=== PATIENT | male | born 1945 | race Caucasian/White ===

== ENCOUNTER → 2017-06-11 | Outpatient (CLI) | payer MEDICARE | END | disposition home or self-care (01) | LOC: MMGSC 15:41 | PROVIDERS: ATTEND Family Medicine | DX: N39.0 Urinary tract infection, site not specified (principal) | CPT/HCPCS: 87086 ==

== ENCOUNTER → 2018-02-16 | Outpatient (CLI) | payer MEDICARE ==
--- NOTE | 2018-02-16 12:07 | US ---
EXAMINATION TYPE: US extremity nonvasc complt RT DATE OF EXAM: 02/16/2018 COMPARISON: NONE CLINICAL HISTORY: RT bicep tendon rupture M66.821. Severe bruising and pain of the right upper or mid with very limited range of motion. TECHNIQUE: Daily scale images were obtained over the right upper extremity in the patient's area of pa in and bruising over the biceps tendon. Exam is limited by range of motion and patient's pain. FINDINGS: The biceps is torn, appearing as a complete retracted tear with intramuscular edema and pos sible intramuscular hematoma has been muscle body is heterogenous. Upper biceps appears to be within the bicipital groove. No subcutaneous fluid collection is seen. IMPRESSION: Sonographic findings indicative of complete biceps tear and intramuscular edema with pos sible intramuscular hematoma. MR could further assess these findings.
== END | disposition home or self-care (01) ==
LOC: RADUSWWP 10:36
PROVIDERS: ATTEND Family Medicine
DX: M66.821 Spontaneous rupture of other tendons, right upper arm (principal)

== ENCOUNTER 2018-06-22 11:23 | Observation (INO) | payer MEDICARE ==
[2018-06-22] MEDS ORDERED: MORPHINE SULFATE 4 MG/ML SYRINGE IVP STA (11:43)
[2018-06-22] MEDS ORDERED: ONDANSETRON 4 MG/2 ML VIAL IVP STA (11:43)
[2018-06-22] MEDS ORDERED: SODIUM CHLORIDE 0.9% 1,000 ML IV STA ×2 (11:43→13:48)
--- NOTE | 2018-06-22 12:09 | ED ---
Back Pain HPI - General Chief Complaint: Back Pain/Injury Stated Complaint: Back pain Time Seen by Provider: 06/22/18 11:27 Source: patient, RN notes reviewed, old records reviewed Limitations: no limitations - History of Present Illness Initial Comments: This is a 72-year-old male the ER for evaluation of severe back pain abdominal pain weakness nausea vomiting. Patient has no recent travel history sick contacts no recent medical history recent hospitalizations. MD Complaint: back pain, other (Patient denies injury) -: week(s) Similar Symptoms Previously: Yes Place: home Radiation: none Severity: mild Severity scale (1-10): 2 Quality: burning, dull, aching Consistency: constant Improves With: immobilization Worsens With: immobilization Associated Symptoms: weakness, loss of appetite, malaise, nausea/vomiting - Related Data Home Medications Medication Instructions Recorded Confirmed Albuterol Inhaler [Ventolin Hfa 1 - 2 puff INHALATION RT-Q6H PRN 06/22/18 Inhaler] Albuterol Sulfate 1.25 mg INHALATION RT-DAILY PRN 06/22/18 06/22/18 Aspirin EC [Ecotrin Low Dose] 81 mg PO DAILY 06/22/18 06/22/18 Budesonide/Formoterol Fumarate 2 puff INHALATION RT-BID 06/22/18 06/22/18 [Symbicort 160-4.5 Mcg Inhaler] Clopidogrel [Plavix] 75 mg PO DAILY 06/22/18 06/22/18 Ipratropium/Albuterol Sulfate 1 puff INHALATION RT-QID 06/22/18 06/22/18 [Combivent Respimat Inhaler] Lisinopril [Zestril] 2.5 mg PO DAILY 06/22/18 06/22/18 Metaxalone 800 mg PO Q8H PRN 06/22/18 06/22/18 Metoprolol Tartrate [Lopressor] 25 mg PO BID 06/22/18 06/22/18 Simvastatin 40 mg PO DAILY 06/22/18 06/22/18 Spironolactone 25 mg PO DAILY 06/22/18 06/22/18 methylPREDNISolone Dose Pack See Taper PO DIRECTED 06/22/18 06/22/18 [Medrol Dose Pack] Allergies Allergy/AdvReac Type Severity Reaction Status Date / Time levofloxacin [From Levaquin] Allergy TENDON PAIN Verified 06/22/18 11:57 Review of Systems ROS Statement: Those systems with pertinent positive or pertinent negative responses have been documented in the HPI. ROS Other: All systems not noted in ROS Statement are negative. Past Medical History Past Medical History: COPD, Hyperlipidemia, Hypertension, Myocardial Infarction ([place]), Pulmonary Embolus ([place]) History of Any Multi-Drug Resistant Organisms: None Reported Past Surgical History: Heart Catheterization With Stent Past Psychological History: No Psychological Hx Reported Smoking Status: Former smoker Past Alcohol Use History: Occasional Past Drug Use History: None Reported General Exam Limitations: no limitations General appearance: alert, in no apparent distress Head exam: Present: atraumatic, normocephalic, normal inspection Eye exam: Present: normal appearance, PERRL, EOMI. Absent: scleral icterus, conjunctival injection, periorbital swelling ENT exam: Present: normal exam, mucous membranes dry Neck exam: Present: normal inspection. Absent: tenderness, meningismus, lymphadenopathy Respiratory exam: Present: normal lung sounds bilaterally. Absent: respiratory distress, wheezes, rales, rhonchi, stridor Cardiovascular Exam: Present: regular rate, normal rhythm, normal heart sounds. Absent: systolic murmur, diastolic murmur, rubs, gallop, clicks GI/Abdominal exam: Present: soft, normal bowel sounds. Absent: distended, tenderness, guarding, rebound, rigid Extremities exam: Present: normal inspection, full ROM, normal capillary refill. Absent: tenderness, pedal edema, joint swelling, calf tenderness Back exam: Present: normal inspection Neurological exam: Present: alert, oriented X3, CN II-XII intact Psychiatric exam: Present: normal affect, normal mood Skin exam: Present: warm, dry, intact, normal color. Absent: rash Course Vital Signs 06/22/18 06/22/18 06/22/18 11:25 11:31 12:30 Temperature 97.7 F Pulse Rate 96 90 Respiratory 18 18 Rate Blood Pressure 116/63 116/63 125/68 O2 Sat by Pulse 94 L 90 L 94 L Oximetry 06/22/18 06/22/18 06/22/18 13:00 13:30 14:00 Temperature Pulse Rate 86 88 89 Respiratory 18 18 18 Rate Blood Pressure 122/63 125/54 127/69 O2 Sat by Pulse 96 95 92 L Oximetry 06/22/18 06/22/1806/22/19 14:12 14:30 15:45 Temperature Pulse Rate 82 81 96 Respiratory 11 L 72 H Rate Blood Pressure 126/69 123/84 O2 Sat by Pulse 98 98 Oximetry - Reevaluation(s) Reevaluation #1: 06/22/18 12:08 Medical record is reviewed Reevaluation #2: 06/22/18 12:08 Patient is improvement in nausea no improvement in pain currently Reevaluation #3: 06/22/18 15:19 Patient had fully placed does have significant urine output. Reevaluation #4: 06/22/18 15:19 Pain is patient does have improvement of pain, patient is still unable to amylase secondary to pain - Consultations Consultation #1: Yes spoke with some physicians, ladonna Quintana for admission Medical Decision Making - Medical Decision Making 72-year-old male the ER for severe back pain times a 5 weeks. No trauma. Patient is CAT scan here which is negative no significant neurological dysfunction is noted. Patient is able to ambulate here in the emergency room. Patient has mild urinary retention which is relieved does have improvement of pain. - Lab Data Result diagrams: 06/22/18 12:07 06/22/18 12:07 Lab Results 06/22/18 06/22/18 06/22/18 Range/Units 12:07 12:07 12:07 WBC 10.8 H (3.8-10.6) k/uL RBC 5.77 (4.30-5.90) m/uL Hgb 17.5 (13.0-17.5) gm/dL Hct 51.5 (39.0-53.0) % MCV 89.3 (80.0-100.0) fL MCH 30.4 (25.0-35.0) pg MCHC 34.0 (31.0-37.0) g/dL RDW 13.0 (11.5-15.5) % Plt Count 287 (150-450) k/uL Neutrophils % 78 % Lymphocytes % 11 % Monocytes % 8 % Eosinophils % 1 % Basophils % 1 % Neutrophils # 8.4 H (1.3-7.7) k/uL Lymphocytes # 1.2 (1.0-4.8) k/uL Monocytes # 0.9 (0-1.0) k/uL Eosinophils # 0.1 (0-0.7) k/uL Basophils # 0.1 (0-0.2) k/uL PT (9.0-12.0) sec INR (<1.2) APTT (22.0-30.0) sec Sodium 134 L (137-145) mmol/L Potassium 4.3 (3.5-5.1) mmol/L Chloride 98 (98-107) mmol/L Carbon Dioxide 25 (22-30) mmol/L Anion Gap 11 mmol/L BUN 32 H (9-20) mg/dL Creatinine 1.18 (0.66-1.25) mg/dL Est GFR (CKD-EPI)AfAm 72 (>60 ml/min/1.73 sqM) Est GFR (CKD-EPI)NonAf 62 (>60 ml/min/1.73 sqM) Glucose 115 H (74-99) mg/dL Plasma Lactic Acid Sandor 1.2 (0.7-2.0) mmol/L Calcium 9.5 (8.4-10.2) mg/dL Phosphorus 3.5 (2.5-4.5) mg/dL Magnesium 1.6 (1.6-2.3) mg/dL Total Bilirubin 0.8 (0.2-1.3) mg/dL AST 21 (17-59) U/L ALT 32 (21-72) U/L Alkaline Phosphatase 50 (38-126) U/L Troponin I (0.000-0.034) ng/mL NT-Pro-B Natriuret Pep pg/mL Total Protein 7.2 (6.3-8.2) g/dL Albumin 4.2 (3.5-5.0) g/dL Urine Color Urine Appearance (Clear) Urine pH (5.0-8.0) Ur Specific [place] (1.001-1.035) Urine Protein (Negative) Urine Glucose (UA) (Negative) Urine Ketones (Negative) Urine Blood (Negative) Urine Nitrite (Negative) Urine Bilirubin (Negative) Urine Urobilinogen (<2.0) mg/dL Ur Leukocyte Esterase (Negative) Urine RBC (0-5) /hpf Urine WBC (0-5) /hpf Urine Bacteria (None) /hpf Urine Mucus (None) /hpf 02/26/19 02/26/19 02/26/19 Range/Units 12:07 12:07 12:07 WBC (3.8-10.6) k/uL RBC (4.30-5.90) m/uL Hgb (13.0-17.5) gm/dL Hct (39.0-53.0) % MCV (80.0-100.0) fL MCH (25.0-35.0) pg MCHC (31.0-37.0) g/dL RDW (11.5-15.5) % Plt Count (150-450) k/uL Neutrophils % % Lymphocytes % % Monocytes % % Eosinophils % % Basophils % % Neutrophils # (1.3-7.7) k/uL Lymphocytes # (1.0-4.8) k/uL Monocytes # (0-1.0) k/uL Eosinophils # (0-0.7) k/uL Basophils # (0-0.2) k/uL PT 10.1 (9.0-12.0) sec INR 0.9 (<1.2) APTT 22.2 (22.0-30.0) sec Sodium (137-145) mmol/L Potassium (3.5-5.1) mmol/L Chloride (98-107) mmol/L Carbon Dioxide (22-30) mmol/L Anion Gap mmol/L BUN (9-20) mg/dL Creatinine (0.66-1.25) mg/dL Est GFR (CKD-EPI)AfAm (>60 ml/min/1.73 sqM) Est GFR (CKD-EPI)NonAf (>60 ml/min/1.73 sqM) Glucose (74-99) mg/dL Plasma Lactic Acid Sandor (0.7-2.0) mmol/L Calcium (8.4-10.2) mg/dL Phosphorus (2.5-4.5) mg/dL Magnesium (1.6-2.3) mg/dL Total Bilirubin (0.2-1.3) mg/dL AST (17-59) U/L ALT (21-72) U/L Alkaline Phosphatase (38-126) U/L Troponin I <0.012 (0.000-0.034) ng/mL NT-Pro-B Natriuret Pep 286 pg/mL Total Protein (6.3-8.2) g/dL Albumin (3.5-5.0) g/dL Urine Color Urine Appearance (Clear) Urine pH (5.0-8.0) Ur Specific [place] (1.001-1.035) Urine Protein (Negative) Urine Glucose (UA) (Negative) Urine Ketones (Negative) Urine Blood (Negative) Urine Nitrite (Negative) Urine Bilirubin (Negative) Urine Urobilinogen (<2.0) mg/dL Ur Leukocyte Esterase (Negative) Urine RBC (0-5) /hpf Urine WBC (0-5) /hpf Urine Bacteria (None) /hpf Urine Mucus (None) /hpf 06/22/18 Range/Units 14:59 WBC (3.8-10.6) k/uL RBC (4.30-5.90) m/uL Hgb (13.0-17.5) gm/dL Hct (39.0-53.0) % MCV (80.0-100.0) fL MCH (25.0-35.0) pg MCHC (31.0-37.0) g/dL RDW (11.5-15.5) % Plt Count (150-450) k/uL Neutrophils % % Lymphocytes % % Monocytes % % Eosinophils % % Basophils % % Neutrophils # (1.3-7.7) k/uL Lymphocytes # (1.0-4.8) k/uL Monocytes # (0-1.0) k/uL Eosinophils # (0-0.7) k/uL Basophils # (0-0.2) k/uL PT (9.0-12.0) sec INR (<1.2) APTT (22.0-30.0) sec Sodium (137-145) mmol/L Potassium (3.5-5.1) mmol/L Chloride (98-107) mmol/L Carbon Dioxide (22-30) mmol/L Anion Gap mmol/L BUN (9-20) mg/dL Creatinine (0.66-1.25) mg/dL Est GFR (CKD-EPI)AfAm (>60 ml/min/1.73 sqM) Est GFR (CKD-EPI)NonAf (>60 ml/min/1.73 sqM) Glucose (74-99) mg/dL Plasma Lactic Acid Sandor (0.7-2.0) mmol/L Calcium (8.4-10.2) mg/dL Phosphorus (2.5-4.5) mg/dL Magnesium (1.6-2.3) mg/dL Total Bilirubin (0.2-1.3) mg/dL AST (17-59) U/L ALT (21-72) U/L Alkaline Phosphatase (38-126) U/L Troponin I (0.000-0.034) ng/mL NT-Pro-B Natriuret Pep pg/mL Total Protein (6.3-8.2) g/dL Albumin (3.5-5.0) g/dL Urine Color Yellow Urine Appearance Clear (Clear) Urine pH 5.5 (5.0-8.0) Ur Specific [place] 1.028 (1.001-1.035) Urine Protein 1+ H (Negative) Urine Glucose (UA) Negative (Negative) Urine Ketones 1+ H (Negative) Urine Blood Small H (Negative) Urine Nitrite Negative (Negative) Urine Bilirubin Negative (Negative) Urine Urobilinogen <2.0 (<2.0) mg/dL Ur Leukocyte Esterase Negative (Negative) Urine RBC 5 (0-5) /hpf Urine WBC 4 (0-5) /hpf Urine Bacteria Rare H (None) /hpf Urine Mucus Rare H (None) /hpf - EKG Data -: EKG Interpreted by Me (EKG shows sinus rhythm rate of 100, RI 140, QRS 94, QTC 446) - Radiology Data Radiology results: report reviewed (CT chest and pelvis negative for acute disease), image reviewed Disposition Clinical Impression: Mid back pain, Lumbar back pain, Urinary retention, Unable to ambulate Disposition: ADMITTED IP TO THIS [facility] Condition: Fair Is patient prescribed a controlled substance at d/c from ED?: No Referrals: Sherie Branch MD [Primary Care Provider] - 1-2 days
[2018-06-22 12:17] LABS: Basophils # (A) 0.1 k/uL (0-0.2); Basophils % (A) 1 %; Eosinophils # (A) 0.1 k/uL (0-0.7); Eosinophils % (A) 1 %; HCT 51.5 % (39.0-53.0); HGB 17.5 gm/dL (13.0-17.5); Lymphocytes # (A) 1.2 k/uL (1.0-4.8); Lymphocytes % (A) 11 %; MCH 30.4 pg (25.0-35.0); MCV 89.3 fL (80.0-100.0); Mean Platelet Volume 7.5; Monocytes # (A) 0.9 k/uL (0-1.0); Monocytes % (A) 8 %; Neutrophils # (A) 8.4 k/uL (1.3-7.7); Neutrophils % (A) 78 %; Platelet Count 287 k/uL (150-450); RBC 5.77 m/uL (4.30-5.90); WBC 10.8 k/uL (3.8-10.6)
[2018-06-22 12:28] LABS: Albumin 4.2 g/dL (3.5-5.0); Calcium 9.5 mg/dL (8.4-10.2); Magnesium 1.6 mg/dL (1.6-2.3); Phosphorus 3.5 mg/dL (2.5-4.5); Potassium 4.3 mmol/L (3.5-5.1); Total Bilirubin 0.8 mg/dL (0.2-1.3); Total Protein 7.2 g/dL (6.3-8.2)
[2018-06-22 12:34] LABS: INR 0.9 (<1.2); Partial Thromboplastin Time 22.2 sec (22.0-30.0); Prothrombin Time 10.1 sec (9.0-12.0)
[2018-06-22] MEDS ORDERED: IPRATROPIUM-ALBUTEROL 3 ML NEB INHALATION STA (13:48)
[2018-06-22] MEDS ORDERED: methylPREDNISolone SOD SUCCI 125 MG/2 ML VIAL IV STA (13:48)
--- NOTE | 2018-06-22 13:57 | CT ---
EXAMINATION TYPE: CT angio chest DATE OF EXAM: 06/22/2018 COMPARISON: None HISTORY: 72-year-old male severe back pain, lack of urination TECHNIQUE: Contiguous axial scanning of the chest performed with IV Contrast, patient injected with 1 00 mL of Isovue 370. Delayed images through the kidneys were obtained. Coronal/sagittal MIP reconstru ctions performed. CT DLP: 2723.7 (CTA chest and CT abd pelvis) mGycm Automated exposure control for dose reduction was used. FINDINGS: Heart is normal size without pericardial effusion. No flattening of the interventricular septum or re flux of contrast into the hepatic veins. Coronary artery calcifications are present. Ascending aorta borderline aneurysmal at 3.9 to 4.0 cm. Conventional arch vessel branching anatomy. N o evidence for aortic dissection. Ectatic lower descending thoracic aorta 2.6 cm. Mildly enlarged caliber to the main right and left pulmonary arteries measuring up to 2.7 cm. Satisfa ctory opacification of the pulmonary arterial system no pulmonary embolus is seen. Calcified subcarinal and right hilar lymph nodes. Prominent right hilar lymph node measures 1.1 cm. Prominent 9 mm inferior left bronchial lymph node, axial image 81 and left hilar lymph nodes measurin g up to 8 mm axial image 74. Small calcified granulomas right perihilar region and strandy atelectasis or scarring at the left bas e. Mild bronchial wall thickening especially centrally. No consolidation or pleural effusion. 5 mm subpleural pulmonary nodule lateral right base, axial image 1:15 to be reassessed at follow-up. Visualized upper abdomen shows calcified granulomas in the spleen. Bones: Anterior endplate spondylosis mid to lower thoracic spine. IMPRESSION: 1. NO EVIDENCE FOR PULMONARY EMBOLUS OR AORTIC DISSECTION. 2. COPD WITH MILD EMPHYSEMA AND FINDINGS SUGGESTING UNDERLYING PULMONARY ARTERIAL HYPERTENSION. 3. PRIOR GRANULOMATOUS DISEASE. 4. SOME BORDERLINE-SIZED HILAR LYMPH NODES MEASURING UP TO 1.1 CM AND A 5 MM RIGHT BASILAR PULMONARY NODULE. SIX-MONTH FOLLOW-UP RECOMMENDED TO REASSESS.
--- NOTE | 2018-06-22 13:58 | CT ---
EXAMINATION TYPE: CT abdomen pelvis w con DATE OF EXAM: 06/22/2018 COMPARISON: None. HISTORY: Severe back pain, lack of urination CT DLP: 2723.7 (CTA chest and CT abd pelvis) mGycm, Automated Exposure Control for Dose Reduction was Utilized. CONTRAST: CT scan of the abdomen and pelvis is performed without oral but with IV Contrast, patient injected wi th 100 mL of Isovue 370. FINDINGS: LUNG BASES: Please refer to same day CTA chest report for complete details on lung bases. LIVER/GB: Liver is somewhat small in size. Gallbladder has distended margins without CT dense intralu berto gallstones or surrounding inflammatory change. PANCREAS: Mild generalized fat replaced atrophy. SPLEEN: Numerous calcifications throughout the spleen are present product of old granulomatous diseas e. ADRENALS: No significant abnormality is seen. KIDNEYS: A few simple appearing thin-walled cortical cyst bilaterally are noted. There is symmetric c ortical medullary uptake and excretion from both kidneys without hydronephrosis or concerning solid r enal mass bilaterally. Bladder is satisfactorily distended without intraluminal mass or calculus. BOWEL: Occasional diverticula in the colon are present. No acute diverticulitis. No suspicious small or large bowel dilatation. Normal-appearing appendix extends medially from the cecum. PROSTATE/SEMINAL VESICLES: A few left-sided pelvic phleboliths are seen. Prostate gland is normal in size. LYMPH NODES: No greater than 1cm abdominal or pelvic lymph nodes are appreciated. OSSEOUS STRUCTURES: Moderate multilevel spurring in the thoracolumbar spine. There is moderate disc s pace narrowing L4-L5 level with vacuum disc phenomenon. There is multilevel facet arthropathy in the lower lumbar spine.. OTHER: Moderate to severe mixed plaque in the abdominal aorta extends into iliac branch vessels. IMPRESSION: No significant acute finding is seen to account for patient's clinical symptoms of sever e back pain and dysuria.
[2018-06-22 15:06] LABS: Appearance,Urine Clear (Clear); Bacteria,Urine Rare /hpf; Bilirubin,Urine Negative (Negative); Blood,Urine Small (Negative); Color,Urine Yellow; Glucose,Urine (UA) Negative (Negative); Ketones,Urine 1+ (Negative); Leukocyte Esterase,Urine Negative (Negative); Mucus,Urine Rare /hpf; Nitrite,Urine Negative (Negative); PH, Urine 5.5 (5.0-8.0); Protein,Urine 1+ (Negative); RBC,Urine 5 /hpf (0-5); Specific Gravity,Urine 1.028 (1.001-1.035); Urobilinogen,Urine <2.0 mg/dL (<2.0); WBC,Urine 4 /hpf (0-5)
[2018-06-22] MEDS ORDERED: KETOROLAC 30 MG/ML 1 ML VIAL IVP STA (15:18)
[2018-06-22] MEDS ORDERED: HYDROmorphone 0.5 MG/0.5 ML SYRINGE IVP STA (15:18)
[2018-06-22] MEDS ORDERED: ACET/COD 300 MG/30 MG STARTER PACK 6 TAB BTL PO STA (15:21)
[2018-06-22] MEDS ORDERED: MORPHINE SULFATE 4 MG/ML SYRINGE IVP PRN (16:13)
[2018-06-22] MEDS ORDERED: ACETAMINOPHEN TAB 325 MG TAB PO PRN (16:56)
[2018-06-22] MEDS ORDERED: NALOXONE 0.4 MG/ML 1 ML VIAL IV PRN (16:56)
[2018-06-22] MEDS ORDERED: IPRATROPIUM-ALBUTEROL 3 ML NEB INHALATION PRN (17:15)
--- NOTE | 2018-06-22 17:18 | P.HPIM ---
History of Present Illness H&P Date: 06/22/18 Chief Complaint: Back pain 72-year-old male with PMH of CAD post stents, COPD, hypertension presents the ED for back pain. Patient reports that this back pain has been ongoing for the past 5 weeks, he woke up with the pain initially. Pain is located in the midline back area, continuous but waxes and wanes from 8- 10 out of 10 in severity. Patient reports that the pain radiates to the right hip and the right lower extremity down to his foot. Pain is aggravated with walking and with sitting. There are no alleviating factors. There is no prior incidents. Patient denies any trauma or heavy lifting prior to the initial onset of back pain 5 weeks ago. Patient reports that he went to [facility] and was given a steroid injection along with [place] and muscle relaxant, was told it was sciatica. Patient reports that none of these treatment helped. Patient reports going to his chiropractor for x-rays were obtained which showed arthritis of the back. His symptoms did not get better, prompting him to come to the ED. He denies any lower extremity weakness, bladder or bowel incontinence, saddle anesthesia. Patient denies any headache, lower extremity edema, nausea, vomiting, fever, cough, chest pain, shortness of breath, palpitations, dizziness. Patient does report a poor appetite for the past 5 weeks. In the ED, CBC showed a mild leukocytosis of 10.8. CMP showed a sodium of 134, BUN of 32 and glucose of 115. Urinalysis showed small blood. CT of the abdomen and pelvis was negative. CTA of the chest show no evidence of pulmonary embolus or aortic dissection, COPD with mild emphysema, 5 mm right basilar pulmonary nodule. Patient is admitted for intractable back pain, Orthopedic surgery on consult. Review of Systems All systems: negative Past Medical History Past Medical History: COPD, Hyperlipidemia, Hypertension, Myocardial Infarction ([place]), Pulmonary Embolus ([place]) History of Any Multi-Drug Resistant Organisms: None Reported Past Surgical History: Heart Catheterization With Stent Past Psychological History: No Psychological Hx Reported Smoking Status: Former smoker Past Alcohol Use History: Occasional Past Drug Use History: None Reported Medications and Allergies Home Medications Medication Instructions Recorded Confirmed Type Albuterol Inhaler [Ventolin Hfa 1 - 2 puff INHALATION RT-Q6H PRN 06/22/18 History Inhaler] Albuterol Sulfate 1.25 mg INHALATION RT-DAILY PRN 06/22/18 06/22/18 History Aspirin EC [Ecotrin Low Dose] 81 mg PO DAILY 06/22/18 06/22/18 History Budesonide/Formoterol Fumarate 2 puff INHALATION RT-BID 06/22/18 06/22/18 History [Symbicort 160-4.5 Mcg Inhaler] Clopidogrel [Plavix] 75 mg PO DAILY 06/22/18 06/22/18 History Ipratropium/Albuterol Sulfate 1 puff INHALATION RT-QID 06/22/18 06/22/18 History [Combivent Respimat Inhaler] Lisinopril [Zestril] 2.5 mg PO DAILY 06/22/18 06/22/18 History Metaxalone 800 mg PO Q8H PRN 06/22/18 06/22/18 History Metoprolol Tartrate [Lopressor] 25 mg PO BID 06/22/18 06/22/18 History Simvastatin 40 mg PO DAILY 06/22/18 06/22/18 History Spironolactone 25 mg PO DAILY 06/22/18 06/22/18 History methylPREDNISolone Dose Pack See Taper PO DIRECTED 06/22/18 06/22/18 History [Medrol Dose Pack] Allergies Allergy/AdvReac Type Severity Reaction Status Date / Time levofloxacin [From [facility] [place]] Allergy TENDON PAIN Verified 06/22/18 11:57 Physical Exam Vitals: Vital Signs Temp Pulse Resp BP Pulse Ox 06/22/18 16:58 98.2 F 95 18 138/85 98 06/22/18 15:45 96 72 H 123/84 98 06/22/18 14:30 81 11 L 126/69 98 06/22/18 14:12 82 06/22/18 14:00 89 18 127/69 92 L 06/22/18 13:30 88 18 125/54 95 06/22/18 13:00 86 18 122/63 96 06/22/18 12:30 90 18 125/68 94 L 06/22/18 11:31 116/63 90 L 06/22/18 11:25 97.7 F 96 18 116/63 94 L Intake and Output 06/22/18 06/22/18 06/22/18 06:59 14:59 22:59 Output Total 500 Balance -500 Output: Urine 500 Uretheral (Villegas) 500 Other: Weight 122.016 kg General: [non toxic], [no distress], [appears at stated age] Derm: [warm], [dry] Head: [atraumatic], [normocephalic], [symmetric] Eyes: [EOMI], [no lid lag], [anicteric sclera] Mouth: [no lip lesion], [mucus membranes moist] Cardiovascular: [S1S2 reg], [no murmur], [positive posterior tibial pulse bilateral], Lungs: [Decreased breath sounds bilateral], [no rhonchi, no rales] , [no accessory muscle use] Abdominal: [soft], [ nontender to palpation], [no guarding], [no appreciable organomegaly] Ext: [no gross muscle atrophy], [no edema], [no contractures] Neuro: [ CN II-XI grossly intact], [no focal neuro deficits] Psych: [Alert], [oriented], [appropriate affect] Midline tenderness in the lumbar and sacral spine. SLR positive right side. Strength equal in the lower extremities. Sensation intact to touch in the lower extremities. Results CBC & Chem 7: 06/22/18 12:07 06/22/18 12:07 Labs: Abnormal Lab Results - Last 24 Hours (Table) 06/22/18 06/22/18 06/22/18 Range/Units 12:07 12:07 14:59 WBC 10.8 H (3.8-10.6) k/uL Neutrophils # 8.4 H (1.3-7.7) k/uL Sodium 134 L (137-145) mmol/L BUN 32 H (9-20) mg/dL Glucose 115 H (74-99) mg/dL Urine Protein 1+ H (Negative) Urine Ketones 1+ H (Negative) Urine Blood Small H (Negative) Urine Bacteria Rare H (None) /hpf Urine Mucus Rare H (None) /hpf Thrombosis Risk Factor Assmnt - Choose All That Apply Each Factor Represents 1 point: Abnormal pulmonary function (COPD) Other Risk Factors: Yes Each Risk Factor Represents 2 Points: Age 61-74 years Thrombosis Risk Factor Assessment Total Risk Factor Score: 3 Thrombosis Risk Factor Assessment Level: Moderate Risk Assessment and Plan Assessment: Assessment and Plan 1. Lower back pain: Appears as sciatica, concerns for cord compression. CT abdomen and pelvis unremarkable for cause of back pain. CTA of the chest unremarkable as well for cause of back pain. Pain management with Tylenol, [place] and Tylenol added IV. Advanced neurochecks. Fall precautions. Follow urine cultures. Follow physical therapy and occupational therapy consult. Follow orthopedic surgery consult. 2. COPD: Stable. DuoNeb as needed 4 times a day for shortness of breath or wheezing. 3. CAD: Post stents. Continue aspirin, Lipitor and Plavix. Continue beta nicho. 4. Hypertension: BP 138/85. Continue lisinopril, metoprolol, spironolactone. Monitor vitals, adjust medications as necessary. 5. Leukocytosis: Leukocytosis of 10.8 with neutrophilia likely secondary to steroid injection in the past. No signs of infection. Follow urine cultures. Daily CBC. 6. Elevated BUN: BUN 32, creatinine within normal limits. Likely secondary to dehydration. Encourage by mouth hydration. Daily BMP. Avoid nephrotoxins. 7. Urinary retention: As per ED note. Patient reports no changes in his urination. UA shows 1+ protein, 1+ ketone, small blood. Villegas inserted in the ED, will discontinue. Strict in's and outs. Follow urine cultures. 8. Pleural nodule: As seen on CTA chest. Will need adequate outpatient follow- up. Patient admitted for intractable lower back pain, lives alone. Pending orthopedic, PT and OT evaluation. Likely DC in 1-2 days.
[2018-06-22] MEDS: HYDROmorphone 1 MG/ML 1 ML SYRINGE IV PRN ×2 (18:26→22:58)
[2018-06-22] MEDS: SYMBICORT 160-4.5 MCG INHALER INHALATION SCH (21:10)
[2018-06-22] MEDS: HYDROcodone/APAP 5-325MG 1 EACH TAB PO PRN (21:11)
[2018-06-22] MEDS: METOPROLOL TARTRATE 25 MG TAB PO SCH (21:11)
[2018-06-23] MEDS: HYDROmorphone 1 MG/ML 1 ML SYRINGE IV PRN ×4 (04:06→21:52)
[2018-06-23] MEDS: HYDROcodone/APAP 5-325MG 1 EACH TAB PO PRN ×4 (05:29→23:41)
[2018-06-23] MEDS: SYMBICORT 160-4.5 MCG INHALER INHALATION SCH ×2 (08:06→20:09)
[2018-06-23] MEDS: CLOPIDOGREL 75 MG TAB PO SCH (09:08)
[2018-06-23] MEDS: SPIRONOLACTONE 25 MG TAB PO SCH (09:08)
[2018-06-23] MEDS: METOPROLOL TARTRATE 25 MG TAB PO SCH ×2 (09:08→21:30)
[2018-06-23] MEDS: LISINOPRIL 2.5 MG TAB PO SCH (09:08)
[2018-06-23] MEDS: ATORVASTATIN 20 MG TAB PO SCH (09:08)
[2018-06-23] MEDS: ENOXAPARIN 40 MG/0.4 ML SYRINGE SQ SCH (09:09)
[2018-06-23] MEDS: ASPIRIN 81 MG PO SCH (09:09)
[2018-06-23 09:10] LABS: Basophils % (A) 0 %; Eosinophils # (A) 0.1 k/uL (0-0.7); Eosinophils % (A) 1 %; HCT 50.6 % (39.0-53.0); HGB 16.3 gm/dL (13.0-17.5); Lymphocytes % (A) 7 %; MCH 29.4 pg (25.0-35.0); MCHC 32.1 g/dL (31.0-37.0); MCV 91.6 fL (80.0-100.0); Mean Platelet Volume 7.1; Monocytes # (A) 0.9 k/uL (0-1.0); Monocytes % (A) 7 %; Neutrophils # (A) 11.4 k/uL (1.3-7.7); Neutrophils % (A) 84 %; Platelet Count 289 k/uL (150-450); RBC 5.53 m/uL (4.30-5.90); RDW 12.9 % (11.5-15.5); WBC 13.5 k/uL (3.8-10.6)
[2018-06-23 09:44] LABS: Anion Gap 11 mmol/L; Blood Urea Nitrogen 26 mg/dL (9-20); Calcium 9.3 mg/dL (8.4-10.2); Carbon Dioxide 25 mmol/L (22-30); Chloride 96 mmol/L (98-107); Glucose 97 mg/dL (74-99); Potassium 5.3 mmol/L (3.5-5.1); Sodium 132 mmol/L (137-145)
--- NOTE | 2018-06-23 11:30 | P.PN ---
Subjective Progress Note Date: 06/23/18 Principal diagnosis: Lower back pain Patient was seen and examined. No acute events overnight. Patient reports great improvement in his back pain since starting his pain regimen. Pain is currently 210 in severity. He denies any bladder or bowel incontinence. No saddle anesthesia. Patient requesting that the Villegas be taken out as he does not have bladder incontinence. He denies chest pain, shortness of breath or palpitations. Objective - Vital Signs Vital signs: Vital Signs Temp 97.6 F 06/23/18 05:00 Pulse 76 06/23/18 08:00 Resp 18 06/23/18 08:00 BP 135/73 06/23/18 05:00 Pulse Ox 93 L 06/23/18 05:00 Intake & Output 06/22/18 06/23/18 06/23/18 18:59 06:59 18:59 Intake Total 1180 1280 Output Total 500 800 700 Balance 680 480 -700 Weight 122.5 kg Intake: Oral 1180 1280 Output: Urine 500 800 700 Uretheral (Villegas) 500 800 700 Other: Voiding Method Indwelling Catheter Indwelling Catheter - Exam General: [non toxic], [no distress], [appears at stated age] Derm: [warm], [dry] Head: [atraumatic], [normocephalic], [symmetric] Eyes: [EOMI], [no lid lag], [anicteric sclera] Mouth: [no lip lesion], [mucus membranes moist] Cardiovascular: [S1S2 reg], [no murmur], [positive posterior tibial pulse bilateral], Lungs: [Decreased breath sounds bilateral], [no rhonchi, no rales] , [no accessory muscle use] Abdominal: [soft], [ nontender to palpation], [no guarding], [no appreciable organomegaly] Ext: [no gross muscle atrophy], [no edema], [no contractures] Neuro: [ CN II-XI grossly intact], [no focal neuro deficits] Psych: [Alert], [oriented], [appropriate affect] Midline tenderness in the lumbar and sacral spine. SLR positive right side. Strength equal in the lower extremities. Sensation intact to touch in the lower extremities. - Labs CBC & Chem 7: 06/23/18 07:32 06/23/18 07:32 Labs: Abnormal Lab Results - Last 24 Hours (Table) 06/22/18 06/22/18 06/22/18 Range/Units 12:07 12:07 14:59 WBC 10.8 H (3.8-10.6) k/uL Neutrophils # 8.4 H (1.3-7.7) k/uL Sodium 134 L (137-145) mmol/L Potassium (3.5-5.1) mmol/L Chloride (98-107) mmol/L BUN 32 H (9-20) mg/dL Glucose 115 H (74-99) mg/dL Urine Protein 1+ H (Negative) Urine Ketones 1+ H (Negative) Urine Blood Small H (Negative) Urine Bacteria Rare H (None) /hpf Urine Mucus Rare H (None) /hpf 06/23/18 06/23/18 Range/Units 07:32 07:32 WBC 13.5 H (3.8-10.6) k/uL Neutrophils # 11.4 H (1.3-7.7) k/uL Sodium 132 L (137-145) mmol/L Potassium 5.3 H (3.5-5.1) mmol/L Chloride 96 L (98-107) mmol/L BUN 26 H (9-20) mg/dL Glucose (74-99) mg/dL Urine Protein (Negative) Urine Ketones (Negative) Urine Blood (Negative) Urine Bacteria (None) /hpf Urine Mucus (None) /hpf Microbiology - Last 24 Hours (Table) 06/22/18 14:59 Urine Culture - Preliminary Urine,Catheterized Assessment and Plan Assessment: Assessment and Plan 1. Lower back pain: Appears as sciatica, concerns for cord compression. CT abdomen and pelvis shows moderate spurring in the thoracolumbar spine, moderate disc space narrowing L4-L5 with vacuum disc phenomenon, multilevel facet arthropathy. CTA of the chest unremarkable for cause of back pain. Pain management with Tylenol, [place] and Tylenol added IV. Advanced neurochecks. Fall precautions. Remove Villegas, follow urine cultures. Follow physical therapy and occupational therapy consult. Follow orthopedic surgery consult. 2. Hyperkalemia: Potassium 5.3. Likely secondary to spironolactone use, lisinopril. EKG without T-wave changes. Patient asymptomatic. Repeat BMP this afternoon. 3. COPD: Stable. DuoNeb as needed 4 times a day for shortness of breath or wheezing. 4. CAD: Post stents. Continue aspirin, Lipitor and Plavix. Continue beta nicho. 5. Hypertension: BP 135/73. Continue lisinopril, metoprolol, spironolactone. Monitor vitals, adjust medications as necessary. 6. Leukocytosis: Leukocytosis of 10.8-13.5 with neutrophilia likely secondary to steroid injection in the past. No signs of infection. Follow urine cultures. Daily CBC. 7. Elevated BUN: BUN 32-26, creatinine within normal limits. Likely secondary to dehydration. Encourage by mouth hydration. Daily BMP. Avoid nephrotoxins. 8. Urinary retention: As per ED note. Patient reports no changes in his urination. UA shows 1+ protein, 1+ ketone, small blood. Verbal instruction to nurse to discontinue Villegas. Strict in's and outs. Follow urine cultures. 9. Pleural nodule: As seen on CTA chest. Will need adequate outpatient follow- up. Patient admitted for intractable lower back pain, lives alone. Pending orthopedic, PT and OT evaluation.
--- NOTE | 2018-06-23 19:37 | P.CNOR ---
History of Present Illness - [facility] Consult date: 06/23/18 Requesting physician: Sarbjit Landa Consult reason: low back pain, other (Right lower extremity radiculopathy) History of present illness: Patient is a pleasant 72-year-old male who is seen and examined the bedside for further evaluation after consultation was placed for evaluation of low back pain and right lower extremity radiculopathy. Patient states approximately 5 weeks ago he woke up with pain in the low back radiating down the right lower extremity without injury. He states the pain radiates from the low back, to the right buttock, down the posterior lateral thigh, over the knee, down the inman, and over the top of the foot. He denies any specific lower extremity weakness bilaterally. He denies any left lower extremity radiculopathy. He states he initially presented to [facility] for the same symptoms. He states he was given an injection, a prescription for [place], and prescription for a muscle relaxer which did not provide any significant improvement of symptoms. He presented to [facility] emergency department for further evaluation after his symptoms have continued to be significant without any improvement. CT of the abdomen and pelvis was taken while in the emergency department. He states he has had poor appetite over the past 5 weeks and has decreased his food intake and fluid intake. He states he has lost 23 pounds over the past 5 weeks. He does have a past medical history which includes coronary artery disease with stenting, COPD, myocardial infarction, pulmonary embolism and hypertension. Past Medical History Past Medical History: COPD, Hyperlipidemia, Hypertension, Myocardial Infarction ([place]), Pulmonary Embolus ([place]) Additional Past Medical History / Comment(s): shingles affecting rt shoulder area >15 years ago, diverticulitis, colon polyps-benign Last Myocardial Infarction Date:: unk History of Any Multi-Drug Resistant Organisms: None Reported Past Surgical History: Heart Catheterization With Stent Additional Past Surgical History / Comment(s): peice of metal removed from rt eye, colonoscopy Past Anesthesia/Blood Transfusion Reactions: No Reported Reaction Additional Past Anesthesia/Blood Transfusion Reaction / Comm: clausterphobia Date of Last Stent Placement:: unk Smoking Status: Former smoker - Past Family History Mother Family Medical History: Cancer Additional Family Medical History / Comment(s): from breast cancer at age 53 Father Family Medical History: Coronary Artery Disease (CAD), Myocardial Infarction ([place] ) Additional Family Medical History / Comment(s): 4 mi's. at at age 72 Medications and Allergies Home Medications Medication Instructions Recorded Confirmed Type Albuterol Inhaler [Ventolin Hfa 1 - 2 puff INHALATION RT-Q6H PRN 06/22/18 History Inhaler] Albuterol Sulfate 1.25 mg INHALATION RT-DAILY PRN 06/22/18 06/22/18 History Aspirin EC [Ecotrin Low Dose] 81 mg PO DAILY 06/22/18 06/22/18 History Budesonide/Formoterol Fumarate 2 puff INHALATION RT-BID 06/22/18 06/22/18 History [Symbicort 160-4.5 Mcg Inhaler] Cholecalciferol (Vitamin D3) 2,000 unit PO DAILY 06/22/18 06/22/18 History [Vitamin D3] Clopidogrel [Plavix] 75 mg PO DAILY 06/22/18 06/22/18 History Ipratropium/Albuterol Sulfate 1 puff INHALATION RT-QID 06/22/18 06/22/18 History [Combivent Respimat Inhaler] Lisinopril [Zestril] 2.5 mg PO DAILY 06/22/18 06/22/18 History Metoprolol Tartrate [Lopressor] 25 mg PO BID 06/22/18 06/22/18 History Simvastatin 40 mg PO HS 06/22/18 06/22/18 History Spironolactone 25 mg PO DAILY 06/22/18 06/22/18 History methylPREDNISolone Dose Pack See Taper PO DIRECTED 06/22/18 06/22/18 History [Medrol Dose Pack] Allergies Allergy/AdvReac Type Severity Reaction Status Date / Time levofloxacin [From Levaquin] Allergy TENDON PAIN Verified 06/22/18 11:57 Physical Examination Physical exam: Patient is awake, alert, and oriented 3 Vital signs stable Good chest excursion with deep inspiration and expiration Abdomen soft nontender Examination of lumbar spine reveals skin is intact with no abrasions, lacerations, or bruises; no erythema, purulence or signs of infection Some pain with palpation along the midline of the lower lumbar spine Dorsiflexion, plantarflexion, and extensor hallucis longus positive sustained bilaterally Lower extremity strength 5/5 bilaterally Patellar reflex 1+ bilaterally No lower extremity hyperreflexia bilaterally Straight leg test negative bilateral lower extremities No signs or symptoms of DVT; no calf pain No pain with internal and external rotation of the hips bilaterally Neurovascularly intact Results Pertinent studies: CT of the abdomen and pelvis taken on 06/22/2018: Osseous structures show moderate multilevel spurring any thoracolumbar spine; L4-5 degenerative disc disease with vacuum disc phenomenon; multilevel facet arthropathy in the lower lumbar spine; no evidence of vertebral body compression fracture CT of the chest taken on 06/22/2018: No evidence for pulmonary embolism or aortic dissection; COPD with mild emphysema - Labs Labs: Abnormal Lab Results - Last 24 Hours (Table) 06/23/18 06/23/18 Range/Units 07:32 07:32 WBC 13.5 H (3.8-10.6) k/uL Neutrophils # 11.4 H (1.3-7.7) k/uL Sodium 132 L (137-145) mmol/L Potassium 5.3 H (3.5-5.1) mmol/L Chloride 96 L (98-107) mmol/L BUN 26 H (9-20) mg/dL Microbiology - Last 24 Hours (Table) 06/22/18 14:59 Urine Culture - Preliminary Urine,Catheterized H & H 06/22/18 06/23/18 Range/Units 12:07 07:32 Hgb 17.5 16.3 (13.0-17.5) gm/dL Hct 51.5 50.6 (39.0-53.0) % Coagulation 06/22/18 Range/Units 12:07 INR 0.9 (<1.2) Result Diagrams: 06/23/18 07:32 06/23/18 07:32 Assessment and Plan Assessment: Assessment: Acute low back pain Right lower extremity radiculopathy L4-5 degenerative disc disease and facet arthropathy Thoracolumbar degenerative disc disease Lumbar facet arthropathy Poor appetite over the past 5 weeks Weight loss of 23 pounds with a past 5 weeks History of coronary artery disease with stenting, COPD, myocardial infarction, pulmonary embolism and hypertension (1) Lumbar back pain with radiculopathy affecting right lower extremity Current Visit: Yes Status: Acute Code(s): M54.16 - RADICULOPATHY, LUMBAR REGION SNOMED Code(s): 456110686 (2) Degeneration of L4-L5 intervertebral disc Current Visit: Yes Status: Acute Code(s): M51.36 - OTHER INTERVERTEBRAL DISC DEGENERATION, LUMBAR REGION SNOMED Code(s): 12546358 (3) DDD (degenerative disc disease), thoracolumbar Current Visit: Yes Status: Acute Code(s): M51.35 - OTHER INTERVERTEBRAL DISC DEGENERATION, THORACOLUMBAR REGION SNOMED Code(s): 52121204 (4) Lumbar facet arthropathy Current Visit: Yes Status: Acute Code(s): M47.816 - SPONDYLOSIS W/O MYELOPATHY OR RADICULOPATHY, LUMBAR REGION SNOMED Code(s): 243766102 (5) Poor appetite Current Visit: Yes Status: Acute Code(s): R63.0 - ANOREXIA SNOMED Code(s) : 87362010 (6) Weight loss Current Visit: Yes Status: Acute Code(s): R63.4 - ABNORMAL WEIGHT LOSS SNOMED Code(s): 46927392 (7) Lumbar back pain Current Visit: Yes Status: Acute Code(s): M54.5 - LOW BACK PAIN SNOMED Code(s): 382568010 Plan: Plan: 1. After reviewing of imaging, physical examination of the patient, and obtaining history, we will currently plan to continue with conservative treatment at this time in regards to his lumbosacral spine. He has been experiencing right lower extremity radiculopathy and low back pain without significant improvement over the past 5 weeks. He denies any specific injury. He previously presented for further evaluation to [facility] but was discharged with the medication and was not found to have any significant findings. He presented to [facility] after his symptoms have failed to improve over the past 5 weeks. Imaging does show evidence of degenerative changes of his lumbar spine most significant at L4-5. He does have pain that radiates in the right lower extremity in an L5 radicular pattern. He is currently working with physical therapy during his admission to the hospital. We will plan consultation with pain management to discuss possible treatment options including the possibility of injections. Patient will be cleared for discharge form orthopedic spine standpoint. We're not planning any acute surgical intervention during his admission to the hospital. We will plan to have him follow-up in the outpatient setting in approximately 2- 3 weeks for further evaluation. He may follow-up with Og Doshi PA-C or Dr. Maximino Galicia at [facility] following discharge from hospital. If he is not improving with more time and with treatment with pain management and physical therapy, we will plan to obtain an MRI of the lumbar spine for further evaluation at that time. 2. Patient currently waiting for consultation with pain management 3. Patient will continue seen by medicine for his other medical diagnoses 4. Continue pain control with medications as prescribed 5. Patient has been discussed in detail with Dr. Maximino Galicia and he agrees with this plan Time with Patient: Greater than 30 (Including obtaining history, physical examination, reviewing of imaging, and dictation.)
[2018-06-23 20:46] VITALS: PULSE 78
[2018-06-24] MEDS: HYDROmorphone 1 MG/ML 1 ML SYRINGE IV PRN ×2 (01:35→05:19)
[2018-06-24 05:21] VITALS: BP 127/61; RESP 16; TEMP 98.1
[2018-06-24] MEDS: SYMBICORT 160-4.5 MCG INHALER INHALATION SCH (07:25)
[2018-06-24] MEDS: LISINOPRIL 2.5 MG TAB PO SCH (08:02)
[2018-06-24] MEDS: ATORVASTATIN 20 MG TAB PO SCH (08:02)
[2018-06-24] MEDS: METOPROLOL TARTRATE 25 MG TAB PO SCH (08:02)
[2018-06-24] MEDS: SPIRONOLACTONE 25 MG TAB PO SCH (08:02)
[2018-06-24 08:21] LABS: Basophils # (A) 0.1 k/uL (0-0.2); Basophils % (A) 1 %; Eosinophils # (A) 0.2 k/uL (0-0.7); Eosinophils % (A) 2 %; HCT 51.4 % (39.0-53.0); HGB 16.6 gm/dL (13.0-17.5); Lymphocytes # (A) 1.8 k/uL (1.0-4.8); Lymphocytes % (A) 19 %; MCH 29.6 pg (25.0-35.0); MCHC 32.4 g/dL (31.0-37.0); MCV 91.4 fL (80.0-100.0); Mean Platelet Volume 6.9; Monocytes # (A) 0.9 k/uL (0-1.0); Monocytes % (A) 10 %; Neutrophils # (A) 6.1 k/uL (1.3-7.7); Neutrophils % (A) 66 %; Platelet Count 297 k/uL (150-450); RBC 5.62 m/uL (4.30-5.90); WBC 9.3 k/uL (3.8-10.6)
[2018-06-24 08:35] LABS: Anion Gap 13 mmol/L; Blood Urea Nitrogen 24 mg/dL (9-20); Calcium 9.5 mg/dL (8.4-10.2); Carbon Dioxide 30 mmol/L (22-30); Chloride 89 mmol/L (98-107); Glucose 98 mg/dL (74-99); Potassium 4.7 mmol/L (3.5-5.1); Sodium 132 mmol/L (137-145)
[2018-06-24] MEDS ORDERED: GABAPENTIN 100 MG CAP PO SCH (10:30)
--- NOTE | 2018-06-24 10:50 | P.CON ---
Consult Note - . Consult date: 06/24/18 Assessment/Plan:: This is a 72-year-old gentleman with history of lower back pain with radiation to the right lower extremity down to the right foot with occasional numbness and tingling on top of his right foot. The pain started about 5 weeks ago with no precipitating events. This pain gets worse with walking and standing for too long. By physical exam the patient is alert oriented 3 in no apparent distress He has normal muscle strength in the lower extremities. Straight leg raising test on the right side is negative Internal and external rotation of the right hip joint did not elicit any pain Gavino's test negative on the right side There is mild tenderness in the lumbar paravertebral area on the right side. No sacroiliac joint tenderness. Impression and plan: The patient may have right lumbar radiculopathy. He might benefit from getting lumbar epidural steroid injection under fluoroscopic guidance however he is on Plavix and he received that yesterday. Procedure cannot be done while patient is on Plavix due to higher risk for epidural hematoma with possible paralysis. The patient can be seen in the clinic clinic as an outpatient, and then we can arrange for this injection. Right now we can add Neurontin 100 mg 3 times a day to his other analgesics. The patient is okay to be discharged home as per the pain clinic. I thank you for the consultation.
[2018-06-24] MEDS: HYDROcodone/APAP 5-325MG 1 EACH TAB PO PRN (10:51)
[2018-06-24] MEDS: ASPIRIN 81 MG PO SCH (10:52)
[2018-06-24] MEDS: CLOPIDOGREL 75 MG TAB PO SCH (10:55)
[2018-06-24] MEDS: ENOXAPARIN 40 MG/0.4 ML SYRINGE SQ SCH (10:56)
--- NOTE | 2018-06-24 11:31 | P.DS ---
Providers Date of admission: 06/22/18 16:12 Expected date of discharge: 06/24/18 Attending physician: Christi Alberto MD Consults: 06/22/18 16:11 Consult Physician Routine Consulting Provider: Julieta Galicia Consult Reason/Comments: back pain Do you want consulting provider notified?: Yes 06/23/18 16:04 Consult Physician Urgent Consulting Provider: Nahomy Galeas Consult Reason/Comments: back pain/pain managment Do you want consulting provider notified?: Yes Primary care physician: [facility] Course: 72-year-old male with PMH of CAD post stents, COPD, hypertension presents the ED for back pain. Patient reports that this back pain has been ongoing for the past 5 weeks, he woke up with the pain initially. Pain is located in the midline back area, continuous but waxes and wanes from 8- 10 out of 10 in severity. Patient reports that the pain radiates to the right hip and the right lower extremity down to his foot. Pain is aggravated with walking and with sitting. There are no alleviating factors. There is no prior incidents. Patient denies any trauma or heavy lifting prior to the initial onset of back pain 5 weeks ago. Patient reports that he went to [facility] and was given a steroid injection along with [place] and muscle relaxant, was told it was sciatica. Patient reports that none of these treatment helped. Patient reports going to his chiropractor for x-rays were obtained which showed arthritis of the back. His symptoms did not get better, prompting him to come to the ED. He denies any lower extremity weakness, bladder or bowel incontinence, saddle anesthesia. Patient denies any headache, lower extremity edema, nausea, vomiting, fever, cough, chest pain, shortness of breath, palpitations, dizziness. Patient does report a poor appetite for the past 5 weeks. In the ED, CBC showed a mild leukocytosis of 10.8. CMP showed a sodium of 134, BUN of 32 and glucose of 115. Urinalysis showed small blood. CT of the abdomen and pelvis was negative. CTA of the chest show no evidence of pulmonary embolus or aortic dissection, COPD with mild emphysema, 5 mm right basilar pulmonary nodule. Patient is admitted for intractable back pain, Orthopedic surgery on consult. Patient's low back pain certainly continued to improve throughout admission. He was evaluated by orthopedic surgery, who recommended no surgical intervention at this time and pain management referral. Pain management was consulted and recommended holding Plavix for 7 days prior to spinal injection. Patient was seen and examined prior to discharge. No acute events overnight. Patient reports a mild improvement in his lower back pain continues to be persistent. Patient reports that he is only able to walk across the hallway but must return back to his bed in order to get relief from his pain. He continues to complain of lower back pain radiating into the right lower extremity. No bladder or bowel incontinence. No saddle anesthesia. Patient reports that he should be okay to go home, has someone to watch over him and is able to call for help in the event that he needs it. General: [non toxic], [no distress], [appears at stated age] Derm: [warm], [dry] Head: [atraumatic], [normocephalic], [symmetric] Eyes: [EOMI], [no lid lag], [anicteric sclera] Mouth: [no lip lesion], [mucus membranes moist] Cardiovascular: [S1S2 reg], [no murmur], [positive posterior tibial pulse bilateral], Lungs: [Decreased breath sounds bilateral], [no rhonchi, no rales] , [no accessory muscle use] Abdominal: [soft], [ nontender to palpation], [no guarding], [no appreciable organomegaly] Ext: [no gross muscle atrophy], [no edema], [no contractures] Neuro: [ CN II-XI grossly intact], [no focal neuro deficits] Psych: [Alert], [oriented], [appropriate affect] Midline tenderness in the lumbar and sacral spine. SLR positive right side. Strength equal in the lower extremities. Sensation intact to touch in the lower extremities. Assessment and Plan 1. Lower back pain: Appears as sciatica, concerns for cord compression. CT abdomen and pelvis shows moderate spurring in the thoracolumbar spine, moderate disc space narrowing L4-L5 with vacuum disc phenomenon, multilevel facet arthropathy. CTA of the chest unremarkable for cause of back pain. Pain management with Tylenol, [place] and Tylenol added IV. Advanced neurochecks. Fall precautions. Remove Villegas, follow urine cultures. Follow physical therapy and occupational therapy consulted, recommends rolling walker. Orthopedic surgery consulted, recommends pain management consult. Pain management consult, recommends holding Plavix for 7 days prior to spinal injection. 2. COPD: Stable. DuoNeb as needed 4 times a day for shortness of breath or wheezing. 3. CAD: Post stents. Continue aspirin, Lipitor and Plavix. Continue beta nicho. 4. Hypertension: BP 127/61. Continue lisinopril, metoprolol, spironolactone. Monitor vitals, adjust medications as necessary. 5. Elevated BUN: BUN 32-26-24, creatinine within normal limits. Likely secondary to dehydration. Encourage by mouth hydration. Daily BMP. Avoid nephrotoxins. 6. Urinary retention: As per ED note. Patient reports no changes in his urination. UA shows 1+ protein, 1+ ketone, small blood. Verbal instruction to nurse to discontinue Villegas. Strict in's and outs. Urine culture negative. 7. Pleural nodule: As seen on CTA chest. Will need adequate outpatient follow- up. Patient will need to follow-up with pain management in 6 days after holding Plavix. Pertinent Studies: Abdomen pelvis CT, chest CTA Patient Condition at Discharge: Stable Plan - Discharge Summary Discharge Rx Participant: Yes New Discharge Prescriptions: New Gabapentin [Neurontin] 100 mg PO TID #90 cap oxyCODONE HCL/ACETAMINOPHEN [Percocet 10-325 mg] 1 tab PO Q4HR PRN 3 Days # 18 tab PRN Reason: Pain Continue Albuterol Inhaler [Ventolin Hfa Inhaler] 1 - 2 puff INHALATION RT-Q6H PRN PRN Reason: Shortness Of Breath Albuterol Sulfate 1.25 mg INHALATION RT-DAILY PRN PRN Reason: Shortness Of Breath Aspirin EC [Ecotrin Low Dose] 81 mg PO DAILY Budesonide/Formoterol Fumarate [Symbicort 160-4.5 Mcg Inhaler] 2 puff INHALATION RT-BID Clopidogrel [Plavix] 75 mg PO DAILY Ipratropium/Albuterol Sulfate [Combivent Respimat Inhaler] 1 puff INHALATION RT-QID Lisinopril [Zestril] 2.5 mg PO DAILY Metoprolol Tartrate [Lopressor] 25 mg PO BID Simvastatin 40 mg PO HS Spironolactone 25 mg PO DAILY Cholecalciferol (Vitamin D3) [Vitamin D3] 2,000 unit PO DAILY Discontinued methylPREDNISolone Dose Pack [Medrol Dose Pack] See Taper PO DIRECTED Discharge Medication List Albuterol Inhaler [Ventolin Hfa Inhaler] 1 - 2 puff INHALATION RT-Q6H PRN [History] Albuterol Sulfate 1.25 mg INHALATION RT-DAILY PRN 06/22/18 [History] Aspirin EC [Ecotrin Low Dose] 81 mg PO DAILY 06/22/18 [History] Budesonide/Formoterol Fumarate [Symbicort 160-4.5 Mcg Inhaler] 2 puff INHALATION RT-BID 06/22/18 [History] Cholecalciferol (Vitamin D3) [Vitamin D3] 2,000 unit PO DAILY 06/22/18 [History] Clopidogrel [Plavix] 75 mg PO DAILY 06/22/18 [History] Ipratropium/Albuterol Sulfate [Combivent Respimat Inhaler] 1 puff INHALATION RT- QID 06/22/18 [History] Lisinopril [Zestril] 2.5 mg PO DAILY 06/22/18 [History] Metoprolol Tartrate [Lopressor] 25 mg PO BID 06/22/18 [History] Simvastatin 40 mg PO HS 06/22/18 [History] Spironolactone 25 mg PO DAILY 06/22/18 [History] Gabapentin [Neurontin] 100 mg PO TID #90 cap 06/24/18 [Rx] oxyCODONE HCL/ACETAMINOPHEN [Percocet 10-325 mg] 1 tab PO Q4HR PRN 3 Days #18 tab 06/24/18 [Rx] Follow up Appointment(s)/Referral(s): Og Doshi PAC [PHYSICIAN FREEZER TUNNEL OPERATOR] - 2 Weeks (Patient may follow-up with Og Doshi PA-C or Dr. Maximino Galicia at [facility] in 2-3 weeks following discharge. ) Sherie Branch MD [Primary Care Provider] - 1-2 days Nahomy Galeas MD [STAFF PHYSICIAN] - 1 Week Patient Instructions/Handouts: Back Pain (GEN), Degenerative Disc Disease (DC) Activity/Diet/Wound Care/Special Instructions: Dr. Felton recommends Neurontin 100mg TID for now. Unable to do epidural injections due to pt. being on Plavix and this needs to be on hold x 7 days - Dr. Felton states he needs to be seen as an outpatient in the Pain Clinic after 7 days. Please hold Plavix for the next 6 days. Please follow-up with pain management in 6 days. Please take all medications as advised. Discharge Disposition: HOME SELF-CARE
== END 2018-06-24 14:40 | disposition home or self-care (01) ==
LOC: EC 11:23 → 3NMEDONC 16:12
PROVIDERS: ADMIT Family Medicine; ATTEND Family Medicine
DX: M54.5 Low back pain (principal); M12.88 Other specific arthropathies, not elsewhere classified, other specified site; E87.5 Hyperkalemia; M48.061 Spinal stenosis, lumbar region without neurogenic claudication; I25.10 Atherosclerotic heart disease of native coronary artery without angina pectoris; R33.9 Retention of urine, unspecified; I10 Essential (primary) hypertension; J43.9 Emphysema, unspecified; Z60.2 Problems related to living alone; E78.5 Hyperlipidemia, unspecified; D72.829 Elevated white blood cell count, unspecified; Z95.5 Presence of coronary angioplasty implant and graft; Z87.891 Personal history of nicotine dependence; Z79.82 Long term (current) use of aspirin; Z79.02 Long term (current) use of antithrombotics/antiplatelets; Z79.51 Long term (current) use of inhaled steroids; Z79.52 Long term (current) use of systemic steroids; Z79.899 Other long term (current) drug therapy; Z88.1 Allergy status to other antibiotic agents; I25.2 Old myocardial infarction
CPT/HCPCS: 96376 ×3; 96372; 96361; 96374; 96375; 99285; 36415; 94640 ×4; 93005 ×2; 97162; 83880; 80053; 80048 ×2; 83605; 83735; 84100; 84484; 85025 ×3; 85610; 85730; 81001; 87086; 71275; 74177; G0378 ×3; J2270; J2930; J1650; J1885; J1170 ×4; Q9967

== ENCOUNTER 2018-07-01 09:12 | Emergency (ER) | payer MEDICARE, OTHER ==
[2018-07-01 09:21] VITALS: RESP 18
[2018-07-01] MEDS ORDERED: SODIUM CHLORIDE 0.9% 1,000 ML IV STA (09:32)
[2018-07-01] MEDS ORDERED: MORPHINE SULFATE 4 MG/ML SYRINGE IV STA (09:32)
--- NOTE | 2018-07-01 09:36 | ED ---
General Adult HPI - General Chief complaint: Psychiatric Symptoms Stated complaint: SUICIDAL Time Seen by Provider: 07/01/18 09:14 Source: patient, RN notes reviewed, old records reviewed Mode of arrival: wheelchair Limitations: no limitations - History of Present Illness Initial comments: 72-year-old male presenting from outpatient surgery center with suicidal ideation and plan. Patient was scheduled for epidural injection for chronic back pain, however he did not have transportation home and was unable to undergo this procedure. Patient states he cannot deal with his pain and is planning on taking his medication in overdose and suicide plan. Patient states that he is a long, does not have anyone at home, he has not been eating well over the past 6 weeks, his is in a half-way. He states he just wants to end it all. - Related Data Home Medications Medication Instructions Recorded Confirmed Albuterol Inhaler [Ventolin Hfa 1 - 2 puff INHALATION RT-Q6H PRN 06/22/18 07/01/18 Inhaler] Albuterol Sulfate 1.25 mg INHALATION RT-DAILY PRN 06/22/18 07/01/18 Aspirin EC [Ecotrin Low Dose] 81 mg PO DAILY 06/22/18 07/01/18 Budesonide/Formoterol Fumarate 2 puff INHALATION RT-BID 06/22/18 07/01/18 [Symbicort 160-4.5 Mcg Inhaler] Cholecalciferol (Vitamin D3) 2,000 unit PO DAILY 06/22/18 07/01/18 [Vitamin D3] Ipratropium/Albuterol Sulfate 1 puff INHALATION RT-QID 06/22/18 07/01/18 [Combivent Respimat Inhaler] Lisinopril [Zestril] 2.5 mg PO DAILY 06/22/18 07/01/18 Metoprolol Tartrate [Lopressor] 25 mg PO BID 06/22/18 07/01/18 Simvastatin 40 mg PO HS 06/22/18 07/01/18 Spironolactone 25 mg PO DAILY 06/22/18 07/01/18 Clopidogrel Bisulfate [Plavix] 75 mg PO DAILY 07/01/18 07/01/18 Previous Rx's Medication Instructions Recorded Gabapentin [Neurontin] 100 mg PO TID #90 cap 06/24/18 oxyCODONE HCL/ACETAMINOPHEN 1 tab PO Q4HR PRN 3 Days #18 tab 06/24/18 [Percocet 10-325 mg] HYDROcodone/APAP 5-325MG [Slick 1 tab PO Q6HR PRN #12 tab 07/01/18 5-325] Allergies Allergy/AdvReac Type Severity Reaction Status Date / Time levofloxacin [From Levaquin] AdvReac TENDON PAIN Verified 07/01/18 09:35 Review of Systems ROS Statement: Those systems with pertinent positive or pertinent negative responses have been documented in the HPI. ROS Other: All systems not noted in ROS Statement are negative. Past Medical History Past Medical History: COPD, Hyperlipidemia, Hypertension, Myocardial Infarction ([place]), Pulmonary Embolus ([place]) Additional Past Medical History / Comment(s): shingles affecting rt shoulder area >15 years ago, diverticulitis, colon polyps-benign, chronic back pain Last Myocardial Infarction Date:: unk History of Any Multi-Drug Resistant Organisms: None Reported Past Surgical History: Heart Catheterization With Stent Additional Past Surgical History / Comment(s): peice of metal removed from rt eye, colonoscopy Past Anesthesia/Blood Transfusion Reactions: No Reported Reaction Additional Past Anesthesia/Blood Transfusion Reaction / Comment(s): clausterphobia Date of Last Stent Placement:: unk Past Psychological History: No Psychological Hx Reported Smoking Status: Former smoker Past Alcohol Use History: None Reported Past Drug Use History: None Reported - Past Family History Mother Family Medical History: Cancer Additional Family Medical History / Comment(s): from breast cancer at age 53 Father Family Medical History: Coronary Artery Disease (CAD), Myocardial Infarction ([place]) Additional Family Medical History / Comment(s): 4 mi's. at at age 72 General Exam Limitations: no limitations General appearance: alert, in no apparent distress Head exam: Present: atraumatic, normocephalic Eye exam: Present: normal appearance, PERRL ENT exam: Present: mucous membranes dry Neck exam: Present: normal inspection. Absent: tenderness, meningismus Respiratory exam: Present: normal lung sounds bilaterally. Absent: respiratory distress, wheezes Cardiovascular Exam: Present: regular rate, normal rhythm GI/Abdominal exam: Present: soft. Absent: distended, tenderness Extremities exam: Present: normal inspection Back exam: Present: normal inspection Neurological exam: Present: alert, oriented X3, CN II-XII intact. Absent: motor sensory deficit Psychiatric exam: Present: normal affect, normal mood Skin exam: Present: warm, dry, intact. Absent: cyanosis, diaphoretic Course Vital Signs 07/01/18 07/01/18 09:19 12:04 Temperature 97.1 F L Pulse Rate 76 74 Respiratory 18 18 Rate Blood Pressure 133/81 164/75 O2 Sat by Pulse 98 95 Oximetry Medical Decision Making - Medical Decision Making 72-year-old male presenting for depression, suicidal ideation. Patient medically cleared in the emergency department. He is evaluated by EPS, no longer complaining of depression or suicidal ideation. He is frustrated with his medical care regarding his chronic back pain. He is cleared from a psychiatric standpoint. He is provided an update as scheduled for his injection. He is provided with [place] [facility]. Patient is reevaluated, resting comfortably, no longer suicidal and discharge and outpatient follow-up. - Lab Data Result diagrams: 07/01/18 09:45 07/01/18 09:45 Lab Results 07/01/18 07/01/18 Range/Units 09:45 09:45 WBC 8.4 (3.8-10.6) k/uL RBC 5.36 (4.30-5.90) m/uL Hgb 15.9 (13.0-17.5) gm/dL Hct 47.7 (39.0-53.0) % MCV 88.9 (80.0-100.0) fL MCH 29.6 (25.0-35.0) pg MCHC 33.3 (31.0-37.0) g/dL RDW 12.9 (11.5-15.5) % Plt Count 265 (150-450) k/uL Neutrophils % 73 % Lymphocytes % 14 % Monocytes % 9 % Eosinophils % 2 % Basophils % 1 % Neutrophils # 6.1 (1.3-7.7) k/uL Lymphocytes # 1.2 (1.0-4.8) k/uL Monocytes # 0.7 (0-1.0) k/uL Eosinophils # 0.2 (0-0.7) k/uL Basophils # 0.1 (0-0.2) k/uL Sodium 134 L (137-145) mmol/L Potassium 4.4 (3.5-5.1) mmol/L Chloride 96 L (98-107) mmol/L Carbon Dioxide 30 (22-30) mmol/L Anion Gap 8 mmol/L BUN 15 (9-20) mg/dL Creatinine 0.92 (0.66-1.25) mg/dL Est GFR (CKD-EPI)AfAm >90 (>60 ml/min/1.73 sqM) Est GFR (CKD-EPI)NonAf 84 (>60 ml/min/1.73 sqM) Glucose 112 H (74-99) mg/dL Calcium 9.4 (8.4-10.2) mg/dL Magnesium 1.6 (1.6-2.3) mg/dL Total Bilirubin 0.6 (0.2-1.3) mg/dL AST 29 (17-59) U/L ALT 47 (21-72) U/L Alkaline Phosphatase 50 (38-126) U/L Total Protein 6.4 (6.3-8.2) g/dL Albumin 3.7 (3.5-5.0) g/dL Disposition Clinical Impression: Depression, Suicidal ideation, Chronic pain Disposition: HOME SELF-CARE Condition: Fair Instructions (If sedation given, give patient instructions): Depression (ED), Chronic Pain (ED) Prescriptions: HYDROcodone/APAP 5-325MG [Slick 5-325] 1 tab PO Q6HR PRN #12 tab PRN Reason: Pain Is patient prescribed a controlled substance at d/c from ED?: Yes When asked, does pt state using other controlled substances?: No If prescribed controlled substance>3 days was MAPS reviewed?: Prescribed <3 Days If opioid is for acute pain is fill amount 7 days or less?: Yes If Rx opioid, was Start Talking consent form obtained?: Yes Referrals: Sherie Branch MD [Primary Care Provider] - 1-2 days Time of Disposition: 13:46
[2018-07-01 10:18] LABS: ALT 47 U/L (21-72); AST 29 U/L (17-59); Albumin 3.7 g/dL (3.5-5.0); Alkaline Phosphatase 50 U/L (38-126); Blood Urea Nitrogen 15 mg/dL (9-20); Calcium 9.4 mg/dL (8.4-10.2); Carbon Dioxide 30 mmol/L (22-30); Chloride 96 mmol/L (98-107); Glucose 112 mg/dL (74-99); Magnesium 1.6 mg/dL (1.6-2.3); Potassium 4.4 mmol/L (3.5-5.1); Total Bilirubin 0.6 mg/dL (0.2-1.3); Total Protein 6.4 g/dL (6.3-8.2)
[2018-07-01 10:26] LABS: Basophils # (A) 0.1 k/uL (0-0.2); Basophils % (A) 1 %; Eosinophils # (A) 0.2 k/uL (0-0.7); Eosinophils % (A) 2 %; HCT 47.7 % (39.0-53.0); HGB 15.9 gm/dL (13.0-17.5); Lymphocytes # (A) 1.2 k/uL (1.0-4.8); Lymphocytes % (A) 14 %; MCH 29.6 pg (25.0-35.0); MCHC 33.3 g/dL (31.0-37.0); MCV 88.9 fL (80.0-100.0); Mean Platelet Volume 6.7; Monocytes # (A) 0.7 k/uL (0-1.0); Monocytes % (A) 9 %; Neutrophils # (A) 6.1 k/uL (1.3-7.7); Neutrophils % (A) 73 %; Platelet Count 265 k/uL (150-450); RBC 5.36 m/uL (4.30-5.90); RDW 12.9 % (11.5-15.5); WBC 8.4 k/uL (3.8-10.6)
[2018-07-01 10:40] LABS: Anion Gap 8 mmol/L; Sodium 134 mmol/L (137-145)
[2018-07-01] MEDS ORDERED: HYDROcodone/APAP 7.5-325MG 1 EACH TAB PO ONE (13:43)
[2018-07-01 13:54] VITALS: BP 140/84; PULSE 77; TEMP 97.3
== END 2018-07-01 15:06 | disposition home or self-care (01) ==
LOC: EC 09:12
DX: F32.9 Major depressive disorder, single episode, unspecified (principal); R45.851 Suicidal ideations; G89.29 Other chronic pain; M54.9 Dorsalgia, unspecified; J44.9 Chronic obstructive pulmonary disease, unspecified; E78.5 Hyperlipidemia, unspecified; I10 Essential (primary) hypertension; I25.2 Old myocardial infarction; Z86.711 Personal history of pulmonary embolism; Z87.891 Personal history of nicotine dependence; Z79.82 Long term (current) use of aspirin; Z79.52 Long term (current) use of systemic steroids; Z79.01 Long term (current) use of anticoagulants; Z79.899 Other long term (current) drug therapy; Z88.1 Allergy status to other antibiotic agents; Z95.5 Presence of coronary angioplasty implant and graft; Z82.49 Family history of ischemic heart disease and other diseases of the circulatory system
CPT/HCPCS: 36415; 80053; 83735; 85025; 99285; 96374; 96361 ×2; J2270

== ENCOUNTER → 2018-07-01 | Day surgery (SDC) | payer MEDICARE ==
[2018-06-30 09:02] VITALS: BMI 37.5
== END ==
LOC: ORPAIN 08:13
PROVIDERS: ATTEND Pain Medicine Pain Medicine
DX: M79.10 Myalgia, unspecified site (principal); Z53.8 Procedure and treatment not carried out for other reasons

== ENCOUNTER 2018-07-19 09:40 | Day surgery (SDC) | payer MEDICARE ==
[2018-07-13 10:24] VITALS: BMI 36.1
[~2018-07-19 09:40] MED LIST: SODIUM CHLORIDE 0.9% 500 ML 500 ML IV SCH
[2018-07-19 10:55] VITALS: RESP 18; TEMP 97.8
[2018-07-19] MEDS ORDERED: LACTATED RINGERS 1,000 ML IV ONE (10:55)
[2018-07-19] MEDS ORDERED: LIDOCAINE 1% 20 ML VIAL (10MG/ML) FOR IV START INTRADERMA ONE (10:55)
[2018-07-19] MEDS ORDERED: KETOROLAC 30 MG/ML 1 ML VIAL IVP STA (11:55)
--- NOTE | 2018-07-19 11:55 | P.PCN ---
Date of Procedure: 07/19/18 Procedure(s) Performed: PREOPERATIVE DIAGNOSIS: Lumbar radiculopathy POSTOPERATIVE DIAGNOSIS: Lumbar radiculopathy PROCEDURE 1. Lumbar epidural steroid injection under fluoroscopic guidance at the L4-5 level. ( Right paramedian approach ) 2. Lumbar epidurogram. ANESTHESIA: Local with 1% lidocaine 3 ml and , moderate sedation with intravenous Versed 1 mg ,and fentanyle 100 Mcg EBL: Minimal PROCEDURE INDICATION: The patient with low back pain and radiculitis symptoms unresponsive to conservative treatment. Fluoroscopy was used to optimize visualization of the needle placement and to maximize safety. PROCEDURE DESCRIPTION / TECHNIQUE: The patient was seen and identified in the preoperative area. Risks, benefits, complications including but not limited to infections ,bleeding ,allergic reaction to the medications ,nerve damage and not complete pain releife , and alternatives were discussed with the patient. The patient agreed to proceed with the procedure and signed the consent. IV was started, and vital signs were stable. Patient was taken to the OR and time out was completed. The patient was placed in the prone position on procedure table and a pillow was placed under the abdomen to reduce lumbar lordosis. The lumbosacral area was prepped and draped in the usual sterile fashion.ere closely monitored during the procedure. Conscious sedation was used during the procedure to decrease patients anxiety. Vital signs was monitered during the entire procedure. Using anterior-posterior fluoroscopy, the L4-5 interlaminar space was identified and the skin over this site was marked and then infiltrated with 1% lidocaine subcutaneously. Subsequently, a 20-gauge Tuohy epidural needle was inserted and advanced toward the epidural space using the ``Loss of resistance technique and guided by AP and lateral fluoroscopy. The correct needle position in the epidural space was verified with the injection of 2 mL of the water soluble contrast dye Isovue 200 contrast and observing an excellent epidurogram with the epidural spread of the dye, after negative aspiration for blood and CSF and in the absence of paresthesias. Again after negative aspiration, a 6 ml mixture containing 80 mg of Depo-medrol , and 2 ml of preservative free Normal Saline, and 2 ml of preservative free lidocaine 1% solution was injected and a washout of epidurogram was seen. Needle was withdrawn intact, skin was cleansed, and bandages were applied. COMPLICATIONS: None DISPOSITION / PLANS: The patient was placed in a supine position and transferred to the recovery area in a stable condition for observation. There was no evidence of lower extremity motor or sensory deficit after the procedure. Patient was discharged from the recovery room after meeting discharge criteria. Home discharge instructions were given to the patient by the staff. The patient was reexamined prior to discharge. The patient will schedule a follow up in the clinic in 2-4 weeks.
[2018-07-19] MEDS ORDERED: IV FLUID CONTINUATION 1,000 ML IV ONE (12:01)
--- NOTE | 2018-07-19 12:18 | FL ---
Fluoroscopy INDICATION: Pain FINDINGS: Images obtained: 1. IMPRESSIONS: 1. Documentation of fluoroscopy.
[2018-07-19 12:21] VITALS: BP 145/83; PULSE 95
== END 2018-07-19 12:48 | disposition home or self-care (01) ==
LOC: ORPAIN 09:40
PROVIDERS: ATTEND Specialist
DX: M54.16 Radiculopathy, lumbar region (principal); I25.10 Atherosclerotic heart disease of native coronary artery without angina pectoris; Z88.1 Allergy status to other antibiotic agents; Z79.02 Long term (current) use of antithrombotics/antiplatelets
CPT/HCPCS: 62323; J2250; J1030; J3010; J1885; Q9966

== ENCOUNTER → 2018-08-03 | Day surgery (SDC) | payer MEDICARE ==
[2018-07-28 15:50] VITALS: BMI 35.1
[~2018-08-03] MED LIST changes: +LACTATED RINGERS 1,000 ML IV ONE; +LACTATED RINGERS 1,000 ML IV SCH; -SODIUM CHLORIDE 0.9% 500 ML 500 ML IV SCH
[2018-08-03 09:56] LABS: Glucose,Whole Blood 116 mg/dL (75-99)
[2018-08-03 09:57] VITALS: RESP 16; TEMP 98.1
--- NOTE | 2018-08-03 10:42 | P.PCN ---
Date of Procedure: 08/03/18 Procedure(s) Performed: PREOPERATIVE DIAGNOSIS: Lumbar radiculopathy POSTOPERATIVE DIAGNOSIS: Lumbar radiculopathy PROCEDURE 1. Lumbar epidural steroid injection under fluoroscopic guidance at the L4-5 level. ( Right paramedian approach ) 2. Lumbar epidurogram. ANESTHESIA: Local with 1% lidocaine 3 ml and , moderate sedation with intravenous Versed 1 mg ,and fentanyle 50 Mcg EBL: Minimal PROCEDURE INDICATION: The patient with low back pain and radiculitis symptoms unresponsive to conservative treatment. Fluoroscopy was used to optimize visualization of the needle placement and to maximize safety. PROCEDURE DESCRIPTION / TECHNIQUE: The patient was seen and identified in the preoperative area. Risks, benefits, complications including but not limited to infections ,bleeding ,allergic reaction to the medications ,nerve damage and not complete pain releife , and alternatives were discussed with the patient. The patient agreed to proceed with the procedure and signed the consent. IV was started, and vital signs were stable. Patient was taken to the OR and time out was completed. The patient was placed in the prone position on procedure table and a pillow was placed under the abdomen to reduce lumbar lordosis. The lumbosacral area was prepped and draped in the usual sterile fashion.ere closely monitored during the procedure. Conscious sedation was used during the procedure to decrease patients anxiety. Vital signs was monitered during the entire procedure. Using anterior-posterior fluoroscopy, the L4-5 interlaminar space was identified and the skin over this site was marked and then infiltrated with 1% lidocaine subcutaneously. Subsequently, a 20-gauge Tuohy epidural needle was inserted and advanced toward the epidural space using the ``Loss of resistance technique and guided by AP and lateral fluoroscopy. The correct needle position in the epidural space was verified with the injection of 2 mL of the water soluble contrast dye Isovue 200 contrast and observing an excellent epidurogram with the epidural spread of the dye, after negative aspiration for blood and CSF and in the absence of paresthesias. Again after negative aspiration, a 6 ml mixture containing 80 mg of Depo-medrol , and 2 ml of preservative free Normal Saline, and 2 ml of preservative free lidocaine 1% solution was injected and a washout of epidurogram was seen. Needle was withdrawn intact, skin was cleansed, and bandages were applied. COMPLICATIONS: None DISPOSITION / PLANS: The patient was placed in a supine position and transferred to the recovery area in a stable condition for observation. There was no evidence of lower extremity motor or sensory deficit after the procedure. Patient was discharged from the recovery room after meeting discharge criteria. Home discharge instructions were given to the patient by the staff. The patient was reexamined prior to discharge. The patient will schedule a follow up in the clinic in 2-4 weeks.
[2018-08-03 11:07] VITALS: BP 111/79; PULSE 79
--- NOTE | 2018-08-03 11:46 | FL ---
EXAMINATION TYPE: FL guided pain mgmt statistic DATE OF EXAM: 08/03/2018 HISTORY: Flouroscopy time 1 seconds of fluoroscopy provided. IMPRESSION: 1. Fluoroscopy time.
== END | disposition home or self-care (01) ==
LOC: ORPAIN 09:14
PROVIDERS: ATTEND Specialist
DX: M51.16 Intervertebral disc disorders with radiculopathy, lumbar region (principal); I25.10 Atherosclerotic heart disease of native coronary artery without angina pectoris; I10 Essential (primary) hypertension; Z88.1 Allergy status to other antibiotic agents
CPT/HCPCS: 62323; J2250; J1030; J3010; Q9966

== ENCOUNTER → 2018-08-19 | Outpatient (CLI) | payer MEDICARE ==
[2018-08-19 12:33] VITALS: BP 104/67; PULSE 78; RESP 18
--- NOTE | 2018-08-19 13:32 | P.PAINPG ---
Subjective Progress Note Date: 08/19/18 This is a follow-up visit for this 73 years old male with history of severe low back pain, 8) lumbar radiculopathy, we have done lumbar epidural steroid injection 2 at L4 5 level, patient reported that his radicular symptoms improved, that he continued to have severe low back pain, with pain increased with any activity, patient able to ambulate, using cane , he denies any motor or sensory deficit he denies any change in bowel movements or urination Objective - Vital Signs Vital signs: Vital Signs Temp Pulse 78 08/19/18 12:27 Resp 18 08/19/18 12:27 BP 104/67 08/19/18 12:27 Pulse Ox 96 08/19/18 12:27 Intake & Output 08/18/18 08/19/18 08/19/18 18:59 06:59 18:59 Weight 114.305 kg - Exam Physical Examinations : -Constitutiona : Cooperative , not in acute distress . -HEENT : nech ; supple , no Lymphadenopathy , normal thyroid size . eyes : no ptosis , no icterus, no photophobia . - neurologic : Cranial nerve II to XII intact , no focal neurological deffecit . -psychatric : alert , oriented X 3 , appropriate affect , intact judgment and insight . -Lymphatic : no Lymphadenopathy . - musculoskeltal : Lumber spine moter stegnth lower extremities ,thigh and legs 5/5 Right side , 5/5 Left side deep tendon reflexes : normal Knee Jerk , normal ankle Jerk positive lumber facet Loading Test Range of motion of the lumbar spine Flexion 60 degrees, extension 30 degrees strait leg raising test negative bilaterally Fabere test negative bilaterally Assessment and Plan Plan: Assessment and plan= lumbar radiculopathy, improved after lumbar epidural steroid injection Lumbar spondylosis with lumbar facet arthropathy, we will order CT scan lumbar spine to confirm the diagnosis ( she should have stent in the heart, for this reason we cannot order an MRI of the lumbar spine ) Patient will be good candidate for diagnostic medial branch block lumbar area, Patient will follow up in the pain clinic in 2 weeks Time with Patient: Less than 30 PQRS Measure Charge Sheet Measure #130: Documentation of Current Meds in Medical Chart: Patient's medications documented in chart Measure #226: Tobacco Use: Screen & Cessation Intervention: Pt not a tobacco user Measure #111: Pneumonia Vaccination: Pneumococcal vaccine administered or previously received Measure #47: Advance Care Plan: Advance care planning discussed & documented, pt chose/unable to give Measure #412: Opioid Treatment Agreement: No documentation of signed opioid treatment agreement Measure #408: Opioid Therapy Follow-up Evaluation: Patient had NO f/u eval minimum every 3 months during opioid therapy Measure #317: Preventitive Care & Scrn High Bld Press & F/U: Normal blood pressure, f/u not required Measure #128: Body Mass Index (BMI) Screening & Follow-up: BMI documented ABOVE normal parameters - f/u documented Measure #131: Pain Assessment & Follow-up: Pain positive & plan documented, Follow-up scheduled Measure #431: Unhealthy Alcohol Use Preventative Care & Scrn: Patient not identified as an unhealthy alcohol user PQRS Narrative: Smoking Status Former smoker Do You Want the Pneumonia Vaccine Up to Date Vaccine AT THIS TIME? Blood Pressure 104/67 Pain Intensity [Right Hip] 2 Scale Used Numeric (1 - 10) Hx Alcohol Use (MH) No Home Medications: Ambulatory Orders Albuterol Inhaler [Ventolin Hfa Inhaler] 1 - 2 puff INHALATION RT-Q6H PRN 06/22/18 Albuterol Sulfate 1.25 mg INHALATION RT-DAILY PRN 06/22/18 Aspirin EC [Ecotrin Low Dose] 81 mg PO DAILY 06/22/18 Budesonide/Formoterol Fumarate [Symbicort 160-4.5 Mcg Inhaler] 2 puff INHALATION RT-BID 06/22/18 Cholecalciferol (Vitamin D3) [Vitamin D3] 2,000 unit PO DAILY 06/22/18 Ipratropium/Albuterol Sulfate [Combivent Respimat Inhaler] 1 puff INHALATION RT- QID 06/22/18 Lisinopril [Zestril] 2.5 mg PO DAILY 06/22/18 Metoprolol Tartrate [Lopressor] 25 mg PO BID 06/22/18 Simvastatin 40 mg PO HS 06/22/18 Spironolactone 25 mg PO DAILY 06/22/18 Gabapentin [Neurontin] 100 mg PO TID #90 cap 06/24/18 Clopidogrel Bisulfate [Plavix] 75 mg PO DAILY 07/01/18 Controlled Substance Measures - Controlled Substance Measures Is patient prescribed a controlled substance at discharge?: No
== END ==
LOC: PNWHC3 12:05
PROVIDERS: ATTEND Specialist
DX: M47.26 Other spondylosis with radiculopathy, lumbar region (principal); M46.96 Unspecified inflammatory spondylopathy, lumbar region; Z87.891 Personal history of nicotine dependence; Z79.899 Other long term (current) drug therapy; Z79.82 Long term (current) use of aspirin
CPT/HCPCS: 99211

== ENCOUNTER 2019-12-07 11:11 | Observation (INO) | payer MEDICARE ==
[2019-12-07] MEDS ORDERED: IPRATROPIUM 0.5 MG/2.5 ML NEBU INHALATION STA (11:30)
[2019-12-07] MEDS ORDERED: ALBUTEROL NEBULIZED 2.5 MG/3 ML INHALATION STA (11:30)
[2019-12-07] MEDS ORDERED: DEXAMETHASONE SOD PHOSPHATE 10 MG/ML 1 ML VIAL IV STA (11:31)
--- NOTE | 2019-12-07 11:35 | ED ---
General Adult HPI - General Chief complaint: Shortness of Breath Stated complaint: shaking, sweating Time Seen by Provider: 12/07/19 11:23 Source: patient Mode of arrival: wheelchair Limitations: no limitations - History of Present Illness Initial comments: Dictation was produced using Granular dictation software. please excuse any grammatical, word or spelling errors. This patient was cared for during a federal and state declared state of emerge ncy secondary to Covid 19 Chief Complaint: 74-year-old male presents with shortness of breath History of Present Illness: Is a 74-year-old male he has multiple comorbidities. He presents today with shortness of breath since yesterday. Patient has multiple cardiac and pulmonary comorbidities. He has history of coronary artery disease, COPD, myocardial infarctions, pulmonary embolus. He denies any history of heart failure. Patient states he is more short of breath when he lies flat. Denies any lower extremity pain. He does complain of some mild numbness to his bilateral feet. Denies any fever, chills or night sweats. Does not have a productive cough. He did report running out of his COPD medications. He does report using his albuterol inhaler today with minimal improvement. The ROS documented in this emergency department record has been reviewed and confirmed by me. Those systems with pertinent positive or negative responses have been documented in the HPI. All other systems are other negative and/or noncontributory. PHYSICAL EXAM: General Impression: Alert and oriented x3, not in acute distress HEENT: Normocephalic atraumatic, extra-ocular movements intact, pupils equal and reactive to light bilaterally, mucous membranes moist. Cardiovascular: Heart regular rate and rhythm Chest: Able to complete full sentences, no retractions, no tachypnea, diffuse lung wheezing Abdomen: abdomen soft, non-tender, non-distended, no organomegaly Musculoskeletal: Pulses present and equal in all extremities, no peripheral edema Motor: no focal deficits noted Neurological: CN II-XII grossly intact, no focal motor or sensory deficits noted Skin: Intact with no visualized rashes Psych: Normal affect and mood ED course: 74-year-old male presents with acute dyspnea. Signs upon arrival are within acceptable limits. It was suggested the patient to apply BiPAP however he refused. He was however agreeable to breathing treatment. Patient given breathing treatment with improvement of breathing symptoms. Laboratory evaluation obtained. CBC, coag panel is unremarkable. D-dimer is negative. Metabolic panel is negative. Cardiac enzymes are negative. Brain natruretic peptide is 155. Chest x-ray shows no acute cardio pulmonary process. Clinical presentation is likely secondary to COPD exacerbation. Discussed patient case with Dr. Lopez who is willing to accept patients care on behalf of of [facility]. Patient given steroids and started on Zithromax. EKG interpretation: Ventricular rate 97, normal sinus rhythm, ME interval 154, QRS 90, QTC 462. No ME prolongation, no QTC prolongation, no ST or T-wave changes noted. EKG compared to 02/19/2019 showing no changes. Overall, this EKG is unremarkable - Related Data Home Medications Medication Instructions Recorded Confirmed Albuterol Inhaler (Mhu) [Ventolin 1 - 2 puff INHALATION RT-Q6H PRN 06/22/18 08/19/18 Hfa Inhaler (Mhu)] Albuterol Sulfate 1.25 mg INHALATION RT-DAILY PRN 06/22/18 08/19/18 Aspirin EC [Ecotrin Low Dose] 81 mg PO DAILY 06/22/18 08/19/18 Budesonide/Formoterol Fumarate 2 puff INHALATION RT-BID 06/22/18 08/19/18 [Symbicort 160-4.5 Mcg Inhaler] Cholecalciferol (Vitamin D3) 2,000 unit PO DAILY 06/22/18 08/19/18 [Vitamin D3] Ipratropium/Albuterol Sulfate 1 puff INHALATION RT-QID 06/22/18 08/19/18 [Combivent Respimat Inhaler] Metoprolol Tartrate [Lopressor] 25 mg PO BID 06/22/18 08/19/18 Simvastatin 40 mg PO HS 06/22/18 08/19/18 Spironolactone 25 mg PO DAILY 06/22/18 08/19/18 lisinopriL [Zestril] 2.5 mg PO DAILY 06/22/18 08/19/18 Clopidogrel Bisulfate [Plavix] 75 mg PO DAILY 07/01/18 08/19/18 Previous Rx's Medication Instructions Recorded Gabapentin [Neurontin] 100 mg PO TID #90 cap 06/24/18 Allergies Allergy/AdvReac Type Severity Reaction Status Date / Time levofloxacin [From Levaquin] AdvReac TENDON PAIN Verified 12/07/19 13:08 Review of Systems ROS Statement: Those systems with pertinent positive or pertinent negative responses have been documented in the HPI. ROS Other: All systems not noted in ROS Statement are negative. Past Medical History Past Medical History: Coronary Artery Disease (CAD), COPD, Hyperlipidemia, Hypertension, Myocardial Infarction ([place]), Pulmonary Embolus (PE) Additional Past Medical History / Comment(s): shingles affecting rt shoulder area >15 years ago, has O2 prn, diverticulitis, colon polyps-benign, chronic back pain Last Myocardial Infarction Date:: unk History of Any Multi-Drug Resistant Organisms: None Reported Past Surgical History: Heart Catheterization With Stent Additional Past Surgical History / Comment(s): piece of metal removed from rt eye, colonoscopy Past Anesthesia/Blood Transfusion Reactions: No Reported Reaction Additional Past Anesthesia/Blood Transfusion Reaction / Comment(s): claustrophobia Date of Last Stent Placement:: unk Past Psychological History: No Psychological Hx Reported Smoking Status: Former smoker Past Alcohol Use History: Abuse, Daily Past Drug Use History: None Reported - Past Family History Mother Family Medical History: Cancer Additional Family Medical History / Comment(s): from breast cancer at age 53 Father Family Medical History: Coronary Artery Disease (CAD), Myocardial Infarction ([place]) Additional Family Medical History / Comment(s): 4 mi's. at at age 72 General Exam Limitations: no limitations Course Vital Signs 12/07/19 12/07/19 12/07/19 11:12 11:37 12:05 Temperature 98.2 F Pulse Rate 97 96 87 Respiratory 16 Rate Blood Pressure 175/84 O2 Sat by Pulse 97 Oximetry 12/07/19 12:50 Temperature Pulse Rate 105 H Respiratory 18 Rate Blood Pressure 142/84 O2 Sat by Pulse 96 Oximetry Medical Decision Making - Lab Data Result diagrams: 12/07/19 11:47 12/07/19 11:47 Lab Results 12/07/19 12/07/19 12/07/19 Range/Units 11:47 11:47 11:47 WBC 8.8 (3.8-10.6) k/uL RBC 5.60 (4.30-5.90) m/uL Hgb 16.5 (13.0-17.5) gm/dL Hct 50.3 (39.0-53.0) % MCV 89.8 (80.0-100.0) fL MCH 29.5 (25.0-35.0) pg MCHC 32.8 (31.0-37.0) g/dL RDW 12.8 (11.5-15.5) % Plt Count 257 (150-450) k/uL Neutrophils % 77 % Lymphocytes % 13 % Monocytes % 7 % Eosinophils % 1 % Basophils % 1 % Neutrophils # 6.8 (1.3-7.7) k/uL Lymphocytes # 1.1 (1.0-4.8) k/uL Monocytes # 0.6 (0-1.0) k/uL Eosinophils # 0.1 (0-0.7) k/uL Basophils # 0.0 (0-0.2) k/uL PT 9.7 (9.0-12.0) sec INR 0.9 (<1.2) APTT 22.9 (22.0-30.0) sec D-Dimer 0.36 (<0.60) mg/L FEU Sodium 133 L (137-145) mmol/L Potassium 4.8 (3.5-5.1) mmol/L Chloride 96 L (98-107) mmol/L Carbon Dioxide 26 (22-30) mmol/L Anion Gap 11 mmol/L BUN 13 (9-20) mg/dL Creatinine 0.97 (0.66-1.25) mg/dL Est GFR (CKD-EPI)AfAm >90 (>60 ml/min/1.73 sqM) Est GFR (CKD-EPI)NonAf 78 (>60 ml/min/1.73 sqM) Glucose 133 H (74-99) mg/dL Calcium 9.9 (8.4-10.2) mg/dL Troponin I (0.000-0.034) ng/mL NT-Pro-B Natriuret Pep pg/mL 12/07/19 12/07/19 Range/Units 11:47 11:47 WBC (3.8-10.6) k/uL RBC (4.30-5.90) m/uL Hgb (13.0-17.5) gm/dL Hct (39.0-53.0) % MCV (80.0-100.0) fL MCH (25.0-35.0) pg MCHC (31.0-37.0) g/dL RDW (11.5-15.5) % Plt Count (150-450) k/uL Neutrophils % % Lymphocytes % % Monocytes % % Eosinophils % % Basophils % % Neutrophils # (1.3-7.7) k/uL Lymphocytes # (1.0-4.8) k/uL Monocytes # (0-1.0) k/uL Eosinophils # (0-0.7) k/uL Basophils # (0-0.2) k/uL PT (9.0-12.0) sec INR (<1.2) APTT (22.0-30.0) sec D-Dimer (<0.60) mg/L FEU Sodium (137-145) mmol/L Potassium (3.5-5.1) mmol/L Chloride (98-107) mmol/L Carbon Dioxide (22-30) mmol/L Anion Gap mmol/L BUN (9-20) mg/dL Creatinine (0.66-1.25) mg/dL Est GFR (CKD-EPI)AfAm (>60 ml/min/1.73 sqM) Est GFR (CKD-EPI)NonAf (>60 ml/min/1.73 sqM) Glucose (74-99) mg/dL Calcium (8.4-10.2) mg/dL Troponin I <0.012 (0.000-0.034) ng/mL NT-Pro-B Natriuret Pep 155 pg/mL Disposition Clinical Impression: Dyspnea Disposition: ADMITTED IP TO THIS HOSP Condition: Fair Referrals: Sherie Branch MD [Primary Care Provider] - 1-2 days Decision Time: 13:11
[2019-12-07 12:06] LABS: Basophils % (A) 1 %; Eosinophils # (A) 0.1 k/uL (0-0.7); Eosinophils % (A) 1 %; HCT 50.3 % (39.0-53.0); HGB 16.5 gm/dL (13.0-17.5); Lymphocytes # (A) 1.1 k/uL (1.0-4.8); Lymphocytes % (A) 13 %; MCH 29.5 pg (25.0-35.0); MCHC 32.8 g/dL (31.0-37.0); MCV 89.8 fL (80.0-100.0); Mean Platelet Volume 8.1; Monocytes # (A) 0.6 k/uL (0-1.0); Monocytes % (A) 7 %; Neutrophils # (A) 6.8 k/uL (1.3-7.7); Neutrophils % (A) 77 %; Platelet Count 257 k/uL (150-450); RDW 12.8 % (11.5-15.5); WBC 8.8 k/uL (3.8-10.6)
[2019-12-07 12:23] LABS: D-Dimer 0.36 mg/L FEU (<0.60); INR 0.9 (<1.2); Partial Thromboplastin Time 22.9 sec (22.0-30.0); Prothrombin Time 9.7 sec (9.0-12.0)
[2019-12-07 12:35] LABS: African American GFR (CKD) >90 (>60 ml/min/1.73 sqM); Anion Gap 11 mmol/L; Blood Urea Nitrogen 13 mg/dL (9-20); Calcium 9.9 mg/dL (8.4-10.2); Carbon Dioxide 26 mmol/L (22-30); Chloride 96 mmol/L (98-107); Glucose 133 mg/dL (74-99); Non-African American GFR(CKD) 78 (>60 ml/min/1.73 sqM); Potassium 4.8 mmol/L (3.5-5.1); Sodium 133 mmol/L (137-145)
--- NOTE | 2019-12-07 13:08 | XR ---
EXAMINATION TYPE: XR chest 2V DATE OF EXAM: 12/07/2019 COMPARISON: Prior chest x-ray 03/23/2011 HISTORY: Dyspnea TECHNIQUE: Frontal and lateral views of the chest are obtained. FINDINGS: There is no focal air space opacity, pleural effusion, or pneumothorax seen. Prominent cassandra g volumes with flattening the hemidiaphragms is again noted, consider underlying COPD. Thoracic spond ylosis is again noted. The cardiac silhouette size is within normal limits. The aorta is dense. Ther e is eventration of the right hemidiaphragm. The osseous structures are intact. IMPRESSION: No acute cardiopulmonary process.
[2019-12-07] MEDS ORDERED: LORazepam 2 MG/ML INJ IV STA (13:49)
[2019-12-07] MEDS ORDERED: LORazepam 2 MG/ML INJ IV PRN (14:13)
[2019-12-07] MEDS ORDERED: NALOXONE 0.4 MG/ML 1 ML VIAL IV PRN (14:13)
[2019-12-07] MEDS ORDERED: MORPHINE SULFATE 4 MG/ML SYRINGE IV PRN (14:13)
[2019-12-07] MEDS ORDERED: traMADol 50 MG TAB PO PRN (14:13)
[2019-12-07] MEDS ORDERED: ACETAMINOPHEN TAB 325 MG TAB PO PRN (14:13)
[2019-12-07] MEDS ORDERED: ONDANSETRON 4 MG/2 ML VIAL IVP PRN (14:13)
[2019-12-07] MEDS ORDERED: DOCUSATE 100 MG CAP PO PRN (14:13)
[2019-12-07] MEDS ORDERED: ALBUTEROL NEBULIZED 2.5 MG/3 ML INHALATION PRN (14:29)
[2019-12-07] MEDS: AZITHROMYCIN 500 MG TAB PO SCH (14:40)
--- NOTE | 2019-12-07 14:43 | CT ---
EXAMINATION TYPE: CT angio chest DATE OF EXAM: 12/07/2019 COMPARISON: CT 06/22/2018, chest x-ray 04/15/2020 HISTORY: Rule out PE, JEFF, Lung mass CT DLP: 1063.4 mGycm Automated exposure control for dose reduction was used. CONTRAST: CTA scan of the thorax is performed without and with IV Contrast, patient injected with 100 ml mL of Isovue 370, pulmonary embolism protocol. MIP images are created and reviewed. 3D reconstructed imag es are created on an independent workstation and reviewed. FINDINGS: LUNGS: The lungs are remarkable for some peripheral groundglass opacity present bilaterally scattered in the subpleural locations greater on the left, there is no concerning parenchymal mass or nodule i dentified. Calcified nodule present in the right lower lobe on axial image #111. There is no pleural effusion or pneumothorax seen. The tracheobronchial tree is patent. There are emphysematous changes present within the lungs. Small soft tissue nodule on axial image 120 pleural-based measuring or mil limeters. AORTA: Atheromatous changes are present within the aorta, there is ectasia noted in the infrarenal l ocation which is incompletely evaluated. MEDIASTINUM: There is satisfactory enhancement of the pulmonary artery and its branches, there is no CT evidence for pulmonary embolism. There are no greater than 1 cm hilar or mediastinal lymph nodes. No pericardial effusion is seen. There are coronary artery calcifications. Calcified subcarinal no kavitha are present. Calcified right hilar nodes. OTHER: Calcifications noted within the spleen.. IMPRESSION: CORRELATE FOR PNEUMONIA INCLUDING COVID AND EMPHYSEMA. Old granulomatous disease. Additional findings above. No evident pulmonary embolism.
--- NOTE | 2019-12-07 15:13 | P.HPIM ---
History of Present Illness H&P Date: 12/07/19 Chief Complaint: chills, shakes, sweats, shortness of breath 74-year-old male with past medical history of CAD, COPD, pulmonary embolism, severe lumbar radiculopathy presented with generalized complaints of shakes, chills, sweats, shortness of breath. Patient tells me that for the past several days, he been feeling worse and worse, has lost his appetite, and has developed shakes, chills, sweats, shortness of breath. Patient says that his dyspnea is particularly worse when he lies flat on his side. These symptoms have made him feel incredibly unsettled and anxious. He has not been eating much at home since developing the symptoms. He has COPD but normally does not use oxygen at home except at night. However, he's been increasing his inhaler usage. He denies fevers, nausea, vomiting, abdominal pain, chest pain, palpitations, dysuria, dyschezia, bloating, numbness. He reports chills, shakes, sweats, dyspnea, anxiety. On arrival patient was afebrile, 142/84, heart rate 105, 96% on 3 L of NC. CBC is unremarkable. Chemistries are unremarkable. Coagulation profile is unremarkable. D-dimer was 0.36. Troponin was less than 0.012. BNP was 155. Chest x-ray was significant for reticulonodular opacities more predominant on the left than right as well as loss of anterior mediastinum space on lateral view. EKG was normal sinus rhythm. CT of the thorax was negative for pulmonary embolism but did confirm some peripheral groundglass opacity present bi laterally, greater on the left and right. Review of Systems All Systems reviewed and pertinent positives and negatives noted in HPI, all other symptoms are negative Past Medical History Past Medical History: Coronary Artery Disease (CAD), COPD, GERD/Reflux, Hyperlipidemia, Hypertension, Myocardial Infarction ([place]), Pulmonary Embolus (PE), Renal Disease Additional Past Medical History / Comment(s): Home oxygen prn and pt states he usually wears at night at 2.5 liters, bilateral PEs in 2003, ETOH abuse-pt states he has never had withdrawal symptoms, chronic low back pain/sciatica/spurs/disc disease much improved after back injections, past urinary retention, diverticulitis/benign colon polyps removed, nephrolithiasis- passed stones on his own, shingelles 16 years ago-R shoulder. Last Myocardial Infarction Date:: 2010 History of Any Multi-Drug Resistant Organisms: None Reported Past Surgical History: Heart Catheterization With Stent Additional Past Surgical History / Comment(s): Back injections for pain, piece of metal removed from rt eye, EGD, colonoscopy Past Anesthesia/Blood Transfusion Reactions: No Reported Reaction Additional Past Anesthesia/Blood Transfusion Reaction / Comment(s): claustrophobia Date of Last Stent Placement:: 2010 Smoking Status: Former smoker - Past Family History Mother Family Medical History: Cancer Additional Family Medical History / Comment(s): from breast cancer at age 53 Father Family Medical History: Coronary Artery Disease (CAD), Myocardial Infarction ([place]) Additional Family Medical History / Comment(s): 4 mi's/CABG. at at age 72 Medications and Allergies Home Medications Medication Instructions Recorded Confirmed Type Aspirin EC [Ecotrin Low Dose] 81 mg PO DAILY 06/22/18 12/07/19 History Budesonide/Formoterol Fumarate 2 puff INHALATION RT-BID 06/22/18 12/07/19 History [Symbicort 160-4.5 Mcg Inhaler] Ipratropium/Albuterol Sulfate 1 puff INHALATION RT-QID 06/22/18 12/07/19 History [Combivent Respimat Inhaler] Metoprolol Tartrate [Lopressor] 25 mg PO BID 06/22/18 12/07/19 History Spironolactone 25 mg PO DAILY 06/22/18 12/07/19 History lisinopriL [Zestril] 2.5 mg PO HS 06/22/18 12/07/19 History Clopidogrel Bisulfate [Plavix] 75 mg PO DAILY 07/01/18 12/07/19 History Albuterol Inhaler [Ventolin Hfa 2 puff INHALATION RT-TID PRN 12/07/19 12/07/19 History Inhaler] Albuterol Nebulized [Ventolin 2.5 mg INHALATION RT-QID 12/07/19 12/07/19 History Nebulized] Cholecalciferol [Vitamin D3 (25 2,000 unit PO DAILY 12/07/19 12/07/19 History Mcg = 1000 Iu)] Loratadine [Claritin] 10 mg PO DAILY 12/07/19 12/07/19 History Simvastatin [Zocor] 40 mg PO HS 12/07/19 12/07/19 History Tiotropium 18 Mcg/Puff [Spiriva] 2 puff INHALATION RT-DAILY 12/07/19 12/07/19 History Allergies Allergy/AdvReac Type Severity Reaction Status Date / Time levofloxacin [From Levaquin] AdvReac TENDON PAIN Verified 12/07/19 13:08 Physical Exam Osteopathic Statement: *. No significant issues noted on an osteopathic structural exam other than those noted in the History and Physical/Consult. Vitals: Vital Signs Temp Pulse Resp BP Pulse Ox 12/07/19 14:44 98 19 153/82 96 12/07/19 13:27 98 F 94 19 142/83 96 12/07/19 12:50 105 H 18 142/84 96 12/07/19 12:05 87 12/07/19 11:37 96 12/07/19 11:12 98.2 F 97 16 175/84 97 Intake and Output 12/06/19 12/07/19 12/07/19 22:59 06:59 14:59 Other: Weight 122.47 kg Gen: awake, alert HEENT: normocephalic, atraumatic, good hearing acuity, moist mucous membranes, +thyroid nodules b/l Resp: Diminished breath sounds on the left with fine crackles, scattered inspiratory and expiratory wheezes, worse on the right CVS: RRR, no murmurs, clicks, gallops GI: soft, NTTP, ND : no SPT, no CVAT, cortez catheter not present MSK: no pitting edema, no clubbing Neuro: non-focal, no sensory deficits, appropriate tone Psych: cooperative, euthymic mood Results CBC & Chem 7: 12/07/19 11:47 12/07/19 11:47 Labs: Abnormal Lab Results - Last 24 Hours (Table) 12/07/19 Range/Units 11:47 Sodium 133 L (137-145) mmol/L Chloride 96 L (98-107) mmol/L Glucose 133 H (74-99) mg/dL Thrombosis Risk Factor Assmnt - Choose All That Apply Any of the Below Risk Factors Present?: Yes Each Factor Represents 1 point: Obesity (BMI >25), Serious lung disease incl. pneumonia (< 1month) Other Risk Factors: Yes Each Risk Factor Represents 2 Points: Age 61-74 years Each Risk Factor Represents 3 Points: History of DVT/PE Other congenital or acquired thrombophilia - If yes, enter type in comment: No Thrombosis Risk Factor Assessment Total Risk Factor Score: 7 Thrombosis Risk Factor Assessment Level: High Risk Assessment and Plan Assessment: 1. Acute hypoxemic respiratory failure 2. Patient suspected to have COVID-19 3. COPD exacerbation 4. History of pulmonary embolism 5. Coronary artery disease 6. Severe lumbar radiculopathy 74-year-old man past medical history of CAD, pulmonary embolism, COPD presented with generalized complaints of shakes, chills, sweats, shortness of breath and was found to be in acute hypoxemic respiratory failure requiring 3-4 L of oxygen with CT and chest x-ray concerning for atypical infection versus viral infection such as Covid 19. Plan: - admit to contact/droplet precautions - COVID testing, and inflammatory labwork: CBC, BMP, LFTs, Mg, Phos, CK, CRP, D- Dimer, Ferritin, LDH, Procalcitonin, BCx - continue azithromycin, prednisone - symbicort BID + duonebs PRN - oxygen PRN, wean as tolerated - UA, BCx - ativan PRN for anxiety - TSH/FT4 for +thyroid nodules found on phx - telemetry - remainder of care per med rec Full Code, but does not want prolonged vent course for non-reversible morbidity Decision Maker: DVT PPx: enoxaparin 40U subcu
[2019-12-07 15:22] LABS: Appearance,Urine Clear (Clear); Bilirubin,Urine Negative (Negative); Blood,Urine Negative (Negative); Color,Urine Light Yellow; Glucose,Urine (UA) Negative (Negative); Ketones,Urine Negative (Negative); Leukocyte Esterase,Urine Negative (Negative); Nitrite,Urine Negative (Negative); Protein,Urine Negative (Negative); Specific Gravity,Urine 1.016 (1.001-1.035); Urobilinogen,Urine <2.0 mg/dL (<2.0)
[2019-12-07] MEDS: IPRATROPIUM-ALBUTEROL 3 ML NEB INHALATION PRN ×2 (15:24→19:57)
[2019-12-07] MEDS: ALBUTEROL NEBULIZED 2.5 MG/3 ML INHALATION SCH ×2 (15:24→19:57)
[2019-12-07] MEDS: SYMBICORT 160-4.5 MCG INHALER INHALATION SCH (20:04)
[2019-12-07] MEDS: METOPROLOL TARTRATE 25 MG TAB PO SCH (22:13)
[2019-12-07] MEDS: ATORVASTATIN 20 MG TAB PO SCH (22:13)
[2019-12-08 07:32] LABS: Basophils # (A) 0.1 k/uL (0-0.2); Basophils % (A) 1 %; Eosinophils # (A) 0.2 k/uL (0-0.7); Eosinophils % (A) 3 %; HCT 48.5 % (39.0-53.0); HGB 15.4 gm/dL (13.0-17.5); Lymphocytes # (A) 1.3 k/uL (1.0-4.8); Lymphocytes % (A) 18 %; MCH 29.1 pg (25.0-35.0); MCHC 31.6 g/dL (31.0-37.0); Mean Platelet Volume 8.1; Monocytes # (A) 0.6 k/uL (0-1.0); Monocytes % (A) 8 %; Neutrophils # (A) 4.8 k/uL (1.3-7.7); Neutrophils % (A) 68 %; Platelet Count 239 k/uL (150-450); RBC 5.28 m/uL (4.30-5.90); RDW 13.1 % (11.5-15.5)
[2019-12-08] MEDS: SYMBICORT 160-4.5 MCG INHALER INHALATION SCH ×2 (07:36→19:14)
[2019-12-08] MEDS: IPRATROPIUM 0.5 MG/2.5 ML NEBU INHALATION SCH ×4 (07:36→18:39)
[2019-12-08] MEDS: ALBUTEROL NEBULIZED 2.5 MG/3 ML INHALATION SCH ×4 (07:36→18:39)
[2019-12-08 07:41] LABS: ALT 18 U/L (4-49); AST 25 U/L (17-59); African American GFR (CKD) 88 (>60 ml/min/1.73 sqM); Albumin 4.2 g/dL (3.5-5.0); Alkaline Phosphatase 54 U/L (38-126); Anion Gap 8 mmol/L; Bilirubin, Delta 0.2 mg/dL (0.0-0.2); Bilirubin,Unconjugated 0.9 mg/dL (0.0-1.1); Blood Urea Nitrogen 11 mg/dL (9-20); Calcium 9.3 mg/dL (8.4-10.2); Carbon Dioxide 32 mmol/L (22-30); Chloride 96 mmol/L (98-107); Glucose 118 mg/dL (74-99); LDH 385 U/L (313-618); Magnesium 1.7 mg/dL (1.6-2.3); Non-African American GFR(CKD) 76 (>60 ml/min/1.73 sqM); Phosphorus 3.9 mg/dL (2.5-4.5); Sodium 136 mmol/L (137-145); Total Bilirubin 1.1 mg/dL (0.2-1.3); Total Protein 7.3 g/dL (6.3-8.2)
[2019-12-08 08:15] LABS: Potassium 4.8 mmol/L (3.5-5.1)
[2019-12-08] MEDS ORDERED: predniSONE 20 MG TAB PO SCH (09:00)
[2019-12-08] MEDS: SPIRONOLACTONE 25 MG TAB PO SCH (09:32)
[2019-12-08] MEDS: ASPIRIN 81 MG PO SCH (09:32)
[2019-12-08] MEDS: ENOXAPARIN 40 MG/0.4 ML SYRINGE SQ SCH (09:32)
[2019-12-08] MEDS: CHOLECALCIFEROL 1,000 UNIT TAB PO SCH (09:32)
[2019-12-08] MEDS: METOPROLOL TARTRATE 25 MG TAB PO SCH ×2 (09:32→21:12)
[2019-12-08] MEDS: LORATADINE 10 MG TAB PO SCH (09:33)
[2019-12-08] MEDS: CLOPIDOGREL 75 MG TAB PO SCH (09:33)
[2019-12-08 09:35] LABS: C Reactive Protein <5.0 mg/L (<10.0)
--- NOTE | 2019-12-08 11:42 | P.CNPUL ---
History of Present Illness Consult date: 12/08/19 Requesting physician: Jesse Lopez Reason for consult: COPD, pneumonia Chief complaint: Shortness of breath, chills, night sweats. History of present illness: This is a 74-year-old white male with history of severe COPD, maintained on oxygen which she uses mostly at night. Normally sees in the office for his underlying COPD. Patient is usually on multiple bronchodilators, and he gets his medications through the [place]. Few days ago, he ran out of his inhalers, and could not get them in time. Hence he developed worsening symptoms of shortness of breath, cough, the cough is productive with whitish phlegm, chills, but no documented fever, and he also had some night sweats. Chest x-ray on admission showed no evidence of active disease. However the CT of the chest showed some nonspecific peripheral areas of pneumonitis. Extremely minimal, and the radiologist raised the possibility of covid 19 pneumonitis. Hence the patient was admitted and this consult was initiated. PCR for ziegler virus pneumonia is pending. Patient is now on antibiotics, bronchodilators, and s teroids, minimal improvement over the last 12 hours. Review of Systems Constitutional: No weight loss, no fever, chills and night sweats. HEENT: Negative. Pulmonary: As noted in HPI. Cardiac: Negative. GI: Negative. Genitourinary: Negative. Skin: Negative. Hematologic: Negative. Psychiatric: Negative. Endocrine: Negative. Mus[place] skeletal: Negative. Neurologic: Negative. Past Medical History Past Medical History: Coronary Artery Disease (CAD), COPD, GERD/Reflux, Hyperlipidemia, Hypertension, Myocardial Infarction (MS), Pulmonary Embolus (PE), Renal Disease Additional Past Medical History / Comment(s): Home oxygen prn and pt states he usually wears at night at 2.5 liters, bilateral PEs in 2003, ETOH abuse-pt states he has never had withdrawal symptoms, chronic low back pain/sciatica/spurs/disc disease much improved after back injections, past urinary retention, diverticulitis/benign colon polyps removed, nephrolithiasis- passed stones on his own, shingelles 16 years ago-R shoulder. Last Myocardial Infarction Date:: 2010 History of Any Multi-Drug Resistant Organisms: None Reported Past Surgical History: Heart Catheterization With Stent Additional Past Surgical History / Comment(s): Back injections for pain, piece of metal removed from rt eye, EGD, colonoscopy Past Anesthesia/Blood Transfusion Reactions: No Reported Reaction Additional Past Anesthesia/Blood Transfusion Reaction / Comment(s): claustrophobia Date of Last Stent Placement:: 2010 Smoking Status: Former smoker - Past Family History Mother Family Medical History: Cancer Additional Family Medical History / Comment(s): from breast cancer at age 53 Father Family Medical History: Coronary Artery Disease (CAD), Myocardial Infarction (MS) Additional Family Medical History / Comment(s): 4 mi's/CABG. at at age 72 Medications and Allergies Home Medications Medication Instructions Recorded Confirmed Type Aspirin EC [Ecotrin Low Dose] 81 mg PO DAILY 06/22/18 12/07/19 History Budesonide/Formoterol Fumarate 2 puff INHALATION RT-BID 06/22/18 12/07/19 History [Symbicort 160-4.5 Mcg Inhaler] Ipratropium/Albuterol Sulfate 1 puff INHALATION RT-QID 06/22/18 12/07/19 History [Combivent Respimat Inhaler] Metoprolol Tartrate [Lopressor] 25 mg PO BID 06/22/18 12/07/19 History Spironolactone 25 mg PO DAILY 06/22/18 12/07/19 History lisinopriL [Zestril] 2.5 mg PO HS 06/22/18 12/07/19 History Clopidogrel Bisulfate [Plavix] 75 mg PO DAILY 07/01/18 12/07/19 History Albuterol Inhaler [Ventolin Hfa 2 puff INHALATION RT-TID PRN 12/07/19 12/07/19 History Inhaler] Albuterol Nebulized [Ventolin 2.5 mg INHALATION RT-QID 12/07/19 12/07/19 History Nebulized] Cholecalciferol [Vitamin D3 (25 2,000 unit PO DAILY 12/07/19 12/07/19 History Mcg = 1000 Iu)] Loratadine [Claritin] 10 mg PO DAILY 12/07/19 12/07/19 History Simvastatin [Zocor] 40 mg PO HS 12/07/19 12/07/19 History Tiotropium 18 Mcg/Puff [Spiriva] 2 puff INHALATION RT-DAILY 12/07/19 12/07/19 History Allergies Allergy/AdvReac Type Severity Reaction Status Date / Time levofloxacin [From [facility]] AdvReac TENDON PAIN Verified 12/07/19 13:08 Physical Exam Vitals: Vital Signs Temp Pulse Pulse Resp BP BP BP 12/08/19 11:31 94 12/08/19 11:16 92 12/08/19 09:23 97.9 F 88 16 151/79 12/08/19 07:56 90 12/08/19 07:36 88 12/08/19 03:00 97.6 F 65 20 118/55 12/07/19 21:00 79 19 12/07/19 20:05 81 12/07/19 19:57 81 12/07/19 19:30 98.1 F 79 19 127/75 12/07/19 17:12 97.4 F L 89 16 139/75 12/07/19 16:49 98.4 F 82 17 114/61 12/07/19 15:47 87 19 148/87 12/07/19 15:34 93 12/07/19 15:24 92 12/07/19 14:44 98 19 153/82 12/07/19 13:27 98 F 94 19 142/83 12/07/19 12:50 105 H 18 142/84 12/07/19 12:05 87 12/07/19 11:37 96 Pulse Ox 12/08/19 11:31 12/08/19 11:16 12/08/19 09:23 97 12/08/19 07:56 12/08/19 07:36 12/08/19 03:00 97 12/07/19 21:00 12/07/19 20:05 12/07/19 19:57 12/07/19 19:30 97 12/07/19 17:12 97 12/07/19 16:49 96 12/07/19 15:47 97 12/07/19 15:34 12/07/19 15:24 12/07/19 14:44 96 12/07/19 13:27 96 12/07/19 12:50 96 12/07/19 12:05 12/07/19 11:37 Intake and Output 12/07/19 12/08/19 12/08/19 22:59 06:59 14:59 Intake Total 480 240 Balance 480 240 Intake: Oral 480 240 Other: Voiding Method Toilet Toilet Toilet Urinal Urinal Urinal # Voids 1 1 Weight 128.8 kg General: Revealed 74-year-old white male obese in no distress, on few liters nasal cannula. Derm: [warm], [dry] Head: [atraumatic], [normocephalic], [symmetric] Eyes: [EOMI], [no lid lag], [anicteric sclera] Mouth: [no lip lesion], [mucus membranes moist] Cardiovascular: [S1S2 reg], [no murmur], [positive posterior tibial pulse bilate ral], Lungs: [Decreased breath sounds bilateral], minimal wheezing on forced expiratory maneuver. Abdominal: Obese, [soft], [ nontender to palpation], [no guarding], [no appreciable organomegaly] Ext: [no gross muscle atrophy], [no edema], [no contractures] Neuro: [ CN II-XI grossly intact], [no focal neuro deficits] Psych: [Alert], [oriented], [appropriate affect] Results - Laboratory Findings CBC and BMP: 12/08/19 07:02 12/08/19 07:02 PT/INR, D-dimer PT 9.7 sec (9.0-12.0) 12/07/19 11:47 INR 0.9 (<1.2) 12/07/19 11:47 D-Dimer 0.47 mg/L FEU (<0.60) 12/08/19 07:02 Abnormal lab findings: Abnormal Labs 12/07/19 12/08/19 11:47 07:02 Sodium 133 L 136 L Chloride 96 L 96 L Carbon Dioxide 32 H Glucose 133 H 118 H - Diagnostic Findings CT scan - chest: image reviewed (As noted in HPI.) Assessment and Plan Assessment: Impression: Acute exacerbation of COPD. Acute nonspecific atypical pneumonitis. Chronic hypoxic respiratory failure. History of pulmonary embolism. Benign essential hypertensio History of coronary artery disease and previous stent placement. History of chronic low back pain. History of GERD. Recommendation: Fully agree with the present treatment plan. Strongly doubt covid 19 pneumonitis. The findings on the CT of the chest are minimal and nonspecific. Continue empiric antibiotics and decide further treatment depending on the protocol to the level. Continue bronchodilators. Continue Solu-Medrol. Reevaluated in the next 24 hours and decide on discharge planning depending on the clinical improvement over the next 24 hours. Resume home meds. We'll continue to follow Time with Patient: Greater than 30
[2019-12-08] MEDS: methylPREDNISolone SOD SUCCI 125 MG/2 ML VIAL IV SCH ×2 (12:41→17:16)
[2019-12-08 13:25] VITALS: BMI 45.8
[2019-12-08] MEDS: AZITHROMYCIN 500 MG TAB PO SCH (14:06)
[2019-12-08] MEDS: IPRATROPIUM-ALBUTEROL 3 ML NEB INHALATION PRN ×2 (15:26→19:14)
[2019-12-08] MEDS ORDERED: MELATONIN 5 MG TABLET PO PRN (17:35)
--- NOTE | 2019-12-08 17:57 | P.PN ---
Subjective Progress Note Date: 12/08/19 Principal diagnosis: shortness of breath Patient is a 74-year-old male for history of CAD, COPD, pulmonary embolism, severe lumbar radiculopathy, hypertension, and GERD who presented with shortness of breath associated with chills and sweats. On arrival to the ER to hypertensive with blood pressure of 175/84. Laboratory analysis showed sodium of 133, glucose 133, LDH 431, troponin was negative, BNP 155, TSH 1.1, urinalysis is negative. He initially underwent a chest x-ray which showed no acute process. He then underwent a CTA of the chest which showed possible pneumonia versus pneumonitis. The ER he received bronchodilators and a dose of Decadron. He was admitted for acute exacerbation of COPD. He was continued on bronchodilators and oral prednisone. Pulmonary was consulted who felt he had a low chance of Covid 19 pneumonia but had a COPD exacerbation with possible bacterial component. They started Rocephin and Zithromax, they transitioned to prednisone to methylprednisolone IV. His Covid PCR came back negative. Patient seen and examined at bedside. He reports that his breathing is much better than yesterday and almost back to baseline. He was able to ambulate in the hallways slightly. He is complaining of bilateral lower extremity pain in his feet which feels like a gnawing or burning. He reports it is there constantly but is exacerbated by walking. Denies any nausea or vomiting. No chest pain or fevers. Objective - Vital Signs Vital signs: Vital Signs Temp 98.1 F 12/08/19 15:21 Pulse 95 12/08/19 15:36 Resp 16 12/08/19 15:21 BP 149/82 12/08/19 15:21 Pulse Ox 96 12/08/19 15:21 Intake & Output 12/07/19 12/08/19 12/08/19 18:59 06:59 18:59 Intake Total 720 Output Total 300 Balance 720 -300 Weight 128.8 kg 128.8 kg Intake: Oral 720 Output: Urine 300 Other: Voiding Method Toilet Toilet Toilet Urinal Urinal Urinal # Voids 1 - Exam General: ill appearing, no distress, appears at stated age, Obese Derm: + varicose veins and dusky appearance both legs, warm, dry Head: atraumatic, normocephalic, symmetric Eyes: EOMI, no lid lag, anicteric sclera Mouth: no lip lesion, mucus membranes moist Cardiovascular: S1S2 reg, no murmur, diminished DP and posterior tibial pulse bilateral], Lungs: Decreased bs bilateral, no rhonchi, no rales , no accessory muscle use Abdominal: soft, nontender to palpation, no guarding, no appreciable organomegaly Ext: no gross muscle atrophy, no edema, no contractures Neuro: CN II-XI grossly intact, no focal neuro deficits Psych: Alert, oriented, appropriate affect - Labs CBC & Chem 7: 12/08/19 07:02 12/08/19 07:02 Labs: Abnormal Lab Results - Last 24 Hours (Table) 12/08/19 Range/Units 07:02 Sodium 136 L (137-145) mmol/L Chloride 96 L (98-107) mmol/L Carbon Dioxide 32 H (22-30) mmol/L Glucose 118 H (74-99) mg/dL Assessment and Plan Assessment: Acute exacerbation of COPD with Acute hypoxic respiratory failure - steroids burst and taper - Bronchdilators - Wean O2 as able - pulm recs appreciated Atypical pneumonia - rocephin and zithromax - pulm hygeine Caludication - check MAGDA - outpatient evaluation - follow-up outpatient with Vascular Morbid obeisty, BMI 45.8 - structured outpatient weight loss HTN - controlled - lisinopril - lopressor - aldactone HLD - statin Chronic: Coronary artery disease GERD Chronic low back pain DVT prophylaxis: SCDs Discussed with: Patient, nursing Anticipated discharge: in AM Anticipated discharge place: home A total of 35 minutes was spent on the care of this complex patient more than 50% of the time was spent in counseling and care coordination.
[2019-12-08] MEDS: ATORVASTATIN 20 MG TAB PO SCH (21:12)
[2019-12-09] MEDS: methylPREDNISolone SOD SUCCI 125 MG/2 ML VIAL IV SCH ×3 (00:32→12:20)
[2019-12-09 06:42] LABS: Glucose,Whole Blood 150 mg/dL (75-99)
[2019-12-09] MEDS: IPRATROPIUM-ALBUTEROL 3 ML NEB INHALATION PRN ×3 (08:08→15:27)
[2019-12-09] MEDS: SYMBICORT 160-4.5 MCG INHALER INHALATION SCH (08:08)
[2019-12-09] MEDS: ASPIRIN 81 MG PO SCH (08:50)
[2019-12-09] MEDS: CLOPIDOGREL 75 MG TAB PO SCH (08:50)
[2019-12-09] MEDS: CHOLECALCIFEROL 1,000 UNIT TAB PO SCH (08:50)
[2019-12-09] MEDS: LORATADINE 10 MG TAB PO SCH (08:50)
[2019-12-09] MEDS: ENOXAPARIN 40 MG/0.4 ML SYRINGE SQ SCH (08:50)
[2019-12-09] MEDS: INSULIN ASPART (NovoLOG) 100 UNIT/ML VIAL SQ SCH ×2 (08:50→12:07)
[2019-12-09] MEDS: SPIRONOLACTONE 25 MG TAB PO SCH (08:50)
[2019-12-09] MEDS: METOPROLOL TARTRATE 25 MG TAB PO SCH (08:55)
[2019-12-09 12:01] LABS: Glucose,Whole Blood 129 mg/dL (75-99)
[2019-12-09] MEDS: AZITHROMYCIN 500 MG TAB PO SCH (12:20)
--- NOTE | 2019-12-09 13:38 | P.PN ---
Subjective Progress Note Date: 12/09/19 Principal diagnosis: Acute exacerbation of COPD This is a 74-year-old white male with history of severe COPD, maintained on oxygen which she uses mostly at night. Normally sees in the office for his underlying COPD. Patient is usually on multiple bronchodilators, and he gets his medications through the [place]. Few days ago, he ran out of his inhalers, and could not get them in time. Hence he developed worsening symptoms of shortness of breath, cough, the cough is productive with whitish phlegm, chills, but no documented fever, and he also had some night sweats. Chest x-ray on admission showed no evidence of active disease. However the CT of the chest showed some nonspecific peripheral areas of pneumonitis. Extremely minimal, and the radiologist raised the possibility of covid 19 pneumonitis. Hence the patient was admitted and this consult was initiated. PCR for ziegler virus pneumonia is pending. Patient is now on antibiotics, bronchodilators, and steroids, minimal improvement over the last 12 hours. Patient was reevaluated today on 11/26/19, patient seems to be doing much better today, breathing a lot easier, hardly any cough no wheezing no shortness of breath. He is presently on room air. His testing for ziegler virus was negative. Objective - Vital Signs Vital signs: Vital Signs Temp 97.5 F L 12/09/19 08:43 Pulse 76 12/09/19 11:58 Resp 16 12/09/19 09:00 BP 134/67 12/09/19 08:43 Pulse Ox 98 12/09/19 08:43 Intake & Output 12/08/19 12/09/19 12/09/19 18:59 06:59 18:59 Intake Total 340 Output Total 300 400 Balance -300 -60 Weight 128.8 kg Intake: Oral 340 Output: Urine 300 400 Other: Voiding Method Toilet Toilet Urinal Urinal # Voids 1 - Exam General: Revealed 74-year-old white male obese in no distress, on few liters nasal cannula. Derm: [warm], [dry] Head: [atraumatic], [normocephalic], [symmetric] Eyes: [EOMI], [no lid lag], [anicteric sclera] Mouth: [no lip lesion], [mucus membranes moist] Cardiovascular: [S1S2 reg], [no murmur], [positive posterior tibial pulse bilateral], Lungs: [Decreased breath sounds bilateral], no crackles or rhonchi or wheezes. Abdominal: Obese, [soft], [ nontender to palpation], [no guarding], [no appreciable organomegaly] Ext: [no gross muscle atrophy], [no edema], [no contractures] Neuro: [ CN II-XI grossly intact], [no focal neuro deficits] Psych: [Alert], [oriented], [appropriate affect] - Labs CBC & Chem 7: 12/08/19 07:02 12/08/19 07:02 Labs: Abnormal Lab Results - Last 24 Hours (Table) 12/09/19 12/09/19 Range/Units 06:41 11:59 POC Glucose (mg/dL) 150 H 129 H (75-99) mg/dL Microbiology - Last 24 Hours (Table) 12/07/19 15:56 Blood Culture - Preliminary Blood No Growth after 24 hours Assessment and Plan Assessment: Impression: Acute exacerbation of COPD. Acute nonspecific atypical pneumonitis. Chronic hypoxic respiratory failure. History of pulmonary embolism. Benign essential hypertensio History of coronary artery disease and previous stent placement. History of chronic low back pain. History of GERD. Recommendation: Considering the dramatic improvement, patient could be cleared to discharge home today. Patient is to resume his usual bronchodilators at home. Patient to be on prednisone 30 mg tapered over 2 weeks, Antibiotics in the form of Zithromax 500 mg daily for 5 days. Patient to follow-up with Dr. Vargas. Cleared for discharge home today. Time with Patient: Less than 30
--- NOTE | 2019-12-09 14:56 | P.DS ---
Providers Date of admission: 12/07/19 13:12 Expected date of discharge: 12/09/19 Attending physician: Jesse Lopez MD Consults: 12/07/19 12:43 Consult Physician Routine Consulting Provider: Mindy Vargas Consult Reason/Comments: copd exacerbation Do you want consulting provider notified?: Yes Primary care physician: Sherie Branch Hospital Course: Discharge Diagnosis: Acute exacerbation of COPD Acute hypoxic respiratory failure with chronic nocturnal hypoxemic respiratory failure Atypical pneumonitis Probable peripheral arterial disease Hypertension Ischemia Coronary artery disease GERD Chronic low back pain Morbid obesity with BMI 45.8 Hospital Course: Patient is a 74-year-old male for history of CAD, COPD, pulmonary embolism, severe lumbar radiculopathy, hypertension, and GERD who presented with shortness of breath associated with chills and sweats. On arrival to the ER to hypertensive with blood pressure of 175/84. Laboratory analysis showed sodium of 133, glucose 133, LDH 431, troponin was negative, BNP 155, TSH 1.1, urinalysis is negative. He initially underwent a chest x-ray which showed no acute process. He then underwent a CTA of the chest which showed possible pneumonia versus pneumonitis. The ER he received bronchodilators and a dose of Decadron. He was admitted for acute exacerbation of COPD. He was continued on bronchodilators and oral prednisone. Pulmonary was consulted who felt he had a low chance of Covid 19 pneumonia but had a COPD exacerbation with possible bacterial component. They started Rocephin and Zithromax, they transitioned to prednisone to methylprednisolone IV. His Covid PCR came back negative. He had a rapid improvement in breathing. He was able to ambulate hallways without difficulty no longer requiring oxygen. He did have complaints of claudication. He underwent an antibiotic which showed some moderate peripheral vascular di sease. He will follow-up with Dr. Villegas, Dr. Vargas, as well as Dr. Wellington Valadez. He will complete a prednisone taper and Z-Reji. Patient seen and examined at bedside. States his breathing is back to baseline, ambulating in the hallways without difficulty, no nausea, no vomiting, no chest pain. We discussed the findings with his MAGDA and he is in agreement with following up with vascular surgery. Vital signs reviewed and stable. General: non toxic, no distress, appears at stated age Derm: warm, dry Head: atraumatic, normocephalic, symmetric Eyes: EOMI, no lid lag, anicteric sclera Mouth: no lip lesion, mucus membranes moist Cardiovascular: S1S2 reg, no murmur, Lungs: CTA bilateral, no rhonchi, no rales , no accessory muscle use Abdominal: soft, nontender to palpation, no guarding, no appreciable organomegaly Ext: no gross muscle atrophy, no edema, no contractures, venous stasis changes bilaterally with large varicose veins Neuro: CN II-XI grossly intact, no focal neuro deficits Psych: Alert, oriented, appropriate affect A total of 25 minutes of time were spent preparing this complex discharge summary . Patient Condition at Discharge: Stable Plan - Discharge Summary Discharge Rx Participant: No New Discharge Prescriptions: New predniSONE [Deltasone] 0 mg PO DIRECTED #12 tab Azithromycin [Zithromax Z-pack] 0 mg PO DIRECTED #6 tab Continue Aspirin EC [Ecotrin Low Dose] 81 mg PO DAILY Budesonide/Formoterol Fumarate [Symbicort 160-4.5 Mcg Inhaler] 2 puff INHALATION RT-BID Ipratropium/Albuterol Sulfate [Combivent Respimat Inhaler] 1 puff INHALATION RT-QID lisinopriL [Zestril] 2.5 mg PO HS Metoprolol Tartrate [Lopressor] 25 mg PO BID Spironolactone 25 mg PO DAILY Clopidogrel Bisulfate [Plavix] 75 mg PO DAILY Cholecalciferol [Vitamin D3 (25 Mcg = 1000 Iu)] 2,000 unit PO DAILY Tiotropium 18 Mcg/Puff [Spiriva] 2 puff INHALATION RT-DAILY Simvastatin [Zocor] 40 mg PO HS Albuterol Nebulized [Ventolin Nebulized] 2.5 mg INHALATION RT-QID Loratadine [Claritin] 10 mg PO DAILY Albuterol Inhaler [Ventolin Hfa Inhaler] 2 puff INHALATION RT-TID PRN PRN Reason: Shortness Of Breath Discharge Medication List Aspirin EC [Ecotrin Low Dose] 81 mg PO DAILY 06/22/18 [History] Budesonide/Formoterol Fumarate [Symbicort 160-4.5 Mcg Inhaler] 2 puff INHALATION RT-BID 06/22/18 [History] Ipratropium/Albuterol Sulfate [Combivent Respimat Inhaler] 1 puff INHALATION RT-QID 06/22/18 [History] Metoprolol Tartrate [Lopressor] 25 mg PO BID 06/22/18 [History] Spironolactone 25 mg PO DAILY 06/22/18 [History] lisinopriL [Zestril] 2.5 mg PO HS 06/22/18 [History] Clopidogrel Bisulfate [Plavix] 75 mg PO DAILY 07/01/18 [History] Albuterol Inhaler [Ventolin Hfa Inhaler] 2 puff INHALATION RT-TID PRN 12/07/19 [History] Albuterol Nebulized [Ventolin Nebulized] 2.5 mg INHALATION RT-QID 12/07/19 [History] Cholecalciferol [Vitamin D3 (25 Mcg = 1000 Iu)] 2,000 unit PO DAILY 12/07/19 [History] Loratadine [Claritin] 10 mg PO DAILY 12/07/19 [History] Simvastatin [Zocor] 40 mg PO HS 12/07/19 [History] Tiotropium 18 Mcg/Puff [Spiriva] 2 puff INHALATION RT-DAILY 12/07/19 [History] Azithromycin [Zithromax Z-pack] 0 mg PO DIRECTED #6 tab 12/09/19 [Rx] predniSONE [Deltasone] 0 mg PO DIRECTED #12 tab 12/09/19 [Rx] Follow up Appointment(s)/Referral(s): Na Villegas DO [STAFF PHYSICIAN] - 1 Week Sherie Branch MD [Primary Care Provider] - 1-2 days Mindy Vargas MD [STAFF PHYSICIAN] - 1 Week Activity/Diet/Wound Care/Special Instructions: Activity: as tolerated Diet: heart healthy Discharge Disposition: HOME SELF-CARE
[2019-12-09 15:31] VITALS: RESP 18
[2019-12-09 15:32] VITALS: BP 132/64; TEMP 97.3
[2019-12-09 15:39] VITALS: PULSE 76
--- NOTE | 2019-12-14 11:00 | P.ARTDOP ---
Arterial Doppler LOWER EXTREMITY ARTERIAL DOPPLER: DATE OF SERVICE: 11/28/2019 Reason for study: Bilateral foot numbness. Doppler waveforms: Multiphasic bilaterally at all levels. Good digital waveforms. Pulse volume recording: []. Pressure gradients: Mild gradients to the ankle. Ankle-brachial indices: 0.95 on the right and cannot occlude the left. Toe brachial indices: 0.67 on the right, 0.62 on the left Impression: Possible mild bilateral fem-pop disease. Perfusion appears adequate for healing..
== END 2019-12-09 16:46 | disposition home or self-care (01) ==
LOC: EC 11:11 → 1SOBS 13:12
PROVIDERS: ADMIT Internal Medicine; ATTEND Internal Medicine
DX: J44.1 Chronic obstructive pulmonary disease with (acute) exacerbation (principal); J96.21 Acute and chronic respiratory failure with hypoxia; J18.9 Pneumonia, unspecified organism; I10 Essential (primary) hypertension; I25.10 Atherosclerotic heart disease of native coronary artery without angina pectoris; G89.29 Other chronic pain; M54.5 Low back pain; F10.10 Alcohol abuse, uncomplicated; E66.01 Morbid (severe) obesity due to excess calories; Z68.42 Body mass index [BMI] 45.0-49.9, adult; Z20.818 Contact with and (suspected) exposure to other bacterial communicable diseases; Z86.711 Personal history of pulmonary embolism; M54.16 Radiculopathy, lumbar region; K21.9 Gastro-esophageal reflux disease without esophagitis; I73.9 Peripheral vascular disease, unspecified; I25.2 Old myocardial infarction; Z86.19 Personal history of other infectious and parasitic diseases; Z95.5 Presence of coronary angioplasty implant and graft; Z98.890 Other specified postprocedural states; Z87.891 Personal history of nicotine dependence; F40.240 Claustrophobia; Z80.3 Family history of malignant neoplasm of breast; Z82.49 Family history of ischemic heart disease and other diseases of the circulatory system; N28.9 Disorder of kidney and ureter, unspecified; M54.30 Sciatica, unspecified side; Z86.010 Personal history of colon polyps; Z87.19 Personal history of other diseases of the digestive system; Z87.442 Personal history of urinary calculi; Z88.1 Allergy status to other antibiotic agents; Z99.81 Dependence on supplemental oxygen; Z79.82 Long term (current) use of aspirin; Z79.51 Long term (current) use of inhaled steroids; Z79.02 Long term (current) use of antithrombotics/antiplatelets; Z79.899 Other long term (current) drug therapy
CPT/HCPCS: 96365; 96366; 96372 ×2; 96375 ×2; 96376 ×2; 99285; 36415; 94640 ×6; 93005; 97162; 97165; 85379 ×2; 83880; 80048 ×2; 80076; 84443; 82728; 82553; 83615 ×2; 83735; 84100; 84484; 85025 ×2; 85610; 85730; 86140; 81003; 87040; 84145; 71046; 93922; 71275; G0378 ×3; U0003; J2060; J1100; J2930 ×2; J1650 ×2; J0696 ×2; J7512; Q9967

== ENCOUNTER 2024-02-26 07:52 | Emergency (ER) | payer MEDICARE ==
[2024-02-26 08:00] VITALS: TEMP 98.4
[2024-02-26] MEDS ORDERED: RX INFO: IV CONTRAST WAS GIVEN 1 EACH MISC MISCELLANE PRN (08:06)
--- NOTE | 2024-02-26 08:13 | ED ---
Extremity Problem HPI - General Chief complaint: Extremity Problem,Nontraumatic Stated complaint: back pain Time Seen by Provider: 02/26/24 07:58 Source: patient, RN notes reviewed Mode of arrival: ambulatory Limitations: no limitations - History of Present Illness Initial comments: This is a 78-year-old male who presents to the emergency department for right leg pain. Patient states that he had noticed problems with his feet being numb and followed up with vascular surgery. He was told that he has a plaque in his right leg that needs to be removed. Last night states that he started to develop severe pain in the right thigh that seems to radiate up into the back. Denies any injuries. Also denies ever having pain like this in the past. Not t aking anything for management of his pain. Denies any loss of bowel/bladder control or saddle anesthesia. MD Complaint: extremity pain - Related Data Home Medications Medication Instructions Recorded Confirmed Aspirin EC [Ecotrin Low Dose] 81 mg PO DAILY 06/22/18 12/07/19 Budesonide/Formoterol Fumarate 2 puff INHALATION RT-BID 06/22/18 12/07/19 [Symbicort 160-4.5 Mcg Inhaler] Ipratropium/Albuterol Sulfate 1 puff INHALATION RT-QID 06/22/18 12/07/19 [Combivent Respimat Inhaler] Metoprolol Tartrate [Lopressor] 25 mg PO BID 06/22/18 12/07/19 Spironolactone 25 mg PO DAILY 06/22/18 12/07/19 lisinopriL [Zestril] 2.5 mg PO HS 06/22/18 12/07/19 Clopidogrel Bisulfate [Plavix] 75 mg PO DAILY 07/01/18 12/07/19 Albuterol Inhaler [Ventolin Hfa 2 puff INHALATION RT-TID PRN 12/07/19 12/07/19 Inhaler] Albuterol Nebulized [Ventolin 2.5 mg INHALATION RT-QID 12/07/19 12/07/19 Nebulized] Cholecalciferol [Vitamin D3 (25 2,000 unit PO DAILY 12/07/19 12/07/19 Mcg = 1000 Iu)] Loratadine [Claritin] 10 mg PO DAILY 12/07/19 12/07/19 Simvastatin [Zocor] 40 mg PO HS 12/07/19 12/07/19 Tiotropium 18 Mcg/Puff [Spiriva] 2 puff INHALATION RT-DAILY 12/07/19 12/07/19 Previous Rx's Medication Instructions Recorded Azithromycin [Zithromax Z-pack (6 0 mg PO DIRECTED #6 tab 12/09/19 tabs)] predniSONE [Deltasone] 0 mg PO DIRECTED #12 tab 12/09/19 HYDROcodone/APAP 7.5-325MG [[place] 1 tab PO Q4H PRN 3 Days #18 tab 02/26/24 7.5-325] Lidocaine 5% Patch [Lidoderm 5% 1 patch TOPICAL DAILY PRN #30 patch 02/26/24 Patch] Meloxicam [Mobic] 15 mg PO DAILY PRN #30 tab 02/26/24 methocarbamoL [Robaxin-750] 1,500 mg PO TID PRN #30 tab 02/26/24 Allergies Allergy/AdvReac Type Severity Reaction Status Date / Time levofloxacin [From Levaquin] AdvReac TENDON PAIN Verified 02/26/24 08:00 Review of Systems ROS Statement: Those systems with pertinent positive or pertinent negative responses have been documented in the HPI. ROS Other: All systems not noted in ROS Statement are negative. Past Medical History Past Medical History: Coronary Artery Disease (CAD), COPD, GERD/Reflux, Hyperlipidemia, Hypertension, Myocardial Infarction (CO), Pulmonary Embolus (PE), Renal Disease Additional Past Medical History / Comment(s): Home oxygen prn and pt states he usually wears at night at 2.5 liters, bilateral PEs in 2003, ETOH abuse-pt states he has never had withdrawal symptoms, chronic low back pa in/sciatica/spurs/disc disease much improved after back injections, past urinary retention, diverticulitis/benign colon polyps removed, nephrolithiasis-passed stones on his own, shingelles 16 years ago-R shoulder. Last Myocardial Infarction Date:: 2010 History of Any Multi-Drug Resistant Organisms: None Reported Past Surgical History: Heart Catheterization With Stent Additional Past Surgical History / Comment(s): Back injections for pain, piece of metal removed from rt eye, EGD, colonoscopy Past Anesthesia/Blood Transfusion Reactions: No Reported Reaction Additional Past Anesthesia/Blood Transfusion Reaction / Comment(s): claustrophobia Date of Last Stent Placement:: 2010 Past Psychological History: Anxiety, Depression, PTSD Smoking Status: Former smoker Past Alcohol Use History: None Reported Past Drug Use History: None Reported - Past Family History Mother Family Medical History: Cancer Additional Family Medical History / Comment(s): from breast cancer at age 53 Father Family Medical History: Coronary Artery Disease (CAD), Myocardial Infarction (CO) Additional Family Medical History / Comment(s): 4 mi's/CABG. at at age 72 General Exam Limitations: no limitations General appearance: alert, in distress Head exam: Present: atraumatic, normocephalic, normal inspection Respiratory exam: Present: normal lung sounds bilaterally. Absent: respiratory distress, wheezes, rales, rhonchi, stridor Cardiovascular Exam: Present: regular rate, normal rhythm, normal heart sounds. Absent: systolic murmur, diastolic murmur, rubs, gallop, clicks Extremities exam: Present: other (Tenderness to palpation over the right medial thigh and right lower back. No calf tenderness. Feet are cool, however pulses are obtained with Doppler.) Neurological exam: Present: alert, oriented X3, CN II-XII intact Psychiatric exam: Present: normal affect, normal mood Skin exam: Present: warm, dry, intact, normal color. Absent: rash Course Vital Signs 02/26/24 02/26/24 02/26/24 07:57 09:44 11:00 Temperature 98.4 F Pulse Rate 89 81 Respiratory 20 17 Rate Blood Pressure 121/68 114/67 115/60 O2 Sat by Pulse 99 97 Oximetry 02/26/24 02/26/24 02/26/24 12:40 12:49 15:06 Temperature Pulse Rate 90 90 85 Respiratory 17 Rate Blood Pressure 181/91 O2 Sat by Pulse 96 Oximetry Medical Decision Making - Medical Decision Making This is a 78-year-old male who presents to the emergency department for right leg pain. Was pt. sent in by a medical professional or institution? @ -No Did you speak to anyone other than the patient for history? @ -No Did you review nursing and triage notes? @ -Yes, and I agree, it is accurate with regards to the patient's symptoms. Were old charts reviewed? @ -No Differential Diagnosis? @ -Leg fracture, leg sprain, DVT, PVD, arterial insufficiency, iliac artery aneurysm, cellulitis, compartment syndrome, tendinopathy, nerve entrapment, piriformis syndrome, osteoarthritis, rhabdomyolysis, myositis, cramping from an electrolyte imbalance, this is not meant to be an all inclusive list. EKG interpreted by me (3pts min.)? @ -Not obtained X-rays interpreted by me (1pt min.)? @ -Not obtained CT interpreted by me (1pt min.)? @ -CTA of the right lower extremity obtained. My interpretation identifies a large amount of atherosclerotic plaques and several areas of stenosis. U/S interpreted by me (1pt. min.)? @ -Duplex ultrasound of the right lower obtained. Ny interpretation identifies no evidence of a DVT. What testing was considered but not performed? (CT, X-rays, U/S, labs)? Why? @ -None What meds were considered but not given? Why? @ -None Did you discuss the management of the patient with other professionals? @ -Yes, Dr. Villegas, who advised that Martina will come down and evaluate the patient. Martina advised that because this is chronic, from their standpoint he can be discharged home to follow-up outpatient and he already has appointments scheduled. Did you reconcile home meds? @ -No Was smoking cessation discussed for >3mins.? @ -No Was critical care preformed (if so, how long)? @ -No Were there social determinants of health that impacted care today? How? (Homelessness, low income, unemployed, alcoholism, drug addiction, transportation, low edu. Level, literacy, decrease access to med. care, group home, rehab)? @ -No Was there de-escalation of care discussed even if they declined? (Discuss DNR or withdrawal of care, Hospice)? @ -No What co-morbidities impacted this encounter? (DM, HTN, Smoking, COPD, CAD, Cancer, CVA, Hep., AIDS, mental health diagnosis, sleep apnea, morbid obesity)? @ -CAD, vascular disorder Was patient admitted / discharged? @ -Discharged. Lab work demonstrates mild leukocytosis of 10.8 and was otherwise unremarkable. CTA of the right lower extremity demonstrates atherosclerotic changes with several areas of severe stenosis. Duplex ultrasound of the right lower extremity reveals no evidence of a DVT. His feet were cool, however pulses could be obtained with a Doppler. This is essentially a chronic and ongoing issue for the patient. He does not have acute limb ischemia that would necessitate immediate surgical intervention. Patient concerned about his pain level and being unable to function at home. I did speak with admitting team regarding admission for pain control. They advised speaking with vascular surgery to see if this would be of any benefit or if anything can even be done on an inpatient basis for him. Vascular surgery came to evaluate the patient and advised outpatient follow-up. Discussed with the patient that I can send in pain medication for him. It is also possible given the acute onset of the back pain he is having another problem like sciatica going on. In addition to the [place] he was given a prescription for Robaxin and Mobic to help with his back pain and any additional musculoskeletal component. Lidocaine patches prescribed as well. Patient discharged home in stable condition. Case discussed with ED attending Dr. Roberts. Return precautions reviewed in depth, the patient is instructed to return to the emergency department with any new, worsening, or concerning symptoms. Patient verbalized understanding. Undiagnosed new problem with uncertain prognosis? @ -None Drug Therapy requiring intensive monitoring for toxicity (Heparin, Nitro, Insulin, Cardizem)? @ -None Were any procedures done? @ -None Diagnosis/symptom? @ -Back pain, right leg pain Acute, or Chronic, or Acute on Chronic? @ -Acute Uncomplicated (without systemic symptoms) or Complicated (systemic symptoms)? @ -Uncomplicated Side effects of treatment? @ -None Exacerbation, Progression, or Severe Exacerbation] @ -Not applicable Poses a threat to life or bodily function? @ -The pain interferes with his function to some extent - Lab Data Result diagrams: 02/26/24 08:06 02/26/24 08:06 Lab Results 02/26/24 02/26/24 02/26/24 Range/Units 08:06 08:06 08:06 WBC 10.8 H (3.8-10.6) k/uL RBC 4.98 (4.30-5.90) m/uL Hgb 14.0 (13.0-17.5) gm/dL Hct 42.8 (39.0-53.0) % MCV 86.0 (80.0-100.0) fL MCH 28.2 (25.0-35.0) pg MCHC 32.8 (31.0-37.0) g/dL RDW 13.9 (11.5-15.5) % Plt Count 261 (150-450) k/uL MPV 6.9 Neutrophils % 74 % Lymphocytes % 17 % Monocytes % 6 % Eosinophils % 1 % Basophils % 0 % Neutrophils # 8.0 H (1.3-7.7) k/uL Lymphocytes # 1.9 (1.0-4.8) k/uL Monocytes # 0.6 (0-1.0) k/uL Eosinophils # 0.1 (0-0.7) k/uL Basophils # 0.0 (0-0.2) k/uL PT 10.7 (10.0-12.5) sec INR 1.0 (<1.2) APTT 22.8 (22.0-30.0) sec Sodium 136 L (137-145) mmol/L Potassium 4.3 (3.5-5.1) mmol/L Chloride 98 (98-107) mmol/L Carbon Dioxide 32 H (22-30) mmol/L Anion Gap 6 mmol/L BUN 12 (9-20) mg/dL Creatinine 0.95 (0.66-1.25) mg/dL Est GFR (CKD-EPI)AfAm >90 (>60 ml/min/1.73 sqM) Est GFR (CKD-EPI)NonAf 78 (>60 ml/min/1.73 sqM) Glucose 125 H (74-99) mg/dL Plasma Lactic Acid Sandor (0.7-2.0) mmol/L Calcium 9.1 (8.4-10.2) mg/dL Magnesium 1.6 (1.6-2.3) mg/dL Total Bilirubin 0.7 (0.2-1.3) mg/dL AST 20 (17-59) U/L ALT 18 (4-49) U/L Alkaline Phosphatase 59 (38-126) U/L Total Protein 6.9 (6.3-8.2) g/dL Albumin 4.0 (3.5-5.0) g/dL 02/26/24 Range/Units 08:06 WBC (3.8-10.6) k/uL RBC (4.30-5.90) m/uL Hgb (13.0-17.5) gm/dL Hct (39.0-53.0) % MCV (80.0-100.0) fL MCH (25.0-35.0) pg MCHC (31.0-37.0) g/dL RDW (11.5-15.5) % Plt Count (150-450) k/uL MPV Neutrophils % % Lymphocytes % % Monocytes % % Eosinophils % % Basophils % % Neutrophils # (1.3-7.7) k/uL Lymphocytes # (1.0-4.8) k/uL Monocytes # (0-1.0) k/uL Eosinophils # (0-0.7) k/uL Basophils # (0-0.2) k/uL PT (10.0-12.5) sec INR (<1.2) APTT (22.0-30.0) sec Sodium (137-145) mmol/L Potassium (3.5-5.1) mmol/L Chloride (98-107) mmol/L Carbon Dioxide (22-30) mmol/L Anion Gap mmol/L BUN (9-20) mg/dL Creatinine (0.66-1.25) mg/dL Est GFR (CKD-EPI)AfAm (>60 ml/min/1.73 sqM) Est GFR (CKD-EPI)NonAf (>60 ml/min/1.73 sqM) Glucose (74-99) mg/dL Plasma Lactic Acid Sandor 1.7 (0.7-2.0) mmol/L Calcium (8.4-10.2) mg/dL Magnesium (1.6-2.3) mg/dL Total Bilirubin (0.2-1.3) mg/dL AST (17-59) U/L ALT (4-49) U/L Alkaline Phosphatase (38-126) U/L Total Protein (6.3-8.2) g/dL Albumin (3.5-5.0) g/dL - Radiology Data Radiology results: report reviewed, image reviewed Disposition Clinical Impression: Atherosclerosis of right lower extremity, Right-sided back pain Disposition: HOME SELF-CARE Instructions (If sedation given, give patient instructions): Back Pain (ED) Additional Instructions: Return to the emergency department with any new, worsening, or concerning symptoms. Begin taking the Mobic once daily. Take the Robaxin as 1 to 2 tablets up to 3-4 times daily. You can also apply the lidocaine patches daily. Take the [place] sparingly when your pain is the most severe. Follow-up with hi scular surgery and with your primary care provider. Prescriptions: Lidocaine 5% Patch [Lidoderm 5% Patch] 1 patch TOPICAL DAILY PRN #30 patch PRN Reason: Pain Meloxicam [Mobic] 15 mg PO DAILY PRN #30 tab PRN Reason: Pain HYDROcodone/APAP 7.5-325MG [[place] 7.5-325] 1 tab PO Q4H PRN 3 Days #18 tab PRN Reason: Pain methocarbamoL [Robaxin-750] 1,500 mg PO TID PRN #30 tab PRN Reason: Pain Is patient prescribed a controlled substance at d/c from ED?: Yes When asked, does pt state using other controlled substances?: No If prescribed controlled substance>3 days was MAPS reviewed?: Prescribed <3 Days Referrals: [facility],Clinic [Primary Care Provider] - 1-2 days Time of Disposition: 14:52
[2024-02-26] MEDS: HYDROmorphone 1 MG/ML 1 ML SYRINGE IVP STA ×2 (08:25→10:11)
[2024-02-26] MEDS: KETOROLAC 15 MG/ML 1 ML VIAL IVP STA (08:25)
[2024-02-26 08:44] LABS: Basophils % (A) 0 %; Eosinophils # (A) 0.1 k/uL (0-0.7); Eosinophils % (A) 1 %; HCT 42.8 % (39.0-53.0); Lymphocytes # (A) 1.9 k/uL (1.0-4.8); Lymphocytes % (A) 17 %; MCH 28.2 pg (25.0-35.0); MCHC 32.8 g/dL (31.0-37.0); Mean Platelet Volume 6.9; Monocytes # (A) 0.6 k/uL (0-1.0); Monocytes % (A) 6 %; Neutrophils % (A) 74 %; Platelet Count 261 k/uL (150-450); RBC 4.98 m/uL (4.30-5.90); RDW 13.9 % (11.5-15.5); WBC 10.8 k/uL (3.8-10.6)
[2024-02-26 08:53] LABS: ALT 18 U/L (4-49); AST 20 U/L (17-59); African American GFR (CKD) >90 (>60 ml/min/1.73 sqM); Alkaline Phosphatase 59 U/L (38-126); Anion Gap 6 mmol/L; Blood Urea Nitrogen 12 mg/dL (9-20); Calcium 9.1 mg/dL (8.4-10.2); Carbon Dioxide 32 mmol/L (22-30); Chloride 98 mmol/L (98-107); Glucose 125 mg/dL (74-99); Magnesium 1.6 mg/dL (1.6-2.3); Non-African American GFR(CKD) 78 (>60 ml/min/1.73 sqM); Potassium 4.3 mmol/L (3.5-5.1); Sodium 136 mmol/L (137-145); Total Bilirubin 0.7 mg/dL (0.2-1.3); Total Protein 6.9 g/dL (6.3-8.2)
[2024-02-26 08:59] LABS: Partial Thromboplastin Time 22.8 sec (22.0-30.0); Prothrombin Time 10.7 sec (10.0-12.5)
[2024-02-26 09:45] VITALS: RESP 17
[2024-02-26] MEDS: LIDOCAINE 4% PATCH TOPICAL ONE (10:11)
[2024-02-26] MEDS: ORPHENADRINE 30 MG/ML 2 ML VIAL IVP STA (10:11)
--- NOTE | 2024-02-26 10:46 | CT ---
EXAMINATION TYPE: CT angio lower extremity RT DATE OF EXAM: 02/26/2024 9:37 AM COMPARISON: Abdomen and pelvis 06/22/2018 CLINICAL INDICATION: Male, 78 years old with history of Leg pain, hx of occlusion, Rt lower leg pain, radiating around back, history of occlusion, TECHNIQUE: CT of the right lower extremity (right hip, right thigh, knee, leg, ankle, and foot) perfo rmed with IV Contrast, patient injected with 100 mL of Isovue 370. Coronal/sagittal reconstructions p erformed. 3-D reconstructions generated on a dedicated independent workstation. CT DLP: 1357.8 mGycm, Automated exposure control for dose reduction was used. FINDINGS: No abnormal fluid collection in the pelvis or pelvic lymphadenopathy. Sigmoid diverticulosis. There is moderate atherosclerotic calcification throughout the visualized lower abdominal aorta, bila teral iliac arteries, and throughout the right lower extremity. Segmental variable moderate stenoses throughout the right external iliac artery though with more matteo re focal stenosis at the midportion, axial image 67. Moderate atherosclerotic calcifications common femoral artery and moderate stenosis distally at the t akeoff of the profunda femoral artery. Multiple focal moderate stenoses are present throughout the superficial femoral artery. Segmental mild to moderate stenoses throughout the popliteal artery. Normal takeoff of the anterior tibial artery. Possible severe atherosclerotic stenosis proximal anterior tibial artery. Scattered mild atherosclerotic changes throughout the remainder of the trifurcation vessels. There is satisfactory runoff via the posterior tibial artery. Diminutive peroneal artery is seen to the distal leg level. Anterior tibial artery is seen to the distal leg. IMPRESSION: 1. MODERATE ATHEROSCLEROTIC STENOSES THROUGHOUT THE RIGHT LOWER EXTREMITY. 2. MORE SEVERE FOCAL STENOSIS MID RIGHT EXTERNAL ILIAC ARTERY. 3. MORE SEVERE FOCAL STENOSIS PROXIMAL ANTERIOR TIBIAL ARTERY. 4. SATISFACTORY RUNOFF VIA THE POSTERIOR TIBIAL ARTERY. 5. NEITHER THE ANTERIOR TIBIAL ARTERY OR THE PERONEAL ARTERY ARE SEEN BEYOND THE DISTAL LEG LEVEL. [facility], , 02/26/2024 10:43 AM
--- NOTE | 2024-02-26 11:46 | US ---
EXAMINATION TYPE: US venous doppler duplex LE RT DATE OF EXAM: 02/26/2024 10:55 AM COMPARISON: NONE CLINICAL INDICATION: Male, 78 years old with history of Leg pain; Pain, Pain, Swelling TECHNIQUE: The lower extremity deep venous system is examined utilizing real time linear array sonog brandon with graded compression, color doppler sonography, and spectral doppler. SIDE PERFORMED: Right FINDINGS: VESSELS IMAGED: Common Femoral Vein Deep Femoral Vein Greater Saphenous Vein * Femoral Vein Popliteal Vein Small Saphenous Vein * Proximal Calf Veins (* superficial vessels) The deep venous system of the right lower extremity from the common femoral vein to the proximal calf veins is patent and compressible with augmentable flow with normal waveforms. IMPRESSION: No evidence of right lower extremity DVT from the common femoral vein to the proximal calf veins [facility], Workstation: [id number] 02/26/2024 11:44 AM
[2024-02-26] MEDS: IPRATROPIUM-ALBUTEROL 3 ML NEB INHALATION STA (12:38)
--- NOTE | 2024-02-26 14:45 | P.GSCN ---
History of Present Illness Consult date: 02/26/24 Reason for Consult: Lower extremity numbness Requesting physician: Keysha Corea History of present illness: This is a pleasant 78-year-old male who presented to the emergency department with complaints of lower back pain that started yesterday and bilateral lower extremity numbness and tingling. He states he has had the numbness and tingling for a week or 2 of his lower extremities. Apparently last week he was seen at [facility] for pneumonia and had complained of lower extremity numbness and tingling in his legs. He was transferred to [facility] however he is unsure why. He was seen by vascular surgery at that time. Patient states he was diagnosed as a new diabetic from [facility]. He states he does not follow regularly with a PCP [facility] Nair had seen patient and cleared him for discharge with follow-up in the office. Patient had an appointment yesterday with Dr. Nair and canceled his appointment because he states he had back pain and was not feeling well. Past medical history includes coronary artery disease, COPD, [place], former smoker, former alcohol abuse, history of pulmonary embolism and peripheral arterial disease. Vascular surgery was consulted to see patient regarding lower extremity numbness and tingling and reported right lower extremity pain. They did a CTA of the right lower extremity with findings of arthrosclerotic disease and focal stenosis. Patient states he has full range of motion of his lower extremities. He is unclear on what is causing his back pain, denies any recent known injuries. Review of Systems A 14 point review systems was completed all pertinent positives and negatives as stated in the HPI. Past Medical History Past Medical History: Coronary Artery Disease (CAD), COPD, GERD/Reflux, Hyperlipidemia, Hypertension, Myocardial Infarction ([place]), Pulmonary Embolus (PE), Renal Disease Additional Past Medical History / Comment(s): Home oxygen prn and pt states he usually wears at night at 2.5 liters, bilateral PEs in 2003, ETOH abuse-pt states he has never had withdrawal symptoms, chronic low back pain/sciatica/spurs/disc disease much improved after back injections, past urinary retention, diverticulitis/benign colon polyps removed, nephrolithiasis- passed stones on his own, shingelles 16 years ago-R shoulder. Last Myocardial Infarction Date:: 2010 History of Any Multi-Drug Resistant Organisms: None Reported Past Surgical History: Heart Catheterization With Stent Additional Past Surgical History / Comment(s): Back injections for pain, piece of metal removed from rt eye, EGD, colonoscopy Past Anesthesia/Blood Transfusion Reactions: No Reported Reaction Additional Past Anesthesia/Blood Transfusion Reaction / Comm: claustrophobia Date of Last Stent Placement:: 2010 Past Psychological History: Anxiety, Depression, PTSD Smoking Status: Former smoker Past Alcohol Use History: None Reported Past Drug Use History: None Reported - Past Family History Mother Family Medical History: Cancer Additional Family Medical History / Comment(s): from breast cancer at age 53 Father Family Medical History: Coronary Artery Disease (CAD), Myocardial Infarction ([place]) Additional Family Medical History / Comment(s): 4 mi's/CABG. at at age 72 Medications and Allergies Home Medications Medication Instructions Recorded Confirmed Type Aspirin EC [Ecotrin Low Dose] 81 mg PO DAILY 06/22/18 12/07/19 History Budesonide/Formoterol Fumarate 2 puff INHALATION RT-BID 06/22/18 12/07/19 History [Symbicort 160-4.5 Mcg Inhaler] Ipratropium/Albuterol Sulfate 1 puff INHALATION RT-QID 06/22/18 12/07/19 History [Combivent Respimat Inhaler] Metoprolol Tartrate [Lopressor] 25 mg PO BID 06/22/18 12/07/19 History Spironolactone 25 mg PO DAILY 06/22/18 12/07/19 History lisinopriL [Zestril] 2.5 mg PO HS 06/22/18 12/07/19 History Clopidogrel Bisulfate [Plavix] 75 mg PO DAILY 07/01/18 12/07/19 History Albuterol Inhaler [Ventolin Hfa 2 puff INHALATION RT-TID PRN 12/07/19 12/07/19 History Inhaler] Albuterol Nebulized [Ventolin 2.5 mg INHALATION RT-QID 12/07/19 12/07/19 History Nebulized] Cholecalciferol [Vitamin D3 (25 2,000 unit PO DAILY 12/07/19 12/07/19 History Mcg = 1000 Iu)] Loratadine [Claritin] 10 mg PO DAILY 12/07/19 12/07/19 History Simvastatin [Zocor] 40 mg PO HS 12/07/19 12/07/19 History Tiotropium 18 Mcg/Puff [Spiriva] 2 puff INHALATION RT-DAILY 12/07/19 12/07/19 History Azithromycin [Zithromax Z-pack (6 0 mg PO DIRECTED #6 tab 12/09/19 Rx tabs)] predniSONE [Deltasone] 0 mg PO DIRECTED #12 tab 12/09/19 Rx Allergies Allergy/AdvReac Type Severity Reaction Status Date / Time levofloxacin [From Levaquin] AdvReac TENDON PAIN Verified 02/26/24 08:00 Surgical - Exam Vital Signs Temp Pulse Resp BP Pulse Ox 98.4 F 89 20 121/68 99 02/26/24 07:57 02/26/24 07:57 02/26/24 07:57 02/26/24 07:57 02/26/24 07:57 General appearance: The patient is alert, oriented, appears in no acute distress. HET: Head is normocephalic and atraumatic. Pupils are equal and reactive. Neck: Supple. Heart: Regular. Lungs: Equal expansion, normal respiratory effort. Abdomen: Soft, nontender, nondistended. Extremities: Bilateral lower extremities with varicosities. Palpable femoral pulses, feet are cool to the touch bilaterally, sensorimotor intact. PT and DP signals present. Neurological: No focal deficits. Strength and sensation are grossly intact. Results - Labs 02/26/24 08:06 02/26/24 08:06 Abnormal Lab Results - Last 24 Hours (Table) 02/26/24 02/26/24 Range/Units 08:06 08:06 WBC 10.8 H (3.8-10.6) k/uL Neutrophils # 8.0 H (1.3-7.7) k/uL Sodium 136 L (137-145) mmol/L Carbon Dioxide 32 H (22-30) mmol/L Glucose 125 H (74-99) mg/dL Diabetes panel 02/26/24 Range/Units 08:06 Sodium 136 L (137-145) mmol/L Potassium 4.3 (3.5-5.1) mmol/L Chloride 98 (98-107) mmol/L Carbon Dioxide 32 H (22-30) mmol/L BUN 12 (9-20) mg/dL Creatinine 0.95 (0.66-1.25) mg/dL Glucose 125 H (74-99) mg/dL Calcium 9.1 (8.4-10.2) mg/dL AST 20 (17-59) U/L ALT 18 (4-49) U/L Alkaline Phosphatase 59 (38-126) U/L Total Protein 6.9 (6.3-8.2) g/dL Albumin 4.0 (3.5-5.0) g/dL Calcium panel 02/26/24 Range/Units 08:06 Calcium 9.1 (8.4-10.2) mg/dL Albumin 4.0 (3.5-5.0) g/dL Pituitary panel 02/26/24 Range/Units 08:06 Sodium 136 L (137-145) mmol/L Potassium 4.3 (3.5-5.1) mmol/L Chloride 98 (98-107) mmol/L Carbon Dioxide 32 H (22-30) mmol/L BUN 12 (9-20) mg/dL Creatinine 0.95 (0.66-1.25) mg/dL Glucose 125 H (74-99) mg/dL Calcium 9.1 (8.4-10.2) mg/dL Adrenal panel 02/26/24 Range/Units 08:06 Sodium 136 L (137-145) mmol/L Potassium 4.3 (3.5-5.1) mmol/L Chloride 98 (98-107) mmol/L Carbon Dioxide 32 H (22-30) mmol/L BUN 12 (9-20) mg/dL Creatinine 0.95 (0.66-1.25) mg/dL Glucose 125 H (74-99) mg/dL Calcium 9.1 (8.4-10.2) mg/dL Total Bilirubin 0.7 (0.2-1.3) mg/dL AST 20 (17-59) U/L ALT 18 (4-49) U/L Alkaline Phosphatase 59 (38-126) U/L Total Protein 6.9 (6.3-8.2) g/dL Albumin 4.0 (3.5-5.0) g/dL - Imaging Comments: CTA right lower extremity reports Moderate arthrosclerotic stenosis throughout the right lower extremity. More severe focal stenosis mid right external iliac artery. More severe focal stenosis proximal anterior tibial artery. Satisfactory runoff via the posterior tibial artery. Neither anterior tibial artery or peroneal artery seen beyond the distal leg level. Venous duplex negative for DVT Assessment and Plan Assessment: 1. Chronic lower extremity peripheral arterial disease 2. Peripheral neuropathy 3. Low back pain Plan: 1. There is no indication for any emergent or urgent surgical intervention. Patient to follow-up as scheduled next week with Dr. Nair on March 03, 2024. 2. Can consider gabapentin for peripheral neuropathy 3. Back pain deferred to medical management 4. Recommend patient follow-up with his primary care physician for reported new onset diabetes mellitus Thank you for this consultation, patient is cleared for discharge from vascular surgery. The impression and plan of care has been dictated as directed. Dr. Villegas I performed a history and examination of this patient, discussed the same with the dictator. I agree with the dictator's note ,documented as a scribe. Any additional findings or plans will be noted.
[2024-02-26 15:08] VITALS: BP 181/91; PULSE 85
== END 2024-02-26 15:17 | disposition home or self-care (01) ==
LOC: EC 07:52
DX: E11.51 Type 2 diabetes mellitus with diabetic peripheral angiopathy without gangrene (principal); I70.201 Unspecified atherosclerosis of native arteries of extremities, right leg; M54.50 Low back pain, unspecified; I25.10 Atherosclerotic heart disease of native coronary artery without angina pectoris; Z87.891 Personal history of nicotine dependence; Z88.1 Allergy status to other antibiotic agents
CPT/HCPCS: 36415 ×2; 94640; 80053; 83605; 83735; 85025; 85610; 85730; 93971; 73706; 99284; 96374; 96375 ×2; 96376; J2360; J1171; J1885; Q9967

== ENCOUNTER 2024-03-17 10:59 | Observation (INO) | payer MEDICARE ==
[2024-03-17 11:42] LABS: Basophils % (A) 0 %; Eosinophils # (A) 0.1 k/uL (0-0.7); Eosinophils % (A) 1 %; HCT 42.1 % (39.0-53.0); HGB 13.6 gm/dL (13.0-17.5); Lymphocytes # (A) 1.5 k/uL (1.0-4.8); Lymphocytes % (A) 13 %; MCH 27.8 pg (25.0-35.0); MCHC 32.2 g/dL (31.0-37.0); MCV 86.3 fL (80.0-100.0); Mean Platelet Volume 7.3; Monocytes # (A) 0.8 k/uL (0-1.0); Monocytes % (A) 6 %; Neutrophils # (A) 9.2 k/uL (1.3-7.7); Neutrophils % (A) 78 %; Platelet Count 254 k/uL (150-450); RBC 4.88 m/uL (4.30-5.90); RDW 14.4 % (11.5-15.5); WBC 11.8 k/uL (3.8-10.6)
[2024-03-17 11:51] LABS: ALT 15 U/L (4-49); African American GFR (CKD) >90 (>60 ml/min/1.73 sqM); Anion Gap 6 mmol/L; Blood Urea Nitrogen 12 mg/dL (9-20); Carbon Dioxide 29 mmol/L (22-30); Chloride 99 mmol/L (98-107); Glucose 119 mg/dL (74-99); Non-African American GFR(CKD) 84 (>60 ml/min/1.73 sqM); Sodium 134 mmol/L (137-145); Total Bilirubin 1.1 mg/dL (0.2-1.3); Total Protein 6.7 g/dL (6.3-8.2)
--- NOTE | 2024-03-17 12:14 | ED ---
General Adult HPI - General Chief complaint: Shortness of Breath Stated complaint: DAVID,Fede feet numbness Time Seen by Provider: 03/17/24 12:05 Source: patient, RN notes reviewed Mode of arrival: ambulatory Limitations: no limitations - History of Present Illness Initial comments: 78-year-old male presents to the emergency department for evaluation of sh ortness of breath. Patient reports that symptoms started last night. He notes it is worse when he tries to walk. Denies chest pain. Patient reports a history of COPD. He has been taking his medications. He denies any blood thinner use. - Related Data Home Medications Medication Instructions Recorded Confirmed Aspirin EC [Ecotrin Low Dose] 81 mg PO DAILY 06/22/18 03/17/24 Budesonide/Formoterol Fumarate 2 puff INHALATION RT-BID 06/22/18 03/17/24 [Symbicort 160-4.5 Mcg Inhaler] Ipratropium/Albuterol Sulfate 1 puff INHALATION RT-QID 06/22/18 03/17/24 [Combivent Respimat Inhaler] Metoprolol Tartrate [Lopressor] 25 mg PO BID 06/22/18 03/17/24 Spironolactone 25 mg PO DAILY 06/22/18 03/17/24 lisinopriL [Zestril] 2.5 mg PO HS 06/22/18 03/17/24 Clopidogrel Bisulfate [Plavix] 75 mg PO DAILY 07/01/18 03/17/24 Albuterol Inhaler [Ventolin Hfa 2 puff INHALATION RT-TID PRN 12/07/19 03/17/24 Inhaler] Albuterol Nebulized [Ventolin 2.5 mg INHALATION RT-QID 12/07/19 03/17/24 Nebulized] Loratadine [Claritin] 10 mg PO DAILY 12/07/19 03/17/24 Simvastatin [Zocor] 40 mg PO HS 12/07/19 03/17/24 Tiotropium 18 Mcg/Puff [Spiriva] 2 puff INHALATION RT-DAILY 12/07/19 03/17/24 Cholecalciferol [Vitamin D3 (25 25 mcg PO BID 03/17/24 03/17/24 Mcg = 1000 Iu)] Furosemide [Lasix] 40 mg PO DAILY 03/17/24 03/17/24 Allergies Allergy/AdvReac Type Severity Reaction Status Date / Time fluticasone AdvReac Nausea Verified 03/17/24 16:36 [From Wixela Inhub] levofloxacin [From Levaquin] AdvReac TENDON PAIN Verified 03/17/24 16:36 salmeterol AdvReac Nausea Verified 03/17/24 16:36 [From Wixela Inhub] Review of Systems ROS Statement: Those systems with pertinent positive or pertinent negative responses have been documented in the HPI. ROS Other: All systems not noted in ROS Statement are negative. Past Medical History Past Medical History: Coronary Artery Disease (CAD), COPD, GERD/Reflux, Hyperlipidemia, Hypertension, Myocardial Infarction ([place]), Pulmonary Embolus ([place]), Renal Disease Additional Past Medical History / Comment(s): Home oxygen prn and pt states he usually wears at night at 2.5 liters, bilateral PEs in 2003, ETOH abuse-pt sta hoang he has never had withdrawal symptoms, chronic low back pain/sciatica/spurs/disc disease much improved after back injections, past urinary retention, diverticulitis/benign colon polyps removed, nephrolithiasis- passed stones on his own, shingelles 16 years ago-R shoulder. Last Myocardial Infarction Date:: 2010 History of Any Multi-Drug Resistant Organisms: None Reported Past Surgical History: Heart Catheterization With Stent Additional Past Surgical History / Comment(s): Back injections for pain, piece of metal removed from rt eye, EGD, colonoscopy Past Anesthesia/Blood Transfusion Reactions: No Reported Reaction Additional Past Anesthesia/Blood Transfusion Reaction / Comment(s): claustrophobia Date of Last Stent Placement:: 2010 Past Psychological History: Anxiety, Depression, PTSD Smoking Status: Former smoker Past Alcohol Use History: None Reported Past Drug Use History: None Reported - Past Family History Mother Family Medical History: Cancer Additional Family Medical History / Comment(s): from breast cancer at age 53 Father Family Medical History: Coronary Artery Disease (CAD), Myocardial Infarction ([place]) Additional Family Medical History / Comment(s): 4 mi's/CABG. at at age 72 General Exam - General Exam Comments Initial Comments: Visual Physical Exam Vital signs reviewed General: Well-appearing, nontoxic, no acute distress. Head: Normocephalic, atraumatic Eyes: PERRLA, EOMI ENT: Airway patent Chest: Nonlabored breathing Skin: No visual rash, normal skin tone Neuro: Alert and oriented 3 Musculoskeletal: No gross abnormalities Limitations: no limitations General appearance: alert, in no apparent distress Head exam: Present: atraumatic, normocephalic, normal inspection Eye exam: Present: normal appearance, PERRL, EOMI. Absent: scleral icterus, conjunctival injection, periorbital swelling Respiratory exam: Present: wheezes Cardiovascular Exam: Present: regular rate, normal rhythm, normal heart sounds. Absent: systolic murmur, diastolic murmur, rubs, gallop, clicks Extremities exam: Present: pedal edema Neurological exam: Present: alert, oriented X3 Psychiatric exam: Present: normal affect, normal mood Skin exam: Present: warm, dry, intact, normal color. Absent: rash Course Vital Signs 03/17/24 03/17/24 03/17/24 11:07 14:59 15:00 Temperature 97.4 F L 97.8 F Pulse Rate 68 62 70 Respiratory 18 20 Rate Blood Pressure 135/86 133/84 O2 Sat by Pulse 93 L 98 Oximetry 03/17/24 03/17/24 15:18 16:00 Temperature Pulse Rate 68 89 Respiratory 20 Rate Blood Pressure 111/66 O2 Sat by Pulse 100 Oximetry Medical Decision Making - Medical Decision Making Quick note performed and electronically signed by Miri Roque PA-C Was pt. sent in by a medical professional or institution ([facility]VIN Wilburn, CERTIFIED SKI PATROLLER, urgent care, hospital, or long-term...) When possible be specific @ -No Did you speak to anyone other than the patient for history (EMS, parent, family, police, friend...)? What history was obtained from this source @ -No Did you review nursing and triage notes (agree or disagree)? Why? @ -I reviewed and agree with nursing and triage notes Were old charts reviewed (outside hosp., previous admission, EMS record, old EKG, old radiological studies, urgent care reports/EKG's, long-term records)? Report findings @ -No old charts were reviewed Differential Diagnosis (chest pain, altered mental status, abdominal pain women, abdominal pain men, vaginal bleeding, weakness, fever, dyspnea, syncope, headache, dizziness, GI bleed, back pain, seizure, CVA, palpatations, mental health, musculoskeletal)? @ -Differential Dyspnea: Coronary syndrome, arrhythmia, tamponade, asthma, COPD, pulmonary embolism, pneumonia, pneumothorax, pulmonary effusion, anaphylaxis, diabetic ketoacidosis, flailed chest, pulmonary contusion, diaphragmatic rupture, anemia, harley romuscular, this is not meant to be an all-inclusive list. EKG interpreted by me (3pts min.). @ -EKG at 1115 shows sinus tachycardia rate 112, WA 169, QRS 91, QTQTc [id number] X-rays interpreted by me (1pt min.). @ -Chest x-ray reveals no acute process CT interpreted by me (1pt min.). @ -CT chest angio shows no evidence of pulmonary embolism U/S interpreted by me (1pt. min.). @ -None done What testing was considered but not performed or refused? (CT, X-rays, U/S, labs)? Why? @ -None What meds were considered but not given or refused? Why? @ -None Did you discuss the management of the patient with other professionals (professionals i.e. , PA, CERTIFIED SKI PATROLLER, lab, RT, psych nurse, case management social worker, food storeroom clerk, teacher, financial aids officer, case finisher)? Give summary @ -Management discussed with Dr. Edmar maher who is accepting of the admission Was smoking cessation discussed for >3mins.? @ -No Was critical care preformed (if so, how long)? @ -No Were there social determinants of health that impacted care today? How? (Homelessness, low income, unemployed, alcoholism, drug addiction, transportation, low edu. Level, literacy, decrease access to med. care, detention, rehab)? @ -No Was there de-escalation of care discussed even if they declined (Discuss DNR or withdrawal of care, Hospice)? DNR status @ -No What co-morbidities impacted this encounter? (DM, HTN, Smoking, COPD, CAD, Cancer, CVA, ARF, Chemo, Hep., AIDS, mental health diagnosis, sleep apnea, morbid obesity)? @ -None Was patient admitted / discharged? Hospital course, mention meds given and route, prescriptions, significant lab abnormalities, going to OR and other pertinent info. @ -Admitted. Patient presented to the emergency department for evaluation of shortness of breath. Patient utilizes home O2 at night but is requiring his oxygen during the day. Laboratory studies obtained significant for mild leukocytosis of 11.2, hemoglobin stable.CMP shows mild hyponatremia with a sodium 134, Tessman 4.7, troponin 0.014, will trend. Patient is not reporting any chest pain. There is documentation within the patient's chart of a prior PE although the patient is unsure about this. He is not currently on blood thinners. Therefore, patient did undergo CT angiogram of the chest which did not show any evidence of pulmonary embolism. Patient will be admitted for COPD exacerbation with IV steroids and every 6 hours breathing treatments. Case discussed with Dr. Hyatt who is accepting of the admission. Patient understanding agreeable with this plan. Case discussed with Dr. Landa Undiagnosed new problem with uncertain prognosis? @ -No Drug Therapy requiring intensive monitoring for toxicity (Heparin, Nitro, Insulin, Cardizem)? @ -No Were any procedures done? @ -No Diagnosis/symptom? @ -COPD exacerbation Acute, or Chronic, or Acute on Chronic? @ -Acute Uncomplicated (without systemic symptoms) or Complicated (systemic symptoms)? @ -uncomplicated Side effects of treatment? @ -No Exacerbation, Progression, or Severe Exacerbation? @ -No Poses a threat to life or bodily function? How? (Chest pain, [place], [place], pneumonia, PE, COPD, DKA, ARF, appy, cholecystitis, CVA, Diverticulitis, Homicidal, Suicidal, threat to staff... and all critical care pts) @ -No - Lab Data Result diagrams: 03/17/24 11:23 03/17/24 11:23 Lab Results 03/17/24 03/17/24 03/17/24 Range/Units 11:23 11:23 11:23 WBC 11.8 H (3.8-10.6) k/uL RBC 4.88 (4.30-5.90) m/uL Hgb 13.6 (13.0-17.5) gm/dL Hct 42.1 (39.0-53.0) % MCV 86.3 (80.0-100.0) fL MCH 27.8 (25.0-35.0) pg MCHC 32.2 (31.0-37.0) g/dL RDW 14.4 (11.5-15.5) % Plt Count 254 (150-450) k/uL MPV 7.3 Neutrophils % 78 % Lymphocytes % 13 % Monocytes % 6 % Eosinophils % 1 % Basophils % 0 % Neutrophils # 9.2 H (1.3-7.7) k/uL Lymphocytes # 1.5 (1.0-4.8) k/uL Monocytes # 0.8 (0-1.0) k/uL Eosinophils # 0.1 (0-0.7) k/uL Basophils # 0.0 (0-0.2) k/uL PT (10.0-12.5) sec INR (<1.2) APTT (22.0-30.0) sec Sodium 134 L (137-145) mmol/L Potassium 4.7 (3.5-5.1) mmol/L Chloride 99 (98-107) mmol/L Carbon Dioxide 29 (22-30) mmol/L Anion Gap 6 mmol/L BUN 12 (9-20) mg/dL Creatinine 0.88 (0.66-1.25) mg/dL Est GFR (CKD-EPI)AfAm >90 (>60 ml/min/1.73 sqM) Est GFR (CKD-EPI)NonAf 84 (>60 ml/min/1.73 sqM) Glucose 119 H (74-99) mg/dL Calcium 9.0 (8.4-10.2) mg/dL Total Bilirubin 1.1 (0.2-1.3) mg/dL AST 23 (17-59) U/L ALT 15 (4-49) U/L Alkaline Phosphatase 50 (38-126) U/L Troponin I 0.014 (0.000-0.034) ng/mL Total Protein 6.7 (6.3-8.2) g/dL Albumin 4.0 (3.5-5.0) g/dL 03/17/24 03/17/24 Range/Units 14:42 15:36 WBC (3.8-10.6) k/uL RBC (4.30-5.90) m/uL Hgb (13.0-17.5) gm/dL Hct (39.0-53.0) % MCV (80.0-100.0) fL MCH (25.0-35.0) pg MCHC (31.0-37.0) g/dL RDW (11.5-15.5) % Plt Count (150-450) k/uL MPV Neutrophils % % Lymphocytes % % Monocytes % % Eosinophils % % Basophils % % Neutrophils # (1.3-7.7) k/uL Lymphocytes # (1.0-4.8) k/uL Monocytes # (0-1.0) k/uL Eosinophils # (0-0.7) k/uL Basophils # (0-0.2) k/uL PT 9.7 L (10.0-12.5) sec INR 0.9 (<1.2) APTT 22.0 (22.0-30.0) sec Sodium (137-145) mmol/L Potassium (3.5-5.1) mmol/L Chloride (98-107) mmol/L Carbon Dioxide (22-30) mmol/L Anion Gap mmol/L BUN (9-20) mg/dL Creatinine (0.66-1.25) mg/dL Est GFR (CKD-EPI)AfAm (>60 ml/min/1.73 sqM) Est GFR (CKD-EPI)NonAf (>60 ml/min/1.73 sqM) Glucose (74-99) mg/dL Calcium (8.4-10.2) mg/dL Total Bilirubin (0.2-1.3) mg/dL AST (17-59) U/L ALT (4-49) U/L Alkaline Phosphatase (38-126) U/L Troponin I 0.017 (0.000-0.034) ng/mL Total Protein (6.3-8.2) g/dL Albumin (3.5-5.0) g/dL Disposition Clinical Impression: COPD exacerbation Disposition: ADMITTED IP TO THIS HOSP Condition: Stable Is patient prescribed a controlled substance at d/c from ED?: No Referrals: [facility],Clinic [Primary Care Provider] - 1-2 days
--- NOTE | 2024-03-17 12:49 | XR ---
Two-view chest HISTORY: Difficulty breathing. COMPARISON: 12/07/2019. TECHNIQUE: PA and lateral views chest obtained. FINDINGS: The lungs are clear of consolidative or abnormal interstitial opacity. There is no pleural effusion, pleural thickening or pneumothorax. The heart, pulmonary vasculature, mediastinum and hilum appear normal. The osseous structures soft tissues unremarkable. IMPRESSION: No acute cardiopulmonary disease with no interval change. [facility], Workstation: [email or web address] [id number], 03/17/2024 12:47 PM
[2024-03-17 12:57] LABS: AST 23 U/L (17-59); Alkaline Phosphatase 50 U/L (38-126); Potassium 4.7 mmol/L (3.5-5.1)
[2024-03-17] MEDS: methylPREDNISolone SOD SUCCI 125 MG/2 ML VIAL IV STA (14:45)
[2024-03-17] MEDS: SODIUM CHLORIDE 0.9% 500 ML 500 ML IV STA (14:45)
[2024-03-17] MEDS: IPRATROPIUM-ALBUTEROL 3 ML NEB INHALATION STA (15:00)
[2024-03-17 15:15] LABS: INR 0.9 (<1.2); Prothrombin Time 9.7 sec (10.0-12.5)
[2024-03-17] MEDS: MORPHINE SULFATE 2 MG/ML SYRINGE IVP ONE (15:59)
[2024-03-17] MEDS: KETOROLAC 15 MG/ML 1 ML VIAL IVP STA (15:59)
--- NOTE | 2024-03-17 17:50 | CT ---
EXAMINATION TYPE: CT angio chest DATE OF EXAM: 03/17/2024 5:32 PM COMPARISON: 12/07/2019 CLINICAL INDICATION: Male, 78 years old with history of dyspnea; aidan/copd TECHNIQUE/CONTRAST: CTA scan of the thorax is performed with IV Contrast, patient injected with 100ml mL of Isovue 370, M IP images are created and reviewed these are created on a separate workstation.. CT DLP: 686.2 mGycm, Automated exposure control for dose reduction was used. FINDINGS: Lungs/Pleura: No evidence of focal consolidation, pleural effusion or pneumothorax. Moderate centrilo bular emphysema. Scattered sub-5/6 mm pulmonary nodules. Suspected atelectasis along the periphery at multiple spots. Right lower lung calcified granulomas. Airway: Large airways are patent. Heart: Heart is within normal limits for size. Vasculature: There is no evidence for a filling defect within the pulmonary vasculature to suggest ac tanya pulmonary embolism. The pulmonary artery is of normal size. Mediastinum: No gross evidence of adenopathy. Partially calcified lymph nodes in the subcarinal regio n. Musculoskeletal: No acute osseous abnormalities Soft Tissues/lymph nodes: Unremarkable. Lower neck: No significant findings. Upper Abdomen: Calcified granulomas in the spleen. Layering high density in the gallbladder possibly related to sludge*small gallstones. IMPRESSION: 1. No evidence of pulmonary embolism. 2. Moderate emphysema. 3. Sequela of Graves' disease with in the spleen and lungs. 4. Biliary sludge/cholelithiasis. [facility], , 03/17/2024 5:47 PM
[2024-03-17] MEDS ORDERED: ACETAMINOPHEN TAB 325 MG TAB PO PRN (17:56)
[2024-03-17] MEDS ORDERED: NALOXONE 0.4 MG/ML 1 ML VIAL IVP PRN (17:56)
[2024-03-17] MEDS ORDERED: HYDROcodone/APAP 5-325MG 1 EACH TAB PO PRN (18:01)
[2024-03-17] MEDS: methylPREDNISolone SOD SUCCI 125 MG/2 ML VIAL IV SCH (19:11)
[2024-03-17] MEDS: IPRATROPIUM-ALBUTEROL 3 ML NEB INHALATION SCH (20:17)
--- NOTE | 2024-03-17 21:04 | P.HPIM ---
History of Present Illness H&P Date: 03/17/24 Chief Complaint: Shortness of breath History of present illness; 78-year-old male with PMH of COPD (on 3 L O2 at home), CAD, hyperlipidemia, hypertension, history of [place], and history of PE presents with complaints of shortness of breath. Reports for the last 2 days he is felt increased shortness of breath and has had a productive cough with whitegreenish sputum color. Reports this morning he got up from bed and tried to walk 10 feet and felt extremely short of breath. Denies fevers, and denies ever being intubated for COPD exacerbation in the past. In addition to the shortness of breath he also reports for the last 1 to 2 months he has had numbness in his feet and ankles. Reports in the past he has been told by his primary care that he has claudication in the legs. Reports the numbness is not significantly increased today compared to how it has previously been. Denies history of diabetes. Admits to shortness of breath, cough, numbness in the feet and ankles bilaterally, but denies fever, chills, chest pain, palpitations, abdominal pain, nausea, vomiting, diarrhea, constipation, and diaphoresis. Vitals: Tmax 97.8, heart rate 98, respiratory rate 18, BP 129/76, on 3 L satura ting at 99%. Labs: WBC 11.8, hemoglobin 13.6, MCV 86.3, neutrophils 9.2, PT 9.7, sodium 134, potassium 4.7, creatinine 0.88, glucose 119, troponin 0.014-->0.017-->0.014 Imaging: - EKG done in the ER showed heart rate of 112 bpm, sinus tachycardia, minimal ST depression, and QTc 382 ms. - ER CXR: No acute cardiopulmonary disease with no interval change. - ER CTA chest: No evidence of pulmonary embolism, moderate emphysema, sequela of Graves' disease with in the spleen and lungs, and biliary sludge/cholelithiasis. REVIEW OF SYSTEMS: As stated above in HPI. The rest of the 14-point review of systems is negative. PHYSICAL EXAMINATION: GENERAL: The patient is alert and oriented x3, not in any acute distress. Well developed, well nourished. HEENT: Pupils are round and equally reacting to light. EOMI. No scleral icterus. No conjunctival pallor. Normocephalic, atraumatic. CARDIOVASCULAR: S1 and S2 present. No murmurs, rubs, or gallops. PULMONARY: Decreased lung sounds bilaterally with occasional wheezes heard on expiration. ABDOMEN: Soft, nontender, nondistended, normoactive bowel sounds. No palpable organomegaly. MUSCULOSKELETAL: No joint swelling or deformity. EXTREMITIES: No cyanosis, clubbing, 1-2+ pitting edema up to the mid calf noted bilaterally NEUROLOGICAL: Gross neurological examination did not reveal any focal deficits. SKIN: No rashes. Assessment and Plan 78-year-old male with PMH of COPD (on 3 L O2 at home), hyperlipidemia, hypertension, history of [place], and history of PE presents with complaints of shortness of breath. Patient is being worked up for acute on chronic hypoxic respiratory failure likely secondary to COPD exacerbation. #Acute on chronic hypoxic respiratory failure: Likely secondary to COPD exacerbation # Acute COPD exacerbation -Received one-time Solu-Medrol 125 mg IV once in the ED -Continue DuoNeb 3 mL inhalation 4 times daily, DuoNeb 3 mL every 2 hours as needed, prednisone 40 daily -Patient currently on home 3 L oxygen -Continue on Symbicort twice daily # Chronic numbness B/L LE's: -Per the patient's this is chronic, not acutely worse today. -Outpatient workup Chronic Conditions: #CAD: -Continue home Plavix and 5 mg p.o. daily, metoprolol tartrate 25 mg p.o. twice daily, spironolactone 25 mg p.o. daily, and simvastatin 40 mg p.o. at bedtime, and aspirin 81 mg p.o. daily #Hypertension: -Continue home medications as above as well as lisinopril 2.5 mg p.o. at bedtime and Lasix 40 mg p.o. daily #Hyperlipidemia: -Continue home statin as above #Hx of PE: - not on any blood thinner at home - No evidence of PE on CTA chest here F: P.o. E: None N: Heart healthy DVT ppx: Lovenox 40 SQ daily CODE STATUS: Full code Dispo: Pending clinical course Butch Ureña MD PGY-1 FM Dictation was produced using [employer] dictation software. please excuse any grammatical, word or spelling errors. The patient is admitted with an anticipated less than 2 midnight stay as observation status for evaluation of COPD exacerbation. A total of 65 minutes was spent on the care of this complex patient more than 50% of the time was spent in counseling and care coordination. I have seen and evaluated the patient today. Discussed with the resident and agree with the residents finding and plan as documented in the resident's note. Changes highlighted in blue font. Past Medical History Past Medical History: Coronary Artery Disease (CAD), COPD, GERD/Reflux, Hyperlipidemia, Hypertension, Myocardial Infarction ([place]), Pulmonary Embolus (PE), Renal Disease Additional Past Medical History / Comment(s): Home oxygen prn and pt states he usually wears at night at 2.5 liters, bilateral PEs in 2003, ETOH abuse-pt states he has never had withdrawal symptoms, chronic low back pain/sciatica/spurs/disc disease much improved after back injections, past urinary retention, diverticulitis/benign colon polyps removed, nephrolithiasis- passed stones on his own, shingelles 16 years ago-R shoulder. Last Myocardial Infarction Date:: 2010 History of Any Multi-Drug Resistant Organisms: None Reported Past Surgical History: Heart Catheterization With Stent Additional Past Surgical History / Comment(s): Back injections for pain, piece of metal removed from rt eye, EGD, colonoscopy Past Anesthesia/Blood Transfusion Reactions: No Reported Reaction Additional Past Anesthesia/Blood Transfusion Reaction / Comment(s): bill strophobia Date of Last Stent Placement:: 2010 Past Psychological History: Anxiety, Depression, PTSD Smoking Status: Former smoker Past Alcohol Use History: None Reported Past Drug Use History: None Reported - Past Family History Mother Family Medical History: Cancer Additional Family Medical History / Comment(s): from breast cancer at age 53 Father Family Medical History: Coronary Artery Disease (CAD), Myocardial Infarction ([place]) Additional Family Medical History / Comment(s): 4 mi's/CABG. at at age 72 Medications and Allergies Home Medications Medication Instructions Recorded Confirmed Type Aspirin EC [Ecotrin Low Dose] 81 mg PO DAILY 06/22/18 03/17/24 History Budesonide/Formoterol Fumarate 2 puff INHALATION RT-BID 06/22/18 03/17/24 History [Symbicort 160-4.5 Mcg Inhaler] Ipratropium/Albuterol Sulfate 1 puff INHALATION RT-QID 06/22/18 03/17/24 History [Combivent Respimat Inhaler] Metoprolol Tartrate [Lopressor] 25 mg PO BID 06/22/18 03/17/24 History Spironolactone 25 mg PO DAILY 06/22/18 03/17/24 History lisinopriL [Zestril] 2.5 mg PO HS 06/22/18 03/17/24 History Clopidogrel Bisulfate [Plavix] 75 mg PO DAILY 07/01/18 03/17/24 History Albuterol Inhaler [Ventolin Hfa 2 puff INHALATION RT-TID PRN 12/07/19 03/17/24 History Inhaler] Albuterol Nebulized [Ventolin 2.5 mg INHALATION RT-QID 12/07/19 03/17/24 History Nebulized] Loratadine [Claritin] 10 mg PO DAILY 12/07/19 03/17/24 History Simvastatin [Zocor] 40 mg PO HS 12/07/19 03/17/24 History Tiotropium 18 Mcg/Puff [Spiriva] 2 puff INHALATION RT-DAILY 12/07/19 03/17/24 History Cholecalciferol [Vitamin D3 (25 25 mcg PO BID 03/17/24 03/17/24 History Mcg = 1000 Iu)] Furosemide [Lasix] 40 mg PO DAILY 03/17/24 03/17/24 History Allergies Allergy/AdvReac Type Severity Reaction Status Date / Time fluticasone AdvReac Nausea Verified 03/17/24 16:36 [From [facility]] levofloxacin [From Levaquin] AdvReac TENDON PAIN Verified 03/17/24 16:36 salmeterol AdvReac Nausea Verified 03/17/24 16:36 [From [facility]ix[facility] In[facility]] Physical Exam Vitals: Vital Signs Temp Pulse Resp BP Pulse Ox 03/17/24 18:39 98 18 129/76 99 03/17/24 16:00 89 20 111/66 100 03/17/24 15:18 68 03/17/24 15:00 70 03/17/24 14:59 97.8 F 62 20 133/84 98 03/17/24 11:07 97.4 F L 68 18 135/86 93 L Intake and Output 03/17/24 03/17/24 03/17/24 06:59 14:59 22:59 Other: Weight 121.563 kg Results CBC & Chem 7: 03/17/24 11:23 03/17/24 11:23 Labs: Abnormal Lab Results - Last 24 Hours (Table) 03/17/24 03/17/24 03/17/24 Range/Units 11:23 11:23 14:42 WBC 11.8 H (3.8-10.6) k/uL Neutrophils # 9.2 H (1.3-7.7) k/uL PT 9.7 L (10.0-12.5) sec Sodium 134 L (137-145) mmol/L Glucose 119 H (74-99) mg/dL
[2024-03-17] MEDS ORDERED: IPRATROPIUM-ALBUTEROL 3 ML NEB INHALATION SCH (23:00)
[2024-03-17] MEDS ORDERED: IPRATROPIUM-ALBUTEROL 3 ML NEB INHALATION PRN (23:11)
[2024-03-18] MEDS ORDERED: IPRATROPIUM 0.5 MG/2.5 ML NEBU INHALATION SCH (08:00)
[2024-03-18] MEDS: SYMBICORT 160-4.5 MCG INHALER INHALATION SCH (08:26)
[2024-03-18] MEDS ORDERED: predniSONE 20 MG TAB PO SCH (09:00)
[2024-03-18] MEDS: CLOPIDOGREL 75 MG TAB PO SCH (11:16)
[2024-03-18] MEDS: ENOXAPARIN 40 MG/0.4 ML SYRINGE SQ SCH (11:16)
[2024-03-18] MEDS: CHOLECALCIFEROL 25 MCG (1000 IU) TABLET PO SCH (11:16)
[2024-03-18] MEDS: ASPIRIN 81 MG PO SCH (11:16)
[2024-03-18] MEDS: METOPROLOL TARTRATE 25 MG TAB PO SCH (11:17)
[2024-03-18] MEDS: FUROSEMIDE 40 MG TAB PO SCH (11:17)
[2024-03-18] MEDS: SPIRONOLACTONE 25 MG TAB PO SCH (11:17)
[2024-03-18] MEDS: LORATADINE 10 MG TAB PO SCH (11:17)
--- NOTE | 2024-03-18 14:17 | P.PN ---
Subjective Progress Note Date: 03/18/24 Hospital course: Patient is a pleasant 78-year-old male with a past medical history of CAD status post stenting, hypertension, hyperlipidemia, COPD home oxygen dependent nightly on 2-1/2 L, anxiety, depression, and reports of previous provoked PE no longer on anticoagulation. He presented to the hospital on 03/17/2024 secondary to increased shortness of breath and productive cough x 2 days worse with exertion similar to previous COPD exacerbations.. Upon arrival to our facility, patient underwent evaluation in the emergency department. Vital signs upon arrival show blood pressure 135/86, heart rate 68, respiratory rate 18, temp 97.4 F, and SpO2 of 93% on room air. EKG was completed showing sinus tachycardia at [address] depression in leads II, aVF, and V4 through V6 (ST depression previously present in leads aVF and V4 through V6 and EKG completed 12/07/2019). Chest x-ray completed negative for acute cardiopulmonary process. CTA chest showing moderate emphysema and no evidence for pulmonary emboli. Labs completed and reviewed. CBC showing mild leukocytosis with WBC count of 11.8 otherwise normal findings. Coagulation profile showing low PT of 9.7 otherwise normal findings. BMP showing hyponatremia with sodium of 134 and blood glucose of 119. Liver profile unremarkable. Troponin 0.014. Patient mated under services with consultation to pulmonology. Troponins were trended resulting at 0.014, 0.017, and 0.014. Physical exam: Patient was seen and fully evaluated at bedside this morning. At time of examination patient is tachypneic with slightly labored respirations as he reports just walking back from the restroom. He was placed back on nasal ca nnula at 3 L and SpO2 increasing to 94%.. Patient denies having any chest pain or any other complaints at this time. He does report persistent chronic lower extremity paresthesias at rest. Vital signs reviewed and stable. General: Nontoxic, no distress and appears stated age. Derm: Skin warm and dry, normal coloration for ethnicity. Head: Atraumatic, normocephalic and symmetric. Eyes: EOM's intact, no lid lag, and anicteric sclera Mouth: no lip lesions, mucus membranes moist Cardiovascular: regular rate and rhythm with normal S1S2, no murmur, positive posterior tibial pulses bilaterally, and cap refill < 2 seconds. Lungs: Respirations tachypneic and slightly labored upon examination as patient just returned from walking from the restroom.. He was on 3 L O2 via nasal cannula with SpO2 of 94% at time of exam. Lungs diminished with diffuse expiratory wheezes throughout. No rales, rhonchi, or crackles noted. Abdominal: soft, nontender to palpation, no guarding, no appreciable organomegaly Ext: ROM intact. No gross muscle atrophy, no edema, no contractures Neuro: Speech clear, face symmetrical and CN II-XII grossly intact with no noted focal neuro deficits Psych: Alert and oriented to person, place, time, and situation. Appropriate and pleasant affect. Assessment and Plan of Care: Acute on chronic hypoxic respiratory failure COPD exacerbation -Pulmonology following, discussed plan with pulmonary ACTUARIAL ASSOCIATE -Oxygenation to be administered and titrated as needed to maintain SPO2 equal to or greater than 92% -Telemetry monitoring. -Monitor pulse-oximetry -Duonebs scheduled 4 times daily and as needed for SOB and/or wheezing -Incentive Spirometry -Steroids: Solu-Medrol 60 mg IVP every 8 hours -Continue Symbicort 160-4.5 mcg inhaler 2 puffs twice daily. Chronic paresthesias of bilateral lower extremities, suspect restless leg syndrome as patient reports worst at rest -Patient started on Requip 0.25 mg 3 times daily and will require further ou tpatient workup. CAD status post stenting Hypertension Hyperlipidemia -Continue daily medication regimen with aspirin 81 mg daily, atorvastatin 20 mg nightly, Plavix 75 mg daily, Lasix 40 mg daily, lisinopril 2.5 mg nightly, metoprolol 25 mg twice daily, and Aldactone 25 mg daily. Data and imaging reviewed: -EKG was completed showing sinus tachycardia at [address] depression in leads II, aVF, and V4 through V6 (ST depression previously present in leads aVF and V4 through V6 and EKG completed 12/07/2019). -Chest x-ray completed negative for acute cardiopulmonary process. -CTA chest showing moderate emphysema and no evidence for pulmonary emboli. -Labs reviewed. CBC showing mild leukocytosis with WBC count of 11.8 otherwise normal findings. Coagulation profile showing low PT of 9.7 otherwise normal findings. BMP showing hyponatremia with sodium of 134 and blood glucose of 119. Liver profile unremarkable. Troponins were trended resulting at 0.014, 0.017, and 0.014. -Vital signs reviewed: Blood pressure 157/82, heart rate 99, respiratory rate 19, temp 98.6 F, and SpO2 of 96% on 3 L. CODE STATUS full code DVT prophylaxis: Lovenox Anticipated discharge date: Pending clinical course, likely 24 to [address]: Home Patient was seen independently by Nurse Pracitioner. This document was prepared using [employer] dictation software. Please allow for errors in thread roller, while rare they do occur. Ifeanyi Lucio NP rendered care for this patient independently, reviewed the findings and plan as documented in the note above and agree with plan. I did not physically speak with or examine the patient on this date. Objective - Vital Signs Vital signs: Vital Signs Temp 98.6 F 03/18/24 07:00 Pulse 68 03/18/24 08:30 Resp 19 03/18/24 07:00 BP 157/82 03/18/24 07:00 Pulse Ox 96 03/18/24 08:30 FiO2 Intake & Output 03/17/24 03/18/24 03/18/24 18:59 06:59 18:59 Intake Total 120 Output Total 700 Balance -580 Weight 121.563 kg 121.563 kg Intake: Oral 120 Output: Urine 700 Other: # Voids 1 - Labs CBC & Chem 7: 03/17/24 11:23 03/17/24 11:23 Labs: Abnormal Lab Results - Last 24 Hours (Table) 03/17/24 03/17/24 03/17/24 Range/Units 11:23 11:23 14:42 WBC 11.8 H (3.8-10.6) k/uL Neutrophils # 9.2 H (1.3-7.7) k/uL PT 9.7 L (10.0-12.5) sec Sodium 134 L (137-145) mmol/L Glucose 119 H (74-99) mg/dL
[2024-03-18] MEDS: methylPREDNISolone SOD SUCCI 125 MG/2 ML VIAL IV SCH (17:24)
[2024-03-18 20:03] VITALS: RESP 18
[2024-03-18] MEDS: ATORVASTATIN 20 MG TAB PO SCH (21:31)
[2024-03-19 07:40] VITALS: BP 132/83; TEMP 98.6
[2024-03-19 08:32] VITALS: PULSE 94
--- NOTE | 2024-03-19 09:56 | P.DS ---
Providers Date of admission: 03/17/24 14:36 Expected date of discharge: 03/19/24 Attending physician: Aric Hyatt Primary care physician: [facility] Hospital Course: Discharge Diagnosis: Acute on chronic hypoxic respiratory failure COPD exacerbation Chronic paresthesias of bilateral lower extremities, suspect restless leg syndrome as patient reports worst at rest CAD status post stenting Hypertension Hyperlipidemia Hospital course: Patient is a pleasant 78-year-old male with a past medical history of CAD status post stenting, hypertension, hyperlipidemia, COPD home oxygen dependent nightly on 2-1/2 L, anxiety, depression, and reports of previous provoked PE no longer on anticoagulation. He presented to the hospital on 03/17/2024 secondary to increased shortness of breath and productive cough x 2 days worse with exertion similar to previous COPD exacerbations.. Upon arrival to our facility, patient underwent evaluation in the emergency department. Vital signs upon arrival show blood pressure 135/86, heart rate 68, respiratory rate 18, temp 97.4 F, and SpO2 of 93% on room air. EKG was completed showing sinus tachycardia at [address] depression in leads II, aVF, and V4 through V6 (ST depression previously present in leads aVF and V4 through V6 and EKG completed 12/07/2019). Chest x-ray completed negative for acute cardiopulmonary process. CTA chest showing moderate emphysema and no evidence for pulmonary emboli. Labs completed and reviewed. CBC showing mild leukocytosis with WBC count of 11.8 otherwise normal findings. Coagulation profile showing low PT of 9.7 otherwise normal findings. BMP showing hyponatremia with sodium of 134 and blood glucose of 119. Liver profile unremarkable. Troponin 0.014. Patient mated under services. Troponins were trended resulting at 0.014, 0.017, and 0.014. Patient received IV steroids and [id number] breathing treatments. Condition greatly im proved. Patient reports feeling "great". Patient states feeling almost better than baseline at this time. Will discharge home on Medrol Dosepak and recommend outpatient follow-up with PCP in 2 to 3 days and with caterers helper in 1 week. Physical exam: Vital signs reviewed and stable. General: Nontoxic, no distress and appears stated age. Derm: Skin warm and dry, normal coloration for ethnicity. Head: Atraumatic, normocephalic and symmetric. Eyes: EOM's intact, no lid lag, and anicteric sclera Mouth: no lip lesions, mucus membranes moist Cardiovascular: regular rate and rhythm with normal S1S2, no murmur, positive posterior tibial pulses bilaterally, and cap refill < 2 seconds. Lungs: Respirations tachypneic and slightly labored upon examination as patient just returned from walking from the restroom.. He was on 3 L O2 via nasal cannula with SpO2 of 94% at time of exam. Lungs diminished with diffuse expiratory wheezes throughout. No rales, rhonchi, or crackles noted. Abdominal: soft, nontender to palpation, no guarding, no appreciable organomegaly Ext: ROM intact. No gross muscle atrophy, no edema, no contractures Neuro: Speech clear, face symmetrical and CN II-XII grossly intact with no noted focal neuro deficits Psych: Alert and oriented to person, place, time, and situation. Appropriate and pleasant affect. A total of 33 minutes of time were spent preparing this complex discharge summary. Pt was discharged on 03/19/2024 at 9:55 AM. Patient was seen independently by Nurse Practitioner. This document was prepared using [employer] dictation software. Please allow for errors in voice coach while rare they do occur. Ifeanyi Lucio NP rendered care for this patient independently, reviewed the findings and plan as documented in the note above. I did not physically speak with or examine the patient on this date. Patient Condition at Discharge: Stable Plan - Discharge Summary Discharge Rx Participant: No New Discharge Prescriptions: New methylPREDNISolone Dose Pack [Medrol Dose Pack] 4 mg PO DIRECTED #21 tab Continue Aspirin EC [Ecotrin Low Dose] 81 mg PO DAILY Budesonide/Formoterol Fumarate [Symbicort 160-4.5 Mcg Inhaler] 2 puff INHALATION RT-BID Ipratropium/Albuterol Sulfate [Combivent Respimat Inhaler] 1 puff INHALATION RT-QID lisinopriL [Zestril] 2.5 mg PO HS Metoprolol Tartrate [Lopressor] 25 mg PO BID Spironolactone 25 mg PO DAILY Clopidogrel Bisulfate [Plavix] 75 mg PO DAILY Tiotropium 18 Mcg/Puff [Spiriva] 2 puff INHALATION RT-DAILY Simvastatin [Zocor] 40 mg PO HS Albuterol Nebulized [Ventolin Nebulized] 2.5 mg INHALATION RT-QID Loratadine [Claritin] 10 mg PO DAILY Albuterol Inhaler [Ventolin Hfa Inhaler] 2 puff INHALATION RT-TID PRN PRN Reason: Shortness Of Breath Cholecalciferol [Vitamin D3 (25 Mcg = 1000 Iu)] 25 mcg PO BID Furosemide [Lasix] 40 mg PO DAILY Discharge Medication List Aspirin EC [Ecotrin Low Dose] 81 mg PO DAILY 06/22/18 [History] Budesonide/Formoterol Fumarate [Symbicort 160-4.5 Mcg Inhaler] 2 puff INHALATION RT-BID 06/22/18 [History] Ipratropium/Albuterol Sulfate [Combivent Respimat Inhaler] 1 puff INHALATION RT- QID 06/22/18 [History] Metoprolol Tartrate [Lopressor] 25 mg PO BID 06/22/18 [History] Spironolactone 25 mg PO DAILY 06/22/18 [History] lisinopriL [Zestril] 2.5 mg PO HS 06/22/18 [History] Clopidogrel Bisulfate [Plavix] 75 mg PO DAILY 07/01/18 [History] Albuterol Inhaler [Ventolin Hfa Inhaler] 2 puff INHALATION RT-TID PRN 12/07/19 [History] Albuterol Nebulized [Ventolin Nebulized] 2.5 mg INHALATION RT-QID 12/07/19 [History] Loratadine [Claritin] 10 mg PO DAILY 12/07/19 [History] Simvastatin [Zocor] 40 mg PO HS 12/07/19 [History] Tiotropium 18 Mcg/Puff [Spiriva] 2 puff INHALATION RT-DAILY 12/07/19 [History] Cholecalciferol [Vitamin D3 (25 Mcg = 1000 Iu)] 25 mcg PO BID 03/17/24 [History] Furosemide [Lasix] 40 mg PO DAILY 03/17/24 [History] methylPREDNISolone Dose Pack [Medrol Dose Pack] 4 mg PO DIRECTED #21 tab 03/19/24 [Rx] Follow up Appointment(s)/Referral(s): [facility],Clinic [Primary Care Provider] - 1-2 days Mindy Vargas MD [STAFF PHYSICIAN] - 1 Week Activity/Diet/Wound Care/Special Instructions: Activity: As tolerated. Take breaks as needed. Diet: Heart healthy and carb consistent diet. Avoid salts, or foods with hidden salts such as canned or boxed foods and frozen dinners. Extra salt makes your heart work harder and traps the fluid in your body for longer. Special Instructions: Take all of your medications as directed and remember to keep all of your doctor's appointments and follow-up as needed. Thank you again for your service, it is always an honor having the opportunity to participate in the care of a !!!! Thank you for allowing us to participate in your care, it was truly a pleasure having you for our patient!!! . Discharge Disposition: HOME SELF-CARE
== END 2024-03-19 10:48 | disposition home or self-care (01) ==
LOC: EC 10:59 → 6NMEDSUR 14:36
PROVIDERS: ADMIT Student in an Organized Health Care Education/Training Program; ATTEND Student in an Organized Health Care Education/Training Program
DX: J96.21 Acute and chronic respiratory failure with hypoxia (principal); J44.1 Chronic obstructive pulmonary disease with (acute) exacerbation; R20.2 Paresthesia of skin; I25.10 Atherosclerotic heart disease of native coronary artery without angina pectoris; Z95.5 Presence of coronary angioplasty implant and graft; I10 Essential (primary) hypertension; E78.5 Hyperlipidemia, unspecified; F41.9 Anxiety disorder, unspecified; Z86.711 Personal history of pulmonary embolism; Z99.81 Dependence on supplemental oxygen; F32.A Depression, unspecified; R00.0 Tachycardia, unspecified; E87.1 Hypo-osmolality and hyponatremia; J43.9 Emphysema, unspecified; D72.829 Elevated white blood cell count, unspecified; R20.0 Anesthesia of skin; I25.2 Old myocardial infarction; Z79.899 Other long term (current) drug therapy; F43.10 Post-traumatic stress disorder, unspecified; Z87.891 Personal history of nicotine dependence; Z79.82 Long term (current) use of aspirin; Z79.51 Long term (current) use of inhaled steroids; Z79.02 Long term (current) use of antithrombotics/antiplatelets; Z80.3 Family history of malignant neoplasm of breast; Z82.49 Family history of ischemic heart disease and other diseases of the circulatory system
CPT/HCPCS: 96376 ×3; 96361; 96374; 96375; 99285; 36415; 94640 ×5; 94760 ×2; 93005; 80053; 84484; 85025; 85610; 85730; 71046; 71275; G0378 ×3; J2270; J1885; Q9967; J2919 ×3

== ENCOUNTER 2024-04-06 13:57 | Inpatient (IN) | payer MEDICARE ==
--- NOTE | 2024-04-06 14:43 | ED ---
General Adult HPI - General Chief complaint: Shortness of Breath Stated complaint: sob, chest pain Time Seen by Provider: 04/06/24 14:20 Source: patient, RN notes reviewed, old records reviewed Mode of arrival: wheelchair Limitations: no limitations - History of Present Illness Initial comments: This is a 78-year-old male who presents to the emergency department complaining of shortness of breath starting this morning when he woke up. Patient states he has a history of congestive heart failure and COPD. Patient states with smoke about 15 years ago. Patient denies any chest pain. Patient denies abdominal pain patient has any fever chills but does have a dry cough which is no worse than his baseline. Patient states he has not noticed any increased edema in his legs. - Related Data Home Medications Medication Instructions Recorded Confirmed Aspirin EC [Ecotrin Low Dose] 81 mg PO DAILY 06/22/18 04/06/24 Budesonide/Formoterol Fumarate 2 puff INHALATION RT-BID 06/22/18 04/06/24 [Symbicort 160-4.5 Mcg Inhaler] Ipratropium/Albuterol Sulfate 1 puff INHALATION RT-QID 06/22/18 04/06/24 [Combivent Respimat Inhaler] Metoprolol Tartrate [Lopressor] 25 mg PO BID 06/22/18 04/06/24 Spironolactone 25 mg PO DAILY 06/22/18 04/06/24 lisinopriL [Zestril] 2.5 mg PO HS 06/22/18 04/06/24 Clopidogrel Bisulfate [Plavix] 75 mg PO DAILY 07/01/18 04/06/24 Albuterol Inhaler [Ventolin Hfa 2 puff INHALATION RT-Q6H PRN 12/07/19 04/06/24 Inhaler] Albuterol Nebulized [Ventolin 2.5 mg INHALATION RT-QID 12/07/19 04/06/24 Nebulized] Loratadine [Claritin] 10 mg PO DAILY 12/07/19 04/06/24 Simvastatin [Zocor] 40 mg PO HS 12/07/19 04/06/24 Tiotropium 18 Mcg/Puff [Spiriva] 2 puff INHALATION RT-DAILY 12/07/19 04/06/24 Cholecalciferol [Vitamin D3 (25 25 mcg PO BID 03/17/24 04/06/24 Mcg = 1000 Iu)] Furosemide [Lasix] 40 mg PO DAILY 03/17/24 04/06/24 Ferrous Sulfate [Feosol] 325 mg PO DIRECTED 04/06/24 04/06/24 Folic Acid 1 mg PO DIRECTED 04/06/24 04/06/24 Gabapentin [Neurontin] 100 mg PO DIRECTED 04/06/24 04/06/24 Pantoprazole [Protonix] 40 mg PO DIRECTED 04/06/24 04/06/24 Vitamin B-12 50mcg 50 mcg PO DIRECTED 04/06/24 04/06/24 metFORMIN HCL 500 mg PO DIRECTED 04/06/24 04/06/24 predniSONE [Deltasone] 40 mg PO DIRECTED 04/06/24 04/06/24 Allergies Allergy/AdvReac Type Severity Reaction Status Date / Time fluticasone AdvReac Nausea Verified 04/06/24 14:00 [From [facility]] levofloxacin [From Levaquin] AdvReac TENDON PAIN Verified 04/06/24 14:00 salmeterol AdvReac Nausea Verified 04/06/24 14:00 [From [facility]] Review of Systems ROS Statement: Those systems with pertinent positive or pertinent negative responses have been documented in the HPI. ROS Other: All systems not noted in ROS Statement are negative. Past Medical History Past Medical History: Coronary Artery Disease (CAD), COPD, GERD/Reflux, Hyperlipidemia, Hypertension, Myocardial Infarction (LA), Pulmonary Embolus (PE), Renal Disease Additional Past Medical History / Comment(s): Home oxygen prn and pt states he usually wears at night at 2.5 liters, bilateral PEs in 2003, ETOH abuse-pt states he has never had withdrawal symptoms, chronic low back pain/sciatica/spurs/disc disease much improved after back injections, past urinary retention, diverticulitis/benign colon polyps removed, nephrolithiasis- passed stones on his own, shingelles 16 years ago-R shoulder. Last Myocardial Infarction Date:: 2010 History of Any Multi-Drug Resistant Organisms: None Reported Past Surgical History: Heart Catheterization With Stent Additional Past Surgical History / Comment(s): Back injections for pain, piece of metal removed from rt eye, EGD, colonoscopy Past Anesthesia/Blood Transfusion Reactions: No Reported Reaction Additional Past Anesthesia/Blood Transfusion Reaction / Comment(s): claustrophobia Date of Last Stent Placement:: 2010 Past Psychological History: Anxiety, Depression, PTSD Smoking Status: Former smoker Past Alcohol Use History: None Reported Past Drug Use History: None Reported - Past Family History Mother Family Medical History: Cancer Additional Family Medical History / Comment(s): from breast cancer at age 53 Father Family Medical History: Coronary Artery Disease (CAD), Myocardial Infarction (LA) Additional Family Medical History / Comment(s): 4 mi's/CABG. at at age 72 General Exam - General Exam Comments Initial Comments: GENERAL: Patient is well-developed and well-nourished. Patient is nontoxic and well- hydrated and is in moderate distress. ENT: Neck is soft and supple. No significant lymphadenopathy is noted. Oropharynx is clear. Moist mucous membranes. Neck has full range of motion without eliciting any pain. EYES: The sclera were anicteric and conjunctiva were pink and moist. Extraocular movements were intact and pupils were equal round and reactive to light. Eyelids were unremarkable. PULMONARY: Diffuse expiratory wheezing CARDIOVASCULAR: There is a regular rate and rhythm without any murmurs gallops or rubs. ABDOMEN: Soft and nontender with normal bowel sounds. SKIN: Skin is clear with no lesions or rashes and otherwise unremarkable. NEUROLOGIC: Patient is alert and oriented x3. Cranial nerves II through XII are grossly intact. Motor and sensory are also intact. Normal speech, volume and content. Symmetrical smile. MUSCULOSKELETAL: Normal extremities with adequate strength and full range of motion. 1+ edema bilaterally LYMPHATICS: No significant lymphadenopathy is noted PSYCHIATRIC: Normal psychiatric evaluation. Limitations: no limitations Course Vital Signs 04/06/24 04/06/24 04/06/24 14:00 14:15 14:16 Temperature 97.6 F Pulse Rate 93 93 Respiratory 32 H 32 H 32 H Rate Blood Pressure 114/62 O2 Sat by Pulse 83 L 88 L Oximetry 04/06/24 04/06/24 04/06/24 14:20 14:22 14:28 Temperature Pulse Rate 95 96 Respiratory 34 H 32 H Rate Blood Pressure 119/91 103/75 O2 Sat by Pulse 91 L 95 Oximetry 04/06/24 04/06/24 04/06/24 15:00 15:23 16:12 Temperature Pulse Rate 92 92 99 Respiratory 36 H 28 H Rate Blood Pressure 100/80 112/67 O2 Sat by Pulse 98 99 Oximetry 04/06/24 04/06/24 04/06/24 18:28 18:48 19:01 Temperature Pulse Rate 86 71 97 Respiratory 20 Rate Blood Pressure 108/58 O2 Sat by Pulse 100 Oximetry 04/06/24 04/06/24 19:55 20:01 Temperature Pulse Rate 69 74 Respiratory 18 20 Rate Blood Pressure O2 Sat by Pulse Oximetry Procedures - Sepsis Sepsis Focused Exam #1 Time Sepsis Criteria Met: 18:00 Sepsis Focused Exam Date: 04/06/24 Sepsis Focused Exam Time: 19:13 Sepsis Focused Exam Complete: Yes Vital Signs & RN Notes Reviewed: Yes Capillary Refill: < 2 Seconds: Fingers Peripheral Pulses: Normal: Radial (R) Skin Color: Normal for Patient Respiratory Exam: wheezes Cardiovascular Exam: regular rate Medical Decision Making - Medical Decision Making EKG is interpreted by myself. EKG shows a sinus rhythm at 97 bpm AR 155 QRS is 98 QT interval 336 QTc is 390. Patient's EKG shows no ST segment elevation or depression. Was pt. sent in by a medical professional or institution (, PA, FUR SCRAPER, urgent care, hospital, or group home...) When possible be specific @ -No Did you speak to anyone other than the patient for history (EMS, parent, family, police, friend...)? What history was obtained from this source @ -No Did you review nursing and triage notes (agree or disagree)? Why? @ -I reviewed and agree with nursing and triage notes Were old charts reviewed (outside hosp., previous admission, EMS record, old EKG, old radiological studies, urgent care reports/EKG's, group home records)? Report findings @ -No old charts were reviewed Differential Diagnosis? @ -Differential Dyspnea: Coronary syndrome, arrhythmia, tamponade, asthma, COPD, pulmonary embolism, pneumonia, pneumothorax, pulmonary effusion, anaphylaxis, diabetic ketoacidosis, flailed chest, pulmonary contusion, diaphragmatic rupture, anemia, neuromuscular, this is not meant to be an all-inclusive list. EKG interpreted by me (3pts min.). @ -As above X-rays interpreted by me (1pt min.). @ -Chest x-ray shows no acute abnormality. CT interpreted by me (1pt min.). @ -None done U/S interpreted by me (1pt. min.). @ -None done What testing was considered but not performed or refused? (CT, X-rays, U/S, labs)? Why? @ -None What meds were considered but not given or refused? Why? @ -None Did you discuss the management of the patient with other professionals (professionals i.e. , PA, FUR SCRAPER, lab, RT, psych nurse, social services designee, curriculum development specialist, teacher, weapons officer, correctional counselor/case manager)? Give summary @ -I spoke with Dr. Hyatt he agreed to admit the patient admit the patient wrote admitting orders Was smoking cessation discussed for >3mins.? @ -No Was critical care preformed (if so, how long)? @ -No Were there social determinants of health that impacted care today? How? (Homelessness, low income, unemployed, alcoholism, drug addiction, transportation, low edu. Level, literacy, decrease access to med. care, alf, rehab)? @ -No Was there de-escalation of care discussed even if they declined (Discuss DNR or withdrawal of care, Hospice)? DNR status @ -No What co-morbidities impacted this encounter? (DM, HTN, Smoking, COPD, CAD, Cancer, CVA, ARF, Chemo, Hep., AIDS, mental health diagnosis, sleep apnea, morbid obesity)? @ -None Was patient admitted / discharged? Hospital course, mention meds given and route, prescriptions, significant lab abnormalities, going to OR and other pertinent info. @ -Patient is going to be admitted for COPD exacerbation. Patient is wheezing diffusely he did receive 3 breathing treatments in the emergency department as well as some steroids. Patient also started on antibiotics for the elevated white count though no infection was found. Patient will not be hydrated because of the lactic acid because the patient has a history of congestive heart failure. I will do a focused physical exam even though at this time I do not have a source of infection but will do it because of his COPD. Undiagnosed new problem with uncertain prognosis? @ -No Drug Therapy requiring intensive monitoring for toxicity (Heparin, Nitro, Insulin, Cardizem)? @ -No Were any procedures done? @ -No Diagnosis/symptom? @ -Exacerbation of COPD Acute, or Chronic, or Acute on Chronic? @ -Acute Uncomplicated (without systemic symptoms) or Complicated (systemic symptoms)? @ -Complicated Side effects of treatment? @ -No Exacerbation, Progression, or Severe Exacerbation? @ -No Poses a threat to life or bodily function? How? (Chest pain, USA, LA, pneumonia, PE, COPD, DKA, ARF, appy, cholecystitis, CVA, Diverticulitis, Homicidal, Suicidal, threat to staff... and all critical care pts) @ -Yes this could lead to hypoxia and endorgan dysfunction - Lab Data Result diagrams: 04/06/24 14:46 04/06/24 14:46 Lab Results 04/06/24 04/06/24 04/06/24 Range/Units 14:46 14:46 14:46 WBC 16.3 H (3.8-10.6) k/uL RBC 5.03 (4.30-5.90) m/uL Hgb 13.8 (13.0-17.5) gm/dL Hct 43.2 (39.0-53.0) % MCV 85.9 (80.0-100.0) fL MCH 27.4 (25.0-35.0) pg MCHC 31.9 (31.0-37.0) g/dL RDW 14.2 (11.5-15.5) % Plt Count 351 (150-450) k/uL MPV 7.4 Neutrophils % 69 % Lymphocytes % 19 % Monocytes % 9 % Eosinophils % 0 % Basophils % 0 % Neutrophils # 11.2 H (1.3-7.7) k/uL Lymphocytes # 3.2 (1.0-4.8) k/uL Monocytes # 1.4 H (0-1.0) k/uL Eosinophils # 0.1 (0-0.7) k/uL Basophils # 0.1 (0-0.2) k/uL PT 11.4 (10.0-12.5) sec INR 1.0 (<1.2) APTT 20.2 L (22.0-30.0) sec Sodium 133 L (137-145) mmol/L Potassium 4.0 (3.5-5.1) mmol/L Chloride 91 L (98-107) mmol/L Carbon Dioxide 33 H (22-30) mmol/L Anion Gap 9 mmol/L BUN 35 H (9-20) mg/dL Creatinine 1.26 H (0.66-1.25) mg/dL Est GFR (CKD-EPI)AfAm 64 (>60 ml/min/1.73 sqM) Est GFR (CKD-EPI)NonAf 55 (>60 ml/min/1.73 sqM) Glucose 102 H (74-99) mg/dL Lactic Ac Sepsis Rflx Plasma Lactic Acid Sandor (0.7-2.0) mmol/L Calcium 9.2 (8.4-10.2) mg/dL Magnesium 1.9 (1.6-2.3) mg/dL Total Bilirubin 0.7 (0.2-1.3) mg/dL AST 17 (17-59) U/L ALT 16 (4-49) U/L Alkaline Phosphatase 56 (38-126) U/L Troponin I (0.000-0.034) ng/mL NT-Pro-B Natriuret Pep 355 pg/mL Total Protein 6.4 (6.3-8.2) g/dL Albumin 4.0 (3.5-5.0) g/dL 04/06/24 04/06/24 04/06/24 Range/Units 14:46 14:46 15:28 WBC (3.8-10.6) k/uL RBC (4.30-5.90) m/uL Hgb (13.0-17.5) gm/dL Hct (39.0-53.0) % MCV (80.0-100.0) fL MCH (25.0-35.0) pg MCHC (31.0-37.0) g/dL RDW (11.5-15.5) % Plt Count (150-450) k/uL MPV Neutrophils % % Lymphocytes % % Monocytes % % Eosinophils % % Basophils % % Neutrophils # (1.3-7.7) k/uL Lymphocytes # (1.0-4.8) k/uL Monocytes # (0-1.0) k/uL Eosinophils # (0-0.7) k/uL Basophils # (0-0.2) k/uL PT (10.0-12.5) sec INR (<1.2) APTT (22.0-30.0) sec Sodium (137-145) mmol/L Potassium (3.5-5.1) mmol/L Chloride (98-107) mmol/L Carbon Dioxide (22-30) mmol/L Anion Gap mmol/L BUN (9-20) mg/dL Creatinine (0.66-1.25) mg/dL Est GFR (CKD-EPI)AfAm (>60 ml/min/1.73 sqM) Est GFR (CKD-EPI)NonAf (>60 ml/min/1.73 sqM) Glucose (74-99) mg/dL Lactic Ac Sepsis Rflx Y Plasma Lactic Acid Sandor 4.8 H* (0.7-2.0) mmol/L Calcium (8.4-10.2) mg/dL Magnesium (1.6-2.3) mg/dL Total Bilirubin (0.2-1.3) mg/dL AST (17-59) U/L ALT (4-49) U/L Alkaline Phosphatase (38-126) U/L Troponin I 0.017 (0.000-0.034) ng/mL NT-Pro-B Natriuret Pep pg/mL Total Protein (6.3-8.2) g/dL Albumin (3.5-5.0) g/dL 04/06/24 04/06/24 Range/Units 17:44 18:31 WBC (3.8-10.6) k/uL RBC (4.30-5.90) m/uL Hgb (13.0-17.5) gm/dL Hct (39.0-53.0) % MCV (80.0-100.0) fL MCH (25.0-35.0) pg MCHC (31.0-37.0) g/dL RDW (11.5-15.5) % Plt Count (150-450) k/uL MPV Neutrophils % % Lymphocytes % % Monocytes % % Eosinophils % % Basophils % % Neutrophils # (1.3-7.7) k/uL Lymphocytes # (1.0-4.8) k/uL Monocytes # (0-1.0) k/uL Eosinophils # (0-0.7) k/uL Basophils # (0-0.2) k/uL PT (10.0-12.5) sec INR (<1.2) APTT (22.0-30.0) sec Sodium (137-145) mmol/L Potassium (3.5-5.1) mmol/L Chloride (98-107) mmol/L Carbon Dioxide (22-30) mmol/L Anion Gap mmol/L BUN (9-20) mg/dL Creatinine (0.66-1.25) mg/dL Est GFR (CKD-EPI)AfAm (>60 ml/min/1.73 sqM) Est GFR (CKD-EPI)NonAf (>60 ml/min/1.73 sqM) Glucose (74-99) mg/dL Lactic Ac Sepsis Rflx Y Plasma Lactic Acid Sandor 2.3 H* (0.7-2.0) mmol/L Calcium (8.4-10.2) mg/dL Magnesium (1.6-2.3) mg/dL Total Bilirubin (0.2-1.3) mg/dL AST (17-59) U/L ALT (4-49) U/L Alkaline Phosphatase (38-126) U/L Troponin I (0.000-0.034) ng/mL NT-Pro-B Natriuret Pep pg/mL Total Protein (6.3-8.2) g/dL Albumin (3.5-5.0) g/dL Critical Care Time Critical Care Time: Yes Total Critical Care Time: 35 Disposition Clinical Impression: COPD with acute exacerbation Disposition: ADMITTED IP TO THIS [facility] Time of Disposition: 19:10
[2024-04-06 14:56] LABS: Basophils # (A) 0.1 k/uL (0-0.2); Basophils % (A) 0 %; Eosinophils # (A) 0.1 k/uL (0-0.7); Eosinophils % (A) 0 %; HCT 43.2 % (39.0-53.0); HGB 13.8 gm/dL (13.0-17.5); Lymphocytes # (A) 3.2 k/uL (1.0-4.8); Lymphocytes % (A) 19 %; MCH 27.4 pg (25.0-35.0); MCHC 31.9 g/dL (31.0-37.0); MCV 85.9 fL (80.0-100.0); Mean Platelet Volume 7.4; Monocytes # (A) 1.4 k/uL (0-1.0); Monocytes % (A) 9 %; Neutrophils # (A) 11.2 k/uL (1.3-7.7); Neutrophils % (A) 69 %; Platelet Count 351 k/uL (150-450); RBC 5.03 m/uL (4.30-5.90); RDW 14.2 % (11.5-15.5); WBC 16.3 k/uL (3.8-10.6)
--- NOTE | 2024-04-06 14:59 | XR ---
EXAMINATION TYPE: XR chest 2V DATE OF EXAM: 04/06/2024 2:51 PM COMPARISON: Chest radiographs from 03/17/2024, CT chest 03/17/2024 TECHNIQUE: XR chest 2V Frontal and lateral views of the chest. CLINICAL INDICATION:Male, 78 years old with history of difficulty breathing; FINDINGS: Lungs/Pleura: There is flattening of the diaphragm with increased lucency of the lungs. No evidence o f pneumothorax, pleural effusion or focal consolidation. Pulmonary vascularity: Unremarkable. Heart/mediastinum: Cardiomediastinal silhouette is prominent in size and stable. Musculoskeletal: Multiple level degenerative disc disease changes seen throughout the spine. IMPRESSION: 1. No acute cardiopulmonary disease process. 2. COPD changes. [facility], , 04/06/2024 2:56 PM
[2024-04-06] MEDS: IPRATROPIUM 0.5 MG/2.5 ML NEBU INHALATION STA ×2 (15:00→18:48)
[2024-04-06] MEDS: ALBUTEROL NEBULIZED 2.5 MG/3 ML INHALATION STA ×2 (15:00→18:48)
[2024-04-06] MEDS: methylPREDNISolone SOD SUCCI 125 MG/2 ML VIAL IV STA (15:07)
[2024-04-06 15:11] LABS: ALT 16 U/L (4-49); AST 17 U/L (17-59); African American GFR (CKD) 64 (>60 ml/min/1.73 sqM); Alkaline Phosphatase 56 U/L (38-126); Anion Gap 9 mmol/L; Blood Urea Nitrogen 35 mg/dL (9-20); Calcium 9.2 mg/dL (8.4-10.2); Carbon Dioxide 33 mmol/L (22-30); Chloride 91 mmol/L (98-107); Glucose 102 mg/dL (74-99); Magnesium 1.9 mg/dL (1.6-2.3); Non-African American GFR(CKD) 55 (>60 ml/min/1.73 sqM); Sodium 133 mmol/L (137-145); Total Bilirubin 0.7 mg/dL (0.2-1.3); Total Protein 6.4 g/dL (6.3-8.2)
[2024-04-06 15:17] LABS: Prothrombin Time 11.4 sec (10.0-12.5)
[2024-04-06 15:18] LABS: NT-Pro-B-Type Natriuretic Pept 355 pg/mL
[2024-04-06 15:20] LABS: Partial Thromboplastin Time 20.2 sec (22.0-30.0)
[2024-04-06] MEDS ORDERED: NALOXONE 0.4 MG/ML 1 ML VIAL IVP PRN (19:11)
[2024-04-06] MEDS: IPRATROPIUM-ALBUTEROL 3 ML NEB INHALATION SCH (19:55)
[2024-04-06] MEDS ORDERED: DEXTROSE 50% SYRINGE 50 ML IVP PRN ×2 (20:15)
[2024-04-06 21:10] LABS: Glucose,Whole Blood 214 mg/dL (70-110)
[2024-04-06] MEDS: METOPROLOL TARTRATE 25 MG TAB PO SCH (21:18)
[2024-04-06] MEDS: AMOXIC-POT CLAV 875-125MG 1 EACH TAB PO SCH (21:18)
[2024-04-06] MEDS: GABAPENTIN 100 MG CAP PO SCH (21:18)
[2024-04-06] MEDS: ATORVASTATIN 20 MG TAB PO SCH (21:18)
[2024-04-06] MEDS: INSULIN ASPART (NovoLOG) 100 UNIT/ML VIAL SQ SCH (21:19)
[2024-04-06] MEDS: SYMBICORT 160-4.5 MCG INHALER INHALATION SCH (21:31)
[2024-04-07] MEDS: methylPREDNISolone SOD SUCCI 125 MG/2 ML VIAL IV SCH (00:03)
--- NOTE | 2024-04-07 00:14 | P.HPIM ---
History of Present Illness H&P Date: 04/06/24 Chief Complaint: Shortness of breath Patient is a 78 year old male with COPD on 3L home oxygen, GERD, [id number] diabetes mellitus, pulmonary embolism, hyperlipidemia, hypertension, CHF(unknown EF), [place] with heart catheterisation and stent placement and a hospitalisation for peumonia who presented to the ED with shortness of breath. Patient reports shortness of breath started 3-4 weeks ago. He was then admitted at [facility]. At the time he also experienced fever and chills and was diagnosed with pneumonia. He was admitted for 4 days and was discharged yesterday. Upon discharge, when he went home, he became short of breath while walking from his bathroom to the kitchen. He also complains of a chronic productive cough, with yellowish-white sputum production. Denies hemoptysis. Patient mentions using oxygen at home, usually at night at 3 L. He does mention of long history of COPD and CHF but states that his shortness of breath has been worsening lately and that he cannot go without oxygen at all which is bothersome for him. Additionally, he reports having a low stream of urine. Denies being on Flomax at home. Moreover, he states having pulmonary embolism as well as heart catheterization with stent placement in the past and currently is on Plavix at home. Denies fever, chills, chest pain, palpitations, abdominal pain, nausea, v omiting, hematuria, dysuria, hematochezia, melena, headache, slurred speech, numbness, tingling. ED documentation reviewed. In the ED patient was treated with nebulized albuterol, ceftriaxone 1 g, DuoNeb, Solu-Medrol 125 mg. Vitals on admission T 97.6 F, IN 93 bpm, RR 32, BP 114/62, O2 sat 83% on room air EKG independently interpreted as sinus rhythm, rate 97 bpm, QTc 390 ms CXR shows no acute cardiopulmonary disease/process. COPD changes Labs on admission show WBC 16.3, APTT 20.2, sodium 133, bicarb 33, BUN 35, creatinine 1.26, lactic acid 4.8 Troponin I 0.017, proBNP 355 Review of systems: Pertinent positives and negatives as discussed in HPI, a complete review of systems was performed and all other systems are negative. Social history: Tobacco: Former smoker,quit 15 years ago Alcohol: Former alcohol abuse, quit 15 years ago Recreational drugs: Denies use Travel: No recent travel history Sick contacts: None Physical examination: Vital signs reviewed General: moderate distress, appears at stated age, obese Derm: warm, dry, intact Head: atraumatic, normocephalic, symmetric Eyes: EOMI, anicteric sclera Mouth: no lip lesion, mucus membranes moist Cardiovascular: S1 S2 reg, no murmur Lungs: wheezing b/l Abdominal: soft, non-tender to palpation Extremities: pitting edema in b/l LE Neuro: Alert, Oriented, strength 5/5 in all 4 extremities Psych: well appearing, appropriate affect Assessment/Plan: Patient is a 78 year old male with COPD on 3L home oxygen, pulmonary embolism, CHF(unknown EF) and a recent hospitalization for pneumonia who presented to the ED with shortness of breath. He has been admitted for acute on chronic hypoxic respiratory failure secondary to COPD exacerbation. Active: #. Acute on chronic hypoxic respiratory failure, secondary to COPD exacerbation #. Acute COPD exacerbation #. Recent hospitalization for pneumonia #. Leukocytosis, possibly reactive to steroids CXR shows no acute cardiopulmonary disease/process. COPD changes Solumedrol 125 mg IV once in the ED Continue Supplemental oxygen, currently on 4L via nasal cannula Continue Solumedrol 60 mg IV Q6HR, Duoneb 3ml inhalation QID and Q2H PRN, Symbicort 2 puffs BID, Spiriva 2 puffs daily, S/p ceftriaxone 1 g IVPB once in the ED continue Augmentin [id number] 1 each p.o. every 12 hours started in the ED Obtain respiratory panel and procalcitonin Blood cultures pending Monitor CBC Consult pulmnology patient was recently discharged from our facility 2 weeks ago on tapering dose of medrol dose pack #. FABIENNE, likely prerenal #. PMH of urinary retention Elevated Creatinine on admission 1.26 Obtain UA Bladder scan Monitor BMP normal saline 75 cc per hour #. Lactic acidosis, improving Elevated Lactic acid on admission: 4.8, trended down to 2.3 Trend lactic acid until normalizes #. Mild Hyponatremia, hypervolemic Low sodium on admission: 133 Monitor BMP Chronic: #. Congestive Heart Failure, unknown EF, not in exacerbation #. History of CAD, heart catheterisation and stent placement #. Hypertension #. Hyperlipidemia Continue home meds clopidogrel 75 mg p.o. daily, aspirin 81 mg p.o. daily, ator vastatin 20 mg p.o. HS, hold lisinopril 2.5 mg p.o.due to FABIENNE , metoprolol tartrate 25 mg p.o. twice daily, hold spironolactone due to FABIENNE #. Non insulin dependent diabetes mellitus Hold home med Metformin Insulin sliding scale and blood glucose monitoring #. GERD Continue home med pantoprazole 40 mg p.o. daily #. Neuropathy Continue home med Gabapentin 100 mg PO BID #. Peripheral arterial disease, chronic Patient follows up with Vascular surgery outpatient #. History of b/l PE Not on any blood thinners at home F: None E: Replete as required N: Heart healthy diet DVT prophylaxis: Lovenox 40 mg SQ daily GI prophylaxis: Pantoprazole 40 mg PO daily The patient is admitted with an anticipated more than 2 midnight stay for evaluation of shortness of breath CODE STATUS: FULL CODE Discussed with: Patient Anticipated discharge place: Home I have seen and evaluated the patient today. I Discussed the case with the resident and agree with the resident's findings I edited the assessment and plan as necessary as documented in the resident's note. Past Medical History Past Medical History: Coronary Artery Disease (CAD), COPD, GERD/Reflux, Hyperlipidemia, Hypertension, Myocardial Infarction ([place]), Pulmonary Embolus ( [place]), Renal Disease Additional Past Medical History / Comment(s): Home oxygen prn and pt states he usually wears at night at 2.5 liters, bilateral PEs in 2003, ETOH abuse-pt st ates he has never had withdrawal symptoms, chronic low back pain/sciatica/spurs/disc disease much improved after back injections, past urinary retention, diverticulitis/benign colon polyps removed, nephrolithiasis- passed stones on his own, shingelles 16 years ago-R shoulder. Last Myocardial Infarction Date:: 2010 History of Any Multi-Drug Resistant Organisms: None Reported Past Surgical History: Heart Catheterization With Stent Additional Past Surgical History / Comment(s): Back injections for pain, piece of metal removed from rt eye, EGD, colonoscopy Past Anesthesia/Blood Transfusion Reactions: No Reported Reaction Additional Past Anesthesia/Blood Transfusion Reaction / Comment(s): claustrophobia Date of Last Stent Placement:: 2010 Past Psychological History: Anxiety, Depression, PTSD Smoking Status: Former smoker Past Alcohol Use History: None Reported Past Drug Use History: None Reported - Past Family History Mother Family Medical History: Cancer Additional Family Medical History / Comment(s): from breast cancer at age 5 3 Father Family Medical History: Coronary Artery Disease (CAD), Myocardial Infarction ([place]) Additional Family Medical History / Comment(s): 4 mi's/CABG. at at age 72 Medications and Allergies Home Medications Medication Instructions Recorded Confirmed Type Aspirin EC [Ecotrin Low Dose] 81 mg PO DAILY 06/22/18 04/06/24 History Budesonide/Formoterol Fumarate 2 puff INHALATION RT-BID 06/22/18 04/06/24 History [Symbicort 160-4.5 Mcg Inhaler] Ipratropium/Albuterol Sulfate 1 puff INHALATION RT-QID 06/22/18 04/06/24 History [Combivent Respimat Inhaler] Metoprolol Tartrate [Lopressor] 25 mg PO BID 06/22/18 04/06/24 History Spironolactone 25 mg PO DAILY 06/22/18 04/06/24 History lisinopriL [Zestril] 2.5 mg PO HS 06/22/18 04/06/24 History Clopidogrel Bisulfate [Plavix] 75 mg PO DAILY 07/01/18 04/06/24 History Albuterol Inhaler [Ventolin Hfa 2 puff INHALATION RT-Q6H PRN 12/07/19 04/06/24 History Inhaler] Albuterol Nebulized [Ventolin 2.5 mg INHALATION RT-QID 12/07/19 04/06/24 History Nebulized] Loratadine [Claritin] 10 mg PO DAILY 12/07/19 04/06/24 History Simvastatin [Zocor] 40 mg PO HS 12/07/19 04/06/24 History Tiotropium 18 Mcg/Puff [Spiriva] 2 puff INHALATION RT-DAILY 12/07/19 04/06/24 History Cholecalciferol [Vitamin D3 (25 25 mcg PO BID 03/17/24 04/06/24 History Mcg = 1000 Iu)] Furosemide [Lasix] 40 mg PO DAILY 03/17/24 04/06/24 History Ferrous Sulfate [Feosol] 325 mg PO DIRECTED 04/06/24 04/06/24 History Folic Acid 1 mg PO DIRECTED 04/06/24 04/06/24 History Gabapentin [Neurontin] 100 mg PO DIRECTED 04/06/24 04/06/24 History Pantoprazole [Protonix] 40 mg PO DIRECTED 04/06/24 04/06/24 History Vitamin B-12 50mcg 50 mcg PO DIRECTED 04/06/24 04/06/24 History metFORMIN HCL 500 mg PO DIRECTED 04/06/24 04/06/24 History predniSONE [Deltasone] 40 mg PO DIRECTED 04/06/24 04/06/24 History Allergies Allergy/AdvReac Type Severity Reaction Status Date / Time fluticasone AdvReac Nausea Verified 04/06/24 14:00 [From Wix[facility]] levofloxacin [From Levaquin] AdvReac TENDON PAIN Verified 04/06/24 14:00 salmeterol AdvReac Nausea Verified 04/06/24 14:00 [From [email or web address]] Physical Exam Vitals: Vital Signs Temp Pulse Resp BP Pulse Ox 04/06/24 19:01 97 04/06/24 18:48 71 04/06/24 18:28 86 20 108/58 100 04/06/24 16:12 99 28 H 112/67 99 04/06/24 15:23 92 04/06/24 15:00 92 36 H 100/80 98 04/06/24 14:28 96 32 H 103/75 95 04/06/24 14:22 91 L 04/06/24 14:20 95 34 H 119/91 04/06/24 14:16 32 H 04/06/24 14:15 93 32 H 88 L 04/06/24 14:00 97.6 F 93 32 H 114/62 83 L Intake and Output 04/06/24 04/06/24 04/06/24 06:59 14:59 22:59 Other: Weight 106.594 kg Results CBC & Chem 7: 04/06/24 14:46 04/06/24 14:46 Labs: Abnormal Lab Results - Last 24 Hours (Table) 04/06/24 04/06/24 04/06/24 Range/Units 14:46 14:46 14:46 WBC 16.3 H (3.8-10.6) k/uL Neutrophils # 11.2 H (1.3-7.7) k/uL Monocytes # 1.4 H (0-1.0) k/uL APTT 20.2 L (22.0-30.0) sec Sodium 133 L (137-145) mmol/L Chloride 91 L (98-107) mmol/L Carbon Dioxide 33 H (22-30) mmol/L BUN 35 H (9-20) mg/dL Creatinine 1.26 H (0.66-1.25) mg/dL Glucose 102 H (74-99) mg/dL Plasma Lactic Acid Sandor (0.7-2.0) mmol/L 04/06/24 04/06/24 Range/Units 14:46 17:44 WBC (3.8-10.6) k/uL Neutrophils # (1.3-7.7) k/uL Monocytes # (0-1.0) k/uL APTT (22.0-30.0) sec Sodium (137-145) mmol/L Chloride (98-107) mmol/L Carbon Dioxide (22-30) mmol/L BUN (9-20) mg/dL Creatinine (0.66-1.25) mg/dL Glucose (74-99) mg/dL Plasma Lactic Acid Sandor 4.8 H* 2.3 H* (0.7-2.0) mmol/L
[2024-04-07 04:41] LABS: HCT 38.1 % (39.0-53.0); HGB 12.5 gm/dL (13.0-17.5); MCH 27.4 pg (25.0-35.0); MCHC 32.8 g/dL (31.0-37.0); MCV 83.5 fL (80.0-100.0); Mean Platelet Volume 7.6; Platelet Count 275 k/uL (150-450); RBC 4.56 m/uL (4.30-5.90); RDW 14.3 % (11.5-15.5); WBC 10.1 k/uL (3.8-10.6)
[2024-04-07 04:59] LABS: African American GFR (CKD) 88 (>60 ml/min/1.73 sqM); Anion Gap 2 mmol/L; Blood Urea Nitrogen 33 mg/dL (9-20); Calcium 8.7 mg/dL (8.4-10.2); Carbon Dioxide 31 mmol/L (22-30); Chloride 96 mmol/L (98-107); Glucose 153 mg/dL (74-99); Non-African American GFR(CKD) 76 (>60 ml/min/1.73 sqM); Potassium 4.6 mmol/L (3.5-5.1); Sodium 129 mmol/L (137-145)
--- NOTE | 2024-04-07 05:00 | P.CNPUL ---
History of Present Illness Consult date: 04/07/24 Requesting physician: Adilia Rosario Reason for consult: COPD Chief complaint: Shortness of breath History of present illness: Patient is a 78-year-old male with past medical history significant for COPD, chronic oxygen dependence, hyperlipidemia, hypertension, PAD, heart failure, among other things. Patient does follow in the pulmonary office with Dr. Vargas for management of his very severe COPD. He has an FEV1 29% of predicted. He is normally maintained on oxygen at 3l liters per minute just at night, however, his oxygen concentrator is not working. He is currently maintained on a combination of the Breyna, Spiriva, and albuterol nebs around the clock. Of note, patient reportedly was recently discharged from [facility] with a diagnosis of pneumonia. Discharged reportedly yesterday. Less than 24 hours later patient reporting severe difficulty in breathing. Asso ciated with wheezing and a mild nonproductive cough. Denies rhinorrhea, post- nasal drip, sore throat, sinus congestion or pressure. Denies any sputum production, fevers, chills, chest pain, hemoptysis. Denies nausea, vomiting, diarrhea. Reportedly has history of heart failure. Denies any increased weight gain, lower extremity swelling, orthopnea, PND. Does take Lasix on an outpatient basis. Chest x-ray done arrival does not show any acute cardiopulmonary process. CBC: WBC count 16.3, hemoglobin 13.8, hematocrit 43.2, platelets 351. CMP: Sodium 133, potassium 4, chloride 91, serum bicarb 33, BUN 35, creatinine 1.26, glucose 102. Lactic 3.9 and down to 1.6. LFTs unremarkable. Troponin 0.017. NT proBNP 355. EKG: Normal sinus rhythm, rate 97 bpm, mild diffuse ST depressions. I am evaluating this patient on the cardiac stepdown unit. He was admitted with acute COPD exacerbation. He is currently on 4 L/min nasal cannula. Appears mildly dyspneic at rest. Has a intermittent cough. Nonproductive. Faint expiratory wheezes heard on auscultation. He is already been started on a combination of DuoNebs, IV Solu-Medrol, and Symbicort inhaler. Also, empirically covered on Augmentin. He is looking forward to going home, once home O2 is made available again. Review of Systems Constitutional: Reports fatigue, Denies chills, Denies fever, Denies lethargy, Denies poor appetite, Denies weight gain, Denies weight loss Ears, nose, mouth and throat: Denies headache, Denies nasal congestion, Denies nasal discharge, Denies post-nasal drip, Denies sinus pain, Denies sinus pressure, Denies sore throat Cardiovascular: Reports dyspnea on exertion, Denies chest pain, Denies leg edema, Denies lightheadedness, Denies orthopnea, Denies palpitations, Denies paroxysmal nocturnal dyspnea, Denies syncope Respiratory: Reports cough, Reports dyspnea, Reports home oxygen, Reports wheezing, Denies congestion, Denies cough with sputum, Denies excessive sputum, Denies hemoptysis Gastrointestinal: Denies abdominal pain, Denies change in bowel habits, Denies loss of appetite, Denies nausea, Denies vomiting Genitourinary: Denies dysuria Musculoskeletal: Denies limitation of motion Integumentary: Denies rash Neurological: Denies seizures, Denies syncope Psychiatric: Denies anxiety, Denies depression Past Medical History Past Medical History: Coronary Artery Disease (CAD), COPD, GERD/Reflux, Hyperlipidemia, Hypertension, Myocardial Infarction ([place]), Pulmonary Embolus ([place]), Renal Disease Additional Past Medical History / Comment(s): Home oxygen prn and pt states he usually wears at night at 2.5 liters, bilateral PEs in 2003, ETOH abuse-pt states he has never had withdrawal symptoms, chronic low back pain/sciatica/spurs/disc disease much improved after back injections, past urinary retention, diverticulitis/benign colon polyps removed, nephrolithiasis- passed stones on his own, shingelles 16 years ago-R shoulder. Last Myocardial Infarction Date:: 2010 History of Any Multi-Drug Resistant Organisms: None Reported Past Surgical History: Heart Catheterization With Stent Additional Past Surgical History / Comment(s): Back injections for pain, piece of metal removed from rt eye, EGD, colonoscopy Past Anesthesia/Blood Transfusion Reactions: No Reported Reaction Additional Past Anesthesia/Blood Transfusion Reaction / Comment(s): claustrophobia Date of Last Stent Placement:: 2010 Past Psychological History: Anxiety, Depression, PTSD Smoking Status: Former smoker Past Alcohol Use History: None Reported Past Drug Use History: None Reported - Past Family History Mother Family Medical History: Cancer Additional Family Medical History / Comment(s): from breast cancer at age 53 Father Family Medical History: Coronary Artery Disease (CAD), Myocardial Infarction ([place]) Additional Family Medical History / Comment(s): 4 mi's/CABG. at at age 72 Medications and Allergies Home Medications Medication Instructions Recorded Confirmed Type Aspirin EC [Ecotrin Low Dose] 81 mg PO DAILY 06/22/18 04/06/24 History Budesonide/Formoterol Fumarate 2 puff INHALATION RT-BID 06/22/18 04/06/24 History [Symbicort 160-4.5 Mcg Inhaler] Ipratropium/Albuterol Sulfate 1 puff INHALATION RT-QID 06/22/18 04/06/24 History [Combivent Respimat Inhaler] Metoprolol Tartrate [Lopressor] 25 mg PO BID 06/22/18 04/06/24 History Spironolactone 25 mg PO DAILY 06/22/18 04/06/24 History lisinopriL [Zestril] 2.5 mg PO HS 06/22/18 04/06/24 History Clopidogrel Bisulfate [Plavix] 75 mg PO DAILY 07/01/18 04/06/24 History Albuterol Inhaler [Ventolin Hfa 2 puff INHALATION RT-Q6H PRN 12/07/19 04/06/24 History Inhaler] Albuterol Nebulized [Ventolin 2.5 mg INHALATION RT-QID 12/07/19 04/06/24 History Nebulized] Loratadine [Claritin] 10 mg PO DAILY 12/07/19 04/06/24 History Simvastatin [Zocor] 40 mg PO HS 12/07/19 04/06/24 History Tiotropium 18 Mcg/Puff [Spiriva] 2 puff INHALATION RT-DAILY 12/07/19 04/06/24 History Cholecalciferol [Vitamin D3 (25 25 mcg PO BID 03/17/24 04/06/24 History Mcg = 1000 Iu)] Furosemide [Lasix] 40 mg PO DAILY 03/17/24 04/06/24 History Ferrous Sulfate [Feosol] 325 mg PO DIRECTED 04/06/24 04/06/24 History Folic Acid 1 mg PO DIRECTED 04/06/24 04/06/24 History Gabapentin [Neurontin] 100 mg PO DIRECTED 04/06/24 04/06/24 History Pantoprazole [Protonix] 40 mg PO DIRECTED 04/06/24 04/06/24 History Vitamin B-12 50mcg 50 mcg PO DIRECTED 04/06/24 04/06/24 History metFORMIN HCL 500 mg PO DIRECTED 04/06/24 04/06/24 History predniSONE [Deltasone] 40 mg PO DIRECTED 04/06/24 04/06/24 History Allergies Allergy/AdvReac Type Severity Reaction Status Date / Time fluticasone AdvReac Nausea Verified 04/06/24 14:00 [From [facility]] levofloxacin [From Levaquin] AdvReac TENDON PAIN Verified 04/06/24 14:00 salmeterol AdvReac Nausea Verified 04/06/24 14:00 [From [facility]] Physical Exam Vitals: Vital Signs Temp Pulse Pulse Resp BP BP Pulse Ox 04/07/24 02:00 20 04/06/24 23:00 98.0 F 87 20 120/67 98 04/06/24 21:52 90 18 109/64 97 04/06/24 20:01 74 20 04/06/24 19:55 69 18 04/06/24 19:01 97 04/06/24 18:48 71 04/06/24 18:28 86 20 108/58 100 04/06/24 16:12 99 28 H 112/67 99 04/06/24 15:23 92 04/06/24 15:00 92 36 H 100/80 98 04/06/24 14:28 96 32 H 103/75 95 04/06/24 14:22 91 L 04/06/24 14:20 95 34 H 119/91 04/06/24 14:16 32 H 04/06/24 14:15 93 32 H 88 L 04/06/24 14:00 97.6 F 93 32 H 114/62 83 L Intake and Output 04/06/24 04/06/24 04/07/24 14:59 22:59 06:59 Other: Voiding Method Urinal Weight 106.594 kg 106.594 kg GENERAL EXAM: Alert, 78-year-old obese male, laying on his left lateral side, on 4 L/min nasal cannula, mildly dyspneic. s. HEAD: Normocephalic and atraumatic EYES: Normal reaction of pupils, equal size. NOSE: Clear with pink turbinates. THROAT: No erythema or exudates. NECK: No masses, no JVD. CHEST: No chest wall deformity. LUNGS: Equal air entry with faint expiratory wheezes heard bilaterally and throughout. On 4 L/min nasal cannula. Speaking in short phrases. CVS: S1 and S2 diminished with no audible murmur, regular rhythm. No extra heart sounds ABDOMEN: No hepatosplenomegaly, active bowel sounds, no guarding or rigidity. SPINE: No scoliosis or deformity SKIN: No rashes CENTRAL NERVOUS SYSTEM: No focal deficits, tone is normal in all 4 extremities. EXTREMITIES: There is mild bipedal edema. No clubbing, or cyanosis. Weak peripheral pulses are intact. Results - Laboratory Findings CBC and BMP: 04/07/24 04:05 04/06/24 14:46 ABG WBC 16.3 k/uL (3.8-10.6) H 04/06/24 14:46 RBC 5.03 m/uL (4.30-5.90) 04/06/24 14:46 Hgb 13.8 gm/dL (13.0-17.5) 04/06/24 14:46 Hct 43.2 % (39.0-53.0) 04/06/24 14:46 MCV 85.9 fL (80.0-100.0) 04/06/24 14:46 MCH 27.4 pg (25.0-35.0) 04/06/24 14:46 MCHC 31.9 g/dL (31.0-37.0) 04/06/24 14:46 RDW 14.2 % (11.5-15.5) 04/06/24 14:46 Plt Count 351 k/uL (150-450) 04/06/24 14:46 MPV 7.4 04/06/24 14:46 Neutrophils % 69 % 04/06/24 14:46 Lymphocytes % 19 % 04/06/24 14:46 Monocytes % 9 % 04/06/24 14:46 Eosinophils % 0 % 04/06/24 14:46 Basophils % 0 % 04/06/24 14:46 Neutrophils # 11.2 k/uL (1.3-7.7) H 04/06/24 14:46 Lymphocytes # 3.2 k/uL (1.0-4.8) 04/06/24 14:46 Monocytes # 1.4 k/uL (0-1.0) H 04/06/24 14:46 Eosinophils # 0.1 k/uL (0-0.7) 04/06/24 14:46 Basophils # 0.1 k/uL (0-0.2) 04/06/24 14:46 PT 11.4 sec (10.0-12.5) 04/06/24 14:46 INR 1.0 (<1.2) 04/06/24 14:46 APTT 20.2 sec (22.0-30.0) L 04/06/24 14:46 Sodium 133 mmol/L (137-145) L 04/06/24 14:46 Potassium 4.0 mmol/L (3.5-5.1) 04/06/24 14:46 Chloride 91 mmol/L (98-107) L 04/06/24 14:46 Carbon Dioxide 33 mmol/L (22-30) H 04/06/24 14:46 Anion Gap 9 mmol/L 04/06/24 14:46 BUN 35 mg/dL (9-20) H 04/06/24 14:46 Creatinine 1.26 mg/dL (0.66-1.25) H 04/06/24 14:46 Est GFR (CKD-EPI)AfAm 64 (>60 ml/min/1.73 sqM) 04/06/24 14:46 Est GFR (CKD-EPI)NonAf 55 (>60 ml/min/1.73 sqM) 04/06/24 14:46 Glucose 102 mg/dL (74-99) H 04/06/24 14:46 POC Glucose (mg/dL) 214 mg/dL (70-110) H 04/06/24 21:09 POC Glu [employer] Officer ID Hannah Burkssten 04/06/24 21:09 Lactic Ac Sepsis Rflx Y 04/06/24 23:12 Plasma Lactic Acid Sandor 1.6 mmol/L (0.7-2.0) 04/07/24 01:22 Calcium 9.2 mg/dL (8.4-10.2) 04/06/24 14:46 Magnesium 1.9 mg/dL (1.6-2.3) 04/06/24 14:46 Total Bilirubin 0.7 mg/dL (0.2-1.3) 04/06/24 14:46 AST 17 U/L (17-59) 04/06/24 14:46 ALT 16 U/L (4-49) 04/06/24 14:46 Alkaline Phosphatase 56 U/L (38-126) 04/06/24 14:46 Troponin I 0.017 ng/mL (0.000-0.034) 04/06/24 14:46 NT-Pro-B Natriuret Pep 355 pg/mL 04/06/24 14:46 Total Protein 6.4 g/dL (6.3-8.2) 04/06/24 14:46 Albumin 4.0 g/dL (3.5-5.0) 04/06/24 14:46 PT/INR, D-dimer PT 11.4 sec (10.0-12.5) 04/06/24 14:46 INR 1.0 (<1.2) 04/06/24 14:46 Abnormal lab findings: Abnormal Labs 04/06/24 04/06/24 04/06/24 14:46 14:46 14:46 WBC 16.3 H Neutrophils # 11.2 H Monocytes # 1.4 H APTT 20.2 L Sodium 133 L Chloride 91 L Carbon Dioxide 33 H BUN 35 H Creatinine 1.26 H Glucose 102 H POC Glucose (mg/dL) Plasma Lactic Acid Sandor 04/06/24 04/06/24 04/06/24 14:46 17:44 21:09 WBC Neutrophils # Monocytes # APTT Sodium Chloride Carbon Dioxide BUN Creatinine Glucose POC Glucose (mg/dL) 214 H Plasma Lactic Acid Sandor 4.8 H* 2.3 H* 04/06/24 21:15 WBC Neutrophils # Monocytes # APTT Sodium Chloride Carbon Dioxide BUN Creatinine Glucose POC Glucose (mg/dL) Plasma Lactic Acid Sandor 3.9 H* - Diagnostic Findings Chest x-ray: image reviewed Assessment and Plan Assessment: Acute COPD exacerbation; chest x-ray does not show any acute cardiopulmonary process, including focal infiltrates or evidence of pneumonia. Acute on top of chronic hypoxemic respiratory failure, secondary to above Acute leukocytosis, possibly reactive to steroids that he received during his recent hospitalization Acute kidney injury, creatinine 1.26 Lactic acidemia, improved History of heart failure, with unknown ejection fraction History of hyperlipidemia History of hypertension History of CAD History of peripheral arterial disease Very severe chronic obstructive pulmonary disease, with an FEV1 29% of predicted, normally maintained on a combination of Breyna, Spiriva, albuterol nebs [id number] Chronic hypoxemic respiratory failure, secondary to above, normally oxygen dependent on 3 L/min nasal cannula at bedtime Former tobacco dependence, quit smoking over 15 years ago Obesity, with a BMI of 35.7 kg/m Plan: Patient's medications, labs, chest x-ray reviewed Continue supplemental oxygen maintain oxygen saturation of 90% or greater Patient's oxygen concentrator no longer works at home, will need supplemental oxygen on discharge Continue combination of bronchodilators, Symbicort inhaler, and IV Solu-Medrol Continue Augmentin Check Cepheid 4 Plex We Will continue to follow I have personally seen and examined the patient, performed the documentation and the assessment and plan as written. Number of minutes spent on the visit:20 Time with Patient: Greater than 30
[2024-04-07 06:13] LABS: Glucose,Whole Blood 127 mg/dL (70-110)
[2024-04-07] MEDS: PANTOPRAZOLE 40 MG TABLET PO SCH (06:46)
[2024-04-07] MEDS: SODIUM CHLORIDE 0.9% 1,000 ML IV SCH (06:47)
[2024-04-07] MEDS ORDERED: metFORMIN 500 MG TAB PO SCH (07:30)
[2024-04-07] MEDS ORDERED: NON FORMULARY DRUG (Tiotropium 18 Mcg/Puff 1 PUFF Inhaler) INHALATION SCH (08:00)
[2024-04-07] MEDS ORDERED: FUROSEMIDE 40 MG TAB PO SCH (09:00)
[2024-04-07] MEDS ORDERED: SPIRONOLACTONE 25 MG TAB PO SCH (09:00)
[2024-04-07] MEDS: ASPIRIN 81 MG PO SCH (09:11)
[2024-04-07] MEDS: ENOXAPARIN 40 MG/0.4 ML SYRINGE SQ SCH (09:11)
[2024-04-07] MEDS: CLOPIDOGREL 75 MG TAB PO SCH (09:11)
[2024-04-07 12:00] LABS: Glucose,Whole Blood 104 mg/dL (70-110)
[2024-04-07] MEDS: FUROSEMIDE 40 MG TAB PO SCH (12:00)
--- NOTE | 2024-04-07 15:45 | P.PN ---
Subjective Progress Note Date: 04/07/24 Patient is a 78-year-old male with past medical history of COPD on 3 L home oxygen, prh-ntxqtax-edknkqkyk diabetes mellitus, history of pulmonary embolism, hyperlipidemia, hypertension, CHF with unknown EF, previous IN with heart catheterization and stent placement, history of hospitalization for pneumonia, and GERD presented to the ED with shortness of breath. He reports that his shortness of breath started 34 weeks ago. He was admitted at [facility] on 04/01. He is at that time he also experienced fever and chills and was diagnosed pneumonia. He was admitted for 4 days and was discharged on 04/05. While he was at home after discharge, he became short of breath while walking from his bottom to the kitchen. He also endorses a chronic productive cough with some yellowishwhite sputum production. He denies hemoptysis. He mentions using oxygen 3 L at home, usually at night. He endorses a long history of COPD and CHF but states that shortness of breath has been worsening lately and he cannot go without oxygen at all which is bothersome for him. Additionally he reports having a low stream of urine. He denies being on Flomax at home. Additionally, he states previous pulmonary embolism as well as heart catheterization with stent placement and is currently on Plavix. At the time he denies fever, chills, chest pain, palpitation, abdominal pain, nausea, vomiting, hematuria, dysuria, hematochezia, melena, headache, slurred speech, numbness, tingling. On presentation to the ED, vitals were T 97.6 F, [place] 93 bpm, RR 32, BP 114/62, O2 83% on room air. Initial EKG showed normal sinus rhythm. Chest x-ray showed no acute cardiopulmonary disease/process; COPD changes. Initial labs: WBC 16.3, APTT 20.2, sodium 133, bicarb 33, BUN 35, creatinine 1.26, lactic acid 4.8, troponin 0.017, proBNP 355. In the ED he was treated with nebulized albuterol, ceftriaxone 1 g, DuoNeb, Solu-Medrol 125 mg. 04/07. Patient seen and examined lying comfortably in bed. No acute events overnight. He continues to endorse cough and shortness of breath. He is on 4 L nasal cannula. Labs today: WBCs 10.1, hemoglobin 12.5, hematocrit 38.1, sodium 129, potassium 4.6, chloride 96, CO2 31, BUN 33, creatinine 0.97, glucose 153, lactate 1.6, calcium 8.7. Pertinent positives and negatives discussed above, a complete review of systems was performed and all the other systems were negative. Physical examination: Vital signs reviewed. Saturating 97% on 4 L General: Nontoxic, no distress, appears stated age, well-appearing Derm: Warm, dry, intact Head: Atraumatic, normocephalic, symmetric Eyes: EOMI, anicteric sclera Mouth: No lip lesion, mucus membranes moist Cardiovascular: S1-S2 diminished, no murmur Lungs: Expiratory wheezes bilaterally throughout, on 4 L nasal cannula, speaking in low volume short sentences Abdominal: Soft, non-tender to palpation Extremities: No cyanosis, clubbing; trace edema bilaterally Neuro: Alert, oriented x 3, gross neurological examination did not reveal any focal deficits. Cranial nerves II to XII grossly intact. Psych: Appropriate affect and mood Assessment and Plan: Patient is a 78-year-old male with past medical history of COPD on 3 L home oxygen, hrz-dtfqhec-fqynloadn diabetes mellitus, history of pulmonary embolism, hyperlipidemia, hypertension, CHF with unknown EF, previous IN with heart catheterization and stent placement, history of hospitalization for pneumonia, and GERD admitted for COPD exacerbation. Active #. Acute on chronic hypoxic respiratory failure, secondary to COPD exacerbation #. Acute COPD exacerbation Continue Supplemental oxygen, wean O2 to 3 L Solu-Medrol 60 mg IV every 6 hours Duoneb 4 times daily and as needed Symbicort twice daily Spiriva daily Pulmonology consulted #. Hyponatremia, hypervolemic Monitor BMP Fluid restriction Restart Lasix 40 mg PO daily Resolved #. SIRS, present on admission #. Lactic acidosis #. Acute kidney injury, likely prerenal #. Leukocytosis Chronic #. Congestive heart failure, unknown EF, not in exacerbation #. History of CAD, heart catheterization, stent placement #. Hypertension #. Hyperlipidemia Clopidogrel 75 mg PO daily Aspirin 81 mg PO daily Atorvastatin 20 mg PO daily Lisinopril 2.5 mg PO daily Metoprolol tartrate 25 mg PO twice daily Spironolactone 25 mg PO daily Plavix 75 mg PO daily #. Fco-sszknbn-cpqxodeyi diabetes mellitus Hold metformin Insulin sliding scale, monitor for hypoglycemia Accu-Cheks ACHS #. GERD Pantoprazole 40 mg PO daily #. Neuropathy Gabapentin 100 mg PO daily #. Peripheral arterial disease, chronic Patient follows with outpatient vascular surgery #. History of bilateral PE Not currently maintained on anticoagulation at home F: None E: Replete as required N: Heart healthy diet A: Ambulatory DVT prophylaxis: Lovenox SQ 40 mg daily GI prophylaxis: Pantoprazole 40 mg PO daily Code status: Full code Anticipated discharge place: Home I have seen and evaluated the patient today. Discussed with the resident and agree with the residents finding and plan as documented in the resident's note. Changes highlighted in blue font. Objective - Vital Signs Vital signs: Vital Signs Temp 98.3 F 04/07/24 04:00 Pulse 77 04/07/24 04:00 Resp 20 04/07/24 04:00 BP 107/62 04/07/24 04:00 Pulse Ox 97 04/07/24 04:00 FiO2 Intake & Output 04/06/24 04/07/24 04/07/24 18:59 06:59 18:59 Weight 106.594 kg 106.594 kg Other: Voiding Method Urinal # Voids 2 - Labs CBC & Chem 7: 04/07/24 04:05 04/07/24 04:05 Labs: Abnormal Lab Results - Last 24 Hours (Table) 04/06/24 04/06/24 04/06/24 Range/Units 14:46 14:46 14:46 WBC 16.3 H (3.8-10.6) k/uL Hgb (13.0-17.5) gm/dL Hct (39.0-53.0) % Neutrophils # 11.2 H (1.3-7.7) k/uL Monocytes # 1.4 H (0-1.0) k/uL APTT 20.2 L (22.0-30.0) sec Sodium 133 L (137-145) mmol/L Chloride 91 L (98-107) mmol/L Carbon Dioxide 33 H (22-30) mmol/L BUN 35 H (9-20) mg/dL Creatinine 1.26 H (0.66-1.25) mg/dL Glucose 102 H (74-99) mg/dL POC Glucose (mg/dL) (70-110) mg/dL Plasma Lactic Acid Sandor (0.7-2.0) mmol/L 04/06/24 04/06/24 04/06/24 Range/Units 14:46 17:44 21:09 WBC (3.8-10.6) k/uL Hgb (13.0-17.5) gm/dL Hct (39.0-53.0) % Neutrophils # (1.3-7.7) k/uL Monocytes # (0-1.0) k/uL APTT (22.0-30.0) sec Sodium (137-145) mmol/L Chloride (98-107) mmol/L Carbon Dioxide (22-30) mmol/L BUN (9-20) mg/dL Creatinine (0.66-1.25) mg/dL Glucose (74-99) mg/dL POC Glucose (mg/dL) 214 H (70-110) mg/dL Plasma Lactic Acid Sandor 4.8 H* 2.3 H* (0.7-2.0) mmol/L 04/06/24 04/07/24 04/07/24 Range/Units 21:15 04:05 04:05 WBC (3.8-10.6) k/uL Hgb 12.5 L (13.0-17.5) gm/dL Hct 38.1 L (39.0-53.0) % Neutrophils # (1.3-7.7) k/uL Monocytes # (0-1.0) k/uL APTT (22.0-30.0) sec Sodium 129 L (137-145) mmol/L Chloride 96 L (98-107) mmol/L Carbon Dioxide 31 H (22-30) mmol/L BUN 33 H (9-20) mg/dL Creatinine (0.66-1.25) mg/dL Glucose 153 H (74-99) mg/dL POC Glucose (mg/dL) (70-110) mg/dL Plasma Lactic Acid Sandor 3.9 H* (0.7-2.0) mmol/L 04/07/24 Range/Units 06:12 WBC (3.8-10.6) k/uL Hgb (13.0-17.5) gm/dL Hct (39.0-53.0) % Neutrophils # (1.3-7.7) k/uL Monocytes # (0-1.0) k/uL APTT (22.0-30.0) sec Sodium (137-145) mmol/L Chloride (98-107) mmol/L Carbon Dioxide (22-30) mmol/L BUN (9-20) mg/dL Creatinine (0.66-1.25) mg/dL Glucose (74-99) mg/dL POC Glucose (mg/dL) 127 H (70-110) mg/dL Plasma Lactic Acid Sandor (0.7-2.0) mmol/L
[2024-04-07 15:58] LABS: Appearance,Urine Clear (Clear); Bilirubin,Urine Negative (Negative); Blood,Urine Negative (Negative); Color,Urine Light Yellow; Glucose,Urine (UA) Negative (Negative); Ketones,Urine Negative (Negative); Leukocyte Esterase,Urine Negative (Negative); Nitrite,Urine Negative (Negative); PH, Urine 6.5 (5.0-8.0); Protein,Urine Negative (Negative); Specific Gravity,Urine 1.017 (1.001-1.035); Urobilinogen,Urine <2.0 mg/dL (<2.0)
[2024-04-07 16:55] LABS: Glucose,Whole Blood 136 mg/dL (70-110)
[2024-04-07] MEDS: IPRATROPIUM-ALBUTEROL 3 ML NEB INHALATION PRN (17:40)
[2024-04-07 20:05] LABS: Glucose,Whole Blood 144 mg/dL (70-110)
[2024-04-08 06:19] LABS: Glucose,Whole Blood 116 mg/dL (70-110)
[2024-04-08 08:02] LABS: African American GFR (CKD) 85 (>60 ml/min/1.73 sqM); Anion Gap 2 mmol/L; Blood Urea Nitrogen 36 mg/dL (9-20); Calcium 9.5 mg/dL (8.4-10.2); Carbon Dioxide 34 mmol/L (22-30); Chloride 92 mmol/L (98-107); Glucose 107 mg/dL (74-99); Non-African American GFR(CKD) 74 (>60 ml/min/1.73 sqM); Potassium 4.9 mmol/L (3.5-5.1); Sodium 128 mmol/L (137-145)
[2024-04-08 11:33] LABS: Glucose,Whole Blood 103 mg/dL (70-110)
--- NOTE | 2024-04-08 15:31 | P.PN ---
Subjective Progress Note Date: 04/08/24 Patient is a 78-year-old male with past medical history significant for COPD, chronic oxygen dependence, hyperlipidemia, hypertension, PAD, heart failure, among other things. Patient does follow in the pulmonary office with Dr. Vargas for management of his very severe COPD. He has an FEV1 29% of predi cted. He is normally maintained on oxygen at 3l liters per minute just at night, however, his oxygen concentrator is not working. He is currently maintained on a combination of the Breyna, Spiriva, and albuterol nebs around the clock. Of note, patient reportedly was recently discharged from [facility] with a diagnosis of pneumonia. Discharged reportedly yesterday. Less than 24 hours later patient reporting severe difficulty in breathing. Associated with wheezing and a mild nonproductive cough. Denies rhinorrhea, post-nasal drip, sore throat, sinus congestion or pressure. Denies any sputum production, fevers, chills, chest pain, hemoptysis. Denies nausea, vomiting, diarrhea. Reportedly has history of heart failure. Denies any increased weight gain, lower extremity swelling, orthopnea, PND. Does take Lasix on an outpatient basis. Chest x-ray done arrival does not show any acute cardiopulmonary process. CBC: WBC count 16.3, hemoglobin 13.8, hematocrit 43.2, platelets 351. CMP: Sodium 133, potassium 4, chloride 91, serum bicarb 33, BUN 35, creatinine 1.26, glucose 102. Lactic 3.9 and down to 1.6. LFTs unremarkable. Troponin 0.017. NT proBNP 355. EKG: Normal sinus rhythm, rate 97 bpm, mild diffuse ST depressions. I am evaluating this patient on the cardiac stepdown unit. He was admitted with acute COPD exacerbation. He is currently on 4 L/min nasal cannula. Appears mildly dyspneic at rest. Has a intermittent cough. Nonproductive. Faint expiratory wheezes heard on auscultation. He is already been started on a combination of DuoNebs, IV Solu-Medrol, and Symbicort inhaler. Also, empirically covered on Augmentin. He is looking forward to going home, once home O2 is made available again. The patient is seen today April 08, 2024 in follow-up on the selective care unit. He is currently sitting up in bed. Awake and alert in no acute distress. Oertli maintaining good O2 saturations in the mid 90s on room air. He has been afebrile. Hemodynamically stable. Blood cultures revealing no growth thus far. Sodium 128. Potassium 4.9. Bicarb 34. BUN 36. Creatinine 0.99. Glucose 107. DuoNeb inhalations, Symbicort, Solu-Medrol. Lovenox for DVT prophylaxis. Continued on oral diuretics. Objective - Vital Signs Vital signs: Vital Signs Temp 97.9 F 04/08/24 08:57 Pulse 89 04/08/24 12:18 Resp 20 04/08/24 12:18 BP 147/76 04/08/24 12:18 Pulse Ox 94 L 04/08/24 12:18 FiO2 Intake & Output 04/07/24 04/08/24 04/08/24 18:59 06:59 18:59 Intake Total 1345 378 Output Total 1300 500 Balance 45 -500 378 Intake: IV 20 Invasive Line 1 20 Oral 1345 358 Output: Urine 1300 500 Other: Voiding Method Urinal Urinal Urinal # Voids 1 1 2 - Exam GENERAL EXAM: Alert, 78-year-old obese male, sitting up in bed, on room air. HEAD: Normocephalic and atraumatic EYES: Normal reaction of pupils, equal size. NOSE: Clear with pink turbinates. THROAT: No erythema or exudates. NECK: No masses, no JVD. CHEST: No chest wall deformity. LUNGS: Equal air entry with faint expiratory wheezes heard bilaterally and throughout. CVS: S1 and S2 diminished with no audible murmur, regular rhythm. No extra heart sounds ABDOMEN: No hepatosplenomegaly, active bowel sounds, no guarding or rigidity. SPINE: No scoliosis or deformity SKIN: No rashes CENTRAL NERVOUS SYSTEM: No focal deficits, tone is normal in all 4 extremities. EXTREMITIES: There is mild bipedal edema. No clubbing, or cyanosis. Weak peripheral pulses are intact. - Labs CBC & Chem 7: 04/07/24 04:05 04/08/24 07:10 Labs: Abnormal Lab Results - Last 24 Hours (Table) 04/07/24 04/07/24 04/07/24 Range/Units 04:05 16:54 20:03 Sodium (137-145) mmol/L Chloride (98-107) mmol/L Carbon Dioxide (22-30) mmol/L BUN (9-20) mg/dL Glucose (74-99) mg/dL POC Glucose (mg/dL) 136 H 144 H (70-110) mg/dL TSH 0.411 L (0.465-4.680) mIU/L 04/08/24 04/08/24 Range/Units 06:18 07:10 Sodium 128 L (137-145) mmol/L Chloride 92 L (98-107) mmol/L Carbon Dioxide 34 H (22-30) mmol/L BUN 36 H (9-20) mg/dL Glucose 107 H (74-99) mg/dL POC Glucose (mg/dL) 116 H (70-110) mg/dL TSH (0.465-4.680) mIU/L Microbiology - Last 24 Hours (Table) 04/06/24 15:14 Blood Culture - Preliminary Blood 04/06/24 14:45 Blood Culture - Preliminary Blood Assessment and Plan Assessment: Acute COPD exacerbation; chest x-ray does not show any acute cardiopulmonary p rocess, including focal infiltrates or evidence of pneumonia. Procalcitonin 0.07 Acute on top of chronic hypoxemic respiratory failure, secondary to above Acute leukocytosis, possibly reactive to steroids that he received during his recent hospitalization Acute kidney injury, creatinine 0.99 Lactic acidemia, improved History of heart failure, with unknown ejection fraction History of hyperlipidemia History of hypertension History of CAD History of peripheral arterial disease Very severe chronic obstructive pulmonary disease, with an FEV1 29% of predicted, normally maintained on a combination of Breyna, Spiriva, albuterol nebs [id number] Chronic hypoxemic respiratory failure, secondary to above, normally oxygen dependent on 3 L/min nasal cannula at bedtime Former tobacco dependence, quit smoking over 15 years ago Obesity, with a BMI of 35.7 kg/m Plan: The patient was seen and evaluated Labs and medications reviewed Procalcitonin negative Improved today compared to yesterday Continue the current treatment plan Stable and on room air Continue bronchodilators, steroids Probable discharge later today or tomorrow I have personally seen and examined the patient, performed the documentation and the assessment and plan as written. Number of minutes spent on the visit: 10. Dictation was produced using [employer] dictation software. Please excuse any grammatical, word or spelling errors.
[2024-04-08 16:12] LABS: Glucose,Whole Blood 174 mg/dL (70-110)
--- NOTE | 2024-04-08 16:57 | P.PN ---
Subjective Progress Note Date: 04/08/24 Patient is a 78-year-old male with past medical history of COPD on 3 L home oxygen, bnx-qhpmjoh-ajsdvyaqz diabetes mellitus, history of pulmonary embolism, hyperlipidemia, hypertension, CHF with unknown EF, previous MA with heart catheterization and stent placement, history of hospitalization for pneumonia, and GERD presented to the ED with shortness of breath. He reports that his shortness of breath started 34 weeks ago. He was admitted at [facility] on 04/01. He is at that time he also experienced fever and chills and was diagnosed pneumonia. He was admitted for 4 days and was discharged on 04/05. While he was at home after discharge, he became short of breath while walking from his bottom to the kitchen. He also endorses a chronic productive cough with some yellowishwhite sputum production. He denies hemoptysis. He mentions using oxygen 3 L at home, usually at night. He endorses a long history of COPD and CHF but states that shortness of breath has been worsening lately and he cannot go without oxygen at all which is bothersome for him. Additionally he reports having a low stream of urine. He denies being on Flomax at home. Additionally, he states previous pulmonary embolism as well as heart catheterization with stent placement and is currently on Plavix. At the time he denies fever, chills, chest pain, palpitation, abdominal pain, nausea, vomiting, hematuria, dysuria, hematochezia, melena, headache, slurred speech, numbness, tingling. On presentation to the ED, vitals were T 97.6 F, [place] 93 bpm, RR 32, BP 114/62, O2 83% on room air. Initial EKG showed normal sinus rhythm. Chest x-ray showed no acute cardiopulmonary disease/process; COPD changes. Initial labs: WBC 16.3, APTT 20.2, sodium 133, bicarb 33, BUN 35, creatinine 1.26, lactic acid 4.8, troponin 0.017, proBNP 355. In the ED he was treated with nebulized albuterol, ceftriaxone 1 g, DuoNeb, Solu-Medrol 125 mg. 04/07. Patient seen and examined lying comfortably in bed. No acute events overnight. He continues to endorse cough and shortness of breath. He is on 4 L nasal cannula. Labs today: WBCs 10.1, hemoglobin 12.5, hematocrit 38.1, sodium 129, potassium 4.6, chloride 96, CO2 31, BUN 33, creatinine 0.97, glucose 153, lactate 1.6, calcium 8.7. 04/08. Patient seen and examined. No acute events overnight. No significant complaints today. Endorses improved cough and shortness of breath. Saturating 97% on room air. BMP today: Sodium 128, potassium 4.9, chloride 92, CO2 34, BUN 36, creatinine 0.99, glucose 107. Pertinent positives and negatives discussed above, a complete review of systems was performed and all the other systems were negative. Physical examination: Vital signs reviewed. Saturating 97% on room air. General: Nontoxic, no distress, appears stated age, well-appearing Derm: Warm, dry, intact Head: Atraumatic, normocephalic, symmetric Eyes: EOMI, anicteric sclera Mouth: No lip lesion, mucus membranes moist Cardiovascular: S1-S2 diminished, no murmur Lungs: CTA bilaterally, no rhonchi, no rales Abdominal: Soft, non-tender to palpation Extremities: No cyanosis, clubbing; trace edema bilaterally Neuro: Alert, oriented x 3, gross neurological examination did not reveal any focal deficits. Cranial nerves II to XII grossly intact. Psych: Appropriate affect and mood Assessment and Plan: Patient is a 78-year-old male with past medical history of COPD on 3 L home oxygen, zrb-xzgfhnf-vqsrdlero diabetes mellitus, history of pulmonary embolism, hyperlipidemia, hypertension, CHF with unknown EF, previous MA with heart catheterization and stent placement, history of hospitalization for pneumonia, and GERD admitted for COPD exacerbation. Active #. Acute on chronic hypoxic respiratory failure, secondary to COPD exacerbation #. Acute COPD exacerbation Continue Supplemental oxygen as needed; home O2 is 3 L at night Solu-Medrol 60 mg IV every 6 hours Duoneb 4 times daily and as needed Symbicort twice daily Spiriva daily Discussed management with pulmonology, likely discharge tomorrow #. Hyponatremia, hypervolemic Monitor BMP Fluid restriction Lasix 40 mg PO daily Resolved #. SIRS, present on admission #. Lactic acidosis #. Acute kidney injury, likely prerenal #. Leukocytosis Chronic #. Congestive heart failure, unknown EF, not in exacerbation #. History of CAD, heart catheterization, stent placement #. Hypertension #. Hyperlipidemia Clopidogrel 75 mg PO daily Aspirin 81 mg PO daily Atorvastatin 20 mg PO daily Lisinopril 2.5 mg PO daily Metoprolol tartrate 25 mg PO twice daily Spironolactone 25 mg PO daily Plavix 75 mg PO daily #. Bub-wopvpkj-wmhtyvwtt diabetes mellitus Hold metformin Insulin sliding scale Monitor for hypoglycemia Accu-Cheks ACHS #. GERD Pantoprazole 40 mg PO daily #. Neuropathy Gabapentin 100 mg PO daily #. Peripheral arterial disease, chronic Patient follows with outpatient vascular surgery #. History of bilateral PE Not currently maintained on anticoagulation at home F: None E: Replete as required N: Heart healthy diet A: Ambulatory DVT prophylaxis: Lovenox SQ 40 mg daily GI prophylaxis: Pantoprazole 40 mg PO daily Code status: Full code Anticipated discharge place: Home I have seen and evaluated the patient today. Discussed with the resident and agree with the residents finding and plan as documented in the resident's note. Changes highlighted in blue font. Objective - Vital Signs Vital signs: Vital Signs Temp 97.8 F 04/08/24 04:00 Pulse 78 04/08/24 04:00 Resp 18 04/08/24 04:00 BP 124/73 04/08/24 04:00 Pulse Ox 97 04/08/24 04:00 FiO2 Intake & Output 04/07/24 04/07/24 04/08/24 06:59 18:59 06:59 Intake Total 1345 Output Total 1300 500 Balance 45 -500 Weight 106.594 kg Intake: Oral 1345 Output: Urine 1300 500 Other: Voiding Method Urinal Urinal Urinal # Voids 2 1 1 - Labs CBC & Chem 7: 04/07/24 04:05 04/08/24 07:10 Labs: Abnormal Lab Results - Last 24 Hours (Table) 04/07/24 04/07/24 04/07/24 Range/Units 04:05 04:05 16:54 POC Glucose (mg/dL) 136 H (70-110) mg/dL Hemoglobin A1c 6.6 H (<=6.0) % TSH 0.411 L (0.465-4.680) mIU/L 04/07/24 04/08/24 Range/Units 20:03 06:18 POC Glucose (mg/dL) 144 H 116 H (70-110) mg/dL Hemoglobin A1c (<=6.0) % TSH (0.465-4.680) mIU/L Microbiology - Last 24 Hours (Table) 04/06/24 15:14 Blood Culture - Preliminary Blood 04/06/24 14:45 Blood Culture - Preliminary Blood
[2024-04-08 21:14] LABS: Glucose,Whole Blood 161 mg/dL (70-110)
[2024-04-08] MEDS: hydrOXYzine HCL 25 MG TAB PO SCH (21:21)
[2024-04-09 04:00] LABS: African American GFR (CKD) 83 (>60 ml/min/1.73 sqM); Anion Gap 8 mmol/L; Blood Urea Nitrogen 42 mg/dL (9-20); Calcium 9.2 mg/dL (8.4-10.2); Carbon Dioxide 28 mmol/L (22-30); Chloride 91 mmol/L (98-107); Glucose 149 mg/dL (74-99); Non-African American GFR(CKD) 72 (>60 ml/min/1.73 sqM); Potassium 4.9 mmol/L (3.5-5.1); Sodium 127 mmol/L (137-145)
[2024-04-09 06:25] LABS: Glucose,Whole Blood 137 mg/dL (70-110)
--- NOTE | 2024-04-09 08:01 | P.PN ---
Subjective Progress Note Date: 04/09/24 Principal diagnosis: COPD exacerbation. Patient is a 78-year-old male with past medical history significant for COPD, chronic oxygen dependence, hyperlipidemia, hypertension, PAD, heart failure, among other things. Patient does follow in the pulmonary office with Dr. Vargas for management of his very severe COPD. He has an FEV1 29% of predicted. He is normally maintained on oxygen at 3l liters per minute just at night, however, his oxygen concentrator is not working. He is currently maintained on a combination of the Breyna, Spiriva, and albuterol nebs around the clock. Of note, patient reportedly was recently discharged from [facility] with a diagnosis of pneumonia. Discharged reportedly yesterday. Less than 24 hours later patient reporting severe difficulty in breathing. Associated with wheezing and a mild nonproductive cough. Denies rhinorrhea, post-nasal drip, sore throat, sinus congestion or pressure. Denies any sputum production, fevers, chills, chest pain, hemoptysis. Denies nausea, vomiting, diarrhea. Reportedly has history of heart failure. Denies any increased weight gain, lower extremity swelling, orthopnea, PND. Does take Lasix on an outpatient basis. Chest x-ray done arrival does not show any acute cardiopulmonary process. CBC: WBC count 16.3, hemoglobin 13.8, hematocrit 43.2, platelets 351. CMP: Sodium 133, potassium 4, chloride 91, serum bicarb 33, BUN 35, creatinine 1.26, glucose 102. Lactic 3.9 and down to 1.6. LFTs unremarkable. Troponin 0.017. NT proBNP 355. EKG: Normal sinus rhythm, rate 97 bpm, mild diffuse ST depressions. I am evaluating this patient on the cardiac stepdown unit. He was admitted with acute COPD exacerbation. He is currently on 4 L/min nasal cannula. Appears mildly dyspneic at rest. Has a intermittent cough. Nonproductive. Faint expiratory wheezes heard on auscultation. He is already been started on a combination of DuoNebs, IV Solu-Medrol, and Symbicort inhaler. Also, empirically covered on Augmentin. He is looking forward to going home, once home O2 is made available again. The patient is seen today April 08, 2024 in follow-up on the selective care unit. He is currently sitting up in bed. Awake and alert in no acute distress. Oertli maintaining good O2 saturations in the mid 90s on room air. He has been afebrile. Hemodynamically stable. Blood cultures revealing no growth thus far. Sodium 128. Potassium 4.9. Bicarb 34. BUN 36. Creatinine 0.99. Glucose 107. DuoNeb inhalations, Symbicort, Solu-Medrol. Lovenox for DVT prophylaxis. Continued on oral diuretics. Progress note dated April 09, 2024. The patient is seen today in room 453. He is doing much better. He continues on oxygen at 3 L. His breathing is much improved, the patient could be considered for possible discharge. Will leave that up to the primary service. No new complaints today. Sodium 127, potassium 4.9, chlorides 91, CO2 28, BUN 42, creatinine 1.01. Glucose 137. Calcium 9.2. Objective - Vital Signs Vital signs: Vital Signs Temp 97.5 F L 04/09/24 00:33 Pulse 57 L 04/09/24 00:33 Resp 17 04/09/24 00:33 BP 134/72 04/09/24 00:33 Pulse Ox 97 04/09/24 00:33 FiO2 Intake & Output 04/08/24 04/09/24 04/09/24 18:59 06:59 18:59 Intake Total 488 10 Balance 488 10 Intake: IV 20 10 Invasive Line 1 20 10 Oral 468 Other: Voiding Method Urinal Toilet # Voids 2 2 - Exam No acute distress, oriented 3. Currently on 3 L nasal cannula. No conversational dyspnea, or use of accessory muscles. HEENT examination is grossly unremarkable. Mucous membranes are moist. No oral lesions. Neck supple. Full range of motion. No adenopathy thyromegaly or neck vein distention. Cardiovascular examination reveals regular rhythm rate. S1-S2 normal. No S3 or S4. No discernible murmur noted. Lungs reveal much improved breath sounds. Residual rhonchi and wheezes are noted. Breath sounds are equal bilaterally. No crackles. Breath sounds are diminished throughout. Abdomen soft bowel sounds are heard. No masses or tenderness. Extremities are intact. No cyanosis or clubbing. Mild lower extremity edema is appreciated. Skin is without rash or lesion. Neurologic examination is brief but nonfocal. - Labs CBC & Chem 7: 04/07/24 04:05 04/09/24 02:32 Labs: Abnormal Lab Results - Last 24 Hours (Table) 04/08/24 04/08/24 04/08/24 Range/Units 07:10 16:07 21:13 Sodium 128 L (137-145) mmol/L Chloride 92 L (98-107) mmol/L Carbon Dioxide 34 H (22-30) mmol/L BUN 36 H (9-20) mg/dL Glucose 107 H (74-99) mg/dL POC Glucose (mg/dL) 174 H 161 H (70-110) mg/dL 04/09/24 04/09/24 Range/Units 02:32 06:23 Sodium 127 L (137-145) mmol/L Chloride 91 L (98-107) mmol/L Carbon Dioxide (22-30) mmol/L BUN 42 H (9-20) mg/dL Glucose 149 H (74-99) mg/dL POC Glucose (mg/dL) 137 H (70-110) mg/dL Microbiology - Last 24 Hours (Table) 04/06/24 15:14 Blood Culture - Preliminary Blood 04/06/24 14:45 Blood Culture - Preliminary Blood Assessment and Plan Assessment: Acute COPD exacerbation. Acute on top of chronic hypoxemic respiratory failure. Acute leukocytosis, possibly reactive. Acute kidney injury. Lactic acidemia, improved. History of heart failure, with unknown ejection fraction. History of hyperlipidemia. History of hypertension. History of CAD. History of peripheral arterial disease. Very severe chronic obstructive pulmonary disease, with an FEV1 29% of predicted. Chronic hypoxemic respiratory failure. Former tobacco dependence, quit smoking over 15 years ago. Obesity, with a BMI of 35.7 kg/m. Plan: Plan dated April 09, 2024. The patient is seen today in room 453. He continues on oxygen at 3 L. Yesterday, he wanted to be discharged. His procalcitonin level is negative. Labs, x-rays, and medications are reviewed. The patient could be considered for possible discharge today. Will leave that up to the primary service. No additional recommendations are made at this time. The patient is on appropriate medications. Labs, x-rays, and all medications are reviewed. Time with Patient: Less than 30
[2024-04-09 08:44] VITALS: BP 117/61; PULSE 85; RESP 18; TEMP 98.1
--- NOTE | 2024-04-09 13:03 | P.DS ---
Providers Date of admission: 04/06/24 19:12 Expected date of discharge: 04/09/24 Attending physician: Aric Hyatt Consults: 04/07/24 03:15 Consult Physician Routine Consulting Provider: Ayad Goddard Reason/Comments: copd exacerbation Do you want consulting provider notified?: Yes, Notify in am Primary care physician: [facility] Hospital Course: Hospital Course: Patient is a 78-year-old male with past medical history of COPD on 3 L home oxygen, [id number] diabetes mellitus, history of pulmonary embolism, hyperlipidemia, hypertension, CHF with unknown EF, previous CT with heart catheterization and stent placement, history of hospitalization for pneumonia, and GERD presented to the ED with shortness of breath. He reports that his shortness of breath started 34 weeks ago. He was admitted at [facility] on 04/01. He is at that time he also experienced fever and chills and was diagnosed pneumonia. He was admitted for 4 days and was discharged on 04/05. While he was at home after discharge, he became short of breath while walking from his bottom to the kitchen. He also endorses a chronic productive cough with some yellowishwhite sputum production. He denies hemoptysis. He mentions using oxygen 3 L at home, usually at night. He endorses a long history of COPD and CHF but states that shortness of breath has been worsening lately and he cannot go without oxygen at all which is bothersome for him. Additionally he reports having a low stream of urine. He denies being on Flomax at home. Additionally, he states previous pulmonary embolism as well as heart catheterization with stent placement and is currently on Plavix. At the time he denies fever, chills, chest pain, palpitation, abdominal pain, nausea, vomiting, hematuria, dysuria, hematochezia, melena, headache, slurred speech, numbness, tingling. On presentation to the ED, vitals were T 97.6 F, OH 93 bpm, RR 32, BP 114/62, O2 83% on room air. Initial EKG showed normal sinus rhythm. Chest x-ray showed no acute cardiopulmonary disease/process; COPD changes. Initial labs: WBC 16.3, APTT 20.2, sodium 133, bicarb 33, BUN 35, creatinine 1.26, lactic acid 4.8, troponin 0.017, proBNP 355. In the ED he was treated with nebulized albuterol, ceftriaxone 1 g, DuoNeb, Solu-Medrol 125 mg. Pulmonology was consulted for further recommendations. Patient was given DuoNeb inhalations, Symbicort, and Solu-Medrol. Dyspnea has resolved. Patient saturating 96% on room air. Patient's sodium did downtrend. Initially thought to be hypervolemic hyponatremia, possibly euvolemic at the moment. Denies any weakness or any neurologic deficits. Mentation is normal. Patient provided a BMP prescription for repeat BMP in 3 days. Follow-up with PCP to trend further sodium. Patient is medically stable for discharge. Final Diagnosis: #. Acute on chronic hypoxic respiratory failure, secondary to COPD exacerbation. Resolved. #. Acute COPD exacerbation. Resolved. #. Hyponatremia, hypervolemic #. SIRS, present on admission. Resolved. #. Lactic acidosis. Resolved. #. Acute kidney injury, likely prerenal. Resolved. #. Leukocytosis. Resolved. #. Congestive heart failure, unknown EF, not in exacerbation #. History of CAD, heart catheterization, stent placement #. Hypertension #. Hyperlipidemia #. Ptc-uugbzcp-hueziddmp diabetes mellitus #. GERD #. Neuropathy #. Peripheral arterial disease, chronic #. History of bilateral PE Physical examination: Vital signs reviewed. Saturating 97% on room air. General: Nontoxic, no distress, appears stated age, well-appearing Derm: Warm, dry, intact Head: Atraumatic, normocephalic, symmetric Eyes: EOMI, anicteric sclera Mouth: No lip lesion, mucus membranes moist Cardiovascular: S1-S2 distant, no murmur Lungs: CTA bilaterally, no rhonchi, no rales Abdominal: Soft, non-tender to palpation Extremities: No cyanosis, clubbing; trace edema bilaterally Neuro: Alert, oriented x 3, gross neurological examination did not reveal any focal deficits. Cranial nerves II to XII grossly intact. Psych: Appropriate affect and mood A total of 38 minutes of time were spent preparing this complex discharge summary. Patient was discharged on 04/09/2024 at 916. I have seen and evaluated the patient today. Discussed with the resident and agree with the residents finding and plan as documented in the resident's note. Changes highlighted in blue font. Patient Condition at Discharge: Stable Plan - Discharge Summary Discharge Rx Participant: No New Discharge Prescriptions: New predniSONE [Deltasone] 40 mg PO DAILY #6 tab Continue Aspirin EC [Ecotrin Low Dose] 81 mg PO DAILY Budesonide/Formoterol Fumarate [Symbicort 160-4.5 Mcg Inhaler] 2 puff INHALATION RT-BID Ipratropium/Albuterol Sulfate [Combivent Respimat Inhaler] 1 puff INHALATION RT-QID lisinopriL [Zestril] 2.5 mg PO HS Metoprolol Tartrate [Lopressor] 25 mg PO BID Spironolactone 25 mg PO DAILY Clopidogrel Bisulfate [Plavix] 75 mg PO DAILY Tiotropium 18 Mcg/Puff [Spiriva] 2 puff INHALATION RT-DAILY Simvastatin [Zocor] 40 mg PO HS Albuterol Nebulized [Ventolin Nebulized] 2.5 mg INHALATION RT-QID Loratadine [Claritin] 10 mg PO DAILY Albuterol Inhaler [Ventolin Hfa Inhaler] 2 puff INHALATION RT-Q6H PRN PRN Reason: Shortness Of Breath Cholecalciferol [Vitamin D3 (25 Mcg = 1000 Iu)] 25 mcg PO BID Pantoprazole [Protonix] 40 mg PO DIRECTED Furosemide [Lasix] 40 mg PO DAILY Gabapentin [Neurontin] 100 mg PO DIRECTED metFORMIN HCL 500 mg PO DIRECTED Ferrous Sulfate [Iron (65 MG Elemental)] 325 mg PO DIRECTED Folic Acid 1 mg PO DIRECTED Vitamin B-12 50mcg 50 mcg PO DIRECTED Discontinued predniSONE [Deltasone] 40 mg PO DIRECTED Discharge Medication List Aspirin EC [Ecotrin Low Dose] 81 mg PO DAILY 06/22/18 [History] Budesonide/Formoterol Fumarate [Symbicort 160-4.5 Mcg Inhaler] 2 puff INHALATION RT-BID 06/22/18 [History] Ipratropium/Albuterol Sulfate [Combivent Respimat Inhaler] 1 puff INHALATION RT- QID 06/22/18 [History] Metoprolol Tartrate [Lopressor] 25 mg PO BID 06/22/18 [History] Spironolactone 25 mg PO DAILY 06/22/18 [History] lisinopriL [Zestril] 2.5 mg PO HS 06/22/18 [History] Clopidogrel Bisulfate [Plavix] 75 mg PO DAILY 07/01/18 [History] Albuterol Inhaler [Ventolin Hfa Inhaler] 2 puff INHALATION RT-Q6H PRN 12/07/19 [History] Albuterol Nebulized [Ventolin Nebulized] 2.5 mg INHALATION RT-QID 12/07/19 [History] Loratadine [Claritin] 10 mg PO DAILY 12/07/19 [History] Simvastatin [Zocor] 40 mg PO HS 12/07/19 [History] Tiotropium 18 Mcg/Puff [Spiriva] 2 puff INHALATION RT-DAILY 12/07/19 [History] Cholecalciferol [Vitamin D3 (25 Mcg = 1000 Iu)] 25 mcg PO BID 03/17/24 [History] Furosemide [Lasix] 40 mg PO DAILY 03/17/24 [History] Ferrous Sulfate [Iron (65 MG Elemental)] 325 mg PO DIRECTED 04/06/24 [History] Folic Acid 1 mg PO DIRECTED 04/06/24 [History] Gabapentin [Neurontin] 100 mg PO DIRECTED 04/06/24 [History] Pantoprazole [Protonix] 40 mg PO DIRECTED 04/06/24 [History] Vitamin B-12 50mcg 50 mcg PO DIRECTED 04/06/24 [History] metFORMIN HCL 500 mg PO DIRECTED 04/06/24 [History] predniSONE [Deltasone] 40 mg PO DAILY #6 tab 04/08/24 [Rx] Follow up Appointment(s)/Referral(s): Ayad Goddard DO [Doctor of Osteopathic Medicine] - 1 Week (Please call Thursday to schedule appointment ) [facility] [Primary Care Provider] - 1-2 days (Please call Thursday to schedule appointment ) Ambulatory/Diagnostic Orders: Basic Metabolic Panel [LAB.AMB] Time Frame: 3 Days, Location: None Selected Basic Metabolic Panel [LAB.AMB] Time Frame: 3 Days, Location: None Selected Patient Instructions/Handouts: COPD (Chronic Obstructive Pulmonary Disease) (DC) Activity/Diet/Wound Care/Special Instructions: Please see PCP and pulmonology. Please obtain BMP in 3 days. Discharge Disposition: HOME SELF-CARE
== END 2024-04-09 11:36 | disposition home or self-care (01) | DRG 190 ==
LOC: EC 13:57 → 3SCARD 19:12 → 4SSUR 04-08 22:28
PROVIDERS: ADMIT Student in an Organized Health Care Education/Training Program; ATTEND Student in an Organized Health Care Education/Training Program
DX: J44.1 Chronic obstructive pulmonary disease with (acute) exacerbation (principal); J96.21 Acute and chronic respiratory failure with hypoxia; E87.1 Hypo-osmolality and hyponatremia; E87.20 Acidosis, unspecified; N17.9 Acute kidney failure, unspecified; R65.10 Systemic inflammatory response syndrome (SIRS) of non-infectious origin without acute organ dysfunction; I50.9 Heart failure, unspecified; I11.0 Hypertensive heart disease with heart failure; Z99.81 Dependence on supplemental oxygen; E11.51 Type 2 diabetes mellitus with diabetic peripheral angiopathy without gangrene; E11.40 Type 2 diabetes mellitus with diabetic neuropathy, unspecified; E66.9 Obesity, unspecified; Z68.35 Body mass index [BMI] 35.0-35.9, adult; D72.829 Elevated white blood cell count, unspecified; I25.10 Atherosclerotic heart disease of native coronary artery without angina pectoris; E78.5 Hyperlipidemia, unspecified; K21.9 Gastro-esophageal reflux disease without esophagitis; I25.2 Old myocardial infarction; Z95.5 Presence of coronary angioplasty implant and graft; Z86.711 Personal history of pulmonary embolism; Z79.02 Long term (current) use of antithrombotics/antiplatelets; Z79.51 Long term (current) use of inhaled steroids; Z79.82 Long term (current) use of aspirin; Z79.84 Long term (current) use of oral hypoglycemic drugs; Z79.899 Other long term (current) drug therapy; Z86.0100 Personal history of colon polyps, unspecified; Z87.891 Personal history of nicotine dependence; Z82.49 Family history of ischemic heart disease and other diseases of the circulatory system
CPT/HCPCS: 36415; 71046; 80048; 80053; 81003; 83036; 83605; 83735; 83880; 83930; 83935; 84145; 84300; 84439; 84443; 84484; 85025; 85027; 85610; 85730; 87040; 87636; 93005; 94640; 96365; 96375; 99291

== ENCOUNTER 2024-04-10 15:09 | Observation (INO) | payer MEDICARE ==
[2024-04-10] MEDS ORDERED: IPRATROPIUM-ALBUTEROL 3 ML NEB INHALATION STA (15:45)
--- NOTE | 2024-04-10 15:50 | ED ---
General Adult HPI - General Chief complaint: Shortness of Breath Stated complaint: SOB Time Seen by Provider: 04/10/24 15:29 Source: patient, RN notes reviewed Mode of arrival: wheelchair Limitations: no limitations - History of Present Illness Initial comments: Patient is a 78-year-old male present to the emergency department for difficulty in breathing. Patient has COPD with history of similar symptoms previously. Patient was just discharged yesterday. Symptoms worsened again this morning. Patient does have cough with some white sputum. No fever. Patient does feel fatigued. Patient is on 3 L of oxygen at home. - Related Data Home Medications Medication Instructions Recorded Confirmed Aspirin EC [Ecotrin Low Dose] 81 mg PO DAILY 06/22/18 04/06/24 Budesonide/Formoterol Fumarate 2 puff INHALATION RT-BID 06/22/18 04/06/24 [Symbicort 160-4.5 Mcg Inhaler] Ipratropium/Albuterol Sulfate 1 puff INHALATION RT-QID 06/22/18 04/06/24 [Combivent Respimat Inhaler] Metoprolol Tartrate [Lopressor] 25 mg PO BID 06/22/18 04/06/24 Spironolactone 25 mg PO DAILY 06/22/18 04/06/24 lisinopriL [Zestril] 2.5 mg PO HS 06/22/18 04/06/24 Clopidogrel Bisulfate [Plavix] 75 mg PO DAILY 07/01/18 04/06/24 Albuterol Inhaler [Ventolin Hfa 2 puff INHALATION RT-Q6H PRN 12/07/19 04/06/24 Inhaler] Albuterol Nebulized [Ventolin 2.5 mg INHALATION RT-QID 12/07/19 04/06/24 Nebulized] Loratadine [Claritin] 10 mg PO DAILY 12/07/19 04/06/24 Simvastatin [Zocor] 40 mg PO HS 12/07/19 04/06/24 Tiotropium 18 Mcg/Puff [Spiriva] 2 puff INHALATION RT-DAILY 12/07/19 04/06/24 Cholecalciferol [Vitamin D3 (25 25 mcg PO BID 03/17/24 04/06/24 Mcg = 1000 Iu)] Furosemide [Lasix] 40 mg PO DAILY 03/17/24 04/06/24 Ferrous Sulfate [Iron (65 MG 325 mg PO DIRECTED 04/06/24 04/06/24 Elemental)] Folic Acid 1 mg PO DIRECTED 04/06/24 04/06/24 Gabapentin [Neurontin] 100 mg PO DIRECTED 04/06/24 04/06/24 Pantoprazole [Protonix] 40 mg PO DIRECTED 04/06/24 04/06/24 Vitamin B-12 50mcg 50 mcg PO DIRECTED 04/06/24 04/06/24 metFORMIN HCL 500 mg PO DIRECTED 04/06/24 04/06/24 Previous Rx's Medication Instructions Recorded predniSONE [Deltasone] 40 mg PO DAILY #6 tab 04/08/24 Allergies Allergy/AdvReac Type Severity Reaction Status Date / Time fluticasone AdvReac Nausea Verified 04/10/24 15:15 [From [facility]] levofloxacin [From Levaquin] AdvReac TENDON PAIN Verified 04/10/24 15:15 salmeterol AdvReac Nausea Verified 04/10/24 15:15 [From [facility]] Review of Systems ROS Statement: Those systems with pertinent positive or pertinent negative responses have been documented in the HPI. ROS Other: All systems not noted in ROS Statement are negative. Constitutional: Denies: fever Eyes: Denies: eye pain ENT: Denies: ear pain Respiratory: Reports: as per HPI, cough, dyspnea Cardiovascular: Denies: chest pain Endocrine: Reports: fatigue Gastrointestinal: Denies: abdominal pain Musculoskeletal: Denies: back pain Past Medical History Past Medical History: Coronary Artery Disease (CAD), COPD, GERD/Reflux, Hyperlipidemia, Hypertension, Myocardial Infarction ([place]), Pulmonary Embolus (PE), Renal Disease Additional Past Medical History / Comment(s): Home oxygen prn and pt states he usually wears at night at 2.5 liters, bilateral PEs in 2003, ETOH abuse-pt states he has never had withdrawal symptoms, chronic low back pain/sciatica/spurs/disc disease much improved after back injections, past urinary retention, diverticulitis/benign colon polyps removed, nephrolithiasis- passed stones on his own, shingelles 16 years ago-R shoulder. Last Myocardial Infarction Date:: 2010 History of Any Multi-Drug Resistant Organisms: None Reported Past Surgical History: Heart Catheterization With Stent Additional Past Surgical History / Comment(s): Back injections for pain, piece of metal removed from rt eye, EGD, colonoscopy Past Anesthesia/Blood Transfusion Reactions: No Reported Reaction Additional Past Anesthesia/Blood Transfusion Reaction / Comment(s): claustrophobia Date of Last Stent Placement:: 2010 Past Psychological History: Anxiety, Depression, PTSD Smoking Status: Former smoker Past Alcohol Use History: None Reported Past Drug Use History: None Reported - Past Family History Mother Family Medical History: Cancer Additional Family Medical History / Comment(s): from breast cancer at age 53 Father Family Medical History: Coronary Artery Disease (CAD), Myocardial Infarction ([place]) Additional Family Medical History / Comment(s): 4 mi's/CABG. at at age 72 General Exam Limitations: no limitations General appearance: alert, in no apparent distress Eye exam: Present: normal appearance Neck exam: Present: normal inspection Respiratory exam: Present: wheezes, decreased breath sounds Cardiovascular Exam: Present: regular rate, normal rhythm GI/Abdominal exam: Present: soft. Absent: tenderness Extremities exam: Present: pedal edema (+1 bilateral). Absent: calf tenderness Neurological exam: Present: alert Psychiatric exam: Present: normal affect, normal mood Skin exam: Present: normal color Course Vital Signs 04/10/24 04/10/24 15:15 15:40 Temperature 97.3 F L Pulse Rate 80 102 H Respiratory 26 H 16 Rate Blood Pressure 129/69 107/65 O2 Sat by Pulse 90 L Oximetry EKG Findings - EKG Results: EKG: interpreted by ERMD (Nonspecific ST-T), sinus rhythm, normal axis, normal QRS EKG shows: tachycardia Medical Decision Making - Medical Decision Making Was pt. sent in by a medical professional or institution (, PA, [facility], urgent care, hospital, or snf...) When possible be specific @ -No Did you speak to anyone other than the patient for history (EMS, parent, family, police, friend...)? What history was obtained from this source @ -No Did you review nursing and triage notes (agree or disagree)? Why? @ -I reviewed and agree with nursing and triage notes Were old charts reviewed (outside hosp., previous admission, EMS record, old EKG, old radiological studies, urgent care reports/EKG's, snf records)? Report findings @ -This admission and chest x-ray reviewed Differential Diagnosis (chest pain, altered mental status, abdominal pain women, abdominal pain men, vaginal bleeding, weakness, fever, dyspnea, syncope, headache, dizziness, GI bleed, back pain, seizure, CVA, palpatations, mental health, musculoskeletal)? @ -Differential Dyspnea: Coronary syndrome, arrhythmia, tamponade, asthma, COPD, pulmonary embolism, pneumonia, pneumothorax, pulmonary effusion, anaphylaxis, diabetic ketoacidosis, flailed chest, pulmonary contusion, diaphragmatic rupture, anemia, neuromus cular, this is not meant to be an all-inclusive list. EKG interpreted by me (3pts min.). @ -As above X-rays interpreted by me (1pt min.). @ -Chest x-ray shows no acute process CT interpreted by me (1pt min.). @ -None done U/S interpreted by me (1pt. min.). @ -None done What testing was considered but not performed or refused? (CT, X-rays, U/S, labs)? Why? @ -None What meds were considered but not given or refused? Why? @ -None Did you discuss the management of the patient with other professionals (professionals i.e. , PA, [facility], lab, RT, psych nurse, social services coordinator, lepidopterist, teacher, community reinvestment act officer, case management specialist)? Give summary @ -Case discussed with Dr. Dailey who will admit covering this ND patient Was smoking cessation discussed for >3mins.? @ -No Was critical care preformed (if so, how long)? @ -No Were there social determinants of health that impacted care today? How? (Home lessness, low income, unemployed, alcoholism, drug addiction, transportation, low edu. Level, literacy, decrease access to med. care, care home, rehab)? @ -No Was there de-escalation of care discussed even if they declined (Discuss DNR or withdrawal of care, Hospice)? DNR status @ -No What co-morbidities impacted this encounter? (DM, HTN, Smoking, COPD, CAD, Cancer, CVA, ARF, Chemo, Hep., AIDS, mental health diagnosis, sleep apnea, morbid obesity)? @ -COPD history Was patient admitted / discharged? Hospital course, mention meds given and route, prescriptions, significant lab abnormalities, going to OR and other pertinent info. @ -Patient presents with difficulty breathing and hypoxia. Patient does have leukocytosis however has recently been on steroids. Patient is hypoxic and tachypneic. Patient will be admitted with continued steroids and pulmonary consult, admission orders written. Patient updated. Undiagnosed new problem with uncertain prognosis? @ -No Drug Therapy requiring intensive monitoring for toxicity (Heparin, Nitro, Insulin, Cardizem)? @ -No Were any procedures done? @ -No Diagnosis/symptom? @ -COPD, COVID-19 Acute, or Chronic, or Acute on Chronic? @ -Acute, acute Uncomplicated (without systemic symptoms) or Complicated (systemic symptoms)? @ -Located with COVID-19 infection Side effects of treatment? @ -No Exacerbation, Progression, or Severe Exacerbation? @ -Exacerbation of COPD Poses a threat to life or bodily function? How? (Chest pain, [place], [place], pneumonia, PE, COPD, DKA, ARF, appy, cholecystitis, CVA, Diverticulitis, Homicidal, Suicidal, threat to staff... and all critical care pts) @ -Pulmonary function - Lab Data Result diagrams: 04/10/24 16:06 04/10/24 16:06 Lab Results 04/10/24 04/10/24 04/10/24 Range/Units 15:56 16:06 16:06 WBC 19.7 H (3.8-10.6) k/uL RBC 5.25 (4.30-5.90) m/uL Hgb 14.6 (13.0-17.5) gm/dL Hct 44.2 (39.0-53.0) % MCV 84.2 (80.0-100.0) fL MCH 27.8 (25.0-35.0) pg MCHC 33.1 (31.0-37.0) g/dL RDW 14.0 (11.5-15.5) % Plt Count 312 (150-450) k/uL MPV 7.7 Neutrophils % 92 % Lymphocytes % 3 % Monocytes % 5 % Eosinophils % 0 % Basophils % 0 % Neutrophils # 18.0 H (1.3-7.7) k/uL Lymphocytes # 0.5 L (1.0-4.8) k/uL Monocytes # 0.9 (0-1.0) k/uL Eosinophils # 0.0 (0-0.7) k/uL Basophils # 0.1 (0-0.2) k/uL PT 10.5 (10.0-12.5) sec INR 0.9 (<1.2) APTT 19.8 L (22.0-30.0) sec Sodium (137-145) mmol/L Potassium (3.5-5.1) mmol/L Chloride (98-107) mmol/L Carbon Dioxide (22-30) mmol/L Anion Gap mmol/L BUN (9-20) mg/dL Creatinine (0.66-1.25) mg/dL Est GFR (CKD-EPI)AfAm (>60 ml/min/1.73 sqM) Est GFR (CKD-EPI)NonAf (>60 ml/min/1.73 sqM) Glucose (74-99) mg/dL Plasma Lactic Acid Sandor (0.7-2.0) mmol/L Calcium (8.4-10.2) mg/dL Magnesium (1.6-2.3) mg/dL Total Bilirubin (0.2-1.3) mg/dL AST (17-59) U/L ALT (4-49) U/L Alkaline Phosphatase (38-126) U/L NT-Pro-B Natriuret Pep pg/mL Total Protein (6.3-8.2) g/dL Albumin (3.5-5.0) g/dL Influenza Type A (PCR) Not Detected (Not Detectd) Influenza Type B (PCR) Not Detected (Not Detectd) RSV (PCR) Not Detected (Not Detectd) SARS-CoV-2 (PCR) Detected A (Not Detectd) 04/10/24 04/10/24 Range/Units 16:06 16:06 WBC (3.8-10.6) k/uL RBC (4.30-5.90) m/uL Hgb (13.0-17.5) gm/dL Hct (39.0-53.0) % MCV (80.0-100.0) fL MCH (25.0-35.0) pg MCHC (31.0-37.0) g/dL RDW (11.5-15.5) % Plt Count (150-450) k/uL MPV Neutrophils % % Lymphocytes % % Monocytes % % Eosinophils % % Basophils % % Neutrophils # (1.3-7.7) k/uL Lymphocytes # (1.0-4.8) k/uL Monocytes # (0-1.0) k/uL Eosinophils # (0-0.7) k/uL Basophils # (0-0.2) k/uL PT (10.0-12.5) sec INR (<1.2) APTT (22.0-30.0) sec Sodium 127 L (137-145) mmol/L Potassium 4.6 (3.5-5.1) mmol/L Chloride 91 L (98-107) mmol/L Carbon Dioxide 26 (22-30) mmol/L Anion Gap 10 mmol/L BUN 38 H (9-20) mg/dL Creatinine 1.11 (0.66-1.25) mg/dL Est GFR (CKD-EPI)AfAm 74 (>60 ml/min/1.73 sqM) Est GFR (CKD-EPI)NonAf 64 (>60 ml/min/1.73 sqM) Glucose 195 H (74-99) mg/dL Plasma Lactic Acid Sandor 4.7 H* (0.7-2.0) mmol/L Calcium 9.0 (8.4-10.2) mg/dL Magnesium 1.9 (1.6-2.3) mg/dL Total Bilirubin 1.0 (0.2-1.3) mg/dL AST 24 (17-59) U/L ALT 26 (4-49) U/L Alkaline Phosphatase 49 (38-126) U/L NT-Pro-B Natriuret Pep 361 pg/mL Total Protein 6.3 (6.3-8.2) g/dL Albumin 4.0 (3.5-5.0) g/dL Influenza Type A (PCR) (Not Detectd) Influenza Type B (PCR) (Not Detectd) RSV (PCR) (Not Detectd) SARS-CoV-2 (PCR) (Not Detectd) Disposition Clinical Impression: COPD with acute exacerbation, COVID-19 Disposition: ADMITTED IP TO THIS HOSP Is patient prescribed a controlled substance at d/c from ED?: No Referrals: [facility],Clinic [Primary Care Provider] - 1-2 days Time of Disposition: 18:49
[2024-04-10] MEDS: methylPREDNISolone SOD SUCCI 125 MG/2 ML VIAL IV STA (16:01)
[2024-04-10 16:30] LABS: Basophils # (A) 0.1 k/uL (0-0.2); Basophils % (A) 0 %; Eosinophils % (A) 0 %; HCT 44.2 % (39.0-53.0); HGB 14.6 gm/dL (13.0-17.5); Lymphocytes # (A) 0.5 k/uL (1.0-4.8); Lymphocytes % (A) 3 %; MCH 27.8 pg (25.0-35.0); MCHC 33.1 g/dL (31.0-37.0); MCV 84.2 fL (80.0-100.0); Mean Platelet Volume 7.7; Monocytes # (A) 0.9 k/uL (0-1.0); Monocytes % (A) 5 %; Neutrophils % (A) 92 %; Platelet Count 312 k/uL (150-450); RBC 5.25 m/uL (4.30-5.90); WBC 19.7 k/uL (3.8-10.6)
--- NOTE | 2024-04-10 16:35 | XR ---
EXAMINATION TYPE: XR chest 2V DATE OF EXAM: 04/10/2024 4:31 PM COMPARISON: Numerous prior chest radiograph, most recently dated 04/06/2024. CLINICAL INDICATION: Male, 78 years old with history of difficulty breathing; [facility] TECHNIQUE: XR chest 2V Frontal and lateral views of the chest. FINDINGS: Lungs/Pleura: There is no evidence of pleural effusion, focal consolidation, or pneumothorax. Lungs mildly hyperinflated with coarsening of the interstitial markings. Pulmonary vascularity: Unremarkable. Heart/mediastinum: Cardiomediastinal silhouette is unremarkable. Musculoskeletal: No acute osseous pathology. Other findings: None IMPRESSION: No acute cardiopulmonary disease/process. [facility], , 04/10/2024 4:32 PM
[2024-04-10 16:48] LABS: INR 0.9 (<1.2); Prothrombin Time 10.5 sec (10.0-12.5)
[2024-04-10 16:49] LABS: AST 24 U/L (17-59); African American GFR (CKD) 74 (>60 ml/min/1.73 sqM); Alkaline Phosphatase 49 U/L (38-126); Anion Gap 10 mmol/L; Blood Urea Nitrogen 38 mg/dL (9-20); Carbon Dioxide 26 mmol/L (22-30); Chloride 91 mmol/L (98-107); Glucose 195 mg/dL (74-99); Magnesium 1.9 mg/dL (1.6-2.3); Non-African American GFR(CKD) 64 (>60 ml/min/1.73 sqM); Partial Thromboplastin Time 19.8 sec (22.0-30.0); Potassium 4.6 mmol/L (3.5-5.1); Sodium 127 mmol/L (137-145); Total Protein 6.3 g/dL (6.3-8.2)
[2024-04-10] MEDS: ALBUTEROL HFA INHALER INHALATION STA (16:50)
[2024-04-10 16:55] LABS: NT-Pro-B-Type Natriuretic Pept 361 pg/mL
[2024-04-10 17:06] LABS: ALT 26 U/L (4-49)
[2024-04-10] MEDS ORDERED: IPRATROPIUM-ALBUTEROL 3 ML NEB INHALATION PRN (19:04)
[2024-04-10] MEDS ORDERED: NALOXONE 0.4 MG/ML 1 ML VIAL IVP PRN (19:04)
[2024-04-10] MEDS ORDERED: HYDROcodone/APAP 5-325MG 1 EACH TAB PO PRN (19:04)
[2024-04-10] MEDS ORDERED: ACETAMINOPHEN TAB 325 MG TAB PO PRN (19:04)
[2024-04-10] MEDS ORDERED: ALBUTEROL HFA INHALER INHALATION PRN ×2 (19:33→23:14)
[2024-04-10] MEDS ORDERED: IPRATROPIUM-ALBUTEROL 3 ML NEB INHALATION SCH (20:00)
[2024-04-10] MEDS: ALBUTEROL HFA INHALER INHALATION SCH (20:45)
[2024-04-10] MEDS ORDERED: ALBUTEROL NEBULIZED 2.5 MG/3 ML INHALATION PRN (20:56)
[2024-04-10] MEDS: METOPROLOL TARTRATE 25 MG TAB PO SCH (21:37)
[2024-04-10] MEDS: CHOLECALCIFEROL 25 MCG (1000 IU) TABLET PO SCH (21:37)
[2024-04-10] MEDS: ATORVASTATIN 20 MG TAB PO SCH (21:37)
[2024-04-10] MEDS: GABAPENTIN 100 MG CAP PO SCH (21:37)
--- NOTE | 2024-04-10 22:58 | P.HPIM ---
History of Present Illness H&P Date: 04/10/24 Chief Complaint: COPD, COVID-19 positive, hyponatremia Patient is a 78-year-old male with past medical history of COPD on 3 L home oxygen, uwm-uunezfi-dqsxhaivk diabetes mellitus, congestive heart failure (unknown EF), GERD, hyperlipidemia, hypertension, myocardial infarction with heart catheterization and stent placement, history of bilateral PEs in 2003, alcohol abuse, chronic low back pain, history of urinary retention and nephrolithiasis presented to the emergency department with difficulty breathing. Patient was just discharged yesterday, symptoms worsened again this morning and he decided to come in for assessment. During his last hospitalization, patient was treated for acute on chronic hypoxic respiratory failure, secondary to COPD exacerbation. Patient also notes that his Oxygen concentrator had stopped working today, which also prompted him to seek help since he is chronically oxygen dependent. Patient reports that his shortness of breath gets worse with moving/walking and would get short winded after getting out of the bed and walking for a few steps. Patient also reported lightheadedness and coughing up some white sputum. Patient also endorses having a low stream of urine, denies being on Flomax at home. Patient also tested positive for COVID. He currently denies fever, chills, nausea, vomiting, chest pain, dysuria, diarrhea or constipation. ED documentation reviewed. In the ED patient was treated with DuoNeb x 1, Solu- Medrol 125 mg IV x 1, albuterol inhaler Vitals on admission temperature 97.3, heart rate 98, respiratory rate 18, blood pressure 133/87, O2 sat of 99% on nasal cannula at 3 L/min. EKG independently interpreted as sinus tachycardia, minimal ST depression CXR shows no acute cardiopulmonary disease/process. Labs on admission show WBC 19.7, hemoglobin 14.2, hematocrit 44.2, platelet 312, PT 10.5, PTT 19.8, INR 0.9, sodium 127, potassium 4.6, chloride 91, carbon dioxide 26, BUN 38, creatinine 1.11, glucose 195, lactic acid 4.7, BNP 361 Serology tested positive for COVID Review of systems: Pertinent positives and negatives as discussed in HPI, a complete review of systems was performed and all other systems are negative. PMH: COPD on 3 L home oxygen, gjb-wytmswa-omicpsots diabetes mellitus, congestive heart failure (unknown EF), GERD, hyperlipidemia, hypertension, myocardial infarction with heart catheterization and stent placement, history of bilateral PEs in 2003, alcohol abuse, chronic low back pain, history of urinary retention and nephrolithiasis PSH: Heart cath with stent FMH: Mother had a history of breast cancer, father had a history of coronary artery disease and myocardial infarction Allergies: Fluticasone, levofloxacin, salmeterol Social history: Tobacco: Former smoker, quit 15 years ago Alcohol: Former alcohol abuse, quit 15 years ago Recreational drugs: Denies use Travel: No recent travel history Sick contacts: No recent sick contacts Physical examination: Vital signs reviewed General: nontoxic, no distress, appears at stated age, obese Derm: warm, dry, intact Head: atraumatic, normocephalic, symmetric Eyes: EOMI, anicteric sclera Mouth: no lip lesion, mucus membranes moist Cardiovascular: S1 S2 reg, no murmur Lungs: Diffuse expiratory wheezing across all lung henry, labored breathing Abdominal: soft, non-tender to palpation Extremities: No cyanosis, clubbing. Trace edema in bilateral lower extremity. Neuro: Alert, Oriented, Gross neurological examination did not reveal any focal deficits. Cranial nerves II to XII grossly intact. Bilateral upper and lower extremity muscle strength intact 5 out of 5. Bilateral upper and lower extremity sensation intact. Psych: well appearing, appropriate affect Assessment/Plan: Patient is a 78-year-old male with past medical history of COPD on 3 L home oxygen, oom-svdpatb-xcwvsochd diabetes mellitus, congestive heart failure (unknown EF), GERD, hyperlipidemia, hypertension, myocardial infarction with heart catheterization and stent placement, history of bilateral PEs in 2003, alcohol abuse, chronic low back pain, history of urinary retention and nephrolithiasis presented to the emergency department with difficulty breathing. Patient will be admitted to inpatient medicine service. Active: #. Acute COPD exacerbation #. Leukocytosis, possibly reactive to steroids #. COVID-positive Continue Symbicort inhaled bid Continue with Duonebs [id number] QID and prn Initiate Solumedrol 60 mg q6h IV WBC of 19.7, possibly reactive to steroids Morning CBC Consult Pulmonary #. Lactic acidosis, resolved #. Hypochloremic Hyponatremia, suspect poor intake Normal saline at 75 cc an hour Morning BMP # Pre-renal azotemia, likely due to dehydration C/w NS 75 ml/hr Chronic: #. Congestive heart failure, unknown ejection fraction, not in current ex acerbation #. History of CAD, heart catheterization and stent placement #. Hypertension #. Hyperlipidemia Restart home medications Aspirin 81 mg daily Plavix 75 mg daily Lisinopril 2.5 mg Hold home Spironolactone for now C/w Simvastatin 40 mg and Metoprolol tartrate 25 mg twice daily Obtain Echocardiogram #. Ulx-ivmyysi-hxidromun diabetes mellitus Low-dose sliding scale insulin Continue glucose monitoring #. GERD Restart Protonix 40 mg #. Neuropathy Restart gabapentin 100 mg twice daily #. Peripheral arterial disease, chronic Plavix 75 mg daily Aspirin 81 mg daily #. History of bilateral pulmonary embolism On Lovenox F: No restrictions E: Replete as needed N: Heart healthy diet A: Ambulatory DVT prophylaxis: Lovenox 40 mg subcu daily The patient is admitted with an anticipated more than 2 midnight stay for evaluation of shortness of breath CODE STATUS: Full code Discussed with: Patient Anticipated discharge place: Home Past Medical History Past Medical History: Coronary Artery Disease (CAD), COPD, GERD/Reflux, Hyperlipidemia, Hypertension, Myocardial Infarction ([place]), Pulmonary Embolus (PE), Renal Disease Additional Past Medical History / Comment(s): Home oxygen prn and pt states he usually wears at night at 2.5 liters, bilateral PEs in 2003, ETOH abuse-pt states he has never had withdrawal symptoms, chronic low back pain/sciatica/spurs/disc disease much improved after back injections, past urinary retention, diverticulitis/benign colon polyps removed, nephrolithiasis- passed stones on his own, shingelles 16 years ago-R shoulder. Last Myocardial Infarction Date:: 2010 History of Any Multi-Drug Resistant Organisms: None Reported Past Surgical History: Heart Catheterization With Stent Additional Past Surgical History / Comment(s): Back injections for pain, piece of metal removed from rt eye, EGD, colonoscopy Past Anesthesia/Blood Transfusion Reactions: No Reported Reaction Additional Past Anesthesia/Blood Transfusion Reaction / Comment(s): claustrophobia Date of Last Stent Placement:: 2010 Past Psychological History: Anxiety, Depression, PTSD Smoking Status: Former smoker Past Alcohol Use History: None Reported Past Drug Use History: None Reported - Past Family History Mother Family Medical History: Cancer Additional Family Medical History / Comment(s): from breast cancer at age 53 Father Family Medical History: Coronary Artery Disease (CAD), Myocardial Infarction ([place]) Additional Family Medical History / Comment(s): 4 mi's/CABG. at at age 72 Medications and Allergies Home Medications Medication Instructions Recorded Confirmed Type Aspirin EC [Ecotrin Low Dose] 81 mg PO DAILY 06/22/18 04/10/24 History Budesonide/Formoterol Fumarate 2 puff INHALATION RT-BID 06/22/18 04/10/24 History [Symbicort 160-4.5 Mcg Inhaler] Ipratropium/Albuterol Sulfate 1 puff INHALATION RT-QID 06/22/18 04/10/24 History [Combivent Respimat Inhaler] Metoprolol Tartrate [Lopressor] 25 mg PO BID 06/22/18 04/10/24 History Spironolactone 25 mg PO DAILY 06/22/18 04/10/24 History lisinopriL [Zestril] 2.5 mg PO HS 06/22/18 04/10/24 History Clopidogrel Bisulfate [Plavix] 75 mg PO DAILY 07/01/18 04/10/24 History Albuterol Inhaler [Ventolin Hfa 2 puff INHALATION RT-Q6H PRN 12/07/19 04/10/24 History Inhaler] Albuterol Nebulized [Ventolin 2.5 mg INHALATION RT-QID 12/07/19 04/10/24 History Nebulized] Loratadine [Claritin] 10 mg PO DAILY 12/07/19 04/10/24 History Simvastatin [Zocor] 40 mg PO HS 12/07/19 04/10/24 History Tiotropium 18 Mcg/Puff [Spiriva] 2 puff INHALATION RT-DAILY 12/07/19 04/10/24 History Cholecalciferol [Vitamin D3 (25 25 mcg PO BID 03/17/24 04/10/24 History Mcg = 1000 Iu)] Furosemide [Lasix] 40 mg PO DAILY 03/17/24 04/10/24 History Ferrous Sulfate [Iron (65 MG 325 mg PO W/LUNCH 04/06/24 04/10/24 History Elemental)] Folic Acid 1 mg PO DAILY 04/06/24 04/10/24 History Gabapentin [Neurontin] 100 mg PO BID 04/06/24 04/10/24 History Pantoprazole [Protonix] 40 mg PO W/BRKFST 04/06/24 04/10/24 History Vitamin B-12 50mcg 50 mcg PO DAILY 04/06/24 04/10/24 History metFORMIN HCL 500 mg PO BID-W/MEALS 04/06/24 04/10/24 History predniSONE [Deltasone] 40 mg PO DAILY #6 tab 04/08/24 04/10/24 Rx Allergies Allergy/AdvReac Type Severity Reaction Status Date / Time fluticasone AdvReac Nausea Verified 04/10/24 19:06 [From [facility]] [facility] AdvReac TENDON PAIN Verified 04/10/24 19:06 salmeterol AdvReac Nausea Verified 04/10/24 19:06 [From [facility]] Physical Exam Vitals: Vital Signs Temp Pulse Resp BP Pulse Ox 04/10/24 18:48 98 18 133/87 99 04/10/24 15:40 102 H 16 107/65 04/10/24 15:15 97.3 F L 80 26 H 129/69 90 L Intake and Output 04/10/24 04/10/24 04/10/24 06:59 14:59 22:59 Other: Weight 113.852 kg Results CBC & Chem 7: 04/10/24 16:06 04/10/24 16:06 Labs: Abnormal Lab Results - Last 24 Hours (Table) 04/10/24 04/10/24 04/10/24 Range/Units 15:56 16:06 16:06 WBC 19.7 H (3.8-10.6) k/uL Neutrophils # 18.0 H (1.3-7.7) k/uL Lymphocytes # 0.5 L (1.0-4.8) k/uL APTT 19.8 L (22.0-30.0) sec Sodium (137-145) mmol/L Chloride (98-107) mmol/L BUN (9-20) mg/dL Glucose (74-99) mg/dL Plasma Lactic Acid Sandor (0.7-2.0) mmol/L SARS-CoV-2 (PCR) Detected A (Not Detectd) 04/10/24 04/10/24 Range/Units 16:06 16:06 WBC (3.8-10.6) k/uL Neutrophils # (1.3-7.7) k/uL Lymphocytes # (1.0-4.8) k/uL APTT (22.0-30.0) sec Sodium 127 L (137-145) mmol/L Chloride 91 L (98-107) mmol/L BUN 38 H (9-20) mg/dL Glucose 195 H (74-99) mg/dL Plasma Lactic Acid Sandor 4.7 H* (0.7-2.0) mmol/L SARS-CoV-2 (PCR) (Not Detectd)
[2024-04-11] MEDS ORDERED: IPRATROPIUM-ALBUTEROL 3 ML NEB INHALATION PRN (00:06)
[2024-04-11] MEDS: methylPREDNISolone SOD SUCCI 125 MG/2 ML VIAL IV SCH (00:14)
[2024-04-11] MEDS ORDERED: DEXTROSE 50% SYRINGE 50 ML IVP PRN ×2 (00:18)
[2024-04-11] MEDS: SODIUM CHLORIDE 0.9% 1,000 ML IV SCH (00:20)
[2024-04-11 02:38] LABS: Glucose,Whole Blood 168 mg/dL (70-110)
--- NOTE | 2024-04-11 05:49 | P.CNPUL ---
History of Present Illness Consult date: 04/11/24 Requesting physician: Orlando Jean Reason for consult: dyspnea Chief complaint: Progressively worsening shortness of breath since discharged less than 24 h History of present illness: Patient is a 78-year-old male with past medical history significant for COPD, chronic oxygen dependence, hypertension, hyperlipidemia, PAD, heart failure, among other things. Patient follows in the pulmonary office with Dr. Vargas, for management of his very severe COPD. He has an FEV1 from 29% of predicted. Normally, maintained on oxygen 3 L/min nasal cannula at night. He utilizes a combination of Breyna, Spiriva, and albuterol nebs [id number]. Note, patient was recently admitted for an exacerbation of COPD. He was eager to be discharged on Thursday. Sent home on prednisone taper, however, unable to get these medications from pharmacy. Also, his oxygen concentrator is reportedly not working at home. He returns less than 24 hours later, with worsening shortness of breath. Associated nonproductive cough. Denies any fevers, chills, sputum production, hemoptysis, chest pain. Denies any nausea, vomiting, diarrhea. Oral intake has been poor. He has been weak, and did have a fall at home. Denies hitting his head or losing consciousness. Denies anticoagulant use. COVID PCR was positive on this admission, previously was negative. States he was previously vaccinated for COVID, but not up to date with current booster injection. No past known covid infections. Chest x-ray did not show any focal infiltrates or evidence of pneumonia. CBC: WBC count 19.7, hemoglobin 14.6, hematocrit 44.2, platelets 312. CMP: Sodium 127, potassium 4.6, chloride 91, serum bicarb 26, BUN 38, creatinine 1.11, glucose 195. Lactic was 4.7 and down to 1.6. LFTs unremarkable. NT proBNP 361. Is currently being evaluated in the emergency department. Not in any respiratory distress. Speaks in full sentences, without conversational dyspnea. Current vitals: SpO2 98% on 3 L/min nasal cannula, nontachypneic, heart rate 60 bpm, blood pressure 119/67 mmHg. Review of Systems Constitutional: Reports fatigue, Reports poor appetite, Denies chills, Denies fever, Denies weight gain, Denies weight loss Ears, nose, mouth and throat: Denies headache, Denies nasal congestion, Denies nasal discharge, Denies post-nasal drip, Denies sinus pain, Denies sinus pressure, Denies sore throat Cardiovascular: Reports decreased exercise tolerance, Denies chest pain, Denies leg edema, Denies lightheadedness, Denies orthopnea, Denies palpitations, Denies paroxysmal nocturnal dyspnea, Denies syncope Respiratory: Reports as per HPI Gastrointestinal: Denies abdominal pain, Denies diarrhea, Denies nausea, Denies vomiting Genitourinary: Denies dysuria Musculoskeletal: Denies limitation of motion Integumentary: Denies rash Neurological: Denies head injury, Denies seizures, Denies syncope Psychiatric: Denies anxiety, Denies depression Past Medical History Past Medical History: Coronary Artery Disease (CAD), COPD, GERD/Reflux, Hyperlipidemia, Hypertension, Myocardial Infarction (OK), Pulmonary Embolus ( PE), Renal Disease Additional Past Medical History / Comment(s): Home oxygen prn and pt states he usually wears at night at 2.5 liters, bilateral PEs in 2003, ETOH abuse-pt st ates he has never had withdrawal symptoms, chronic low back pain/sciatica/spurs/disc disease much improved after back injections, past urinary retention, diverticulitis/benign colon polyps removed, nephrolithiasis- passed stones on his own, shingelles 16 years ago-R shoulder. Last Myocardial Infarction Date:: 2010 History of Any Multi-Drug Resistant Organisms: None Reported Past Surgical History: Heart Catheterization With Stent Additional Past Surgical History / Comment(s): Back injections for pain, piece of metal removed from rt eye, EGD, colonoscopy Past Anesthesia/Blood Transfusion Reactions: No Reported Reaction Additional Past Anesthesia/Blood Transfusion Reaction / Comment(s): claustrophobia Date of Last Stent Placement:: 2010 Past Psychological History: Anxiety, Depression, PTSD Smoking Status: Former smoker Past Alcohol Use History: None Reported Past Drug Use History: None Reported - Past Family History Mother Family Medical History: Cancer Additional Family Medical History / Comment(s): from breast cancer at age 5 3 Father Family Medical History: Coronary Artery Disease (CAD), Myocardial Infarction (OK) Additional Family Medical History / Comment(s): 4 mi's/CABG. at at age 72 Medications and Allergies Home Medications Medication Instructions Recorded Confirmed Type Aspirin EC [Ecotrin Low Dose] 81 mg PO DAILY 06/22/18 04/10/24 History Budesonide/Formoterol Fumarate 2 puff INHALATION RT-BID 06/22/18 04/10/24 History [Symbicort 160-4.5 Mcg Inhaler] Ipratropium/Albuterol Sulfate 1 puff INHALATION RT-QID 06/22/18 04/10/24 History [Combivent Respimat Inhaler] Metoprolol Tartrate [Lopressor] 25 mg PO BID 06/22/18 04/10/24 History Spironolactone 25 mg PO DAILY 06/22/18 04/10/24 History lisinopriL [Zestril] 2.5 mg PO HS 06/22/18 04/10/24 History Clopidogrel Bisulfate [Plavix] 75 mg PO DAILY 07/01/18 04/10/24 History Albuterol Inhaler [Ventolin Hfa 2 puff INHALATION RT-Q6H PRN 12/07/19 04/10/24 History Inhaler] Albuterol Nebulized [Ventolin 2.5 mg INHALATION RT-QID 12/07/19 04/10/24 History Nebulized] Loratadine [Claritin] 10 mg PO DAILY 12/07/19 04/10/24 History Simvastatin [Zocor] 40 mg PO HS 12/07/19 04/10/24 History Tiotropium 18 Mcg/Puff [Spiriva] 2 puff INHALATION RT-DAILY 12/07/19 04/10/24 History Cholecalciferol [Vitamin D3 (25 25 mcg PO BID 03/17/24 04/10/24 History Mcg = 1000 Iu)] Furosemide [Lasix] 40 mg PO DAILY 03/17/24 04/10/24 History Ferrous Sulfate [Iron (65 MG 325 mg PO W/LUNCH 04/06/24 04/10/24 History Elemental)] Folic Acid 1 mg PO DAILY 04/06/24 04/10/24 History Gabapentin [Neurontin] 100 mg PO BID 04/06/24 04/10/24 History Pantoprazole [Protonix] 40 mg PO W/BRKFST 04/06/24 04/10/24 History Vitamin B-12 50mcg 50 mcg PO DAILY 04/06/24 04/10/24 History metFORMIN HCL 500 mg PO BID-W/MEALS 04/06/24 04/10/24 History predniSONE [Deltasone] 40 mg PO DAILY #6 tab 04/08/24 04/10/24 Rx Allergies Allergy/AdvReac Type Severity Reaction Status Date / Time fluticasone AdvReac Nausea Verified 04/10/24 19:06 [From [facility]] levofloxacin [From Levaquin] AdvReac TENDON PAIN Verified 04/10/24 19:06 salmeterol AdvReac Nausea Verified 04/10/24 19:06 [From [facility]] Physical Exam Vitals: Vital Signs Temp Pulse Resp BP Pulse Ox 04/11/24 02:00 60 18 119/67 100 04/11/24 01:00 64 18 100 04/11/24 00:00 56 L 18 116/60 98 04/10/24 23:00 58 L 18 128/63 98 04/10/24 22:00 88 18 118/62 97 04/10/24 21:00 80 20 135/61 98 04/10/24 20:00 97.8 F 76 20 114/80 98 04/10/24 18:48 98 18 133/87 99 04/10/24 15:40 102 H 16 107/65 04/10/24 15:15 97.3 F L 80 26 H 129/69 90 L Intake and Output 04/10/24 04/10/24 04/11/24 14:59 22:59 06:59 Other: Weight 113.852 kg GENERAL EXAM: Alert, 78-year-old male, comfortable in no apparent distress. HEAD: Normocephalic and atraumatic EYES: Normal reaction of pupils, equal size. NOSE: Clear with pink turbinates. THROAT: No erythema or exudates. NECK: No masses, no JVD. CHEST: No chest wall deformity. LUNGS: Equal air entry with faint expiratory wheezes heard bilaterally and throughout. On 3 L/min nasal cannula. No conversational dyspnea or accessory muscle use.. CVS: S1 and S2 normal with no audible murmur, regular rhythm. No extra heart sounds ABDOMEN: No hepatosplenomegaly, active bowel sounds, no guarding or rigidity. SPINE: No scoliosis or deformity SKIN: No rashes CENTRAL NERVOUS SYSTEM: No focal deficits, tone is normal in all 4 extremities. EXTREMITIES: There is mild 1+ bilateral lower extremity edema. No clubbing or cyanosis. Peripheral pulses are intact. Results - Laboratory Findings CBC and BMP: 04/11/24 06:10 04/11/24 06:10 PT/INR, D-dimer PT 10.5 sec (10.0-12.5) 04/10/24 16:06 INR 0.9 (<1.2) 04/10/24 16:06 Abnormal lab findings: Abnormal Labs 04/10/24 04/10/24 04/10/24 15:56 16:06 16:06 WBC 19.7 H Neutrophils # 18.0 H Lymphocytes # 0.5 L APTT 19.8 L Sodium Chloride BUN Glucose POC Glucose (mg/dL) Plasma Lactic Acid Sandor SARS-CoV-2 (PCR) Detected A 04/10/24 04/10/24 04/11/24 16:06 16:06 02:37 WBC Neutrophils # Lymphocytes # APTT Sodium 127 L Chloride 91 L BUN 38 H Glucose 195 H POC Glucose (mg/dL) 168 H Plasma Lactic Acid Sandor 4.7 H* SARS-CoV-2 (PCR) - Diagnostic Findings Chest x-ray: image reviewed Assessment and Plan Assessment: Acute COPD exacerbation; chest x-ray does not show any acute cardiopulmonary process, including focal infiltrates or evidence of pneumonia. COVID-positive by PCR. Acute on top of chronic hypoxemic respiratory failure, secondary to above Acute leukocytosis, possibly reactive to steroids that he received during his recent hospitalization Acute kidney injury, improved Lactic acidemia, improved History of heart failure, with unknown ejection fraction History of hyperlipidemia History of hypertension History of CAD History of peripheral arterial disease Very severe chronic obstructive pulmonary disease, with an FEV1 29% of predicted, normally maintained on a combination of Breyna, Spiriva, albuterol nebs [id number] Chronic hypoxemic respiratory failure, secondary to above, normally oxygen dependent on 3 L/min nasal cannula mostly at bedtime Former tobacco dependence, quit smoking over 15 years ago Obesity, with a BMI of 40.5 kg/m Plan: Patient's medications, labs, chest x-ray reviewed Currently on 3 L/min nasal cannula; may wean to maintain SPO2 90% or greater COVID-positive by PCR; previously negative on 04/07/2024 Start patient on bronchodilators, Symbicort inhaler, and high-dose IV Solu- Medrol Patient may be candidate for remdesivir, will be discussed with Dr. Vargas DVT prophylaxis: Lovenox GI prophylaxis: Protonix We will continue to follow, additional recommendations forthcoming I have personally seen and examined the patient, performed the documentation and the assessment and plan as written. Number of minutes spent on the visit: On 04/11/2024, patient is being seen in the joint evaluation along with the nurse practitioner. The patient was discharged from the hospital after being treated for an acute COPD exacerbation. Immediately following his discharge and within the past few days, the patient had recurrence in his symptoms as the patient started having increased cough and congestion and wheezing and worsening shortness of breath. Noted during this current admission, the patient tested positive for COVID-19. This was probably a in-hospital infection that the patient contracted. Noted the patient has been vaccinated for COVID-19 in the past and he has not received any boosters. This is his only infection with COVID-19 but rule out any previous infection in the past. He is currently on oxygen at 3 L. Chest x-ray showed no acute pulmonary filtration or pneumonia. The white cell count of 9.9 with a hemoglobin 13.2. Sodium is at 132, BUN 26 with a creatinine of 1. The patient is currently on albuterol HFA 4 times a day, Symbicort 2 puffs twice a day, Spiriva 1 puff a day, and he was started again on IV Solu-Medrol 60 mg every 6 hours. No interval worsening in his oxygenation. No nausea vomiting or emesis. No altered mentation. His main complaint remains shortness of breath and ongoing symptoms of COPD exacerbation. This evaluation was done more than 30 minutes. Time with Patient: Greater than 30
[2024-04-11] MEDS: SYMBICORT 160-4.5 MCG INHALER INHALATION SCH (06:27)
[2024-04-11] MEDS: ALBUTEROL HFA INHALER INHALATION SCH (06:29)
[2024-04-11] MEDS: TIOTROPIUM 2.5 MCG INHALER INHALATION SCH (06:30)
[2024-04-11] MEDS: IPRATROPIUM-ALBUTEROL 3 ML NEB INHALATION SCH (06:30)
[2024-04-11] MEDS ORDERED: metFORMIN 500 MG TAB PO SCH (07:30)
[2024-04-11] MEDS ORDERED: IPRATROPIUM-ALBUTEROL 3 ML NEB INHALATION SCH (08:00)
[2024-04-11] MEDS ORDERED: IPRATROPIUM 0.5 MG/2.5 ML NEBU INHALATION SCH (08:00)
[2024-04-11] MEDS ORDERED: ALBUTEROL NEBULIZED 2.5 MG/3 ML INHALATION SCH (08:00)
[2024-04-11 08:35] LABS: Glucose,Whole Blood 151 mg/dL (70-110)
[2024-04-11] MEDS: PANTOPRAZOLE 40 MG TABLET PO SCH (08:35)
[2024-04-11] MEDS: ASPIRIN 81 MG PO SCH (08:35)
[2024-04-11] MEDS: ENOXAPARIN 40 MG/0.4 ML SYRINGE SQ SCH (08:35)
[2024-04-11] MEDS: FOLIC ACID 1 MG TAB PO SCH (08:35)
[2024-04-11] MEDS: CLOPIDOGREL 75 MG TAB PO SCH (08:35)
[2024-04-11] MEDS: LORATADINE 10 MG TAB PO SCH (08:35)
[2024-04-11] MEDS: CYANOCOBALAMIN 500 MCG TAB PO SCH (08:35)
[2024-04-11 08:46] LABS: Basophils # (A) 0.02 X 10*3/uL (0.00-0.10); Basophils % (A) 0.2 %; Eosinophils # (A) 0 X 10*3/uL (0.04-0.35); Eosinophils % (A) 0 %; HCT 39.9 % (39.6-50.0); HGB 13.2 g/dL (13.0-17.0); Lymphocytes # (A) 0.53 X 10*3/uL (0.90-5.00); Lymphocytes % (A) 5.3 %; MCH 27.7 pg (27.0-32.0); MCHC 33.1 g/dL (32.0-37.0); MCV 83.8 FL (80.0-97.0); Mean Platelet Volume 10.7 FL (9.5-12.2); NRBC Per 100 WBC 0 X 10*3/uL (0.00-0.01); Neutrophils # (A) 8.73 X 10*3/uL (1.80-7.70); Neutrophils % (A) 87.6 %; Platelet Count 289 X 10*3/uL (140-440); RBC 4.76 X 10*6/uL (4.40-5.60); RDW 14.2 % (11.5-14.5); WBC 9.97 X 10*3/uL (4.50-10.00)
[2024-04-11 08:49] LABS: Calcium 8.8 mg/dL (8.7-10.3); Carbon Dioxide 31.5 mmol/L (21.6-31.8); Chloride 92 mmol/L (96-109); Glucose 158 mg/dL (70-110); Potassium 4.7 mmol/L (3.5-5.5); Sodium 132 mmol/L (135-145)
[2024-04-11] MEDS: INSULIN ASPART (NovoLOG) 100 UNIT/ML VIAL SQ SCH (08:53)
[2024-04-11] MEDS ORDERED: FUROSEMIDE 40 MG TAB PO SCH (09:00)
[2024-04-11] MEDS ORDERED: SPIRONOLACTONE 25 MG TAB PO SCH (09:00)
[2024-04-11] MEDS ORDERED: DEXAMETHASONE SOD PHOSPHATE 10 MG/ML 1 ML VIAL IVP SCH (09:00)
[2024-04-11 11:34] LABS: Glucose,Whole Blood 129 mg/dL (70-110)
[2024-04-11] MEDS: FERROUS SULFATE 325 MG TAB PO SCH (12:07)
[2024-04-11 16:53] LABS: Glucose,Whole Blood 167 mg/dL (70-110)
--- NOTE | 2024-04-11 17:29 | CA ---
Transthoracic Echo Report Name: Tiburcio Francisco Age: 78 Gender: M : 1945 Exam Date: 04/11/2024 11:44 Exam Location: [facility] Ht (in): 66 Wt (lb): 251 Ordering Physician: Adeel Campuzano DO Attending/Referring Phys: Vendor Manager Esperanza Isabel RDCS Procedure CPT: Indications: history of congestive heart failure Cardiac Hx: Technical Quality: Technically difficult study Contrast 1: Definity Total Dose (mL): 2 Contrast 2: Total Dose (mL): MEASUREMENTS (Male / Female) Normal Values 2D ECHO LV Diastolic Diameter PLAX 4.8 cm 4.2 - 5.9 / 3.9 - 5.3 cm LV Systolic Diameter PLAX 3.2 cm IVS Diastolic Thickness 0.9 cm 0.6 - 1.0 / 0.6 - 0.9 cm LVPW Diastolic Thickness 1.2 cm 0.6 - 1.0 / 0.6 - 0.9 cm LV Relative Wall Thickness 0.4 RV Internal Dim ED PLAX 3.5 cm LA Systolic Diameter LX 4.0 cm 3.0 - 4.0 / 2.7 - 3.8 cm LA Volume 43.2 cm??? 18 - 58 / 22 - 52 cm??? LA Volume Index 18.3 cm???/m??? 16 - 28 cm???/m??? M-MODE Aortic Root Diameter MM 3.8 cm AV Cusp Separation MM 2.1 cm DOPPLER AV Peak Velocity 123.2 cm/s AV Peak Gradient 6.1 mmHg MV Area PHT 2.0 cm??? Mitral E Point Velocity 58.4 cm/s Mitral A Point Velocity 81.6 cm/s Mitral E to A Ratio 0.7 MV Deceleration Time 382.1 ms TR Peak Velocity 242.3 cm/s TR Peak Gradient 23.5 mmHg Right Ventricular Systolic Press 28.5 mmHg FINDINGS Left Ventricle Left ventricular ejection fraction is estimated at 55-60 %. Left ventricular cavity size normal. Left ventricular wall thickness normal. Right Ventricle Mild right ventricular dilatation. Right ventricular systolic pressure within normal limits. Right Atrium Normal right atrial size. No right atrial thrombus or mass seen. Left Atrium Normal left atrial size. No left atrial thrombus or mass present. Mitral Valve Structurally normal mitral valve. No mitral stenosis, regurgitation or prolapse. Aortic Valve Trileaflet aortic valve. No aortic valve stenosis or regurgitation. Tricuspid Valve Structurally normal tricuspid valve. Trace to mild tricuspid regurgitation. Pulmonic Valve Pulmonic valve not well visualized. No pulmonic regurgitation. Pericardium No pericardial or pleural effusion. Aorta Mild aortic dilatation at the level of the sinuses of valsalva 38 mm CONCLUSIONS Normal LV function Mild right ventricular dilation Previewed by: Dr. Zacarias Camacho MD (Electronically Signed) Final Date: 11 April 2024 17:28
--- NOTE | 2024-04-11 17:49 | P.PN ---
Subjective Progress Note Date: 04/11/24 Patient is a 78-year-old male with past medical history of COPD on 3 L home oxygen, lym-[id number]-[id number] diabetes mellitus, congestive heart failure (EF 55-60%), hyperlipidemia, hypertension, myocardial infarction with heart catheterization and stent placement, history of bilateral PEs in 2003, alcohol a buse, chronic low back pain, history of urinary retention, GERD, and nephrolithiasis presented to the emergency department with difficulty breathing. Patient was just discharged yesterday, symptoms worsened again this morning and he decided to come in for assessment. During his last hospitalization, patient was treated for acute on chronic hypoxic respiratory failure, secondary to COPD exacerbation. Patient also notes that his Oxygen concentrator had stopped working today, which also prompted him to seek help since he is chronically oxygen dependent. Patient reports that his shortness of breath gets worse with moving/walking and would get short winded after getting out of the bed and walki ng for a few steps. Patient also reported lightheadedness and coughing up some white sputum. Patient also endorses having a low stream of urine, denies being on Flomax at home. Patient also tested positive for COVID. He currently denies fever, chills, nausea, vomiting, chest pain, dysuria, diarrhea or constipation. He received DuoNeb x 1, Solu-Medrol 125 mg IV x 1, albuterol inhaler in the ED. Initial workup includes: Vitals on admission temperature 97.3, heart rate 98, respiratory rate 18, blood pressure 133/87, O2 sat of 99% on nasal cannula at 3 L/min. EKG independently interpreted as sinus tachycardia, minimal ST depression. CXR shows no acute cardiopulmonary disease/process. Labs on admission show WBC 19.7, hemoglobin 14.2, hematocrit 44.2, platelet 312, PT 10.5, PTT 19.8, INR 0.9, sodium 127, potassium 4.6, chloride 91, carbon dioxide 26, BUN 38, creatinine 1.11, glucose 195, lactic acid 4.7, BNP 361. Serology tested positive for COVID. 04/11. Patient seen and examined at bedside. No acute events overnight. No significant complaints today. Echocardiogram performed today: Normal LV function (EF 55-60%), mild right ventricular dilation. Labs: WBCs 9.97, hemoglobin 13.2, hematocrit 39.9, platelets 289, sodium 132, potassium 4.7, chloride 92, CO2 31.5, BUN 26, creatinine 1, glucose 158. Pertinent positives and negatives discussed above, a complete review of systems was performed and all the other systems were negative. Physical examination: Vital signs reviewed General: Nontoxic, no distress, appears stated age, well-appearing Derm: Warm, dry, intact Head: Atraumatic, normocephalic, symmetric Eyes: EOMI, anicteric sclera Mouth: No lip lesion, mucus membranes moist Cardiovascular: S1-S2 regular, no murmur Lungs: Expiratory wheezes bilaterally, no rhonchi, no rales, no accessory muscle use Abdominal: Soft, non-tender to palpation Extremities: No cyanosis, clubbing. Trace edema Neuro: Alert, oriented x 3, gross neurological examination did not reveal any focal deficits. Cranial nerves II to XII grossly intact. Psych: Appropriate affect and mood Assessment and Plan: Patient is a 78-year-old male with past medical history of COPD on 3 L home oxygen, [id number]-[id number] diabetes mellitus, congestive heart failure (EF 55-60%), GERD, hyperlipidemia, hypertension, myocardial infarction with heart catheterization and stent placement, history of bilateral PEs in 2003, chronic low back pain, history of urinary retention and nephrolithiasis admitted for acute COPD exacerbation and COVID-positive. Active #. Acute COPD exacerbation #. Leukocytosis, possibly reactive to steroids #. COVID-19 positive Symbicort twice daily Solu-Medrol 60 mg IV every 6 hours Ventolin HFA 4 times daily and as needed Spiriva daily Morning CBC Consult pulmonology, discussed the case with them today at bedside, we will hold off on remdesivir consider patient does not have any signs or symptoms of infection at this time, rather appears to be isolated COPD exacerbation #. Hypochloremia hyponatremia, possible poor intake. Improving. Monitor BMP Resolved #. Leukocytosis #. Lactic acidosis #. Acute kidney injury Chronic #. CHF, EF 55-60%, not in acute exacerbation #. History of CAD, heart catheterization stent placement #. Hypertension #. Hyperlipidemia Continue home medications Aspirin 81 mg PO daily Plavix 75 mg PO daily Lisinopril 2.5 mg PO daily Hold home Spironolactone for now Simvastatin 40 mg Metoprolol tartrate 25 mg PO twice daily #. Fxt-slrqhev-gonadwsns diabetes mellitus Low-dose sliding scale insulin Continue glucose monitoring #. Peripheral arterial disease Continue home medications #. History of bilateral pulmonary embolism Continue home medications #. GERD Protonix 40 mg PO daily F: 1500 cc restriction E: Replete as required N: Heart healthy diet A: Ambulatory DVT prophylaxis: Lovenox 40 mg subcutaneous daily GI prophylaxis: Protonix 40 mg Code status: Full code Anticipated discharge place: Home I saw and evaluated the patient during the luu and critical portions of this encounter, and discussed the case in detail with the resident author of this note, I agree with the Assessment and Plan, and my changes, if any, are highli ghted in blue. Objective - Vital Signs Vital signs: Vital Signs Temp 98.1 F 04/11/24 04:00 Pulse 55 L 04/11/24 04:00 Resp 18 04/11/24 04:00 BP 119/67 04/11/24 02:00 Pulse Ox 100 04/11/24 04:00 FiO2 Intake & Output 04/10/24 04/11/24 04/11/24 18:59 06:59 18:59 Weight 113.852 kg - Labs CBC & Chem 7: 04/11/24 06:10 04/11/24 06:10 Labs: Abnormal Lab Results - Last 24 Hours (Table) 04/10/24 04/10/24 04/10/24 Range/Units 15:56 16:06 16:06 WBC 19.7 H (3.8-10.6) k/uL Neutrophils # 18.0 H (1.3-7.7) k/uL Lymphocytes # 0.5 L (1.0-4.8) k/uL APTT 19.8 L (22.0-30.0) sec Sodium (137-145) mmol/L Chloride (98-107) mmol/L BUN (9-20) mg/dL Glucose (74-99) mg/dL POC Glucose (mg/dL) (70-110) mg/dL Plasma Lactic Acid Sandor (0.7-2.0) mmol/L SARS-CoV-2 (PCR) Detected A (Not Detectd) 04/10/24 04/10/24 04/11/24 Range/Units 16:06 16:06 02:37 WBC (3.8-10.6) k/uL Neutrophils # (1.3-7.7) k/uL Lymphocytes # (1.0-4.8) k/uL APTT (22.0-30.0) sec Sodium 127 L (137-145) mmol/L Chloride 91 L (98-107) mmol/L BUN 38 H (9-20) mg/dL Glucose 195 H (74-99) mg/dL POC Glucose (mg/dL) 168 H (70-110) mg/dL Plasma Lactic Acid Sandor 4.7 H* (0.7-2.0) mmol/L SARS-CoV-2 (PCR) (Not Detectd)
[2024-04-11 19:17] LABS: Glucose,Whole Blood 187 mg/dL (70-110)
[2024-04-11 22:23] LABS: Glucose,Whole Blood 159 mg/dL (70-110)
[2024-04-12 06:28] LABS: Glucose,Whole Blood 148 mg/dL (70-110)
[2024-04-12 08:31] VITALS: BP 147/80; PULSE 95; RESP 18; TEMP 97.9
[2024-04-12 08:47] LABS: BUN/Creat Ratio 27.44 Ratio (12.00-20.00); Blood Urea Nitrogen 24.7 mg/dL (9.0-27.0); Calcium 8.3 mg/dL (8.7-10.3); Carbon Dioxide 28.2 mmol/L (21.6-31.8); Chloride 96 mmol/L (96-109); Glucose 171 mg/dL (70-110); Magnesium 2.2 mg/dL (1.5-2.4); Potassium 4.7 mmol/L (3.5-5.5); Sodium 132 mmol/L (135-145)
[2024-04-12 09:08] LABS: Basophils # (A) 0.02 X 10*3/uL (0.00-0.10); Basophils % (A) 0.1 %; Eosinophils # (A) 0 X 10*3/uL (0.04-0.35); Eosinophils % (A) 0 %; HGB 12.4 g/dL (13.0-17.0); Lymphocytes # (A) 0.65 X 10*3/uL (0.90-5.00); Lymphocytes % (A) 4.3 %; MCH 27.9 pg (27.0-32.0); MCHC 33.5 g/dL (32.0-37.0); MCV 83.1 FL (80.0-97.0); Mean Platelet Volume 11.1 FL (9.5-12.2); Monocytes # (A) 0.33 X 10*3/uL (0.20-1.00); Monocytes % (A) 2.2 %; NRBC Per 100 WBC 0 X 10*3/uL (0.00-0.01); Neutrophils # (A) 13.64 X 10*3/uL (1.80-7.70); Neutrophils % (A) 90.5 %; Platelet Count 271 X 10*3/uL (140-440); RBC 4.45 X 10*6/uL (4.40-5.60); RDW 14.2 % (11.5-14.5); WBC 15.07 X 10*3/uL (4.50-10.00)
--- NOTE | 2024-04-12 17:43 | P.DS ---
Providers Date of admission: 04/10/24 19:04 Expected date of discharge: 04/12/24 Attending physician: Curt José MD Consults: 04/10/24 19:04 Consult Physician Routine Consulting Provider: Ayad Goddard Consult Reason/Comments: covid,copd Do you want consulting provider notified?: Yes Primary care physician: [facility] Course: Active #. Acute COPD exacerbation #. Leukocytosis, possibly reactive to steroids #. COVID-19 positive #. Acute kidney injury #. CHF, EF 55-60%, not in acute exacerbation #. History of CAD, heart catheterization stent placement #. Hypertension #. Hyperlipidemia #. Ulb-coggrnf-wvyvarrzl diabetes mellitus #. Peripheral arterial disease #. History of bilateral pulmonary embolism #. GERD Patient is a 78-year-old male with past medical history of COPD on 3 L home oxygen, epw-rtacqcd-dlidedush diabetes mellitus, congestive heart failure (EF 55-60%), hyperlipidemia, hypertension, myocardial infarction with heart cat heterization and stent placement, history of bilateral PEs in 2003, alcohol abuse, chronic low back pain, history of urinary retention, GERD, and nephrolithiasis presented to the emergency department with difficulty breathing. He received DuoNeb x 1, Solu-Medrol 125 mg IV x 1, albuterol inhaler in the ED. Initial workup includes: Vitals on admission temperature 97.3, heart rate 98, respiratory rate 18, blood pressure 133/87, O2 sat of 99% on nasal cannula at 3 L/min. EKG independently interpreted as sinus tachycardia, minimal ST depression. CXR shows no acute cardiopulmonary disease/process. Labs on admission show WBC 19.7, hemoglobin 14.2, hematocrit 44.2, platelet 312, PT 10.5, PTT 19.8, INR 0.9, sodium 127, potassium 4.6, chloride 91, carbon dioxide 26, BUN 38, creatinine 1.11, glucose 195, lactic acid 4.7, BNP 361. Serology tested positive for COVID. 04/11. Patient seen and examined at bedside. No acute events overnight. No significant complaints today. Echocardiogram performed today: Normal LV function (EF 55-60%), mild right ventricular dilation. Labs: WBCs 9.97, hemoglobin 13.2, hematocrit 39.9, platelets 289, sodium 132, potassium 4.7, chloride 92, CO2 31.5, BUN 26, creatinine 1, glucose 158. 12/17. Pt doing well today, feels back to his baseline. Will be discharged home with prednisone taper. He did not qualify for oxygen concentrator and reports that he will purchase his own from [employer] on discharge. Instructed to f/u with PCP and pulmonology. Gen: In NAD, non-toxic HEENT: normocephalic, atraumatic, hearing acuity is intant, mucous membranes jose st CVS: perfusing all extremities well, no pitting edema, Respiratory: symmetric chest expansion, no accessory muscle use, GI: soft, NTTP, ND, : no suprapubic tenderness, no CVA tenderness MSK/Derm: no rashes, cyanosis Neuro: CN II-XII intact, no motor weakness, Psych: cooperative, euthymic mood, judgment and insight is intact Patient Condition at Discharge: Good Plan - Discharge Summary Discharge Rx Participant: Yes New Discharge Prescriptions: Continue Aspirin EC [Ecotrin Low Dose] 81 mg PO DAILY Budesonide/Formoterol Fumarate [Symbicort 160-4.5 Mcg Inhaler] 2 puff INHALATION RT-BID Ipratropium/Albuterol Sulfate [Combivent Respimat Inhaler] 1 puff INHALATION RT-QID lisinopriL [Zestril] 2.5 mg PO HS Metoprolol Tartrate [Lopressor] 25 mg PO BID Spironolactone 25 mg PO DAILY Clopidogrel Bisulfate [Plavix] 75 mg PO DAILY Tiotropium 18 Mcg/Puff [Spiriva] 2 puff INHALATION RT-DAILY Simvastatin [Zocor] 40 mg PO HS Albuterol Nebulized [Ventolin Nebulized] 2.5 mg INHALATION RT-QID Loratadine [Claritin] 10 mg PO DAILY Albuterol Inhaler [Ventolin Hfa Inhaler] 2 puff INHALATION RT-Q6H PRN PRN Reason: Shortness Of Breath Cholecalciferol [Vitamin D3 (25 Mcg = 1000 Iu)] 25 mcg PO BID Pantoprazole [Protonix] 40 mg PO W/BRKFST Gabapentin [Neurontin] 100 mg PO BID metFORMIN HCL 500 mg PO BID-W/MEALS Ferrous Sulfate [Iron (65 MG Elemental)] 325 mg PO W/LUNCH Folic Acid 1 mg PO DAILY Vitamin B-12 50mcg 50 mcg PO DAILY Changed Furosemide [Lasix] 20 mg PO DAILY #0 predniSONE [Deltasone] See Rx Instructions .ROUTE .COMPLEX #15 tab Discharge Medication List Aspirin EC [Ecotrin Low Dose] 81 mg PO DAILY 06/22/18 [History] Budesonide/Formoterol Fumarate [Symbicort 160-4.5 Mcg Inhaler] 2 puff INHALATION RT-BID 06/22/18 [History] Ipratropium/Albuterol Sulfate [Combivent Respimat Inhaler] 1 puff INHALATION RT- QID 06/22/18 [History] Metoprolol Tartrate [Lopressor] 25 mg PO BID 06/22/18 [History] Spironolactone 25 mg PO DAILY 06/22/18 [History] lisinopriL [Zestril] 2.5 mg PO HS 06/22/18 [History] Clopidogrel Bisulfate [Plavix] 75 mg PO DAILY 07/01/18 [History] Albuterol Inhaler [Ventolin Hfa Inhaler] 2 puff INHALATION RT-Q6H PRN 12/07/19 [History] Albuterol Nebulized [Ventolin Nebulized] 2.5 mg INHALATION RT-QID 12/07/19 [History] Loratadine [Claritin] 10 mg PO DAILY 12/07/19 [History] Simvastatin [Zocor] 40 mg PO HS 12/07/19 [History] Tiotropium 18 Mcg/Puff [Spiriva] 2 puff INHALATION RT-DAILY 12/07/19 [History] Cholecalciferol [Vitamin D3 (25 Mcg = 1000 Iu)] 25 mcg PO BID 03/17/24 [History] Ferrous Sulfate [Iron (65 MG Elemental)] 325 mg PO W/LUNCH 04/06/24 [History] Folic Acid 1 mg PO DAILY 04/06/24 [History] Gabapentin [Neurontin] 100 mg PO BID 04/06/24 [History] Pantoprazole [Protonix] 40 mg PO W/BRKFST 04/06/24 [History] Vitamin B-12 50mcg 50 mcg PO DAILY 04/06/24 [History] metFORMIN HCL 500 mg PO BID-W/MEALS 04/06/24 [History] Furosemide [Lasix] 20 mg PO DAILY #0 04/12/24 [Rx] predniSONE [Deltasone] See Rx Instructions .ROUTE .COMPLEX #15 tab 04/12/24 [Rx] Follow up Appointment(s)/Referral(s): Mindy Vargas MD [STAFF PHYSICIAN] - 05/10/24 10:00 am [facility]inic [Primary Care Provider] - 1-2 days (Please do a depression screen on hospital follow up Office closed at time of discharge) Activity/Diet/Wound Care/Special Instructions: [facility] call [facility] to follow up. Discharge/Stand Alone Forms: Outpatient Counseling Discharge Disposition: HOME WITH HOME HEALTH SERVICES
--- NOTE | 2024-04-12 19:43 | P.PN ---
Subjective Progress Note Date: 04/12/24 Patient is a 78-year-old male with past medical history significant for COPD, chronic oxygen dependence, hypertension, hyperlipidemia, PAD, heart failure, among other things. Patient follows in the pulmonary office with Dr. Vargas, for management of his very severe COPD. He has an FEV1 from 29% of predicted. Normally, maintained on oxygen 3 L/min nasal cannula at night. He utilizes a combination of Breyna, Spiriva, and albuterol nebs [id number]. Note, patient was recently admitted for an exacerbation of COPD. He was eager to be discharged on Thursday. Sent home on prednisone taper, however, unable to get these medications from pharmacy. Also, his oxygen concentrator is reportedly no t working at home. He returns less than 24 hours later, with worsening shortness of breath. Associated nonproductive cough. Denies any fevers, chills, sputum production, hemoptysis, chest pain. Denies any nausea, vomiting, diarrhea. Oral intake has been poor. He has been weak, and did have a fall at home. Denies hitting his head or losing consciousness. Denies anticoagulant use. COVID PCR was positive on this admission, previously was negative. States he was previously vaccinated for COVID, but not up to date with current booster injection. No past known covid infections. Chest x-ray did not show any focal infiltrates or evidence of pneumonia. CBC: WBC count 19.7, hemoglobin 14.6, hematocrit 44.2, platelets 312. CMP: Sodium 127, potassium 4.6, chloride 91, serum bicarb 26, BUN 38, creatinine 1.11, glucose 195. Lactic was 4.7 and down to 1.6. LFTs unremarkable. NT proBNP 361. Is currently being evaluated in the emergency department. Not in any respiratory distress. Speaks in full sentences, without conversational dyspnea. Current vitals: SpO2 98% on 3 L/min nasal cannula, nontachypneic, heart rate 60 bpm, blood pressure 119/67 mmHg. On 04/12/2024, the patient has no specific complaints. Less short of breath compared to yesterday. Less bronchospastic and wheezy and he feels that he is back to his baseline. In fact, his oxygenation is also improved and the patient is currently on room air oxygen with a pulse ox of 96%. As such, arrangements will be made to discharge this patient home today and will be completing a prednisone burst taper at the time of discharge. Labs from today shows a white cell count of 15 with a heme of 12.4 and a platelet count of 271. BUN 24 with a creatinine of 0.9 and a sodium levels at 132. Objective - Vital Signs Vital signs: Vital Signs Temp 97.9 F 04/12/24 07:10 Pulse 95 04/12/24 07:10 Resp 18 04/12/24 07:10 BP 147/80 04/12/24 07:10 Pulse Ox 96 04/12/24 07:10 FiO2 Intake & Output 04/11/24 04/12/24 04/12/24 18:59 06:59 18:59 Intake Total 180 Balance 180 Weight 115.4 kg 110.5 kg Intake: Oral 180 Other: Voiding Method Toilet Toilet # Voids 2 2 - Exam GENERAL EXAM: Alert, 78-year-old male, comfortable in no apparent distress. Patient is currently on room air oxygen HEAD: Normocephalic and atraumatic EYES: Normal reaction of pupils, equal size. NOSE: Clear with pink turbinates. THROAT: No erythema or exudates. NECK: No masses, no JVD. CHEST: No chest wall deformity. LUNGS: Equal air entry with faint expiratory wheezes heard bilaterally and throughout. No conversational dyspnea or accessory muscle use.. CVS: S1 and S2 normal with no audible murmur, regular rhythm. No extra heart sounds ABDOMEN: No hepatosplenomegaly, active bowel sounds, no guarding or rigidity. SPINE: No scoliosis or deformity SKIN: No rashes CENTRAL NERVOUS SYSTEM: No focal deficits, tone is normal in all 4 extremities. EXTREMITIES: There is mild 1+ bilateral lower extremity edema. No clubbing or cyanosis. Peripheral pulses are intact. - Labs CBC & Chem 7: 04/12/24 02:51 04/12/24 02:51 Labs: Abnormal Lab Results - Last 24 Hours (Table) 04/11/24 04/11/24 04/11/24 Range/Units 16:47 19:16 22:21 WBC (4.50-10.00) X 10*3/uL Hgb (13.0-17.0) g/dL Hct (39.6-50.0) % Immature Gran # (0.00-0.04) X 10*3/uL Neutrophils # (1.80-7.70) X 10*3/uL Lymphocytes # (0.90-5.00) X 10*3/uL Eosinophils # (0.04-0.35) X 10*3/uL Sodium (135-145) mmol/L BUN/Creatinine Ratio (12.00-20.00) Ratio Glucose (70-110) mg/dL POC Glucose (mg/dL) 167 H 187 H 159 H (70-110) mg/dL Hemoglobin A1c (<=6.0) % Calcium (8.7-10.3) mg/dL 04/12/24 04/12/24 04/12/24 Range/Units 02:51 02:51 02:51 WBC 15.07 H (4.50-10.00) X 10*3/uL Hgb 12.4 L (13.0-17.0) g/dL Hct 37.0 L (39.6-50.0) % Immature Gran # 0.43 H (0.00-0.04) X 10*3/uL Neutrophils # 13.64 H (1.80-7.70) X 10*3/uL Lymphocytes # 0.65 L (0.90-5.00) X 10*3/uL Eosinophils # 0 L (0.04-0.35) X 10*3/uL Sodium 132 L (135-145) mmol/L BUN/Creatinine Ratio 27.44 H (12.00-20.00) Ratio Glucose 171 H (70-110) mg/dL POC Glucose (mg/dL) (70-110) mg/dL Hemoglobin A1c 6.7 H (<=6.0) % Calcium 8.3 L (8.7-10.3) mg/dL 04/12/24 Range/Units 06:27 WBC (4.50-10.00) X 10*3/uL Hgb (13.0-17.0) g/dL Hct (39.6-50.0) % Immature Gran # (0.00-0.04) X 10*3/uL Neutrophils # (1.80-7.70) X 10*3/uL Lymphocytes # (0.90-5.00) X 10*3/uL Eosinophils # (0.04-0.35) X 10*3/uL Sodium (135-145) mmol/L BUN/Creatinine Ratio (12.00-20.00) Ratio Glucose (70-110) mg/dL POC Glucose (mg/dL) 148 H (70-110) mg/dL Hemoglobin A1c (<=6.0) % Calcium (8.7-10.3) mg/dL Assessment and Plan Assessment: Acute COPD exacerbation; chest x-ray does not show any acute cardiopulmonary process, including focal infiltrates or evidence of pneumonia. COVID-positive by PCR. Clinically improved Acute on top of chronic hypoxemic respiratory failure, secondary to above, improved and the patient is currently on room air oxygen Acute leukocytosis, possibly reactive to steroids that he received during his recent hospitalization Acute kidney injury, improved Lactic acidemia, improved History of heart failure, with unknown ejection fraction History of hyperlipidemia History of hypertension History of CAD History of peripheral arterial disease Very severe chronic obstructive pulmonary disease, with an FEV1 29% of predicted, normally maintained on a combination of Breyna, Spiriva, albuterol nebs [id number] Chronic hypoxemic respiratory failure, secondary to above, normally oxygen dependent on 3 L/min nasal cannula mostly at bedtime Former tobacco dependence, quit smoking over 15 years ago Obesity, with a BMI of 40.5 kg/m Plan: Patient is currently on room air oxygen COVID-positive by PCR; previously negative on 04/07/2024 Continue bronchodilators, Symbicort inhaler and Spiriva Prednisone burst taper at time of discharge Resume home medications To be followed up on outpatient basis
== END 2024-04-12 14:02 | disposition home health service (06) ==
LOC: EC 15:09 → 4SSUR 19:04
PROVIDERS: ADMIT Internal Medicine; ATTEND Internal Medicine
DX: J44.1 Chronic obstructive pulmonary disease with (acute) exacerbation (principal); J96.11 Chronic respiratory failure with hypoxia; U07.1 COVID-19; E87.20 Acidosis, unspecified; N17.9 Acute kidney failure, unspecified; D72.829 Elevated white blood cell count, unspecified; E87.1 Hypo-osmolality and hyponatremia; R79.89 Other specified abnormal findings of blood chemistry; I25.10 Atherosclerotic heart disease of native coronary artery without angina pectoris; K21.9 Gastro-esophageal reflux disease without esophagitis; E78.5 Hyperlipidemia, unspecified; I11.0 Hypertensive heart disease with heart failure; I50.9 Heart failure, unspecified; F41.9 Anxiety disorder, unspecified; F32.A Depression, unspecified; E11.51 Type 2 diabetes mellitus with diabetic peripheral angiopathy without gangrene; E11.40 Type 2 diabetes mellitus with diabetic neuropathy, unspecified; I25.2 Old myocardial infarction; E66.9 Obesity, unspecified; Z68.41 Body mass index [BMI] 40.0-44.9, adult; Z86.711 Personal history of pulmonary embolism; Z87.891 Personal history of nicotine dependence; Z95.5 Presence of coronary angioplasty implant and graft; Z99.81 Dependence on supplemental oxygen; Z79.82 Long term (current) use of aspirin; Z79.51 Long term (current) use of inhaled steroids; Z79.899 Other long term (current) drug therapy; Z79.02 Long term (current) use of antithrombotics/antiplatelets; Z79.84 Long term (current) use of oral hypoglycemic drugs; Z88.1 Allergy status to other antibiotic agents
CPT/HCPCS: 96376 ×2; 96372 ×2; 96374 ×2; 99285; 36415; 94640 ×6; 93005; 83880; 80053; 80048 ×2; 83605; 83735 ×2; 85025 ×3; 85610; 85730; 83036; 87636; 71046; G0378 ×3; C8929; J1650 ×2; Q9957; J2919 ×3; 93306

== ENCOUNTER 2024-04-16 08:23 | Inpatient (IN) | payer OTHER, MEDICARE ==
[2024-04-16] MEDS: ALBUTEROL NEBULIZED 2.5 MG/3 ML INHALATION STA (08:50)
[2024-04-16] MEDS: IPRATROPIUM 0.5 MG/2.5 ML NEBU INHALATION STA (08:50)
[2024-04-16 08:54] LABS: Basophils # (A) 0.1 k/uL (0-0.2); Basophils % (A) 0 %; Eosinophils # (A) 0.2 k/uL (0-0.7); Eosinophils % (A) 2 %; HCT 41.9 % (39.0-53.0); HGB 13.5 gm/dL (13.0-17.5); Lymphocytes # (A) 1.7 k/uL (1.0-4.8); Lymphocytes % (A) 12 %; MCH 27.8 pg (25.0-35.0); MCHC 32.2 g/dL (31.0-37.0); MCV 86.2 fL (80.0-100.0); Mean Platelet Volume 7.3; Monocytes % (A) 7 %; Neutrophils # (A) 11.2 k/uL (1.3-7.7); Neutrophils % (A) 78 %; Platelet Count 277 k/uL (150-450); RBC 4.87 m/uL (4.30-5.90); RDW 14.4 % (11.5-15.5); WBC 14.3 k/uL (3.8-10.6)
[2024-04-16] MEDS: methylPREDNISolone SOD SUCCI 125 MG/2 ML VIAL IV STA (08:54)
[2024-04-16] MEDS: cefTRIAXone IN SWFI 1,000 MG/10 ML SYRINGE IVP STA (08:54)
--- NOTE | 2024-04-16 09:02 | ED ---
General Adult HPI - General Chief complaint: Shortness of Breath Stated complaint: DAVID Time Seen by Provider: 04/16/24 08:30 Source: patient, RN notes reviewed, old records reviewed Mode of arrival: wheelchair Limitations: physical limitation - History of Present Illness Initial comments: This is a 78-year-old male who states she was recently admitted to the hospital and discharged home. Patient feels he was discharged home too early. Patient states the last few days he has been getting progressively worse and his difficulty breathing is getting worse. Patient denies any fever chills. Patient denies any significant cough or sputum production. Patient Nuys any chest pain. Patient has abdominal pain patient Nuys any back pain. Patient denies any swelling to his legs or any increased edema. - Related Data Home Medications Medication Instructions Recorded Confirmed Aspirin EC [Ecotrin Low Dose] 81 mg PO DAILY 06/22/18 04/16/24 Budesonide/Formoterol Fumarate 2 puff INHALATION RT-BID 06/22/18 04/16/24 [Symbicort 160-4.5 Mcg Inhaler] Ipratropium/Albuterol Sulfate 1 puff INHALATION RT-QID 06/22/18 04/16/24 [Combivent Respimat Inhaler] Metoprolol Tartrate [Lopressor] 25 mg PO BID 06/22/18 04/16/24 Spironolactone 25 mg PO DAILY 06/22/18 04/16/24 lisinopriL [Zestril] 2.5 mg PO HS 06/22/18 04/16/24 Clopidogrel Bisulfate [Plavix] 75 mg PO DAILY 07/01/18 04/16/24 Albuterol Inhaler [Ventolin Hfa 2 puff INHALATION RT-Q6H PRN 12/07/19 04/16/24 Inhaler] Albuterol Nebulized [Ventolin 2.5 mg INHALATION RT-QID 12/07/19 04/16/24 Nebulized] Loratadine [Claritin] 10 mg PO DAILY 12/07/19 04/16/24 Simvastatin [Zocor] 40 mg PO HS 12/07/19 04/16/24 Tiotropium 18 Mcg/Puff [Spiriva] 2 puff INHALATION RT-DAILY 12/07/19 04/16/24 Cholecalciferol [Vitamin D3 (25 25 mcg PO BID 03/17/24 04/16/24 Mcg = 1000 Iu)] Ferrous Sulfate [Iron (65 MG 325 mg PO W/LUNCH 04/06/24 04/16/24 Elemental)] Folic Acid 1 mg PO DAILY 04/06/24 04/16/24 Gabapentin [Neurontin] 100 mg PO BID 04/06/24 04/16/24 Pantoprazole [Protonix] 40 mg PO W/BRKFST 04/06/24 04/16/24 Vitamin B-12 50mcg 50 mcg PO DAILY 04/06/24 04/16/24 metFORMIN HCL 500 mg PO BID-W/MEALS 04/06/24 04/16/24 Furosemide [Lasix] 20 mg PO DIRECTED 04/16/24 04/16/24 predniSONE [Deltasone] See Taper PO DIRECTED 04/16/24 04/16/24 Allergies Allergy/AdvReac Type Severity Reaction Status Date / Time fluticasone AdvReac Nausea Verified 04/16/24 08:24 [From Wixela Inhub] levofloxacin [From Levaquin] AdvReac TENDON PAIN Verified 04/16/24 08:24 salmeterol AdvReac Nausea Verified 04/16/24 08:24 [From Wixela Inhub] Review of Systems ROS Statement: Those systems with pertinent positive or pertinent negative responses have been documented in the HPI. ROS Other: All systems not noted in ROS Statement are negative. Past Medical History Past Medical History: Coronary Artery Disease (CAD), COPD, GERD/Reflux, Hyperlipidemia, Hypertension, Myocardial Infarction ([place]), Pulmonary Embolus (PE), Renal Disease Additional Past Medical History / Comment(s): Home oxygen prn and pt states he usually wears at night at 2.5 liters, bilateral PEs in 2003, ETOH abuse-pt states he has never had withdrawal symptoms, chronic low back pain/sciatica/spurs/disc disease much improved after back injections, past urinary retention, diverticulitis/benign colon polyps removed, nephrolithiasis- passed stones on his own, shingelles 16 years ago-R shoulder. Last Myocardial Infarction Date:: 2010 History of Any Multi-Drug Resistant Organisms: None Reported Past Surgical History: Heart Catheterization With Stent Additional Past Surgical History / Comment(s): Back injections for pain, piece of metal removed from rt eye, EGD, colonoscopy Past Anesthesia/Blood Transfusion Reactions: No Reported Reaction Additional Past Anesthesia/Blood Transfusion Reaction / Comment(s): claustrophobia Date of Last Stent Placement:: 2010 Past Psychological History: Anxiety, Depression, PTSD Smoking Status: Former smoker Past Alcohol Use History: None Reported Past Drug Use History: None Reported - Past Family History Mother Family Medical History: Cancer Additional Family Medical History / Comment(s): from breast cancer at age 53 Father Family Medical History: Coronary Artery Disease (CAD), Myocardial Infarction ([place]) Additional Family Medical History / Comment(s): 4 mi's/CABG. at at age 72 General Exam - General Exam Comments Initial Comments: GENERAL: Patient is well-developed and well-nourished. Patient is nontoxic and well- hydrated and is in moderate distress. ENT: Neck is soft and supple. No significant lymphadenopathy is noted. Oropharynx is clear. Moist mucous membranes. Neck has full range of motion without eliciting any pain. EYES: The sclera were anicteric and conjunctiva were pink and moist. Extraocular movements were intact and pupils were equal round and reactive to light. Eyelids were unremarkable. PULMONARY: Diffuse wheezing CARDIOVASCULAR: Patient is tachycardic about 110 beats a minute ABDOMEN: Soft and nontender with normal bowel sounds. SKIN: Skin is clear with no lesions or rashes and otherwise unremarkable. NEUROLOGIC: Patient is alert and oriented x3. Cranial nerves II through XII are grossly intact. Motor and sensory are also intact. Normal speech, volume and content. Symmetrical smile. MUSCULOSKELETAL: Normal extremities with adequate strength and full range of motion. No lower extremity swelling or edema. No calf tenderness. LYMPHATICS: No significant lymphadenopathy is noted PSYCHIATRIC: Normal psychiatric evaluation. Limitations: physical limitation Course Vital Signs 04/16/24 04/16/24 04/16/24 08:24 08:43 08:51 Temperature 97.9 F Pulse Rate 103 H 116 H 117 H Respiratory 28 H 24 24 Rate Blood Pressure 152/94 88/60 O2 Sat by Pulse 86 L 90 L Oximetry 04/16/24 04/16/24 04/16/24 08:58 09:13 09:56 Temperature Pulse Rate 111 H 112 H Respiratory 24 24 20 Rate Blood Pressure 100/63 O2 Sat by Pulse 99 Oximetry 04/16/24 04/16/24 04/16/24 09:57 11:08 11:20 Temperature Pulse Rate 112 H 105 H 103 H Respiratory 20 20 20 Rate Blood Pressure 100/63 O2 Sat by Pulse 99 Oximetry Medical Decision Making - Medical Decision Making EKG is interpreted by myself EKG shows a sinus tachycardia at 107 bpm [place] 158 QRS is 91 QT interval is 313 QTc is 376. EKG shows slight ST elevation in aVR and depression in 2 3 and aVF Was pt. sent in by a medical professional or institution (, [facility]VIN, PIG FURNACE OPERATOR, urgent care, hospital, or usp...) When possible be specific @ -No Did you speak to anyone other than the patient for history (EMS, parent, family, police, friend...)? What history was obtained from this source @ -No Did you review nursing and triage notes (agree or disagree)? Why? @ -I reviewed and agree with nursing and triage notes Were old charts reviewed (outside hosp., previous admission, EMS record, old EKG, old radiological studies, urgent care reports/EKG's, usp records)? Report findings @ -No old charts were reviewed Differential Diagnosis? @ -Differential Dyspnea: Coronary syndrome, arrhythmia, tamponade, asthma, COPD, pulmonary embolism, pneumonia, pneumothorax, pulmonary effusion, anaphylaxis, diabetic ketoacidosis, flailed chest, pulmonary contusion, diaphragmatic rupture, anemia, neuromuscular, this is not meant to be an all-inclusive list. EKG interpreted by me (3pts min.). @ -As above X-rays interpreted by me (1pt min.). @ -Chest x-ray shows no acute abnormality. CT interpreted by me (1pt min.). @ -None done U/S interpreted by me (1pt. min.). @ -None done What testing was considered but not performed or refused? (CT, X-rays, U/S, labs)? Why? @ -None What meds were considered but not given or refused? Why? @ -None Did you discuss the management of the patient with other professionals (professionals i.e. , ELVIN, PIG FURNACE OPERATOR, lab, RT, psych nurse, adoption social worker, process engineering intern, teacher, health officer, counseling case manager)? Give summary @ -I spoke with Dr. Hyatt of [facility] and discussed the case with him Was smoking cessation discussed for >3mins.? @ -No Was critical care preformed (if so, how long)? @ -No Were there social determinants of health that impacted care today? How? (Homelessness, low income, unemployed, alcoholism, drug addiction, transportation, low edu. Level, literacy, decrease access to med. care, long term, r ehab)? @ -No Was there de-escalation of care discussed even if they declined (Discuss DNR or withdrawal of care, Hospice)? DNR status @ -No What co-morbidities impacted this encounter? (DM, HTN, Smoking, COPD, CAD, Cancer, CVA, ARF, Chemo, Hep., AIDS, mental health diagnosis, sleep apnea, morbid obesity)? @ -None Was patient admitted / discharged? Hospital course, mention meds given and route, prescriptions, significant lab abnormalities, going to OR and other pertinent info. @ -Patient came in in significant respiratory distress patient was given a couple breathing treatments and steroids as well as antibiotics. Patient was feeling much better oxygenating on 2 L between 98 to 100% when I was in the room. Patient stated he felt considerably better. I did speak with Dr. Hyatt and he agreed to admit the patient. Undiagnosed new problem with uncertain prognosis? @ -No Drug Therapy requiring intensive monitoring for toxicity (Heparin, Nitro, Insulin, Cardizem)? @ -No Were any procedures done? @ -No Diagnosis/symptom? @ -COPD exacerbation Acute, or Chronic, or Acute on Chronic? @ -Acute Uncomplicated (without systemic symptoms) or Complicated (systemic symptoms)? @ -Default Side effects of treatment? @ -No Exacerbation, Progression, or Severe Exacerbation? @ -Severe exacerbation Poses a threat to life or bodily function? How? (Chest pain, [place], [place], pneumonia, PE, COPD, DKA, ARF, appy, cholecystitis, CVA, Diverticulitis, Homicidal, Suicidal, threat to staff... and all critical care pts) @ -Yes this could lead to hypoxia and endorgan dysfunction Diagnosis/symptom? @ -COVID Acute, or Chronic, or Acute on Chronic? @ -Acute Uncomplicated (without systemic symptoms) or Complicated (systemic symptoms)? @ -Complicated Side effects of treatment? @ -None Exacerbation, Progression, or Severe Exacerbation] @ -No Poses a threat to life or bodily function? @ -No - Lab Data Result diagrams: 04/16/24 08:47 04/16/24 08:47 Lab Results 04/16/24 04/16/2424 Range/Units 08:47 08:47 08:47 WBC 14.3 H (3.8-10.6) k/uL RBC 4.87 (4.30-5.90) m/uL Hgb 13.5 (13.0-17.5) gm/dL Hct 41.9 (39.0-53.0) % MCV 86.2 (80.0-100.0) fL MCH 27.8 (25.0-35.0) pg MCHC 32.2 (31.0-37.0) g/dL RDW 14.4 (11.5-15.5) % Plt Count 277 (150-450) k/uL MPV 7.3 Neutrophils % 78 % Lymphocytes % 12 % Monocytes % 7 % Eosinophils % 2 % Basophils % 0 % Neutrophils # 11.2 H (1.3-7.7) k/uL Lymphocytes # 1.7 (1.0-4.8) k/uL Monocytes # 1.0 (0-1.0) k/uL Eosinophils # 0.2 (0-0.7) k/uL Basophils # 0.1 (0-0.2) k/uL PT 9.7 L (10.0-12.5) sec INR 0.9 (<1.2) APTT 19.8 L (22.0-30.0) sec Sodium 135 L (137-145) mmol/L Potassium 4.6 (3.5-5.1) mmol/L Chloride 97 L (98-107) mmol/L Carbon Dioxide 36 H (22-30) mmol/L Anion Gap 2 mmol/L BUN 11 (9-20) mg/dL Creatinine 0.87 (0.66-1.25) mg/dL Est GFR (CKD-EPI)AfAm >90 (>60 ml/min/1.73 sqM) Est GFR (CKD-EPI)NonAf 84 (>60 ml/min/1.73 sqM) Glucose 116 H (74-99) mg/dL Lactic Ac Sepsis Rflx Plasma Lactic Acid Sandor (0.7-2.0) mmol/L Calcium 8.9 (8.4-10.2) mg/dL Magnesium 1.8 (1.6-2.3) mg/dL Total Bilirubin 0.6 (0.2-1.3) mg/dL AST 19 (17-59) U/L ALT 20 (4-49) U/L Alkaline Phosphatase 56 (38-126) U/L Troponin I (0.000-0.034) ng/mL Total Protein 5.9 L (6.3-8.2) g/dL Albumin 3.6 (3.5-5.0) g/dL 04/16/24 04/16/24 04/16/24 Range/Units 08:47 08:47 09:22 WBC (3.8-10.6) k/uL RBC (4.30-5.90) m/uL Hgb (13.0-17.5) gm/dL Hct (39.0-53.0) % MCV (80.0-100.0) fL MCH (25.0-35.0) pg MCHC (31.0-37.0) g/dL RDW (11.5-15.5) % Plt Count (150-450) k/uL MPV Neutrophils % % Lymphocytes % % Monocytes % % Eosinophils % % Basophils % % Neutrophils # (1.3-7.7) k/uL Lymphocytes # (1.0-4.8) k/uL Monocytes # (0-1.0) k/uL Eosinophils # (0-0.7) k/uL Basophils # (0-0.2) k/uL PT (10.0-12.5) sec INR (<1.2) APTT (22.0-30.0) sec Sodium (137-145) mmol/L Potassium (3.5-5.1) mmol/L Chloride (98-107) mmol/L Carbon Dioxide (22-30) mmol/L Anion Gap mmol/L BUN (9-20) mg/dL Creatinine (0.66-1.25) mg/dL Est GFR (CKD-EPI)AfAm (>60 ml/min/1.73 sqM) Est GFR (CKD-EPI)NonAf (>60 ml/min/1.73 sqM) Glucose (74-99) mg/dL Lactic Ac Sepsis Rflx Y Plasma Lactic Acid Sandor 3.2 H* (0.7-2.0) mmol/L Calcium (8.4-10.2) mg/dL Magnesium (1.6-2.3) mg/dL Total Bilirubin (0.2-1.3) mg/dL AST (17-59) U/L ALT (4-49) U/L Alkaline Phosphatase (38-126) U/L Troponin I 0.024 (0.000-0.034) ng/mL Total Protein (6.3-8.2) g/dL Albumin (3.5-5.0) g/dL Disposition Clinical Impression: COPD with acute exacerbation, COVID Disposition: ADMITTED IP TO THIS HOSP Time of Disposition: 09:43
[2024-04-16 09:13] LABS: ALT 20 U/L (4-49); AST 19 U/L (17-59); African American GFR (CKD) >90 (>60 ml/min/1.73 sqM); Albumin 3.6 g/dL (3.5-5.0); Alkaline Phosphatase 56 U/L (38-126); Anion Gap 2 mmol/L; Blood Urea Nitrogen 11 mg/dL (9-20); Calcium 8.9 mg/dL (8.4-10.2); Carbon Dioxide 36 mmol/L (22-30); Chloride 97 mmol/L (98-107); Glucose 116 mg/dL (74-99); Magnesium 1.8 mg/dL (1.6-2.3); Non-African American GFR(CKD) 84 (>60 ml/min/1.73 sqM); Potassium 4.6 mmol/L (3.5-5.1); Sodium 135 mmol/L (137-145); Total Bilirubin 0.6 mg/dL (0.2-1.3); Total Protein 5.9 g/dL (6.3-8.2)
--- NOTE | 2024-04-16 09:33 | XR ---
EXAMINATION TYPE: XR chest 2V DATE OF EXAM: 04/16/2024 9:18 AM COMPARISON: Chest radiographs from 04/10/2024 CLINICAL INDICATION: Male, 78 years old with history of difficulty breathing; [facility] TECHNIQUE: XR chest 2V Frontal and lateral views of the chest. FINDINGS: Lungs/Pleura: There is flattening of the diaphragm with increased lucency of the lungs. No evidence o f pneumothorax, pleural effusion or focal consolidation. Pulmonary vascularity: Unremarkable. Heart/mediastinum: Cardiomediastinal silhouette is unremarkable. Musculoskeletal: No acute osseous pathology. Other findings: None Lines/Tubes: IMPRESSION: 1. No acute cardiopulmonary disease process. 2. COPD changes. [facility], , 04/16/2024 9:30 AM
[2024-04-16 09:34] LABS: INR 0.9 (<1.2); Prothrombin Time 9.7 sec (10.0-12.5)
[2024-04-16 09:37] LABS: Partial Thromboplastin Time 19.8 sec (22.0-30.0)
[2024-04-16] MEDS ORDERED: NALOXONE 0.4 MG/ML 1 ML VIAL IVP PRN (09:43)
[2024-04-16] MEDS ORDERED: IPRATROPIUM-ALBUTEROL 3 ML NEB INHALATION PRN (09:43)
[2024-04-16] MEDS: IPRATROPIUM-ALBUTEROL 3 ML NEB INHALATION SCH (11:08)
[2024-04-16] MEDS ORDERED: ALBUTEROL HFA INHALER INHALATION PRN (11:17)
[2024-04-16] MEDS: ALBUTEROL HFA INHALER INHALATION SCH (11:25)
[2024-04-16] MEDS: TIOTROPIUM 2.5 MCG INHALER INHALATION SCH (11:25)
[2024-04-16] MEDS: methylPREDNISolone SOD SUCCI 125 MG/2 ML VIAL IV SCH (11:43)
[2024-04-16] MEDS ORDERED: DEXTROSE 50% SYRINGE 50 ML IVP PRN ×2 (12:05)
[2024-04-16] MEDS: PANTOPRAZOLE 40 MG TABLET PO SCH (12:18)
[2024-04-16] MEDS: SPIRONOLACTONE 25 MG TAB PO SCH (12:18)
[2024-04-16] MEDS: CLOPIDOGREL 75 MG TAB PO SCH (12:18)
[2024-04-16] MEDS: ASPIRIN 81 MG PO SCH (12:20)
[2024-04-16 12:39] LABS: Glucose,Whole Blood 194 mg/dL (70-110)
[2024-04-16] MEDS: INSULIN ASPART (NovoLOG) 100 UNIT/ML VIAL SQ SCH (13:54)
--- NOTE | 2024-04-16 14:16 | P.HPIM ---
History of Present Illness H&P Date: 04/16/24 Patient is a 78-year-old male with a past medical history significant for COPD on 3 L home oxygen, oax-qzmjikv-vzsffqzzf diabetes mellitus, congestive heart failure (55-60%), hyperlipidemia, hypertension, history of CAD with heart catheterization and stent placement, history of bilateral PEs in 2003, history of alcohol abuse, chronic low back pain, history of urinary retention and nephrolithiasis, and GERD presented to the emergency department today for difficulty breathing. He was discharged on 04/12/2024 for similar complaints. He states that he was doing okay since the last discharge but last night he began having dyspnea and was gasping for air. He notes a productive cough of whitish-yellow sputum for the last 1 to 2 days. He reports trying to increase his oxygen at home but states that he does not think his oxygen at home works. He notes decreased oral intake over the last few days. He notes decreased sleep as he is scared he will wake up gasping for air so he has not been sleeping. He currently reports chills and dizziness. He notes several episodes of diarrhea last night, he was unable to characterize the diarrhea. He denies chest pain, abdominal pain, orthopnea. Initial EKG independently interpreted: Sinus tachycardia, inferolateral ST depressions. Initial chest x-ray: COPD changes. Initial labs: WBC 14.3, hemoglobin 13.5, platelets 277, PT 9.7, INR 0.9, APTT 19.8, sodium 135, potassium 4.6, chloride 97, CO2 36, BUN 11, creatinine 0.87, glucose 116, lactate 3.2, troponin X1 0.024, COVID-19 positive. Initial vitals: T 97.9 F, SD 103 bpm, RR 28, BP 152/94, O2 86% 3 L nasal cannula. ED documentation reviewed. Review of systems: Pertinent positives and negatives as discussed in HPI, a complete review of systems was performed and all other systems are negative. Social history: Tobacco: Former smoker, quit more than 15 years ago Alcohol: None reported Recreational drugs: None reported Travel: Non reported Sick contacts: None reported Physical examination: Vital signs reviewed General: Acute respiratory distress Derm: Warm, dry, intact Head: Atraumatic, normocephalic, symmetric Eyes: EOMI, anicteric sclera Mouth: No lip lesion, mucus membranes moist Cardiovascular: S1-S2 regular, no murmur Lungs: Bilateral expiratory wheezes, accessory muscle use Abdominal: Soft, non-tender to palpation Extremities: No cyanosis, clubbing, 2+ pitting edema bilaterally to the knee Neuro: Alert, oriented x 3, gross neurological examination did not reveal any focal deficits. Cranial nerves II to XII grossly intact. Psych: Appropriate affect and mood Assessment and Plan: Patient is a 78-year-old male with a past medical history significant for COPD on 3 L home oxygen, yjt-nshrkyp-lglkxrnjp diabetes mellitus, congestive heart failure (55-60%), hyperlipidemia, hypertension, history of CAD with heart catheterization and stent placement, history of bilateral PEs in 2003, history of alcohol abuse, chronic low back pain, history of urinary retention and nephrolithiasis, and GERD admitted for dyspnea. Active #. Acute on chronic hypoxic respiratory failure, likely COPD exacerbation #. Acute COPD exacerbation #. COVID-19 positive IV Solu-Medrol 60 mg every 6 hours Spiriva daily Symbicort twice daily Ventolin HFA 4 times daily and as needed Oxygen supplementation as needed to maintain O2 saturation >88% #. Leukocytosis, possibly reactive to steroids Monitor CBC #. Sepsis, secondary to COVID pneumonia, improving Monitor CBC Discontinue Augmentin-no clinical signs/symptoms of bacterial infection Resolved #. Lactic acidosis Chronic #. Mvc-fimrrms-guumhcald diabetes mellitus Insulin sliding scale Accu-Cheks ACHS Monitor for hypoglycemia #. Congestive heart failure EF 55-60%, not in acute exacerbation #. Hypertension #. Hyperlipidemia #. History of CAD with heart catheterization and stent placement #. Peripheral arterial disease #. History of bilateral pulmonary embolism Aspirin 81 mg PO daily Plavix 75 mg PO daily lisinopril 2.5 mg PO daily Hold spironolactone-restart in AM Simvastatin 40 mg PO at bedtime #. GERD Protonix 40 mg PO daily DVT prophylaxis: Lovenox 40 mg subcutaneous daily GI prophylaxis: Protonix 40 mg PO daily The patient is admitted with an anticipated less than 2 midnight stay for evaluation of dyspnea CODE STATUS: No code Discussed with: Dr. Hyatt Anticipated discharge place: Home I have seen and evaluated the patient today. Discussed with the resident and agree with the residents finding and plan as documented in the resident's note. Changes highlighted in blue font. Past Medical History Past Medical History: Coronary Artery Disease (CAD), COPD, GERD/Reflux, Hyperlipidemia, Hypertension, Myocardial Infarction ([place]), Pulmonary Embolus (P [place]), Renal Disease Additional Past Medical History / Comment(s): Home oxygen prn and pt states he usually wears at night at 2.5 liters, bilateral PEs in 2003, ETOH abuse-pt sta hoang he has never had withdrawal symptoms, chronic low back pain/sciatica/spurs/disc disease much improved after back injections, past urinary retention, diverticulitis/benign colon polyps removed, nephrolithiasis- passed stones on his own, shingelles 16 years ago-R shoulder. Last Myocardial Infarction Date:: 2010 History of Any Multi-Drug Resistant Organisms: None Reported Past Surgical History: Heart Catheterization With Stent Additional Past Surgical History / Comment(s): Back injections for pain, piece of metal removed from rt eye, EGD, colonoscopy Past Anesthesia/Blood Transfusion Reactions: No Reported Reaction Additional Past Anesthesia/Blood Transfusion Reaction / Comment(s): claustrophobia Date of Last Stent Placement:: 2010 Past Psychological History: Anxiety, Depression, PTSD Smoking Status: Former smoker Past Alcohol Use History: None Reported Past Drug Use History: None Reported - Past Family History Mother Family Medical History: Cancer Additional Family Medical History / Comment(s): from breast cancer at age 53 Father Family Medical History: Coronary Artery Disease (CAD), Myocardial Infarction ([place]) Additional Family Medical History / Comment(s): 4 mi's/CABG. at at age 72 Medications and Allergies Home Medications Medication Instructions Recorded Confirmed Type Aspirin EC [Ecotrin Low Dose] 81 mg PO DAILY 06/22/18 04/16/24 History Budesonide/Formoterol Fumarate 2 puff INHALATION RT-BID 06/22/18 04/16/24 History [Symbicort 160-4.5 Mcg Inhaler] Ipratropium/Albuterol Sulfate 1 puff INHALATION RT-QID 06/22/18 04/16/24 History [Combivent Respimat Inhaler] Metoprolol Tartrate [Lopressor] 25 mg PO BID 06/22/18 04/16/24 History Spironolactone 25 mg PO DAILY 06/22/18 04/16/24 History lisinopriL [Zestril] 2.5 mg PO HS 06/22/18 04/16/24 History Clopidogrel Bisulfate [Plavix] 75 mg PO DAILY 07/01/18 04/16/24 History Albuterol Inhaler [Ventolin Hfa 2 puff INHALATION RT-Q6H PRN 12/07/19 04/16/24 History Inhaler] Albuterol Nebulized [Ventolin 2.5 mg INHALATION RT-QID 12/07/19 04/16/24 History Nebulized] Loratadine [Claritin] 10 mg PO DAILY 12/07/19 04/16/24 History Simvastatin [Zocor] 40 mg PO HS 12/07/19 04/16/24 History Tiotropium 18 Mcg/Puff [Spiriva] 2 puff INHALATION RT-DAILY 12/07/19 04/16/24 History Cholecalciferol [Vitamin D3 (25 25 mcg PO BID 03/17/24 04/16/24 History Mcg = 1000 Iu)] Ferrous Sulfate [Iron (65 MG 325 mg PO W/LUNCH 04/06/24 04/16/24 History Elemental)] Folic Acid 1 mg PO DAILY 04/06/24 04/16/24 History Gabapentin [Neurontin] 100 mg PO BID 04/06/24 04/16/24 History Pantoprazole [Protonix] 40 mg PO W/BRKFST 04/06/24 04/16/24 History Vitamin B-12 50mcg 50 mcg PO DAILY 04/06/24 04/16/24 History metFORMIN HCL 500 mg PO BID-W/MEALS 04/06/24 04/16/24 History Furosemide [Lasix] 20 mg PO DIRECTED 04/16/24 04/16/24 History predniSONE [Deltasone] See Taper PO DIRECTED 04/16/24 04/16/24 History Allergies Allergy/AdvReac Type Severity Reaction Status Date / Time fluticasone AdvReac Nausea Verified 04/16/24 08:24 [From Partha Nice] levofloxacin [From Levaquin] AdvReac TENDON PAIN Verified 04/16/24 08:24 salmeterol AdvReac Nausea Verified 04/16/24 08:24 [From Partha Nice] Physical Exam Vitals: Vital Signs Temp Pulse Resp BP Pulse Ox 04/16/24 09:57 112 H 20 100/63 99 04/16/24 09:56 112 H 20 100/63 99 04/16/24 09:13 111 H 24 04/16/24 08:58 24 04/16/24 08:51 117 H 24 04/16/24 08:43 116 H 24 88/60 90 L 04/16/24 08:24 97.9 F 103 H 28 H 152/94 86 L Intake and Output 04/15/24 04/16/24 04/16/24 22:59 06:59 14:59 Other: Weight 113.398 kg Results CBC & Chem 7: 04/16/24 08:47 04/16/24 08:47 Labs: Abnormal Lab Results - Last 24 Hours (Table) 04/16/24 04/16/24 04/16/24 Range/Units 08:47 08:47 08:47 WBC 14.3 H (3.8-10.6) k/uL Neutrophils # 11.2 H (1.3-7.7) k/uL PT 9.7 L (10.0-12.5) sec APTT 19.8 L (22.0-30.0) sec Sodium 135 L (137-145) mmol/L Chloride 97 L (98-107) mmol/L Carbon Dioxide 36 H (22-30) mmol/L Glucose 116 H (74-99) mg/dL Plasma Lactic Acid Sandor (0.7-2.0) mmol/L Total Protein 5.9 L (6.3-8.2) g/dL 04/16/24 Range/Units 08:47 WBC (3.8-10.6) k/uL Neutrophils # (1.3-7.7) k/uL PT (10.0-12.5) sec APTT (22.0-30.0) sec Sodium (137-145) mmol/L Chloride (98-107) mmol/L Carbon Dioxide (22-30) mmol/L Glucose (74-99) mg/dL Plasma Lactic Acid Sandor 3.2 H* (0.7-2.0) mmol/L Total Protein (6.3-8.2) g/dL
[2024-04-16 17:09] LABS: Glucose,Whole Blood 183 mg/dL (70-110)
[2024-04-16 19:58] LABS: Glucose,Whole Blood 165 mg/dL (70-110)
[2024-04-16] MEDS: SYMBICORT 160-4.5 MCG INHALER INHALATION SCH (20:07)
[2024-04-16] MEDS: METOPROLOL TARTRATE 25 MG TAB PO SCH (20:45)
[2024-04-16] MEDS: ATORVASTATIN 20 MG TAB PO SCH (20:45)
[2024-04-16] MEDS: GABAPENTIN 100 MG CAP PO SCH (20:45)
[2024-04-16] MEDS ORDERED: AMOXIC-POT CLAV 875-125MG 1 EACH TAB PO SCH (21:00)
[2024-04-17 06:12] LABS: Glucose,Whole Blood 161 mg/dL (70-110)
[2024-04-17 09:30] LABS: Basophils # (A) 0.01 X 10*3/uL (0.00-0.10); Basophils % (A) 0.1 %; Eosinophils # (A) 0 X 10*3/uL (0.04-0.35); Eosinophils % (A) 0 %; HCT 36.4 % (39.6-50.0); Lymphocytes # (A) 0.62 X 10*3/uL (0.90-5.00); Lymphocytes % (A) 4.2 %; MCH 27.4 pg (27.0-32.0); MCV 83.1 FL (80.0-97.0); Mean Platelet Volume 10.3 FL (9.5-12.2); Monocytes # (A) 0.19 X 10*3/uL (0.20-1.00); Monocytes % (A) 1.3 %; NRBC Per 100 WBC 0 X 10*3/uL (0.00-0.01); Neutrophils # (A) 13.92 X 10*3/uL (1.80-7.70); Neutrophils % (A) 93.3 %; Platelet Count 238 X 10*3/uL (140-440); RBC 4.38 X 10*6/uL (4.40-5.60); RDW 14.6 % (11.5-14.5); WBC 14.91 X 10*3/uL (4.50-10.00)
[2024-04-17] MEDS: LORATADINE 10 MG TAB PO SCH (10:30)
[2024-04-17] MEDS: ENOXAPARIN 40 MG/0.4 ML SYRINGE SQ SCH (10:30)
[2024-04-17 11:29] LABS: Glucose,Whole Blood 163 mg/dL (70-110)
[2024-04-17 11:58] LABS: BUN/Creat Ratio 12.38 Ratio (12.00-20.00); Blood Urea Nitrogen 9.9 mg/dL (9.0-27.0); Calcium 8.7 mg/dL (8.7-10.3); Carbon Dioxide 29.8 mmol/L (21.6-31.8); Chloride 98 mmol/L (96-109); Glucose 160 mg/dL (70-110); Potassium 4.9 mmol/L (3.5-5.5); Sodium 136 mmol/L (135-145)
--- NOTE | 2024-04-17 13:10 | P.PN ---
Subjective Progress Note Date: 04/17/24 Subjective: Patient seen and examined at bedside. No acute events overnight. Pertinent positives and negatives as discussed above, a complete review of systems was performed and all other systems are negative. Vitals Signs Reviewed. General: Nontoxic, no distress, appears at stated age overly obese, chronically ill-appearing Derm: Warm, dry Head: Atraumatic, normocephalic, symmetric Eyes: EOMI, no lid lag, anicteric sclera Mouth: No lip lesion, mucus membranes moist Cardiovascular: S1S2 reg, no murmur Lungs: Scattered expiratory wheezing, no accessory muscle use, supplemental oxygen Abdominal: Soft, nontender to palpation, no guarding, no appreciable organomegaly Ext: No gross muscle atrophy, no edema, no contractures Neuro: CN II-XI grossly intact, no focal neuro deficits Psych: Alert, oriented, appropriate affect Data Reviewed Today: Pertinent Labs: WBC 14.91, hemoglobin 12, creatinine 0.8, blood sugars range between 1 60-1 65 Imaging: No new imaging Assessment and Plan: #. Acute on chronic hypoxic respiratory failure #. Acute COPD exacerbation #. Acute COVID-19 infection #Leukocytosis, likely steroid-induced #Sepsis secondary to above IV Solu-Medrol 60 mg every 6 hours Spiriva daily Symbicort twice daily Ventolin HFA 4 times daily and as needed Oxygen supplementation as needed to maintain O2 saturation >88% Resolved #. Lactic acidosis Chronic #. Qfu-cqnxgaz-qulqyqcuy diabetes mellitus Insulin sliding scale Accu-Cheks ACHS Monitor for hypoglycemia #. Congestive heart failure EF 55-60%, not in acute exacerbation #. Hypertension #. Hyperlipidemia #. History of CAD with heart catheterization and stent placement #. Peripheral arterial disease #. History of bilateral pulmonary embolism Aspirin 81 mg PO daily Plavix 75 mg PO daily lisinopril 2.5 mg PO daily Hold spironolactone Simvastatin 40 mg PO at bedtime #. GERD Protonix 40 mg PO daily DVT ppx: Lovenox Code status: Full code Anticipated discharge place: Home Anticipated discharge time: Likely tomorrow Objective - Vital Signs Vital signs: Vital Signs Temp 97.7 F 04/17/24 07:27 Pulse 76 04/17/24 07:27 Resp 19 04/17/24 07:27 BP 111/63 04/17/24 07:27 Pulse Ox 100 12/22/24 09:30 FiO2 Intake & Output 04/16/24 04/17/24 04/17/24 18:59 06:59 18:59 Intake Total 240 180 Balance 240 180 Weight 113.398 kg 115.779 kg Intake: Oral 240 180 Other: # Voids 1 - Labs CBC & Chem 7: 04/17/24 06:04 04/17/24 06:04 Labs: Abnormal Lab Results - Last 24 Hours (Table) 04/16/24 04/16/24 04/17/24 Range/Units 17:08 19:56 06:04 WBC 14.91 H (4.50-10.00) X 10*3/uL RBC 4.38 L (4.40-5.60) X 10*6/uL Hgb 12.0 L (13.0-17.0) g/dL Hct 36.4 L (39.6-50.0) % RDW 14.6 H (11.5-14.5) % Immature Gran # 0.17 H (0.00-0.04) X 10*3/uL Neutrophils # 13.92 H (1.80-7.70) X 10*3/uL Lymphocytes # 0.62 L (0.90-5.00) X 10*3/uL Monocytes # 0.19 L (0.20-1.00) X 10*3/uL Eosinophils # 0 L (0.04-0.35) X 10*3/uL Glucose (70-110) mg/dL POC Glucose (mg/dL) 183 H 165 H (70-110) mg/dL 04/17/24 04/17/24 04/17/24 Range/Units 06:04 06:10 11:25 WBC (4.50-10.00) X 10*3/uL RBC (4.40-5.60) X 10*6/uL Hgb (13.0-17.0) g/dL Hct (39.6-50.0) % RDW (11.5-14.5) % Immature Gran # (0.00-0.04) X 10*3/uL Neutrophils # (1.80-7.70) X 10*3/uL Lymphocytes # (0.90-5.00) X 10*3/uL Monocytes # (0.20-1.00) X 10*3/uL Eosinophils # (0.04-0.35) X 10*3/uL Glucose 160 H (70-110) mg/dL POC Glucose (mg/dL) 161 H 163 H (70-110) mg/dL
[2024-04-17 16:51] LABS: Glucose,Whole Blood 157 mg/dL (70-110)
[2024-04-17 20:14] LABS: Glucose,Whole Blood 175 mg/dL (70-110)
[2024-04-18 06:34] LABS: Glucose,Whole Blood 147 mg/dL (70-110)
[2024-04-18 09:05] LABS: BUN/Creat Ratio 17.22 Ratio (12.00-20.00); Blood Urea Nitrogen 15.5 mg/dL (9.0-27.0); Calcium 8.7 mg/dL (8.7-10.3); Chloride 97 mmol/L (96-109); Glucose 177 mg/dL (70-110); Potassium 4.7 mmol/L (3.5-5.5); Sodium 135 mmol/L (135-145)
[2024-04-18 09:12] LABS: Basophils # (A) 0.01 X 10*3/uL (0.00-0.10); Basophils % (A) 0.1 %; Eosinophils # (A) 0.01 X 10*3/uL (0.04-0.35); Eosinophils % (A) 0.1 %; HGB 11.8 g/dL (13.0-17.0); Lymphocytes % (A) 3.2 %; MCH 27.4 pg (27.0-32.0); MCHC 31.9 g/dL (32.0-37.0); Mean Platelet Volume 10.6 FL (9.5-12.2); Monocytes # (A) 0.35 X 10*3/uL (0.20-1.00); Monocytes % (A) 1.9 %; NRBC Per 100 WBC 0 X 10*3/uL (0.00-0.01); Neutrophils # (A) 17.33 X 10*3/uL (1.80-7.70); Neutrophils % (A) 93.6 %; Platelet Count 239 X 10*3/uL (140-440); RDW 14.7 % (11.5-14.5); WBC 18.51 X 10*3/uL (4.50-10.00)
[2024-04-18 11:08] LABS: Glucose,Whole Blood 163 mg/dL (70-110)
--- NOTE | 2024-04-18 12:19 | P.DS ---
Providers Date of admission: 04/16/24 09:44 Expected date of discharge: 04/18/24 Attending physician: Aric Hyatt Primary care physician: [facility] Hospital Course: Hospital Course: Patient is a 78-year-old male with a past medical history significant for COPD on 3 L home oxygen, ncw-arhlpiy-kfhfsdttf diabetes mellitus, congestive heart failure (55-60%), hyperlipidemia, hypertension, history of CAD with heart catheterization and stent placement, history of bilateral PEs in 2003, history of alcohol abuse, chronic low back pain, history of urinary retention and nephrolithiasis, and GERD presented to the emergency department today for difficulty breathing. He was discharged on 04/12/2024 for similar complaints. He states that he was doing okay since the last discharge but last night he began having dyspnea and was gasping for air. He notes a productive cough of whitish-yellow sputum for the last 1 to 2 days. He reports trying to increase his oxygen at home but states that he does not think his oxygen at home works. He notes decreased oral intake over the last few days. He notes decreased sleep as he is scared he will wake up gasping for air so he has not been sleeping. He currently reports chills and dizziness. He notes several episodes of diarrhea last night, he was unable to characterize the diarrhea. He denies chest pain, abdominal pain, orthopnea. Initial EKG independently interpreted: Sinus ta chycardia, inferolateral ST depressions. Initial chest x-ray: COPD changes. Initial labs: WBC 14.3, hemoglobin 13.5, platelets 277, PT 9.7, INR 0.9, APTT 19.8, sodium 135, potassium 4.6, chloride 97, CO2 36, BUN 11, creatinine 0.87, glucose 116, lactate 3.2, troponin X1 0.024, COVID-19 positive. Initial vitals: T 97.9 F, MD 103 bpm, RR 28, BP 152/94, O2 86% 3 L nasal cannula. Who was admitted for acute COPD exacerbation. He has received albuterol inhaler, Symbicort inhaler, Solu-Medrol 60 mg IV every 6 hour, and Spiriva inhalation. Patient oxygen requirement has returned to baseline 3 L nasal cannula. He will be discharged with home oxygen as well as oral steroid taper. Outpatient follow-up with PCP and pulmonology. Patient is medically optimized for discharge. Patient is high risk for readmission. Final Diagnosis: #. Acute COPD exacerbation #. Acute on chronic respiratory failure #. COVID-19 positive #. Leukocytosis, possibly reactive to steroids #. Sepsis, secondary to COVID-pneumonia. Improved. #. Lactic acidosis. Resolved. #. Fci-zzknhpg-inxtjjphc diabetes mellitus #. Congestive heart failure EF 55-60%, not in acute exacerbation #. Hypertension #. Hyperlipidemia #. History of CAD with heart catheterization and stent placement #. Peripheral arterial disease #. History of bilateral pulmonary embolism #. GERD Physical examination: Vital signs reviewed General: No acute distress Derm: Warm, dry, intact Head: Atraumatic, normocephalic, symmetric Eyes: EOMI, anicteric sclera Mouth: No lip lesion, mucus membranes moist Cardiovascular: S1-S2 regular, no murmur Lungs: Mild bilateral expiratory wheezes, accessory muscle use Abdominal: Soft, non-tender to palpation Extremities: No cyanosis, clubbing, 2+ pitting edema bilaterally to the knee Neuro: Alert, oriented x 3, gross neurological examination did not reveal any focal deficits. Cranial nerves II to XII grossly intact. Psych: Appropriate affect and mood A total of 36 minutes of time were spent preparing this complex discharge summary. Patient was discharged on 04/18/2024 at 0926. I have seen and evaluated the patient today. Discussed with the resident and agree with the residents finding and plan as documented in the resident's note. Changes highlighted in blue font. Patient Condition at Discharge: Stable Plan - Discharge Summary Discharge Rx Participant: Yes New Discharge Prescriptions: Continue Aspirin EC [Ecotrin Low Dose] 81 mg PO DAILY Budesonide/Formoterol Fumarate [Symbicort 160-4.5 Mcg Inhaler] 2 puff INHALATION RT-BID Ipratropium/Albuterol Sulfate [Combivent Respimat Inhaler] 1 puff INHALATION RT-QID lisinopriL [Zestril] 2.5 mg PO HS Metoprolol Tartrate [Lopressor] 25 mg PO BID Spironolactone 25 mg PO DAILY Clopidogrel Bisulfate [Plavix] 75 mg PO DAILY Tiotropium 18 Mcg/Puff [Spiriva] 2 puff INHALATION RT-DAILY Simvastatin [Zocor] 40 mg PO HS Albuterol Nebulized [Ventolin Nebulized] 2.5 mg INHALATION RT-QID Loratadine [Claritin] 10 mg PO DAILY Albuterol Inhaler [Ventolin Hfa Inhaler] 2 puff INHALATION RT-Q6H PRN PRN Reason: Shortness Of Breath Cholecalciferol [Vitamin D3 (25 Mcg = 1000 Iu)] 25 mcg PO BID Pantoprazole [Protonix] 40 mg PO W/BRKFST Furosemide [Lasix] 20 mg PO DIRECTED Gabapentin [Neurontin] 100 mg PO BID metFORMIN HCL 500 mg PO BID-W/MEALS Ferrous Sulfate [Iron (65 MG Elemental)] 325 mg PO W/LUNCH Folic Acid 1 mg PO DAILY Vitamin B-12 50mcg 50 mcg PO DAILY Changed predniSONE [Deltasone] See Taper PO DIRECTED #25 tab Discharge Medication List Aspirin EC [Ecotrin Low Dose] 81 mg PO DAILY 06/22/18 [History] Budesonide/Formoterol Fumarate [Symbicort 160-4.5 Mcg Inhaler] 2 puff INHALATION RT-BID 06/22/18 [History] Ipratropium/Albuterol Sulfate [Combivent Respimat Inhaler] 1 puff INHALATION RT- QID 06/22/18 [History] Metoprolol Tartrate [Lopressor] 25 mg PO BID 06/22/18 [History] Spironolactone 25 mg PO DAILY 06/22/18 [History] lisinopriL [Zestril] 2.5 mg PO HS 06/22/18 [History] Clopidogrel Bisulfate [Plavix] 75 mg PO DAILY 07/01/18 [History] Albuterol Inhaler [Ventolin Hfa Inhaler] 2 puff INHALATION RT-Q6H PRN 12/07/19 [History] Albuterol Nebulized [Ventolin Nebulized] 2.5 mg INHALATION RT-QID 12/07/19 [History] Loratadine [Claritin] 10 mg PO DAILY 12/07/19 [History] Simvastatin [Zocor] 40 mg PO HS 12/07/19 [History] Tiotropium 18 Mcg/Puff [Spiriva] 2 puff INHALATION RT-DAILY 12/07/19 [History] Cholecalciferol [Vitamin D3 (25 Mcg = 1000 Iu)] 25 mcg PO BID 03/17/24 [History] Ferrous Sulfate [Iron (65 MG Elemental)] 325 mg PO W/LUNCH 04/06/24 [History] Folic Acid 1 mg PO DAILY 04/06/24 [History] Gabapentin [Neurontin] 100 mg PO BID 04/06/24 [History] Pantoprazole [Protonix] 40 mg PO W/BRKFST 04/06/24 [History] Vitamin B-12 50mcg 50 mcg PO DAILY 04/06/24 [History] metFORMIN HCL 500 mg PO BID-W/MEALS 04/06/24 [History] Furosemide [Lasix] 20 mg PO DIRECTED 04/16/24 [History] predniSONE [Deltasone] See Taper PO DIRECTED #25 tab 04/18/24 [Rx] Follow up Appointment(s)/Referral(s): Mindy Vargas MD [STAFF PHYSICIAN] - 05/10/24 10:00 am [facility]inic [Primary Care Provider] - 1-2 days (Office is not answering at time of discharge. Please call for follow-up appointment.) Patient Instructions/Handouts: COPD (Chronic Obstructive Pulmonary Disease) (DC) Activity/Diet/Wound Care/Special Instructions: Home care and oxygen ordered through the [facility]. Please call them to follow up if you have questions. Please see primary care provider and international exchange coordinator. Discharge Disposition: HOME SELF-CARE
[2024-04-18 14:12] VITALS: BP 124/60; PULSE 70; RESP 19; TEMP 98.2
== END 2024-04-18 16:33 | disposition home or self-care (01) | DRG 871 ==
LOC: EC 08:23 → 4SSUR 09:44
PROVIDERS: ADMIT Student in an Organized Health Care Education/Training Program; ATTEND Student in an Organized Health Care Education/Training Program
DX: A41.89 Other specified sepsis (principal); J12.82 Pneumonia due to coronavirus disease 2019; U07.1 COVID-19; J96.21 Acute and chronic respiratory failure with hypoxia; J44.1 Chronic obstructive pulmonary disease with (acute) exacerbation; J44.0 Chronic obstructive pulmonary disease with (acute) lower respiratory infection; E87.20 Acidosis, unspecified; E11.51 Type 2 diabetes mellitus with diabetic peripheral angiopathy without gangrene; I73.9 Peripheral vascular disease, unspecified; E78.5 Hyperlipidemia, unspecified; F32.A Depression, unspecified; F40.240 Claustrophobia; F43.10 Post-traumatic stress disorder, unspecified; I11.0 Hypertensive heart disease with heart failure; T38.0X5A Adverse effect of glucocorticoids and synthetic analogues, initial encounter; D72.829 Elevated white blood cell count, unspecified; I25.10 Atherosclerotic heart disease of native coronary artery without angina pectoris; K21.9 Gastro-esophageal reflux disease without esophagitis; I50.9 Heart failure, unspecified; I25.2 Old myocardial infarction; Z79.82 Long term (current) use of aspirin; Z79.899 Other long term (current) drug therapy; Z79.02 Long term (current) use of antithrombotics/antiplatelets; Z79.84 Long term (current) use of oral hypoglycemic drugs; Z79.51 Long term (current) use of inhaled steroids; Z99.81 Dependence on supplemental oxygen; Z86.711 Personal history of pulmonary embolism; Z87.891 Personal history of nicotine dependence; Z95.5 Presence of coronary angioplasty implant and graft
CPT/HCPCS: 36415; 71046; 80048; 80053; 83605; 83735; 84484; 85025; 85610; 85730; 87040; 87636; 93005; 94640; 94760; 96374; 96375; 96376; 99285

== ENCOUNTER 2024-04-25 15:44 | Inpatient (IN) | payer OTHER, MEDICARE ==
--- NOTE | 2024-04-25 16:05 | ED ---
General Adult HPI - General Source: patient Mode of arrival: wheelchair Limitations: no limitations <Lila Quijano - Last Filed: 04/25/24 16:03> - General Source: RN notes reviewed, old records reviewed <Ayad Whaley - Last Filed: 04/25/24 22:49> - General Chief complaint: Shortness of Breath Stated complaint: SOB Time Seen by Provider: 04/25/24 16:03 - History of Present Illness Initial comments: 78-year-old male presenting with chief complaint of difficulty breathing. History of COPD. Patient was told that he might have COVID. Wears oxygen as needed at home (Lila Quijano) 78-year-old male presenting with increased cough and dyspnea, history of COPD. Patient wears oxygen as needed at home. He denies central chest pain. Denies fever. Cough is mildly productive. (Ayad Whaley) - Related Data Home Medications Medication Instructions Recorded Confirmed Aspirin EC [Ecotrin Low Dose] 81 mg PO DAILY 06/22/18 04/16/24 Budesonide/Formoterol Fumarate 2 puff INHALATION RT-BID 06/22/18 04/16/24 [Symbicort 160-4.5 Mcg Inhaler] Ipratropium/Albuterol Sulfate 1 puff INHALATION RT-QID 06/22/18 04/16/24 [Combivent Respimat Inhaler] Metoprolol Tartrate [Lopressor] 25 mg PO BID 06/22/18 04/16/24 Spironolactone 25 mg PO DAILY 06/22/18 04/16/24 lisinopriL [Zestril] 2.5 mg PO HS 06/22/18 04/16/24 Clopidogrel Bisulfate [Plavix] 75 mg PO DAILY 07/01/18 04/16/24 Albuterol Inhaler [Ventolin Hfa 2 puff INHALATION RT-Q6H PRN 12/07/19 04/16/24 Inhaler] Albuterol Nebulized [Ventolin 2.5 mg INHALATION RT-QID 12/07/19 04/16/24 Nebulized] Loratadine [Claritin] 10 mg PO DAILY 12/07/19 04/16/24 Simvastatin [Zocor] 40 mg PO HS 12/07/19 04/16/24 Tiotropium 18 Mcg/Puff [Spiriva] 2 puff INHALATION RT-DAILY 12/07/19 04/16/24 Cholecalciferol [Vitamin D3 (25 25 mcg PO BID 03/17/24 04/16/24 Mcg = 1000 Iu)] Ferrous Sulfate [Iron (65 MG 325 mg PO W/LUNCH 04/06/24 04/16/24 Elemental)] Folic Acid 1 mg PO DAILY 04/06/24 04/16/24 Gabapentin [Neurontin] 100 mg PO BID 04/06/24 04/16/24 Pantoprazole [Protonix] 40 mg PO W/BRKFST 04/06/24 04/16/24 Vitamin B-12 50mcg 50 mcg PO DAILY 04/06/24 04/16/24 metFORMIN HCL 500 mg PO BID-W/MEALS 04/06/24 04/16/24 Furosemide [Lasix] 20 mg PO DIRECTED 04/16/24 04/16/24 Previous Rx's Medication Instructions Recorded predniSONE [Deltasone] See Taper PO DIRECTED #25 tab 04/18/24 Allergies Allergy/AdvReac Type Severity Reaction Status Date / Time fluticasone AdvReac Nausea Verified 04/25/24 15:53 [From Wixela Inhub] levofloxacin [From Levaquin] AdvReac TENDON PAIN Verified 04/25/24 15:53 salmeterol AdvReac Nausea Verified 04/25/24 15:53 [From Wixela Inhub] Review of Systems ROS Other: All systems not noted in ROS Statement are negative. <Lila Qujiano - Last Filed: 04/25/24 16:03> ROS Other: All systems not noted in ROS Statement are negative. <Ayad Whaley - Last Filed: 04/25/24 22:49> ROS Statement: Those systems with pertinent positive or pertinent negative responses have been documented in the HPI. Past Medical History Past Medical History: Coronary Artery Disease (CAD), COPD, GERD/Reflux, Hyperlipidemia, Hypertension, Myocardial Infarction (GA), Pulmonary Embolus (PE), Renal Disease Additional Past Medical History / Comment(s): Home oxygen prn and pt states he usually wears at night at 2.5 liters, bilateral PEs in 2003, ETOH abuse-pt states he has never had withdrawal symptoms, chronic low back pain/sciatica/spurs/disc disease much improved after back injections, past urinary retention, diverticulitis/benign colon polyps removed, nephrolithiasis- passed stones on his own, shingelles 16 years ago-R shoulder. Last Myocardial Infarction Date:: 2010 History of Any Multi-Drug Resistant Organisms: None Reported Past Surgical History: Heart Catheterization With Stent Additional Past Surgical History / Comment(s): Back injections for pain, piece of metal removed from rt eye, EGD, colonoscopy Past Anesthesia/Blood Transfusion Reactions: No Reported Reaction Additional Past Anesthesia/Blood Transfusion Reaction / Comment(s): claustrophobia Date of Last Stent Placement:: 2010 Past Psychological History: Anxiety, Depression, PTSD Smoking Status: Former smoker Past Alcohol Use History: None Reported Past Drug Use History: None Reported - Past Family History Mother Family Medical History: Cancer Additional Family Medical History / Comment(s): from breast cancer at age 53 Father Family Medical History: Coronary Artery Disease (CAD), Myocardial Infarction (GA) Additional Family Medical History / Comment(s): 4 mi's/CABG. at at age 72 <Lila Quijano - Last Filed: 04/25/24 16:03> General Exam Limitations: no limitations <Lila Quijano - Last Filed: 04/25/24 16:03> General appearance: alert, in no apparent distress Head exam: Present: atraumatic, normocephalic Eye exam: Present: normal appearance, PERRL ENT exam: Present: normal exam Neck exam: Present: normal inspection Respiratory exam: Present: respiratory distress, wheezes, accessory muscle use, decreased breath sounds Cardiovascular Exam: Present: regular rate, normal rhythm GI/Abdominal exam: Present: soft. Absent: distended, tenderness Neurological exam: Present: alert, oriented X3, CN II-XII intact. Absent: motor sensory deficit Psychiatric exam: Present: normal affect, normal mood Skin exam: Present: warm, dry, intact <Ayad Whaley - Last Filed: 04/25/24 22:49> - General Exam Comments Initial Comments: Visual Physical Exam Vital signs reviewed General: Well-appearing, nontoxic, no acute distress. Head: Normocephalic, atraumatic Eyes: PERRLA, EOMI ENT: Airway patent Chest: labored breathing on room air Skin: No visual rash, normal skin tone Neuro: Alert and oriented 3 Musculoskeletal: No gross abnormalities (Lila Quijano) Course Vital Signs 04/25/24 04/25/24 04/25/24 15:51 15:53 20:28 Temperature 97.6 F Pulse Rate 69 70 Respiratory 18 16 Rate Blood Pressure 106/65 112/74 O2 Sat by Pulse 81 L 95 Oximetry Medical Decision Making <Lila Quijano - Last Filed: 04/25/24 16:03> - Lab Data Result diagrams: 04/25/24 17:36 04/25/24 17:36 <Ayad Whaley - Last Filed: 04/25/24 22:49> - Medical Decision Making I performed the quick note portion of this visit, electronically signed Lila Quijano PA-C (Lila Quijano) Was pt. sent in by a medical professional or institution (ELVIN Wilburn, [employer], urgent care, hospital, or penitentiary...) When possible be specific @ -No Did you speak to anyone other than the patient for history (EMS, parent, family, police, friend...)? What history was obtained from this source @ -No Did you review nursing and triage notes (agree or disagree)? Why? @ -I reviewed and agree with nursing and triage notes Were old charts reviewed (outside hosp., previous admission, EMS record, old EKG, old radiological studies, urgent care reports/EKG's, penitentiary records)? Report findings @ -No old charts were reviewed Differential Dyspnea: Coronary syndrome, arrhythmia, tamponade, asthma, COPD, pulmonary embolism, pneumonia, pneumothorax, pulmonary effusion, anaphylaxis, diabetic ketoacidosis, flailed chest, pulmonary contusion, diaphragmatic rupture, anemia, neuromuscular, this is not meant to be an all-inclusive list. EKG interpreted by me (3pts min.). @Sinus rhythm rate of [address] segment elevation, NM interval 134, QRS duration 98, QTc 402 X-rays interpreted by me (1pt min.). @Chest x-ray negative for consolidated pneumonia, possible left pleural effusion CT interpreted by me (1pt min.). @ -None done U/S interpreted by me (1pt. min.). @ -None done What testing was considered but not performed or refused? (CT, X-rays, U/S, labs)? Why? @ -None What meds were considered but not given or refused? Why? @ -None Did you discuss the management of the patient with other professionals (professionals i.e. , PA, [employer] DEVELOPER, lab, RT, psych nurse, director of social work, deli manager, teacher, boating safety officer, ed case manager)? Give summary @ -[Dr. Linares Was smoking cessation discussed for >3mins.? @ -No Was critical care preformed (if so, how long)? @, 35 minutes Were there social determinants of health that impacted care today? How? (Homelessness, low income, unemployed, alcoholism, drug addiction, transportation, low edu. Level, literacy, decrease access to med. care, residential, rehab)? @ -No Was there de-escalation of care discussed even if they declined (Discuss DNR or withdrawal of care, Hospice)? DNR status @ -No What co-morbidities impacted this encounter? (DM, HTN, Smoking, COPD, CAD, Cancer, CVA, ARF, Chemo, Hep., AIDS, mental health diagnosis, sleep apnea, morbid obesity)? @ -[COPD Was patient admitted / discharged? Hospital course, mention meds given and route, prescriptions, significant lab abnormalities, going to OR and other pertinent info. @ -78-year-old male presenting with increased cough and dyspnea, wheezing bilaterally, history of COPD. Patient is hypoxic upon arrival requiring supplemental oxygen. Given albuterol, Atrovent, steroids, started on anti biotics for COPD exacerbation. Chest x-ray does not reveal a consolidated pneumonia, no pneumothorax, laboratory testing is essentially unremarkable. Patient admitted for COPD exacerbation. Undiagnosed new problem with uncertain prognosis? @ -No Drug Therapy requiring intensive monitoring for toxicity (Heparin, Nitro, Insulin, Cardizem)? @ -No Were any procedures done? @ -No Diagnosis/symptom? @COPD exacerbation Acute, or Chronic, or Acute on Chronic? @ -Acute on chronic Uncomplicated (without systemic symptoms) or Complicated (systemic symptoms)? @ -Default Side effects of treatment? @ -No Exacerbation, Progression, or Severe Exacerbation? @ -No Poses a threat to life or bodily function? How? (Chest pain, USA, GA, pneumonia, PE, COPD, DKA, ARF, appy, cholecystitis, CVA, Diverticulitis, Homicidal, Suicidal, threat to staff... and all critical care pts) @ -[Yes, COPD, respiratory failure (JovanaAyad Martin) - Lab Data Lab Results 04/25/24 04/25/24 04/25/24 Range/Units 16:45 17:36 17:36 WBC 15.3 H (3.8-10.6) k/uL RBC 5.15 (4.30-5.90) m/uL Hgb 14.3 (13.0-17.5) gm/dL Hct 43.0 (39.0-53.0) % MCV 83.5 (80.0-100.0) fL MCH 27.7 (25.0-35.0) pg MCHC 33.2 (31.0-37.0) g/dL RDW 14.6 (11.5-15.5) % Plt Count 266 (150-450) k/uL MPV 6.9 Neutrophils % 83 % Lymphocytes % 9 % Monocytes % 7 % Eosinophils % 0 % Basophils % 0 % Neutrophils # 12.6 H (1.3-7.7) k/uL Lymphocytes # 1.3 (1.0-4.8) k/uL Monocytes # 1.1 H (0-1.0) k/uL Eosinophils # 0.0 (0-0.7) k/uL Basophils # 0.0 (0-0.2) k/uL PT 10.4 (10.0-12.5) sec INR 0.9 (<1.2) APTT 19.2 L (22.0-30.0) sec Sodium (137-145) mmol/L Potassium (3.5-5.1) mmol/L Chloride (98-107) mmol/L Carbon Dioxide (22-30) mmol/L Anion Gap mmol/L BUN (9-20) mg/dL Creatinine (0.66-1.25) mg/dL Est GFR (CKD-EPI)AfAm (>60 ml/min/1.73 sqM) Est GFR (CKD-EPI)NonAf (>60 ml/min/1.73 sqM) Glucose (74-99) mg/dL Plasma Lactic Acid Sandor (0.7-2.0) mmol/L Calcium (8.4-10.2) mg/dL Magnesium (1.6-2.3) mg/dL Total Bilirubin (0.2-1.3) mg/dL AST (17-59) U/L ALT (4-49) U/L Alkaline Phosphatase (38-126) U/L Troponin I (0.000-0.034) ng/mL NT-Pro-B Natriuret Pep pg/mL Total Protein (6.3-8.2) g/dL Albumin (3.5-5.0) g/dL Influenza Type A (PCR) Not Detected (Not Detectd) Influenza Type B (PCR) Not Detected (Not Detectd) RSV (PCR) Not Detected (Not Detectd) SARS-CoV-2 (PCR) Not Detected (Not Detectd) 04/25/24 04/25/24 04/25/24 Range/Units 17:36 17:36 17:36 WBC (3.8-10.6) k/uL RBC (4.30-5.90) m/uL Hgb (13.0-17.5) gm/dL Hct (39.0-53.0) % MCV (80.0-100.0) fL MCH (25.0-35.0) pg MCHC (31.0-37.0) g/dL RDW (11.5-15.5) % Plt Count (150-450) k/uL MPV Neutrophils % % Lymphocytes % % Monocytes % % Eosinophils % % Basophils % % Neutrophils # (1.3-7.7) k/uL Lymphocytes # (1.0-4.8) k/uL Monocytes # (0-1.0) k/uL Eosinophils # (0-0.7) k/uL Basophils # (0-0.2) k/uL PT (10.0-12.5) sec INR (<1.2) APTT (22.0-30.0) sec Sodium 130 L (137-145) mmol/L Potassium 4.3 (3.5-5.1) mmol/L Chloride 90 L (98-107) mmol/L Carbon Dioxide 33 H (22-30) mmol/L Anion Gap 7 mmol/L BUN 40 H (9-20) mg/dL Creatinine 1.09 (0.66-1.25) mg/dL Est GFR (CKD-EPI)AfAm 76 (>60 ml/min/1.73 sqM) Est GFR (CKD-EPI)NonAf 66 (>60 ml/min/1.73 sqM) Glucose 126 H (74-99) mg/dL Plasma Lactic Acid Sandor 1.0 (0.7-2.0) mmol/L Calcium 9.2 (8.4-10.2) mg/dL Magnesium 2.0 (1.6-2.3) mg/dL Total Bilirubin 0.7 (0.2-1.3) mg/dL AST 19 (17-59) U/L ALT 23 (4-49) U/L Alkaline Phosphatase 58 (38-126) U/L Troponin I 0.020 (0.000-0.034) ng/mL NT-Pro-B Natriuret Pep 567 pg/mL Total Protein 6.4 (6.3-8.2) g/dL Albumin 4.0 (3.5-5.0) g/dL Influenza Type A (PCR) (Not Detectd) Influenza Type B (PCR) (Not Detectd) RSV (PCR) (Not Detectd) SARS-CoV-2 (PCR) (Not Detectd) Critical Care Time Critical Care Time: Yes Total Critical Care Time: 35 <Ayad Whaley - Last Filed: 04/25/24 22:49> Disposition <Lila Quijano - Last Filed: 04/25/24 16:03> Is patient prescribed a controlled substance at d/c from ED?: No Time of Disposition: 22:49 <Ayad Whaley - Last Filed: 04/25/24 22:49> Clinical Impression: COPD with acute exacerbation Disposition: ADMITTED IP TO THIS HOSP Condition: Stable
--- NOTE | 2024-04-25 16:50 | XR ---
Chest, 2 view. HISTORY: Difficulty breathing COMPARISON: 04/16/2024 TECHNIQUE: PA and lateral views the chest are obtained. FINDINGS: The lungs are clear and there is no consolidative or interstitial opacity. There is no pleural effusion or pneumothorax. The heart, pulmonary vasculature, mediastinum and iftikhar appear normal. The osseous structures are intact. IMPRESSION: No significant abnormality seen. No acute cardiopulmonary disease. [facility], Workstation: JOSE A 04/25/2024 4:47 PM
[2024-04-25 17:57] LABS: Basophils % (A) 0 %; Eosinophils % (A) 0 %; HGB 14.3 gm/dL (13.0-17.5); Lymphocytes # (A) 1.3 k/uL (1.0-4.8); Lymphocytes % (A) 9 %; MCH 27.7 pg (25.0-35.0); MCHC 33.2 g/dL (31.0-37.0); MCV 83.5 fL (80.0-100.0); Mean Platelet Volume 6.9; Monocytes # (A) 1.1 k/uL (0-1.0); Monocytes % (A) 7 %; Neutrophils # (A) 12.6 k/uL (1.3-7.7); Neutrophils % (A) 83 %; Platelet Count 266 k/uL (150-450); RBC 5.15 m/uL (4.30-5.90); RDW 14.6 % (11.5-15.5); WBC 15.3 k/uL (3.8-10.6)
[2024-04-25 18:15] LABS: ALT 23 U/L (4-49); AST 19 U/L (17-59); African American GFR (CKD) 76 (>60 ml/min/1.73 sqM); Alkaline Phosphatase 58 U/L (38-126); Anion Gap 7 mmol/L; Blood Urea Nitrogen 40 mg/dL (9-20); Calcium 9.2 mg/dL (8.4-10.2); Carbon Dioxide 33 mmol/L (22-30); Chloride 90 mmol/L (98-107); Glucose 126 mg/dL (74-99); Non-African American GFR(CKD) 66 (>60 ml/min/1.73 sqM); Potassium 4.3 mmol/L (3.5-5.1); Sodium 130 mmol/L (137-145); Total Bilirubin 0.7 mg/dL (0.2-1.3); Total Protein 6.4 g/dL (6.3-8.2)
[2024-04-25 18:23] LABS: NT-Pro-B-Type Natriuretic Pept 567 pg/mL
[2024-04-25 18:43] LABS: INR 0.9 (<1.2); Partial Thromboplastin Time 19.2 sec (22.0-30.0); Prothrombin Time 10.4 sec (10.0-12.5)
[2024-04-25] MEDS ORDERED: IPRATROPIUM-ALBUTEROL 3 ML NEB INHALATION PRN (22:07)
[2024-04-25] MEDS ORDERED: ACETAMINOPHEN TAB 325 MG TAB PO PRN (22:07)
[2024-04-25] MEDS ORDERED: NALOXONE 0.4 MG/ML 1 ML VIAL IVP PRN (22:07)
[2024-04-25] MEDS: methylPREDNISolone SOD SUCCI 125 MG/2 ML VIAL IV SCH (23:16)
[2024-04-25] MEDS: ALBUTEROL NEBULIZED 2.5 MG/3 ML INHALATION STA (23:41)
[2024-04-25] MEDS: IPRATROPIUM-ALBUTEROL 3 ML NEB INHALATION STA (23:41)
[2024-04-26] MEDS: AZITHROMYCIN 500 MG in SODIUM CHLORIDE 0.9% 250 ML IVPB STA (01:07)
--- NOTE | 2024-04-26 02:12 | P.HPIM ---
History of Present Illness H&P Date: 04/25/24 Patient is a 78-year-old male with a PMH of COPD with chronic hypoxic respiratory failure on 3 L of the cannula oxygen at home continuously, diastolic CHF, type II DM, hypertension, hyperlipidemia, CAD status post multiple stents, nephrolithiasis, and history of bilateral PEs along with history of alcohol abuse who presents to the emergency room with complaints of shortness of breath. The patient reports that over the past few days, he has been having a cough somewhat productive of yellow-green phlegm and also has been feeling more short of breath than usual. Of note, the patient was recently admitted to the hospital from 04/16 to 04/18 for acute COPD exacerbation and COVID-19 infection. The patient reports that after his discharge, he felt better only for a few days and then his symptoms began to worsen again. Patient also reports bilateral lower extremity edema that has been worsening over the past few days. He denied experiencing chest discomfort, nausea, vomiting, or dizziness. Also denied lower extremity swelling or pain. In the emergency room a chest x-ray was unremarkable with EKG showing sinus rhythm at [address]/T wave changes noted as reviewed by me. Laboratory evaluation was remarkable for leukocytosis of 15.3, sodium 130, chloride 90, CO2 33, BUN 40, troponin 0.020 with proBNP 567 with respiratory viral panel negative. ED documentation reviewed and case discussed with ED provider. Review of systems: Pertinent positives and negatives as discussed in HPI, a complete review of systems was performed and all other systems are negative. Physical examination: Vital signs reviewed General: non toxic, no distress, appears at stated age, obese Derm: no unusual rashes/lesions, warm Head: atraumatic, normocephalic, symmetric Eyes: EOMI, no lid lag, anicteric sclera, pupils equal round reactive to light ENT: Nose and ears atraumatic Neck: No cervical lymphadenopathy, trachea midline, supple Mouth: no lip lesion, mucus membranes moist 78-year-old male Cardiovascular: S1S2 reg, no murmur, positive dorsalis pedis pulse bilateral, 2+ bilateral lower extremity pitting edema to knees Lungs: Poor air entry bilaterally with diffuse coarse breath sounds and expiratory wheezing, no accessory muscle use Abdominal: soft, nontender to palpation, no guarding Ext: muscle strength 5 out of 5 in all 4 extremities grossly, no gross muscle atrophy, no contractures, Neuro: CN II-XI grossly intact, no gross focal neuro deficits Psych: Alert, oriented, appropriate affect Assessment: Acute COPD exacerbation Hyponatremia Pre-renal azotemia Chronic conditions: Diastolic CHF, type II DM, hypertension, hyperlipidemia, CAD, history of PE. Imaging: In the emergency room a chest x-ray was unremarkable with EKG showing sinus rhythm at [address]/T wave changes noted as reviewed by me. Data Review: Laboratory evaluation was remarkable for leukocytosis of 15.3, sodium 130, chloride 90, CO2 33, BUN 40, troponin 0.020 with proBNP 567 with respiratory viral panel negative. Plan: Continue with Solu-Medrol 60 mg every 6 hourly Insulin sliding scale with blood glucose monitoring Pulmonary consulted Karey [id number] and as needed Supplemental oxygen Resume home medications once reconciled DVT prophylaxis: Lovenox subcu The patient is admitted with an anticipated greater than 2 midnight stay for evaluation of COPD exacerbation CODE STATUS: Full Code Discussed with: Patient Anticipated discharge place: Home Past Medical History Past Medical History: Coronary Artery Disease (CAD), COPD, GERD/Reflux, Hyperlipidemia, Hypertension, Myocardial Infarction ([place]), Pulmonary Embolus (PE), Renal Disease Additional Past Medical History / Comment(s): Home oxygen prn and pt states he usually wears at night at 2.5 liters, bilateral PEs in 2003, ETOH abuse-pt states he has never had withdrawal symptoms, chronic low back pain/sciatica/spurs/disc disease much improved after back injections, past urinary retention, diverticulitis/benign colon polyps removed, nephrolithiasis- passed stones on his own, shingelles 16 years ago-R shoulder. Last Myocardial Infarction Date:: 2010 History of Any Multi-Drug Resistant Organisms: None Reported Past Surgical History: Heart Catheterization With Stent Additional Past Surgical History / Comment(s): Back injections for pain, piece of metal removed from rt eye, EGD, colonoscopy Past Anesthesia/Blood Transfusion Reactions: No Reported Reaction Additional Past Anesthesia/Blood Transfusion Reaction / Comment(s): claustrophobia Date of Last Stent Placement:: 2010 Past Psychological History: Anxiety, Depression, PTSD Additional Psychological History / Comment(s): Pt states he now lives alone, spouse and children are Smoking Status: Former smoker Past Alcohol Use History: None Reported Additional Past Alcohol Use History / Comment(s): Pt started smoking in 1965 and quit in 2015. Past Drug Use History: None Reported - Past Family History Mother Family Medical History: Cancer Additional Family Medical History / Comment(s): from breast cancer at age 53 Father Family Medical History: Coronary Artery Disease (CAD), Myocardial Infarction ([place]) Additional Family Medical History / Comment(s): 4 mi's/CABG. at at age 72 Medications and Allergies Home Medications Medication Instructions Recorded Confirmed Type Aspirin EC [Ecotrin Low Dose] 81 mg PO DAILY 06/22/18 04/16/24 History Budesonide/Formoterol Fumarate 2 puff INHALATION RT-BID 06/22/18 04/16/24 History [Symbicort 160-4.5 Mcg Inhaler] Ipratropium/Albuterol Sulfate 1 puff INHALATION RT-QID 06/22/18 04/16/24 History [Combivent Respimat Inhaler] Metoprolol Tartrate [Lopressor] 25 mg PO BID 06/22/18 04/16/24 History Spironolactone 25 mg PO DAILY 06/22/18 04/16/24 History lisinopriL [Zestril] 2.5 mg PO HS 06/22/18 04/16/24 History Clopidogrel Bisulfate [Plavix] 75 mg PO DAILY 07/01/18 04/16/24 History Albuterol Inhaler [Ventolin Hfa 2 puff INHALATION RT-Q6H PRN 12/07/19 04/16/24 History Inhaler] Albuterol Nebulized [Ventolin 2.5 mg INHALATION RT-QID 12/07/19 04/16/24 History Nebulized] Loratadine [Claritin] 10 mg PO DAILY 12/07/19 04/16/24 History Simvastatin [Zocor] 40 mg PO HS 12/07/19 04/16/24 History Tiotropium 18 Mcg/Puff [Spiriva] 2 puff INHALATION RT-DAILY 12/07/19 04/16/24 History Cholecalciferol [Vitamin D3 (25 25 mcg PO BID 03/17/24 04/16/24 History Mcg = 1000 Iu)] Ferrous Sulfate [Iron (65 MG 325 mg PO W/LUNCH 04/06/24 04/16/24 History Elemental)] Folic Acid 1 mg PO DAILY 04/06/24 04/16/24 History Gabapentin [Neurontin] 100 mg PO BID 04/06/24 04/16/24 History Pantoprazole [Protonix] 40 mg PO W/BRKFST 04/06/24 04/16/24 History Vitamin B-12 50mcg 50 mcg PO DAILY 04/06/24 04/16/24 History metFORMIN HCL 500 mg PO BID-W/MEALS 04/06/24 04/16/24 History Furosemide [Lasix] 20 mg PO DIRECTED 04/16/24 04/16/24 History predniSONE [Deltasone] See Taper PO DIRECTED #25 tab 04/18/24 Rx Allergies Allergy/AdvReac Type Severity Reaction Status Date / Time fluticasone AdvReac Nausea Verified 04/25/24 15:53 [From Wixela Inhub] levofloxacin [From Levaquin] AdvReac TENDON PAIN Verified 04/25/24 15:53 salmeterol AdvReac Nausea Verified 04/25/24 15:53 [From Wixela Inhub] Physical Exam Vitals: Vital Signs Temp Pulse Pulse Resp BP BP Pulse Ox 04/26/24 01:02 97.3 F L 78 17 130/76 97 04/26/24 00:11 85 04/26/24 00:10 63 18 114/67 99 04/25/24 23:41 80 04/25/24 23:18 75 20 102/67 100 04/25/24 20:28 70 16 112/74 95 04/25/24 15:53 81 L 04/25/24 15:51 97.6 F 69 18 106/65 Intake and Output 04/25/24 04/25/24 04/26/24 14:59 22:59 06:59 Other: Voiding Method Toilet Weight 116.573 kg 116.573 kg Results CBC & Chem 7: 04/25/24 17:36 04/25/24 17:36 Labs: Abnormal Lab Results - Last 24 Hours (Table) 04/25/24 04/25/24 04/25/24 Range/Units 17:36 17:36 17:36 WBC 15.3 H (3.8-10.6) k/uL Neutrophils # 12.6 H (1.3-7.7) k/uL Monocytes # 1.1 H (0-1.0) k/uL APTT 19.2 L (22.0-30.0) sec Sodium 130 L (137-145) mmol/L Chloride 90 L (98-107) mmol/L Carbon Dioxide 33 H (22-30) mmol/L BUN 40 H (9-20) mg/dL Glucose 126 H (74-99) mg/dL Thrombosis Risk Factor Assmnt - Choose All That Apply Any of the Below Risk Factors Present?: Yes Each Factor Represents 1 point: Obesity (BMI >25) Other Risk Factors: Yes Each Risk Factor Represents 3 Points: Age 75 years or older Thrombosis Risk Factor Assessment Total Risk Factor Score: 4 Thrombosis Risk Factor Assessment Level: Moderate Risk
--- NOTE | 2024-04-26 06:41 | P.CNPUL ---
History of Present Illness Consult date: 04/26/24 Requesting physician: Caesar Linares Reason for consult: COPD Chief complaint: Shortness of breath History of present illness: Patient is a 78-year-old male with past medical history significant for COPD, chronic oxygen dependence, hypertension, hyperlipidemia, PAD, heart failure, among other things. Patient follows in the pulmonary office with Dr. Vargas, for management of his very severe COPD. He has missed his follow up appointment. He has an FEV1 from 29% of predicted. Normally, maintained on oxygen 3 L/min nasal cannula at night. He utilizes a combination of Breyna, Spiriva, and alb uterol nebs [id number]. Of note, this is the patient's third hospitalization this month for acute COPD exacerbation. Most recently admitted 04/11 through 04/18 with acute COVID infection and COPD exacerbation. Patient was eventually discharged home with prednisone taper, which he reportedly did not clam picker from the pharmacy. Patient returns to the emergency department yesterday afternoon complaining of progressively worsening shortness of breath since his hospital discharge. Endorses chest tightness and wheezing. Has a intermittently productive cough with occasional yellow sputum production. Denies any fevers, chills, chest pain, hemoptysis. Admits poor appetite. Denies nausea, vomting, diarrhea. Chest x-ray does not show any significant cardiopulmonary process. No focal infiltrates concerning for pneumonia. He was given dose of azithromycin and Rocephin in the ED. Viral screen now negative for COVID, influenza, RSV. CBC remarkable for leukocytosis with a WBC count of 15.3, possibly secondary to steroid use. CMP: Sodium 130, potassium 4.3, chloride 90, serum bicarb 33, BUN 40, creatinine 1.09, glucose 126. Troponin 0.02. NT proBNP 567. EKG: Normal sinus rhythm, rate 84 bpm, mild diffuse ST depressions. Current vitals: Temperature 97.3 F, SpO2 is 97% on 2 to 3 L nasal cannula, nontachypneic, heart rate 70 bpm, blood pressure 130/76 mmHg. Review of Systems Constitutional: Reports poor appetite, Reports weight gain, Denies chills, Denies fatigue, Denies fever, Denies weight loss Ears, nose, mouth and throat: Denies nasal congestion, Denies nasal discharge, Denies post-nasal drip, Denies sinus pain, Denies sinus pressure, Denies sore throat Cardiovascular: Reports dyspnea on exertion, Reports leg edema, Denies chest pain, Denies orthopnea, Denies palpitations, Denies paroxysmal nocturnal dyspnea, Denies syncope Respiratory: Reports as per HPI Gastrointestinal: Reports loss of appetite, Denies abdominal pain, Denies constipation, Denies diarrhea, Denies nausea, Denies vomiting Genitourinary: Denies dysuria Musculoskeletal: Denies limitation of motion Integumentary: Denies rash Neurological: Denies seizures, Denies syncope Psychiatric: Denies anxiety, Denies depression Past Medical History Past Medical History: Coronary Artery Disease (CAD), COPD, GERD/Reflux, Hyperlipidemia, Hypertension, Myocardial Infarction ([place]), Pulmonary Embolus ([place]), Renal Disease Additional Past Medical History / Comment(s): Home oxygen prn and pt states he usually wears at night at 2.5 liters, bilateral PEs in 2003, ETOH abuse-pt sta hoang he has never had withdrawal symptoms, chronic low back pain/sciatica/spurs/disc disease much improved after back injections, past urinary retention, diverticulitis/benign colon polyps removed, nephrolithiasis- passed stones on his own, shingelles 16 years ago-R shoulder. Last Myocardial Infarction Date:: 2010 History of Any Multi-Drug Resistant Organisms: None Reported Past Surgical History: Heart Catheterization With Stent Additional Past Surgical History / Comment(s): Back injections for pain, piece of metal removed from rt eye, EGD, colonoscopy Past Anesthesia/Blood Transfusion Reactions: No Reported Reaction Additional Past Anesthesia/Blood Transfusion Reaction / Comment(s): claustrophobia Date of Last Stent Placement:: 2010 Past Psychological History: Anxiety, Depression, PTSD Additional Psychological History / Comment(s): Pt states he now lives alone, sp ouse and children are Smoking Status: Former smoker Past Alcohol Use History: None Reported Additional Past Alcohol Use History / Comment(s): Pt started smoking in 1965 and quit in 2015. Past Drug Use History: None Reported - Past Family History Mother Family Medical History: Cancer Additional Family Medical History / Comment(s): from breast cancer at age 53 Father Family Medical History: Coronary Artery Disease (CAD), Myocardial Infarction ([place]) Additional Family Medical History / Comment(s): 4 mi's/CABG. at at age 72 Medications and Allergies Home Medications Medication Instructions Recorded Confirmed Type Aspirin EC [Ecotrin Low Dose] 81 mg PO DAILY 06/22/18 04/16/24 History Budesonide/Formoterol Fumarate 2 puff INHALATION RT-BID 06/22/18 04/16/24 History [Symbicort 160-4.5 Mcg Inhaler] Ipratropium/Albuterol Sulfate 1 puff INHALATION RT-QID 06/22/18 04/16/24 History [Combivent Respimat Inhaler] Metoprolol Tartrate [Lopressor] 25 mg PO BID 06/22/18 04/16/24 History Spironolactone 25 mg PO DAILY 06/22/18 04/16/24 History lisinopriL [Zestril] 2.5 mg PO HS 06/22/18 04/16/24 History Clopidogrel Bisulfate [Plavix] 75 mg PO DAILY 07/01/18 04/16/24 History Albuterol Inhaler [Ventolin Hfa 2 puff INHALATION RT-Q6H PRN 12/07/19 04/16/24 History Inhaler] Albuterol Nebulized [Ventolin 2.5 mg INHALATION RT-QID 12/07/19 04/16/24 History Nebulized] Loratadine [Claritin] 10 mg PO DAILY 12/07/19 04/16/24 History Simvastatin [Zocor] 40 mg PO HS 12/07/19 04/16/24 History Tiotropium 18 Mcg/Puff [Spiriva] 2 puff INHALATION RT-DAILY 12/07/19 04/16/24 History Cholecalciferol [Vitamin D3 (25 25 mcg PO BID 03/17/24 04/16/24 History Mcg = 1000 Iu)] Ferrous Sulfate [Iron (65 MG 325 mg PO W/LUNCH 04/06/24 04/16/24 History Elemental)] Folic Acid 1 mg PO DAILY 04/06/24 04/16/24 History Gabapentin [Neurontin] 100 mg PO BID 04/06/24 04/16/24 History Pantoprazole [Protonix] 40 mg PO W/BRKFST 04/06/24 04/16/24 History Vitamin B-12 50mcg 50 mcg PO DAILY 04/06/24 04/16/24 History metFORMIN HCL 500 mg PO BID-W/MEALS 04/06/24 04/16/24 History Furosemide [Lasix] 20 mg PO DIRECTED 04/16/24 04/16/24 History predniSONE [Deltasone] See Taper PO DIRECTED #25 tab 04/18/24 Rx Allergies Allergy/AdvReac Type Severity Reaction Status Date / Time fluticasone AdvReac Nausea Verified 04/25/24 15:53 [From Wixela Inhub] levofloxacin [From Levaquin] AdvReac TENDON PAIN Verified 04/25/24 15:53 salmeterol AdvReac Nausea Verified 04/25/24 15:53 [From Wixela Inhub] Physical Exam Vitals: Vital Signs Temp Pulse Pulse Resp BP BP Pulse Ox 04/26/24 01:02 97.3 F L 78 17 130/76 97 04/26/24 00:11 85 04/26/24 00:10 63 18 114/67 99 04/25/24 23:41 80 04/25/24 23:18 75 20 102/67 100 04/25/24 20:28 70 16 112/74 95 04/25/24 15:53 81 L 04/25/24 15:51 97.6 F 69 18 106/65 Intake and Output 04/25/24 04/25/24 04/26/24 14:59 22:59 06:59 Other: Voiding Method Toilet Weight 116.573 kg 116.573 kg GENERAL EXAM: Alert, 78-year-old male, laying on his left side, comfortable in no apparent distress. HEAD: Normocephalic and atraumatic EYES: Normal reaction of pupils, equal size. NOSE: Clear with pink turbinates. THROAT: No erythema or exudates. NECK: No masses, no JVD. CHEST: No chest wall deformity. LUNGS: Equal air entry with faint expiratory wheezing heard bilaterally throughout. On 2 L/min nasal cannula. No conversational dyspnea or accessory muscle use while at rest CVS: S1 and S2 normal with no audible murmur, regular rhythm. No extra heart sounds ABDOMEN: No hepatosplenomegaly, active bowel sounds, no guarding or rigidity. SPINE: No scoliosis or deformity SKIN: No rashes CENTRAL NERVOUS SYSTEM: No focal deficits, tone is normal in all 4 extremities. EXTREMITIES: There is mild bilateral lower extremity nonpitting edema. No clubbing, or cyanosis. Peripheral pulses are intact. Results - Laboratory Findings CBC and BMP: 04/25/24 17:36 04/25/24 17:36 PT/INR, D-dimer PT 10.4 sec (10.0-12.5) 04/25/24 17:36 INR 0.9 (<1.2) 04/25/24 17:36 Abnormal lab findings: Abnormal Labs 04/25/24 04/25/24 04/25/24 17:36 17:36 17:36 WBC 15.3 H Neutrophils # 12.6 H Monocytes # 1.1 H APTT 19.2 L Sodium 130 L Chloride 90 L Carbon Dioxide 33 H BUN 40 H Glucose 126 H - Diagnostic Findings Chest x-ray: image reviewed Assessment and Plan Assessment: Acute COPD exacerbation; chest x-ray does not show any acute cardiopulmonary process, including focal infiltrates or evidence of pneumonia. Viral screen negative for influenza, RSV, COVID. This is his third hospitalization for the same, this month; recently discharged on April 18, reports that he did not clam picker his steroid taper on discharge. Acute on top of chronic hypoxemic respiratory failure, secondary to above Acute leukocytosis, possibly reactive to steroids that he received during his recent hospitalization Recent hospitalization for acute COVID infection History of heart failure, with unknown ejection fraction History of hyperlipidemia History of hypertension History of CAD History of peripheral arterial disease Very severe chronic obstructive pulmonary disease, with an FEV1 29% of predicted, normally maintained on a combination of Breyna, Spiriva, albuterol nebs [id number] Chronic hypoxemic respiratory failure, secondary to above, normally oxygen dependent on 2-3 L/min nasal cannula mostly at bedtime Former tobacco dependence, quit smoking over 15 years ago Obesity, with a BMI of 40.3 kg/m Plan: Patient's medications, labs, chest x-ray reviewed Currently on 3 L/min nasal cannula; may wean to maintain SPO2 90% or greater Start patient on bronchodilators, Symbicort inhaler, and high-dose IV Solu- Medrol Continue empiric azithromycin GI prophylaxis: Protonix DVT prophylaxis: Lovenox We will continue to follow, additional recommendations forthcoming I have personally seen and examined the patient, performed the documentation and the assessment and plan as written. Number of minutes spent on the visit:20 This dictation was produced using [employer] dictation software please excuse grammatical errors Time with Patient: Greater than 30
[2024-04-26 06:47] LABS: Glucose,Whole Blood 196 mg/dL (70-110)
[2024-04-26] MEDS: INSULIN ASPART (NovoLOG) 100 UNIT/ML VIAL SQ SCH (06:56)
[2024-04-26] MEDS ORDERED: AZITHROMYCIN 500 MG TAB PO SCH (09:00)
[2024-04-26] MEDS: ENOXAPARIN 40 MG/0.4 ML SYRINGE SQ SCH (09:03)
[2024-04-26 09:21] LABS: Basophils % (A) 0 %; Eosinophils % (A) 0 %; HCT 40.8 % (39.0-53.0); HGB 13.9 gm/dL (13.0-17.5); Lymphocytes # (A) 0.4 k/uL (1.0-4.8); Lymphocytes % (A) 4 %; MCH 28.7 pg (25.0-35.0); MCHC 34.1 g/dL (31.0-37.0); MCV 84.2 fL (80.0-100.0); Mean Platelet Volume 7.7; Monocytes # (A) 0.3 k/uL (0-1.0); Monocytes % (A) 2 %; Neutrophils # (A) 10.3 k/uL (1.3-7.7); Neutrophils % (A) 94 %; Platelet Count 206 k/uL (150-450); RBC 4.85 m/uL (4.30-5.90); RDW 14.8 % (11.5-15.5)
[2024-04-26 09:34] LABS: African American GFR (CKD) 89 (>60 ml/min/1.73 sqM); Anion Gap 10 mmol/L; Blood Urea Nitrogen 35 mg/dL (9-20); Calcium 8.8 mg/dL (8.4-10.2); Carbon Dioxide 30 mmol/L (22-30); Chloride 90 mmol/L (98-107); Glucose 174 mg/dL (74-99); Non-African American GFR(CKD) 77 (>60 ml/min/1.73 sqM); Potassium 4.6 mmol/L (3.5-5.1); Sodium 130 mmol/L (137-145)
[2024-04-26] MEDS: IPRATROPIUM-ALBUTEROL 3 ML NEB INHALATION SCH (09:41)
[2024-04-26] MEDS: SYMBICORT 160-4.5 MCG INHALER INHALATION SCH (09:42)
[2024-04-26 11:30] LABS: Glucose,Whole Blood 171 mg/dL (70-110)
--- NOTE | 2024-04-26 14:26 | P.PN ---
Subjective Progress Note Date: 04/26/24 Hospital Course: A 78-year-old male with PMH of chronic hypoxic respiratory failure secondary to COPD on home oxygen, HTN, HLD, PAD, heart failure, recent COVID infection discharged on 04/18, who was discharged with prednisone taper that he did not hop picker from the pharmacy and eventually came back to the ER with worsening SOB. Chest x-ray showed no acute process, he was screened for COVID influenza and RSV, negative. Lab work was significant for leukocytosis likely from recent steroid use, hyponatremia 130, normal creatinine, proBNP 567, Patient was admitted for management of acute COPD exacerbation, started on IV Solu-Medrol, inhalers, empiric azithromycin, pulmonology consulted. Pertinent Imaging: Chest x-ray with no acute process Subjective: Seen examined at bedside, he is SOB is improved Pertinent positives and negatives as discussed above, a complete review of systems was performed and all other systems are negative. Vitals Signs Reviewed. General: [nontoxic], [no distress], [appears at stated age], obese Derm: [warm], [dry] Head: [atraumatic], [normocephalic], [symmetric] Eyes: [EOMI], [no lid lag], [anicteric sclera] Mouth: [no lip lesion], [mucus membranes moist] Cardiovascular: [S1S2 reg], [no murmur] Lungs: Diffuse expiratory wheezes still present on exam Abdominal: [soft], [ nontender to palpation], [no guarding], [no appreciable organomegaly] Ext: [no gross muscle atrophy], [no edema], [no contractures] Neuro: [ CN II-XI grossly intact], [no focal neuro deficits] Psych: [Alert], [oriented], [appropriate affect] Data Reviewed Today: Pertinent Labs: Leukocytosis improving 11.0 today, hemoglobin normal and stable, sodium 130, blood glucose is fairly controlled, creatinine normal. Assessment and Plan: Acute on chronic hypoxic respiratory failure secondary to acute COPD exacerbation Leukocytosis, likely steroid-induced -Continue with Solu-Medrol 60 every 6 -Continue inhalers -Pulmonology following -Continue azithromycin -Continue supplemental oxygen Acute hyponatremia -Corrected sodium 131 -Monitor BMP Chronic diastolic CHF not in exacerbation: Continue Lasix, spironolactone Type II DM HTN HLD CAD: Continue aspirin and clopidogrel, continue metoprolol, continue simvastatin DVT ppx: Lovenox Anticipated discharge place: Home with home care Anticipated discharge time: 24 to 48 hours Objective - Vital Signs Vital signs: Vital Signs Temp 97.5 F L 04/26/24 13:20 Pulse 91 04/26/24 13:20 Resp 16 04/26/24 13:20 BP 131/74 04/26/24 13:20 Pulse Ox 99 04/26/24 13:20 FiO2 Intake & Output 04/25/24 04/26/24 04/26/24 18:59 06:59 18:59 Intake Total 250 Balance 250 Weight 116.573 kg 116.573 kg Intake: Intake, IV Titration 250 Amount Azithromycin 500 mg In 250 Sodium Chloride 0.9% 250 ml @ 250 mls/hr IVPB ONCE STA Rx#:[id number] Other: Voiding Method Toilet # Voids 1 - Labs CBC & Chem 7: 04/26/24 08:55 04/26/24 08:55 Labs: Abnormal Lab Results - Last 24 Hours (Table) 04/25/24 04/25/24 04/25/24 Range/Units 17:36 17:36 17:36 WBC 15.3 H (3.8-10.6) k/uL Neutrophils # 12.6 H (1.3-7.7) k/uL Lymphocytes # (1.0-4.8) k/uL Monocytes # 1.1 H (0-1.0) k/uL APTT 19.2 L (22.0-30.0) sec Sodium 130 L (137-145) mmol/L Chloride 90 L (98-107) mmol/L Carbon Dioxide 33 H (22-30) mmol/L BUN 40 H (9-20) mg/dL Glucose 126 H (74-99) mg/dL POC Glucose (mg/dL) (70-110) mg/dL 04/26/24 04/26/24 04/26/24 Range/Units 06:45 08:55 08:55 WBC 11.0 H (3.8-10.6) k/uL Neutrophils # 10.3 H (1.3-7.7) k/uL Lymphocytes # 0.4 L (1.0-4.8) k/uL Monocytes # (0-1.0) k/uL APTT (22.0-30.0) sec Sodium 130 L (137-145) mmol/L Chloride 90 L (98-107) mmol/L Carbon Dioxide (22-30) mmol/L BUN 35 H (9-20) mg/dL Glucose 174 H (74-99) mg/dL POC Glucose (mg/dL) 196 H (70-110) mg/dL 04/26/24 Range/Units 11:28 WBC (3.8-10.6) k/uL Neutrophils # (1.3-7.7) k/uL Lymphocytes # (1.0-4.8) k/uL Monocytes # (0-1.0) k/uL APTT (22.0-30.0) sec Sodium (137-145) mmol/L Chloride (98-107) mmol/L Carbon Dioxide (22-30) mmol/L BUN (9-20) mg/dL Glucose (74-99) mg/dL POC Glucose (mg/dL) 171 H (70-110) mg/dL
[2024-04-26] MEDS: FUROSEMIDE 20 MG TAB PO SCH (15:13)
[2024-04-26] MEDS: SPIRONOLACTONE 25 MG TAB PO SCH (15:13)
[2024-04-26 16:50] LABS: Glucose,Whole Blood 175 mg/dL (70-110)
[2024-04-26 20:36] LABS: Glucose,Whole Blood 179 mg/dL (70-110)
[2024-04-26] MEDS: ATORVASTATIN 20 MG TAB PO SCH (21:43)
[2024-04-26] MEDS: CHOLECALCIFEROL 25 MCG (1000 IU) TABLET PO SCH (21:43)
[2024-04-26] MEDS: METOPROLOL TARTRATE 25 MG TAB PO SCH (21:43)
[2024-04-26] MEDS: AZITHROMYCIN 500 MG TAB PO SCH (21:55)
[2024-04-27 06:25] LABS: Glucose,Whole Blood 147 mg/dL (70-110)
[2024-04-27] MEDS: CYANOCOBALAMIN 500 MCG TAB PO SCH (08:32)
[2024-04-27] MEDS: LORATADINE 10 MG TAB PO SCH (08:32)
[2024-04-27] MEDS: CLOPIDOGREL 75 MG TAB PO SCH (08:32)
[2024-04-27] MEDS: ASPIRIN 81 MG PO SCH (08:32)
[2024-04-27] MEDS: FOLIC ACID 1 MG TAB PO SCH (08:33)
[2024-04-27 09:07] LABS: Basophils # (A) 0.02 X 10*3/uL (0.00-0.10); Basophils % (A) 0.2 %; Eosinophils # (A) 0 X 10*3/uL (0.04-0.35); Eosinophils % (A) 0 %; HCT 38.4 % (39.6-50.0); HGB 12.8 g/dL (13.0-17.0); Lymphocytes # (A) 0.51 X 10*3/uL (0.90-5.00); Lymphocytes % (A) 4.5 %; MCH 27.8 pg (27.0-32.0); MCHC 33.3 g/dL (32.0-37.0); MCV 83.3 FL (80.0-97.0); Mean Platelet Volume 10.5 FL (9.5-12.2); Monocytes # (A) 0.29 X 10*3/uL (0.20-1.00); Monocytes % (A) 2.5 %; NRBC Per 100 WBC 0 X 10*3/uL (0.00-0.01); Neutrophils # (A) 10.32 X 10*3/uL (1.80-7.70); Neutrophils % (A) 90.3 %; Platelet Count 219 X 10*3/uL (140-440); RBC 4.61 X 10*6/uL (4.40-5.60); RDW 14.8 % (11.5-14.5); WBC 11.42 X 10*3/uL (4.50-10.00)
[2024-04-27 09:35] LABS: BUN/Creat Ratio 24.82 Ratio (12.00-20.00); Blood Urea Nitrogen 27.3 mg/dL (9.0-27.0); Glucose 159 mg/dL (70-110)
[2024-04-27 09:36] LABS: Calcium 8.5 mg/dL (8.7-10.3); Carbon Dioxide 28.2 mmol/L (21.6-31.8); Chloride 92 mmol/L (96-109); Potassium 4.4 mmol/L (3.5-5.5); Sodium 131 mmol/L (135-145)
[2024-04-27] MEDS: LOPERAMIDE 2 MG CAP PO STA (11:23)
[2024-04-27] MEDS: FERROUS SULFATE 325 MG TAB PO SCH (11:23)
[2024-04-27 11:24] LABS: Glucose,Whole Blood 148 mg/dL (70-110)
[2024-04-27] MEDS: ALPRAZolam 0.5 MG TAB PO PRN (13:10)
--- NOTE | 2024-04-27 13:52 | P.PN ---
Subjective Progress Note Date: 04/27/24 Patient is a 78-year-old male with past medical history significant for COPD, chronic oxygen dependence, hypertension, hyperlipidemia, PAD, heart failure, among other things. Patient follows in the pulmonary office with Dr. Vargas, for management of his very severe COPD. He has missed his follow up appointment. He has an FEV1 from 29% of predicted. Normally, maintained on oxygen 3 L/min nasal cannula at night. He utilizes a combination of Breyna, Spiriva, and albuterol nebs [id number]. Of note, this is the patient's third hospitalization this month for acute COPD exacerbation. Most recently admitted 04/11 through 04/18 with acute COVID infection and COPD exacerbation. Patient was eventually discharged home with prednisone taper, which he reportedly did not pear picker from the pharmacy. Patient returns to the emergency department yesterday afternoon complaining of progressively worsening shortness of breath since his hospital discharge. Endorses chest tightness and wheezing. Has a intermittently productive cough with occasional yellow sputum production. Denies any fevers, chills, chest pain, hemoptysis. Admits poor appetite. Denies nausea, vomting, diarrhea. Chest x-ray does not show any significant cardiopulmonary process. No focal infiltrates concerning for pneumonia. He was given dose of azithromycin and Rocephin in the ED. Viral screen now negative for COVID, influenza, RSV. CBC remarkable for leukocytosis with a WBC count of 15.3, possibly secondary to steroid use. CMP: Sodium 130, potassium 4.3, chloride 90, serum bicarb 33, BUN 40, creatinine 1.09, glucose 126. Troponin 0.02. NT proBNP 567. EKG: Normal sinus rhythm, rate 84 bpm, mild diffuse ST depressions. Current vitals: Temperature 97.3 F, SpO2 is 97% on 2 to 3 L nasal cannula, nontachypneic, heart rate 70 bpm, blood pressure 130/76 mmHg. The patient is seen today April 27, 2024 in follow-up on the regular medical floor. He is currently sitting up at the bedside. Awake and alert in no acute distress. Maintaining O2 saturations in the 90s on 3 L/min per nasal cannula. No IV fluids. Lung sounds are clear. He has been afebrile. Hemodynamically stable. Blood cultures revealed no growth. White count 11.4. Hemoglobin 12.8. Platelets 219. Sodium 131. Potassium 4.4. Bicarb 28. BUN 27. Creatinine 1.1. Glucose 159. He is continued on DuoNeb inhalations, Symbicort, Solu-Me drol. He remains on oral diuretics. Lovenox for DVT prophylaxis. Objective - Vital Signs Vital signs: Vital Signs Temp 97.9 F 04/27/24 12:38 Pulse 68 04/27/24 12:38 Resp 18 04/27/24 12:38 BP 106/59 04/27/24 12:38 Pulse Ox 94 L 04/27/24 12:38 FiO2 Intake & Output 04/26/24 04/27/24 04/27/24 18:59 06:59 18:59 Intake Total 0 Balance 1859 Intake: Oral 1859 Other: Voiding Method Toilet # Voids 3 3 # Bowel Movements 1 - Exam GENERAL EXAM: Alert, 78-year-old male, sitting up at the bedside, on 3 L nasal cannula, comfortable in no apparent distress. HEAD: Normocephalic and atraumatic EYES: Normal reaction of pupils, equal size. NOSE: Clear with pink turbinates. THROAT: No erythema or exudates. NECK: No masses, no JVD. CHEST: No chest wall deformity. LUNGS: Equal air entry with faint expiratory wheezing heard bilaterally throughout. CVS: S1 and S2 normal with no audible murmur, regular rhythm. No extra heart s ounds ABDOMEN: No hepatosplenomegaly, active bowel sounds, no guarding or rigidity. SPINE: No scoliosis or deformity SKIN: No rashes CENTRAL NERVOUS SYSTEM: No focal deficits, tone is normal in all 4 extremities. EXTREMITIES: There is mild bilateral lower extremity nonpitting edema. No clubbing, or cyanosis. Peripheral pulses are intact. - Labs CBC & Chem 7: 04/27/24 03:40 04/27/24 03:40 Labs: Abnormal Lab Results - Last 24 Hours (Table) 04/26/24 04/26/24 04/27/24 Range/Units 16:49 20:35 03:40 WBC 11.42 H (4.50-10.00) X 10*3/uL Hgb 12.8 L (13.0-17.0) g/dL Hct 38.4 L (39.6-50.0) % RDW 14.8 H (11.5-14.5) % Immature Gran # 0.28 H (0.00-0.04) X 10*3/uL Neutrophils # 10.32 H (1.80-7.70) X 10*3/uL Lymphocytes # 0.51 L (0.90-5.00) X 10*3/uL Eosinophils # 0 L (0.04-0.35) X 10*3/uL Sodium (135-145) mmol/L Chloride (96-109) mmol/L BUN (9.0-27.0) mg/dL BUN/Creatinine Ratio (12.00-20.00) Ratio Glucose (70-110) mg/dL POC Glucose (mg/dL) 175 H 179 H (70-110) mg/dL Calcium (8.7-10.3) mg/dL 04/27/24 04/27/24 04/27/24 Range/Units 03:40 06:24 11:24 WBC (4.50-10.00) X 10*3/uL Hgb (13.0-17.0) g/dL Hct (39.6-50.0) % RDW (11.5-14.5) % Immature Gran # (0.00-0.04) X 10*3/uL Neutrophils # (1.80-7.70) X 10*3/uL Lymphocytes # (0.90-5.00) X 10*3/uL Eosinophils # (0.04-0.35) X 10*3/uL Sodium 131 L (135-145) mmol/L Chloride 92 L (96-109) mmol/L BUN 27.3 H (9.0-27.0) mg/dL BUN/Creatinine Ratio 24.82 H (12.00-20.00) Ratio Glucose 159 H (70-110) mg/dL POC Glucose (mg/dL) 147 H 148 H (70-110) mg/dL Calcium 8.5 L (8.7-10.3) mg/dL Microbiology - Last 24 Hours (Table) 04/25/24 22:44 Blood Culture - Preliminary Blood Assessment and Plan Assessment: Acute COPD exacerbation; chest x-ray does not show any acute cardiopulmonary pr ocess, including focal infiltrates or evidence of pneumonia. Viral screen negative for influenza, RSV, COVID. This is his third hospitalization for the same, this month; recently discharged on April 18, reports that he did not pear picker his steroid taper on discharge Acute on top of chronic hypoxemic respiratory failure, secondary to above Acute leukocytosis, possibly reactive to steroids that he received during his recent hospitalization Recent hospitalization for acute COVID infection History of heart failure, with unknown ejection fraction History of hyperlipidemia History of hypertension History of CAD History of peripheral arterial disease Very severe chronic obstructive pulmonary disease, with an FEV1 29% of predicted, normally maintained on a combination of Breyna, Spiriva, albuterol nebs [id number] Chronic hypoxemic respiratory failure, secondary to above, normally oxygen dependent on 2-3 L/min nasal cannula mostly at bedtime Former tobacco dependence, quit smoking over 15 years ago Obesity, with a BMI of 40.3 kg/m Plan: The patient was seen and evaluated Labs and medications reviewed Cleared for discharge from the pulmonary standpoint Complete a prednisone taper Continue his home oxygen, pulmonary medications Educated regarding medication compliance To follow-up in our office in 1 week I have personally seen and examined the patient, performed the documentation and the assessment and plan as written. Number of minutes spent on the visit: 10 Dictation was produced using [employer] dictation software. Please excuse any grammatical, word or spelling errors. This patient was seen in coordination with the pulmonary/critical care physician, Dr. Goddard. He did spend greater than 50% of the time evaluating, examining and developing the plan of care. He agrees to the above HPI, physical exam, assessment and plan of care as dictated by the nurse practitioner.
--- NOTE | 2024-04-27 14:18 | P.PN ---
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 Chest x-ray showed no acute process, he was screened for COVID influenza and RSV, negative. Lab work was significant for leukocytosis likely from recent steroid use, hyponatremia 130, normal creatinine, proBNP 567, Patient was admitted for management of acute COPD exacerbation, started on IV Solu-Medrol, inhalers, empiric azithromycin, pulmonology consulte PT OT, case management consulted, patient would prefer to go to rehab Subjective: [Patient feels overall better today, shortness of breath present, especially with activity, less wheezy Pertinent positives and negatives as discussed above, a complete review of systems was performed and all other systems are negative. Vitals Signs Reviewed. General: [Niccoli ill-appearing Derm: [warm], [dry] Head: [atraumatic], [normocephalic], [symmetric] Eyes: [EOMI], [no lid lag], [anicteric sclera] Mouth: [no lip lesion], [mucus membranes moist] Cardiovascular: [S1S2 reg], [no murmur] Lungs: Bilateral air entry, no wheezes today Abdominal: [soft], [ nontender to palpation], [no guarding], [no appreciable organomegaly] Ext lateral pitting lower extremity edema Neuro: [ CN II-XI grossly intact], [no focal neuro deficits] Psych: [Alert], [oriented], [appropriate affect] Data Reviewed Today: Pertinent Labs: Leukocytosis stable 11.4, hemoglobin stable 12.8, platelet count normal, sodium 131, glucose is well-controlled, creatinine stable and normal. Assessment and Plan: Acute on chronic hypoxic respiratory failure secondary to acute COPD exacerbation Leukocytosis, likely steroid-induced -Continue with Solu-Medrol 60 every 8 -Continue inhalers -Pulmonology following, cleared for discharge, follow-up in 1 week, prednisone taper at discharge -PT OT consulted, patient now wants to go to rehab -Continue azithromycin -Continue supplemental oxygen Acute hyponatremia -Corrected sodium 131 -Monitor BMP Chronic diastolic CHF not in exacerbation: Continue Lasix, spironolactone Type II DM HTN HLD CAD: Continue aspirin and clopidogrel, continue metoprolol, continue simvastatin DVT ppx: Lovenox Anticipated discharge place: Home with home care Anticipated discharge time: 24 to 48 hours Objective - Vital Signs Vital signs: Vital Signs Temp 97.9 F 04/27/24 12:38 Pulse 68 04/27/24 12:38 Resp 18 04/27/24 12:38 BP 106/59 04/27/24 12:38 Pulse Ox 94 L 04/27/24 12:38 FiO2 Intake & Output 04/26/24 04/27/24 04/27/24 18:59 06:59 18:59 Intake Total 1860 Balance 1860 Intake: Oral 1860 Other: Voiding Method Toilet # Voids 3 3 # Bowel Movements 1 - Labs CBC & Chem 7: 04/27/24 03:40 04/27/24 03:40 Labs: Abnormal Lab Results - Last 24 Hours (Table) 04/26/24 04/26/24 04/27/24 Range/Units 16:49 20:35 03:40 WBC 11.42 H (4.50-10.00) X 10*3/uL Hgb 12.8 L (13.0-17.0) g/dL Hct 38.4 L (39.6-50.0) % RDW 14.8 H (11.5-14.5) % Immature Gran # 0.28 H (0.00-0.04) X 10*3/uL Neutrophils # 10.32 H (1.80-7.70) X 10*3/uL Lymphocytes # 0.51 L (0.90-5.00) X 10*3/uL Eosinophils # 0 L (0.04-0.35) X 10*3/uL Sodium (135-145) mmol/L Chloride (96-109) mmol/L BUN (9.0-27.0) mg/dL BUN/Creatinine Ratio (12.00-20.00) Ratio Glucose (70-110) mg/dL POC Glucose (mg/dL) 175 H 179 H (70-110) mg/dL Calcium (8.7-10.3) mg/dL 04/27/24 04/27/24 04/27/24 Range/Units 03:40 06:24 11:24 WBC (4.50-10.00) X 10*3/uL Hgb (13.0-17.0) g/dL Hct (39.6-50.0) % RDW (11.5-14.5) % Immature Gran # (0.00-0.04) X 10*3/uL Neutrophils # (1.80-7.70) X 10*3/uL Lymphocytes # (0.90-5.00) X 10*3/uL Eosinophils # (0.04-0.35) X 10*3/uL Sodium 131 L (135-145) mmol/L Chloride 92 L (96-109) mmol/L BUN 27.3 H (9.0-27.0) mg/dL BUN/Creatinine Ratio 24.82 H (12.00-20.00) Ratio Glucose 159 H (70-110) mg/dL POC Glucose (mg/dL) 147 H 148 H (70-110) mg/dL Calcium 8.5 L (8.7-10.3) mg/dL Microbiology - Last 24 Hours (Table) 04/25/24 22:44 Blood Culture - Preliminary Blood
[2024-04-27 16:27] LABS: Glucose,Whole Blood 196 mg/dL (70-110)
[2024-04-27] MEDS: methylPREDNISolone SOD SUCCI 125 MG/2 ML VIAL IV SCH (16:54)
[2024-04-27 20:48] LABS: Glucose,Whole Blood 237 mg/dL (70-110)
[2024-04-28 06:19] LABS: Glucose,Whole Blood 154 mg/dL (70-110)
[2024-04-28 11:36] LABS: Glucose,Whole Blood 136 mg/dL (70-110)
--- NOTE | 2024-04-28 13:49 | P.PN ---
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 Chest x-ray showed no acute process, he was screened for COVID influenza and RSV, negative. Lab work was significant for leukocytosis likely from recent steroid use, hyponatremia 130, normal creatinine, proBNP 567, Patient was admitted for management of acute COPD exacerbation, started on IV Solu-Medrol, inhalers, empiric azithromycin, pulmonology consulte PT OT recommended outpatient rehab, case management consulted, patient would prefer to go to rehab, [place] initiated 04/28 Subjective: Was seen and examined at bedside, feels better today, still complains of shortness of breath especially on exertion Pertinent positives and negatives as discussed above, a complete review of systems was performed and all other systems are negative. Vitals Signs Reviewed. General: [Niccoli ill-appearing Derm: [warm], [dry] Head: [atraumatic], [normocephalic], [symmetric] Eyes: [EOMI], [no lid lag], [anicteric sclera] Mouth: [no lip lesion], [mucus membranes moist] Cardiovascular: [S1S2 reg], [no murmur] Lungs: Bilateral air entry is poor, no wheezes today Abdominal: [soft], [ nontender to palpation], [no guarding], [no appreciable organomegaly] Ext lateral pitting lower extremity edema Neuro: [ CN II-XI grossly intact], [no focal neuro deficits] Psych: [Alert], [oriented], [appropriate affect] Data Reviewed Today: Pertinent Labs: [] Glucose is well-controlled Assessment and Plan: Acute on chronic hypoxic respiratory failure secondary to acute COPD exacerbation Leukocytosis, likely steroid-induced -Wean down Solu-Medrol to 40 twice daily -Continue inhalers -Pulmonology following, cleared for discharge, follow-up in 1 week, prednisone taper at discharge -Continue azithromycin -Continue supplemental oxygen -pending Placement Acute hyponatremia -Corrected sodium 131 -Monitor BMP Chronic diastolic CHF not in exacerbation: Continue Lasix, spironolactone Type II DM HTN HLD CAD: Continue aspirin and clopidogrel, continue metoprolol, continue simvastatin DVT ppx: Lovenox Anticipated discharge place: Subacute rehab[] Anticipated discharge time: Ending insurance authorization Objective - Vital Signs Vital signs: Vital Signs Temp 97.5 F L 04/28/24 00:37 Pulse 77 04/28/24 07:38 Resp 18 04/28/24 08:00 BP 145/62 04/28/24 07:38 Pulse Ox 99 04/28/24 07:38 FiO2 Intake & Output 04/27/24 04/28/24 04/28/24 18:59 06:59 18:59 Other: Voiding Method Toilet # Voids 3 2 - Labs CBC & Chem 7: 04/27/24 03:40 04/27/24 03:40 Labs: Abnormal Lab Results - Last 24 Hours (Table) 04/27/24 04/27/24 04/28/24 Range/Units 16:25 20:47 06:18 POC Glucose (mg/dL) 196 H 237 H 154 H (70-110) mg/dL 04/28/24 Range/Units 11:35 POC Glucose (mg/dL) 136 H (70-110) mg/dL Microbiology - Last 24 Hours (Table) 04/25/24 22:44 Blood Culture - Preliminary Blood
--- NOTE | 2024-04-28 14:04 | P.PN ---
Subjective Progress Note Date: 04/28/24 Patient is a 78-year-old male with past medical history significant for COPD, chronic oxygen dependence, hypertension, hyperlipidemia, PAD, heart failure, among other things. Patient follows in the pulmonary office with Dr. Vargas, for management of his very severe COPD. He has missed his follow up appointment. He has an FEV1 from 29% of predicted. Normally, maintained on oxygen 3 L/min nasal cannula at night. He utilizes a combination of Breyna, Spiriva, and albuterol nebs [id number]. Of note, this is the patient's third hospitalization this month for acute COPD exacerbation. Most recently admitted 04/11 through 04/18 with acute COVID infection and COPD exacerbation. Patient was eventually discharged home with prednisone taper, which he reportedly did not tile picker from the pharmacy. Patient returns to the emergency department yesterday afternoon complaining of progressively worsening shortness of breath since his hospital discharge. Endorses chest tightness and wheezing. Has a intermittently productive cough with occasional yellow sputum production. Denies any fevers, chills, chest pain, hemoptysis. Admits poor appetite. Denies nausea, vomting, diarrhea. Chest x-ray does not show any significant cardiopulmonary process. No focal infiltrates concerning for pneumonia. He was given dose of azithromycin and Rocephin in the ED. Viral screen now negative for COVID, influenza, RSV. CBC remarkable for leukocytosis with a WBC count of 15.3, possibly secondary to steroid use. CMP: Sodium 130, potassium 4.3, chloride 90, serum bicarb 33, BUN 40, creatinine 1.09, glucose 126. Troponin 0.02. NT proBNP 567. EKG: Normal sinus rhythm, rate 84 bpm, mild diffuse ST depressions. Current vitals: Temperature 97.3 F, SpO2 is 97% on 2 to 3 L nasal cannula, nontachypneic, heart rate 70 bpm, blood pressure 130/76 mmHg. The patient is seen today April 27, 2024 in follow-up on the regular medical floor. He is currently sitting up at the bedside. Awake and alert in no acute distress. Maintaining O2 saturations in the 90s on 3 L/min per nasal cannula. No IV fluids. Lung sounds are clear. He has been afebrile. Hemodynamically stable. Blood cultures revealed no growth. White count 11.4. Hemoglobin 12.8. Platelets 219. Sodium 131. Potassium 4.4. Bicarb 28. BUN 27. Creatinine 1.1. Glucose 159. He is continued on DuoNeb inhalations, Symbicort, Solu-Me drol. He remains on oral diuretics. Lovenox for DVT prophylaxis. The patient is seen today April 28, 2024 in follow-up on the regular medical floor. He is awake and alert in no acute distress. Sitting up at the bedside. Maintaining O2 saturations in the 90s on 3 L/min per nasal cannula. No IV fluids. Blood cultures revealed no growth. Blood glucose 136. He is continued on DuoNeb and elations, Symbicort, Solu-Medrol. Lovenox for DVT prophylaxis. Remains on oral diuretics. Objective - Vital Signs Vital signs: Vital Signs Temp 97.5 F L 04/28/24 00:37 Pulse 77 04/28/24 07:38 Resp 18 04/28/24 08:00 BP 145/62 04/28/24 07:38 Pulse Ox 99 04/28/24 07:38 FiO2 Intake & Output 04/27/24 04/28/24 04/28/24 18:59 06:59 18:59 Other: Voiding Method Toilet # Voids 3 2 - Exam GENERAL EXAM: Alert, 78-year-old male, on 3 L nasal cannula, comfortable in no apparent distress. HEAD: Normocephalic and atraumatic EYES: Normal reaction of pupils, equal size. NOSE: Clear with pink turbinates. THROAT: No erythema or exudates. NECK: No masses, no JVD. CHEST: No chest wall deformity. LUNGS: Equal air entry with faint expiratory wheezing heard bilaterally throughout. CVS: S1 and S2 normal with no audible murmur, regular rhythm. No extra heart sounds ABDOMEN: No hepatosplenomegaly, active bowel sounds, no guarding or rigidity. SPINE: No scoliosis or deformity SKIN: No rashes CENTRAL NERVOUS SYSTEM: No focal deficits, tone is normal in all 4 extremities. EXTREMITIES: There is mild bilateral lower extremity nonpitting edema. No clubbing, or cyanosis. Peripheral pulses are intact. - Labs CBC & Chem 7: 04/27/24 03:40 04/27/24 03:40 Labs: Abnormal Lab Results - Last 24 Hours (Table) 04/27/24 04/27/24 04/28/24 Range/Units 16:25 20:47 06:18 POC Glucose (mg/dL) 196 H 237 H 154 H (70-110) mg/dL 04/28/24 Range/Units 11:35 POC Glucose (mg/dL) 136 H (70-110) mg/dL Microbiology - Last 24 Hours (Table) 04/25/24 22:44 Blood Culture - Preliminary Blood Assessment and Plan Assessment: Acute COPD exacerbation; chest x-ray does not show any acute cardiopulmonary process, including focal infiltrates or evidence of pneumonia. Viral screen negative for influenza, RSV, COVID. This is his third hospitalization for the same, this month; recently discharged on April 18, reports that he did not tile picker his steroid taper on discharge Acute on top of chronic hypoxemic respiratory failure, secondary to above Acute leukocytosis, possibly reactive to steroids that he received during his recent hospitalization Recent hospitalization for acute COVID infection History of heart failure, with unknown ejection fraction History of hyperlipidemia History of hypertension History of CAD History of peripheral arterial disease Very severe chronic obstructive pulmonary disease, with an FEV1 29% of predicted, normally maintained on a combination of Breyna, Spiriva, albuterol nebs [id number] Chronic hypoxemic respiratory failure, secondary to above, normally oxygen dependent on 2-3 L/min nasal cannula mostly at bedtime Former tobacco dependence, quit smoking over 15 years ago Obesity, with a BMI of 40.3 kg/m Plan: The patient was seen and evaluated Labs and medications reviewed Cleared for discharge Complete a prednisone taper Continue his home oxygen, pulmonary medications Educated regarding medication compliance The patient now agreeable to subacute rehabilitation, plan is for [facility] I have personally seen and examined the patient, performed the documentation and the assessment and plan as written. Number of minutes spent on the visit: 10 Dictation was produced using [employer] dictation software. Please excuse any grammatical, word or spelling errors. This patient was seen in coordination with the pulmonary/critical care physician, Dr. Goddard. He did spend greater than 50% of the time evaluating, examining and developing the plan of care. He agrees to the above HPI, physical exam, assessment and plan of care as dictated by the nurse practitioner.
--- NOTE | 2024-04-28 14:19 | P.DS ---
Providers Date of admission: 04/25/24 22:08 Attending physician: Caesar Linares MD Consults: 04/26/24 02:12 Consult Physician Urgent Consulting Provider: Mindy Vargas Consult Reason/Comments: copd Do you want consulting provider notified?: Yes Primary care physician: [facility] Hospital Course: Discharge Diagnosis: Acute on chronic hypoxic respiratory failure secondary to acute COPD ex acerbation Leukocytosis, likely steroid-induced Acute hyponatremia Chronic diastolic CHF not in exacerbation Type II DM HTN HLD CAD Hospital Course: A 78-year-old male with PMH of chronic hypoxic respiratory failure secondary to COPD on home oxygen, HTN, HLD, PAD, heart failure, recent COVID infection discharged on 04/18, who was discharged with prednisone taper that he did not picker/puller from the pharmacy and eventually came back to the ER with worsening SOB. Chest x-ray showed no acute process, he was screened for COVID influenza and RSV, negative. Lab work was significant for leukocytosis likely from recent steroid use, hyponatremia 130, normal creatinine, proBNP 567, Patient was admitted for management of acute COPD exacerbation, started on IV Solu-Medrol, inhalers, empiric azithromycin, pulmonology consulte PT OT recommended outpatient rehab, case management consulted, patient would prefer to go to rehab, accepted to [facility] Prognosis is guarded Patient will be discharged home prednisone taper Patient seen and examined at bedside. General: [Niccoli ill-appearing Derm: [warm], [dry] Head: [atraumatic], [normocephalic], [symmetric] Eyes: [EOMI], [no lid lag], [anicteric sclera] Mouth: [no lip lesion], [mucus membranes moist] Cardiovascular: [S1S2 reg], [no murmur] Lungs: Bilateral air entry is poor, no wheezes today Abdominal: [soft], [ nontender to palpation], [no guarding], [no appreciable organomegaly] Ext lateral pitting lower extremity edema Neuro: [ CN II-XI grossly intact], [no focal neuro deficits] Psych: [Alert], [oriented], [appropriate affect] A total of 40 minutes of time were spent preparing this complex discharge summary. Patient was discharged on 04/28/2024. Patient Condition at Discharge: Stable Plan - Discharge Summary Discharge Rx Participant: Yes New Discharge Prescriptions: No Action Aspirin EC [Ecotrin Low Dose] 81 mg PO DAILY Budesonide/Formoterol Fumarate [Symbicort 160-4.5 Mcg Inhaler] 2 puff INHALATION RT-BID Ipratropium/Albuterol Sulfate [Combivent Respimat Inhaler] 1 puff INHALATION RT-QID lisinopriL [Zestril] 2.5 mg PO HS Metoprolol Tartrate [Lopressor] 25 mg PO BID Spironolactone 25 mg PO DAILY Clopidogrel Bisulfate [Plavix] 75 mg PO DAILY Tiotropium 18 Mcg/Puff [Spiriva] 2 puff INHALATION RT-DAILY Simvastatin [Zocor] 40 mg PO HS Albuterol Nebulized [Ventolin Nebulized] 2.5 mg INHALATION RT-QID Loratadine [Claritin] 10 mg PO DAILY Albuterol Inhaler [Ventolin Hfa Inhaler] 2 puff INHALATION RT-TID PRN PRN Reason: Shortness Of Breath Cholecalciferol [Vitamin D3 (25 Mcg = 1000 Iu)] 25 mcg PO BID Furosemide [Lasix] 20 mg PO DIRECTED predniSONE [Deltasone] See Taper PO DIRECTED #25 tab Ferrous Sulfate [Iron (65 MG Elemental)] 325 mg PO W/LUNCH Folic Acid 1 mg PO DAILY Vitamin B-12 50mcg 50 mcg PO DAILY Discharge Medication List Aspirin EC [Ecotrin Low Dose] 81 mg PO DAILY 06/22/18 [History] Budesonide/Formoterol Fumarate [Symbicort 160-4.5 Mcg Inhaler] 2 puff INHALATION RT-BID 06/22/18 [History] Ipratropium/Albuterol Sulfate [Combivent Respimat Inhaler] 1 puff INHALATION RT- QID 06/22/18 [History] Metoprolol Tartrate [Lopressor] 25 mg PO BID 06/22/18 [History] Spironolactone 25 mg PO DAILY 06/22/18 [History] lisinopriL [Zestril] 2.5 mg PO HS 06/22/18 [History] Clopidogrel Bisulfate [Plavix] 75 mg PO DAILY 07/01/18 [History] Albuterol Inhaler [Ventolin Hfa Inhaler] 2 puff INHALATION RT-TID PRN 12/07/19 [History] Albuterol Nebulized [Ventolin Nebulized] 2.5 mg INHALATION RT-QID 12/07/19 [History] Loratadine [Claritin] 10 mg PO DAILY 12/07/19 [History] Simvastatin [Zocor] 40 mg PO HS 12/07/19 [History] Tiotropium 18 Mcg/Puff [Spiriva] 2 puff INHALATION RT-DAILY 12/07/19 [History] Cholecalciferol [Vitamin D3 (25 Mcg = 1000 Iu)] 25 mcg PO BID 03/17/24 [History] Ferrous Sulfate [Iron (65 MG Elemental)] 325 mg PO W/LUNCH 04/06/24 [History] Folic Acid 1 mg PO DAILY 04/06/24 [History] Vitamin B-12 50mcg 50 mcg PO DAILY 04/06/24 [History] Furosemide [Lasix] 20 mg PO DIRECTED 04/16/24 [History] predniSONE [Deltasone] See Taper PO DIRECTED #25 tab 04/18/24 [Rx] Follow up Appointment(s)/Referral(s): [facility] [NON-STAFF] - As Needed ([facility] will call you to resume your home care services at discharge.) Jackson Damon MD [STAFF PHYSICIAN] - 1-2 days Activity/Diet/Wound Care/Special Instructions: *Discharging RN - please make sure patient's meds are delivered to the bedside prior to discharge and patient will need indigent funds for them (form in chart)
[2024-04-28 14:25] VITALS: BP 119/71; RESP 19; TEMP 97.8
[2024-04-28 15:44] VITALS: PULSE 82
[2024-04-28] MEDS ORDERED: methylPREDNISolone SOD SUCCI 40 MG/ML 1 ML VIAL IV SCH (21:00)
[2024-04-29] MEDS ORDERED: predniSONE 20 MG TAB PO SCH (09:00)
== END 2024-04-28 17:15 | DRG 190 ==
LOC: EC 15:44 → 4SSUR 22:08
PROVIDERS: ADMIT Internal Medicine; ATTEND Internal Medicine
DX: J44.1 Chronic obstructive pulmonary disease with (acute) exacerbation (principal); J96.21 Acute and chronic respiratory failure with hypoxia; E87.1 Hypo-osmolality and hyponatremia; I50.32 Chronic diastolic (congestive) heart failure; Z68.41 Body mass index [BMI] 40.0-44.9, adult; D72.829 Elevated white blood cell count, unspecified; E11.51 Type 2 diabetes mellitus with diabetic peripheral angiopathy without gangrene; E66.9 Obesity, unspecified; E78.5 Hyperlipidemia, unspecified; F32.A Depression, unspecified; F40.240 Claustrophobia; F43.10 Post-traumatic stress disorder, unspecified; I11.0 Hypertensive heart disease with heart failure; Z11.52 Encounter for screening for COVID-19; I25.10 Atherosclerotic heart disease of native coronary artery without angina pectoris; I25.2 Old myocardial infarction; T38.0X5A Adverse effect of glucocorticoids and synthetic analogues, initial encounter; Z79.02 Long term (current) use of antithrombotics/antiplatelets; Z79.51 Long term (current) use of inhaled steroids; Z79.82 Long term (current) use of aspirin; Z79.84 Long term (current) use of oral hypoglycemic drugs; Z79.899 Other long term (current) drug therapy; Z82.49 Family history of ischemic heart disease and other diseases of the circulatory system; Z86.0100 Personal history of colon polyps, unspecified; Z86.16 Personal history of COVID-19; Z86.711 Personal history of pulmonary embolism; Z87.442 Personal history of urinary calculi; Z87.891 Personal history of nicotine dependence; Z91.199 Patient's noncompliance with other medical treatment and regimen due to unspecified reason; Z95.5 Presence of coronary angioplasty implant and graft; Z99.81 Dependence on supplemental oxygen; Z88.8 Allergy status to other drugs, medicaments and biological substances; Z88.1 Allergy status to other antibiotic agents; X58.XXXA Exposure to other specified factors, initial encounter
CPT/HCPCS: 36415; 71046; 80048; 80053; 83605; 83735; 83880; 84484; 85025; 85610; 85730; 87040; 87636; 93005; 94640; 96365; 96375; 99291

== ENCOUNTER 2024-04-30 15:22 | Emergency (ER) | payer OTHER, MEDICARE ==
--- NOTE | 2024-04-30 16:14 | ED ---
General Adult HPI - General Chief complaint: Shortness of Breath Stated complaint: SOB Time Seen by Provider: 04/30/24 15:33 Source: patient, RN notes reviewed, old records reviewed Mode of arrival: wheelchair Limitations: no limitations - History of Present Illness Initial comments: 78-year-old male presenting for reevaluation of cough and dyspnea, history of COPD with recent admission and discharge 2 days prior. Patient has a productive cough with yellow sputum. No central chest pain. No fever. - Related Data Home Medications Medication Instructions Recorded Confirmed Aspirin EC [Ecotrin Low Dose] 81 mg PO DAILY 06/22/18 04/26/24 Budesonide/Formoterol Fumarate 2 puff INHALATION RT-BID 06/22/18 04/26/24 [Symbicort 160-4.5 Mcg Inhaler] Ipratropium/Albuterol Sulfate 1 puff INHALATION RT-QID 06/22/18 04/26/24 [Combivent Respimat Inhaler] Metoprolol Tartrate [Lopressor] 25 mg PO BID 06/22/18 04/26/24 Spironolactone 25 mg PO DAILY 06/22/18 04/26/24 lisinopriL [Zestril] 2.5 mg PO HS 06/22/18 04/26/24 Clopidogrel Bisulfate [Plavix] 75 mg PO DAILY 07/01/18 04/26/24 Albuterol Inhaler [Ventolin Hfa 2 puff INHALATION RT-TID PRN 12/07/19 04/26/24 Inhaler] Albuterol Nebulized [Ventolin 2.5 mg INHALATION RT-QID 12/07/19 04/26/24 Nebulized] Loratadine [Claritin] 10 mg PO DAILY 12/07/19 04/26/24 Simvastatin [Zocor] 40 mg PO HS 12/07/19 04/26/24 Tiotropium 18 Mcg/Puff [Spiriva] 2 puff INHALATION RT-DAILY 12/07/19 04/26/24 Cholecalciferol [Vitamin D3 (25 25 mcg PO BID 03/17/24 04/26/24 Mcg = 1000 Iu)] Ferrous Sulfate [Iron (65 MG 325 mg PO W/LUNCH 04/06/24 04/26/24 Elemental)] Folic Acid 1 mg PO DAILY 04/06/24 04/26/24 Vitamin B-12 50mcg 50 mcg PO DAILY 04/06/24 04/26/24 Furosemide [Lasix] 20 mg PO DIRECTED 04/16/24 04/26/24 Previous Rx's Medication Instructions Recorded predniSONE [Deltasone] See Taper PO DAILY #50 tab 04/28/24 Allergies Allergy/AdvReac Type Severity Reaction Status Date / Time fluticasone AdvReac Nausea Verified 04/30/24 15:23 [From [facility]] levofloxacin [From Levaquin] AdvReac TENDON PAIN Verified 04/30/24 15:23 salmeterol AdvReac Nausea Verified 04/30/24 15:23 [From [facility]] Review of Systems ROS Statement: Those systems with pertinent positive or pertinent negative responses have been documented in the HPI. ROS Other: All systems not noted in ROS Statement are negative. Past Medical History Past Medical History: Coronary Artery Disease (CAD), COPD, GERD/Reflux, Hyperlipidemia, Hypertension, Myocardial Infarction (SD), Pulmonary Embolus (PE), Renal Disease Additional Past Medical History / Comment(s): Home oxygen prn and pt states he usually wears at night at 2.5 liters, bilateral PEs in 2003, ETOH abuse-pt states he has never had withdrawal symptoms, chronic low back pa in/sciatica/spurs/disc disease much improved after back injections, past urinary retention, diverticulitis/benign colon polyps removed, nephrolithiasis-passed stones on his own, shingelles 16 years ago-R shoulder. Last Myocardial Infarction Date:: 2010 History of Any Multi-Drug Resistant Organisms: None Reported Past Surgical History: Heart Catheterization With Stent Additional Past Surgical History / Comment(s): Back injections for pain, piece of metal removed from rt eye, EGD, colonoscopy Past Anesthesia/Blood Transfusion Reactions: No Reported Reaction Additional Past Anesthesia/Blood Transfusion Reaction / Comment(s): claustrophobia Date of Last Stent Placement:: 2010 Past Psychological History: Anxiety, Depression, PTSD Smoking Status: Former smoker Past Alcohol Use History: None Reported Past Drug Use History: None Reported - Past Family History Mother Family Medical History: Cancer Additional Family Medical History / Comment(s): from breast cancer at age 53 Father Family Medical History: Coronary Artery Disease (CAD), Myocardial Infarction (SD) Additional Family Medical History / Comment(s): 4 mi's/CABG. at at age 72 General Exam Limitations: no limitations General appearance: alert, in distress Head exam: Present: atraumatic, normocephalic Eye exam: Present: normal appearance, PERRL Neck exam: Present: normal inspection. Absent: tenderness, meningismus Respiratory exam: Present: respiratory distress, wheezes, prolonged expiratory Cardiovascular Exam: Present: normal rhythm, tachycardia GI/Abdominal exam: Present: soft. Absent: distended, tenderness, guarding Neurological exam: Present: alert, oriented X3, CN II-XII intact. Absent: motor sensory deficit Psychiatric exam: Present: anxious Skin exam: Present: warm, dry, intact Course Vital Signs 04/30/24 04/30/24 15:23 16:12 Temperature 98.3 F Pulse Rate 116 H Respiratory 28 H 22 Rate Blood Pressure 153/81 O2 Sat by Pulse 96 98 Oximetry Medical Decision Making - Medical Decision Making Was pt. sent in by a medical professional or institution (, PA, DIRECT CARE PROVIDER, urgent care, hospital, or jail...) When possible be specific @ -No Did you speak to anyone other than the patient for history (EMS, parent, family, police, friend...)? What history was obtained from this source @ -No Did you review nursing and triage notes (agree or disagree)? Why? @ -I reviewed and agree with nursing and triage notes Were old charts reviewed (outside hosp., previous admission, EMS record, old EKG, old radiological studies, urgent care reports/EKG's, jail records)? Report findings @ -No old charts were reviewed Differential Diagnosis (chest pain, altered mental status, abdominal pain women, abdominal pain men, vaginal bleeding, weakness, fever, dyspnea, syncope, he adache, dizziness, GI bleed, back pain, seizure, CVA, palpatations, mental health, musculoskeletal)? @ -Not applicable EKG interpreted by me (3pts min.). @ -[Sinus tachycardia rate of 102, KS interval 151, QRS duration 87, QTc [address] segment elevation. X-rays interpreted by me (1pt min.). @ -X-ray interpreted by myself, concern for left lower lobe infiltrate CT interpreted by me (1pt min.). @ -None done U/S interpreted by me (1pt. min.). @ -None done What testing was considered but not performed or refused? (CT, X-rays, U/S, labs)? Why? @ -None What meds were considered but not given or refused? Why? @ -None Did you discuss the management of the patient with other professionals (elmo leyva i.e. , PA, DIRECT CARE PROVIDER, lab, RT, psych nurse, professor of social work, solar panel technician, teacher, neighborhood conservation officer, counseling case manager)? Give summary @ -Case discussed with Ifeanyi meyer admit for sound physician group Was smoking cessation discussed for >3mins.? @ -No Was critical care preformed (if so, how long)? @ -[Yes, 35 minutes Were there social determinants of health that impacted care today? How? (Homelessness, low income, unemployed, alcoholism, drug addiction, transportation, low edu. Level, literacy, decrease access to med. care, snf, rehab)? @ -No Was there de-escalation of care discussed even if they declined (Discuss DNR or withdrawal of care, Hospice)? DNR status @ -No What co-morbidities impacted this encounter? (DM, HTN, Smoking, COPD, CAD, Cancer, CVA, ARF, Chemo, Hep., AIDS, mental health diagnosis, sleep apnea, morbid obesity)? @ -COPD, chronic O2 Was patient admitted / discharged? Hospital course, mention meds given and route, prescriptions, significant lab abnormalities, going to OR and other pertinent info. @ -Hospital course Undiagnosed new problem with uncertain prognosis? @ -No Drug Therapy requiring intensive monitoring for toxicity (Heparin, Nitro, Insulin, Cardizem)? @ -No Were any procedures done? @ -No Diagnosis/symptom? @ -COPD exacerbation secondary to coronavirus. Patient presenting in respiratory distress with diffuse wheezing, tachycardic, tachypneic, hypoxic. Patient given albuterol, steroids, workup is initiated including chest x-ray laboratory testing. Patient has a leukocytosis which may be secondary to recent steroids versus acute infection. Chest x-ray shows concern for left lower lobe infiltrate. Patient has a lactic acid which is elevated this will be trended. Patient has an elevated troponin which I suspect is from hypoxia and demand and this level will also be trended. Patient will be admitted to internal medicine with pulmonology on consult. Acute, or Chronic, or Acute on Chronic? @ -Acute on chronic Uncomplicated (without systemic symptoms) or Complicated (systemic symptoms)? @ -Default Side effects of treatment? @ -No Exacerbation, Progression, or Severe Exacerbation? @ -No Poses a threat to life or bodily function? How? (Chest pain, USA, SD, pneumonia, PE, COPD, DKA, ARF, appy, cholecystitis, CVA, Diverticulitis, Homicidal, Suicidal, threat to staff... and all critical care pts) @ -[Yes, respiratory failure, pneumonia, COPD - Lab Data Result diagrams: 04/30/24 16:07 04/30/24 16:07 Lab Results 04/30/24 04/30/24 04/30/24 Range/Units 16:07 16:07 16:07 WBC 17.1 H (3.8-10.6) k/uL RBC 4.72 (4.30-5.90) m/uL Hgb 13.6 (13.0-17.5) gm/dL Hct 40.2 (39.0-53.0) % MCV 85.3 (80.0-100.0) fL MCH 28.8 (25.0-35.0) pg MCHC 33.8 (31.0-37.0) g/dL RDW 14.7 (11.5-15.5) % Plt Count 217 (150-450) k/uL MPV 7.0 Neutrophils % 92 % Lymphocytes % 3 % Monocytes % 4 % Eosinophils % 0 % Basophils % 0 % Neutrophils # 15.7 H (1.3-7.7) k/uL Lymphocytes # 0.5 L (1.0-4.8) k/uL Monocytes # 0.8 (0-1.0) k/uL Eosinophils # 0.0 (0-0.7) k/uL Basophils # 0.0 (0-0.2) k/uL PT (10.0-12.5) sec INR (<1.2) APTT (22.0-30.0) sec Sodium 131 L (137-145) mmol/L Potassium 4.5 (3.5-5.1) mmol/L Chloride 95 L (98-107) mmol/L Carbon Dioxide 29 (22-30) mmol/L Anion Gap 7 mmol/L BUN 23 H (9-20) mg/dL Creatinine 0.86 (0.66-1.25) mg/dL Est GFR (CKD-EPI)AfAm >90 (>60 ml/min/1.73 sqM) Est GFR (CKD-EPI)NonAf 84 (>60 ml/min/1.73 sqM) Glucose 192 H (74-99) mg/dL Plasma Lactic Acid Sandor 3.1 H* (0.7-2.0) mmol/L Calcium 8.8 (8.4-10.2) mg/dL Magnesium 2.0 (1.6-2.3) mg/dL Total Bilirubin 1.0 (0.2-1.3) mg/dL AST 24 (17-59) U/L ALT 24 (4-49) U/L Alkaline Phosphatase 53 (38-126) U/L Troponin I (0.000-0.034) ng/mL NT-Pro-B Natriuret Pep 1470 pg/mL Total Protein 5.8 L (6.3-8.2) g/dL Albumin 3.8 (3.5-5.0) g/dL Influenza Type A (PCR) (Not Detectd) Influenza Type B (PCR) (Not Detectd) RSV (PCR) (Not Detectd) SARS-CoV-2 (PCR) (Not Detectd) 04/30/24 04/30/24 04/30/24 Range/Units 16:07 16:07 16:30 WBC (3.8-10.6) k/uL RBC (4.30-5.90) m/uL Hgb (13.0-17.5) gm/dL Hct (39.0-53.0) % MCV (80.0-100.0) fL MCH (25.0-35.0) pg MCHC (31.0-37.0) g/dL RDW (11.5-15.5) % Plt Count (150-450) k/uL MPV Neutrophils % % Lymphocytes % % Monocytes % % Eosinophils % % Basophils % % Neutrophils # (1.3-7.7) k/uL Lymphocytes # (1.0-4.8) k/uL Monocytes # (0-1.0) k/uL Eosinophils # (0-0.7) k/uL Basophils # (0-0.2) k/uL PT 10.4 (10.0-12.5) sec INR 0.9 (<1.2) APTT 18.7 L (22.0-30.0) sec Sodium (137-145) mmol/L Potassium (3.5-5.1) mmol/L Chloride (98-107) mmol/L Carbon Dioxide (22-30) mmol/L Anion Gap mmol/L BUN (9-20) mg/dL Creatinine (0.66-1.25) mg/dL Est GFR (CKD-EPI)AfAm (>60 ml/min/1.73 sqM) Est GFR (CKD-EPI)NonAf (>60 ml/min/1.73 sqM) Glucose (74-99) mg/dL Plasma Lactic Acid Sandor (0.7-2.0) mmol/L Calcium (8.4-10.2) mg/dL Magnesium (1.6-2.3) mg/dL Total Bilirubin (0.2-1.3) mg/dL AST (17-59) U/L ALT (4-49) U/L Alkaline Phosphatase (38-126) U/L Troponin I 0.066 H* (0.000-0.034) ng/mL NT-Pro-B Natriuret Pep pg/mL Total Protein (6.3-8.2) g/dL Albumin (3.5-5.0) g/dL Influenza Type A (PCR) Not Detected (Not Detectd) Influenza Type B (PCR) Not Detected (Not Detectd) RSV (PCR) Not Detected (Not Detectd) SARS-CoV-2 (PCR) Detected A (Not Detectd) Critical Care Time Critical Care Time: Yes Total Critical Care Time: 35 Disposition Clinical Impression: COVID-19, COPD with acute exacerbation Disposition: ADMITTED IP TO THIS HOSP Condition: Stable Is patient prescribed a controlled substance at d/c from ED?: No Referrals: None,Stated [Primary Care Provider] - 1-2 days Time of Disposition: 17:50
[2024-04-30 16:22] LABS: Basophils % (A) 0 %; Eosinophils % (A) 0 %; HCT 40.2 % (39.0-53.0); HGB 13.6 gm/dL (13.0-17.5); Lymphocytes # (A) 0.5 k/uL (1.0-4.8); Lymphocytes % (A) 3 %; MCH 28.8 pg (25.0-35.0); MCHC 33.8 g/dL (31.0-37.0); MCV 85.3 fL (80.0-100.0); Monocytes # (A) 0.8 k/uL (0-1.0); Monocytes % (A) 4 %; Neutrophils # (A) 15.7 k/uL (1.3-7.7); Neutrophils % (A) 92 %; Platelet Count 217 k/uL (150-450); RBC 4.72 m/uL (4.30-5.90); RDW 14.7 % (11.5-15.5); WBC 17.1 k/uL (3.8-10.6)
[2024-04-30 16:37] LABS: ALT 24 U/L (4-49); AST 24 U/L (17-59); African American GFR (CKD) >90 (>60 ml/min/1.73 sqM); Albumin 3.8 g/dL (3.5-5.0); Alkaline Phosphatase 53 U/L (38-126); Anion Gap 7 mmol/L; Blood Urea Nitrogen 23 mg/dL (9-20); Calcium 8.8 mg/dL (8.4-10.2); Carbon Dioxide 29 mmol/L (22-30); Chloride 95 mmol/L (98-107); Glucose 192 mg/dL (74-99); Non-African American GFR(CKD) 84 (>60 ml/min/1.73 sqM); Potassium 4.5 mmol/L (3.5-5.1); Sodium 131 mmol/L (137-145); Total Protein 5.8 g/dL (6.3-8.2)
[2024-04-30 16:44] LABS: NT-Pro-B-Type Natriuretic Pept 1470 pg/mL
[2024-04-30 16:53] LABS: INR 0.9 (<1.2); Prothrombin Time 10.4 sec (10.0-12.5)
[2024-04-30 17:03] LABS: Partial Thromboplastin Time 18.7 sec (22.0-30.0)
[2024-04-30] MEDS: ALBUTEROL HFA INHALER INHALATION STA ×2 (17:27)
[2024-04-30] MEDS: TIOTROPIUM 2.5 MCG INHALER INHALATION STA (17:27)
[2024-04-30] MEDS: ALBUTEROL NEBULIZED 2.5 MG/3 ML INHALATION STA (17:27)
[2024-04-30] MEDS: IPRATROPIUM-ALBUTEROL 3 ML NEB INHALATION STA (17:27)
--- NOTE | 2024-04-30 17:30 | XR ---
EXAMINATION TYPE: XR chest 2V DATE OF EXAM: 04/30/2024 5:12 PM COMPARISON: Previous chest radiograph 04/25/2024. CLINICAL INDICATION: Male, 78 years old with history of difficulty breathing; [facility] TECHNIQUE: XR chest 2V Frontal and lateral views of the chest. FINDINGS: Lungs/Pleura: There is no evidence of pleural effusion, focal consolidation, or pneumothorax. Pulmonary vascularity: Unremarkable. Heart/mediastinum: Cardiomediastinal silhouette is unremarkable. Musculoskeletal: No acute osseous pathology. Other findings: None IMPRESSION: No acute abnormality in chest. [facility], , 04/30/2024 5:27 PM
[2024-04-30] MEDS: methylPREDNISolone SOD SUCCI 125 MG/2 ML VIAL IV STA (17:35)
[2024-04-30] MEDS ORDERED: IPRATROPIUM-ALBUTEROL 3 ML NEB INHALATION PRN (17:45)
[2024-04-30] MEDS ORDERED: NALOXONE 0.4 MG/ML 1 ML VIAL IVP PRN (17:45)
[2024-04-30] MEDS ORDERED: ACETAMINOPHEN TAB 325 MG TAB PO PRN (17:45)
[2024-04-30] MEDS ORDERED: ALBUTEROL HFA INHALER INHALATION PRN (17:51)
[2024-04-30] MEDS: SODIUM CHLORIDE 0.9% 500 ML 500 ML IV ONE (17:59)
[2024-04-30] MEDS ORDERED: SODIUM CHLORIDE 0.9% 1,000 ML IV SCH (18:00)
[2024-04-30] MEDS ORDERED: DEXTROSE 50% SYRINGE 50 ML IVP PRN ×2 (18:11)
--- NOTE | 2024-04-30 18:13 | P.HPIM ---
History of Present Illness H&P Date: 04/30/24 Chief Complaint: Shortness of breath Tiburcio is a 78-year-old male with past medical history of COPD and recent COVID- 19 infection. Of note the patient was discharged to [facility] on April 28. He was admitted April 25 at that time. He reports he had left [facility] and reports that he had dyspnea for a few days now. He reports that he feels as if his legs are numb. Of note the patient was also discharged on April 18 as well. When he had presented to hospital he was noted be tachypneic tachycardic he was hemodynamically stable and was 96% on 3 L oxygen. Lab work revealed a white blood cell count of 17 INR 0.9 CMP had revealed a lactic acid 3.1 initial tropo kina was 0.06. He had still tested positive for COVID-19. Chest x-ray revealed no acute abnormality. He was given 125 mg IV methylprednisone along with ceftriaxone and azithromycin Review of Systems Positive for shortness of breath Past Medical History Past Medical History: Coronary Artery Disease (CAD), COPD, GERD/Reflux, Hype rlipidemia, Hypertension, Myocardial Infarction ([place]), Pulmonary Embolus (PE), Renal Disease Additional Past Medical History / Comment(s): Home oxygen prn and pt states he usually wears at night at 2.5 liters, bilateral PEs in 2003, ETOH abuse-pt states he has never had withdrawal symptoms, chronic low back pain/sciatica/spurs/disc disease much improved after back injections, past urinary retention, diverticulitis/benign colon polyps removed, nephrolithiasis- passed stones on his own, shingelles 16 years ago-R shoulder. Last Myocardial Infarction Date:: 2010 History of Any Multi-Drug Resistant Organisms: None Reported Past Surgical History: Heart Catheterization With Stent Additional Past Surgical History / Comment(s): Back injections for pain, piece of metal removed from rt eye, EGD, colonoscopy Past Anesthesia/Blood Transfusion Reactions: No Reported Reaction Additional Past Anesthesia/Blood Transfusion Reaction / Comment(s): claustrophobia Date of Last Stent Placement:: 2010 Past Psychological History: Anxiety, Depression, PTSD Smoking Status: Former smoker Past Alcohol Use History: None Reported Past Drug Use History: None Reported - Past Family History Mother Family Medical History: Cancer Additional Family Medical History / Comment(s): from breast cancer at age 53 Father Family Medical History: Coronary Artery Disease (CAD), Myocardial Infarction ([place]) Additional Family Medical History / Comment(s): 4 mi's/CABG. at at age 72 Medications and Allergies Home Medications Medication Instructions Recorded Confirmed Type Aspirin EC [Ecotrin Low Dose] 81 mg PO DAILY 06/22/18 04/26/24 History Budesonide/Formoterol Fumarate 2 puff INHALATION RT-BID 06/22/18 04/26/24 History [Symbicort 160-4.5 Mcg Inhaler] Ipratropium/Albuterol Sulfate 1 puff INHALATION RT-QID 06/22/18 04/26/24 History [Combivent Respimat Inhaler] Metoprolol Tartrate [Lopressor] 25 mg PO BID 06/22/18 04/26/24 History Spironolactone 25 mg PO DAILY 06/22/18 04/26/24 History lisinopriL [Zestril] 2.5 mg PO HS 06/22/18 04/26/24 History Clopidogrel Bisulfate [Plavix] 75 mg PO DAILY 07/01/18 04/26/24 History Albuterol Inhaler [Ventolin Hfa 2 puff INHALATION RT-TID PRN 12/07/19 04/26/24 History Inhaler] Albuterol Nebulized [Ventolin 2.5 mg INHALATION RT-QID 12/07/19 04/26/24 History Nebulized] Loratadine [Claritin] 10 mg PO DAILY 12/07/19 04/26/24 History Simvastatin [Zocor] 40 mg PO HS 12/07/19 04/26/24 History Tiotropium 18 Mcg/Puff [Spiriva] 2 puff INHALATION RT-DAILY 12/07/19 04/26/24 History Cholecalciferol [Vitamin D3 (25 25 mcg PO BID 03/17/24 04/26/24 History Mcg = 1000 Iu)] Ferrous Sulfate [Iron (65 MG 325 mg PO W/LUNCH 04/06/24 04/26/24 History Elemental)] Folic Acid 1 mg PO DAILY 04/06/24 04/26/24 History Vitamin B-12 50mcg 50 mcg PO DAILY 04/06/24 04/26/24 History Furosemide [Lasix] 20 mg PO DIRECTED 04/16/24 04/26/24 History predniSONE [Deltasone] See Taper PO DAILY #50 tab 04/28/24 Rx Allergies Allergy/AdvReac Type Severity Reaction Status Date / Time fluticasone AdvReac Nausea Verified 04/30/24 15:23 [From Wixela Inhub] levofloxacin [From Levaquin] AdvReac TENDON PAIN Verified 04/30/24 15:23 salmeterol AdvReac Nausea Verified 04/30/24 15:23 [From Wixela Inhub] Physical Exam Vitals: Vital Signs Temp Pulse Resp BP Pulse Ox 04/30/24 16:12 22 98 04/30/24 15:23 98.3 F 116 H 28 H 153/81 96 Intake and Output 04/30/24 04/30/24 04/30/24 06:59 14:59 22:59 Other: Weight 113.398 kg General: Ill, appears stated age, obese habitus Derm: warm, dry Head: atraumatic, normocephalic, symmetric Eyes: EOMI, no lid lag, anicteric sclera, pupils equal round reactive to light ENT: Nose and ears atraumatic, no thrush, no pharyngeal erythema Neck: No thyromegaly, no cervical lymphadenopathy, trachea midline, supple Mouth: no lip lesion, mucus membranes moist Cardiovascular: S1S2 reg, no murmur, positive posterior tibial pulse bilateral, no edema, capillary refill less than 2 seconds Lungs: Inspiratory wheezing to auscultation bilaterally on supplemental oxygen Abdominal: soft, nontender to palpation, no guarding, no appreciable organomegaly, normal bowel sounds Ext: 1+ pitting lower extremity edema Neuro: Roving all extremity spontaneously Psych: Alert, oriented, appropriate affect Results CBC & Chem 7: 04/30/24 16:07 04/30/24 16:07 Labs: Abnormal Lab Results - Last 24 Hours (Table) 04/30/24 04/30/24 04/30/24 Range/Units 16:07 16:07 16:07 WBC 17.1 H (3.8-10.6) k/uL Neutrophils # 15.7 H (1.3-7.7) k/uL Lymphocytes # 0.5 L (1.0-4.8) k/uL APTT (22.0-30.0) sec Sodium 131 L (137-145) mmol/L Chloride 95 L (98-107) mmol/L BUN 23 H (9-20) mg/dL Glucose 192 H (74-99) mg/dL Plasma Lactic Acid Sandor 3.1 H* (0.7-2.0) mmol/L Troponin I (0.000-0.034) ng/mL Total Protein 5.8 L (6.3-8.2) g/dL SARS-CoV-2 (PCR) (Not Detectd) 04/30/24 04/30/24 04/30/24 Range/Units 16:07 16:07 16:30 WBC (3.8-10.6) k/uL Neutrophils # (1.3-7.7) k/uL Lymphocytes # (1.0-4.8) k/uL APTT 18.7 L (22.0-30.0) sec Sodium (137-145) mmol/L Chloride (98-107) mmol/L BUN (9-20) mg/dL Glucose (74-99) mg/dL Plasma Lactic Acid Sandor (0.7-2.0) mmol/L Troponin I 0.066 H* (0.000-0.034) ng/mL Total Protein (6.3-8.2) g/dL SARS-CoV-2 (PCR) Detected A (Not Detectd) Assessment and Plan Assessment: #) Acute copd excerbation, possibly still due to continuation of his COVID-19 illness. Other etiologies can be a pulmonary embolus as he is post thrombotic. He does report lower extremity neuropathy. This appears to be chronic as per documentation from vascular surgery. I will check bilateral lower extremity Dopplers to rule out DVT in addition I will check a CTA chest to rule out a PE. Continue IV methylprednisone 40 mg twice daily DuoNebs 4 times daily along with Pulmicort nebs twice daily. Check sputum culture if a patient is able to bring up phlegm. I would hold off any antibiotics #) Chronic hypoxic respiraotry failure on 3 L NC, continuous estimating SpO2 greater than 90% #) DM2 not on insulin. Continue low intensity sliding scale insulin while inpatient #) Hyperlipdiemia, continue simvastatin 80 mg daily #) CAD status post stent continue aspirin/clopidogrel metoprolol and lisinopril #) HFpEF not in acute excerbation, continue Lasix 20 mg daily for volume control #) hx of b/l PE in 2003 #) PAD dispo: med/surge
[2024-04-30] MEDS: AZITHROMYCIN 500 MG in SODIUM CHLORIDE 0.9% 250 ML IVPB STA (18:41)
[2024-04-30 18:49] LABS: Basophils % (A) 0 %; Eosinophils % (A) 0 %; HCT 39.8 % (39.0-53.0); HGB 13.3 gm/dL (13.0-17.5); Lymphocytes # (A) 0.7 k/uL (1.0-4.8); Lymphocytes % (A) 5 %; MCH 28.9 pg (25.0-35.0); MCHC 33.6 g/dL (31.0-37.0); Mean Platelet Volume 6.9; Monocytes # (A) 0.7 k/uL (0-1.0); Monocytes % (A) 5 %; Neutrophils # (A) 13.9 k/uL (1.3-7.7); Neutrophils % (A) 90 %; Platelet Count 211 k/uL (150-450); RBC 4.62 m/uL (4.30-5.90); RDW 14.7 % (11.5-15.5); WBC 15.5 k/uL (3.8-10.6)
[2024-04-30 19:10] LABS: African American GFR (CKD) >90 (>60 ml/min/1.73 sqM); Anion Gap 4 mmol/L; Blood Urea Nitrogen 22 mg/dL (9-20); Calcium 8.7 mg/dL (8.4-10.2); Carbon Dioxide 33 mmol/L (22-30); Chloride 93 mmol/L (98-107); Glucose 174 mg/dL (74-99); Non-African American GFR(CKD) 85 (>60 ml/min/1.73 sqM); Potassium 4.4 mmol/L (3.5-5.1); Sodium 130 mmol/L (137-145)
[2024-04-30] MEDS ORDERED: IPRATROPIUM-ALBUTEROL 3 ML NEB INHALATION SCH (20:00)
[2024-04-30] MEDS ORDERED: FLUTICASONE 110 MCG INHALER INHALATION SCH (20:00)
[2024-04-30] MEDS ORDERED: ALBUTEROL HFA INHALER INHALATION SCH ×2 (20:00)
--- NOTE | 2024-04-30 20:04 | CT ---
EXAMINATION TYPE: CT angio chest DATE OF EXAM: 04/30/2024 7:32 PM COMPARISON: CT chest radiograph study dated 03/17/2024. CLINICAL INDICATION: Male, 78 years old with history of dyspnea; SOB, + covid TECHNIQUE/CONTRAST: CTA scan of the thorax is performed with IV Contrast, patient injected with 90cc mL of Isovue 370, RI P images are created and reviewed these are created on a separate workstation.. CT DLP: 723.7 mGycm, Automated exposure control for dose reduction was used. FINDINGS: Pulmonary Artery: No evidence of central or segmental acute pulmonary artery embolism. Apparent low-d ensity filling defect within the left lower lobe subsegmental pulmonary arteries (series 401 and imag e 88) felt to most likely reflect sequelae of significant motion artifact versus less likely small figueroa bsegmental pulmonary emboli. Pulmonary artery normal in size. Lungs/Pleura: Emphysema. No new suspicious or enlarging pulmonary nodule or pulmonary mass. No acute focal consolidation. No pleural effusion or pneumothorax. Airway: Large airways are patent. Heart: Heart is within normal limits for size. Coronary artery calculations. Vasculature: Mixed calcified plaque and partially visualized abdominal aortic aneurysm measuring appr oximately 3.0 x 3.1 cm. Mediastinum: No gross evidence of adenopathy. Musculoskeletal: No acute osseous abnormalities. Multilevel thoracic spine degenerative changes and c hronic wedge deformities of the lower thoracic spine. Multilevel anterior C5 formation. Soft Tissues/lymph nodes: Unremarkable. Lower neck: No significant findings. Upper Abdomen: No significant acute findings. Cysts in the right kidney. IMPRESSION: 1. No evidence of central or segmental pulmonary artery embolism. Suboptimal dilation of some segmen eleuterio pulmonary arteries due to motion artifact as described above. 2. No acute pulmonary pathology. 3. Additional nonacute findings as above. [facility], , 04/30/2024 8:02 PM
[2024-04-30] MEDS: SYMBICORT 160-4.5 MCG INHALER INHALATION SCH (20:06)
[2024-04-30 20:35] VITALS: BP 106/85; PULSE 94; RESP 20; TEMP 98.5
[2024-04-30 20:39] LABS: Glucose,Whole Blood 191 mg/dL (70-110)
--- NOTE | 2024-04-30 20:43 | US ---
EXAMINATION TYPE: US venous doppler duplex LE DATE OF EXAM: 04/30/2024 5:59 PM COMPARISON: NONE CLINICAL INDICATION: Male, 78 years old with history of swelling, elevated d-dimer; No redness. On b lood thinners. Positive for Covid. , Pain TECHNIQUE: The lower extremity deep venous system is examined utilizing real time linear array sonog brandon with graded compression, color doppler sonography, and spectral doppler. SIDE PERFORMED: Bilateral FINDINGS: VESSELS IMAGED: Common Femoral Vein Deep Femoral Vein Greater Saphenous Vein Femoral Vein Popliteal Vein Small Saphenous Vein Proximal Calf Veins Right Leg: Negative for DVT, Color Doppler imaging shows patency of the vessels. Spectral waveforms are within normal limits. Left Leg: Negative for DVT, Color Doppler imaging shows patency of the vessels. Spectral waveforms a re within normal limits. IMPRESSION: No ultrasound evidence for deep venous thrombosis. [facility], , 04/30/2024 8:41 PM
[2024-04-30] MEDS ORDERED: METOPROLOL TARTRATE 25 MG TAB PO SCH (21:00)
[2024-04-30] MEDS ORDERED: INSULIN ASPART (NovoLOG) 100 UNIT/ML VIAL SQ SCH (21:00)
[2024-04-30] MEDS ORDERED: ATORVASTATIN 20 MG TAB PO SCH (21:00)
[2024-05-01] MEDS ORDERED: methylPREDNISolone SOD SUCCI 125 MG/2 ML VIAL IV SCH
[2024-05-01] MEDS ORDERED: TIOTROPIUM 2.5 MCG INHALER INHALATION SCH ×3 (08:00)
[2024-05-01] MEDS ORDERED: ENOXAPARIN 40 MG/0.4 ML SYRINGE SQ SCH (09:00)
[2024-05-01] MEDS ORDERED: SPIRONOLACTONE 25 MG TAB PO SCH (09:00)
[2024-05-01] MEDS ORDERED: methylPREDNISolone SOD SUCCI 40 MG/ML 1 ML VIAL IV SCH (09:00)
[2024-05-01] MEDS ORDERED: CLOPIDOGREL 75 MG TAB PO SCH (09:00)
[2024-05-01] MEDS ORDERED: FOLIC ACID 1 MG TAB PO SCH (09:00)
[2024-05-01] MEDS ORDERED: FUROSEMIDE 20 MG TAB PO SCH (09:00)
[2024-05-01] MEDS ORDERED: LORATADINE 10 MG TAB PO SCH (09:00)
[2024-05-01] MEDS ORDERED: ASPIRIN 81 MG PO SCH (09:00)
[2024-05-01] MEDS ORDERED: FERROUS SULFATE 325 MG TAB PO SCH (12:30)
== END 2024-04-30 21:30 | disposition left against medical advice (07) ==
LOC: EC 15:22 → UNDOADMIN 17:45 → UNDOADMOB 17:45 → 3SCARD 17:45 → UNDODISOB 21:30 → EC 21:30
DX: J44.1 Chronic obstructive pulmonary disease with (acute) exacerbation (principal); U07.1 COVID-19; J96.10 Chronic respiratory failure, unspecified whether with hypoxia or hypercapnia; E11.40 Type 2 diabetes mellitus with diabetic neuropathy, unspecified; I50.30 Unspecified diastolic (congestive) heart failure; R79.89 Other specified abnormal findings of blood chemistry; I25.10 Atherosclerotic heart disease of native coronary artery without angina pectoris; E78.5 Hyperlipidemia, unspecified; E11.51 Type 2 diabetes mellitus with diabetic peripheral angiopathy without gangrene; Z79.82 Long term (current) use of aspirin; Z79.51 Long term (current) use of inhaled steroids; Z79.02 Long term (current) use of antithrombotics/antiplatelets; Z79.899 Other long term (current) drug therapy; Z79.52 Long term (current) use of systemic steroids; Z88.1 Allergy status to other antibiotic agents; Z88.8 Allergy status to other drugs, medicaments and biological substances; Z87.891 Personal history of nicotine dependence; Z11.59 Encounter for screening for other viral diseases; Z86.711 Personal history of pulmonary embolism
CPT/HCPCS: 96365; 96375; 99291; 36415; 94640 ×2; 93005; 83880; 80053; 80048; 83605; 83735; 84484; 85025; 85610; 85730; 87040; 87636; 71046; 93970; 71275; J0456; J0696; Q9967; J2919

== ENCOUNTER 2024-05-11 10:20 | Emergency (ER) | payer MEDICARE, OTHER ==
[2024-05-11 10:28] VITALS: RESP 18
--- NOTE | 2024-05-11 10:53 | ED ---
Back Pain HPI - General Chief Complaint: Back Pain/Injury Stated Complaint: back/hip pain Time Seen by Provider: 05/11/24 10:31 Source: patient, EMS Mode of arrival: EMS Limitations: no limitations - History of Present Illness Initial Comments: This is a 78-year-old male with history of chronic low back pain presenting the EMS from [facility] for [place] for low back and left hip pain (11/03) since last night. Patient states the mattresses at [facility] are very thin causing him significant pain and the aforementioned areas. Denies recent fall or traumatic event prior to start of pain. Denies pressure ulcerations at site of pain. Denies radiculopathy or paresthesia. Denies saddle paresthesia or urinary incontinence/retention. Patient denies allergy to most steroids. MD Complaint: back pain Onset/Timin -: hour(s) Similar Symptoms Previously: Yes Place: home Severity scale (1-10): 7 Quality: stabbing Consistency: constant Worsens With: movement, supine Associated Symptoms: denies other symptoms - Related Data Home Medications Medication Instructions Recorded Confirmed Aspirin EC [Ecotrin Low Dose] 81 mg PO DAILY 06/22/18 04/30/24 Budesonide/Formoterol Fumarate 2 puff INHALATION RT-BID 06/22/18 04/30/24 [Symbicort 160-4.5 Mcg Inhaler] Ipratropium/Albuterol Sulfate 1 puff INHALATION RT-QID 06/22/18 04/30/24 [Combivent Respimat Inhaler] Metoprolol Tartrate [Lopressor] 25 mg PO BID 06/22/18 04/30/24 Spironolactone 25 mg PO DAILY 06/22/18 04/30/24 lisinopriL [Zestril] 2.5 mg PO HS 06/22/18 04/30/24 Clopidogrel Bisulfate [Plavix] 75 mg PO DAILY 07/01/18 04/30/24 Albuterol Inhaler [Ventolin Hfa 2 puff INHALATION RT-TID PRN 12/07/19 04/30/24 Inhaler] Albuterol Nebulized [Ventolin 2.5 mg INHALATION RT-QID 12/07/19 04/30/24 Nebulized] Loratadine [Claritin] 10 mg PO DAILY 12/07/19 04/30/24 Simvastatin [Zocor] 40 mg PO HS 12/07/19 04/30/24 Tiotropium 18 Mcg/Puff [Spiriva] 2 puff INHALATION RT-DAILY 12/07/19 04/30/24 Cholecalciferol [Vitamin D3 (25 25 mcg PO BID 03/17/24 04/30/24 Mcg = 1000 Iu)] Ferrous Sulfate [Iron (65 MG 325 mg PO W/LUNCH 04/06/24 04/30/24 Elemental)] Folic Acid 1 mg PO DAILY 04/06/24 04/30/24 Vitamin B-12 50mcg 50 mcg PO DAILY 04/06/24 04/30/24 Furosemide [Lasix] 20 mg PO DAILY 04/16/24 04/30/24 Previous Rx's Medication Instructions Recorded predniSONE [Deltasone] See Taper PO DAILY #50 tab 04/28/24 Allergies Allergy/AdvReac Type Severity Reaction Status Date / Time fluticasone AdvReac Nausea Verified 05/11/24 10:28 [From Wixela Inhub] levofloxacin [From Levaquin] AdvReac TENDON PAIN Verified 05/11/24 10:28 salmeterol AdvReac Nausea Verified 05/11/24 10:28 [From Wixela Inhub] Review of Systems ROS Statement: Those systems with pertinent positive or pertinent negative responses have been documented in the HPI. ROS Other: All systems not noted in ROS Statement are negative. Past Medical History Past Medical History: Coronary Artery Disease (CAD), COPD, GERD/Reflux, Hyperlipidemia, Hypertension, Myocardial Infarction ([place]), Pulmonary Embolus (PE), Renal Disease Additional Past Medical History / Comment(s): Home oxygen prn and pt states he usually wears at night at 2.5 liters, bilateral PEs in 2003, ETOH abuse-pt states he has never had withdrawal symptoms, chronic low back pain/sciatica/spurs/disc disease much improved after back injections, past urinary retention, diverticulitis/benign colon polyps removed, nephrolithiasis- passed stones on his own, shingelles 16 years ago-R shoulder. Last Myocardial Infarction Date:: 2010 History of Any Multi-Drug Resistant Organisms: None Reported Past Surgical History: Heart Catheterization With Stent Additional Past Surgical History / Comment(s): Back injections for pain, piece of metal removed from rt eye, EGD, colonoscopy Past Anesthesia/Blood Transfusion Reactions: No Reported Reaction Additional Past Anesthesia/Blood Transfusion Reaction / Comment(s): claustrophobia Date of Last Stent Placement:: 2010 Past Psychological History: Anxiety, Depression, PTSD Smoking Status: Former smoker Past Alcohol Use History: None Reported Past Drug Use History: None Reported - Past Family History Mother Family Medical History: Cancer Additional Family Medical History / Comment(s): from breast cancer at age 53 Father Family Medical History: Coronary Artery Disease (CAD), Myocardial Infarction ([place]) Additional Family Medical History / Comment(s): 4 mi's/CABG. at at age 72 General Exam Limitations: no limitations General appearance: alert, in no apparent distress Head exam: Present: atraumatic, normocephalic, normal inspection Eye exam: Present: normal appearance, PERRL, EOMI. Absent: scleral icterus, conjunctival injection, periorbital swelling ENT exam: Present: normal exam, mucous membranes moist Neck exam: Present: normal inspection. Absent: tenderness, meningismus, lymphadenopathy Respiratory exam: Present: normal lung sounds bilaterally. Absent: respiratory distress, wheezes, rales, rhonchi, stridor Cardiovascular Exam: Present: regular rate, normal rhythm, normal heart sounds. Absent: systolic murmur, diastolic murmur, rubs, gallop, clicks GI/Abdominal exam: Present: soft, normal bowel sounds. Absent: distended, tenderness, guarding, rebound, rigid Extremities exam: Present: normal inspection, full ROM, normal capillary refill. Absent: tenderness, pedal edema, joint swelling, calf tenderness Back exam: Present: tenderness (Positive left superior gluteal point tenderness and muscle spasm. Negative localized erythema, ulcerations, lateral hip tenderness). Absent: vertebral tenderness Neurological exam: Present: alert, oriented X3, CN II-XII intact Psychiatric exam: Present: normal affect, normal mood Skin exam: Present: warm, dry, intact, normal color. Absent: rash Course Vital Signs 05/11/24 05/11/24 10:24 12:45 Temperature 98.4 F 98.1 F Pulse Rate 90 82 Respiratory 18 18 Rate Blood Pressure 122/81 128/79 O2 Sat by Pulse 98 98 Oximetry Medical Decision Making - Medical Decision Making Was pt. sent in by a medical professional or institution (, PA, HYDRAULIC JACK MECHANIC, urgent care, hospital, or detention...) When possible be specific @ -[No] Did you speak to anyone other than the patient for history (EMS, parent, family, police, friend...)? What history was obtained from this source @ -[No] Did you review nursing and triage notes (agree or disagree)? Why? @ -[I reviewed and agree with nursing and triage notes] Were old charts reviewed (outside hosp., previous admission, EMS record, old EKG, old radiological studies, urgent care reports/EKG's, detention records)? Report findings @ -[No old charts were reviewed] Differential Diagnosis (chest pain, altered mental status, abdominal pain women, abdominal pain men, vaginal bleeding, weakness, fever, dyspnea, syncope, headache, dizziness, GI bleed, back pain, seizure, CVA, palpatations, mental health, musculoskeletal)? @ -Differential Back Pain: Strain, zoster, cauda equina syndrome, epidural abscess, vertebral osteomyelitis, discitis, fracture, subluxation, disc herniation, DJD, spinal stenosis, dissection, AAA, pancreatitis, peptic ulcer disease, pyelonephritis, kidney stone, this is not meant to be an all-inclusive list. EKG interpreted by me (3pts min.). @ -Not done X-rays interpreted by me (1pt min.). @ -[None done] CT interpreted by me (1pt min.). @ -[None done] U/S interpreted by me (1pt. min.). @ -[None done] What testing was considered but not performed or refused? (CT, X-rays, U/S, labs)? Why? @ -[None] What meds were considered but not given or refused? Why? @ -[None] Did you discuss the management of the patient with other professionals (professionals i.e. , PA, HYDRAULIC JACK MECHANIC, lab, RT, psych nurse, social professionals, ice resurfacing machine operators, teacher, motor equipment commanding officer, trimming caser)? Give summary @ -[No] Was smoking cessation discussed for >3mins.? @ -[No] Was critical care preformed (if so, how long)? @ -[No] Were there social determinants of health that impacted care today? How? (Homelessness, low income, unemployed, alcoholism, drug addiction, transportation, low edu. Level, literacy, decrease access to med. care, skilled nursing, rehab)? @ -[No] Was there de-escalation of care discussed even if they declined (Discuss DNR or withdrawal of care, Hospice)? DNR status @ -[No] What co-morbidities impacted this encounter? (DM, HTN, Smoking, COPD, CAD, Cancer, CVA, ARF, Chemo, Hep., AIDS, mental health diagnosis, sleep apnea, morbid obesity)? @ -[None] Was patient admitted / discharged? Hospital course, mention meds given and route, prescriptions, significant lab abnormalities, going to OR and other pertinent info. @ -[hospital course] Undiagnosed new problem with uncertain prognosis? @ -[No] Drug Therapy requiring intensive monitoring for toxicity (Heparin, Nitro, Insulin, Cardizem)? @ -[No] Were any procedures done? @ -[No] Diagnosis/symptom? @ -[default] Acute, or Chronic, or Acute on Chronic? @ -Acute on chronic Uncomplicated (without systemic symptoms) or Complicated (systemic symptoms)? @ -Uncomplicated Side effects of treatment? @ -[No] Exacerbation, Progression, or Severe Exacerbation? @ -[No] Poses a threat to life or bodily function? How? (Chest pain, [place], [place], pneumonia, PE, COPD, DKA, ARF, appy, cholecystitis, CVA, Diverticulitis, Homicidal, Suicidal, threat to staff... and all critical care pts) @ -[No] Disposition Clinical Impression: Mechanical back pain Disposition: HOME SELF-CARE Condition: Good Instructions (If sedation given, give patient instructions): Acute Low Back Pain (ED) Is patient prescribed a controlled substance at d/c from ED?: No Referrals: Cheo Sullivan DO [STAFF PHYSICIAN] - 1-2 days Time of Disposition: 15:03
[2024-05-11] MEDS: ORPHENADRINE 30 MG/ML 2 ML VIAL IM STA (11:00)
[2024-05-11] MEDS: KETOROLAC 15 MG/ML 1 ML VIAL IM STA ×2 (11:09→12:09)
--- NOTE | 2024-05-11 11:23 | XR ---
EXAMINATION TYPE: XR Hip Complete LT DATE OF EXAM: 05/11/2024 11:19 AM COMPARISON: None CLINICAL INDICATION: Male, 78 years old with history of Left hip pain; PHH, pain TECHNIQUE: XR Hip Complete LT; Frontal and lateral views FINDINGS: No evidence for acute process, joint dislocation or significant soft tissue swelling. Osteo phyte formation of the superior acetabulum of the hip. There is mild joint space narrowing. Atheroscl erosis of the arterial vasculature. Cam deformity of the femoral head. IMPRESSION: 1. No evidence for acute process. 2. Mild hip osteoarthrosis. 3. Cam deformity of the femoral head. [facility], , 05/11/2024 11:21 AM
[2024-05-11] MEDS: KETOROLAC 15 MG/ML 1 ML VIAL IVP STA (11:29)
[2024-05-11] MEDS: methylPREDNISolone SOD SUCCI 125 MG/2 ML VIAL IM ONE (12:10)
[2024-05-11 13:03] VITALS: TEMP 98.1
[2024-05-11] MEDS: HYDROmorphone 0.5 MG/0.5 ML SYRINGE IM STA (13:08)
[2024-05-11] MEDS: HYDROmorphone 1 MG/ML 1 ML SYRINGE IM STA (14:45)
[2024-05-11 15:43] VITALS: BP 126/72; PULSE 80
== END 2024-05-11 15:44 | disposition home or self-care (01) ==
LOC: EC 10:20
DX: M54.50 Low back pain, unspecified (principal); Z87.891 Personal history of nicotine dependence; Z88.1 Allergy status to other antibiotic agents; Z88.8 Allergy status to other drugs, medicaments and biological substances
CPT/HCPCS: 73502; 99284; 96372; J2360; J1171 ×2; J1885; J2919

== ENCOUNTER 2024-05-17 10:46 | Inpatient (IN) | payer OTHER, MEDICARE ==
--- NOTE | 2024-05-17 11:13 | ED ---
General Adult HPI - General Chief complaint: Shortness of Breath Stated complaint: aidan Time Seen by Provider: 05/17/24 10:48 Source: patient, EMS Mode of arrival: EMS - History of Present Illness Initial comments: Dictation was produced using [employer] dictation software. please excuse any grammatical, word or spelling errors. Chief Complaint: 78-year-old male presents with shortness of breath History of Present Illness: Patient is a 88-year-old male he has multiple comorbidities. Patient wears home O2 at 3 L nasal cannula for treatment of COPD and heart failure. States that for the last couple days she has been feeling short of breath. Denies any cough. Denies any fevers. Patient was brought in from home by EMS. Patient was not found to be hypoxic by EMS. They did provide patient with a breathing treatment which patient reports helped slightly. Denies any chest pain. States that he has a chronic cough that does not appear to be any different. The ROS documented in this emergency department record has been reviewed and confirmed by me. Those systems with pertinent positive or negative responses have been documented in the HPI. All other systems are other negative and/or noncontributory. - Related Data Home Medications Medication Instructions Recorded Confirmed Aspirin EC [Ecotrin Low Dose] 81 mg PO DAILY 06/22/18 05/17/24 Budesonide/Formoterol Fumarate 2 puff INHALATION RT-BID 06/22/18 05/17/24 [Symbicort 160-4.5 Mcg Inhaler] Ipratropium/Albuterol Sulfate 1 puff INHALATION RT-QID 06/22/18 05/17/24 [Combivent Respimat Inhaler] Metoprolol Tartrate [Lopressor] 25 mg PO BID 06/22/18 05/17/24 Spironolactone 25 mg PO DAILY 06/22/18 05/17/24 lisinopriL [Zestril] 2.5 mg PO HS 06/22/18 05/17/24 Clopidogrel Bisulfate [Plavix] 75 mg PO DAILY 07/01/18 05/17/24 Albuterol Inhaler [Ventolin Hfa 2 puff INHALATION RT-TID PRN 12/07/19 05/17/24 Inhaler] Albuterol Nebulized [Ventolin 2.5 mg INHALATION RT-QID 12/07/19 05/17/24 Nebulized] Loratadine [Claritin] 10 mg PO DAILY 12/07/19 05/17/24 Simvastatin [Zocor] 40 mg PO HS 12/07/19 05/17/24 Tiotropium 18 Mcg/Puff [Spiriva] 2 puff INHALATION RT-DAILY 12/07/19 05/17/24 Cholecalciferol [Vitamin D3 (25 25 mcg PO BID 03/17/24 05/17/24 Mcg = 1000 Iu)] Ferrous Sulfate [Iron (65 MG 325 mg PO W/LUNCH 04/06/24 05/17/24 Elemental)] Folic Acid 1 mg PO DAILY 04/06/24 05/17/24 Vitamin B-12 50mcg 50 mcg PO DAILY 04/06/24 05/17/24 Furosemide [Lasix] 20 mg PO DAILY 04/16/24 05/17/24 predniSONE [Deltasone] See Taper PO DIRECTED 05/17/24 05/17/24 Allergies Allergy/AdvReac Type Severity Reaction Status Date / Time fluticasone AdvReac Nausea Verified 05/17/24 10:56 [From Wixela Inhub] levofloxacin [From Levaquin] AdvReac TENDON PAIN Verified 05/17/24 10:56 salmeterol AdvReac Nausea Verified 05/17/24 10:56 [From Wixela Inhub] Review of Systems ROS Statement: Those systems with pertinent positive or pertinent negative responses have been documented in the HPI. ROS Other: All systems not noted in ROS Statement are negative. Past Medical History Past Medical History: Coronary Artery Disease (CAD), COPD, GERD/Reflux, Hyperlipidemia, Hypertension, Myocardial Infarction (SC), Pulmonary Embolus (PE), Renal Disease Additional Past Medical History / Comment(s): Home oxygen prn and pt states he usually wears at night at 2.5 liters, bilateral PEs in 2003, ETOH abuse-pt states he has never had withdrawal symptoms, chronic low back pain/sciatica/spurs/disc disease much improved after back injections, past ur inary retention, diverticulitis/benign colon polyps removed, nephrolithiasis- passed stones on his own, shingelles 16 years ago-R shoulder. Last Myocardial Infarction Date:: 2010 History of Any Multi-Drug Resistant Organisms: None Reported Past Surgical History: Heart Catheterization With Stent Additional Past Surgical History / Comment(s): Back injections for pain, piece of metal removed from rt eye, EGD, colonoscopy Past Anesthesia/Blood Transfusion Reactions: No Reported Reaction Additional Past Anesthesia/Blood Transfusion Reaction / Comment(s): claustrophobia Date of Last Stent Placement:: 2010 Past Psychological History: Anxiety, Depression, PTSD Smoking Status: Former smoker Past Alcohol Use History: None Reported Past Drug Use History: None Reported - Past Family History Mother Family Medical History: Cancer Additional Family Medical History / Comment(s): from breast cancer at age 53 Father Family Medical History: Coronary Artery Disease (CAD), Myocardial Infarction (SC) Additional Family Medical History / Comment(s): 4 mi's/CABG. at at age 72 General Exam - General Exam Comments Initial Comments: PHYSICAL EXAM: General Impression: Alert and oriented x3, dyspneic HEENT: Normocephalic atraumatic, extra-ocular movements intact, pupils equal and reactive to light bilaterally, mucous membranes moist. Cardiovascular: Heart regular rate and rhythm Chest: Able to complete full sentences, no retractions, no tachypnea Abdomen: abdomen soft, non-tender, non-distended, no organomegaly Musculoskeletal: Pulses present and equal in all extremities, no peripheral edema Motor: no focal deficits noted Neurological: CN II-XII grossly intact, no focal motor or sensory deficits noted Skin: Intact with no visualized rashes Psych: Normal affect and mood Course Vital Signs 05/17/24 05/17/24 05/17/24 10:48 11:11 11:24 Temperature 97.5 F L Pulse Rate 108 H Respiratory 22 26 H Rate Blood Pressure 105/77 O2 Sat by Pulse 100 100 Oximetry 05/17/24 05/17/24 05/17/24 11:26 11:31 11:58 Temperature Pulse Rate 97 99 97 Respiratory 24 22 14 Rate Blood Pressure O2 Sat by Pulse 97 Oximetry - Reevaluation(s) Reevaluation #1: 05/17/24 12:47 Chart review was performed. Patient had a CT angiography performed earlier this month that showed no PE. Patient also admitted. Discharge summary reviewed shows that patient was admitted for COPD exacerbation. Echocardiogram from April 11, 2024 reviewed showing normal LV function EKG Findings - EKG Comments: EKG Findings:: My EKG interpretation: Ventricular rate 107, sinus tachycardia,. 158, QRS 93, QTc 377 . No [place] prolongation, no QTC prolongation, no ST or T-wave changes noted. EKG compared to April 30, 2024 showing no changes. Overall, this EKG is unremarkable Medical Decision Making - Medical Decision Making Was pt. sent in by a medical professional or institution (, PA, BOOKMAKER'S CLERK, urgent care, hospital, or [place] health care facility...) When possible be specific @ -No Did you speak to anyone other than the patient for history (EMS, parent, family, police, friend...)? What history was obtained from this source @ -EMS as described above Did you review nursing and triage notes (agree or disagree)? Why? @ -I reviewed and agree with nursing and triage notes Were old charts reviewed (outside hosp., previous admission, EMS record, old EKG, old radiological studies, urgent care reports/EKG's, [place] health care facility records)? Report findings @ -See above Differential Diagnosis (chest pain, altered mental status, abdominal pain women, abdominal pain men, vaginal bleeding, musculoskeletal, weakness, fever, dyspnea, syncope, headache, dizziness, GI bleed, back pain, seizure, CVA, palpatations, mental health)? @ -Differential Dyspnea: Coronary syndrome, arrhythmia, tamponade, asthma, COPD, pulmonary embolism, pneumonia, pneumothorax, pulmonary effusion, anaphylaxis, diabetic ketoacidosis, flailed chest, pulmonary contusion, diaphragmatic rupture, anemia, neuromuscular, this is not meant to be an all-inclusive list. EKG interpreted by me (3pts min.). @ -See above X-rays interpreted by me (1pt min.). @ -Chest x-ray shows no acute processes CT interpreted by me (1pt min.). @ -None done U/S interpreted by me (1pt. min.). @ -None done What testing was considered but not performed or refused? (CT, X-rays, U/S, labs)? Why? @ -None What meds were considered but not given or refused? Why? @ -None Was smoking cessation discussed for >3mins.? @ -No Were there social determinants of health that impacted care today? How? (Homelessness, low income, unemployed, alcoholism, drug addiction, transportation, low edu. Level, literacy, decrease access to med. care, assisted, rehab)? @ -Poor social situation Was there de-escalation of care discussed even if they declined (Discuss DNR or withdrawal of care, Hospice)? DNR status @ -No What co-morbidities impacted this encounter? (DM, HTN, Smoking, COPD, CAD, Cancer, CVA, ARF, Chemo, Hep., AIDS, mental health diagnosis, sleep apnea, morbid obesity)? @ -COPD Was patient admitted / discharged? Hospital course, mention meds given and route, prescriptions, significant lab abnormalities, going to OR and other pertinent info. @ -78-year-old male states he lives at home by himself. Patient presents to the ER for shortness of breath. Vital signs upon arrival shows tachypnea of 26 and heart rate of 108. Rest of vital signs within acceptable limits. Patient has slightly diminished lung sounds bilaterally. Chart review was performed as described above. Laboratory evaluation obtained. Labs within acceptable limits. Patient troponin is 0.057 which is around his baseline. Lactic acid is slightly elevated at 2.3. Sodium is 130. Slight leukocytosis of 14.9 which is likely stress related. Venous blood gas is unremarkable. X-ray is nonacute. Patient given breathing treatment and anxiolytic medication reevaluated at bedside with improvement of symptoms. Patient will be admitted observation consultation to pulmonology. Case discussed with hospitalist for admission Did you discuss the management of the patient with other professionals (professionals i.e. , PA, BOOKMAKER'S CLERK, lab, RT, psych nurse, social security specialist, mis manager, teacher, transit police officer, protective services case worker)? Give summary @ -No Was critical care preformed (if so, how long)? @ -No Undiagnosed new problem with uncertain prognosis? @ -No Drug Therapy requiring intensive monitoring for toxicity (Heparin, Nitro, Insulin, Cardizem)? @ -No Were any procedures done? @ -No Diagnosis/symptom? Acute, or Chronic, or Acute on Chronic? Uncomplicated (without systemic symptoms) or Complicated (systemic symptoms)? @ -COPD exacerbation Side effects of treatment? @ -No Exacerbation, Progression, or Severe Exacerbation? @ -No Poses a threat to life or bodily function? How? (Chest pain, USA, SC, pneumonia, PE, COPD, DKA, ARF, appy, cholecystitis, CVA, Diverticulitis, Homicidal, Suicidal, threat to staff... and all critical care pts) @ -yes - Lab Data Result diagrams: 05/17/24 11:08 05/17/24 11:08 Lab Results 05/17/24 05/17/24 05/17/24 Range/Units 11:08 11:08 11:08 WBC 14.9 H (3.8-10.6) k/uL RBC 4.42 (4.30-5.90) m/uL Hgb 12.6 L (13.0-17.5) gm/dL Hct 37.1 L (39.0-53.0) % MCV 84.0 (80.0-100.0) fL MCH 28.6 (25.0-35.0) pg MCHC 34.1 (31.0-37.0) g/dL RDW 15.2 (11.5-15.5) % Plt Count 221 (150-450) k/uL MPV 6.9 Neutrophils % 86 % Lymphocytes % 7 % Monocytes % 5 % Eosinophils % 0 % Basophils % 0 % Neutrophils # 12.9 H (1.3-7.7) k/uL Lymphocytes # 1.1 (1.0-4.8) k/uL Monocytes # 0.7 (0-1.0) k/uL Eosinophils # 0.1 (0-0.7) k/uL Basophils # 0.0 (0-0.2) k/uL PT 10.0 (10.0-12.5) sec INR 0.9 (<1.2) APTT 19.3 L (22.0-30.0) sec VBG pH (7.31-7.41) VBG pCO2 (37-51) mmHg VBG HCO3 (24-28) mmol/L Sodium 130 L (137-145) mmol/L Potassium 4.4 (3.5-5.1) mmol/L Chloride 97 L (98-107) mmol/L Carbon Dioxide 26 (22-30) mmol/L Anion Gap 7 mmol/L BUN 11 (9-20) mg/dL Creatinine 0.69 (0.66-1.25) mg/dL Est GFR (CKD-EPI)AfAm >90 (>60 ml/min/1.73 sqM) Est GFR (CKD-EPI)NonAf >90 (>60 ml/min/1.73 sqM) Glucose 125 H (74-99) mg/dL Plasma Lactic Acid Sandor (0.7-2.0) mmol/L Calcium 9.0 (8.4-10.2) mg/dL Magnesium 1.6 (1.6-2.3) mg/dL Total Bilirubin 1.1 (0.2-1.3) mg/dL AST 24 (17-59) U/L ALT 29 (4-49) U/L Alkaline Phosphatase 64 (38-126) U/L Troponin I (0.000-0.034) ng/mL NT-Pro-B Natriuret Pep 1220 pg/mL Total Protein 5.9 L (6.3-8.2) g/dL Albumin 3.4 L (3.5-5.0) g/dL 05/17/24 05/17/24 05/17/24 Range/Units 11:08 11:08 11:08 WBC (3.8-10.6) k/uL RBC (4.30-5.90) m/uL Hgb (13.0-17.5) gm/dL Hct (39.0-53.0) % MCV (80.0-100.0) fL MCH (25.0-35.0) pg MCHC (31.0-37.0) g/dL RDW (11.5-15.5) % Plt Count (150-450) k/uL MPV Neutrophils % % Lymphocytes % % Monocytes % % Eosinophils % % Basophils % % Neutrophils # (1.3-7.7) k/uL Lymphocytes # (1.0-4.8) k/uL Monocytes # (0-1.0) k/uL Eosinophils # (0-0.7) k/uL Basophils # (0-0.2) k/uL PT (10.0-12.5) sec INR (<1.2) APTT (22.0-30.0) sec VBG pH 7.39 (7.31-7.41) VBG pCO2 45 (37-51) mmHg VBG HCO3 27 (24-28) mmol/L Sodium (137-145) mmol/L Potassium (3.5-5.1) mmol/L Chloride (98-107) mmol/L Carbon Dioxide (22-30) mmol/L Anion Gap mmol/L BUN (9-20) mg/dL Creatinine (0.66-1.25) mg/dL Est GFR (CKD-EPI)AfAm (>60 ml/min/1.73 sqM) Est GFR (CKD-EPI)NonAf (>60 ml/min/1.73 sqM) Glucose (74-99) mg/dL Plasma Lactic Acid Sandor 2.3 H* (0.7-2.0) mmol/L Calcium (8.4-10.2) mg/dL Magnesium (1.6-2.3) mg/dL Total Bilirubin (0.2-1.3) mg/dL AST (17-59) U/L ALT (4-49) U/L Alkaline Phosphatase (38-126) U/L Troponin I 0.057 H* (0.000-0.034) ng/mL NT-Pro-B Natriuret Pep pg/mL Total Protein (6.3-8.2) g/dL Albumin (3.5-5.0) g/dL Disposition Clinical Impression: COPD exacerbation Disposition: ADMITTED IP TO THIS HOSP Condition: Fair Referrals: [facility] [Primary Care Provider] - 1-2 days Decision Time: 12:56
[2024-05-17] MEDS: LORazepam 2 MG/ML INJ IV STA (11:20)
[2024-05-17] MEDS: IPRATROPIUM-ALBUTEROL 3 ML NEB INHALATION STA (11:26)
[2024-05-17 11:28] LABS: Basophils % (A) 0 %; Eosinophils # (A) 0.1 k/uL (0-0.7); Eosinophils % (A) 0 %; HCT 37.1 % (39.0-53.0); HGB 12.6 gm/dL (13.0-17.5); Lymphocytes # (A) 1.1 k/uL (1.0-4.8); Lymphocytes % (A) 7 %; MCH 28.6 pg (25.0-35.0); MCHC 34.1 g/dL (31.0-37.0); Mean Platelet Volume 6.9; Monocytes # (A) 0.7 k/uL (0-1.0); Monocytes % (A) 5 %; Neutrophils # (A) 12.9 k/uL (1.3-7.7); Neutrophils % (A) 86 %; Platelet Count 221 k/uL (150-450); RBC 4.42 m/uL (4.30-5.90); RDW 15.2 % (11.5-15.5); WBC 14.9 k/uL (3.8-10.6)
--- NOTE | 2024-05-17 11:32 | XR ---
EXAMINATION TYPE: XR chest 2V DATE OF EXAM: 05/17/2024 COMPARISON: NONE CLINICAL INDICATION: Male, 78 years old with history of dyspnea; , TECHNIQUE: XR chest 2V views of the chest. FINDINGS: The lungs are clear and there is no pneumothorax, pleural effusion, or focal pneumonia. Heart size normal and no overt failure. Osseous structures demonstrate hypertrophic and degenerative changes of the spine. IMPRESSION: 1. No acute process. [facility], , 05/17/2024 11:29 AM
[2024-05-17 11:47] LABS: ALT 29 U/L (4-49); AST 24 U/L (17-59); African American GFR (CKD) >90 (>60 ml/min/1.73 sqM); Albumin 3.4 g/dL (3.5-5.0); Alkaline Phosphatase 64 U/L (38-126); Anion Gap 7 mmol/L; Blood Urea Nitrogen 11 mg/dL (9-20); Carbon Dioxide 26 mmol/L (22-30); Chloride 97 mmol/L (98-107); Glucose 125 mg/dL (74-99); Magnesium 1.6 mg/dL (1.6-2.3); Non-African American GFR(CKD) >90 (>60 ml/min/1.73 sqM); Potassium 4.4 mmol/L (3.5-5.1); Sodium 130 mmol/L (137-145); Total Bilirubin 1.1 mg/dL (0.2-1.3); Total Protein 5.9 g/dL (6.3-8.2)
[2024-05-17 11:55] LABS: NT-Pro-B-Type Natriuretic Pept 1220 pg/mL
[2024-05-17 11:58] LABS: INR 0.9 (<1.2)
[2024-05-17 12:28] LABS: VBG PH 7.39 (7.31-7.41)
[2024-05-17 12:40] LABS: Partial Thromboplastin Time 19.3 sec (22.0-30.0)
[2024-05-17] MEDS ORDERED: NALOXONE 0.4 MG/ML 1 ML VIAL IVP PRN (12:52)
[2024-05-17] MEDS: predniSONE 20 MG TAB PO SCH (13:20)
[2024-05-17] MEDS: ACETAMINOPHEN TAB 325 MG TAB PO PRN (13:20)
--- NOTE | 2024-05-17 14:44 | P.HPIM ---
History of Present Illness H&P Date: 05/17/24 Patient is a 78 male with CAD (with stent), COPD (3 L home O2 at night only), CHF (EF 55-60%), hyperlipidemia, hypertension, myocardial infarction, bilateral pulmonary embolism, presenting with dyspnea. Patient states he was short of breath last night and was made worse this morning. States that it woke him up from his sleep last night. Patient endorses cough with yellow phlegm. Denies any alleviating or exacerbating factors for his dyspnea. Denies orthopnea. States that he has been hospitalized for something similar. Patient denies any fever, chills, night sweats, chest pain, abdominal pain, urinary symptoms. Denies any sick contacts. EKG independently interpreted displaying sinus tachycardia, occasional PVCs, P mitrale, rate 107 bpm, QTc 377 MS. CXR independently interpreted displaying no acute cardiopulmonary process troponin 0.057, proBNP 1220, WBC 14.9, Hgb 12.6, 8 CT 37.1, MCV 84, INR 0.9, VBG 7.3 , sodium 130, lactic acid 2.3 NAJMA 97.5 F, NH 108, RR 22, BP 105/77, O2 sat 100% on 3 L nasal cannula ED documentation reviewed. Review of systems: Pertinent positives and negatives as discussed in HPI, a complete review of systems was performed and all other systems are negative. Social history: Tobacco: Former 50-year pack smoker, quit 7 years ago Alcohol: Denies alcohol use Recreational drugs: Denies illicit drug use Travel: No recent travel Physical examination: Vital signs reviewed General: non toxic, no distress, appears at stated age, normal weight Derm: no unusual rashes/lesions, warm Head: atraumatic, normocephalic, symmetric Eyes: EOMI, anicteric sclera, pupils equal round reactive to light ENT: Nose and ears atraumatic Neck: No cervical lymphadenopathy, trachea midline, supple Mouth: no lip lesion, mucus membranes moist Cardiovascular: S1S2 reg, no murmur, positive dorsalis pedis pulse bilateral, no edema Lungs: Diminished lung sounds bilaterally, noted some coarse rhonchi at the lung bases Abdominal: soft, nontender to palpation, no guarding Ext: muscle strength 5 out of 5 in all 4 extremities grossly, no gross muscle atrophy Neuro: CN II-XI grossly intact, no gross focal neuro deficits Psych: Alert, oriented to person, place, and time Assessment/Plan: Patient is a 78 male with CAD (with stent), COPD, CHF, hyperlipidemia, hypertension, myocardial infarction, bilateral pulmonary embolism, presenting with dyspnea. #. Acute COPD exacerbation Acute CHF exacerbation, less likely proBNP 1220 Echo done in 03/2024 showed normal LV function with EF at 55-60% Chest x-ray independently interpreted displaying no cardiac acute cardiopulmonary process DuoNebs [id number] Prednisone 40 mg p.o. daily for 5 days Continue with home Symbicort Continue with Spiriva Azithromycin 500 mg IVPB for 3 days, procalcitonin, sputum cultures, Legionella urine antigen pending 3 L nasal cannula keep oxygen 8892% Cepheid 4 Plex pending Cardiac monitoring Pulmonology consult #. NSTEMI, likely type II 0.057 Patient denies chest pain Continue to trend #. Lactic acidosis Lactic acid 2.3 Likely type B d/t to beta agonist use #. CHF with preserved ejection fraction, 55% to 66% Resume Aldactone 25 mg p.o. daily Resume metoprolol 25 mg p.o. twice daily Resume Lasix 20 mg p.o. twice daily #. Chronic hyponatremia Sodium 130, at baseline #. Coronary artery disease Continue aspirin 81 mg Continue with simvastatin 80 mg p.o. at bedtime #. Hypertension Lisinopril 2.5 mg p.o. at bedtime F: N/A E: Replete electrolytes as needed N: Heart healthy diet A: Independently ambulatory DVT prophylaxis: Lovenox 40 SQ daily The patient is admitted as observation with an anticipated less than 2 midnight stay for evaluation of acute COPD exacerbation. Discussed with: Patient Anticipated discharge place: Home Ross Kwan MD PGY-1 IM Dictation was produced using [employer] dictation software. please excuse any grammatical, word or spelling errors. I have seen and evaluated the patient today. Discussed with the resident and agree with the residents finding and plan as documented in the resident's note. Changes highlighted in blue font. Past Medical History Past Medical History: Coronary Artery Disease (CAD), COPD, GERD/Reflux, Hyperlipidemia, Hypertension, Myocardial Infarction (ME), Pulmonary Embolus (PE), Renal Disease Additional Past Medical History / Comment(s): Home oxygen prn and pt states he usually wears at night at 2.5 liters, bilateral PEs in 2003, ETOH abuse-pt states he has never had withdrawal symptoms, chronic low back pain/sciatica/spurs/disc disease much improved after back injections, past urinary retention, diverticulitis/benign colon polyps removed, nephrolithiasis-passed stones on his own, shingelles 16 years ago-R shoulder. Last Myocardial Infarction Date:: 2010 History of Any Multi-Drug Resistant Organisms: None Reported Past Surgical History: Heart Catheterization With Stent Additional Past Surgical History / Comment(s): Back injections for pain, piece of metal removed from rt eye, EGD, colonoscopy Past Anesthesia/Blood Transfusion Reactions: No Reported Reaction Additional Past Anesthesia/Blood Transfusion Reaction / Comment(s): claustrophobia Date of Last Stent Placement:: 2010 Past Psychological History: Anxiety, Depression, PTSD Smoking Status: Former smoker Past Alcohol Use History: None Reported Past Drug Use History: None Reported - Past Family History Mother Family Medical History: Cancer Additional Family Medical History / Comment(s): from breast cancer at age 53 Father Family Medical History: Coronary Artery Disease (CAD), Myocardial Infarction (M I) Additional Family Medical History / Comment(s): 4 mi's/CABG. at at age 72 Medications and Allergies Home Medications Medication Instructions Recorded Confirmed Type Aspirin EC [Ecotrin Low Dose] 81 mg PO DAILY 06/22/18 05/17/24 History Budesonide/Formoterol Fumarate 2 puff INHALATION RT-BID 06/22/18 05/17/24 Hist ory [Symbicort 160-4.5 Mcg Inhaler] Ipratropium/Albuterol Sulfate 1 puff INHALATION RT-QID 06/22/18 05/17/24 History [Combivent Respimat Inhaler] Metoprolol Tartrate [Lopressor] 25 mg PO BID 06/22/18 05/17/24 History Spironolactone 25 mg PO DAILY 06/22/18 05/17/24 History lisinopriL [Zestril] 2.5 mg PO HS 06/22/18 05/17/24 History Clopidogrel Bisulfate [Plavix] 75 mg PO DAILY 07/01/18 05/17/24 History Albuterol Inhaler [Ventolin Hfa 2 puff INHALATION RT-TID PRN 12/07/19 05/17/24 History Inhaler] Albuterol Nebulized [Ventolin 2.5 mg INHALATION RT-QID 12/07/19 05/17/24 History Nebulized] Loratadine [Claritin] 10 mg PO DAILY 12/07/19 05/17/24 History Simvastatin [Zocor] 40 mg PO HS 12/07/19 05/17/24 History Tiotropium 18 Mcg/Puff [Spiriva] 2 puff INHALATION RT-DAILY 12/07/19 05/17/24 History Cholecalciferol [Vitamin D3 (25 25 mcg PO BID 03/17/24 05/17/24 History Mcg = 1000 Iu)] Ferrous Sulfate [Iron (65 MG 325 mg PO W/LUNCH 04/06/24 05/17/24 History Elemental)] Folic Acid 1 mg PO DAILY 04/06/24 05/17/24 History Vitamin B-12 50mcg 50 mcg PO DAILY 04/06/24 05/17/24 History Furosemide [Lasix] 20 mg PO DAILY 04/16/24 05/17/24 History predniSONE [Deltasone] See Taper PO DIRECTED 05/17/24 05/17/24 History Allergies Allergy/AdvReac Type Severity Reaction Status Date / Time fluticasone AdvReac Nausea Verified 05/17/24 10:56 [From Wixela Inhub] levofloxacin [From Levaquin] AdvReac TENDON PAIN Verified 05/17/24 10:56 salmeterol AdvReac Nausea Verified 05/17/24 10:56 [From Fabyela Inhub] Physical Exam Vitals: Vital Signs Temp Pulse Resp BP Pulse Ox 05/17/24 11:58 97 14 97 05/17/24 11:31 99 22 05/17/24 11:26 97 24 05/17/24 11:24 100 05/17/24 11:11 26 H 05/17/24 10:48 97.5 F L 108 H 22 105/77 100 Intake and Output 05/16/24 05/17/24 05/17/24 22:59 06:59 14:59 Other: Weight 112.037 kg Results CBC & Chem 7: 05/17/24 11:08 05/17/24 11:08 Labs: Abnormal Lab Results - Last 24 Hours (Table) 05/17/24 05/17/24 05/17/24 Range/Units 11:08 11:08 11:08 WBC 14.9 H (3.8-10.6) k/uL Hgb 12.6 L (13.0-17.5) gm/dL Hct 37.1 L (39.0-53.0) % Neutrophils # 12.9 H (1.3-7.7) k/uL APTT 19.3 L (22.0-30.0) sec Sodium 130 L (137-145) mmol/L Chloride 97 L (98-107) mmol/L Glucose 125 H (74-99) mg/dL Plasma Lactic Acid Sandor (0.7-2.0) mmol/L Troponin I (0.000-0.034) ng/mL Total Protein 5.9 L (6.3-8.2) g/dL Albumin 3.4 L (3.5-5.0) g/dL 05/17/24 05/17/24 Range/Units 11:08 11:08 WBC (3.8-10.6) k/uL Hgb (13.0-17.5) gm/dL Hct (39.0-53.0) % Neutrophils # (1.3-7.7) k/uL APTT (22.0-30.0) sec Sodium (137-145) mmol/L Chloride (98-107) mmol/L Glucose (74-99) mg/dL Plasma Lactic Acid Sandor 2.3 H* (0.7-2.0) mmol/L Troponin I 0.057 H* (0.000-0.034) ng/mL Total Protein (6.3-8.2) g/dL Albumin (3.5-5.0) g/dL
[2024-05-17] MEDS: IPRATROPIUM-ALBUTEROL 3 ML NEB INHALATION SCH (15:24)
[2024-05-17] MEDS: AZITHROMYCIN 500 MG in SODIUM CHLORIDE 0.9% 250 ML IVPB SCH (15:30)
[2024-05-17] MEDS: ENOXAPARIN 40 MG/0.4 ML SYRINGE SQ SCH (15:33)
[2024-05-17 16:15] LABS: Influenza A Not Detected (Not Detectd); Influenza B Not Detected (Not Detectd); RSV Not Detected (Not Detectd)
[2024-05-17] MEDS: SYMBICORT 160-4.5 MCG INHALER INHALATION SCH (20:33)
[2024-05-17] MEDS: ATORVASTATIN 20 MG TAB PO SCH (20:47)
[2024-05-17] MEDS: CHOLECALCIFEROL 25 MCG (1000 IU) TABLET PO SCH (20:47)
[2024-05-17] MEDS: METOPROLOL TARTRATE 25 MG TAB PO SCH (20:50)
[2024-05-17] MEDS ORDERED: traMADol 50 MG TAB PO PRN (22:00)
[2024-05-18] MEDS: methylPREDNISolone SOD SUCCI 125 MG/2 ML VIAL IV SCH (00:31)
[2024-05-18] MEDS: IPRATROPIUM-ALBUTEROL 3 ML NEB INHALATION PRN (00:57)
--- NOTE | 2024-05-18 03:17 | P.CNPUL ---
History of Present Illness Consult date: 05/18/24 Requesting physician: Julian Roberts Reason for consult: COPD Chief complaint: Shortness of breath, cough, wheezing History of present illness: Patient is a 78-year-old male with past medical history significant for COPD, chronic oxygen dependence, hypertension, hyperlipidemia, PAD, heart failure, among other things. Patient follows in the pulmonary office with Dr. Vargas, for management of his very severe COPD. He has missed his follow up appointment, and has not followed up since. He has an FEV1 from 29% of predicted. Normally, maintained on oxygen 3 L/min nasal cannula at night. He utilizes a combination of Breyna, Spiriva, and albuterol nebs [id number]. He has had multiple hospitalizations since March for COPD and recent COVID 19 illness. Most recently, hospitalized April 25 through April 28 with acute COPD exacerbation. He returned 2 days later for the same. Chest CTA during this time was negative for pulmonary embolism. Return to the emergency department yesterday afternoon complaining of severe shortness of breath and cough. States that his symptoms started yesterday after going outside in the cold to the grocery store. EMS was called and patient was noted to be hypoxic. He normally wears 3 L/min nasal cannula. Endorses a more productive cough with yellow sputum production. Denies any fevers, chills, hemoptysis, chest pain. Denies a [place] sick contacts. He lives alone, and states the only place he has been is to the grocery store. Workup in the emergency department includes a chest x-ray which does not show any acute cardiopulmonary process. Viral screen negative for influenza A/B, RSV, COVID. CBC remarkable for leukocytosis with a WBC count of 14.9, hemoglobin 12.6, hematocrit 37, platelets 221. CMP: Sodium 130, potassium 4.4, chloride 97, serum bicarb 26, BUN 11, creatinine 0.69, glucose 125. Lactic nonelevated. LFTs unremarkable. Serial troponins were elevated and are trending down; 0.057, 0.044, 0.042, 0.039 respectively. NT proBNP 1220. EKG done on arrival: Sinus tachycardia, rate 107 bpm, minimal ST depressions in 2, 3, aVF. VBG has a pH of 7.39 and pCO2 of 45. Patient was empirically sta azithromycin in the ED. Also started on bronchodilators, Symbicort Hailer, Spiriva, and IV Solu-Medrol. Patient is currently being evaluated in the emergency department, room 26. He is lying on his right side on the stretcher. He is dyspneic and appears in some respiratory distress. I did help him up to the bedside table. He is now tripoding. SpO2 on bedside monitor reading 100% on his baseline 3 L/min nasal cannula. No signs of CO2 narcosis. Respiratory therapy is going to come care of him a DuoNeb treatment. Review of Systems Constitutional: Reports poor appetite. Denies chills, Denies fatigue, Denies fever, Denies weight loss or weight gain Ears, nose, mouth and throat: Denies nasal congestion, Denies nasal discharge, Denies post-nasal drip, Denies sinus pain, Denies sinus pressure, Denies sore throat Cardiovascular: Reports dyspnea on exertion, Denies leg edema, Denies chest pain, Denies orthopnea, Denies palpitations, Denies paroxysmal nocturnal dyspnea, Denies syncope Respiratory: Reports as per HPI Gastrointestinal: Reports loss of appetite, Denies abdominal pain, Denies constipation, Denies diarrhea, Denies nausea, Denies vomiting Genitourinary: Denies dysuria Musculoskeletal: Denies limitation of motion Integumentary: Denies rash Neurological: Denies seizures, Denies syncope Psychiatric: Denies anxiety, Denies depression Past Medical History Past Medical History: Coronary Artery Disease (CAD), COPD, GERD/Reflux, Hyperlipidemia, Hypertension, Myocardial Infarction (PA), Pulmonary Embolus (PE), Renal Disease Additional Past Medical History / Comment(s): Home oxygen prn and pt states he usually wears at night at 2.5 liters, bilateral PEs in 2003, ETOH abuse-pt states he has never had withdrawal symptoms, chronic low back pain/sciatica/spurs/disc disease much improved after back injections, past urinary retention, diverticulitis/benign colon polyps removed, nephrolithiasis- passed stones on his own, shingelles 16 years ago-R shoulder. Last Myocardial Infarction Date:: 2010 History of Any Multi-Drug Resistant Organisms: None Reported Past Surgical History: Heart Catheterization With Stent Additional Past Surgical History / Comment(s): Back injections for pain, piece o f metal removed from rt eye, EGD, colonoscopy Past Anesthesia/Blood Transfusion Reactions: No Reported Reaction Additional Past Anesthesia/Blood Transfusion Reaction / Comment(s): claustrophobia Date of Last Stent Placement:: 2010 Past Psychological History: Anxiety, Depression, PTSD Smoking Status: Former smoker Past Alcohol Use History: None Reported Past Drug Use History: None Reported - Past Family History Mother Family Medical History: Cancer Additional Family Medical History / Comment(s): from breast cancer at age 53 Father Family Medical History: Coronary Artery Disease (CAD), Myocardial Infarction (PA) Additional Family Medical History / Comment(s): 4 mi's/CABG. at at age 72 Medications and Allergies Home Medications Medication Instructions Recorded Confirmed Type Aspirin EC [Ecotrin Low Dose] 81 mg PO DAILY 06/22/18 05/17/24 History Budesonide/Formoterol Fumarate 2 puff INHALATION RT-BID 06/22/18 05/17/24 History [Symbicort 160-4.5 Mcg Inhaler] Ipratropium/Albuterol Sulfate 1 puff INHALATION RT-QID 06/22/18 05/17/24 History [Combivent Respimat Inhaler] Metoprolol Tartrate [Lopressor] 25 mg PO BID 06/22/18 05/17/24 History Spironolactone 25 mg PO DAILY 06/22/18 05/17/24 History lisinopriL [Zestril] 2.5 mg PO HS 06/22/18 05/17/24 History Clopidogrel Bisulfate [Plavix] 75 mg PO DAILY 07/01/18 05/17/24 History Albuterol Inhaler [Ventolin Hfa 2 puff INHALATION RT-TID PRN 12/07/19 05/17/24 History Inhaler] Albuterol Nebulized [Ventolin 2.5 mg INHALATION RT-QID 12/07/19 05/17/24 History Nebulized] Loratadine [Claritin] 10 mg PO DAILY 12/07/19 05/17/24 History Simvastatin [Zocor] 40 mg PO HS 12/07/19 05/17/24 History Tiotropium 18 Mcg/Puff [Spiriva] 2 puff INHALATION RT-DAILY 12/07/19 05/17/24 History Cholecalciferol [Vitamin D3 (25 25 mcg PO BID 03/17/24 05/17/24 History Mcg = 1000 Iu)] Ferrous Sulfate [Iron (65 MG 325 mg PO W/LUNCH 04/06/24 05/17/24 History Elemental)] Folic Acid 1 mg PO DAILY 04/06/24 05/17/24 History Vitamin B-12 50mcg 50 mcg PO DAILY 04/06/24 05/17/24 History Furosemide [Lasix] 20 mg PO DAILY 04/16/24 05/17/24 History predniSONE [Deltasone] See Taper PO DIRECTED 05/17/24 05/17/24 History Allergies Allergy/AdvReac Type Severity Reaction Status Date / Time fluticasone AdvReac Nausea Verified 05/17/24 10:56 [From Wixela Inhub] levofloxacin [From Levaquin] AdvReac TENDON PAIN Verified 05/17/24 10:56 salmeterol AdvReac Nausea Verified 05/17/24 10:56 [From Wixela Inhub] Physical Exam Vitals: Vital Signs Temp Pulse Resp BP Pulse Ox 05/18/24 01:07 91 05/18/24 00:57 90 05/18/24 00:32 98.4 F 90 19 136/85 99 05/17/24 21:34 86 16 125/73 100 05/17/24 21:00 70 18 124/79 100 05/17/24 20:48 87 16 119/67 99 05/17/24 20:36 87 05/17/24 18:25 90 20 115/60 96 05/17/24 15:35 101 H 22 05/17/24 15:24 90 20 05/17/24 13:23 97 24 127/75 99 05/17/24 11:58 97 14 97 05/17/24 11:31 99 22 05/17/24 11:26 97 24 05/17/24 11:24 100 05/17/24 11:11 26 H 05/17/24 10:48 97.5 F L 108 H 22 105/77 100 Intake and Output 05/17/24 05/17/24 05/18/24 14:59 22:59 06:59 Other: Weight 112.037 kg GENERAL EXAM: Patient found laying on his right side, tachypneic, accessory muscle use, assisted to bedside table and now in a tripod stance. Breathing is now less labored. On 3 L/min nasal cannula. SpO2 is reading 100% on bedside monitor. HEAD: Normocephalic and atraumatic EYES: Normal reaction of pupils, equal size. NOSE: Clear with pink turbinates. THROAT: No erythema or exudates. NECK: No masses, no JVD. CHEST: No chest wall deformity. LUNGS: Equal air entry with markedly diminished lung sounds bilaterally throughout with end expiratory wheezes. On 3 L/min nasal cannula. Currently in a state of mild respiratory distress CVS: S1 and S2 normal with no audible murmur, regular rhythm. No extra heart sounds ABDOMEN: No hepatosplenomegaly, active bowel sounds, no guarding or rigidity. SPINE: No scoliosis or deformity SKIN: No rashes CENTRAL NERVOUS SYSTEM: No focal deficits, tone is normal in all 4 extremities. EXTREMITIES: No lower extremity edema clubbing, or cyanosis. Peripheral pulses are intact. Results - Laboratory Findings CBC and BMP: 05/17/24 11:08 05/17/24 11:08 PT/INR, D-dimer PT 10.0 sec (10.0-12.5) 05/17/24 11:08 INR 0.9 (<1.2) 05/17/24 11:08 Abnormal lab findings: Abnormal Labs 05/17/24 05/17/24 05/17/24 11:08 11:08 11:08 WBC 14.9 H Hgb 12.6 L Hct 37.1 L Neutrophils # 12.9 H APTT 19.3 L Sodium 130 L Chloride 97 L Glucose 125 H Plasma Lactic Acid Sandor Troponin I Total Protein 5.9 L Albumin 3.4 L 05/17/24 05/17/24 05/17/24 11:08 11:08 14:05 WBC Hgb Hct Neutrophils # APTT Sodium Chloride Glucose Plasma Lactic Acid Sandor 2.3 H* Troponin I 0.057 H* 0.044 H* Total Protein Albumin 05/17/24 05/17/24 16:42 20:26 WBC Hgb Hct Neutrophils # APTT Sodium Chloride Glucose Plasma Lactic Acid Sandor Troponin I 0.042 H* 0.039 H* Total Protein Albumin - Diagnostic Findings Chest x-ray: image reviewed Assessment and Plan Assessment: Acute COPD exacerbation; chest x-ray does not show any acute cardiopulmonary process, including focal infiltrates or evidence of pneumonia. Viral screen negative for influenza, RSV, COVID. Acute on top of chronic hypoxemic respiratory failure, secondary to above Leukocytosis Elevated troponins, downtrending, possibly secondary to type II PA and hypoxia Recent hospitalization for acute COVID infection, negative by PCR on this hospitalization History of hyperlipidemia History of hypertension History of CAD History of peripheral arterial disease Very severe chronic obstructive pulmonary disease, with an FEV1 29% of predicted, normally maintained on a combination of Breyna, Spiriva, albuterol nebs [id number] Chronic hypoxemic respiratory failure, secondary to above, normally oxygen dependent on 2-3 L/min nasal cannula mostly at bedtime Former tobacco dependence, quit smoking over 7 years ago Obesity, with a BMI of 40.3 kg/m Patient's medications, labs, chest x-ray reviewed Currently on 3 L/min nasal cannula; may wean to maintain SPO2 92% or greater Start patient on bronchodilators, Symbicort inhaler, Spiriva, and high-dose IV Solu-Medrol Continue empiric azithromycin GI prophylaxis: Protonix DVT prophylaxis: Lovenox We will continue to follow, additional recommendations forthcoming I have personally seen and examined the patient, performed the documentation and the assessment and plan as written. Number of minutes spent on the visit:20 This dictation was produced using [employer] dictation software please excuse grammatical errors Time with Patient: Greater than 30
[2024-05-18 07:51] LABS: Basophils % (A) 0 %; Eosinophils % (A) 0 %; HCT 34.7 % (39.0-53.0); HGB 11.6 gm/dL (13.0-17.5); Lymphocytes # (A) 0.5 k/uL (1.0-4.8); Lymphocytes % (A) 5 %; MCH 28.6 pg (25.0-35.0); MCHC 33.4 g/dL (31.0-37.0); MCV 85.6 fL (80.0-100.0); Monocytes # (A) 0.3 k/uL (0-1.0); Monocytes % (A) 2 %; Neutrophils # (A) 9.9 k/uL (1.3-7.7); Neutrophils % (A) 92 %; Platelet Count 205 k/uL (150-450); RBC 4.06 m/uL (4.30-5.90); RDW 14.9 % (11.5-15.5); WBC 10.8 k/uL (3.8-10.6)
[2024-05-18] MEDS: ALBUTEROL NEBULIZED 2.5 MG/3 ML INHALATION SCH (07:54)
[2024-05-18] MEDS ORDERED: TIOTROPIUM 2.5 MCG INHALER INHALATION SCH (08:00)
[2024-05-18 08:07] LABS: ALT 26 U/L (4-49); AST 20 U/L (17-59); African American GFR (CKD) >90 (>60 ml/min/1.73 sqM); Albumin 3.1 g/dL (3.5-5.0); Alkaline Phosphatase 55 U/L (38-126); Anion Gap 6 mmol/L; Blood Urea Nitrogen 12 mg/dL (9-20); Calcium 8.8 mg/dL (8.4-10.2); Carbon Dioxide 29 mmol/L (22-30); Chloride 96 mmol/L (98-107); Glucose 144 mg/dL (74-99); Magnesium 1.8 mg/dL (1.6-2.3); Non-African American GFR(CKD) >90 (>60 ml/min/1.73 sqM); Potassium 4.4 mmol/L (3.5-5.1); Sodium 131 mmol/L (137-145); Total Bilirubin 0.8 mg/dL (0.2-1.3); Total Protein 5.2 g/dL (6.3-8.2)
[2024-05-18] MEDS: LORATADINE 10 MG TAB PO SCH (08:43)
[2024-05-18] MEDS: FOLIC ACID 1 MG TAB PO SCH (08:43)
[2024-05-18] MEDS: ASPIRIN 81 MG PO SCH (08:44)
[2024-05-18] MEDS: CLOPIDOGREL 75 MG TAB PO SCH (08:44)
[2024-05-18] MEDS: SPIRONOLACTONE 25 MG TAB PO SCH (08:44)
[2024-05-18] MEDS: FUROSEMIDE 20 MG TAB PO SCH (09:12)
--- NOTE | 2024-05-18 11:32 | P.PN ---
Subjective Progress Note Date: 05/18/24 Hospital course: Patient is a 78 male with CAD (with stent), COPD (3 L home O2 at night only), CHF (EF 55-60%), hyperlipidemia, hypertension, myocardial infarction, bilateral pulmonary embolism, presenting with dyspnea. Patient states he was short of breath last night and was made worse this morning. States that it woke him up from his sleep last night. Patient endorses cough with yellow phlegm. Denies any alleviating or exacerbating factors for his dyspnea. Denies orthopnea. States that he has been hospitalized for something similar. Patient denies any fever, chills, night sweats, chest pain, abdominal pain, urinary symptoms. Denies any sick contacts. EKG independently interpreted displaying sinus tachycardia, occasional PVCs, P mitrale, rate 107 bpm, QTc 377 MS. CXR independently interpreted displaying no acute cardiopulmonary process troponin 0.057, proBNP 1220, WBC 14.9, Hgb 12.6, 8 CT 37.1, MCV 84, INR 0.9, VBG 7.3 , sodium 130, lactic acid 2.3 NAJMA 97.5 F, MA 108, RR 22, BP 105/77, O2 sat 100% on 3 L nasal cannula ED documentation reviewed. Subjective: 05/18/2024: patient reports of feeling dizzy this morning when he woke up. states positional changes did not make it better or worse. states he does not remember how he got here. Pertinent positives and negatives as discussed above, a complete review of systems was performed and all other systems are negative. Vitals: Signs Reviewed Physical Exam: General: nontoxic, no distress, appears at stated age, mild distress Derm: warm, dry, intact Head: atraumatic, normocephalic, symmetric Eyes: EOMI, anicteric sclera Mouth: no lip lesion, mucus membranes moist Cardiovascular: S1 S2 reg, no murmur, rubs, or gallops Lungs: lung sounds diminished bilaterally, mild expiratory wheezing b/l Abdominal: soft, non-tender to palpataion, no appreciable organomegaly Extremities: no gross muscle atrophy, no edema, no contractures Neuro: Alert, Oriented, CNII-XII grossly intact, gait normal Psych: well appearing, appropriate affect Data Received Today: Pertinent Labs: WBC 10.8, Hgb 11.6 Imaging: n/a Assessment/Plan: Patient is a 78 male with CAD (with stent), COPD, CHF, hyperlipidemia, hypertension, myocardial infarction, bilateral pulmonary embolism, presenting with dyspnea. Active: #. Acute COPD exacerbation Acute CHF exacerbation, less likely proBNP 1220 Echo done in 03/2024 showed normal LV function with EF at 55-60% Chest x-ray independently interpreted displaying no cardiac acute cardiopulmonary process DuoNebs [id number] Prednisone switched to 60 mg IV Solumedrol (day 2 of steroids) Continue with home Symbicort Continue with Spiriva Azithromycin 500 mg p.o. qd (day 2 of 3) Procalcitonin, sputum cultures, Legionella urine antigen pending 3 L nasal cannula keep oxygen 8892% Cepheid 4 Plex pending Cardiac monitoring Pulmonology following #. Orthostatic hypotension #. Dizzyness - check orthostatics q6hr - hold lasix, aldactone, lisinopril - AM cortisol ordered #. NSTEMI, likely type II 0.057 => 0.044 => 0.042 => 0.039 Patient denies chest pain Continue telemetry #. Normocytic anemia No active bleeding Follow-up CBC Chronic: #. CHF with preserved ejection fraction, 55% to 66% holding Aldactone 25 mg PO qd Resume metoprolol 25 mg p.o. twice daily Holding Lasix 20 mg PO BID #. Chronic hyponatremia Sodium 130, at baseline #. Coronary artery disease Continue aspirin 81 mg Continue with simvastatin 80 mg p.o. at bedtime #. Hypertension holding Lisinopril 2.5 mg Resolved: Lactic acidosis F: N/A E: Replete electrolytes as needed N: Heart healthy diet A: Independently ambulatory DVT prophylaxis: Lovenox [address]: pending clinical course Anticipated discharge time: pending clinical course Ross Kwan MD PGY-1 IM Dictation was produced using [email or web address] dictation software. please excuse any grammatical, word or spelling errors. I have seen and evaluated the patient today. Discussed with the resident and agree with the residents finding and plan as documented in the resident's note. Changes highlighted in blue font. Objective - Vital Signs Vital signs: Vital Signs Temp 98.6 F 05/18/24 04:21 Pulse 84 05/18/24 06:05 Resp 18 05/18/24 06:05 BP 105/61 05/18/24 06:05 Pulse Ox 99 05/18/24 06:05 FiO2 Intake & Output 05/17/24 05/17/24 05/18/24 06:59 18:59 06:59 Weight 112.037 kg - Labs CBC & Chem 7: 05/18/24 07:00 05/18/24 07:00 Labs: Abnormal Lab Results - Last 24 Hours (Table) 05/17/24 05/17/24 05/17/24 Range/Units 11:08 11:08 11:08 WBC 14.9 H (3.8-10.6) k/uL Hgb 12.6 L (13.0-17.5) gm/dL Hct 37.1 L (39.0-53.0) % Neutrophils # 12.9 H (1.3-7.7) k/uL APTT 19.3 L (22.0-30.0) sec Sodium 130 L (137-145) mmol/L Chloride 97 L (98-107) mmol/L Glucose 125 H (74-99) mg/dL Plasma Lactic Acid Sandor (0.7-2.0) mmol/L Troponin I (0.000-0.034) ng/mL Total Protein 5.9 L (6.3-8.2) g/dL Albumin 3.4 L (3.5-5.0) g/dL 05/17/24 05/17/24 05/17/24 Range/Units 11:08 11:08 14:05 WBC (3.8-10.6) k/uL Hgb (13.0-17.5) gm/dL Hct (39.0-53.0) % Neutrophils # (1.3-7.7) k/uL APTT (22.0-30.0) sec Sodium (137-145) mmol/L Chloride (98-107) mmol/L Glucose (74-99) mg/dL Plasma Lactic Acid Sandor 2.3 H* (0.7-2.0) mmol/L Troponin I 0.057 H* 0.044 H* (0.000-0.034) ng/mL Total Protein (6.3-8.2) g/dL Albumin (3.5-5.0) g/dL 05/17/24 05/17/24 Range/Units 16:42 20:26 WBC (3.8-10.6) k/uL Hgb (13.0-17.5) gm/dL Hct (39.0-53.0) % Neutrophils # (1.3-7.7) k/uL APTT (22.0-30.0) sec Sodium (137-145) mmol/L Chloride (98-107) mmol/L Glucose (74-99) mg/dL Plasma Lactic Acid Sandor (0.7-2.0) mmol/L Troponin I 0.042 H* 0.039 H* (0.000-0.034) ng/mL Total Protein (6.3-8.2) g/dL Albumin (3.5-5.0) g/dL
[2024-05-18] MEDS: FERROUS SULFATE 325 MG TAB PO SCH (13:05)
[2024-05-19 04:27] VITALS: RESP 18
[2024-05-19 06:46] LABS: Basophils % (A) 0 %; Eosinophils % (A) 0 %; HCT 34.3 % (39.0-53.0); HGB 11.3 gm/dL (13.0-17.5); Lymphocytes # (A) 0.6 k/uL (1.0-4.8); Lymphocytes % (A) 4 %; MCH 28.3 pg (25.0-35.0); MCHC 32.9 g/dL (31.0-37.0); Mean Platelet Volume 6.9; Monocytes # (A) 0.4 k/uL (0-1.0); Monocytes % (A) 3 %; Neutrophils # (A) 13.5 k/uL (1.3-7.7); Neutrophils % (A) 93 %; Platelet Count 230 k/uL (150-450); WBC 14.5 k/uL (3.8-10.6)
[2024-05-19 06:49] LABS: African American GFR (CKD) >90 (>60 ml/min/1.73 sqM); Anion Gap 6 mmol/L; Blood Urea Nitrogen 16 mg/dL (9-20); Carbon Dioxide 29 mmol/L (22-30); Chloride 95 mmol/L (98-107); Glucose 157 mg/dL (74-99); Non-African American GFR(CKD) 88 (>60 ml/min/1.73 sqM); Potassium 4.5 mmol/L (3.5-5.1); Sodium 130 mmol/L (137-145)
[2024-05-19] MEDS: AZITHROMYCIN 500 MG TAB PO SCH (07:56)
[2024-05-19 08:02] VITALS: TEMP 96.3
[2024-05-19 11:39] VITALS: PULSE 82
--- NOTE | 2024-05-19 13:15 | P.PN ---
Subjective Progress Note Date: 05/19/24 Principal diagnosis: Shortness of breath. Patient is a 78-year-old male with past medical history significant for COPD, chronic oxygen dependence, hypertension, hyperlipidemia, PAD, heart failure, among other things. Patient follows in the pulmonary office with Dr. Vargas, for management of his very severe COPD. He has missed his follow up appointment, and has not followed up since. He has an FEV1 from 29% of predicted. Normally, maintained on oxygen 3 L/min nasal cannula at night. He utilizes a combination of Breyna, Spiriva, and albuterol nebs [id number]. He has had multiple hospitalizations since March for COPD and recent COVID 19 illness. Most recently, hospitalized April 25 through April 28 with acute COPD exacerbation. He returned 2 days later for the same. Chest CTA during this time was negative for pulmonary embolism. Return to the emergency department yesterday afternoon complaining of severe shortness of breath and cough. States that his symptoms started yesterday after going outside in the cold to the grocery store. EMS was called and patient was noted to be hypoxic. He normally wears 3 L/min nasal cannula. Endorses a more productive cough with yellow sputum production. Denies any fevers, chills, hemoptysis, chest pain. Denies any sick contacts. He lives alone, and states the only place he has been is to the grocery store. Workup in the emergency department includes a chest x-ray which does not show any acute cardiopulmonary process. Viral screen negative for influenza A/B, RSV, COVID. CBC remarkable for leukocytosis with a WBC count of 14.9, hemoglobin 12.6, hematocrit 37, platelets 221. CMP: Sodium 130, potassium 4.4, chloride 97, serum bicarb 26, BUN 11, creatinine 0.69, glucose 125. Lactic nonelevated. LFTs unremarkable. Serial troponins were elevated and are trending down; 0.057, 0.044, 0.042, 0.039 respectively. NT proBNP 1220. EKG done on arrival: Sinus tachycardia, rate 107 bpm, minimal ST depressions in 2, 3, aVF. VBG has a pH of 7.39 and pCO2 of 45. Patient was empirically sta a zithromycin in the ED. Also started on bronchodilators, Symbicort Hailer, Spiriva, and IV Solu-Medrol. Patient is currently being evaluated in the emergency department, room 26. He is lying on his right side on the stretcher. He is dyspneic and appears in some respiratory distress. I did help him up to the bedside table. He is now tripoding. SpO2 on bedside monitor reading 100% on his baseline 3 L/min nasal cannula. No signs of CO2 narcosis. Respiratory therapy is going to come care of him a DuoNeb treatment. Progress note dated May 19, 2024. 78-year-old male with a known history of COPD. The patient was admitted with a diagnosis of COPD exacerbation. Please see our consultation from yesterday. The patient is currently on room air. He is not receiving any IV fluids. The patient refuses his oxygen today. The patient comes into the hospital frequently, to be admitted for COPD, and is up being discharged, and not following up, or taking his medications as prescribed. He wants to go home today as well. Currently, white count 14.5, hemoglobin 11.3, hematocrit 34.3, and platelet count is normal. Sodium 130, potassium 4.5, chlorides 95, CO2 29, BUN 16, creatinine 0.79. Cortisol level 6.5. Objective - Vital Signs Vital signs: Vital Signs Temp 96.3 F L 05/19/24 08:00 Pulse 82 05/19/24 11:38 Resp 18 05/19/24 11:38 BP 134/77 05/19/24 11:38 Pulse Ox 97 05/19/24 11:38 FiO2 Intake & Output 05/18/24 05/19/24 05/19/24 18:59 06:59 18:59 Intake Total 600 720 Output Total 850 100 Balance -250 -100 720 Weight 112 kg Intake: Oral 600 720 Output: Urine 850 100 Other: Voiding Method Toilet Toilet Urinal Urinal # Voids 1 - Exam No acute distress, oriented 3. Currently on room air. Sitting at the edge of the bed. HEENT examination is grossly unremarkable. Mucous membranes are moist. No oral lesions. Neck supple. Full range of motion. No adenopathy thyromegaly or neck vein distention. Cardiovascular examination reveals regular rhythm rate. S1-S2 normal. No S3 or S4. No discernible murmur noted. Lungs reveal mostly clear bilateral breath sounds. Minimal rhonchi. Breath sounds are equal but diminished throughout. No crackles. Abdomen soft bowel sounds are heard. No masses or tenderness. Extremities are intact. No cyanosis clubbing or edema. Skin is without rash or lesion. Neurologic examination is brief but nonfocal. - Labs CBC & Chem 7: 05/19/24 06:00 05/19/24 06:00 Labs: Abnormal Lab Results - Last 24 Hours (Table) 05/19/24 05/19/24 Range/Units 06:00 06:00 WBC 14.5 H (3.8-10.6) k/uL RBC 4.00 L (4.30-5.90) m/uL Hgb 11.3 L (13.0-17.5) gm/dL Hct 34.3 L (39.0-53.0) % Neutrophils # 13.5 H (1.3-7.7) k/uL Lymphocytes # 0.6 L (1.0-4.8) k/uL Sodium 130 L (137-145) mmol/L Chloride 95 L (98-107) mmol/L Glucose 157 H (74-99) mg/dL Assessment and Plan Assessment: Acute COPD exacerbation. Acute on top of chronic hypoxemic respiratory failure. Leukocytosis. Elevated troponins, type II mechanism. Recent hospitalization for acute COVID infection. History of hyperlipidemia. History of hypertension. History of CAD. History of peripheral arterial disease. Very severe chronic obstructive pulmonary disease, with an FEV1 29% of predicted. Chronic hypoxemic respiratory failure, secondary to above. Former tobacco dependence, quit smoking over 7 years ago. Obesity, with a BMI of 40.3 kg/m. Plan: Plan dated May 19, 2024. According to the primary hospital service, the patient wants to be discharged. Unfortunately, the patient goes home, and is noncompliant with medications, and oftentimes does not continue or picks up his prednisone. Labs, x-rays, and medications are reviewed. We will continue to follow should the patient not be discharged. No additional recommendations are made. The patient is pretty much back to baseline in my opinion. All labs, x-rays, and medications have been reviewed. Time with Patient: Less than 30
[2024-05-19 13:38] VITALS: BP 129/68
--- NOTE | 2024-05-19 14:15 | P.DS ---
Providers Date of admission: 05/18/24 10:12 Discharge Diagnosis: Acute COPD exacerbation Orthostatic hypotension Dizziness Type II NSTEMI Normocytic anemia HFpEF, EF 5566% not in exacerbation Chronic hyponatremia CAD Hypertension Lactic acidosis Hospital course: Patient is a 78 male with CAD (with stent), COPD (3 L home O2 at night only), CHF (EF 55-60%), hyperlipidemia, hypertension, myocardial infarction, bilateral pulmonary embolism, presenting with dyspnea. Patient states he was short of breath last night and was made worse this morning. States that it woke him up from his sleep last night. Patient endorses cough with yellow phlegm. Denies any alleviating or exacerbating factors for his dyspnea. Denies orthopnea. States that he has been hospitalized for something similar. Patient denies any fever, chills, night sweats, chest pain, abdominal pain, urinary symptoms. Denies any sick contacts. EKG independently interpreted displaying sinus tachycardia, occasional PVCs, P mitrale, rate 107 bpm, QTc 377 MS. CXR independently interpreted displaying no acute cardiopulmonary process troponin 0.057, proBNP 1220, WBC 14.9, Hgb 12.6, 8 CT 37.1, MCV 84, INR 0.9, VBG 7.3 /, sodium 130, lactic acid 2.3, procalcitonin NAJMA 97.5 F, DC 108, RR 22, BP 105/77, O2 sat 100% on 3 L nasal cannula Cepheid 4 panel was negative, urine Legionella negative Patient was admitted to internal medicine service for further evaluation of acute COPD exacerbation. Pulmonology was consulted. While here patient was on the proper breathing treatment for his acute exacerbation. Patient reported of feeling dizzy when going from a laying position to a seated position. He was subsequently found to be orthostatic positive. We decided to hold his Lasix Aldactone and lisinopril. A.m. cortisol did not show any overt adrenal insufficiency. Repeat orthostatics were negative. Patient now breathing on room air, no signs of wheezing or respiratory distress. He was cleared by the aluminum boat assembly supervisor. On discharge we will not resume his Aldactone and lisinopril. His Lasix was resumed. He is to finish off his 5-day course of oral steroids. Patient is to follow-up with his PCP and aluminum boat assembly supervisor. He being discharged home. Patient has had high risk for readmission. Also provided with home care through [place]. Vital signs reviewed and stable. Physical examination: Vital signs reviewed General: non toxic, no distress, appears at stated age, normal weight Derm: no unusual rashes/lesions, warm Head: atraumatic, normocephalic, symmetric Eyes: EOMI, anicteric sclera, pupils equal round reactive to light ENT: Nose and ears atraumatic Neck: No cervical lymphadenopathy, trachea midline, supple Mouth: no lip lesion, mucus membranes moist Cardiovascular: S1S2 reg, no murmur, positive dorsalis pedis pulse bilateral, no edema Lungs: Diminished lung sounds bilaterally Abdominal: soft, nontender to palpation, no guarding Ext: muscle strength 5 out of 5 in all 4 extremities grossly, no gross muscle atrophy Neuro: CN II-XI grossly intact, no gross focal neuro deficits Psych: Alert, oriented to person, place, and time A total of greather than 30 minutes of time were spent preparing this complex discharge summary. Patient was discharge on May 19, 2024 at 1:58 PM Ross Kwan MD PGY-1 IM Dictation was produced using [employer] dictation software. please excuse any grammatical, word or spelling errors. I have seen and evaluated the patient today. Discussed with the resident and agree with the residents finding and plan as documented in the resident's note. Changes highlighted in blue font. Expected date of discharge: 05/19/24 Attending physician: Aric Hyatt Consults: 05/17/24 12:52 Consult Physician Routine Consulting Provider: Ayad Goddard Consult Reason/Comments: copd exacerbaytio Do you want consulting provider notified?: Yes Primary care physician: [facility] Patient Condition at Discharge: Fair Plan - Discharge Summary Discharge Rx Participant: No New Discharge Prescriptions: New predniSONE [Deltasone] 40 mg PO DAILY #4 tab Continue Aspirin EC [Ecotrin Low Dose] 81 mg PO DAILY Budesonide/Formoterol Fumarate [Symbicort 160-4.5 Mcg Inhaler] 2 puff INHALATION RT-BID Ipratropium/Albuterol Sulfate [Combivent Respimat Inhaler] 1 puff INHALATION RT-QID Metoprolol Tartrate [Lopressor] 25 mg PO BID Clopidogrel Bisulfate [Plavix] 75 mg PO DAILY Tiotropium 18 Mcg/Puff [Spiriva] 2 puff INHALATION RT-DAILY Simvastatin [Zocor] 40 mg PO HS Albuterol Nebulized [Ventolin Nebulized] 2.5 mg INHALATION RT-QID Loratadine [Claritin] 10 mg PO DAILY Albuterol Inhaler [Ventolin Hfa Inhaler] 2 puff INHALATION RT-TID PRN PRN Reason: Shortness Of Breath Cholecalciferol [Vitamin D3 (25 Mcg = 1000 Iu)] 25 mcg PO BID Furosemide [Lasix] 20 mg PO DAILY Ferrous Sulfate [Iron (65 MG Elemental)] 325 mg PO W/LUNCH Folic Acid 1 mg PO DAILY Vitamin B-12 50mcg 50 mcg PO DAILY Discontinued lisinopriL [Zestril] 2.5 mg PO HS Spironolactone 25 mg PO DAILY predniSONE [Deltasone] See Taper PO DIRECTED Discharge Medication List Aspirin EC [Ecotrin Low Dose] 81 mg PO DAILY 06/22/18 [History] Budesonide/Formoterol Fumarate [Symbicort 160-4.5 Mcg Inhaler] 2 puff INHALATION RT-BID 06/22/18 [History] Ipratropium/Albuterol Sulfate [Combivent Respimat Inhaler] 1 puff INHALATION RT- QID 06/22/18 [History] Metoprolol Tartrate [Lopressor] 25 mg PO BID 06/22/18 [History] Clopidogrel Bisulfate [Plavix] 75 mg PO DAILY 07/01/18 [History] Albuterol Inhaler [Ventolin Hfa Inhaler] 2 puff INHALATION RT-TID PRN 12/07/19 [History] Albuterol Nebulized [Ventolin Nebulized] 2.5 mg INHALATION RT-QID 12/07/19 [History] Loratadine [Claritin] 10 mg PO DAILY 12/07/19 [History] Simvastatin [Zocor] 40 mg PO HS 12/07/19 [History] Tiotropium 18 Mcg/Puff [Spiriva] 2 puff INHALATION RT-DAILY 12/07/19 [History] Cholecalciferol [Vitamin D3 (25 Mcg = 1000 Iu)] 25 mcg PO BID 03/17/24 [History] Ferrous Sulfate [Iron (65 MG Elemental)] 325 mg PO W/LUNCH 04/06/24 [History] Folic Acid 1 mg PO DAILY 04/06/24 [History] Vitamin B-12 50mcg 50 mcg PO DAILY 04/06/24 [History] Furosemide [Lasix] 20 mg PO DAILY 04/16/24 [History] predniSONE [Deltasone] 40 mg PO DAILY #4 tab 05/19/24 [Rx] Follow up Appointment(s)/Referral(s): [facility] [Primary Care Provider] - 1-2 days Ayad Goddard DO [Doctor of Osteopathic Medicine] - 1 Week Patient Instructions/Handouts: COPD (Chronic Obstructive Pulmonary Disease) (DC) Activity/Diet/Wound Care/Special Instructions: Please follow up with PCP and pulmonology. Discharge/Stand Alone Forms: Who Do I Call?, Community Resources, Outpatient Counseling, Personal Tablet Technician Discharge Disposition: HOME SELF-CARE
== END 2024-05-19 17:06 | disposition home or self-care (01) | DRG 190 ==
LOC: EC 10:46 → 3SCARD 12:53 → OBSVTOIN 05-18 10:12 → 3SCARD 05-18 19:52
PROVIDERS: ADMIT Student in an Organized Health Care Education/Training Program; ATTEND Student in an Organized Health Care Education/Training Program
DX: J44.1 Chronic obstructive pulmonary disease with (acute) exacerbation (principal); I21.A1 Myocardial infarction type 2; E87.1 Hypo-osmolality and hyponatremia; E87.20 Acidosis, unspecified; I11.0 Hypertensive heart disease with heart failure; E66.9 Obesity, unspecified; F32.A Depression, unspecified; I73.9 Peripheral vascular disease, unspecified; D64.9 Anemia, unspecified; I50.32 Chronic diastolic (congestive) heart failure; Z68.41 Body mass index [BMI] 40.0-44.9, adult; J96.11 Chronic respiratory failure with hypoxia; D72.829 Elevated white blood cell count, unspecified; E78.5 Hyperlipidemia, unspecified; F40.240 Claustrophobia; F43.10 Post-traumatic stress disorder, unspecified; I25.10 Atherosclerotic heart disease of native coronary artery without angina pectoris; I25.2 Old myocardial infarction; I49.3 Ventricular premature depolarization; Z11.52 Encounter for screening for COVID-19; I95.1 Orthostatic hypotension; Z79.02 Long term (current) use of antithrombotics/antiplatelets; Z79.51 Long term (current) use of inhaled steroids; Z79.899 Other long term (current) drug therapy; Z82.49 Family history of ischemic heart disease and other diseases of the circulatory system; Z86.0100 Personal history of colon polyps, unspecified; Z86.16 Personal history of COVID-19; Z86.711 Personal history of pulmonary embolism; Z87.442 Personal history of urinary calculi; Z87.891 Personal history of nicotine dependence; Z95.5 Presence of coronary angioplasty implant and graft; Z99.81 Dependence on supplemental oxygen; Z88.1 Allergy status to other antibiotic agents; Z88.8 Allergy status to other drugs, medicaments and biological substances; Z79.82 Long term (current) use of aspirin
CPT/HCPCS: 36415; 71046; 80048; 80053; 82533; 82803; 83605; 83735; 83880; 84145; 84484; 85025; 85610; 85730; 87070; 87205; 87449; 87636; 93005; 94640; 96365; 96366; 96375; 96376; 99285

== ENCOUNTER 2024-05-29 13:37 | Inpatient (IN) | payer OTHER, MEDICARE ==
--- NOTE | 2024-05-29 14:34 | ED ---
General Adult HPI - General Chief complaint: Extremity Problem,Nontraumatic Stated complaint: numbness in feet Time Seen by Provider: 05/29/24 13:55 Source: patient, EMS, RN notes reviewed, old records reviewed Mode of arrival: EMS - History of Present Illness Initial comments: This is a 78-year-old male who presents to the emergency department the past medical history significant for congestive heart failure and high blood pressure and COPD history. Patient states he quit smoking Boutt 16 years ago. Patient comes in today because he states he woke up this morning both his feet had decreased sensation. Patient states he can feel in his feet but considerably decreased and it made it very difficult for him to walk and he almost fell this morning. Patient states he is also noticing increased shortness of breath. Patient does not know if the edema in his legs is worse than normal. Patient denies any chest pain or palpitations. Patient Nuys any recent fever chills or cough or Patient denies any abdominal pain patient Nuys any back pain patient denies any recent trauma. - Related Data Home Medications Medication Instructions Recorded Confirmed Aspirin EC [Ecotrin Low Dose] 81 mg PO DAILY 06/22/18 05/17/24 Budesonide/Formoterol Fumarate 2 puff INHALATION RT-BID 06/22/18 05/17/24 [Symbicort 160-4.5 Mcg Inhaler] Ipratropium/Albuterol Sulfate 1 puff INHALATION RT-QID 06/22/18 05/17/24 [Combivent Respimat Inhaler] Metoprolol Tartrate [Lopressor] 25 mg PO BID 06/22/18 05/17/24 Clopidogrel Bisulfate [Plavix] 75 mg PO DAILY 07/01/18 05/17/24 Albuterol Inhaler [Ventolin Hfa 2 puff INHALATION RT-TID PRN 12/07/19 05/17/24 Inhaler] Albuterol Nebulized [Ventolin 2.5 mg INHALATION RT-QID 12/07/19 05/17/24 Nebulized] Loratadine [Claritin] 10 mg PO DAILY 12/07/19 05/17/24 Simvastatin [Zocor] 40 mg PO HS 12/07/19 05/17/24 Tiotropium 18 Mcg/Puff [Spiriva] 2 puff INHALATION RT-DAILY 12/07/19 05/17/24 Cholecalciferol [Vitamin D3 (25 25 mcg PO BID 03/17/24 05/17/24 Mcg = 1000 Iu)] Ferrous Sulfate [Iron (65 MG 325 mg PO W/LUNCH 04/06/24 05/17/24 Elemental)] Folic Acid 1 mg PO DAILY 04/06/24 05/17/24 Vitamin B-12 50mcg 50 mcg PO DAILY 04/06/24 05/17/24 Furosemide [Lasix] 20 mg PO DAILY 04/16/24 05/17/24 Previous Rx's Medication Instructions Recorded predniSONE [Deltasone] 40 mg PO DAILY #4 tab 05/19/24 Allergies Allergy/AdvReac Type Severity Reaction Status Date / Time fluticasone AdvReac Nausea Verified 05/29/24 13:44 [From [facility]ix[facility] Inhub] levofloxacin [From Levaquin] AdvReac TENDON PAIN Verified 05/29/24 13:44 salmeterol AdvReac Nausea Verified 05/29/24 13:44 [From Wixela Inhub] Review of Systems ROS Statement: Those systems with pertinent positive or pertinent negative responses have been documented in the HPI. ROS Other: All systems not noted in ROS Statement are negative. Past Medical History Past Medical History: Coronary Artery Disease (CAD), COPD, GERD/Reflux, Hyperlipidemia, Hypertension, Myocardial Infarction (CT), Pulmonary Embolus (PE), Renal Disease Additional Past Medical History / Comment(s): Home oxygen prn and pt states he usually wears at night at 3 liters, bilateral PEs in 2003, history ETOH abuse-pt states he has never had withdrawal symptoms, chronic low back pain/sciatica/spurs/disc disease much improved after back injections, past urinary retention, diverticulitis/benign colon polyps removed, nephrolithiasis- passed stones on his own, shingelles 16 years ago-R shoulder. Last Myocardial Infarction Date:: 2010 History of Any Multi-Drug Resistant Organisms: None Reported Past Surgical History: Heart Catheterization With Stent Additional Past Surgical History / Comment(s): Back injections for pain, piece of metal removed from rt eye, EGD, colonoscopy Past Anesthesia/Blood Transfusion Reactions: No Reported Reaction Additional Past Anesthesia/Blood Transfusion Reaction / Comment(s): claustrophobia Date of Last Stent Placement:: 2010 Past Psychological History: Anxiety, Depression, PTSD Smoking Status: Former smoker Past Alcohol Use History: None Reported Past Drug Use History: None Reported - Past Family History Mother Family Medical History: Cancer Additional Family Medical History / Comment(s): from breast cancer at age 53 Father Family Medical History: Coronary Artery Disease (CAD), Myocardial Infarction (CT) Additional Family Medical History / Comment(s): 4 mi's/CABG. at at age 72 General Exam - General Exam Comments Initial Comments: GENERAL: Patient is well-developed and well-nourished. Patient is nontoxic and well- hydrated and is in mild distress. ENT: Neck is soft and supple. No significant lymphadenopathy is noted. Oropharynx is clear. Moist mucous membranes. Neck has full range of motion without eliciting any pain. EYES: The sclera were anicteric and conjunctiva were pink and moist. Extraocular movements were intact and pupils were equal round and reactive to light. Eyelids were unremarkable. PULMONARY: Unlabored respirations. Good breath sounds bilaterally. No audible rales rhonchi or wheezing was noted. CARDIOVASCULAR: There is a regular rate and rhythm without any murmurs gallops or rubs. ABDOMEN: Soft and nontender with normal bowel sounds. SKIN: Skin is clear with no lesions or rashes and otherwise unremarkable. NEUROLOGIC: Patient is alert and oriented x3. Cranial nerves II through XII are grossly intact. Motor is intact in all 4 extremities. Normal speech, volume and content. Symmetrical smile. Patient's sensation to the feet is decreased but he does feel light touch on both feet in all areas. MUSCULOSKELETAL: Normal extremities with adequate strength and full range of motion. 1+ edema on the right 2+ edema on the left patient has no calf pain LYMPHATICS: No significant lymphadenopathy is noted PSYCHIATRIC: Normal psychiatric evaluation. Course Vital Signs 05/29/24 05/29/24 05/29/24 13:40 14:02 14:27 Temperature 98.7 F Pulse Rate 61 110 H 99 Respiratory 20 20 24 Rate Blood Pressure 115/66 114/67 123/62 O2 Sat by Pulse 96 97 98 Oximetry Medical Decision Making - Medical Decision Making EKG is interpreted by myself EKG shows sinus tachycardia with occasional PAC at 108 bpm PA 146 QRS is 97 QT interval 341 QTc is 404. Patient's EKG shows no ST segment elevation or depression Was pt. sent in by a medical professional or institution (, PA, VOICE INTERCEPT TECHNICIAN, urgent care, hospital, or fdc...) When possible be specific @ -No Did you speak to anyone other than the patient for history (EMS, parent, family, police, friend...)? What history was obtained from this source @ -No Did you review nursing and triage notes (agree or disagree)? Why? @ -I reviewed and agree with nursing and triage notes Were old charts reviewed (outside hosp., previous admission, EMS record, old EKG, old radiological studies, urgent care reports/EKG's, fdc records)? Report findings @ -No old charts were reviewed Differential Diagnosis? @ -Differential Dyspnea: Coronary syndrome, arrhythmia, tamponade, asthma, COPD, pulmonary embolism, pneumonia, pneumothorax, pulmonary effusion, anaphylaxis, diabetic ketoacidosis, flailed chest, pulmonary contusion, diaphragmatic rupture, anemia, neuromuscular, this is not meant to be an all-inclusive list. Neuropathy, arterial occlusion, DVT, this is not an all-inclusive list EKG interpreted by me (3pts min.). @ -As above X-rays interpreted by me (1pt min.). @ -Chest x-ray shows pneumonia in the left lower lobe CT interpreted by me (1pt min.). @ -None done U/S interpreted by me (1pt. min.). @ -None done What testing was considered but not performed or refused? (CT, X-rays, U/S, labs)? Why? @ -None What meds were considered but not given or refused? Why? @ -None Did you discuss the management of the patient with other professionals (professionals i.e. , PA, VOICE INTERCEPT TECHNICIAN, lab, RT, psych nurse, sr. social media & mobile manager, email campaign manager, teacher, field artillery officer, caser)? Give summary @ -I spoke with [facility] he agreed to admit the patient admit the patient wrote admitting orders Was smoking cessation discussed for >3mins.? @ -No Was critical care preformed (if so, how long)? @ -No Were there social determinants of health that impacted care today? How? (Homelessness, low income, unemployed, alcoholism, drug addiction, transportation, low edu. Level, literacy, decrease access to med. care, group home, rehab)? @ -No Was there de-escalation of care discussed even if they declined (Discuss DNR or withdrawal of care, Hospice)? DNR status @ -No What co-morbidities impacted this encounter? (DM, HTN, Smoking, COPD, CAD, Cancer, CVA, ARF, Chemo, Hep., AIDS, mental health diagnosis, sleep apnea, morbid obesity)? @ -None Was patient admitted / discharged? Hospital course, mention meds given and route, prescriptions, significant lab abnormalities, going to OR and other p ertinent info. @ -Patient received antibiotics for the pneumonia. Patient will be admitted to [facility]. Nursing was able to get pulses bilaterally 1+ Undiagnosed new problem with uncertain prognosis? @ -No Drug Therapy requiring intensive monitoring for toxicity (Heparin, Nitro, Insulin, Cardizem)? @ -No Were any procedures done? @ -No Diagnosis/symptom? @ -Pneumonia Acute, or Chronic, or Acute on Chronic? @ -Acute Uncomplicated (without systemic symptoms) or Complicated (systemic symptoms)? @ -Complicated Side effects of treatment? @ -No Exacerbation, Progression, or Severe Exacerbation? @ -No Poses a threat to life or bodily function? How? (Chest pain, USA, CT, pneumonia, PE, COPD, DKA, ARF, appy, cholecystitis, CVA, Diverticulitis, Homicidal, Suicidal, threat to staff... and all critical care pts) @ -Yes this can lead to sepsis and endorgan dysfunction. Diagnosis/symptom? @ -Elevated troponin Acute, or Chronic, or Acute on Chronic? @ -Acute Uncomplicated (without systemic symptoms) or Complicated (systemic symptoms)? @ -Complicated Side effects of treatment? @ -None Exacerbation, Progression, or Severe Exacerbation] @ -No Poses a threat to life or bodily function? @ -No - Lab Data Result diagrams: 05/29/24 14:48 05/29/24 14:48 Lab Results 05/29/24 05/29/24 05/29/24 Range/Units 14:48 14:48 14:48 WBC 13.7 H (3.8-10.6) k/uL RBC 4.19 L (4.30-5.90) m/uL Hgb 11.9 L (13.0-17.5) gm/dL Hct 35.5 L (39.0-53.0) % MCV 84.8 (80.0-100.0) fL MCH 28.4 (25.0-35.0) pg MCHC 33.4 (31.0-37.0) g/dL RDW 14.8 (11.5-15.5) % Plt Count 335 (150-450) k/uL MPV 6.8 Neutrophils % 82 % Lymphocytes % 9 % Monocytes % 7 % Eosinophils % 0 % Basophils % 1 % Neutrophils # 11.2 H (1.3-7.7) k/uL Lymphocytes # 1.3 (1.0-4.8) k/uL Monocytes # 0.9 (0-1.0) k/uL Eosinophils # 0.0 (0-0.7) k/uL Basophils # 0.1 (0-0.2) k/uL PT 10.2 (10.0-12.5) sec INR 0.9 (<1.2) APTT 20.4 L (22.0-30.0) sec Sodium 131 L (137-145) mmol/L Potassium 4.4 (3.5-5.1) mmol/L Chloride 91 L (98-107) mmol/L Carbon Dioxide 33 H (22-30) mmol/L Anion Gap 7 mmol/L BUN 14 (9-20) mg/dL Creatinine 0.73 (0.66-1.25) mg/dL Est GFR (CKD-EPI)AfAm >90 (>60 ml/min/1.73 sqM) Est GFR (CKD-EPI)NonAf >90 (>60 ml/min/1.73 sqM) Glucose 115 H (74-99) mg/dL Plasma Lactic Acid Sandor (0.7-2.0) mmol/L Calcium 8.7 (8.4-10.2) mg/dL Magnesium 1.5 L (1.6-2.3) mg/dL Total Bilirubin 0.7 (0.2-1.3) mg/dL AST 19 (17-59) U/L ALT 23 (4-49) U/L Alkaline Phosphatase 61 (38-126) U/L Troponin I (0.000-0.034) ng/mL NT-Pro-B Natriuret Pep 827 pg/mL Total Protein 5.5 L (6.3-8.2) g/dL Albumin 3.1 L (3.5-5.0) g/dL 05/29/24 05/29/24 Range/Units 14:48 14:48 WBC (3.8-10.6) k/uL RBC (4.30-5.90) m/uL Hgb (13.0-17.5) gm/dL Hct (39.0-53.0) % MCV (80.0-100.0) fL MCH (25.0-35.0) pg MCHC (31.0-37.0) g/dL RDW (11.5-15.5) % Plt Count (150-450) k/uL MPV Neutrophils % % Lymphocytes % % Monocytes % % Eosinophils % % Basophils % % Neutrophils # (1.3-7.7) k/uL Lymphocytes # (1.0-4.8) k/uL Monocytes # (0-1.0) k/uL Eosinophils # (0-0.7) k/uL Basophils # (0-0.2) k/uL PT (10.0-12.5) sec INR (<1.2) APTT (22.0-30.0) sec Sodium (137-145) mmol/L Potassium (3.5-5.1) mmol/L Chloride (98-107) mmol/L Carbon Dioxide (22-30) mmol/L Anion Gap mmol/L BUN (9-20) mg/dL Creatinine (0.66-1.25) mg/dL Est GFR (CKD-EPI)AfAm (>60 ml/min/1.73 sqM) Est GFR (CKD-EPI)NonAf (>60 ml/min/1.73 sqM) Glucose (74-99) mg/dL Plasma Lactic Acid Sandor 3.2 H* (0.7-2.0) mmol/L Calcium (8.4-10.2) mg/dL Magnesium (1.6-2.3) mg/dL Total Bilirubin (0.2-1.3) mg/dL AST (17-59) U/L ALT (4-49) U/L Alkaline Phosphatase (38-126) U/L Troponin I 0.036 H* (0.000-0.034) ng/mL NT-Pro-B Natriuret Pep pg/mL Total Protein (6.3-8.2) g/dL Albumin (3.5-5.0) g/dL Disposition Clinical Impression: Pneumonia, Elevated troponin, Hyponatremia Disposition: ADMITTED IP TO THIS HOSP Referrals: [facility] [REFERRING] - 1-2 days Time of Disposition: 15:55
[2024-05-29 15:09] LABS: Basophils # (A) 0.1 k/uL (0-0.2); Basophils % (A) 1 %; Eosinophils % (A) 0 %; HCT 35.5 % (39.0-53.0); HGB 11.9 gm/dL (13.0-17.5); Lymphocytes # (A) 1.3 k/uL (1.0-4.8); Lymphocytes % (A) 9 %; MCH 28.4 pg (25.0-35.0); MCHC 33.4 g/dL (31.0-37.0); MCV 84.8 fL (80.0-100.0); Mean Platelet Volume 6.8; Monocytes # (A) 0.9 k/uL (0-1.0); Monocytes % (A) 7 %; Neutrophils # (A) 11.2 k/uL (1.3-7.7); Neutrophils % (A) 82 %; Platelet Count 335 k/uL (150-450); RBC 4.19 m/uL (4.30-5.90); RDW 14.8 % (11.5-15.5); WBC 13.7 k/uL (3.8-10.6)
[2024-05-29 15:29] LABS: ALT 23 U/L (4-49); AST 19 U/L (17-59); African American GFR (CKD) >90 (>60 ml/min/1.73 sqM); Albumin 3.1 g/dL (3.5-5.0); Alkaline Phosphatase 61 U/L (38-126); Anion Gap 7 mmol/L; Blood Urea Nitrogen 14 mg/dL (9-20); Calcium 8.7 mg/dL (8.4-10.2); Carbon Dioxide 33 mmol/L (22-30); Chloride 91 mmol/L (98-107); Glucose 115 mg/dL (74-99); Magnesium 1.5 mg/dL (1.6-2.3); Non-African American GFR(CKD) >90 (>60 ml/min/1.73 sqM); Potassium 4.4 mmol/L (3.5-5.1); Sodium 131 mmol/L (137-145); Total Bilirubin 0.7 mg/dL (0.2-1.3); Total Protein 5.5 g/dL (6.3-8.2)
[2024-05-29 15:30] LABS: INR 0.9 (<1.2); Prothrombin Time 10.2 sec (10.0-12.5)
--- NOTE | 2024-05-29 15:31 | XR ---
EXAMINATION TYPE: XR chest 2V DATE OF EXAM: 05/29/2024 3:27 PM COMPARISON: Prior chest radiograph, most recent dated 05/17/2024. CLINICAL INDICATION: Male, 78 years old with history of difficulty breathing; [facility] TECHNIQUE: XR chest 2V Frontal and lateral views of the chest. FINDINGS: Stable cardiac silhouette. Patchy infiltrative opacities at the left lung base suspicious for pneumonia. No definite sizable ple ural effusion. No pneumothorax. Ill-defined acute osseous abnormality. Asymmetric elevation of the ri ght hemidiaphragm. IMPRESSION: Patchy infiltrative opacities at the left lung base suspicious for pneumonia. [facility], , 05/29/2024 3:28 PM
[2024-05-29 15:35] LABS: NT-Pro-B-Type Natriuretic Pept 827 pg/mL
[2024-05-29 15:55] LABS: Partial Thromboplastin Time 20.4 sec (22.0-30.0)
[2024-05-29] MEDS: FUROSEMIDE 10 MG/ML 4 ML VIAL IV STA (16:06)
[2024-05-29] MEDS ORDERED: PNEUMONIA PROTOCOL UTILIZED 1 EACH MISC PO PRN (16:08)
[2024-05-29] MEDS: cefTRIAXone IN SWFI 1,000 MG/10 ML SYRINGE IVP STA (16:08)
[2024-05-29] MEDS: AZITHROMYCIN 500 MG in SODIUM CHLORIDE 0.9% 250 ML IVPB STA (16:12)
--- NOTE | 2024-05-29 16:33 | CT ---
EXAMINATION TYPE: CT angio abd aorta w/Runoff DATE OF EXAM: 05/29/2024 3:56 PM COMPARISON: Previous CT abdomen/pelvis of the 1899 CLINICAL INDICATION: Male, 78 years old with history of Unable to obtain pulses; PHH, Discoloration t o feet, bilateral feet numbness since last night, unable to obtain pulse TECHNIQUE: Multiple thin slice sub-millimeter images were obtained after administration of contrast. 3-D reconstructed images and maximum intensity projection images were obtained. CT angio abd aorta w /Runoff CT Contrast: Contrast used:100 mL of Isovue 370 without and with IV Contrast, CT DLP: 2832.8 mGycm, Automated exposure control for dose reduction was used. FINDINGS: Nonvascular: Partially visualized cardia megaly. Patchy consolidative opacities in the left lower lobe. Liver to be unremarkable. Nodularity of the extrahepatic surface contour. Portal veins are patent. Gallbladder unremarkable. Calcified splenic granulomas. No adrenal nodule. S pleen otherwise normal in size and morphology. Pancreas unremarkable. No abnormal biliary ductal dila tation. Bilateral renal cysts. No hydronephrosis or right ureter. No evidence of nephrolithiasis. No significant free fluid or free air in the abdomen/pelvis. Diffuse colonic diverticulosis without a cute diverticulitis. No evidence of small bowel obstruction. Appendix unremarkable. Urinary bladder u nremarkable. Prostate gland is within normal limits for size given patient's age. No pathologic retro peritoneal or mesenteric lymphadenopathy. Vascular: Diffuse mixed calcified obstructive disease of the abdominal aorta with fusiform partially thrombosed mild aneurysm of the infrarenal portion measuring 3.0 x 2.9 cm. Moderate stenosis of the proximal ce liac artery origin due to dense calcified plaque. Mild stenosis of the proximal SMA due to calcified plaque. Bilateral renal arteries are grossly patent. Short segment complete occlusion of the proximal KIAN with reconstitution more distally. Approximately 70% stenosis of the proximal right external iliac artery due to a mixed calcified plaqu e. Proximally 60-70% stenosis of the left external iliac artery due to prominent calcified plaque. Bi lateral common iliac arteries without flow-limiting stenosis. No flow limiting stenosis of the bilate ral common femoral arteries. Approximately a 60-70% stenosis of the mid right superficial femoral art valerie due to calcified plaque. 50-60% stenosis of the left proximal and mid superficial femoral artery due to calcified vessels with plaque. Moderate stenosis of the right popliteal artery due to mixed L5 plaque. Left popliteal artery grossly patent. There are degrees of moderate stenosis involving the b ilateral anterior tibial, posterior tibial and peroneal arteries due to discussed by plaque. 2 vessel right lower extremity runoff at the level of the right ankle with likely chronic occlusion of the pe roneal artery. Diminutive flow seen in the dorsalis pedis artery of the right foot. Two-vessel left l ower extremity runoff to the level of the left ankle with complete occlusion of the distal peroneal a rtery. Diminutive flow within the left dorsalis pedis artery. IMPRESSION: 1. No convincing evidence of acute vascular occlusion/thrombosis. 2. Extensive atherosclerotic disease involving abdominal aorta and lower extremity vasculature with varying degrees of chronic narrowing as described above. Findings are most pronounced in the right ex ternal iliac and right superficial femoral arteries there is approximately 70% stenosis. 3. Two-vessel bilateral lower extremity runoff at the level of the ankles with likely chronically occ luded peroneal arteries. 4. Diminutive flow in the bilateral dorsalis pedis arteries in the feet. Vascular surgery consultatio n would be recommended if clinically warranted. 5. Patchy left lower lobe consolidative opacities suspicious for pneumonia. 6. Partially thrombosed mild fusiform infrarenal abdominal aortic aneurysm. [facility], , 05/29/2024 4:31 PM
[2024-05-29 17:17] LABS: Influenza A Not Detected (Not Detectd); Influenza B Not Detected (Not Detectd); RSV Not Detected (Not Detectd)
[2024-05-29] MEDS: MAGNESIUM SULFATE-D5W PMX 1 GM in DEXTROSE/WATER 1 100ML.BAG IVPB SCH (17:27)
[2024-05-29] MEDS: INSULIN ASPART (NovoLOG) 100 UNIT/ML VIAL SQ SCH (17:28)
[2024-05-29 17:29] LABS: Glucose,Whole Blood 115 mg/dL (70-110)
[2024-05-29] MEDS ORDERED: ALBUTEROL NEBULIZED 2.5 MG/3 ML INHALATION PRN (17:41)
--- NOTE | 2024-05-29 18:09 | P.HPIM ---
History of Present Illness H&P Date: 05/29/24 Patient is a 78 male with CAD (s/p multiple stent), COPD (3 L home O2 at night only), HFpEF (EF 55-60%), hyperlipidemia, hypertension, myocardial infarction, non-insulin dependent type 2 diabetes, history of bilateral pulmonary embolism, presenting with bilateral foot numbness and shortness of breath. He was admitted here recently due to COPD exacerbation. Patient states numbness in feet woke him up last night from his sleep. He tried getting up to walk it off and nearly fell. Patient denies history of diabetes. Patient also has additional complaint of shortness of breath. States it has been getting worse over the past couple days. Patient endorses increased cough with yellowish sputum production. He denies any sick contacts. Patient denies any fever, chills, headache, chest pain, heart palpitations, abdominal pain, urinary symptoms. EKG independently interpreted displaying sinus tachycardia, rate 108 bpm, QTc 404 MS CXR displaying patchy infiltrate opacities in the left lung base CTA abdominal aorta no acute evidence of acute vascular occlusion/thrombosis, extensive atherosclerotic disease involving the abdominal aorta and lower extremity vasculature, 70% stenosis at right external iliac and right superficial femoral arteries, diminutive flow in the bilateral dorsalis pedis arteries and feet Troponin 0.036 => 0.032, lactic acid 3.2, WBC 13.7., Hgb 11.9, HCT 35.5, sodium 131, potassium 4.4, chloride 91, carbon dioxide 33, creatinine 0.73 T 98.7 F, UT 61, RR 29, BP 115/66, O2 96% on room air ED documentation reviewed. Review of systems: Pertinent positives and negatives as discussed in HPI, a complete review of systems was performed and all other systems are negative. Social history: Tobacco: Former 50-year pack smoker, quit 7 years ago Alcohol: Denies alcohol use Recreational drugs: Denies illicit drug use Travel: No recent travel Physical examination: Vital signs reviewed General: non toxic, no distress, appears at stated age, normal weight Derm: no unusual rashes/lesions, warm Head: atraumatic, normocephalic, symmetric Eyes: EOMI, anicteric sclera, pupils equal round reactive to light ENT: Nose and ears atraumatic Neck: No cervical lymphadenopathy, trachea midline, supple Mouth: no lip lesion, mucus membranes moist Cardiovascular: S1S2 reg, no murmur, positive dorsalis pedis pulse bilateral, no edema Lungs: Diminished lung sounds bilaterally, diffuse rhonchi bilaterally, no rales, no accessory muscle use, no wheezing Abdominal: soft, right upper quadrant tenderness to palpation, no guarding Ext: muscle strength 5 out of 5 in all 4 extremities grossly, no gross muscle atrophy, 1+ edema on RLE ankle, 2+ edema on LLE below knee Neuro: CN II-XI grossly intact, no gross focal neuro deficits, decreased sensation bilaterally, feels light touch Psych: Alert, oriented to person, place, and time Assessment/Plan: Patient is a 78 male with CAD (s/p multiple stent), COPD (3 L home O2 at night only), HFpEF (EF 55-60%), hyperlipidemia, hypertension, myocardial infarction, non-insulin dependent type 2 diabetes, history of bilateral pulmonary embolism, presenting with bilateral foot numbness and shortness of breath. #. Sepsis due secondary to community-acquired pneumonia #. Chronic respiratory failure #. Leukocytosis #. Lactic acidosis CXR suspicious for pneumonia left lung base Leukocytosis, RR >/= 20, UT >90 Rocephin 2 g IVPB q24hr (day 1 of 5) Azithromycin 500 mg PO QD (day 1 of 3) Blood and sputum cultures ordered Cepheid panel negative Urine Legionella ordered Procalcitonin ordered NS@100 cc/hr #. COPD with mild exacerbation On 3 L nasal cannula, keep between 88-92% DuoNebs QID, Symbicort inhaler BID, Combivent inhaler QID, Spiriva inhaler, albuterol QID - Solumedrol 60 mg IV Q6H #. Elevated troponin, likely type II NSTEMI Troponin 0.036 => 0.032, continue to trend Cardiology consulted by ED #. Hypervolemic hyponatremia Sodium 131 at baseline Was given Lasix 40 mg IV once by ED #. Hypomagnesia 2 g mag sulfate ordered #. Bilateral leg swelling Was given Lasix 40 mg IV once by ED Venous dupex to rule out DVT Previous echo back in 03/2025 show LVEF at 55-60% #. Neuropathy Start Gabapentin 100 mg PO TID #. Jiy-[id number] type 2 diabetes Insulin SQ sliding scale Accu-Cheks Hypoglycemia precaution #. Normocytic anemia No active bleeding Resume home ferrous sulfate 325 mg PO w/lunch Repeat CBC Chronic: Hyperlipidemia: Lipitor 20 mg PO HS CAD: Aspirin 81 mg p.o., Plavix 75 mg p.o. F: NS@100 cc/hr E: Replete electrolytes as needed N: Heart healthy diet A: PT/OT, fall precaution DVT prophylaxis: Lovenox 40 SQ daily The patient is admitted with an anticipated less than 2 midnight stay for evaluation of [] CODE STATUS: Full code Discussed with: Patient Anticipated discharge place: Likely home Ross Kwan MD PGY-1 IM Dictation was produced using Gl[employer] dictation software. please excuse any grammatical, word or spelling errors. I saw and evaluated the patient during the luu and critical portions of this encounter, and discussed the case in detail with the resident author of this note, I agree with the Assessment and Plan. Past Medical History Past Medical History: Coronary Artery Disease (CAD), COPD, GERD/Reflux, Hyperlipidemia, Hypertension, Myocardial Infarction (DE), Pulmonary Embolus (PE), Renal Disease Additional Past Medical History / Comment(s): Home oxygen prn and pt states he usually wears at night at 3 liters, bilateral PEs in 2003, history ETOH abuse-pt states he has never had withdrawal symptoms, chronic low back pain/sciatica/spurs/disc disease much improved after back injections, past urinary retention, diverticulitis/benign colon polyps removed, nephrolithiasis- passed stones on his own, shingelles 16 years ago-R shoulder. Last Myocardial Infarction Date:: 2010 History of Any Multi-Drug Resistant Organisms: None Reported Past Surgical History: Heart Catheterization With Stent Additional Past Surgical History / Comment(s): Back injections for pain, piece of metal removed from rt eye, EGD, colonoscopy Past Anesthesia/Blood Transfusion Reactions: No Reported Reaction Additional Past Anesthesia/Blood Transfusion Reaction / Comment(s): viktoria trophobia Date of Last Stent Placement:: 2010 Past Psychological History: Anxiety, Depression, PTSD Smoking Status: Former smoker Past Alcohol Use History: None Reported Past Drug Use History: None Reported - Past Family History Mother Family Medical History: Cancer Additional Family Medical History / Comment(s): from breast cancer at age 53 Father Family Medical History: Coronary Artery Disease (CAD), Myocardial Infarction (DE) Additional Family Medical History / Comment(s): 4 mi's/CABG. at at age 72 Medications and Allergies Home Medications Medication Instructions Recorded Confirmed Type Aspirin EC [Ecotrin Low Dose] 81 mg PO DAILY 06/22/18 05/29/24 History Budesonide/Formoterol Fumarate 2 puff INHALATION RT-BID 06/22/18 05/29/24 History [Symbicort 160-4.5 Mcg Inhaler] Ipratropium/Albuterol Sulfate 1 puff INHALATION RT-QID 06/22/18 05/29/24 History [Combivent Respimat Inhaler] Metoprolol Tartrate [Lopressor] 25 mg PO BID 06/22/18 05/29/24 History Clopidogrel Bisulfate [Plavix] 75 mg PO DAILY 07/01/18 05/29/24 History Albuterol Inhaler [Ventolin Hfa 2 puff INHALATION RT-TID PRN 12/07/19 05/29/24 History Inhaler] Albuterol Nebulized [Ventolin 2.5 mg INHALATION RT-QID 12/07/19 05/29/24 History Nebulized] Loratadine [Claritin] 10 mg PO DAILY 12/07/19 05/29/24 History Simvastatin [Zocor] 40 mg PO HS 12/07/19 05/29/24 History Tiotropium 18 Mcg/Puff [Spiriva] 2 puff INHALATION RT-DAILY 12/07/19 05/29/24 History Cholecalciferol [Vitamin D3 (25 25 mcg PO BID 03/17/24 05/29/24 History Mcg = 1000 Iu)] Ferrous Sulfate [Iron (65 MG 325 mg PO W/LUNCH 04/06/24 05/29/24 History Elemental)] Folic Acid 1 mg PO DAILY 04/06/24 05/29/24 History Vitamin B-12 50mcg 50 mcg PO DAILY 04/06/24 05/29/24 History Furosemide [Lasix] 20 mg PO DAILY 04/16/24 05/29/24 History Allergies Allergy/AdvReac Type Severity Reaction Status Date / Time fluticasone AdvReac Nausea Verified 05/29/24 13:44 [From [facility]] levofloxacin [From Levaquin] AdvReac TENDON PAIN Verified 05/29/24 13:44 salmeterol AdvReac Nausea Verified 05/29/24 13:44 [From [facility]] Physical Exam Vitals: Vital Signs Temp Pulse Resp BP Pulse Ox 05/29/24 14:27 99 24 123/62 98 05/29/24 14:02 110 H 20 114/67 97 05/29/24 13:40 98.7 F 61 20 115/66 96 Intake and Output 05/29/24 05/29/24 05/29/24 06:59 14:59 22:59 Other: Weight 115.212 kg Results CBC & Chem 7: 05/29/24 14:48 05/29/24 14:48 Labs: Abnormal Lab Results - Last 24 Hours (Table) 05/29/24 05/29/24 05/29/24 Range/Units 14:48 14:48 14:48 WBC 13.7 H (3.8-10.6) k/uL RBC 4.19 L (4.30-5.90) m/uL Hgb 11.9 L (13.0-17.5) gm/dL Hct 35.5 L (39.0-53.0) % Neutrophils # 11.2 H (1.3-7.7) k/uL APTT 20.4 L (22.0-30.0) sec Sodium 131 L (137-145) mmol/L Chloride 91 L (98-107) mmol/L Carbon Dioxide 33 H (22-30) mmol/L Glucose 115 H (74-99) mg/dL Plasma Lactic Acid Sandor (0.7-2.0) mmol/L Magnesium 1.5 L (1.6-2.3) mg/dL Troponin I (0.000-0.034) ng/mL Total Protein 5.5 L (6.3-8.2) g/dL Albumin 3.1 L (3.5-5.0) g/dL 05/29/24 05/29/24 Range/Units 14:48 14:48 WBC (3.8-10.6) k/uL RBC (4.30-5.90) m/uL Hgb (13.0-17.5) gm/dL Hct (39.0-53.0) % Neutrophils # (1.3-7.7) k/uL APTT (22.0-30.0) sec Sodium (137-145) mmol/L Chloride (98-107) mmol/L Carbon Dioxide (22-30) mmol/L Glucose (74-99) mg/dL Plasma Lactic Acid Sandor 3.2 H* (0.7-2.0) mmol/L Magnesium (1.6-2.3) mg/dL Troponin I 0.036 H* (0.000-0.034) ng/mL Total Protein (6.3-8.2) g/dL Albumin (3.5-5.0) g/dL
--- NOTE | 2024-05-29 18:10 | US ---
EXAMINATION TYPE: US venous doppler duplex LE DATE OF EXAM: 05/29/2024 5:43 PM COMPARISON: US CLINICAL INDICATION: Male, 78 years old with history of swelling, elevated d-dimer; Elevated D-dimer, Pain TECHNIQUE: The lower extremity deep venous system is examined utilizing real time linear array sonog brandon with graded compression, color doppler sonography, and spectral doppler. SIDE PERFORMED: Bilateral FINDINGS: VESSELS IMAGED: Common Femoral Vein Deep Femoral Vein Greater Saphenous Vein * Femoral Vein Popliteal Vein Small Saphenous Vein * Proximal Calf Veins (* superficial vessels) Right Leg: Negative for DVT, Color Doppler imaging shows patency of the vessels. Spectral waveforms are within normal limits. Left Leg: Negative for DVT, Color Doppler imaging shows patency of the vessels. Spectral waveforms a re within normal limits. IMPRESSION: No ultrasound evidence for deep venous thrombosis. [facility], , 05/29/2024 6:08 PM
[2024-05-29] MEDS: SODIUM CHLORIDE 0.9% 1,000 ML IV SCH (18:39)
[2024-05-29] MEDS: ENOXAPARIN 40 MG/0.4 ML SYRINGE SQ SCH (18:44)
[2024-05-29] MEDS: SYMBICORT 160-4.5 MCG INHALER INHALATION SCH (19:57)
[2024-05-29] MEDS: IPRATROPIUM-ALBUTEROL 3 ML NEB INHALATION SCH (19:57)
[2024-05-29] MEDS ORDERED: NON FORMULARY DRUG (Ipratropium/Albuterol Sulfate [Combivent Respimat Inhaler] 1 INHALER M INHALATION SCH (20:00)
[2024-05-29] MEDS ORDERED: ALBUTEROL NEBULIZED 2.5 MG/3 ML INHALATION SCH (20:00)
[2024-05-29 20:38] LABS: Glucose,Whole Blood 130 mg/dL (70-110)
[2024-05-29] MEDS: GABAPENTIN 100 MG CAP PO SCH (21:12)
[2024-05-29] MEDS: ATORVASTATIN 20 MG TAB PO SCH (21:12)
[2024-05-29] MEDS: METOPROLOL TARTRATE 25 MG TAB PO SCH (21:17)
[2024-05-30] MEDS: methylPREDNISolone SOD SUCCI 125 MG/2 ML VIAL IV SCH (00:07)
[2024-05-30] MEDS ORDERED: IPRATROPIUM-ALBUTEROL 3 ML NEB INHALATION PRN (06:41)
--- NOTE | 2024-05-30 07:06 | XR ---
EXAMINATION TYPE: XR chest 1V portable DATE OF EXAM: 05/30/2024 5:24 AM COMPARISON: Chest radiographs from 05/29/2024, CTA chest 04/30/2024 TECHNIQUE: XR chest 1V portable Portable AP radiograph of the chest. CLINICAL INDICATION:Male, 78 years old with history of pneumonia; FINDINGS: Lungs/Pleura: No pleural effusion or pneumothorax. Redemonstration of patchy left lung base airspace opacities. Pulmonary vascularity: Unremarkable. Heart/mediastinum: Cardiomediastinal silhouette is enlarged and stable. Atherosclerotic calcificatio ns are seen in the aorta. Musculoskeletal: No acute osseous pathology. IMPRESSION: Similar patchy airspace opacities within the left lung base suspicious for pneumonia. [facility], , 05/30/2024 7:04 AM
[2024-05-30 07:15] LABS: HCT 32.6 % (39.0-53.0); HGB 11.1 gm/dL (13.0-17.5); MCH 28.4 pg (25.0-35.0); MCHC 33.9 g/dL (31.0-37.0); MCV 83.7 fL (80.0-100.0); Mean Platelet Volume 7.4; Platelet Count 319 k/uL (150-450); RDW 15.2 % (11.5-15.5); WBC 7.9 k/uL (3.8-10.6)
[2024-05-30 07:52] LABS: ALT 21 U/L (4-49); AST 16 U/L (17-59); African American GFR (CKD) >90 (>60 ml/min/1.73 sqM); Albumin 2.8 g/dL (3.5-5.0); Alkaline Phosphatase 58 U/L (38-126); Anion Gap 4 mmol/L; Blood Urea Nitrogen 11 mg/dL (9-20); Calcium 8.2 mg/dL (8.4-10.2); Carbon Dioxide 33 mmol/L (22-30); Chloride 91 mmol/L (98-107); Glucose 163 mg/dL (74-99); Magnesium 1.9 mg/dL (1.6-2.3); Non-African American GFR(CKD) >90 (>60 ml/min/1.73 sqM); Potassium 4.5 mmol/L (3.5-5.1); Sodium 128 mmol/L (137-145); Total Bilirubin 0.7 mg/dL (0.2-1.3)
[2024-05-30] MEDS ORDERED: TIOTROPIUM 2.5 MCG INHALER INHALATION SCH (08:00)
[2024-05-30] MEDS: ASPIRIN 81 MG PO SCH (08:07)
[2024-05-30] MEDS: FOLIC ACID 1 MG TAB PO SCH (08:07)
[2024-05-30] MEDS: predniSONE 20 MG TAB PO SCH (08:07)
[2024-05-30] MEDS: CLOPIDOGREL 75 MG TAB PO SCH (08:08)
[2024-05-30] MEDS: CYANOCOBALAMIN 500 MCG TAB PO SCH (08:08)
[2024-05-30] MEDS: AZITHROMYCIN 500 MG TAB PO SCH (08:08)
[2024-05-30] MEDS: LORATADINE 10 MG TAB PO SCH (08:08)
[2024-05-30 08:48] LABS: Band Neutrophils % 1 %; Monocytes # (M) 0.16 k/uL (0-1.0); Neutrophils % (M) 92 %; Nucleated Red Blood Cells 0 /100 WBC (0-0); Total Cells Counted 100
[2024-05-30 08:49] LABS: Anisocytosis (M) Present
--- NOTE | 2024-05-30 10:05 | P.CRDCN ---
History of Present Illness History of present illness: HISTORY OF PRESENT ILLNESS: This is a 78-year-old male with a past medical history significant for coronary artery disease, hypertension, hyperlipidemia, COPD, and obesity. Patient follows in the office with Dr. Camacho. We have been asked to see the patient in consultation for elevated troponin. Patient examined at the bedside in the emergency room. Patient presented to the hospital with a chief complaint of congestion. He states that he has been feeling short of breath. He also r eports a cough with sputum production. He denies any chest pain or pressure. DIAGNOSTICS: - EKG reveals sinus tachycardia with nonspecific ST-T wave changes - Chest xray similar patchy airspace opacities within the left lung base suspicious for pneumonia - Venous Doppler: Negative for DVT of bilateral lower extremities - Laboratory data: WBC 7.9. Hemoglobin 11.1. Platelet count 319. Sodium 128. Potassium 4.5. BUN 11. Creatinine 0.68. Troponin 0.036. 0.032. 0.037. - Current home cardiac medications include aspirin 81 mg daily, Plavix 75 mg daily, Lasix 20 mg daily, metoprolol tartrate 25 mg twice a day, simvastatin 40 mg at night. - Most recent echocardiogram obtained in March 2024 revealed ejection fraction 55 to 60%, trace to mild TR - Cardiac catheterization history: February 2011 with stenting to the proximal RCA REVIEW OF SYSTEMS: At the time of my exam: CONSTITUTIONAL: Denies fever or chills. HEENT: Denies blurred vision, vision changes, or eye pain. Denies hemoptysis CARDIOVASCULAR: Denies chest pain. Denies orthopnea. Denies PND. Denies palpitations RESPIRATORY: Denies shortness of breath. GASTROINTESTINAL: Denies abdominal pain. Denies nausea or vomiting. HEMATOLOGIC: Denies bleeding disorders. GENITOURINARY: Denies any blood in urine. SKIN: Denies pruitis. Denies rash. PHYSICAL EXAM: VITAL SIGNS: Reviewed. GENERAL: Well-developed in no acute distress. HEENT: Head is normocephalic. Pupils are equal, round. Sclerae anicteric. Mucous membranes of the mouth are moist. Neck supple. No JVD or thyromegaly LUNGS: Respirations even and unlabored. Lungs with expiratory wheezing and bibasilar crackles HEART: Regular rate and rhythm. S1 and S2 heard. ABDOMEN: Soft. Nondistended. Nontender. EXTREMITIES: Normal range of motion. No clubbing or cyanosis. Peripheral pulses intact. Trace bilateral lower extremity edema NEUROLOGIC: Awake and alert. Oriented x 3. ASSESSMENT: Pneumonia Coronary artery disease with previous stenting to the proximal RCA, 2010 Mild COPD exacerbation Minimally elevated troponins, likely type II [place] secondary to oxygen supply and demand mismatch, no evidence of acute coronary syndrome Chronic heart failure with preserved EF, currently euvolemic History of ischemic cardiomyopathy with improved EF, most recently 55 to 60% Hypertension Hyperlipidemia PLAN: An acute coronary event has been ruled out No need to repeat echocardiogram as this was performed in March 2024 Resume home cardiac medications Discontinue IV fluids Treatment of pneumonia and COPD per primary medicine and pulmonary medicine No plans for invasive testing from a cardiac standpoint Further recommendations pending patient course Patient to follow-up postdischarge with Dr. Camacho Nurse practitioner note has been reviewed by physician. Signing provider agrees with the documented findings, assessment, and plan of care documented by [employer] as a scribe. Past Medical History Past Medical History: Coronary Artery Disease (CAD), COPD, GERD/Reflux, Hyperlipidemia, Hypertension, Myocardial Infarction ([place]), Pulmonary Embolus (PE), Renal Disease Additional Past Medical History / Comment(s): Home oxygen prn and pt states he usually wears at night at 3 liters, bilateral PEs in 2003, history ETOH abuse-pt states he has never had withdrawal symptoms, chronic low back pain/sciatic a/spurs/disc disease much improved after back injections, past urinary retention, diverticulitis/benign colon polyps removed, nephrolithiasis-passed stones on his own, shingelles 16 years ago-R shoulder. Last Myocardial Infarction Date:: 2010 History of Any Multi-Drug Resistant Organisms: None Reported Past Surgical History: Heart Catheterization With Stent Additional Past Surgical History / Comment(s): Back injections for pain, piece of metal removed from rt eye, EGD, colonoscopy Past Anesthesia/Blood Transfusion Reactions: No Reported Reaction Additional Past Anesthesia/Blood Transfusion Reaction / Comment(s): claustrophobia Date of Last Stent Placement:: 2010 Past Psychological History: Anxiety, Depression, PTSD Smoking Status: Former smoker Past Alcohol Use History: None Reported Past Drug Use History: None Reported - Past Family History Mother Family Medical History: Cancer Additional Family Medical History / Comment(s): from breast cancer at age 53 Father Family Medical History: Coronary Artery Disease (CAD), Myocardial Infarction ([place]) Additional Family Medical History / Comment(s): 4 mi's/CABG. at at age 72 Medications and Allergies Home Medications Medication Instructions Recorded Confirmed Type Aspirin EC [Ecotrin Low Dose] 81 mg PO DAILY 06/22/18 05/29/24 History Budesonide/Formoterol Fumarate 2 puff INHALATION RT-BID 06/22/18 05/29/24 History [Symbicort 160-4.5 Mcg Inhaler] Ipratropium/Albuterol Sulfate 1 puff INHALATION RT-QID 06/22/18 05/29/24 History [Combivent Respimat Inhaler] Metoprolol Tartrate [Lopressor] 25 mg PO BID 06/22/18 05/29/24 History Clopidogrel Bisulfate [Plavix] 75 mg PO DAILY 07/01/18 05/29/24 History Albuterol Inhaler [Ventolin Hfa 2 puff INHALATION RT-TID PRN 12/07/19 05/29/24 History Inhaler] Albuterol Nebulized [Ventolin 2.5 mg INHALATION RT-QID 12/07/19 05/29/24 History Nebulized] Loratadine [Claritin] 10 mg PO DAILY 12/07/19 05/29/24 History Simvastatin [Zocor] 40 mg PO HS 12/07/19 05/29/24 History Tiotropium 18 Mcg/Puff [Spiriva] 2 puff INHALATION RT-DAILY 12/07/19 05/29/24 History Cholecalciferol [Vitamin D3 (25 25 mcg PO BID 03/17/24 05/29/24 History Mcg = 1000 Iu)] Ferrous Sulfate [Iron (65 MG 325 mg PO W/LUNCH 04/06/24 05/29/24 History Elemental)] Folic Acid 1 mg PO DAILY 04/06/24 05/29/24 History Vitamin B-12 50mcg 50 mcg PO DAILY 04/06/24 05/29/24 History Furosemide [Lasix] 20 mg PO DAILY 04/16/24 05/29/24 History Allergies Allergy/AdvReac Type Severity Reaction Status Date / Time fluticasone AdvReac Nausea Verified 05/29/24 13:44 [From [facility]] levofloxacin [From Levaquin] AdvReac TENDON PAIN Verified 05/29/24 13:44 salmeterol AdvReac Nausea Verified 05/29/24 13:44 [From [facility]] Physical Exam Vitals: Vital Signs Temp Pulse Resp BP Pulse Ox 05/30/24 07:59 93 L 05/30/24 06:00 97.3 F L 67 18 111/57 94 L 05/30/24 02:46 97.5 F L 67 117/75 97 05/29/24 22:36 70 114/61 100 05/29/24 22:00 81 16 111/73 98 05/29/24 21:16 97 111/73 05/29/24 20:06 93 05/29/24 19:59 98 05/29/24 19:45 97.2 F L 90 20 102/68 99 05/29/24 16:53 97.5 F L 111 H 22 125/77 99 05/29/24 14:27 99 24 123/62 98 05/29/24 14:02 110 H 20 114/67 97 05/29/24 13:40 98.7 F 61 20 115/66 96 Results 05/30/24 06:18 05/30/24 06:18 Cardiac Enzymes 05/29/24 05/29/24 05/29/24 Range/Units 14:48 14:48 16:33 AST 19 (17-59) U/L Troponin I 0.036 H* 0.032 (0.000-0.034) ng/mL 05/29/24 05/30/24 Range/Units 20:37 06:18 AST 16 L (17-59) U/L Troponin I 0.037 H* (0.000-0.034) ng/mL Coagulation 05/29/24 Range/Units 14:48 PT 10.2 (10.0-12.5) sec APTT 20.4 L (22.0-30.0) sec CBC 05/29/24 05/30/24 Range/Units 14:48 06:18 WBC 13.7 H 7.9 (3.8-10.6) k/uL RBC 4.19 L 3.90 L (4.30-5.90) m/uL Hgb 11.9 L 11.1 L (13.0-17.5) gm/dL Hct 35.5 L 32.6 L (39.0-53.0) % Plt Count 335 319 (150-450) k/uL Comprehensive Metabolic Panel 05/29/24 05/30/24 Range/Units 14:48 06:18 Sodium 131 L 128 L (137-145) mmol/L Potassium 4.4 4.5 (3.5-5.1) mmol/L Chloride 91 L 91 L (98-107) mmol/L Carbon Dioxide 33 H 33 H (22-30) mmol/L BUN 14 11 (9-20) mg/dL Creatinine 0.73 0.68 (0.66-1.25) mg/dL Glucose 115 H 163 H (74-99) mg/dL Calcium 8.7 8.2 L (8.4-10.2) mg/dL AST 19 16 L (17-59) U/L ALT 23 21 (4-49) U/L Alkaline Phosphatase 61 58 (38-126) U/L Total Protein 5.5 L 5.0 L (6.3-8.2) g/dL Albumin 3.1 L 2.8 L (3.5-5.0) g/dL Current Medications Generic Name Dose Route Start Last Admin Trade Name Freq PRN Reason Stop Dose Admin Albuterol Sulfate 2.5 mg 05/29/24 17:41 Albuterol Nebulized 2.5 Mg/3 Ml INHALATION RT-TID PRN Shortness Of Breath Albuterol/Ipratropium 3 ml 05/29/24 20:00 05/30/24 07:59 Ipratropium-Albuterol 3 Ml Neb INHALATION Not Given RT-QID CYNDI Albuterol/Ipratropium 3 ml 05/30/24 06:41 Ipratropium-Albuterol 3 Ml Neb INHALATION RT-QID PRN Shortness Of Breath Or Wheezing Aspirin 81 mg 05/30/24 09:00 05/30/24 08:07 Aspirin 81 Mg PO 81 mg DAILY CYNDI Administration Atorvastatin Calcium 20 mg 05/29/24 21:00 05/29/24 21:12 Atorvastatin 20 Mg Tab PO 20 mg HS YCNDI Administration Azithromycin 500 mg 05/30/24 09:00 05/30/24 08:08 Azithromycin 500 Mg Tab PO 05/31/24 09:01 500 mg DAILY CYNDI Administration Protocol Budesonide/Formoterol Fumarate 2 puff 05/29/24 20:00 05/30/24 07:58 Symbicort 160-4.5 Mcg Inhaler INHALATION Not Given RT-BID [facility] Clopidogrel Bisulfate 75 mg 05/30/24 09:00 05/30/24 08:08 Clopidogrel 75 Mg Tab PO 75 mg DAILY CYNDI Administration Cyanocobalamin 250 mcg 05/30/24 09:00 05/30/24 08:08 Cyanocobalamin 500 Mcg Tab PO 250 mcg DAILY CYNDI Administration Enoxaparin Sodium 40 mg 05/29/24 17:45 05/30/24 08:08 Enoxaparin 40 Mg/0.4 Ml Syringe SQ 40 mg DAILY CYNDI Administration Ferrous Sulfate 325 mg 05/30/24 12:30 Ferrous Sulfate 325 Mg Tab PO W/LUNCH CYNDI Folic Acid 1 mg 05/30/24 09:00 05/30/24 08:07 Folic Acid 1 Mg Tab PO 1 mg DAILY CYNDI Administration Gabapentin 100 mg 05/29/24 22:00 05/29/24 21:12 Gabapentin 100 Mg Cap PO 100 mg TID CYNDI Administration Ceftriaxone Sodium 2 gm/ 50 mls @ 100 mls/hr 05/30/24 09:00 05/30/24 08:09 Sodium Chloride IVPB 06/02/24 09:29 100 mls/hr Q24HR CYNDI Administration Protocol Sodium Chloride 1,000 mls @ 100 mls/hr 05/29/24 18:00 05/30/24 08:10 Saline 0.9% IV 100 mls/hr .Q10H CYNDI Administration Insulin Aspart 0 unit 05/29/24 17:30 05/30/24 08:08 Insulin Aspart (Novolog) 100 Unit/Ml Vial SQ 2 unit ACHS CYNDI Administration Protocol Loratadine 10 mg 05/30/24 09:00 05/30/24 08:08 Loratadine 10 Mg Tab PO 10 mg DAILY CYNDI Administration Metoprolol Tartrate 25 mg 05/29/24 21:00 05/30/24 08:08 Metoprolol Tartrate 25 Mg Tab PO 25 mg BID CYNDI Administration Miscellaneous Information 1 each 05/29/24 16:08 Pneumonia Protocol Utilized 1 Each Misc PO ONCE PRN Per Protocol Prednisone 40 mg 05/30/24 09:00 05/30/24 08:07 Prednisone 20 Mg Tab PO 40 mg DAILY CYNDI Administration 05/30/24 06:18 05/30/24 06:18
[2024-05-30] MEDS: FUROSEMIDE 20 MG TAB PO SCH (10:06)
[2024-05-30 12:15] LABS: Glucose,Whole Blood 154 mg/dL (70-110)
[2024-05-30] MEDS: FERROUS SULFATE 325 MG TAB PO SCH (12:17)
--- NOTE | 2024-05-30 15:32 | P.PN ---
Subjective Progress Note Date: 05/30/24 Hospital Course: Patient is a 78 male with CAD (s/p multiple stent), COPD (3 L home O2 at night only), HFpEF (EF 55-60%), hyperlipidemia, hypertension, myocardial infarction, non-insulin dependent type 2 diabetes, history of bilateral pulmonary embolism, presenting with bilateral foot numbness and shortness of breath. He was admitted here recently due to COPD exacerbation. Patient states numbness in feet woke him up last night from his sleep. He tried getting up to walk it off and nearly fell. Patient denies history of diabetes. Patient also has additional complaint of shortness of breath. States it has been getting worse over the past couple days. Patient endorses increased cough with yellowish sputum production. He denies any sick contacts. Patient denies any fever, chills, headache, chest pain, heart palpitations, abdominal pain, urinary symptoms. EKG independently interpreted displaying sinus tachycardia, rate 108 bpm, QTc 404 MS CXR displaying patchy infiltrate opacities in the left lung base CTA abdominal aorta no acute evidence of acute vascular occlusion/thrombosis, extensive atherosclerotic disease involving the abdominal aorta and lower extrem ity vasculature, 70% stenosis at right external iliac and right superficial femoral arteries, diminutive flow in the bilateral dorsalis pedis arteries and feet Troponin 0.036 => 0.032, lactic acid 3.2, WBC 13.7., Hgb 11.9, HCT 35.5, sodium 131, potassium 4.4, chloride 91, carbon dioxide 33, creatinine 0.73 T 98.7 F, MA 61, RR 29, BP 115/66, O2 96% on room air Subjective: Patient seen and examined at bedside. No acute events overnight. Pertinent positives and negatives as discussed above, a complete review of systems was performed and all other systems are negative. Vitals: Signs Reviewed Physical Exam: General: nontoxic, no distress, appears at stated age Derm: warm, dry, intact Head: atraumatic, normocephalic, symmetric Eyes: EOMI, anicteric sclera Mouth: no lip lesion, mucus membranes moist Cardiovascular: S1 S2 reg, no murmur, rubs, or gallops Lungs: Diminished lung sounds bilaterally, diffuse rhonchi bilaterally, no rales, no accessory muscle use, No wheezing Abdominal: soft, right upper quadrant tenderness to palpation, no appreciable organomegaly Extremities: no gross muscle atrophy, no edema, no contractures, 1+ edema on RLE ankle, 2+ edema on LLE below knee Neuro: Alert, Oriented, CNII-XII grossly intact, gait normal Psych: well appearing, appropriate affect Data Received Today: Pertinent Labs: WBC 7.9, Hgb 11.1, sodium 128, CO2 33 BUN 11, creatinine 0.68, glucose 163 Imaging: Chest x-ray independently interpreted displaying patchy left lower lobe opacity Assessment and Plan: Patient is a 78 male with CAD (s/p multiple stent), COPD (3 L home O2 at night only), HFpEF (EF 55-60%), hyperlipidemia, hypertension, myocardial infarction, non-insulin dependent type 2 diabetes, history of bilateral pulmonary embolism, presenting with bilateral foot numbness and shortness of breath. #. Sepsis due secondary to community-acquired pneumonia #. Chronic respiratory failure CXR suspicious for pneumonia left lung base Leukocytosis, RR >/= 20, MA >90 Rocephin 2 g IVPB q24hr (day 2 of 5) Azithromycin 500 mg PO QD (day 2 of 3) Blood and sputum cultures pending Cepheid panel negative Urine Legionella pending Procalcitonin ordered NS @ 100 cc/hr #. COPD with mild exacerbation On 3 L nasal cannula, keep between 88-92% DuoNebs 3mL QID and PRN, Symbicort inhaler BID, Combivent inhaler QID, Spiriva inhaler, albuterol QID Prednisone 40 mg PO QD (day 1 of 5) Spoke with pulmonology regarding placing patient on prophylactic azithromycin to decrease hospital reoccurrence #. Elevated troponin, likely type II NSTEMI Troponin 0.036 => 0.032, => 0.037 EKG independently interpreted displaying sinus tachycardia, rate 108 bpm, QTc 404 MS Cardiology note reviewed, ACS ruled out, discontinue IV fluids, resume home cardiac meds, no need for cardiac intervention #. Hypervolemic hyponatremia Sodium 131 on admission at baseline Was given Lasix 40 mg IV once by ED #. HFpEF not in acute exacerbation #. Bilateral leg edema Was given Lasix 40 mg IV once by ED Venous duplex to rule out DVT Previous echo back in 03/2025 show LVEF at 55-60% Continue with home Lasix 20 mg p.o. daily #. Neuropathy #. Near fall Increase gabapentin 100 mg 3 times daily to 200 mg 3 times daily PT/OT consult #. Wds-mkinifk-iszpozofl type 2 diabetes Insulin SQ sliding scale Accu-Cheks Hypoglycemia precaution #. Normocytic anemia No active bleeding Resume home ferrous sulfate 325 mg PO w/lunch Repeat CBC Chronic: Hyperlipidemia: Lipitor 20 mg PO HS CAD: Aspirin 81 mg p.o., Plavix 75 mg p.o. Resolved: Hypomagnesemia Leukocytosis Lactic acidosis F: NS@100 cc/hr E: Replete electrolytes as needed N: Heart healthy diet A: PT/OT, fall precaution DVT prophylaxis: Lovenox 40 SQ daily Code status: FULL CODE Anticipated discharge place: Likely home Anticipated discharge time: Pending clinical course Ross Kwan MD PGY-1 IM Dictation was produced using [employer] dictation software. please excuse any grammatical, word or spelling errors. I have seen and evaluated the patient today. Discussed with the resident and agree with the residents finding and plan as documented in the resident's note. Changes highlighted in blue font. Objective - Vital Signs Vital signs: Vital Signs Temp 97.3 F L 05/30/24 06:00 Pulse 67 05/30/24 06:00 Resp 18 05/30/24 06:00 BP 111/57 05/30/24 06:00 Pulse Ox 94 L 05/30/24 06:00 FiO2 Intake & Output 05/29/24 05/29/24 05/30/24 06:59 18:59 06:59 Weight 115.212 kg - Labs CBC & Chem 7: 05/30/24 06:18 05/30/24 06:18 Labs: Abnormal Lab Results - Last 24 Hours (Table) 05/29/24 05/29/24 05/29/24 Range/Units 14:48 14:48 14:48 WBC 13.7 H (3.8-10.6) k/uL RBC 4.19 L (4.30-5.90) m/uL Hgb 11.9 L (13.0-17.5) gm/dL Hct 35.5 L (39.0-53.0) % Neutrophils # 11.2 H (1.3-7.7) k/uL APTT 20.4 L (22.0-30.0) sec Sodium 131 L (137-145) mmol/L Chloride 91 L (98-107) mmol/L Carbon Dioxide 33 H (22-30) mmol/L Glucose 115 H (74-99) mg/dL POC Glucose (mg/dL) (70-110) mg/dL Plasma Lactic Acid Sandor (0.7-2.0) mmol/L Magnesium 1.5 L (1.6-2.3) mg/dL Troponin I (0.000-0.034) ng/mL Total Protein 5.5 L (6.3-8.2) g/dL Albumin 3.1 L (3.5-5.0) g/dL 05/29/24 05/29/24 05/29/24 Range/Units 14:48 14:48 17:28 WBC (3.8-10.6) k/uL RBC (4.30-5.90) m/uL Hgb (13.0-17.5) gm/dL Hct (39.0-53.0) % Neutrophils # (1.3-7.7) k/uL APTT (22.0-30.0) sec Sodium (137-145) mmol/L Chloride (98-107) mmol/L Carbon Dioxide (22-30) mmol/L Glucose (74-99) mg/dL POC Glucose (mg/dL) 115 H (70-110) mg/dL Plasma Lactic Acid Sandor 3.2 H* (0.7-2.0) mmol/L Magnesium (1.6-2.3) mg/dL Troponin I 0.036 H* (0.000-0.034) ng/mL Total Protein (6.3-8.2) g/dL Albumin (3.5-5.0) g/dL 05/29/24 05/29/24 Range/Units 20:36 20:37 WBC (3.8-10.6) k/uL RBC (4.30-5.90) m/uL Hgb (13.0-17.5) gm/dL Hct (39.0-53.0) % Neutrophils # (1.3-7.7) k/uL APTT (22.0-30.0) sec Sodium (137-145) mmol/L Chloride (98-107) mmol/L Carbon Dioxide (22-30) mmol/L Glucose (74-99) mg/dL POC Glucose (mg/dL) 130 H (70-110) mg/dL Plasma Lactic Acid Sandor (0.7-2.0) mmol/L Magnesium (1.6-2.3) mg/dL Troponin I 0.037 H* (0.000-0.034) ng/mL Total Protein (6.3-8.2) g/dL Albumin (3.5-5.0) g/dL
--- NOTE | 2024-05-30 16:40 | P.CNPUL ---
History of Present Illness Consult date: 05/30/24 Requesting physician: Christi Alberto Reason for consult: dyspnea, abnormal CXR/CT Chief complaint: Shortness of breath, cough, congestion History of present illness: This is a 78-year-old male patient with past medical history significant for COPD, former smoker, hypertension, hyperlipidemia, PAD, heart failure. He has had frequent admissions for COPD exacerbations. He has an FEV1 value of 29% of predicted. He is maintained on home oxygen. He was most recently discharged from here on 05/19/2024. He presented to the emergency room again yesterday with increasing shortness of breath, cough and congestion. He was still taking his prednisone taper from last admission. Chest x-ray reveals patchy infiltrative opacities in the left lung base. CT angiogram ruled out pulmonary embolism. There is a patchy left lower lobe consolidative opacity. White count 7.9. Hemoglobin 9.1. Platelets 319. Sodium 128. Potassium 4.5. Bicarb 33. BUN 11. Creatinine 0.68. Glucose 163. Procalcitonin negative at 0.12. He is seen today in consultation in the emergency department. Currently sitting up on a stretcher. Awake and alert in no acute distress. He has a loose congested cough. He is maintaining O2 saturations in the mid 90s on 3 L/min per nasal cannula. Afebrile. Hemodynamically stable. Sputum culture from previous admission on 05/19/2024 was positive for Stenotrophomonas maltophilia. Review of Systems REVIEW OF SYSTEMS: CONSTITUTIONAL: Denies any recent significant weight loss or weight gain. EYES: Denies change in vision. EARS, NOSE, MOUTH, THROAT: Denies headaches, denies sore throat. CARDIOVASCULAR: Denies chest pain, palpitations or syncopal episodes. RESPIRATORY: Positive for shortness of breath, cough, congestion no hemoptysis. GASTROINTESTINAL: Denies change in appetite, denies abdominal pain GENITOURINARY: Denies hematuria, denies infections. MUSKULOSKELETAL: Denies pain, denies swelling. INTEGUMENTARY: Denies rash, denies eczema. NEUROLOGICAL: Denies recent memory loss, no recent seizure activity. PSYCHIATRIC: Denies anxiety, denies depression. HEMATOLOGIC/LYMPHATIC: Denies anemia, denies enlarged lymph nodes. Past Medical History Past Medical History: Coronary Artery Disease (CAD), COPD, GERD/Reflux, Hyperlipidemia, Hypertension, Myocardial Infarction (OK), Pulmonary Embolus (PE), Renal Disease Additional Past Medical History / Comment(s): Home oxygen prn and pt states he usually wears at night at 3 liters, bilateral PEs in 2003, history ETOH abuse-pt states he has never had withdrawal symptoms, chronic low back pain/sciatica/spurs/disc disease much improved after back injections, past urinary retention, diverticulitis/benign colon polyps removed, nephrolithiasis- passed stones on his own, shingelles 16 years ago-R shoulder. Last Myocardial Infarction Date:: 2010 History of Any Multi-Drug Resistant Organisms: None Reported Past Surgical History: Heart Catheterization With Stent Additional Past Surgical History / Comment(s): Back injections for pain, piece of metal removed from rt eye, EGD, colonoscopy Past Anesthesia/Blood Transfusion Reactions: No Reported Reaction Additional Past Anesthesia/Blood Transfusion Reaction / Comment(s): claustrophobia Date of Last Stent Placement:: 2010 Past Psychological History: Anxiety, Depression, PTSD Smoking Status: Former smoker Past Alcohol Use History: None Reported Past Drug Use History: None Reported - Past Family History Mother Family Medical History: Cancer Additional Family Medical History / Comment(s): from breast cancer at age 53 Father Family Medical History: Coronary Artery Disease (CAD), Myocardial Infarction (OK) Additional Family Medical History / Comment(s): 4 mi's/CABG. at at age 72 Medications and Allergies Home Medications Medication Instructions Recorded Confirmed Type Aspirin EC [Ecotrin Low Dose] 81 mg PO DAILY 06/22/18 05/29/24 History Budesonide/Formoterol Fumarate 2 puff INHALATION RT-BID 06/22/18 05/29/24 History [Symbicort 160-4.5 Mcg Inhaler] Ipratropium/Albuterol Sulfate 1 puff INHALATION RT-QID 06/22/18 05/29/24 History [Combivent Respimat Inhaler] Metoprolol Tartrate [Lopressor] 25 mg PO BID 06/22/18 05/29/24 History Clopidogrel Bisulfate [Plavix] 75 mg PO DAILY 07/01/18 05/29/24 History Albuterol Inhaler [Ventolin Hfa 2 puff INHALATION RT-TID PRN 12/07/19 05/29/24 History Inhaler] Albuterol Nebulized [Ventolin 2.5 mg INHALATION RT-QID 12/07/19 05/29/24 History Nebulized] Loratadine [Claritin] 10 mg PO DAILY 12/07/19 05/29/24 History Simvastatin [Zocor] 40 mg PO HS 12/07/19 05/29/24 History Tiotropium 18 Mcg/Puff [Spiriva] 2 puff INHALATION RT-DAILY 12/07/19 05/29/24 History Cholecalciferol [Vitamin D3 (25 25 mcg PO BID 03/17/24 05/29/24 History Mcg = 1000 Iu)] Ferrous Sulfate [Iron (65 MG 325 mg PO W/LUNCH 04/06/24 05/29/24 History Elemental)] Folic Acid 1 mg PO DAILY 04/06/24 05/29/24 History Vitamin B-12 50mcg 50 mcg PO DAILY 04/06/24 05/29/24 History Furosemide [Lasix] 20 mg PO DAILY 04/16/24 05/29/24 History Allergies Allergy/AdvReac Type Severity Reaction Status Date / Time fluticasone AdvReac Nausea Verified 05/29/24 13:44 [From Wixela Inhub] levofloxacin [From Levaquin] AdvReac TENDON PAIN Verified 05/29/24 13:44 salmeterol AdvReac Nausea Verified 05/29/24 13:44 [From Sarenzaxela Inhub] Physical Exam Vitals: Vital Signs Temp Pulse Pulse Resp BP Pulse Ox 05/30/24 16:00 77 18 95/65 95 05/30/24 15:45 80 05/30/24 15:35 72 05/30/24 14:00 16 05/30/24 10:00 72 16 115/79 97 05/30/24 08:00 69 20 05/30/24 07:59 93 L 05/30/24 06:00 97.3 F L 67 18 111/57 94 L 05/30/24 02:46 97.5 F L 67 117/75 97 05/29/24 22:36 70 114/61 100 05/29/24 22:00 81 16 111/73 98 05/29/24 21:16 97 111/73 05/29/24 20:06 93 05/29/24 19:59 98 05/29/24 19:45 97.2 F L 90 20 102/68 99 02/02/25 16:53 97.5 F L 111 H 22 125/77 99 Intake and Output 05/30/24 05/30/24 05/30/24 06:59 14:59 22:59 Other: Voiding Method Urinal GENERAL EXAM: Alert, 78-year-old male patient, on 3 L nasal cannula, comfortable in no apparent distress. HEAD: Normocephalic. EYES: Normal reaction of pupils, equal size. NOSE: Clear with pink turbinates. THROAT: No erythema or exudates. NECK: No masses, no JVD. CHEST: No chest wall deformity. LUNGS: Equal air entry with bilateral scattered rhonchi, wheeze, diminished. CVS: S1 and S2 normal with no audible murmur, regular rhythm. ABDOMEN: No hepatosplenomegaly, normal bowel sounds, no guarding or rigidity. SPINE: No scoliosis or deformity SKIN: No rashes CENTRAL NERVOUS SYSTEM: No focal deficits, tone is normal in all 4 extremities. EXTREMITIES: There is no peripheral edema. No clubbing, no cyanosis. Peripheral pulses are intact. Results - Laboratory Findings CBC and BMP: 05/30/24 06:18 05/30/24 06:18 PT/INR, D-dimer PT 10.2 sec (10.0-12.5) 05/29/24 14:48 INR 0.9 (<1.2) 05/29/24 14:48 Abnormal lab findings: Abnormal Labs 05/29/24 05/29/24 05/29/24 14:48 14:48 14:48 WBC 13.7 H RBC 4.19 L Hgb 11.9 L Hct 35.5 L Neutrophils # 11.2 H Lymphocytes # (Manual) APTT 20.4 L Sodium 131 L Chloride 91 L Carbon Dioxide 33 H Glucose 115 H POC Glucose (mg/dL) Plasma Lactic Acid Sandor Calcium Magnesium 1.5 L AST Troponin I Total Protein 5.5 L Albumin 3.1 L 05/29/24 05/29/24 05/29/24 14:48 14:48 17:28 WBC RBC Hgb Hct Neutrophils # Lymphocytes # (Manual) APTT Sodium Chloride Carbon Dioxide Glucose POC Glucose (mg/dL) 115 H Plasma Lactic Acid Sandor 3.2 H* Calcium Magnesium AST Troponin I 0.036 H* Total Protein Albumin 05/29/24 05/29/24 05/30/24 20:36 20:37 06:18 WBC RBC 3.90 L Hgb 11.1 L Hct 32.6 L Neutrophils # Lymphocytes # (Manual) 0.40 L APTT Sodium Chloride Carbon Dioxide Glucose POC Glucose (mg/dL) 130 H Plasma Lactic Acid Sandor Calcium Magnesium AST Troponin I 0.037 H* Total Protein Albumin 05/30/24 05/30/24 06:18 12:11 WBC RBC Hgb Hct Neutrophils # Lymphocytes # (Manual) APTT Sodium 128 L Chloride 91 L Carbon Dioxide 33 H Glucose 163 H POC Glucose (mg/dL) 154 H Plasma Lactic Acid Sandor Calcium 8.2 L Magnesium AST 16 L Troponin I Total Protein 5.0 L Albumin 2.8 L - Diagnostic Findings Chest x-ray: image reviewed CT scan - chest: image reviewed Assessment and Plan Assessment: Acute COPD exacerbation complicated by a suspected left lower lobe infiltrate possible hospital-acquired pneumonia though procalcitonin negative at 0.12. Viral screen negative for influenza, RSV, COVID. Recent discharge on 05/19/2024. Sputum culture positive for Stenotrophomonas maltophilia and 05/19/2024 Acute on top of chronic hypoxemic respiratory failure, secondary to above Very severe chronic obstructive pulmonary disease, with an FEV1 29% of predic alexa, normally maintained on a combination of Symbicort, Spiriva, albuterol nebs [id number] Chronic hypoxemic respiratory failure, secondary to above, normally oxygen dependent on 2-3 L/min nasal cannula mostly at bedtime Former tobacco dependence, quit smoking over 7 years ago Obesity, with a BMI of 40.3 kg/m Recent hospitalization for acute COVID infection, negative by PCR on this hos pitalization History of hyperlipidemia History of hypertension History of CAD History of peripheral arterial disease Plan: The patient was seen and evaluated Imaging, labs and medications reviewed Recent sputum positive for stenotrophomonas maltophilia Discontinue ceftriaxone and azithromycin Add Bactrim twice daily Continue prednisone taper Continue bronchodilators Titrate the FiO2 as tolerated We will continue to follow and make further recommendations based on his clinical status I have personally seen and examined the patient, performed the documentation and the assessment and plan as written. Number of minutes spent on the visit: 20 Dictation was produced using [employer] dictation software. Please excuse any grammatical, word or spelling errors.
[2024-05-30 17:18] LABS: Glucose,Whole Blood 186 mg/dL (70-110)
[2024-05-30] MEDS: SULFAMETHOX-TMP 800-160MG 1 EACH TAB PO SCH (19:41)
[2024-05-30 19:52] LABS: Glucose,Whole Blood 251 mg/dL (70-110)
[2024-05-31 06:00] LABS: Glucose,Whole Blood 144 mg/dL (70-110)
[2024-05-31 08:19] LABS: Basophils # (A) 0.1 k/uL (0-0.2); Basophils % (A) 0 %; Eosinophils % (A) 0 %; HGB 11.5 gm/dL (13.0-17.5); Lymphocytes # (A) 1.5 k/uL (1.0-4.8); Lymphocytes % (A) 9 %; MCH 27.9 pg (25.0-35.0); MCHC 32.9 g/dL (31.0-37.0); MCV 84.6 fL (80.0-100.0); Mean Platelet Volume 7.3; Monocytes # (A) 0.7 k/uL (0-1.0); Monocytes % (A) 4 %; Neutrophils % (A) 86 %; Platelet Count 383 k/uL (150-450); RBC 4.13 m/uL (4.30-5.90); WBC 16.3 k/uL (3.8-10.6)
[2024-05-31 08:48] LABS: African American GFR (CKD) >90 (>60 ml/min/1.73 sqM); Anion Gap 4 mmol/L; Blood Urea Nitrogen 13 mg/dL (9-20); Calcium 8.9 mg/dL (8.4-10.2); Carbon Dioxide 34 mmol/L (22-30); Chloride 92 mmol/L (98-107); Glucose 122 mg/dL (74-99); Magnesium 1.9 mg/dL (1.6-2.3); Non-African American GFR(CKD) 86 (>60 ml/min/1.73 sqM); Potassium 4.3 mmol/L (3.5-5.1); Sodium 130 mmol/L (137-145)
[2024-05-31 09:12] VITALS: BP 114/68; PULSE 86; RESP 19; TEMP 97.7
--- NOTE | 2024-05-31 13:53 | P.DS ---
Providers Date of admission: 05/29/24 16:09 Expected date of discharge: 05/31/24 Attending physician: Christi Alberto MD Consults: 05/29/24 16:08 Consult Physician Routine Consulting Provider: [facility] Consult Reason/Comments: Elevated troponin Do you want consulting provider notified?: Yes 05/30/24 06:53 Consult Physician Routine Consulting Provider: Manoj Alberto Consult Reason/Comments: COPD, PNA Do you want consulting provider notified?: Yes Primary care physician: Enrrique Reese Hospital Course: Discharge diagnosis: Sepsis secondary to community-acquired pneumonia Chronic respiratory failure COPD with mild exacerbation Elevated troponin, likely type II NSTEMI Hypovolemic hyponatremia HFpEF not in acute exacerbation Bilateral leg edema Neuropathy Near fall [id number] type 2 diabetes Normocytic anemia Hospital Course: Patient is a 78 male with CAD (s/p multiple stent), COPD (3 L home O2 at night only), HFpEF (EF 55-60%), hyperlipidemia, hypertension, myocardial infarction, non-insulin dependent type 2 diabetes, history of bilateral pulmonary embolism, presenting with bilateral foot numbness and shortness of breath. He was admitted here recently due to COPD exacerbation. Patient states numbness in feet woke him up last night from his sleep. He tried getting up to walk it off and nearly fell. Patient denies history of diabetes. Patient also has additional complaint of shortness of breath. States it has been getting worse over the past couple days. Patient endorses increased cough with yellowish sputum production. He denies any sick contacts. Patient denies any fever, chills, headache, chest pain, heart palpitations, abdominal pain, urinary symptoms. EKG independently interpreted displaying sinus tachycardia, rate 108 bpm, QTc 404 MS CXR displaying patchy infiltrate opacities in the left lung base CTA abdominal aorta no acute evidence of acute vascular occlusion/thrombosis, extensive atherosclerotic disease involving the abdominal aorta and lower extremity vasculature, 70% stenosis at right external iliac and right superficial femoral arteries, diminutive flow in the bilateral dorsalis pedis arteries and feet Troponin 0.036 => 0.032, lactic acid 3.2, WBC 13.7., Hgb 11.9, HCT 35.5, sodium 131, potassium 4.4, chloride 91, carbon dioxide 33, creatinine 0.73 T 98.7 F, MT 61, RR 29, BP 115/66, O2 96% on room air Patient was admitted to internal medicine service for further evaluation of pneumonia and mild COPD exacerbation. Pulmonology was consulted. Blood culture showed no growth. However previous sputum cultures showed Stenotrophomonas maltophilia. Patient placed on the proper antibiotics for his pneumonia. While here patient was on the proper breathing treatment for his acute exacerbation. Patient was also given oral steroid for his exacerbation. Patient is to finish course of oral steroids at home. Patient also being discharged with azithromycin and is to take that every Thursday, Thursday, and Thursday to decrease risk of hospital readmission. Also being sent home with oral antibiotic for his pneumonia. Patient is to follow-up with PCP and pulmonology. Patient is being discharged home. Patient has had high risk for readmission. [facility] Vital signs reviewed and stable. Physical examination: Vital signs reviewed General: non toxic, no distress, appears at stated age, normal weight Derm: no unusual rashes/lesions, warm Head: atraumatic, normocephalic, symmetric Eyes: EOMI, anicteric sclera, pupils equal round reactive to light ENT: Nose and ears atraumatic Neck: No cervical lymphadenopathy, trachea midline, supple Mouth: no lip lesion, mucus membranes moist Cardiovascular: S1S2 reg, no murmur, positive dorsalis pedis pulse bilateral, no edema Lungs: Diminished lung sounds bilaterally Abdominal: soft, nontender to palpation, no guarding Ext: muscle strength 5 out of 5 in all 4 extremities grossly, no gross muscle atrophy Neuro: CN II-XI grossly intact, no gross focal neuro deficits Psych: Alert, oriented to person, place, and time A total of greater than 30 minutes of time were spent preparing this complex discharge summary. Patient was discharge on May 19, 2024 at 1:58 PM Ross Kwan MD PGY-1 IM Dictation was produced using [email or web address] dictation software. please excuse any grammatical, word or spelling errors. I have seen and evaluated the patient today. Discussed with the resident and agree with the residents finding and plan as documented in the resident's note. Changes highlighted in blue font. Patient Condition at Discharge: Stable Plan - Discharge Summary Discharge Rx Participant: No New Discharge Prescriptions: New Sulfamethox-Tmp 800-160Mg [Bactrim DS 800-160 mg] 1 each PO BID 6 Days #11 tab Azithromycin [Zithromax] See Rx Instructions .ROUTE .COMPLEX #1 tab predniSONE [Deltasone] 40 mg PO DAILY 3 Days #6 tab Continue Aspirin EC [Ecotrin Low Dose] 81 mg PO DAILY Budesonide/Formoterol Fumarate [Symbicort 160-4.5 Mcg Inhaler] 2 puff INHALATION RT-BID Ipratropium/Albuterol Sulfate [Combivent Respimat Inhaler] 1 puff INHALATION RT-QID Metoprolol Tartrate [Lopressor] 25 mg PO BID Clopidogrel Bisulfate [Plavix] 75 mg PO DAILY Tiotropium 18 Mcg/Puff [Spiriva] 2 puff INHALATION RT-DAILY Simvastatin [Zocor] 40 mg PO HS Albuterol Nebulized [Ventolin Nebulized] 2.5 mg INHALATION RT-QID Loratadine [Claritin] 10 mg PO DAILY Albuterol Inhaler [Ventolin Hfa Inhaler] 2 puff INHALATION RT-TID PRN PRN Reason: Shortness Of Breath Cholecalciferol [Vitamin D3 (25 Mcg = 1000 Iu)] 25 mcg PO BID Furosemide [Lasix] 20 mg PO DAILY Ferrous Sulfate [Iron (65 MG Elemental)] 325 mg PO W/LUNCH Folic Acid 1 mg PO DAILY Vitamin B-12 50mcg 50 mcg PO DAILY Discharge Medication List Aspirin EC [Ecotrin Low Dose] 81 mg PO DAILY 06/22/18 [History] Budesonide/Formoterol Fumarate [Symbicort 160-4.5 Mcg Inhaler] 2 puff INHALATION RT-BID 06/22/18 [History] Ipratropium/Albuterol Sulfate [Combivent Respimat Inhaler] 1 puff INHALATION RT- QID 06/22/18 [History] Metoprolol Tartrate [Lopressor] 25 mg PO BID 06/22/18 [History] Clopidogrel Bisulfate [Plavix] 75 mg PO DAILY 07/01/18 [History] Albuterol Inhaler [Ventolin Hfa Inhaler] 2 puff INHALATION RT-TID PRN 12/07/19 [History] Albuterol Nebulized [Ventolin Nebulized] 2.5 mg INHALATION RT-QID 12/07/19 [History] Loratadine [Claritin] 10 mg PO DAILY 12/07/19 [History] Simvastatin [Zocor] 40 mg PO HS 12/07/19 [History] Tiotropium 18 Mcg/Puff [Spiriva] 2 puff INHALATION RT-DAILY 12/07/19 [History] Cholecalciferol [Vitamin D3 (25 Mcg = 1000 Iu)] 25 mcg PO BID 03/17/24 [History] Ferrous Sulfate [Iron (65 MG Elemental)] 325 mg PO W/LUNCH 04/06/24 [History] Folic Acid 1 mg PO DAILY 04/06/24 [History] Vitamin B-12 50mcg 50 mcg PO DAILY 04/06/24 [History] Furosemide [Lasix] 20 mg PO DAILY 04/16/24 [History] Azithromycin [Zithromax] See Rx Instructions .ROUTE .COMPLEX #1 tab 05/31/24 [Rx] Sulfamethox-Tmp 800-160Mg [Bactrim DS 800-160 mg] 1 each PO BID 6 Days #11 tab 05/31/24 [Rx] predniSONE [Deltasone] 40 mg PO DAILY 3 Days #6 tab 05/31/24 [Rx] Follow up Appointment(s)/Referral(s): Ayad Goddard DO [Doctor of Osteopathic Medicine] - 1 Week [facility] [REFERRING] - 1-2 days Patient Instructions/Handouts: Hyponatremia (DC), COPD (Chronic Obstructive Pulmonary Disease) (DC), Pneumonia (DC) Activity/Diet/Wound Care/Special Instructions: Please see PCP and Pulmonology. Discharge Disposition: HOME SELF-CARE
--- NOTE | 2024-05-31 14:00 | P.PN ---
Subjective HISTORY OF PRESENT ILLNESS: This is a 78-year-old male with a past medical history significant for coronary artery disease, hypertension, hyperlipidemia, COPD, and obesity. Patient follows in the office with Dr. Camacho. We have been asked to see the patient in consultation for elevated troponin. Patient examined at the bedside in the emergency room. Patient presented to the hospital with a chief complaint of congestion. He states that he has been feeling short of breath. He also reports a cough with sputum production. He denies any chest pain or pressure. DIAGNOSTICS: - EKG reveals sinus tachycardia with nonspecific ST-T wave changes - Chest xray similar patchy airspace opacities within the left lung base suspicious for pneumonia - Venous Doppler: Negative for DVT of bilateral lower extremities - Laboratory data: WBC 7.9. Hemoglobin 11.1. Platelet count 319. Sodium 128. Potassium 4.5. BUN 11. Creatinine 0.68. Troponin 0.036. 0.032. 0.037. - Current home cardiac medications include aspirin 81 mg daily, Plavix 75 mg da judi, Lasix 20 mg daily, metoprolol tartrate 25 mg twice a day, simvastatin 40 mg at night. - Most recent echocardiogram obtained in March 2024 revealed ejection fraction 55 to 60%, trace to mild TR - Cardiac catheterization history: February 2011 with stenting to the proximal RCA 05/31/2024 Patient examined this morning. Patient is sitting on the side of the bed. Patient denies any chest pain or pressure. She denies any shortness of breath. Vital signs are stable. Patient is eager to go home today. PHYSICAL EXAM: VITAL SIGNS: Reviewed. GENERAL: Well-developed in no acute distress. HEENT: Head is normocephalic. Pupils are equal, round. Sclerae anicteric. Mucous membranes of the mouth are moist. Neck supple. No JVD or thyromegaly LUNGS: Respirations even and unlabored. Lungs clear bilaterally HEART: Regular rate and rhythm. S1 and S2 heard. ABDOMEN: Soft. Nondistended. Nontender. EXTREMITIES: Normal range of motion. No clubbing or cyanosis. Peripheral pulses intact. Trace bilateral lower extremity edema NEUROLOGIC: Awake and alert. Oriented x 3. ASSESSMENT: Pneumonia Coronary artery disease with previous stenting to the proximal RCA, 2010 Mild COPD exacerbation Minimally elevated troponins, likely type II NH secondary to oxygen supply and demand mismatch, no evidence of acute coronary syndrome Chronic heart failure with preserved EF, currently euvolemic History of ischemic cardiomyopathy with improved EF, most recently 55 to 60% Hypertension Hyperlipidemia PLAN: Continue current cardiac medications No plans for invasive testing from a cardiac standpoint Patient may be discharged today from a cardiac standpoint Patient to follow-up postdischarge with Dr. Camacho Nurse practitioner note has been reviewed by physician. Signing provider agrees with the documented findings, assessment, and plan of care documented by [employer]IST as a scribe. Objective - Vital Signs Vital signs: Vital Signs Temp 97.7 F 05/31/24 09:00 Pulse 86 05/31/24 09:01 Resp 19 05/31/24 09:00 BP 114/68 05/31/24 09:00 Pulse Ox 99 05/31/24 09:00 FiO2 Intake & Output 05/30/24 05/31/24 05/31/24 18:59 06:59 18:59 Intake Total 10 118 Balance 10 118 Weight 115.3 kg Intake: IV 10 Invasive Line 1 10 Oral 118 Other: Voiding Method Urinal Toilet Toilet # Voids 1 - Labs CBC & Chem 7: 05/31/24 07:11 05/31/24 07:11 Labs: Abnormal Lab Results - Last 24 Hours (Table) 05/30/24 05/30/24 05/31/24 Range/Units 17:17 19:50 05:58 WBC (3.8-10.6) k/uL RBC (4.30-5.90) m/uL Hgb (13.0-17.5) gm/dL Hct (39.0-53.0) % Neutrophils # (1.3-7.7) k/uL Sodium (137-145) mmol/L Chloride (98-107) mmol/L Carbon Dioxide (22-30) mmol/L Glucose (74-99) mg/dL POC Glucose (mg/dL) 186 H 251 H 144 H (70-110) mg/dL 05/31/24 05/31/24 Range/Units 07:11 07:11 WBC 16.3 H (3.8-10.6) k/uL RBC 4.13 L (4.30-5.90) m/uL Hgb 11.5 L (13.0-17.5) gm/dL Hct 35.0 L (39.0-53.0) % Neutrophils # 14.0 H (1.3-7.7) k/uL Sodium 130 L (137-145) mmol/L Chloride 92 L (98-107) mmol/L Carbon Dioxide 34 H (22-30) mmol/L Glucose 122 H (74-99) mg/dL POC Glucose (mg/dL) (70-110) mg/dL Microbiology - Last 24 Hours (Table) 05/29/24 16:01 Blood Culture - Preliminary Blood
== END 2024-05-31 10:10 | disposition home health service (06) | DRG 871 ==
LOC: EC 13:37 → 3SCARD 16:08 → OBSVTOIN 16:09 → 3SCARD 19:12
PROVIDERS: ADMIT Family Medicine; ATTEND Family Medicine
DX: A41.9 Sepsis, unspecified organism (principal); I21.A1 Myocardial infarction type 2; J18.9 Pneumonia, unspecified organism; J96.21 Acute and chronic respiratory failure with hypoxia; E87.20 Acidosis, unspecified; E87.1 Hypo-osmolality and hyponatremia; E11.40 Type 2 diabetes mellitus with diabetic neuropathy, unspecified; D64.9 Anemia, unspecified; J44.1 Chronic obstructive pulmonary disease with (acute) exacerbation; I50.32 Chronic diastolic (congestive) heart failure; Z68.41 Body mass index [BMI] 40.0-44.9, adult; I11.0 Hypertensive heart disease with heart failure; F32.A Depression, unspecified; J44.0 Chronic obstructive pulmonary disease with (acute) lower respiratory infection; E11.51 Type 2 diabetes mellitus with diabetic peripheral angiopathy without gangrene; E66.9 Obesity, unspecified; E86.1 Hypovolemia; E78.5 Hyperlipidemia, unspecified; G89.29 Other chronic pain; M54.40 Lumbago with sciatica, unspecified side; F43.10 Post-traumatic stress disorder, unspecified; E83.42 Hypomagnesemia; I25.10 Atherosclerotic heart disease of native coronary artery without angina pectoris; K21.9 Gastro-esophageal reflux disease without esophagitis; I25.5 Ischemic cardiomyopathy; I25.2 Old myocardial infarction; Z99.81 Dependence on supplemental oxygen; Z87.891 Personal history of nicotine dependence; Z79.82 Long term (current) use of aspirin; Z79.51 Long term (current) use of inhaled steroids; Z79.02 Long term (current) use of antithrombotics/antiplatelets; Z79.899 Other long term (current) drug therapy; Z95.5 Presence of coronary angioplasty implant and graft; Z86.711 Personal history of pulmonary embolism; Z88.1 Allergy status to other antibiotic agents; Z88.8 Allergy status to other drugs, medicaments and biological substances
CPT/HCPCS: 36415; 71045; 71046; 75635; 80048; 80053; 83605; 83735; 83880; 84145; 84484; 85025; 85610; 85730; 87040; 87449; 87636; 93005; 93970; 94640; 96361; 96365; 96366; 96367; 96372; 96375; 99285

== ENCOUNTER 2024-06-14 18:02 | Inpatient (IN) | payer OTHER, MEDICARE ==
[2024-06-14] MEDS: IPRATROPIUM-ALBUTEROL 3 ML NEB INHALATION STA (18:19)
[2024-06-14] MEDS: methylPREDNISolone SOD SUCCI 125 MG/2 ML VIAL IV STA (18:33)
[2024-06-14] MEDS: SODIUM CHLORIDE 0.9% 500 ML 500 ML IV STA (18:35)
--- NOTE | 2024-06-14 19:14 | XR ---
EXAMINATION TYPE: XR chest 2V DATE OF EXAM: 06/14/2024 7:06 PM COMPARISON: 06/10/2024 CLINICAL INDICATION: Male, 78 years old with history of difficulty breathing; [facility] TECHNIQUE: XR chest 2V Frontal and lateral views of the chest. FINDINGS: Lungs/Pleura: There is flattening of the diaphragm with increased lucency of the lungs. No evidence o f pneumothorax, pleural effusion or focal consolidation. Pulmonary vascularity: Unremarkable. Heart/mediastinum: Cardiomediastinal silhouette is unremarkable. Musculoskeletal: No acute osseous pathology. IMPRESSION: 1. No acute cardiopulmonary disease process. 2. COPD changes. [facility], , 06/14/2024 7:12 PM
[2024-06-14] MEDS: MAGNESIUM SULFATE-D5W PMX 1 GM in DEXTROSE/WATER 1 100ML.BAG IVPB ONE (19:37)
[2024-06-14 19:42] LABS: Basophils # (A) 0.1 k/uL (0-0.2); Basophils % (A) 1 %; Eosinophils # (A) 0.1 k/uL (0-0.7); Eosinophils % (A) 1 %; HCT 29.6 % (39.0-53.0); HGB 9.8 gm/dL (13.0-17.5); Lymphocytes # (A) 3.3 k/uL (1.0-4.8); Lymphocytes % (A) 23 %; MCH 28.6 pg (25.0-35.0); MCHC 33.2 g/dL (31.0-37.0); MCV 86.3 fL (80.0-100.0); Mean Platelet Volume 7.1; Monocytes # (A) 0.9 k/uL (0-1.0); Monocytes % (A) 6 %; Neutrophils # (A) 9.5 k/uL (1.3-7.7); Neutrophils % (A) 66 %; RBC 3.43 m/uL (4.30-5.90); RDW 15.7 % (11.5-15.5); WBC 14.3 k/uL (3.8-10.6)
[2024-06-14 19:54] LABS: Platelet Count 452 k/uL (150-450)
[2024-06-14 20:01] LABS: ALT 21 U/L (4-49); AST 19 U/L (17-59); African American GFR (CKD) >90 (>60 ml/min/1.73 sqM); Albumin 3.6 g/dL (3.5-5.0); Alkaline Phosphatase 68 U/L (38-126); Anion Gap 6 mmol/L; Blood Urea Nitrogen 14 mg/dL (9-20); Carbon Dioxide 32 mmol/L (22-30); Chloride 97 mmol/L (98-107); Glucose 107 mg/dL (74-99); INR 0.9 (<1.2); Magnesium 1.8 mg/dL (1.6-2.3); Non-African American GFR(CKD) 87 (>60 ml/min/1.73 sqM); Potassium 4.2 mmol/L (3.5-5.1); Prothrombin Time 9.8 sec (10.0-12.5); Sodium 135 mmol/L (137-145); Total Bilirubin 0.6 mg/dL (0.2-1.3); Total Protein 6.2 g/dL (6.3-8.2)
[2024-06-14 20:06] LABS: Partial Thromboplastin Time 16.3 sec (22.0-30.0)
[2024-06-14 20:20] LABS: Influenza A Not Detected (Not Detectd); Influenza B Not Detected (Not Detectd); RSV Not Detected (Not Detectd)
[2024-06-14] MEDS ORDERED: ONDANSETRON 4 MG/2 ML VIAL IVP PRN (21:12)
[2024-06-14] MEDS ORDERED: NALOXONE 0.4 MG/ML 1 ML VIAL IV PRN (21:12)
--- NOTE | 2024-06-14 21:15 | ED ---
General Adult HPI - General Chief complaint: Shortness of Breath Stated complaint: DAVID Time Seen by Provider: 06/14/24 18:10 Source: patient, EMS, RN notes reviewed, old records reviewed Mode of arrival: EMS - History of Present Illness Initial comments: The patient is a 78-year-old male who presents emergency department complaining of weakness, shortness of breath. Is here frequently for similar complaints. I admitted the patient last week for similar complaints and he returns today. He is wheezy bilaterally. States he attempted home treatments without much i mprovement. Was not discharged home on steroids. Presents for further evaluation at this time. Dors is a productive cough of his typical sputum. Denies any chest pain. Denies nausea or vomiting or diarrhea. No known sick contacts. Chronically on 3 L nasal cannula oxygen at home. - Related Data Home Medications Medication Instructions Recorded Confirmed Aspirin EC [Ecotrin Low Dose] 81 mg PO DAILY 06/22/18 06/14/24 Budesonide/Formoterol Fumarate 2 puff INHALATION RT-BID 06/22/18 06/14/24 [Symbicort 160-4.5 Mcg Inhaler] Ipratropium/Albuterol Sulfate 1 puff INHALATION RT-QID 06/22/18 06/14/24 [Combivent Respimat Inhaler] Metoprolol Tartrate [Lopressor] 25 mg PO BID 06/22/18 06/14/24 Clopidogrel Bisulfate [Plavix] 75 mg PO DAILY 07/01/18 06/14/24 Albuterol Inhaler [Ventolin Hfa 2 puff INHALATION RT-TID PRN 12/07/19 06/14/24 Inhaler] Albuterol Nebulized [Ventolin 2.5 mg INHALATION RT-QID 12/07/19 06/14/24 Nebulized] Loratadine [Claritin] 10 mg PO DAILY 12/07/19 06/14/24 Simvastatin [Zocor] 40 mg PO HS 12/07/19 06/14/24 Tiotropium 18 Mcg/Puff [Spiriva] 2 puff INHALATION RT-DAILY 12/07/19 06/14/24 Cholecalciferol [Vitamin D3 (25 25 mcg PO BID 03/17/24 06/14/24 Mcg = 1000 Iu)] Ferrous Sulfate [Iron (65 MG 325 mg PO W/LUNCH 04/06/24 06/14/24 Elemental)] Folic Acid 1 mg PO DAILY 04/06/24 06/14/24 Vitamin B-12 50mcg 50 mcg PO DAILY 04/06/24 06/14/24 Furosemide [Lasix] 20 mg PO DAILY 04/16/24 06/14/24 Azithromycin [Zithromax] 500 mg PO MOWEFR 06/09/24 06/14/24 Previous Rx's Medication Instructions Recorded Gabapentin [Neurontin] 200 mg PO TID #90 cap 06/11/24 Allergies Allergy/AdvReac Type Severity Reaction Status Date / Time fluticasone AdvReac Nausea Verified 06/14/24 20:36 [From Wixela Inhub] levofloxacin [From Levaquin] AdvReac TENDON PAIN Verified 06/14/24 20:36 salmeterol AdvReac Nausea Verified 06/14/24 20:36 [From Wixela Inhub] Review of Systems ROS Statement: Those systems with pertinent positive or pertinent negative responses have been documented in the HPI. Review of Systems: CONST: Denies fever EYES: Denies blurry vision ENT: Denies nasal congestion C/V: Denies Chest pain RESP: Endorses shortness of breath, wheezing GI: Denies abdominal pain : Denies dysuria SKIN: Denies rash. MSK: Denies joint pain. NEURO: Denies headache ROS Other: All systems not noted in ROS Statement are negative. Past Medical History Past Medical History: Coronary Artery Disease (CAD), COPD, GERD/Reflux, Hyperlipidemia, Hypertension, [place]ocardial Infarction ([place]), Pulmonary Embolus (PE), Renal Disease Additional Past Medical History / Comment(s): home O2 (3L [place]), bilateral PEs in 2003, history ETOH abuse - pt states he has never had withdrawal symptoms, chronic low back pain/sciatica/spurs/disc disease - much improved after back injections, past urinary retention, diverticulitis/benign colon polyps removed, nephrolithiasis - passed stones on his own, shingelles 16 years ago - R shoulder. Last Myocardial Infarction Date:: 2010 History of Any Multi-Drug Resistant Organisms: None Reported Past Surgical History: Heart Catheterization With Stent Additional Past Surgical History / Comment(s): back injections for pain, piece of metal removed from right eye, EGD, colonoscopy Past Anesthesia/Blood Transfusion Reactions: No Reported Reaction Additional Past Anesthesia/Blood Transfusion Reaction / Comment(s): claustrophobia Date of Last Stent Placement:: 2010 Past Psychological History: Anxiety, Depression, PTSD Smoking Status: Former smoker Past Alcohol Use History: None Reported Past Drug Use History: None Reported - Past Family History Mother Family Medical History: Cancer Additional Family Medical History / Comment(s): from breast cancer at age 53. Father Family Medical History: Coronary Artery Disease (CAD), Myocardial Infarction ([place]) Additional Family Medical History / Comment(s): 4 MIs/CABG. at age 72. General Exam - General Exam Comments Initial Comments: General: Appears in mild respiratory distress. HEAD: Normal with no signs of head trauma. EYES: PERRLA, EOMI, conjunctiva normal, no discharge. ENT: Hearing grossly intact, normal oropharynx. RESPIRATORY: Bilateral end expiratory wheezing. Normoxic on his baseline 3 L nasal cannula oxygen. No significant increased work of breathing. C/V: Regular rate and rhythm. S1 and S2 auscultated, no edema, peripheral pulses 2+ and intact throughout ABD: Abd is soft, nontender, nondistended EXT: Normal range of motion, no obvious deformity SKIN: No rashes or lesions observed on exposed skin. NEURO: Alert and oriented x 4. Course Vital Signs 06/14/24 06/14/24 06/14/24 18:04 18:07 18:20 Pulse Rate 93 69 62 Respiratory 22 18 Rate Blood Pressure 87/70 98/71 O2 Sat by Pulse 99 Oximetry 06/14/24 06/14/24 06/14/24 18:26 18:33 19:41 Pulse Rate 68 70 92 Respiratory 20 Rate Blood Pressure 107/75 O2 Sat by Pulse 98 Oximetry Medical Decision Making - Medical Decision Making Was pt. sent in by a medical professional or institution (, PA, MOTORCYCLE FABRICATOR, urgent care, hospital, or halfway...) When possible be specific @ -No Did you speak to anyone other than the patient for history (EMS, parent, family, police, friend...)? What history was obtained from this source @ -No Did you review nursing and triage notes (agree or disagree)? Why? @ -I reviewed and agree with nursing and triage notes Were old charts reviewed (outside hosp., previous admission, EMS record, old EKG, old radiological studies, urgent care reports/EKG's, halfway records)? Report findings @ -Reviewed recent visit when patient was admitted for COPD and pneumonia Differential Diagnosis (chest pain, altered mental status, abdominal pain women, abdominal pain men, vaginal bleeding, weakness, fever, dyspnea, syncope, headache, dizziness, GI bleed, back pain, seizure, CVA, palpatations, mental health, musculoskeletal)? @ -Differential Dyspnea: Coronary syndrome, arrhythmia, tamponade, asthma, COPD, pulmonary embolism, pneumonia, pneumothorax, pulmonary effusion, anaphylaxis, diabetic ketoacidosis, flailed chest, pulmonary contusion, diaphragmatic rupture, anemia, neuromuscular, this is not meant to be an all-inclusive list. EKG interpreted by me (3pts min.). @ -As above X-rays interpreted by me (1pt min.). @ -Chest x-ray shows no obvious acute infiltrate or acute cardiopulmonary process. CT interpreted by me (1pt min.). @ -None done U/S interpreted by me (1pt. min.). @ -None done What testing was considered but not performed or refused? (CT, X-rays, U/S, labs)? Why? @ -None What meds were considered but not given or refused? Why? @ -None Did you discuss the management of the patient with other professionals (professionals i.e. , PA, MOTORCYCLE FABRICATOR, lab, RT, psych nurse, social media developer, airline mechanic, teacher, air force senior officer, case folder)? Give summary @ -Discussed with admitting provider, Dr. Dale who accepted the admission. Was smoking cessation discussed for >3mins.? @ -No Was critical care preformed (if so, how long)? @ -No Were there social determinants of health that impacted care today? How? (Homelessness, low income, unemployed, alcoholism, drug addiction, transportation, low edu. Level, literacy, decrease access to med. care, fpc, rehab)? @ -No Was there de-escalation of care discussed even if they declined (Discuss DNR or withdrawal of care, Hospice)? DNR status @ -No What co-morbidities impacted this encounter? (DM, HTN, Smoking, COPD, CAD, Canc er, CVA, ARF, Chemo, Hep., AIDS, mental health diagnosis, sleep apnea, morbid obesity)? @ -COPD Was patient admitted / discharged? Hospital course, mention meds given and route, prescriptions, significant lab abnormalities, going to OR and other pertinent info. @ -Based on the patient's presentation and physical exam, presents for what appears to be COPD exacerbation. No significant other acute complaints at this time. Vital signs within acceptable limits. He will be given a small fluid mary kay us, IV steroids, as well as breathing treatment. Patient was in agreement this plan. Chest x-ray unremarkable. EKG unremarkable. Labs remarkable for chronic anemia that appears stable as well as slightly elevated leukocytosis of 14 which is likely secondary to recent steroid use. Viral swabs negative. Following breathing treatments, patient is feeling improved however is still wheezy. Patient will be admitted for observation for COPD exacerbation. No concern for bronchitis or infectious etiology at this time as he was also recently on antibiotics. Patient was in agreement this plan. Discussed with admitting provider, Dr. Dale who accepted the admission. Undiagnosed new problem with uncertain prognosis? @ -No Drug Therapy requiring intensive monitoring for toxicity (Heparin, Nitro, Insulin, Cardizem)? @ -No Were any procedures done? @ -No Diagnosis/symptom? @ -COPD Acute, or Chronic, or Acute on Chronic? @ -Acute Uncomplicated (without systemic symptoms) or Complicated (systemic symptoms)? @ -Complicated Side effects of treatment? @ -No Exacerbation, Progression, or Severe Exacerbation? @ -No Poses a threat to life or bodily function? How? (Chest pain, [place], [place], pneumonia, PE, COPD, DKA, ARF, appy, cholecystitis, CVA, Diverticulitis, Homicidal, Suicidal, threat to staff... and all critical care pts) @ -Potentially, yes Diagnosis/symptom? @ -Hypoxic respiratory failure Acute, or Chronic, or Acute on Chronic? @ -Chronic Uncomplicated (without systemic symptoms) or Complicated (systemic symptoms)? @ -Complicated Side effects of treatment? @ -None Exacerbation, Progression, or Severe Exacerbation] @ -No Poses a threat to life or bodily function? @ -Unlikely at this time - Lab Data Result diagrams: 06/14/24 19:34 06/14/24 19:34 Lab Results 06/14/24 06/14/24 06/14/24 Range/Units 19:34 19:34 19:34 WBC 14.3 H (3.8-10.6) k/uL RBC 3.43 L (4.30-5.90) m/uL Hgb 9.8 L (13.0-17.5) gm/dL Hct 29.6 L (39.0-53.0) % MCV 86.3 (80.0-100.0) fL MCH 28.6 (25.0-35.0) pg MCHC 33.2 (31.0-37.0) g/dL RDW 15.7 H (11.5-15.5) % Plt Count 452 H D (150-450) k/uL MPV 7.1 Neutrophils % 66 % Lymphocytes % 23 % Monocytes % 6 % Eosinophils % 1 % Basophils % 1 % Neutrophils # 9.5 H (1.3-7.7) k/uL Lymphocytes # 3.3 (1.0-4.8) k/uL Monocytes # 0.9 (0-1.0) k/uL Eosinophils # 0.1 (0-0.7) k/uL Basophils # 0.1 (0-0.2) k/uL PT 9.8 L (10.0-12.5) sec INR 0.9 (<1.2) APTT 16.3 L (22.0-30.0) sec Sodium 135 L (137-145) mmol/L Potassium 4.2 (3.5-5.1) mmol/L Chloride 97 L (98-107) mmol/L Carbon Dioxide 32 H (22-30) mmol/L Anion Gap 6 mmol/L BUN 14 (9-20) mg/dL Creatinine 0.80 (0.66-1.25) mg/dL Est GFR (CKD-EPI)AfAm >90 (>60 ml/min/1.73 sqM) Est GFR (CKD-EPI)NonAf 87 (>60 ml/min/1.73 sqM) Glucose 107 H (74-99) mg/dL Plasma Lactic Acid Sandor (0.7-2.0) mmol/L Calcium 9.0 (8.4-10.2) mg/dL Magnesium 1.8 (1.6-2.3) mg/dL Total Bilirubin 0.6 (0.2-1.3) mg/dL AST 19 (17-59) U/L ALT 21 (4-49) U/L Alkaline Phosphatase 68 (38-126) U/L Total Protein 6.2 L (6.3-8.2) g/dL Albumin 3.6 (3.5-5.0) g/dL Influenza Type A (PCR) (Not Detectd) Influenza Type B (PCR) (Not Detectd) RSV (PCR) (Not Detectd) SARS-CoV-2 (PCR) (Not Detectd) 06/14/24 06/14/24 Range/Units 19:34 19:34 WBC (3.8-10.6) k/uL RBC (4.30-5.90) m/uL Hgb (13.0-17.5) gm/dL Hct (39.0-53.0) % MCV (80.0-100.0) fL MCH (25.0-35.0) pg MCHC (31.0-37.0) g/dL RDW (11.5-15.5) % Plt Count (150-450) k/uL MPV Neutrophils % % Lymphocytes % % Monocytes % % Eosinophils % % Basophils % % Neutrophils # (1.3-7.7) k/uL Lymphocytes # (1.0-4.8) k/uL Monocytes # (0-1.0) k/uL Eosinophils # (0-0.7) k/uL Basophils # (0-0.2) k/uL PT (10.0-12.5) sec INR (<1.2) APTT (22.0-30.0) sec Sodium (137-145) mmol/L Potassium (3.5-5.1) mmol/L Chloride (98-107) mmol/L Carbon Dioxide (22-30) mmol/L Anion Gap mmol/L BUN (9-20) mg/dL Creatinine (0.66-1.25) mg/dL Est GFR (CKD-EPI)AfAm (>60 ml/min/1.73 sqM) Est GFR (CKD-EPI)NonAf (>60 ml/min/1.73 sqM) Glucose (74-99) mg/dL Plasma Lactic Acid Sandor 2.0 (0.7-2.0) mmol/L Calcium (8.4-10.2) mg/dL Magnesium (1.6-2.3) mg/dL Total Bilirubin (0.2-1.3) mg/dL AST (17-59) U/L ALT (4-49) U/L Alkaline Phosphatase (38-126) U/L Total Protein (6.3-8.2) g/dL Albumin (3.5-5.0) g/dL Influenza Type A (PCR) Not Detected (Not Detectd) Influenza Type B (PCR) Not Detected (Not Detectd) RSV (PCR) Not Detected (Not Detectd) SARS-CoV-2 (PCR) Not Detected (Not Detectd) - EKG Data -: EKG Interpreted by Me EKG Comments: 12-lead Electrocardiogram Interpretation Note EKG was reviewed and interpreted by myself. 12-lead ECG performed at 1825 is interpreted by me as revealing normal sinus rhythm at a rate of 90 beats per minute. [place] is normal. MO interval is 150 ms, QRS duration is 93 ms, QTc is 3 to 95 ms.. There were no ST or T wave abnormalities to suggest myocardial ischemia or injury. R wave progression across the precordium was satisfactory. By my interpretation this EKG is non-diagnostic for acute ischemia. Compared with EKG from June 09, 2024 with no significant change. Disposition Clinical Impression: COPD (chronic obstructive pulmonary disease), Chronic hypoxic respiratory failure Disposition: ADMITTED IP TO THIS HOSP Condition: Stable Time of Disposition: 21:15
[2024-06-14] MEDS ORDERED: ALBUTEROL HFA INHALER INHALATION PRN (21:51)
[2024-06-14] MEDS ORDERED: IPRATROPIUM-ALBUTEROL 3 ML NEB INHALATION PRN (21:55)
[2024-06-14] MEDS ORDERED: ALBUTEROL NEBULIZED 2.5 MG/3 ML INHALATION PRN (22:03)
[2024-06-15] MEDS ORDERED: IPRATROPIUM-ALBUTEROL 3 ML NEB INHALATION SCH
[2024-06-15] MEDS: GABAPENTIN 100 MG CAP PO SCH (00:32)
[2024-06-15] MEDS: methylPREDNISolone SOD SUCCI 40 MG/ML 1 ML VIAL IV SCH ×2 (00:33→12:57)
--- NOTE | 2024-06-15 05:46 | P.CNPUL ---
History of Present Illness Consult date: 06/15/24 Requesting physician: Tobias Cagle Reason for consult: COPD Chief complaint: Acute on chronic shortness of breath History of present illness: Patient is a 78-year-old male with past medical history significant for very severe oxygen dependent COPD. He has had frequent hospitalizations for COPD, and was just recently discharged on 06/11/2024 for the same. His FEV1 is 29% of predicted. He is oxygen dependent at baseline. Utilizes a combination of albuterol nebs, Symbicort inhaler, and Spiriva. Also, has past medical history significant for hypertension, hyperlipidemia, coronary artery disease with previous PCI/stenting. Most recent echocardiogram from March, showing preserved left ventricular ejection fraction of 55 to 60%. As stated above, patient recently hospitalized and discharged on 06/11/2024 for acute COPD exacerbation. He was discharged on a steroid taper. He returned to the emergency department last night. Patient is chronically short of breath, especially worse on exertion. Particularly, over the last 24 hours he has developed severe dyspnea with minimal to no activity. Increased cough frequency with yellow sputum production. Denies any fever/chills, hemoptysis, chest pain. Denies nausea, vomiting, diarrhea, abdominal pain. Workup in the emergency department including a chest x-ray which did not show any acute infiltrates or evidence of pneumonia. Viral screen negative for influenza A/B, RSV, COVID. CBC: WC count 14.3, hemoglobin 9.8, platelets 452. CMP: Sodium 135 potassium 4.2, chloride 97, serum bicarb 32, BUN 14, creatinine 0.8, glucose 107. LFTs not elevated. Patient currently being evaluated emergency department. He is lying on his left side, on 6 L/min nasal cannula, tachypneic, congested cough. Endorses above-mentioned symptoms. He denies any chest pain, palpitations, lightheadedness, orthopnea, PND. Does have pitting lower extremity edema. Current vital signs: Temperature 97.5 F, heart rate 86 bpm, blood pressure 105/77 mmHg, tachypneic breathing in the mid 20s, SpO2 reading 97% on his 6 L/min nasal cannula. Review of Systems Constitutional: Reports poor appetite. Denies chills, Denies fatigue, Denies fever, Denies weight loss or weight gain Ears, nose, mouth and throat: Denies nasal congestion, Denies nasal discharge, Denies post-nasal drip, Denies sinus pain, Denies sinus pressure, Denies sore throat Cardiovascular: Reports dyspnea on exertion, Denies leg edema, Denies chest pain, Denies orthopnea, Denies palpitations, Denies paroxysmal nocturnal dyspnea, Denies syncope Respiratory: Reports as per HPI Gastrointestinal: Reports loss of appetite, Denies abdominal pain, Denies constipation, Denies diarrhea, Denies nausea, Denies vomiting Genitourinary: Denies dysuria Musculoskeletal: Denies limitation of motion Integumentary: Denies rash Neurological: Denies seizures, Denies syncope Psychiatric: Denies anxiety, Denies depression Past Medical History Past Medical History: Coronary Artery Disease (CAD), COPD, GERD/Reflux, Hyperlipidemia, Hypertension, Myocardial Infarction ([place]), Pulmonary Embolus (PE), Renal Disease Additional Past Medical History / Comment(s): home O2 (3L [place]), bilateral PEs in 2003, history ETOH abuse - pt states he has never had withdrawal symptoms, chronic low back pain/sciatica/spurs/disc disease - much improved after back injections, past urinary retention, diverticulitis/benign colon polyps removed, nephrolithiasis - passed stones on his own, shingelles 16 years ago - R shoulder. Last Myocardial Infarction Date:: 2010 History of Any Multi-Drug Resistant Organisms: None Reported Past Surgical History: Heart Catheterization With Stent Additional Past Surgical History / Comment(s): back injections for pain, piece of metal removed from right eye, EGD, colonoscopy Past Anesthesia/Blood Transfusion Reactions: No Reported Reaction Additional Past Anesthesia/Blood Transfusion Reaction / Comment(s): claustrophob ia Date of Last Stent Placement:: 2010 Past Psychological History: Anxiety, Depression, PTSD Smoking Status: Former smoker Past Alcohol Use History: None Reported Past Drug Use History: None Reported - Past Family History Mother Family Medical History: Cancer Additional Family Medical History / Comment(s): from breast cancer at age 53. Father Family Medical History: Coronary Artery Disease (CAD), Myocardial Infarction ([place]) Additional Family Medical History / Comment(s): 4 MIs/CABG. at age 72. Medications and Allergies Home Medications Medication Instructions Recorded Confirmed Type Aspirin EC [Ecotrin Low Dose] 81 mg PO DAILY 06/22/18 06/14/24 History Budesonide/Formoterol Fumarate 2 puff INHALATION RT-BID 06/22/18 06/14/24 History [Symbicort 160-4.5 Mcg Inhaler] Ipratropium/Albuterol Sulfate 1 puff INHALATION RT-QID 06/22/18 06/14/24 History [Combivent Respimat Inhaler] Metoprolol Tartrate [Lopressor] 25 mg PO BID 06/22/18 06/14/24 History Clopidogrel Bisulfate [Plavix] 75 mg PO DAILY 07/01/18 06/14/24 History Albuterol Inhaler [Ventolin Hfa 2 puff INHALATION RT-TID PRN 12/07/19 06/14/24 History Inhaler] Albuterol Nebulized [Ventolin 2.5 mg INHALATION RT-QID 12/07/19 06/14/24 History Nebulized] Loratadine [Claritin] 10 mg PO DAILY 12/07/19 06/14/24 History Simvastatin [Zocor] 40 mg PO HS 12/07/19 06/14/24 History Tiotropium 18 Mcg/Puff [Spiriva] 2 puff INHALATION RT-DAILY 12/07/19 06/14/24 History Cholecalciferol [Vitamin D3 (25 25 mcg PO BID 03/17/24 06/14/24 History Mcg = 1000 Iu)] Ferrous Sulfate [Iron (65 MG 325 mg PO W/LUNCH 04/06/24 06/14/24 History Elemental)] Folic Acid 1 mg PO DAILY 04/06/24 06/14/24 History Vitamin B-12 50mcg 50 mcg PO DAILY 04/06/24 06/14/24 History Furosemide [Lasix] 20 mg PO DAILY 04/16/24 06/14/24 History Azithromycin [Zithromax] 500 mg PO MOWEFR 06/09/24 06/14/24 History Gabapentin [Neurontin] 200 mg PO TID #90 cap 06/11/24 06/14/24 Rx Allergies Allergy/AdvReac Type Severity Reaction Status Date / Time fluticasone AdvReac Nausea Verified 06/14/24 20:36 [From Wixela Inhub] levofloxacin [From Levaquin] AdvReac TENDON PAIN Verified 06/14/24 20:36 salmeterol AdvReac Nausea Verified 06/14/24 20:36 [From Wixela Inhub] Physical Exam Vitals: Vital Signs Temp Pulse Resp BP Pulse Ox 06/15/24 00:42 97.5 F L 86 20 105/77 97 06/14/24 19:41 92 20 107/75 98 06/14/24 18:33 70 06/14/24 18:26 68 06/14/24 18:20 62 06/14/24 18:07 69 18 98/71 06/14/24 18:04 93 22 87/70 99 Intake and Output 06/14/24 06/14/24 06/15/24 14:59 22:59 06:59 Other: Weight 116.573 kg GENERAL EXAM: Patient found laying on his left side, nonlabored breathing, on 6 L/min nasal cannula. HEAD: Normocephalic and atraumatic EYES: Normal reaction of pupils, equal size. NOSE: Clear with pink turbinates. THROAT: No erythema or exudates. NECK: No masses, no JVD. CHEST: No chest wall deformity. LUNGS: Equal air entry with markedly diminished lung sounds bilaterally throughout with end expiratory wheezes. On 6 L/min nasal cannula. No conversational dyspnea or accessory muscle use. CVS: S1 and S2 normal with no audible murmur, regular rhythm. No extra heart sounds ABDOMEN: No hepatosplenomegaly, active bowel sounds, no guarding or rigidity. SPINE: No scoliosis or deformity SKIN: No rashes CENTRAL NERVOUS SYSTEM: No focal deficits, tone is normal in all 4 extremities. EXTREMITIES: Bilateral lower extremity pitting edema, 1-2+ bilaterally. No clubbing or cyanosis. Peripheral pulses are intact. Results - Laboratory Findings CBC and BMP: 06/15/24 06:06 06/15/24 06:06 PT/INR, D-dimer PT 9.8 sec (10.0-12.5) L 06/14/24 19:34 INR 0.9 (<1.2) 06/14/24 19:34 Abnormal lab findings: Abnormal Labs 06/14/24 06/14/24 06/14/24 19:34 19:34 19:34 WBC 14.3 H RBC 3.43 L Hgb 9.8 L Hct 29.6 L RDW 15.7 H Plt Count 452 H D Neutrophils # 9.5 H PT 9.8 L APTT 16.3 L Sodium 135 L Chloride 97 L Carbon Dioxide 32 H Glucose 107 H Total Protein 6.2 L - Diagnostic Findings Chest x-ray: image reviewed Assessment and Plan Assessment: Acute COPD exacerbation Acute on chronic dyspnea, secondary to above, chest x-ray does not show any focal infiltrates or evidence of pneumonia. viral screen negative for influenza, RSV, COVID. Acute on top of chronic hypoxemic respiratory failure, secondary to above Leukocytosis, possibly related to steroid use Sputum culture positive for Stenotrophomonas maltophilia and 05/19/2024 Very severe chronic obstructive pulmonary disease, with an FEV1 29% of predicted, normally maintained on a combination of Symbicort, Spiriva, albuterol nebs [id number] Chronic hypoxemic respiratory failure, secondary to above, normally oxygen dependent on 2-3 L/min nasal cannula mostly at bedtime Normocytic, normochromic anemia, hemoglobin slightly lower than baseline, no obvious acute blood loss Former tobacco dependence Obesity, with a BMI of 40.3 kg/m History of hyperlipidemia History of hypertension History of CAD History of peripheral arterial disease Bilateral lower extremity edema Plan: Chest x-ray does not show any obvious focal infiltrates or evidence pneumonia Viral screen negative for influenza A/B, RSV, COVID Continue supplemental oxygen maintain oxygen saturation of 90% or greater Continue combination of bronchodilators [id number], IV Solu-Medrol, IV Solu-Medrol Restarted on Lasix 20 mg daily We will continue to follow I have personally seen and examined the patient, performed the documentation and the assessment and plan as written. Number of minutes spent on the visit:20 On 06/15/2024, the patient is being seen in joint evaluation along with the nurse practitioner. The patient is seen and evaluated in 31 minutes. The patient is coming in for an acute exacerbation. Viral screen has been negative. Doing well. Slightly more short of breath compared to his baseline as the patient is advised as severe COPD with an FEV1 of 29% of predicted. He is currently on a combination of bronchodilators and steroids. Lasix was restarted. Doing well. No specific complaints. Labs were reviewed. No significant leukocytosis. Lactic acid level is at 2.0. Chest x-ray was also reviewed and is consistent with COPD. No clear airspace disease or pulmonary infiltrates. Antibiotic coverage essentially empiric. Will continue to follow. Time with Patient: Greater than 30
[2024-06-15 06:29] LABS: Basophils % (A) 0 %; Eosinophils % (A) 0 %; HCT 34.7 % (39.0-53.0); HGB 10.9 gm/dL (13.0-17.5); Hypochromasia Slight; Lymphocytes # (A) 0.7 k/uL (1.0-4.8); Lymphocytes % (A) 8 %; MCH 27.9 pg (25.0-35.0); MCHC 31.5 g/dL (31.0-37.0); MCV 88.5 fL (80.0-100.0); Mean Platelet Volume 6.9; Monocytes # (A) 0.2 k/uL (0-1.0); Monocytes % (A) 2 %; Neutrophils # (A) 8.1 k/uL (1.3-7.7); Neutrophils % (A) 90 %; Platelet Count 363 k/uL (150-450); RBC 3.92 m/uL (4.30-5.90); RDW 15.4 % (11.5-15.5); WBC 9.1 k/uL (3.8-10.6)
--- NOTE | 2024-06-15 06:32 | P.HPIM ---
History of Present Illness H&P Date: 06/14/24 Patient is a 78-year-old male with past medical history significant for COPD on 3 L mostly at night, HFpEF, CAD with multiple stents, hypertension, None insulin-dependent diabetes mellitus, history of PE, hyperlipidemia presenting with worsening shortness of breath. He was discharged on 06/11/2024 after being admitted for acute COPD exacerbation and bacterial pneumonia. Patient states that when he woke up this morning he was having dyspnea with exertion. He believes that his breathing treatments are not as effective at home. He reports a nonproductive cough. He uses 3 L at home and is having to use it more frequently rather than just at night. He reports bilateral lower extremity edema. He denies fever/chills, nausea/vomiting, chest pain, dyspnea at rest, abdominal pain, hematuria, hematochezia/melena. Initial vitals: BP 107/75, AR 92 bpm, RR 20, 98% on 3 L nasal cannula Initial labs: WBC 14.3, hemoglobin 9.8, hematocrit 29.6, platelets 452, sodium 135, potassium 4.2, chloride 97, CO2 32, BUN 14, creatinine 0.8; Cepheid 4 Plex negative Initial chest x-ray: No acute cardiopulmonary disease process, COPD changes ED documentation reviewed. Given DuoNeb x 1, Solu-Medrol 125 mg x 1, 0.9% saline 500 mL x 1 Review of Systems Pertinent positives and negatives as discussed in HPI, a complete review of systems was performed and all other systems are negative. Past Medical History Past Medical History: Coronary Artery Disease (CAD), COPD, GERD/Reflux, Hyperlipidemia, Hypertension, Myocardial Infarction ([place]), Pulmonary Embolus (PE), Renal Disease Additional Past Medical History / Comment(s): home O2 (3L NC HS), bilateral PEs in 2003, history ETOH abuse - Last Myocardial Infarction Date:: 2010 History of Any Multi-Drug Resistant Organisms: None Reported Past Surgical History: Heart Catheterization With Stent Additional Past Surgical History / Comment(s): back injections for pain, piece of metal removed from right eye, EGD, colonoscopy Past Anesthesia/Blood Transfusion Reactions: No Reported Reaction Additional Past Anesthesia/Blood Transfusion Reaction / Comment(s): claustrophobia Date of Last Stent Placement:: 2010 Past Psychological History: Anxiety, Depression, PTSD Smoking Status: Former smoker Past Alcohol Use History: None Reported Past Drug Use History: None Reported - Past Family History Mother Family Medical History: Cancer Additional Family Medical History / Comment(s): from breast cancer at age 53. Father Family Medical History: Coronary Artery Disease (CAD), Myocardial Infarction ([place]) Additional Family Medical History / Comment(s): 4 MIs/CABG. at age 72. Medications and Allergies Home Medications Medication Instructions Recorded Confirmed Type Aspirin EC [Ecotrin Low Dose] 81 mg PO DAILY 06/22/18 06/14/24 History Budesonide/Formoterol Fumarate 2 puff INHALATION RT-BID 06/22/18 06/14/24 History [Symbicort 160-4.5 Mcg Inhaler] Ipratropium/Albuterol Sulfate 1 puff INHALATION RT-QID 06/22/18 06/14/24 History [Combivent Respimat Inhaler] Metoprolol Tartrate [Lopressor] 25 mg PO BID 06/22/18 06/14/24 History Clopidogrel Bisulfate [Plavix] 75 mg PO DAILY 07/01/18 06/14/24 History Albuterol Inhaler [Ventolin Hfa 2 puff INHALATION RT-TID PRN 12/07/19 06/14/24 History Inhaler] Albuterol Nebulized [Ventolin 2.5 mg INHALATION RT-QID 12/07/19 06/14/24 History Nebulized] Loratadine [Claritin] 10 mg PO DAILY 12/07/19 06/14/24 History Simvastatin [Zocor] 40 mg PO HS 12/07/19 06/14/24 History Tiotropium 18 Mcg/Puff [Spiriva] 2 puff INHALATION RT-DAILY 12/07/19 06/14/24 History Cholecalciferol [Vitamin D3 (25 25 mcg PO BID 03/17/24 06/14/24 History Mcg = 1000 Iu)] Ferrous Sulfate [Iron (65 MG 325 mg PO W/LUNCH 04/06/24 06/14/24 History Elemental)] Folic Acid 1 mg PO DAILY 04/06/24 06/14/24 History Vitamin B-12 50mcg 50 mcg PO DAILY 04/06/24 06/14/24 History Furosemide [Lasix] 20 mg PO DAILY 04/16/24 06/14/24 History Azithromycin [Zithromax] 500 mg PO MOWEFR 06/09/24 06/14/24 History Gabapentin [Neurontin] 200 mg PO TID #90 cap 06/11/24 06/14/24 Rx Allergies Allergy/AdvReac Type Severity Reaction Status Date / Time fluticasone AdvReac Nausea Verified 06/14/24 20:36 [From [facility]] levofloxacin [From Levaquin] AdvReac TENDON PAIN Verified 06/14/24 20:36 salmeterol AdvReac Nausea Verified 06/14/24 20:36 [From [facility]] Physical Exam Vitals: Vital Signs Pulse Resp BP Pulse Ox 06/14/24 19:41 92 20 107/75 98 06/14/24 18:33 70 06/14/24 18:26 68 06/14/24 18:20 62 06/14/24 18:07 69 18 98/71 06/14/24 18:04 93 22 87/70 99 Intake and Output 06/14/24 06/14/24 06/14/24 06:59 14:59 22:59 Other: Weight 116.573 kg Vital signs reviewed General: Nontoxic, no distress, appears stated age, well-appearing Derm: Warm, dry, intact, no cyanosis Head: Atraumatic, normocephalic, symmetric Eyes: EOMI, anicteric sclera, PERRL Ears: Normal appearing, no external lesions, hearing intact Nose: Normal appearing, no external lesions Mouth: No lip lesion, mucus membranes moist, no tonsilar hypertrophy or exudate Neck: Supple, without lesions, trachea midline Cardiovascular: S1-S2 regular, no murmur, 2+ bilateral lower extremities pitting edema Lungs: Mild diffuse wheezes, no rhonchi, no rales, no accessory muscle use Abdominal: Soft, non-tender to palpation, bowel sounds present, obese Extremities: Muscle strength 5/5 in all extremities, radial pulses 2+ bilateral Neuro: Alert, oriented x 4, gross neurological examination did not reveal any focal deficits. Cranial nerves II to XII grossly intact. Psych: Appropriate affect and mood Results CBC & Chem 7: 06/14/24 19:34 06/14/24 19:34 Labs: Abnormal Lab Results - Last 24 Hours (Table) 06/14/24 06/14/24 06/14/24 Range/Units 19:34 19:34 19:34 WBC 14.3 H (3.8-10.6) k/uL RBC 3.43 L (4.30-5.90) m/uL Hgb 9.8 L (13.0-17.5) gm/dL Hct 29.6 L (39.0-53.0) % RDW 15.7 H (11.5-15.5) % Plt Count 452 H D (150-450) k/uL Neutrophils # 9.5 H (1.3-7.7) k/uL PT 9.8 L (10.0-12.5) sec APTT 16.3 L (22.0-30.0) sec Sodium 135 L (137-145) mmol/L Chloride 97 L (98-107) mmol/L Carbon Dioxide 32 H (22-30) mmol/L Glucose 107 H (74-99) mg/dL Total Protein 6.2 L (6.3-8.2) g/dL Thrombosis Risk Factor Assmnt - Choose All That Apply Each Factor Represents 1 point: Abnormal pulmonary function (COPD), Obesity (BMI >25), Swollen legs (current) Each Risk Factor Represents 3 Points: Age 75 years or older Thrombosis Risk Factor Assessment Total Risk Factor Score: 6 Thrombosis Risk Factor Assessment Level: High Risk Assessment and Plan Assessment: Patient is a 78-year-old male with past medical history significant for COPD on 3 L mostly at night, HFpEF, CAD with multiple stents, hypertension, none insulin-dependent diabetes mellitus, history of PE, hyperlipidemia admitted for COPD exacerbation. Plan: Active #. Acute COPD exacerbation #. Acute on chronic hypoxic respiratory failure Chest x-ray: COPD changes, no acute cardiopulmonary disease process 3 L oxygen at home, has needed 4 L in the ED Continue DuoNeb every 4 hours and as needed Continue Symbicort twice daily Continue tiotropium daily Continue Solu-Medrol 40 mg IV every 12 hours pulmonary consult #. Eag-qwucjtf-pzvifamtx diabetes mellitus, uncontrolled #. Hyperglycemia #. Neuropathy A1c was 7.1 Accu-Cheks ACHS Insulin sliding scale Monitor for hypoglycemia Continue gabapentin 200 mg 3 times daily #. Normocytic anemia No signs of acute GI bleed Monitor CBC Chronic #. HFpEF, not in acute exacerbation #. Hyperlipidemia #. CAD #. Hypertension #. History of PE not on anticoagulation Continue home medications DVT prophylaxis: Heparin 5000 units subcutaneous every 12 hours GI prophylaxis: Protonix 40 mg PO daily The patient is admitted with an anticipated less than 2 midnight stay for evaluation of acute COPD exacerbation. CODE STATUS: Full code Anticipated discharge place: Pending clinical course I have seen and evaluated the patient today. I Discussed the case with the resident and agree with the resident's findings I edited the assessment and plan as necessary as documented in the resident's note.
[2024-06-15 06:44] LABS: ALT 19 U/L (4-49); AST 16 U/L (17-59); African American GFR (CKD) >90 (>60 ml/min/1.73 sqM); Albumin 3.3 g/dL (3.5-5.0); Alkaline Phosphatase 62 U/L (38-126); Anion Gap 6 mmol/L; Blood Urea Nitrogen 15 mg/dL (9-20); Calcium 8.7 mg/dL (8.4-10.2); Carbon Dioxide 33 mmol/L (22-30); Chloride 94 mmol/L (98-107); Glucose 181 mg/dL (74-99); Non-African American GFR(CKD) >90 (>60 ml/min/1.73 sqM); Potassium 4.9 mmol/L (3.5-5.1); Sodium 133 mmol/L (137-145); Total Bilirubin 0.5 mg/dL (0.2-1.3); Total Protein 5.8 g/dL (6.3-8.2)
[2024-06-15] MEDS ORDERED: ALBUTEROL NEBULIZED 2.5 MG/3 ML INHALATION SCH (08:00)
[2024-06-15] MEDS ORDERED: NON FORMULARY DRUG (Ipratropium/Albuterol Sulfate [Combivent Respimat Inhaler] 1 INHALER M INHALATION SCH (08:00)
[2024-06-15] MEDS: SYMBICORT 160-4.5 MCG INHALER INHALATION SCH (08:06)
[2024-06-15] MEDS: IPRATROPIUM-ALBUTEROL 3 ML NEB INHALATION SCH (08:07)
[2024-06-15] MEDS: TIOTROPIUM 2.5 MCG INHALER INHALATION SCH (08:07)
[2024-06-15] MEDS: ASPIRIN 81 MG PO SCH (08:14)
[2024-06-15] MEDS: PANTOPRAZOLE 40 MG TABLET PO SCH (08:14)
[2024-06-15] MEDS: AZITHROMYCIN 500 MG TAB PO SCH (08:15)
[2024-06-15] MEDS: FUROSEMIDE 20 MG TAB PO SCH (08:15)
[2024-06-15] MEDS: CLOPIDOGREL 75 MG TAB PO SCH (08:15)
[2024-06-15] MEDS: METOPROLOL TARTRATE 25 MG TAB PO SCH (08:16)
[2024-06-15] MEDS: LORATADINE 10 MG TAB PO SCH (08:16)
[2024-06-15] MEDS: HEPARIN SODIUM,PORCINE 5,000 UNIT/ML 1 ML VIAL SQ SCH (08:16)
--- NOTE | 2024-06-15 18:17 | P.PN ---
Subjective Progress Note Date: 06/15/24 Patient was seen and examined. Breathing improving 50%. CBC and CMP significant for RBC 3.92, Hg 10.9, Hct 34.7, Na 133, Cl 94, bicarb 33, glu 181, AST 16, alb 3.3. Vital signs reviewed General: Nontoxic, no distress, appears stated age, well-appearing Derm: Warm, dry, intact, no cyanosis Head: Atraumatic, normocephalic, symmetric Eyes: EOMI, anicteric sclera Neck: Supple, without lesions, trachea midline Cardiovascular: S1-S2 regular, no murmur, 2+ bilateral lower extremities pitting edema Lungs: Mild diffuse wheezes, no rhonchi, no rales, no accessory muscle use Extremities: Muscle strength 5/5 in all extremities, radial pulses 2+ bilateral Neuro: Alert, oriented x 4 Psych: Appropriate affect and mood Active #. Acute COPD exacerbation #. Acute on chronic hypoxic respiratory failure Chest x-ray: COPD changes, no acute cardiopulmonary disease process 3 L oxygen at home, has needed 4 L in the ED Continue DuoNeb every 4 hours scheduled and as needed Continue Symbicort twice daily Continue tiotropium daily Continue Solu-Medrol 40 mg IV every 12 hours pulmonary consult #. Ezu-khhgtmj-gyjhopcia diabetes mellitus, uncontrolled #. Hyperglycemia #. Neuropathy A1c was 7.1 Accu-Cheks [facility] Insulin sliding scale Monitor for hypoglycemia Continue gabapentin 200 mg 3 times daily #. Normocytic anemia No signs of acute GI bleed Monitor CBC Chronic #. HFpEF, not in acute exacerbation #. Hyperlipidemia #. CAD #. Hypertension #. History of PE not on anticoagulation Continue home medications DVT prophylaxis: Heparin 5000 units subcutaneous every 12 hours GI prophylaxis: Protonix 40 mg PO daily The patient is admitted with an anticipated less than 2 midnight stay for evaluation of acute COPD exacerbation. CODE STATUS: Full code Anticipated discharge place: Pending clinical course Objective - Vital Signs Vital signs: Vital Signs Temp 97.8 F 06/15/24 05:24 Pulse 82 06/15/24 16:53 Resp 22 06/15/24 16:53 BP 146/91 06/15/24 16:53 Pulse Ox 95 06/15/24 16:53 FiO2 Intake & Output 06/14/24 06/15/24 06/15/24 18:59 06:59 18:59 Weight 116.573 kg - Labs CBC & Chem 7: 06/15/24 06:06 06/15/24 06:06 Labs: Abnormal Lab Results - Last 24 Hours (Table) 06/14/24 06/14/24 06/14/24 Range/Units 19:34 19:34 19:34 WBC 14.3 H (3.8-10.6) k/uL RBC 3.43 L (4.30-5.90) m/uL Hgb 9.8 L (13.0-17.5) gm/dL Hct 29.6 L (39.0-53.0) % RDW 15.7 H (11.5-15.5) % Plt Count 452 H D (150-450) k/uL Neutrophils # 9.5 H (1.3-7.7) k/uL Lymphocytes # (1.0-4.8) k/uL PT 9.8 L (10.0-12.5) sec APTT 16.3 L (22.0-30.0) sec Sodium 135 L (137-145) mmol/L Chloride 97 L (98-107) mmol/L Carbon Dioxide 32 H (22-30) mmol/L Glucose 107 H (74-99) mg/dL AST (17-59) U/L Total Protein 6.2 L (6.3-8.2) g/dL Albumin (3.5-5.0) g/dL 06/15/24 06/15/24 Range/Units 06:06 06:06 WBC (3.8-10.6) k/uL RBC 3.92 L (4.30-5.90) m/uL Hgb 10.9 L (13.0-17.5) gm/dL Hct 34.7 L (39.0-53.0) % RDW (11.5-15.5) % Plt Count (150-450) k/uL Neutrophils # 8.1 H (1.3-7.7) k/uL Lymphocytes # 0.7 L (1.0-4.8) k/uL PT (10.0-12.5) sec APTT (22.0-30.0) sec Sodium 133 L (137-145) mmol/L Chloride 94 L (98-107) mmol/L Carbon Dioxide 33 H (22-30) mmol/L Glucose 181 H (74-99) mg/dL AST 16 L (17-59) U/L Total Protein 5.8 L (6.3-8.2) g/dL Albumin 3.3 L (3.5-5.0) g/dL
[2024-06-15] MEDS: ATORVASTATIN 20 MG TAB PO SCH (21:15)
[2024-06-15] MEDS: MONTELUKAST 10 MG TAB PO SCH (21:15)
[2024-06-16] MEDS: methylPREDNISolone SOD SUCCI 40 MG/ML 1 ML VIAL IV SCH (00:21)
[2024-06-16 08:35] VITALS: BP 128/73; RESP 18; TEMP 97.5
[2024-06-16 08:41] VITALS: PULSE 88
--- NOTE | 2024-06-16 17:25 | P.DS ---
Providers Date of admission: 06/14/24 21:12 Expected date of discharge: 06/16/24 Attending physician: Kristopher Dale MD Consults: 06/14/24 21:12 Consult Physician Routine Consulting Provider: Mindy Vargas Consult Reason/Comments: copd Do you want consulting provider notified?: Yes Primary care physician: [facility] Course: Patient is a 78-year-old male with past medical history significant for COPD on 3 L mostly at night, HFpEF, CAD with multiple stents, hypertension, None insulin-dependent diabetes mellitus, history of PE, hyperlipidemia presenting wi th worsening shortness of breath. He was discharged on 06/11/2024 after being admitted for acute COPD exacerbation and bacterial pneumonia. Patient states that when he woke up this morning he was having dyspnea with exertion. He believes that his breathing treatments are not as effective at home. He reports a nonproductive cough. He uses 3 L at home and is having to use it more frequently rather than just at night. He reports bilateral lower extremity edema. He denies fever/chills, nausea/vomiting, chest pain, dyspnea at rest, abdominal pain, hematuria, hematochezia/melena. Initial vitals: BP 107/75, NE 92 bpm, RR 20, 98% on 3 L nasal cannula Initial labs: WBC 14.3, hemoglobin 9.8, hematocrit 29.6, platelets 452, sodium 135, potassium 4.2, chloride 97, CO2 32, BUN 14, creatinine 0.8; Cepheid 4 Plex negative Initial chest x-ray: No acute cardiopulmonary disease process, COPD changes Patient was started on SoluMedrol and bronchodilators and admitted for further workup and management. Pulmonary consulted. His symptoms improved. 06/16 Patient was seen and examined. No evens overnight. Feeling well. Wants to go home. Breathing at baseline. Vital signs reviewed General: Nontoxic, no distress, appears stated age, well-appearing Derm: Warm, dry, intact, no cyanosis Head: Atraumatic, normocephalic, symmetric Eyes: EOMI, anicteric sclera Neck: Supple, without lesions, trachea midline Cardiovascular: S1-S2 regular, no murmur, 2+ bilateral lower extremities pitting edema Lungs: End expiratory wheezes, no rhonchi, no rales, no accessory muscle use Extremities: Muscle strength 5/5 in all extremities, radial pulses 2+ bilateral Neuro: Alert, oriented x 4 Psych: Appropriate affect and mood Discharge Diagnosis: #. Acute COPD exacerbation #. Acute on chronic hypoxic respiratory failure #. Fny-xnqbwtr-ekjzbxzts diabetes mellitus, uncontrolled #. Hyperglycemia #. Neuropathy #. Normocytic anemia #. HFpEF, not in acute exacerbation #. Hyperlipidemia #. CAD #. Hypertension #. History of PE not on anticoagulation This complex discharge took 35 minutes to complete. Patient Condition at Discharge: Stable Plan - Discharge Summary New Discharge Prescriptions: New predniSONE See Taper PO DIRECTED #30 tab Pantoprazole [Protonix] 40 mg PO AC-BRKFST #30 tab Montelukast [Singulair] 10 mg PO HS #30 tab Continue Aspirin EC [Ecotrin Low Dose] 81 mg PO DAILY Budesonide/Formoterol Fumarate [Symbicort 160-4.5 Mcg Inhaler] 2 puff IN HALATION RT-BID Ipratropium/Albuterol Sulfate [Combivent Respimat Inhaler] 1 puff INHALATION RT-QID Metoprolol Tartrate [Lopressor] 25 mg PO BID Clopidogrel Bisulfate [Plavix] 75 mg PO DAILY Tiotropium 18 Mcg/Puff [Spiriva] 2 puff INHALATION RT-DAILY Simvastatin [Zocor] 40 mg PO HS Albuterol Nebulized [Ventolin Nebulized] 2.5 mg INHALATION RT-QID Loratadine [Claritin] 10 mg PO DAILY Albuterol Inhaler [Ventolin Hfa Inhaler] 2 puff INHALATION RT-TID PRN PRN Reason: Shortness Of Breath Cholecalciferol [Vitamin D3 (25 Mcg = 1000 Iu)] 25 mcg PO BID Furosemide [Lasix] 20 mg PO DAILY Azithromycin [Zithromax] 500 mg PO MOWEFR Gabapentin [Neurontin] 200 mg PO TID #90 cap Ferrous Sulfate [Iron (65 MG Elemental)] 325 mg PO W/LUNCH Folic Acid 1 mg PO DAILY Vitamin B-12 50mcg 50 mcg PO DAILY Discharge Medication List Aspirin EC [Ecotrin Low Dose] 81 mg PO DAILY 06/22/18 [History] Budesonide/Formoterol Fumarate [Symbicort 160-4.5 Mcg Inhaler] 2 puff INHALATION RT-BID 06/22/18 [History] Ipratropium/Albuterol Sulfate [Combivent Respimat Inhaler] 1 puff INHALATION RT- QID 06/22/18 [History] Metoprolol Tartrate [Lopressor] 25 mg PO BID 06/22/18 [History] Clopidogrel Bisulfate [Plavix] 75 mg PO DAILY 07/01/18 [History] Albuterol Inhaler [Ventolin Hfa Inhaler] 2 puff INHALATION RT-TID PRN 12/07/19 [History] Albuterol Nebulized [Ventolin Nebulized] 2.5 mg INHALATION RT-QID 12/07/19 [History] Loratadine [Claritin] 10 mg PO DAILY 12/07/19 [History] Simvastatin [Zocor] 40 mg PO HS 12/07/19 [History] Tiotropium 18 Mcg/Puff [Spiriva] 2 puff INHALATION RT-DAILY 12/07/19 [History] Cholecalciferol [Vitamin D3 (25 Mcg = 1000 Iu)] 25 mcg PO BID 03/17/24 [History] Ferrous Sulfate [Iron (65 MG Elemental)] 325 mg PO W/LUNCH 04/06/24 [History] Folic Acid 1 mg PO DAILY 04/06/24 [History] Vitamin B-12 50mcg 50 mcg PO DAILY 04/06/24 [History] Furosemide [Lasix] 20 mg PO DAILY 04/16/24 [History] Azithromycin [Zithromax] 500 mg PO MOWEFR 06/09/24 [History] Gabapentin [Neurontin] 200 mg PO TID #90 cap 06/11/24 [Rx] Montelukast [Singulair] 10 mg PO HS #30 tab 06/16/24 [Rx] Pantoprazole [Protonix] 40 mg PO AC-BRKFST #30 tab 06/16/24 [Rx] predniSONE See Taper PO DIRECTED #30 tab 06/16/24 [Rx] Follow up Appointment(s)/Referral(s): Enrrique Reese DO [Primary Care Provider] - 1-2 days Mindy Vargas MD [STAFF PHYSICIAN] - 1 Week Patient Instructions/Handouts: COPD (Chronic Obstructive Pulmonary Disease) (DC) Discharge Disposition: HOME SELF-CARE
--- NOTE | 2024-06-16 20:02 | P.PN ---
Subjective Progress Note Date: 06/16/24 On 06/16/2024 the patient is being seen for a follow-up. Feeling better. No significant complaints. No significant chest pain. Recovering from acute CF exacerbation. Sputum was negative for any microbial growth. White cell count is at 9.1, hemoglobin 10.9 from yesterday. Remains on oxygen airfit 4 L with a pulse ox of 99%. No new complaints. Objective - Vital Signs Vital signs: Vital Signs Temp 97.5 F L 06/16/24 07:30 Pulse 88 06/16/24 08:38 Resp 18 06/16/24 07:30 BP 128/73 06/16/24 07:30 Pulse Ox 99 06/16/24 07:30 FiO2 Intake & Output 06/16/24 06/16/24 06/17/24 06:59 18:59 06:59 Intake Total 360 Balance 360 Intake: Oral 360 Other: Voiding Method Toilet # Voids 2 - Exam GENERAL EXAM: Patient found laying on his left side, nonlabored breathing, on 4 L/min nasal cannula. HEAD: Normocephalic and atraumatic EYES: Normal reaction of pupils, equal size. NOSE: Clear with pink turbinates. THROAT: No erythema or exudates. NECK: No masses, no JVD. CHEST: No chest wall deformity. LUNGS: Equal air entry with markedly diminished lung sounds bilaterally throughout with end expiratory wheezes. On 6 L/min nasal cannula. No conversational dyspnea or accessory muscle use. CVS: S1 and S2 normal with no audible murmur, regular rhythm. No extra heart sounds ABDOMEN: No hepatosplenomegaly, active bowel sounds, no guarding or rigidity. SPINE: No scoliosis or deformity SKIN: No rashes CENTRAL NERVOUS SYSTEM: No focal deficits, tone is normal in all 4 extremities. EXTREMITIES: Bilateral lower extremity pitting edema, 1-2+ bilaterally. No clubbing or cyanosis. Peripheral pulses are intact. - Labs CBC & Chem 7: 06/15/24 06:06 06/15/24 06:06 Assessment and Plan Assessment: Acute COPD exacerbation, improving Acute on chronic dyspnea, secondary to above, chest x-ray does not show any focal infiltrates or evidence of pneumonia. viral screen negative for influenza, RSV, COVID. Acute on top of chronic hypoxemic respiratory failure, secondary to above Leukocytosis, possibly related to steroid use Sputum culture positive for Stenotrophomonas maltophilia and 05/19/2024 Very severe chronic obstructive pulmonary disease, with an FEV1 29% of predicted, normally maintained on a combination of Symbicort, Spiriva, albuterol nebs [id number] Chronic hypoxemic respiratory failure, secondary to above, normally oxygen dep endent on 2-3 L/min nasal cannula mostly at bedtime Normocytic, normochromic anemia, hemoglobin slightly lower than baseline, no obvious acute blood loss Former tobacco dependence Obesity, with a BMI of 40.3 kg/m History of hyperlipidemia History of hypertension History of CAD History of peripheral arterial disease Bilateral lower extremity edema Plan: Clinically improved Chest x-ray does not show any obvious focal infiltrates or evidence pneumonia Viral screen negative for influenza A/B, RSV, COVID Will discharge the patient home on a prednisone burst taper and a course of Zithromax. Sputum culture was negative for any microbial growth. No specific complaints. Labs were reviewed. No significant leukocytosis. Lactic acid level is at 2.0. Chest x-ray was also reviewed and is consistent with COPD. No clear airspace disease or pulmonary infiltrates.
== END 2024-06-16 11:50 | disposition home or self-care (01) | DRG 190 ==
LOC: EC 18:02 → 6NMEDSUR 21:12 → OBSVTOIN 21:12 → 6NMEDSUR 06-15 11:58
PROVIDERS: ADMIT Internal Medicine; ATTEND Internal Medicine
DX: J44.1 Chronic obstructive pulmonary disease with (acute) exacerbation (principal); J96.21 Acute and chronic respiratory failure with hypoxia; I50.30 Unspecified diastolic (congestive) heart failure; I11.0 Hypertensive heart disease with heart failure; D72.829 Elevated white blood cell count, unspecified; D64.9 Anemia, unspecified; E11.40 Type 2 diabetes mellitus with diabetic neuropathy, unspecified; E11.51 Type 2 diabetes mellitus with diabetic peripheral angiopathy without gangrene; E66.9 Obesity, unspecified; F32.A Depression, unspecified; F10.11 Alcohol abuse, in remission; Z68.41 Body mass index [BMI] 40.0-44.9, adult; E11.65 Type 2 diabetes mellitus with hyperglycemia; G89.29 Other chronic pain; Z99.81 Dependence on supplemental oxygen; T38.0X5A Adverse effect of glucocorticoids and synthetic analogues, initial encounter; I25.10 Atherosclerotic heart disease of native coronary artery without angina pectoris; F43.10 Post-traumatic stress disorder, unspecified; K21.9 Gastro-esophageal reflux disease without esophagitis; E78.5 Hyperlipidemia, unspecified; I25.2 Old myocardial infarction; Z79.899 Other long term (current) drug therapy; Z95.5 Presence of coronary angioplasty implant and graft; Z87.891 Personal history of nicotine dependence; Z86.711 Personal history of pulmonary embolism; Z79.84 Long term (current) use of oral hypoglycemic drugs; Z79.82 Long term (current) use of aspirin; Z79.51 Long term (current) use of inhaled steroids; Z79.02 Long term (current) use of antithrombotics/antiplatelets; Z88.8 Allergy status to other drugs, medicaments and biological substances; Z88.1 Allergy status to other antibiotic agents; Z87.01 Personal history of pneumonia (recurrent)
CPT/HCPCS: 36415; 71046; 80053; 83605; 83735; 83880; 85025; 85610; 85730; 87636; 93005; 94640; 96361; 96365; 96366; 96372; 96375; 96376; 99285

== ENCOUNTER 2024-06-21 19:38 | Emergency (ER) | payer OTHER, MEDICARE ==
[2024-06-21 19:56] VITALS: TEMP 98.1
[2024-06-21 20:26] LABS: Basophils % (A) 0 %; Eosinophils % (A) 0 %; HGB 11.9 gm/dL (13.0-17.5); Hypochromasia Slight; Lymphocytes # (A) 0.9 k/uL (1.0-4.8); Lymphocytes % (A) 8 %; MCH 27.9 pg (25.0-35.0); MCHC 31.3 g/dL (31.0-37.0); MCV 88.9 fL (80.0-100.0); Monocytes # (A) 0.6 k/uL (0-1.0); Monocytes % (A) 5 %; Neutrophils # (A) 10.4 k/uL (1.3-7.7); Neutrophils % (A) 86 %; Platelet Count 318 k/uL (150-450); RBC 4.27 m/uL (4.30-5.90); RDW 15.8 % (11.5-15.5); WBC 12.1 k/uL (3.8-10.6)
--- NOTE | 2024-06-21 20:37 | ED ---
General Adult HPI - General Chief complaint: Shortness of Breath Stated complaint: SOB Time Seen by Provider: 06/21/24 19:56 Source: patient, EMS Mode of arrival: EMS - History of Present Illness Initial comments: 78-year-old male with history of CAD, COPD, hypertension, hyperlipidemia, NH, CKD presenting with multiple complaints. Patient reports that he has had numbness and tingling in the bilateral feet for a few days now. Started when he woke up 1 morning. States that he was at the gas station today and fell over because of the numbness in his feet. He denies any head injury loss of consciousness or blood thinners. Patient is also complaining of left shoulder pain. This started yesterday and he thinks that he slept on it wrong last night making it worse. It is worse with movement. He states that he holds it in a specific position that there is less pain. He is also complaining of shortness of breath. States that he has shortness of breath at baseline due to his COPD and cannot exactly pinpoint when this seems to be getting worse. He admits to cough which does not seem to be worse than usual. He normally wears oxygen at night but has been wearing it throughout the day. - Related Data Home Medications Medication Instructions Recorded Confirmed Aspirin EC [Ecotrin Low Dose] 81 mg PO DAILY 06/22/18 06/22/24 Budesonide/Formoterol Fumarate 2 puff INHALATION RT-BID 06/22/18 06/22/24 [Symbicort 160-4.5 Mcg Inhaler] Ipratropium/Albuterol Sulfate 1 puff INHALATION RT-QID 06/22/18 06/22/24 [Combivent Respimat Inhaler] Metoprolol Tartrate [Lopressor] 25 mg PO BID 06/22/18 06/22/24 Clopidogrel Bisulfate [Plavix] 75 mg PO DAILY 07/01/18 06/22/24 Albuterol Inhaler [Ventolin Hfa 2 puff INHALATION RT-TID PRN 12/07/19 06/22/24 Inhaler] Albuterol Nebulized [Ventolin 2.5 mg INHALATION RT-QID 12/07/19 06/22/24 Nebulized] Loratadine [Claritin] 10 mg PO DAILY 12/07/19 06/22/24 Simvastatin [Zocor] 40 mg PO HS 12/07/19 06/22/24 Tiotropium 18 Mcg/Puff [Spiriva] 2 puff INHALATION RT-DAILY 12/07/19 06/22/24 Cholecalciferol [Vitamin D3 (25 25 mcg PO BID 03/17/24 06/22/24 Mcg = 1000 Iu)] Ferrous Sulfate [Iron (65 MG 325 mg PO W/LUNCH 04/06/24 06/22/24 Elemental)] Folic Acid 1 mg PO DAILY 04/06/24 06/22/24 Vitamin B-12 50mcg 50 mcg PO DAILY 04/06/24 06/22/24 Furosemide [Lasix] 20 mg PO DAILY 04/16/24 06/22/24 Azithromycin [Zithromax] 500 mg PO MOWEFR 06/09/24 06/22/24 Previous Rx's Medication Instructions Recorded Gabapentin [Neurontin] 200 mg PO TID #90 cap 06/11/24 Montelukast [Singulair] 10 mg PO HS #30 tab 06/16/24 Pantoprazole [Protonix] 40 mg PO AC-BRKFST #30 tab 06/16/24 Spironolactone [Aldactone] 25 mg PO DAILY #90 tab 06/24/24 predniSONE 50 mg PO DAILY #4 tab 06/24/24 Allergies Allergy/AdvReac Type Severity Reaction Status Date / Time fluticasone AdvReac Nausea Verified 06/22/24 17:52 [From [facility]] levofloxacin [From Levaquin] AdvReac TENDON PAIN Verified 06/22/24 17:52 salmeterol AdvReac Nausea Verified 06/22/24 17:52 [From [facility]] Review of Systems ROS Statement: Those systems with pertinent positive or pertinent negative responses have been documented in the HPI. ROS Other: All systems not noted in ROS Statement are negative. Past Medical History Past Medical History: Coronary Artery Disease (CAD), COPD, GERD/Reflux, Hyperlipidemia, Hypertension, Myocardial Infarction (NH), Pulmonary Embolus (PE), Renal Disease Additional Past Medical History / Comment(s): home O2 (3L [place] HS), bilateral PEs in 2003, history ETOH abuse - pt states he has never had withdrawal symptoms, chronic low back pain/sciatica/spurs/disc disease - much improved after back injections, past urinary retention, diverticulitis/benign colon polyps removed, nephrolithiasis - passed stones on his own, shingelles 16 years ago - R shoulder. Last Myocardial Infarction Date:: 2010 History of Any Multi-Drug Resistant Organisms: None Reported Past Surgical History: Heart Catheterization With Stent Additional Past Surgical History / Comment(s): back injections for pain, piece of metal removed from right eye, EGD, colonoscopy Past Anesthesia/Blood Transfusion Reactions: No Reported Reaction Additional Past Anesthesia/Blood Transfusion Reaction / Comment(s): claustrophobia Date of Last Stent Placement:: 2010 Past Psychological History: Anxiety, Depression, PTSD Smoking Status: Former smoker Past Alcohol Use History: None Reported Past Drug Use History: None Reported - Past Family History Mother Family Medical History: Cancer Additional Family Medical History / Comment(s): from breast cancer at age 53. Father Family Medical History: Coronary Artery Disease (CAD), Myocardial Infarction (NH) Additional Family Medical History / Comment(s): 4 MIs/CABG. at age 72. General Exam General appearance: alert, in no apparent distress Head exam: Present: atraumatic, normocephalic, normal inspection Eye exam: Present: normal appearance, EOMI Neck exam: Present: normal inspection. Absent: meningismus Respiratory exam: Present: accessory muscle use. Absent: respiratory distress, wheezes, rales, rhonchi, stridor Cardiovascular Exam: Present: regular rate, normal rhythm, normal heart sounds. Absent: systolic murmur, diastolic murmur, rubs, gallop, clicks Extremities exam: Present: pedal edema Neurological exam: Present: alert, oriented X3 Expanded Neurological exam: Present: other (Patient states that he can feel when I am touching his lower extremities, but states "it does not feel right") Patient oriented to: Present: person, place, time Speech: Present: fluid speech Cranial nerves: EOM's Intact: Normal Motor strength exam: RUE: 5, LUE: 5, RLE: 5, LLE: 5 Eye Response: (4) open spontaneously Motor Response: (6) obeys commands Verbal Response: (5) oriented Psychiatric exam: Present: normal affect, normal mood Skin exam: Present: warm, dry Course Vital Signs 06/21/24 06/21/24 06/21/24 19:47 22:05 22:26 Temperature 98.1 F Pulse Rate 63 89 90 Respiratory 20 18 Rate Blood Pressure 104/44 119/69 O2 Sat by Pulse 95 97 Oximetry 06/21/24 06/22/24 22:31 00:30 Temperature Pulse Rate 87 84 Respiratory 17 Rate Blood Pressure 122/76 O2 Sat by Pulse 97 Oximetry Medical Decision Making - Medical Decision Making EKG shows sinus tachycardia ventricular rate 103. ND interval 162 QRS 86. QT 331. QTc 390. Was pt. sent in by a medical professional or institution (, PA, FISCAL TECHNICIAN, urgent care, hospital, or longterm...) When possible be specific @ -No Did you speak to anyone other than the patient for history (EMS, parent, family, police, friend...)? What history was obtained from this source @ -No Did you review nursing and triage notes (agree or disagree)? Why? @ -I reviewed and agree with nursing and triage notes Were old charts reviewed (outside hosp., previous admission, EMS record, old EKG, old radiological studies, urgent care reports/EKG's, longterm records)? Report findings @ -No old charts were reviewed Differential Diagnosis (chest pain, altered mental status, abdominal pain women, abdominal pain men, vaginal bleeding, weakness, fever, dyspnea, syncope, headache, dizziness, GI bleed, back pain, seizure, CVA, palpatations, mental health, musculoskeletal)? @ -MDM Differential Dyspnea: Coronary syndrome, arrhythmia, tamponade, asthma, COPD, pulmonary embolism, pneumonia, pneumothorax, pulmonary effusion, anaphylaxis, diabetic ketoacidosis, flailed chest, pulmonary contusion, diaphragmatic rupture, anemia, neuromuscular this is not meant to be an all-inclusive list. EKG interpreted by me (3pts min.). @ -As above X-rays interpreted by me (1pt min.). @ -Chest x-ray shows no acute process. Shoulder x-ray shows no acute osseous pathology. Mild AC joint arthropathy CT interpreted by me (1pt min.). @ -Satinder CT without contrast shows no acute intracranial process. Nonspecific white matter changes likely secondary to chronic small vessel ischemic disease CTA shows no evidence of high-grade stenosis or intracranial aneurysm. Approximately 60% stenosis of the proximal right internal carotid artery and 40% stenosis of the proximal left internal carotid artery. Moderate stenosis involv ing the cavernous portions of the bilateral internal carotid arteries U/S interpreted by me (1pt. min.). @ -None done What testing was considered but not performed or refused? (CT, X-rays, U/S, labs)? Why? @ -None What meds were considered but not given or refused? Why? @ -None Did you discuss the management of the patient with other professionals (professionals i.e. , PA, FISCAL TECHNICIAN, lab, RT, psych nurse, social service agency director, motor bike mechanic, teacher, forest fire officer, leather case finisher)? Give summary @ -No Was smoking cessation discussed for >3mins.? @ -No Was critical care preformed (if so, how long)? @ -No Were there social determinants of health that impacted care today? How? (Homelessness, low income, unemployed, alcoholism, drug addiction, transportation, low edu. Level, literacy, decrease access to med. care, fci, rehab)? @ -No Was there de-escalation of care discussed even if they declined (Discuss DNR or withdrawal of care, Hospice)? DNR status @ -No What co-morbidities impacted this encounter? (DM, HTN, Smoking, COPD, CAD, Cancer, CVA, ARF, Chemo, Hep., AIDS, mental health diagnosis, sleep apnea, morbid obesity)? @ -None Was patient admitted / discharged? Hospital course, mention meds given and route, prescriptions, significant lab abnormalities, going to OR and other pertinent info. @ -78-year-old male presenting with multiple complaints. Patient is complaining of dyspnea, he does have history of COPD. Complaining of numbness in the bilateral feet which has been ongoing for several days. Is also complaining of shoulder pain which is worse with movement. History and physical examination are conducted. No acute process seen on x-ray is of the chest and shoulder. CT of the brain shows no acute process and CTA shows no high-grade stenosis. Lactic acid 3.6, patient is receiving IV fluids and is tolerating oral hydration. Negative for influenza, RSV, COVID. Urine shows no infectious process. On reassessment patient reports that he is feeling much better and would like to go home. He is educated on today's findings. He is on daily steroids at home. Instructed to follow-up with a vascular surgeon. Follow-up with PCP. Report back to ER with any new or worsening symptoms. Discussed return parameters and answered all questions. Patient conveyed verbal unders tanding and agreed to the plan. I discussed this case in detail with my attending Dr. Washington Undiagnosed new problem with uncertain prognosis? @ -No Drug Therapy requiring intensive monitoring for toxicity (Heparin, Nitro, Insulin, Cardizem)? @ -No Were any procedures done? @ -No Diagnosis/symptom? @ -Neuropathy, shoulder pain Acute, or Chronic, or Acute on Chronic? @ -Acute Uncomplicated (without systemic symptoms) or Complicated (systemic symptoms)? @ -Uncomplicated Side effects of treatment? @ -No Exacerbation, Progression, or Severe Exacerbation? @ -No Poses a threat to life or bodily function? How? (Chest pain, USA, NH, pneumonia, PE, COPD, DKA, ARF, appy, cholecystitis, CVA, Diverticulitis, Homicidal, Suicidal, threat to staff... and all critical care pts) @ -No Diagnosis/symptom? @COPD Acute, or Chronic, or Acute on Chronic? @Acute on chronic Uncomplicated (without systemic symptoms) or Complicated (systemic symptoms)? @Uncomplicated Side effects of treatment? @None Exacerbation, Progression, or Severe Exacerbation] @No Poses a threat to life or bodily function? @low likelihood - Lab Data Result diagrams: 06/21/24 20:14 06/21/24 20:14 Lab Results 06/21/24 06/21/24 06/21/24 Range/Units 20:14 20:14 20:14 WBC 12.1 H (3.8-10.6) k/uL RBC 4.27 L (4.30-5.90) m/uL Hgb 11.9 L (13.0-17.5) gm/dL Hct 38.0 L (39.0-53.0) % MCV 88.9 (80.0-100.0) fL MCH 27.9 (25.0-35.0) pg MCHC 31.3 (31.0-37.0) g/dL RDW 15.8 H (11.5-15.5) % Plt Count 318 (150-450) k/uL MPV 7.0 Neutrophils % 86 % Lymphocytes % 8 % Monocytes % 5 % Eosinophils % 0 % Basophils % 0 % Neutrophils # 10.4 H (1.3-7.7) k/uL Lymphocytes # 0.9 L (1.0-4.8) k/uL Monocytes # 0.6 (0-1.0) k/uL Eosinophils # 0.0 (0-0.7) k/uL Basophils # 0.0 (0-0.2) k/uL Hypochromasia Slight PT 11.0 (10.0-12.5) sec INR 1.0 (<1.2) APTT 20.9 L (22.0-30.0) sec Sodium 135 L (137-145) mmol/L Potassium 5.0 (3.5-5.1) mmol/L Chloride 96 L (98-107) mmol/L Carbon Dioxide 30 (22-30) mmol/L Anion Gap 9 mmol/L BUN 15 (9-20) mg/dL Creatinine 0.98 (0.66-1.25) mg/dL Est GFR (CKD-EPI)AfAm 87 (>60 ml/min/1.73 sqM) Est GFR (CKD-EPI)NonAf 75 (>60 ml/min/1.73 sqM) Glucose 172 H (74-99) mg/dL Lactic Ac Sepsis Rflx Plasma Lactic Acid Sandor (0.7-2.0) mmol/L Calcium 9.0 (8.4-10.2) mg/dL Magnesium 1.8 (1.6-2.3) mg/dL Total Bilirubin 0.6 (0.2-1.3) mg/dL AST 21 (17-59) U/L ALT 17 (4-49) U/L Alkaline Phosphatase 58 (38-126) U/L Troponin I (0.000-0.034) ng/mL NT-Pro-B Natriuret Pep 514 pg/mL Total Protein 6.2 L (6.3-8.2) g/dL Albumin 3.6 (3.5-5.0) g/dL Urine Color Urine Appearance (Clear) Urine pH (5.0-8.0) Ur Specific [place] (1.001-1.035) Urine Protein (Negative) Urine Glucose (UA) (Negative) Urine Ketones (Negative) Urine Blood (Negative) Urine Nitrite (Negative) Urine Bilirubin (Negative) Urine Urobilinogen (<2.0) mg/dL Ur Leukocyte Esterase (Negative) Influenza Type A (PCR) (Not Detectd) Influenza Type B (PCR) (Not Detectd) RSV (PCR) (Not Detectd) SARS-CoV-2 (PCR) (Not Detectd) 06/21/24 06/21/24 06/21/24 Range/Units 20:14 20:14 20:14 WBC (3.8-10.6) k/uL RBC (4.30-5.90) m/uL Hgb (13.0-17.5) gm/dL Hct (39.0-53.0) % MCV (80.0-100.0) fL MCH (25.0-35.0) pg MCHC (31.0-37.0) g/dL RDW (11.5-15.5) % Plt Count (150-450) k/uL MPV Neutrophils % % Lymphocytes % % Monocytes % % Eosinophils % % Basophils % % Neutrophils # (1.3-7.7) k/uL Lymphocytes # (1.0-4.8) k/uL Monocytes # (0-1.0) k/uL Eosinophils # (0-0.7) k/uL Basophils # (0-0.2) k/uL Hypochromasia PT (10.0-12.5) sec INR (<1.2) APTT (22.0-30.0) sec Sodium (137-145) mmol/L Potassium (3.5-5.1) mmol/L Chloride (98-107) mmol/L Carbon Dioxide (22-30) mmol/L Anion Gap mmol/L BUN (9-20) mg/dL Creatinine (0.66-1.25) mg/dL Est GFR (CKD-EPI)AfAm (>60 ml/min/1.73 sqM) Est GFR (CKD-EPI)NonAf (>60 ml/min/1.73 sqM) Glucose (74-99) mg/dL Lactic Ac Sepsis Rflx Plasma Lactic Acid Sandor 3.6 H* (0.7-2.0) mmol/L Calcium (8.4-10.2) mg/dL Magnesium (1.6-2.3) mg/dL Total Bilirubin (0.2-1.3) mg/dL AST (17-59) U/L ALT (4-49) U/L Alkaline Phosphatase (38-126) U/L Troponin I 0.015 (0.000-0.034) ng/mL NT-Pro-B Natriuret Pep pg/mL Total Protein (6.3-8.2) g/dL Albumin (3.5-5.0) g/dL Urine Color Urine Appearance (Clear) Urine pH (5.0-8.0) Ur Specific [place] (1.001-1.035) Urine Protein (Negative) Urine Glucose (UA) (Negative) Urine Ketones (Negative) Urine Blood (Negative) Urine Nitrite (Negative) Urine Bilirubin (Negative) Urine Urobilinogen (<2.0) mg/dL Ur Leukocyte Esterase (Negative) Influenza Type A (PCR) Not Detected (Not Detectd) Influenza Type B (PCR) Not Detected (Not Detectd) RSV (PCR) Not Detected (Not Detectd) SARS-CoV-2 (PCR) Not Detected (Not Detectd) 06/21/24 06/21/24 06/21/24 Range/Units 21:09 22:56 23:49 WBC (3.8-10.6) k/uL RBC (4.30-5.90) m/uL Hgb (13.0-17.5) gm/dL Hct (39.0-53.0) % MCV (80.0-100.0) fL MCH (25.0-35.0) pg MCHC (31.0-37.0) g/dL RDW (11.5-15.5) % Plt Count (150-450) k/uL MPV Neutrophils % % Lymphocytes % % Monocytes % % Eosinophils % % Basophils % % Neutrophils # (1.3-7.7) k/uL Lymphocytes # (1.0-4.8) k/uL Monocytes # (0-1.0) k/uL Eosinophils # (0-0.7) k/uL Basophils # (0-0.2) k/uL Hypochromasia PT (10.0-12.5) sec INR (<1.2) APTT (22.0-30.0) sec Sodium (137-145) mmol/L Potassium (3.5-5.1) mmol/L Chloride (98-107) mmol/L Carbon Dioxide (22-30) mmol/L Anion Gap mmol/L BUN (9-20) mg/dL Creatinine (0.66-1.25) mg/dL Est GFR (CKD-EPI)AfAm (>60 ml/min/1.73 sqM) Est GFR (CKD-EPI)NonAf (>60 ml/min/1.73 sqM) Glucose (74-99) mg/dL Lactic Ac Sepsis Rflx Y Plasma Lactic Acid Sandor 2.3 H* (0.7-2.0) mmol/L Calcium (8.4-10.2) mg/dL Magnesium (1.6-2.3) mg/dL Total Bilirubin (0.2-1.3) mg/dL AST (17-59) U/L ALT (4-49) U/L Alkaline Phosphatase (38-126) U/L Troponin I (0.000-0.034) ng/mL NT-Pro-B Natriuret Pep pg/mL Total Protein (6.3-8.2) g/dL Albumin (3.5-5.0) g/dL Urine Color Yellow Urine Appearance Clear (Clear) Urine pH 6.5 (5.0-8.0) Ur Specific [place] 1.043 H (1.001-1.035) Urine Protein Trace H (Negative) Urine Glucose (UA) Negative (Negative) Urine Ketones Negative (Negative) Urine Blood Negative (Negative) Urine Nitrite Negative (Negative) Urine Bilirubin Negative (Negative) Urine Urobilinogen 2.0 (<2.0) mg/dL Ur Leukocyte Esterase Negative (Negative) Influenza Type A (PCR) (Not Detectd) Influenza Type B (PCR) (Not Detectd) RSV (PCR) (Not Detectd) SARS-CoV-2 (PCR) (Not Detectd) 06/22/24 Range/Units 01:05 WBC (3.8-10.6) k/uL RBC (4.30-5.90) m/uL Hgb (13.0-17.5) gm/dL Hct (39.0-53.0) % MCV (80.0-100.0) fL MCH (25.0-35.0) pg MCHC (31.0-37.0) g/dL RDW (11.5-15.5) % Plt Count (150-450) k/uL MPV Neutrophils % % Lymphocytes % % Monocytes % % Eosinophils % % Basophils % % Neutrophils # (1.3-7.7) k/uL Lymphocytes # (1.0-4.8) k/uL Monocytes # (0-1.0) k/uL Eosinophils # (0-0.7) k/uL Basophils # (0-0.2) k/uL Hypochromasia PT (10.0-12.5) sec INR (<1.2) APTT (22.0-30.0) sec Sodium (137-145) mmol/L Potassium (3.5-5.1) mmol/L Chloride (98-107) mmol/L Carbon Dioxide (22-30) mmol/L Anion Gap mmol/L BUN (9-20) mg/dL Creatinine (0.66-1.25) mg/dL Est GFR (CKD-EPI)AfAm (>60 ml/min/1.73 sqM) Est GFR (CKD-EPI)NonAf (>60 ml/min/1.73 sqM) Glucose (74-99) mg/dL Lactic Ac Sepsis Rflx Y Plasma Lactic Acid Sandor (0.7-2.0) mmol/L Calcium (8.4-10.2) mg/dL Magnesium (1.6-2.3) mg/dL Total Bilirubin (0.2-1.3) mg/dL AST (17-59) U/L ALT (4-49) U/L Alkaline Phosphatase (38-126) U/L Troponin I (0.000-0.034) ng/mL NT-Pro-B Natriuret Pep pg/mL Total Protein (6.3-8.2) g/dL Albumin (3.5-5.0) g/dL Urine Color Urine Appearance (Clear) Urine pH (5.0-8.0) Ur Specific [place] (1.001-1.035) Urine Protein (Negative) Urine Glucose (UA) (Negative) Urine Ketones (Negative) Urine Blood (Negative) Urine Nitrite (Negative) Urine Bilirubin (Negative) Urine Urobilinogen (<2.0) mg/dL Ur Leukocyte Esterase (Negative) Influenza Type A (PCR) (Not Detectd) Influenza Type B (PCR) (Not Detectd) RSV (PCR) (Not Detectd) SARS-CoV-2 (PCR) (Not Detectd) Disposition Clinical Impression: Neuropathy, Shoulder pain Disposition: HOME SELF-CARE Condition: Fair Instructions (If sedation given, give patient instructions): COPD (Chronic Obstructive Pulmonary Disease) (ED), Peripheral Neuropathy (ED), Shoulder Pain (ED) Additional Instructions: Follow-up with PCP and vascular surgeon. Report back to ER with any new or worsening symptoms. Is patient prescribed a controlled substance at d/c from ED?: No Referrals: Enrrique Reese DO [Primary Care Provider] - 1-2 days Na Mckeon DO [STAFF PHYSICIAN] - 1-2 days Time of Disposition: 00:07
[2024-06-21 20:48] LABS: ALT 17 U/L (4-49); AST 21 U/L (17-59); African American GFR (CKD) 87 (>60 ml/min/1.73 sqM); Albumin 3.6 g/dL (3.5-5.0); Alkaline Phosphatase 58 U/L (38-126); Anion Gap 9 mmol/L; Blood Urea Nitrogen 15 mg/dL (9-20); Carbon Dioxide 30 mmol/L (22-30); Chloride 96 mmol/L (98-107); Glucose 172 mg/dL (74-99); Magnesium 1.8 mg/dL (1.6-2.3); Non-African American GFR(CKD) 75 (>60 ml/min/1.73 sqM); Sodium 135 mmol/L (137-145); Total Bilirubin 0.6 mg/dL (0.2-1.3); Total Protein 6.2 g/dL (6.3-8.2)
--- NOTE | 2024-06-21 20:48 | XR ---
EXAMINATION TYPE: XR chest 2V DATE OF EXAM: 06/21/2024 8:43 PM COMPARISON: Chest radiographs from 06/14/2024 TECHNIQUE: XR chest 2V Frontal and lateral views of the chest. CLINICAL INDICATION:Male, 78 years old with history of difficulty breathing; FINDINGS: Lungs/Pleura: There is flattening of the diaphragm with increased lucency of the lungs. No evidence o f pneumothorax, pleural effusion or focal consolidation. Pulmonary vascularity: Unremarkable. Heart/mediastinum: Cardiomediastinal silhouette is enlarged and stable. Prominent left epicardial fa t pad redemonstrated. Musculoskeletal: Multiple level degenerative disc disease changes seen throughout the spine. No acute osseous abnormality. IMPRESSION: 1. No acute cardiopulmonary disease process. 2. COPD changes. [facility], , 06/21/2024 8:45 PM
--- NOTE | 2024-06-21 20:49 | XR ---
EXAMINATION TYPE: XR shoulder complete LT DATE OF EXAM: 06/21/2024 8:43 PM INDICATION: Patient age:Male; 78 years old; Reason for study: pain; pain COMPARISON: No direct comparisons. TECHNIQUE: The left shoulder was examined in AP, internally rotated and scapular Y projections. . FINDINGS: No evidence of acute osseous pathology, joint dislocation, or soft tissue swelling. Mild AC joint art hropathy with inferior surface spurring. The remaining portions of the visualized chest are unremarka ble. IMPRESSION: 1. No acute osseous pathology. 2. Mild AC joint arthropathy. [facility], , 06/21/2024 8:46 PM
[2024-06-21 20:50] LABS: Partial Thromboplastin Time 20.9 sec (22.0-30.0)
[2024-06-21 20:56] LABS: NT-Pro-B-Type Natriuretic Pept 514 pg/mL
[2024-06-21 21:01] LABS: Influenza A Not Detected (Not Detectd); Influenza B Not Detected (Not Detectd); RSV Not Detected (Not Detectd)
--- NOTE | 2024-06-21 21:14 | CT ---
EXAMINATION TYPE: CT brain wo con CT DLP: 2243.4 mGycm, Automated exposure control for dose reduction was used. DATE OF EXAM: 06/21/2024 9:08 PM COMPARISON: None. CLINICAL INDICATION:Male, 78 years old with history of leg numbness/weakness, AMS TECHNIQUE: Brain: Multiple axial CT images of the brain were obtained without IV contrast. . Coronal and sagitta l reformats reviewed. FINDINGS: Brain: Extra-axial spaces: No abnormal extra-axial fluid collections. Ventricular system: Within normal limits Cerebral parenchyma: Mild age-appropriate cerebral volume loss. No acute intraparenchymal hemorrhage or mass effect. The meyer-white junction is well differentiated. Scattered hypoattenuating areas are seen within the periventricular white matter. Cerebellum: Unremarkable. Mass effect: No evidence of midline shift. Intracranial vasculature: Atherosclerotic calcifications of the intracranial vessels. Soft tissues: Normal. Calvarium/osseous structures: No depressed skull fracture. Paranasal sinuses and mastoid air cells: Mild scattered paranasal sinus disease. Visualized orbits: Orbital contents are intact. IMPRESSION: 1. No acute intracranial process. 2. Nonspecific white matter changes, likely secondary to chronic small vessel ischemic disease. [facility], , 06/21/2024 9:12 PM
--- NOTE | 2024-06-21 21:36 | CT ---
EXAMINATION TYPE: CT angio head CT DLP: 2513.9 mGycm, Automated exposure control for dose reduction was used. DATE OF EXAM: 06/21/2024 9:21 PM COMPARISON: CT brain 06/21/2024. CLINICAL INDICATION:Male, 78 years old with history of leg numbness/weakness; PHH, leg numbness TECHNIQUE: Axially acquired helical CT angiogram of the head was obtained with contrast utilizing 75 cc of Isovue-370 administered intravenously. Axial images are supplemented with MIP reconstructions w hich were post-processed at an independent workstation. NASCET criteria used. FINDINGS: No evidence of acute intracranial hemorrhage, mass effect, or midline shift. The ventricles, sulci, a nd cisterns are unremarkable. The visualized portions of the internal carotid arteries, middle cerebral arteries, anterior cerebral arteries, and posterior cerebral arteries are patent. The basilar and vertebral arteries are patent. The common carotid artery and external carotid artery are patent. Moderate atherosclerotic plaque at the carotid bifurcation extending into the proximal right internal carotid artery. Approximately 60% stenosis in the proximal internal carotid artery secondary to calcified and noncalcified plaque. Mode rate stenosis involving the cavernous portion of the internal carotid artery. The common carotid artery and external carotid artery are patent. Mild stenosis of the origin of the external carotid artery secondary to calcified plaque. Moderate atherosclerotic plaque at the carotid bifurcation extending into the proximal left internal carotid artery. Approximately 40% stenosis pro ximal internal carotid artery secondary to calcified plaque. Moderate stenosis involving the cavernou s portion of the internal carotid artery. Vertebral arteries are patent without evidence hemodynamically significant stenosis. Dominant left ve rtebral artery with diminutive right vertebral artery. There is a three-vessel aortic arch. The origins of the great vessels are patent. No evidence of hemo dynamically significant stenosis. Centrilobular emphysematous changes. IMPRESSION: 1. No evidence of high-grade stenosis or intracranial aneurysm. 2. Approximately 60% stenosis of the proximal right internal carotid artery and 40% stenosis of the proximal left internal carotid artery. Moderate stenosis involving the cavernous portions of the bila teral internal carotid arteries. [facility], , 06/21/2024 9:33 PM
[2024-06-21] MEDS: SODIUM CHLORIDE 0.9% 500 ML 500 ML IV ONE (21:43)
[2024-06-21] MEDS: methylPREDNISolone SOD SUCCI 125 MG/2 ML VIAL IVP ONE (22:03)
[2024-06-21] MEDS: IPRATROPIUM-ALBUTEROL 3 ML NEB INHALATION STA (22:24)
[2024-06-21] MEDS: HYDROcodone/APAP 7.5-325MG 1 EACH TAB PO ONE (22:59)
[2024-06-21 23:54] LABS: Appearance,Urine Clear (Clear); Bilirubin,Urine Negative (Negative); Blood,Urine Negative (Negative); Color,Urine Yellow; Glucose,Urine (UA) Negative (Negative); Ketones,Urine Negative (Negative); Leukocyte Esterase,Urine Negative (Negative); Nitrite,Urine Negative (Negative); PH, Urine 6.5 (5.0-8.0); Protein,Urine Trace (Negative); Specific Gravity,Urine 1.043 (1.001-1.035)
[2024-06-22 00:31] VITALS: BP 122/76; PULSE 84; RESP 17
== END 2024-06-22 00:31 | disposition home or self-care (01) ==
LOC: EC 19:38
DX: G62.9 Polyneuropathy, unspecified (principal); M25.512 Pain in left shoulder; J44.9 Chronic obstructive pulmonary disease, unspecified; Z87.891 Personal history of nicotine dependence; Z88.1 Allergy status to other antibiotic agents; Z88.8 Allergy status to other drugs, medicaments and biological substances
CPT/HCPCS: 36415 ×2; 94640; 93005; 83880; 80053; 83605; 83735; 84484; 85025; 85610; 85730; 81003; 87636; 73030; 71046; 70496; 70450; 99285; 96374; Q9967; J2919

== ENCOUNTER 2024-06-22 16:42 | Inpatient (IN) | payer OTHER, MEDICARE ==
--- NOTE | 2024-06-22 17:26 | ED ---
General Adult HPI - General Chief complaint: Shortness of Breath Stated complaint: DAVID Time Seen by Provider: 06/22/24 17:00 Source: patient Mode of arrival: wheelchair Limitations: no limitations - History of Present Illness Initial comments: Dictation was produced using [employer] dictation software. please excuse any grammatical, word or spelling errors. Chief Complaint: 78-year-old male dyspnea History of Present Illness: Patient 78-year-old male with history of COPD wears home oxygen at 3 L nasal cannula was seen here in the emergency department for shoulder pain. Patient was discharged however states that when he got home his shortness of breath feel like it was gotten worse. Denies any fever, chills or night sweats states that his dyspnea had been acutely worsening over the last 2 to 3 days. The ROS documented in this emergency department record has been reviewed and confirmed by me. Those systems with pertinent positive or negative responses have been documented in the HPI. All other systems are other negative and/or noncontributory. - Related Data Home Medications Medication Instructions Recorded Confirmed Aspirin EC [Ecotrin Low Dose] 81 mg PO DAILY 06/22/18 06/22/24 Budesonide/Formoterol Fumarate 2 puff INHALATION RT-BID 06/22/18 06/22/24 [Symbicort 160-4.5 Mcg Inhaler] Ipratropium/Albuterol Sulfate 1 puff INHALATION RT-QID 06/22/18 06/22/24 [Combivent Respimat Inhaler] Metoprolol Tartrate [Lopressor] 25 mg PO BID 06/22/18 06/22/24 Clopidogrel Bisulfate [Plavix] 75 mg PO DAILY 07/01/18 06/22/24 Albuterol Inhaler [Ventolin Hfa 2 puff INHALATION RT-TID PRN 12/07/19 06/22/24 Inhaler] Albuterol Nebulized [Ventolin 2.5 mg INHALATION RT-QID 12/07/19 06/22/24 Nebulized] Loratadine [Claritin] 10 mg PO DAILY 12/07/19 06/22/24 Simvastatin [Zocor] 40 mg PO HS 12/07/19 06/22/24 Tiotropium 18 Mcg/Puff [Spiriva] 2 puff INHALATION RT-DAILY 12/07/19 06/22/24 Cholecalciferol [Vitamin D3 (25 25 mcg PO BID 03/17/24 06/22/24 Mcg = 1000 Iu)] Ferrous Sulfate [Iron (65 MG 325 mg PO W/LUNCH 04/06/24 06/22/24 Elemental)] Folic Acid 1 mg PO DAILY 04/06/24 06/22/24 Vitamin B-12 50mcg 50 mcg PO DAILY 04/06/24 06/22/24 Furosemide [Lasix] 20 mg PO DAILY 04/16/24 06/22/24 Azithromycin [Zithromax] 500 mg PO MOWEFR 06/09/24 06/22/24 Previous Rx's Medication Instructions Recorded Gabapentin [Neurontin] 200 mg PO TID #90 cap 06/11/24 Montelukast [Singulair] 10 mg PO HS #30 tab 06/16/24 Pantoprazole [Protonix] 40 mg PO AC-BRKFST #30 tab 06/16/24 predniSONE See Taper PO DIRECTED #30 tab 06/16/24 Allergies Allergy/AdvReac Type Severity Reaction Status Date / Time fluticasone AdvReac Nausea Verified 06/22/24 17:52 [From Wixela Inhub] levofloxacin [From Levaquin] AdvReac TENDON PAIN Verified 06/22/24 17:52 salmeterol AdvReac Nausea Verified 06/22/24 17:52 [From Wixela Inhub] Review of Systems ROS Statement: Those systems with pertinent positive or pertinent negative responses have been documented in the HPI. ROS Other: All systems not noted in ROS Statement are negative. Past Medical History Past Medical History: Coronary Artery Disease (CAD), COPD, GERD/Reflux, Hyperlipidemia, Hypertension, Myocardial Infarction (IA), Pulmonary Embolus (PE), Renal Disease Additional Past Medical History / Comment(s): home O2 (3L NC HS), bilateral PEs in 2003, history ETOH abuse - pt states he has never had withdrawal symptoms, chronic low back pain/sciatica/spurs/disc disease - much improved after back injections, past urinary retention, diverticulitis/benign colon polyps removed, nephrolithiasis - passed stones on his own, shingelles 16 years ago - R shoulder. Last Myocardial Infarction Date:: 2010 History of Any Multi-Drug Resistant Organisms: None Reported Past Surgical History: Heart Catheterization With Stent Additional Past Surgical History / Comment(s): back injections for pain, piece of metal removed from right eye, EGD, colonoscopy Past Anesthesia/Blood Transfusion Reactions: No Reported Reaction Additional Past Anesthesia/Blood Transfusion Reaction / Comment(s): claustrophobia Date of Last Stent Placement:: 2010 Past Psychological History: Anxiety, Depression, PTSD Smoking Status: Former smoker Past Alcohol Use History: None Reported Past Drug Use History: None Reported - Past Family History Mother Family Medical History: Cancer Additional Family Medical History / Comment(s): from breast cancer at age 5 3. Father Family Medical History: Coronary Artery Disease (CAD), Myocardial Infarction (IA) Additional Family Medical History / Comment(s): 4 MIs/CABG. at age 72. General Exam - General Exam Comments Initial Comments: PHYSICAL EXAM: General Impression: Alert and oriented x3, dyspneic HEENT: Normocephalic atraumatic, extra-ocular movements intact, pupils equal and reactive to light bilaterally, mucous membranes moist. Cardiovascular: Heart regular rate and rhythm Chest: 3 word sentences, diffuse end expiratory wheezing, positive retractions Abdomen: abdomen soft, non-tender, non-distended, no organomegaly Musculoskeletal: Pulses present and equal in all extremities, no peripheral edema Motor: no focal deficits noted Neurological: CN II-XII grossly intact, no focal motor or sensory deficits noted Skin: Intact with no visualized rashes Psych: Normal affect and mood Limitations: no limitations Course Vital Signs 06/22/24 06/22/24 06/22/24 16:47 17:04 17:07 Temperature 97.4 F L 97.7 F Pulse Rate 105 H 108 H Respiratory 24 20 20 Rate Blood Pressure 105/69 120/72 O2 Sat by Pulse 100 100 Oximetry 06/22/24 06/22/24 17:36 17:51 Temperature Pulse Rate 101 H 105 H Respiratory Rate Blood Pressure O2 Sat by Pulse Oximetry EKG Findings - EKG Comments: EKG Findings:: My EKG interpretation: Ventricular rate 103, sinus tachycardia,. 151, QRS 97, QTc 4 7. No SD prolongation, no QTC prolongation, no ST or T-wave changes noted. Overall, this EKG is unremarkable Medical Decision Making - Medical Decision Making Was pt. sent in by a medical professional or institution (, PA, [employer]IC, urgent care, hospital, or senior living...) When possible be specific @ -No Did you speak to anyone other than the patient for history (EMS, parent, family, police, friend...)? What history was obtained from this source @ -No Did you review nursing and triage notes (agree or disagree)? Why? @ -I reviewed and agree with nursing and triage notes Were old charts reviewed (outside hosp., previous admission, EMS record, old EKG, old radiological studies, urgent care reports/EKG's, senior living records)? Report findings @ -No old charts were reviewed Differential Diagnosis (chest pain, altered mental status, abdominal pain women, abdominal pain men, vaginal bleeding, musculoskeletal, weakness, fever, dyspnea, syncope, headache, dizziness, GI bleed, back pain, seizure, CVA, palpatations, mental health)? @ -Differential Dyspnea: Coronary syndrome, arrhythmia, tamponade, asthma, COPD, pulmonary embolism, pneumonia, pneumothorax, pulmonary effusion, anaphylaxis, diabetic ketoacidosis, flailed chest, pulmonary contusion, diaphragmatic rupture, anemia, neuromuscular, this is not meant to be an all-inclusive list. EKG interpreted by me (3pts min.). @ -See above X-rays interpreted by me (1pt min.). @ -Chest x-ray shows no acute processes CT interpreted by me (1pt min.). @ -None done U/S interpreted by me (1pt. min.). @ -None done What testing was considered but not performed or refused? (CT, X-rays, U/S, labs)? Why? @ -None What meds were considered but not given or refused? Why? @ -None Was smoking cessation discussed for >3mins.? @ -No Were there social determinants of health that impacted care today? How? (Homelessness, low income, unemployed, alcoholism, drug addiction, transportation, low edu. Level, literacy, decrease access to med. care, fdc, rehab)? @ -No Was there de-escalation of care discussed even if they declined (Discuss DNR or withdrawal of care, Hospice)? DNR status @ -No What co-morbidities impacted this encounter? (DM, HTN, Smoking, COPD, CAD, Cancer, CVA, ARF, Chemo, Hep., AIDS, mental health diagnosis, sleep apnea, morbid obesity)? @ -COPD, O2 dependence Was patient admitted / discharged? Hospital course, mention meds given and route, prescriptions, significant lab abnormalities, going to OR and other pertinent info. @ -78-year-old male represents to the ER for dyspnea. Vital signs upon arrival shows mild tachycardia 105. Patient has end expiratory wheezing on physical examination he is clearly dyspneic at the bedside. Laboratory evaluation obtained. Labs within acceptable limits. Troponin slightly elevated 0.025 with a BNP of 941. Patient significant distress will be admitted with pulmonary consult and COPD management. Did you discuss the management of the patient with other professionals (professionals i.e. , PA, [employer]IC, lab, RT, psych nurse, clinical social work therapist, welding technician, teacher, house officer, director of casework)? Give summary @ -Case discussed with hospitalist for admission Was critical care preformed (if so, how long)? @ -No Undiagnosed new problem with uncertain prognosis? @ -No Drug Therapy requiring intensive monitoring for toxicity (Heparin, Nitro, Insulin, Cardizem)? @ -No Were any procedures done? @ -No Diagnosis/symptom? Acute, or Chronic, or Acute on Chronic? Uncomplicated (without systemic symptoms) or Complicated (systemic symptoms)? @ -COPD exacerbation Side effects of treatment? @ -No Exacerbation, Progression, or Severe Exacerbation? @ -No Poses a threat to life or bodily function? How? (Chest pain, USA, IA, pneumonia, PE, COPD, DKA, ARF, appy, cholecystitis, CVA, Diverticulitis, Homicidal, Suicidal, threat to staff... and all critical care pts) @ -yes - Lab Data Result diagrams: 06/22/24 17:32 06/22/24 17:32 Lab Results 06/22/24 06/22/24 06/22/24 Range/Units 17:32 17:32 17:32 WBC 10.9 H (3.8-10.6) k/uL RBC 3.98 L (4.30-5.90) m/uL Hgb 11.1 L (13.0-17.5) gm/dL Hct 34.4 L (39.0-53.0) % MCV 86.6 (80.0-100.0) fL MCH 27.9 (25.0-35.0) pg MCHC 32.2 (31.0-37.0) g/dL RDW 16.0 H (11.5-15.5) % Plt Count 339 (150-450) k/uL MPV 7.3 Neutrophils % 88 % Lymphocytes % 6 % Monocytes % 5 % Eosinophils % 0 % Basophils % 0 % Neutrophils # 9.6 H (1.3-7.7) k/uL Lymphocytes # 0.7 L (1.0-4.8) k/uL Monocytes # 0.5 (0-1.0) k/uL Eosinophils # 0.0 (0-0.7) k/uL Basophils # 0.0 (0-0.2) k/uL Anisocytosis Slight Sodium 129 L (137-145) mmol/L Potassium 5.4 H (3.5-5.1) mmol/L Chloride 96 L (98-107) mmol/L Carbon Dioxide 25 (22-30) mmol/L Anion Gap 8 mmol/L BUN 13 (9-20) mg/dL Creatinine 0.72 (0.66-1.25) mg/dL Est GFR (CKD-EPI)AfAm >90 (>60 ml/min/1.73 sqM) Est GFR (CKD-EPI)NonAf >90 (>60 ml/min/1.73 sqM) Glucose 152 H (74-99) mg/dL Calcium 9.1 (8.4-10.2) mg/dL Troponin I 0.025 (0.000-0.034) ng/mL NT-Pro-B Natriuret Pep 941 pg/mL Disposition Clinical Impression: COPD exacerbation Disposition: ADMITTED IP TO THIS HOSP Condition: Fair Referrals: Enrrique Reese DO [Primary Care Provider] - 1-2 days Decision Time: 19:57
[2024-06-22] MEDS: ALBUTEROL NEBULIZED 2.5 MG/3 ML INHALATION STA (17:32)
[2024-06-22] MEDS: IPRATROPIUM 0.5 MG/2.5 ML NEBU INHALATION STA (17:34)
[2024-06-22 17:47] LABS: Anisocytosis Slight; Basophils % (A) 0 %; Eosinophils % (A) 0 %; HCT 34.4 % (39.0-53.0); HGB 11.1 gm/dL (13.0-17.5); Lymphocytes # (A) 0.7 k/uL (1.0-4.8); Lymphocytes % (A) 6 %; MCH 27.9 pg (25.0-35.0); MCHC 32.2 g/dL (31.0-37.0); MCV 86.6 fL (80.0-100.0); Mean Platelet Volume 7.3; Monocytes # (A) 0.5 k/uL (0-1.0); Monocytes % (A) 5 %; Neutrophils # (A) 9.6 k/uL (1.3-7.7); Neutrophils % (A) 88 %; Platelet Count 339 k/uL (150-450); RBC 3.98 m/uL (4.30-5.90); WBC 10.9 k/uL (3.8-10.6)
[2024-06-22 17:50] LABS: African American GFR (CKD) >90 (>60 ml/min/1.73 sqM); Anion Gap 8 mmol/L; Blood Urea Nitrogen 13 mg/dL (9-20); Calcium 9.1 mg/dL (8.4-10.2); Carbon Dioxide 25 mmol/L (22-30); Chloride 96 mmol/L (98-107); Glucose 152 mg/dL (74-99); Non-African American GFR(CKD) >90 (>60 ml/min/1.73 sqM); Sodium 129 mmol/L (137-145)
[2024-06-22 17:52] LABS: Potassium 5.4 mmol/L (3.5-5.1)
[2024-06-22 17:59] LABS: NT-Pro-B-Type Natriuretic Pept 941 pg/mL
--- NOTE | 2024-06-22 19:45 | XR ---
EXAMINATION TYPE: XR chest 2V DATE OF EXAM: 06/22/2024 7:38 PM COMPARISON: Chest x-ray from one day earlier CLINICAL INDICATION: Male, 78 years old with history of dyspnea, TECHNIQUE: Frontal and lateral views of the chest are obtained. FINDINGS: Chronic emphysematous change redemonstrated. Stable mild cardiomegaly. There is no focal a ir space opacity, pleural effusion, or pneumothorax seen. Multilevel spurring and Bridging osteophyte s in the thoracic spine are again seen. IMPRESSION: Chronic emphysematous change and mild cardiomegaly without acute pulmonary process. [facility], , 06/22/2024 7:42 PM
[2024-06-22] MEDS ORDERED: NALOXONE 0.4 MG/ML 1 ML VIAL IVP PRN (19:53)
[2024-06-22] MEDS: IPRATROPIUM-ALBUTEROL 3 ML NEB INHALATION SCH (20:02)
[2024-06-22] MEDS: IPRATROPIUM-ALBUTEROL 3 ML NEB INHALATION STA (20:02)
[2024-06-22] MEDS: DEXAMETHASONE SOD PHOSPHATE 10 MG/ML 1 ML VIAL IV STA (20:11)
[2024-06-22] MEDS: AZITHROMYCIN 500 MG TAB PO SCH (20:31)
[2024-06-22] MEDS ORDERED: IPRATROPIUM-ALBUTEROL 3 ML NEB INHALATION PRN (22:31)
[2024-06-22] MEDS ORDERED: ALBUTEROL NEBULIZED 2.5 MG/3 ML INHALATION PRN (22:32)
[2024-06-22] MEDS ORDERED: DEXTROSE 50% SYRINGE 50 ML IVP PRN ×2 (23:04)
[2024-06-23] MEDS ORDERED: BENZOCAINE SPRAY 1 EACH MM PRN (01:00)
--- NOTE | 2024-06-23 02:57 | P.HPIM ---
History of Present Illness H&P Date: 06/22/24 Patient is a 78-year-old male with past medical history significant for very severe COPD on 3 L at night, HFpEF, CAD with multiple stents, hypertension, non insulin-dependent diabetes mellitus, history of PE, hyperlipidemia presenting with shortness of breath. Today he was vacuuming at home without oxygen when he had increased work of breathing. He attempted nebulizer breathing treatment without relief so he called EMS. He was discharged on 06/16/2024 for the same symptoms. He utilizes albuterol nebulizers, Symbicort, Spiriva but states that they are not working well enough. He denies worsened cough or increased sputum production. He drinks 40-80oz fluid per day, mostly water. He states compliance with all of his medications. He reports lower extremity edema and dyspnea. His denies changes in appetite, fever/chills, nausea/vomiting, chest pain, abdominal pain. Initial vitals: BP 105/69, DC 105 bpm, RR 24, 97.4 F, 100% on 3 L nasal cannula Initial labs: WBC 10.9, hemoglobin 11.1, platelets 339, sodium 129, potassium 5.4hemolyzed, chloride 96, BUN 13, creatinine 0.72, glucose 152, troponin x 1: 0.025, BNP 941 Initial EKG: Sinus tachycardia with ventricular rate 103 bpm, no ST segment changes, QTc 407 ms Initial chest x-ray: Chronic emphysematous change and mild cardiomegaly without acute pulmonary process ED documentation reviewed. Given DuoNeb x 1, Decadron 10 mg IV x 1, Atrovent 0.5 mg x 1, albuterol 10 mg x 1 Review of Systems: Pertinent positives and negatives as discussed in HPI, a complete review of systems was performed and all other systems are negative. Physical Exam: Vital signs reviewed General: Nontoxic, no distress, appears stated age, well-appearing Derm: Warm, dry, intact, no cyanosis Head: Atraumatic, normocephalic, symmetric Eyes: EOMI, anicteric sclera, PERRL Ears: Normal appearing, no external lesions, hearing intact Nose: Normal appearing, no external lesions Mouth: No lip lesion, mucus membranes moist, no tonsilar hypertrophy or exudate Neck: Supple, without lesions, trachea midline Cardiovascular: S1-S2 regular, no murmur, 2+ bilateral lower extremities pitting edema to the distal thigh Lungs: Mild diffuse wheezes, no rhonchi, no rales, no accessory muscle use Abdominal: Soft, non-tender to palpation, bowel sounds present, obese Extremities: Muscle strength 5/5 in all extremities, radial pulses 2+ bilateral Neuro: Alert, oriented x 4, gross neurological examination did not reveal any focal deficits. Cranial nerves II to XII grossly intact. Psych: Appropriate affect and mood Assessment and Plan: Patient is a 78-year-old male with past medical history significant for very severe COPD on 3 L mostly at night, HFpEF, CAD with multiple stents, hypertension, none insulin-dependent diabetes mellitus, history of PE, hyperlipidemia admitted for COPD exacerbation. Active #. Acute COPD exacerbation, type 3 #. Chronic hypoxic respiratory failure Chest x-ray: Chronic emphysematous change and mild cardiomegaly without acute pulmonary process 3 L oxygen at home, currently at baseline Continue DuoNeb every 4 hours and as needed Continue Symbicort twice daily Continue Solu-Medrol 60 mg IV every 12 hours Pulmonary consulted #. Tvr-cosfwrv-hjfzkzarz diabetes mellitus, uncontrolled #. Hyperglycemia #. Neuropathy A1c 06/10/2024 was 7.1 Glucose 152 Accu-Cheks ACHS Insulin sliding scale Monitor for hypoglycemia Continue gabapentin 200 mg 3 times daily Consult social work for outpatient diabetic supplies/support as patient states he has not received any counseling #. Hypervolemic hyponatremia Sodium 129, chloride 96 Fluid restriction of 1500cc per day Repeat BMP in the morning Obtain hyponatrema workup Multiple recent admissions for COPD Obtain social work consult as patient may need more help at home May benefit from palliative care consult in setting of end-stage COPD Chronic #. HFpEF, not in acute exacerbation #. Hyperlipidemia #. CAD #. Hypertension #. History of PE not on anticoagulation #. Normocytic anemia Continue home medications DVT prophylaxis: Lovenox 40 mg subcutaneous daily GI prophylaxis: Protonix 40 mg p.o.daily The patient is admitted with an anticipated less than 2 midnight stay for evaluation of acute COPD exacerbation. CODE STATUS: Full code Anticipated discharge place: Pending clinical course Past Medical History Past Medical History: Coronary Artery Disease (CAD), COPD, GERD/Reflux, Hyperlipidemia, Hypertension, Myocardial Infarction (MT), Pulmonary Embolus (PE), Renal Disease Additional Past Medical History / Comment(s): home O2 (3L [place]), bilateral PEs in 2003, history ETOH abuse - pt states he has never had withdrawal symptoms, chronic low back pain/sciatica/spurs/disc disease - much improved after back injections, past urinary retention, diverticulitis/benign colon polyps removed, nephrolithiasis - passed stones on his own, shingelles 16 years ago - R shoulder. Last Myocardial Infarction Date:: 2010 History of Any Multi-Drug Resistant Organisms: None Reported Past Surgical History: Heart Catheterization With Stent Additional Past Surgical History / Comment(s): back injections for pain, piece of metal removed from right eye, EGD, colonoscopy Past Anesthesia/Blood Transfusion Reactions: No Reported Reaction Additional Past Anesthesia/Blood Transfusion Reaction / Comment(s): claustrophobia Date of Last Stent Placement:: 2010 Past Psychological History: Anxiety, Depression, PTSD Smoking Status: Former smoker Past Alcohol Use History: None Reported Past Drug Use History: None Reported - Past Family History Mother Family Medical History: Cancer Additional Family Medical History / Comment(s): from breast cancer at age 53. Father Family Medical History: Coronary Artery Disease (CAD), Myocardial Infarction (MT) Additional Family Medical History / Comment(s): 4 MIs/CABG. at age 72. Medications and Allergies Home Medications Medication Instructions Recorded Confirmed Type Aspirin EC [Ecotrin Low Dose] 81 mg PO DAILY 06/22/18 06/22/24 History Budesonide/Formoterol Fumarate 2 puff INHALATION RT-BID 06/22/18 06/22/24 History [Symbicort 160-4.5 Mcg Inhaler] Ipratropium/Albuterol Sulfate 1 puff INHALATION RT-QID 06/22/18 06/22/24 History [Combivent Respimat Inhaler] Metoprolol Tartrate [Lopressor] 25 mg PO BID 06/22/18 06/22/24 History Clopidogrel Bisulfate [Plavix] 75 mg PO DAILY 07/01/18 06/22/24 History Albuterol Inhaler [Ventolin Hfa 2 puff INHALATION RT-TID PRN 12/07/19 06/22/24 History Inhaler] Albuterol Nebulized [Ventolin 2.5 mg INHALATION RT-QID 12/07/19 06/22/24 History Nebulized] Loratadine [Claritin] 10 mg PO DAILY 12/07/19 06/22/24 History Simvastatin [Zocor] 40 mg PO HS 12/07/19 06/22/24 History Tiotropium 18 Mcg/Puff [Spiriva] 2 puff INHALATION RT-DAILY 12/07/19 06/22/24 History Cholecalciferol [Vitamin D3 (25 25 mcg PO BID 03/17/24 06/22/24 History Mcg = 1000 Iu)] Ferrous Sulfate [Iron (65 MG 325 mg PO W/LUNCH 04/06/24 06/22/24 History Elemental)] Folic Acid 1 mg PO DAILY 04/06/24 06/22/24 History Vitamin B-12 50mcg 50 mcg PO DAILY 04/06/24 06/22/24 History Furosemide [Lasix] 20 mg PO DAILY 04/16/24 06/22/24 History Azithromycin [Zithromax] 500 mg PO MOWEFR 06/09/24 06/22/24 History Gabapentin [Neurontin] 200 mg PO TID #90 cap 06/11/24 06/22/24 Rx Montelukast [Singulair] 10 mg PO HS #30 tab 06/16/24 06/22/24 Rx Pantoprazole [Protonix] 40 mg PO AC-BRKFST #30 tab 06/16/24 06/22/24 Rx predniSONE See Taper PO DIRECTED #30 tab 06/16/24 06/22/24 Rx Allergies Allergy/AdvReac Type Severity Reaction Status Date / Time fluticasone AdvReac Nausea Verified 06/22/24 17:52 [From Wixela Inhub] levofloxacin [From Levaquin] AdvReac TENDON PAIN Verified 06/22/24 17:52 salmeterol AdvReac Nausea Verified 06/22/24 17:52 [From Wixela Inhub] Physical Exam Vitals: Vital Signs Temp Pulse Resp BP Pulse Ox 06/22/24 17:51 105 H 06/22/24 17:36 101 H 06/22/24 17:07 97.7 F 108 H 20 120/72 100 06/22/24 17:04 20 06/22/24 16:47 97.4 F L 105 H 24 105/69 100 Intake and Output 06/22/24 06/22/24 06/22/24 06:59 14:59 22:59 Other: Weight 116.573 kg Results CBC & Chem 7: 06/22/24 17:32 06/22/24 17:32 Labs: Abnormal Lab Results - Last 24 Hours (Table) 06/22/24 06/22/24 Range/Units 17:32 17:32 WBC 10.9 H (3.8-10.6) k/uL RBC 3.98 L (4.30-5.90) m/uL Hgb 11.1 L (13.0-17.5) gm/dL Hct 34.4 L (39.0-53.0) % RDW 16.0 H (11.5-15.5) % Neutrophils # 9.6 H (1.3-7.7) k/uL Lymphocytes # 0.7 L (1.0-4.8) k/uL Sodium 129 L (137-145) mmol/L Potassium 5.4 H (3.5-5.1) mmol/L Chloride 96 L (98-107) mmol/L Glucose 152 H (74-99) mg/dL Thrombosis Risk Factor Assmnt - Choose All That Apply Each Factor Represents 1 point: Abnormal pulmonary function (COPD), Obesity (BMI >25), Swollen legs (current) Each Risk Factor Represents 3 Points: Age 75 years or older Thrombosis Risk Factor Assessment Total Risk Factor Score: 6 Thrombosis Risk Factor Assessment Level: High Risk
[2024-06-23] MEDS: ACETAMINOPHEN TAB 325 MG TAB PO PRN (03:35)
--- NOTE | 2024-06-23 05:19 | P.CNPUL ---
History of Present Illness Consult date: 06/23/24 Requesting physician: Julian Roberts Reason for consult: COPD Chief complaint: Shortness of breath, wheezing, chest tightness History of present illness: Patient is a 78-year-old male with past medical history significant for very severe oxygen dependent COPD. He has had frequent hospitalizations for COPD, and was just recently discharged on 06/16/2024 for the same. In fact, the patient has had five hospitalizations so far this year, including multiple ER visits. His FEV1 is 29% of predicted. He is oxygen dependent at baseline. Utilizes a combination of albuterol nebs, Symbicort inhaler, and Spiriva. Also, has past medical history significant for hypertension, hyperlipidemia, coronary artery disease with previous PCI/stenting. Workup in the emergency department including a chest x-ray which shows chronic emphysematous changes and mild cardiomegaly without acute cardiopulmonary process. CBC: WBC count 10.9, hemoglobin 11.1, hematocrit 34.4, platelets 339. CMP: Sodium 129, potassium 5.4, chloride 96, serum bicarb 25, BUN 13, creatinine 0.72, glucose 152. Troponin 0.025. NT proBNP 941. EKG: Sinus tachycardia, rate 103 bpm, diffuse ST/T wave changes. Patient currently being evaluated in the emergency department. He is resting comfortably on 2 L/min nasal cannula. States his breathing has progressively worsened over the last week since his last hospital discharge. He did have a fall while at home, walking from the garage. Denies head trauma or losing consciousness. He does normally ambulate with a walker. Endorses his chronic cough with occasional white sputum production. No sputum purulence. No increase in coughing frequency. No fevers or chills. No notable sick contacts since being discharged from the hospital. Denies any chest pain, heart palpitations, lightheadedness or syncopal events. Does have some lower extremity swelling. Most recent vital signs: Temperature 97.5 F, heart rate 106 bpm, blood pressure 118/57 mmHg, nontachypneic, SpO2 98% on 2 L/min nasal cannula. Review of Systems Constitutional: Reports poor appetite. Denies chills, Denies fatigue, Denies fever, Denies weight loss or weight gain Ears, nose, mouth and throat: Denies nasal congestion, Denies nasal discharge, Denies post-nasal drip, Denies sinus pain, Denies sinus pressure, Denies sore throat Cardiovascular: Reports dyspnea on exertion, Reports leg edema, Denies chest pain, Denies orthopnea, Denies palpitations, Denies paroxysmal nocturnal dyspnea, Denies syncope Respiratory: Reports as per HPI Gastrointestinal: Reports loss of appetite, Denies abdominal pain, Denies constipation, Denies diarrhea, Denies nausea, Denies vomiting Genitourinary: Denies dysuria Musculoskeletal: Denies limitation of motion Integumentary: Denies rash Neurological: Denies seizures, Denies syncope Psychiatric: Denies anxiety, Denies depression Past Medical History Past Medical History: Coronary Artery Disease (CAD), COPD, GERD/Reflux, Hyperlipidemia, Hypertension, [place]ocardial Infarction ([place]), Pulmonary Embolus (PE), Renal Disease Additional Past Medical History / Comment(s): home O2 (3L [place] HS), bilateral PEs in 2003, history ETOH abuse - pt states he has never had withdrawal symptoms, chronic low back pain/sciatica/spurs/disc disease - much improved after back injections, past urinary retention, diverticulitis/benign colon polyps removed, nephrolithiasis - passed stones on his own, shingelles 16 years ago - R shoulder. Last Myocardial Infarction Date:: 2010 History of Any Multi-Drug Resistant Organisms: None Reported Past Surgical History: Heart Catheterization With Stent Additional Past Surgical History / Comment(s): back injections for pain, piece of metal removed from right eye, EGD, colonoscopy Past Anesthesia/Blood Transfusion Reactions: No Reported Reaction Additional Past Anesthesia/Blood Transfusion Reaction / Comment(s): claustrophobia Date of Last Stent Placement:: 2010 Past Psychological History: Anxiety, Depression, PTSD Smoking Status: Former smoker Past Alcohol Use History: None Reported Past Drug Use History: None Reported - Past Family History Mother Family Medical History: Cancer Additional Family Medical History / Comment(s): from breast cancer at age 53. Father Family Medical History: Coronary Artery Disease (CAD), Myocardial Infarction ([place]) Additional Family Medical History / Comment(s): 4 MIs/CABG. at age 72. Medications and Allergies Home Medications Medication Instructions Recorded Confirmed Type Aspirin EC [Ecotrin Low Dose] 81 mg PO DAILY 06/22/18 06/22/24 History Budesonide/Formoterol Fumarate 2 puff INHALATION RT-BID 06/22/18 06/22/24 History [Symbicort 160-4.5 Mcg Inhaler] Ipratropium/Albuterol Sulfate 1 puff INHALATION RT-QID 06/22/18 06/22/24 History [Combivent Respimat Inhaler] Metoprolol Tartrate [Lopressor] 25 mg PO BID 06/22/18 06/22/24 History Clopidogrel Bisulfate [Plavix] 75 mg PO DAILY 07/01/18 06/22/24 History Albuterol Inhaler [Ventolin Hfa 2 puff INHALATION RT-TID PRN 12/07/19 06/22/24 History Inhaler] Albuterol Nebulized [Ventolin 2.5 mg INHALATION RT-QID 12/07/19 06/22/24 History Nebulized] Loratadine [Claritin] 10 mg PO DAILY 12/07/19 06/22/24 History Simvastatin [Zocor] 40 mg PO HS 12/07/19 06/22/24 History Tiotropium 18 Mcg/Puff [Spiriva] 2 puff INHALATION RT-DAILY 12/07/19 06/22/24 History Cholecalciferol [Vitamin D3 (25 25 mcg PO BID 03/17/24 06/22/24 History Mcg = 1000 Iu)] Ferrous Sulfate [Iron (65 MG 325 mg PO W/LUNCH 04/06/24 06/22/24 History Elemental)] Folic Acid 1 mg PO DAILY 04/06/24 06/22/24 History Vitamin B-12 50mcg 50 mcg PO DAILY 04/06/24 06/22/24 History Furosemide [Lasix] 20 mg PO DAILY 04/16/24 06/22/24 History Azithromycin [Zithromax] 500 mg PO MOWEFR 06/09/24 06/22/24 History Gabapentin [Neurontin] 200 mg PO TID #90 cap 06/11/24 06/22/24 Rx Montelukast [Singulair] 10 mg PO HS #30 tab 06/16/24 06/22/24 Rx Pantoprazole [Protonix] 40 mg PO AC-BRKFST #30 tab 06/16/24 06/22/24 Rx predniSONE See Taper PO DIRECTED #30 tab 06/16/24 06/22/24 Rx Allergies Allergy/AdvReac Type Severity Reaction Status Date / Time fluticasone AdvReac Nausea Verified 06/22/24 17:52 [From [facility]] levofloxacin [From Levaquin] AdvReac TENDON PAIN Verified 06/22/24 17:52 salmeterol AdvReac Nausea Verified 06/22/24 17:52 [From [facility]] Physical Exam Vitals: Vital Signs Temp Pulse Pulse Resp BP BP Pulse Ox 06/23/24 02:40 106 H 22 118/57 98 06/22/24 20:21 97.5 F L 104 H 22 160/78 96 06/22/24 17:51 105 H 06/22/24 17:36 101 H 06/22/24 17:07 97.7 F 108 H 20 120/72 100 06/22/24 17:04 20 06/22/24 16:47 97.4 F L 105 H 24 105/69 100 Intake and Output 06/22/24 06/22/24 06/23/24 14:59 22:59 06:59 Output Total 600 Balance -600 Output: Urine 600 Other: # Voids 1 Weight 116.573 kg GENERAL EXAM: Patient found laying on his left side, nonlabored breathing, on 2 L/min nasal cannula. HEAD: Normocephalic and atraumatic EYES: Normal reaction of pupils, equal size. NOSE: Clear with pink turbinates. THROAT: No erythema or exudates. NECK: No masses, no JVD. CHEST: No chest wall deformity. LUNGS: Equal air entry with markedly diminished lung sounds bilaterally throughout with end expiratory wheezes. On 2 L/min nasal cannula. No conversational dyspnea or accessory muscle use. CVS: S1 and S2 normal with no audible murmur, regular rhythm. No extra heart sounds ABDOMEN: No hepatosplenomegaly, active bowel sounds, no guarding or rigidity. SPINE: No scoliosis or deformity SKIN: No rashes CENTRAL NERVOUS SYSTEM: No focal deficits, tone is normal in all 4 extremities. EXTREMITIES: Bipedal edema. No clubbing or cyanosis. Peripheral pulses are intact. Results - Laboratory Findings CBC and BMP: 06/22/24 17:32 06/22/24 17:32 Abnormal lab findings: Abnormal Labs 06/22/24 06/22/24 17:32 17:32 WBC 10.9 H RBC 3.98 L Hgb 11.1 L Hct 34.4 L RDW 16.0 H Neutrophils # 9.6 H Lymphocytes # 0.7 L Sodium 129 L Potassium 5.4 H Chloride 96 L Glucose 152 H - Diagnostic Findings Chest x-ray: image reviewed Assessment and Plan Assessment: Acute COPD exacerbation Acute on chronic dyspnea, secondary to above Sputum culture positive for Stenotrophomonas maltophilia and 05/19/2024 Very severe chronic obstructive pulmonary disease, with an FEV1 29% of predicted, normally maintained on a combination of Symbicort, Spiriva, albuterol nebs [id number] Chronic hypoxemic respiratory failure, secondary to above, normally oxygen dependent on 2-3 L/min nasal cannula mostly at bedtime Normocytic, normochromic anemia, hemoglobin stable Recent mechanical fall Hyponatremia Former tobacco dependence Obesity, with a BMI of 41.5 kg/m History of hyperlipidemia History of hypertension History of CAD History of peripheral arterial disease Bilateral lower extremity edema Plan: Continue supplemental oxygen maintain oxygen saturation of 90% or greater Chest x-ray does not show any obvious focal infiltrates or evidence pneumonia Check viral 4 Plex Continue combination of bronchodilators [id number], IV Solu-Medrol, IV Solu-Medrol Previously started on azithromycin in ED Restarted on Lasix 20 mg daily DVT prophylaxis: Lovenox GI prophylaxis: Protonix We will continue to follow I have personally seen and examined the patient, performed the documentation and the assessment and plan as written. Number of minutes spent on the visit:20 Time with Patient: Greater than 30
[2024-06-23 06:22] LABS: Glucose,Whole Blood 180 mg/dL (70-110)
[2024-06-23] MEDS: PANTOPRAZOLE 40 MG TABLET PO SCH (06:31)
[2024-06-23] MEDS: methylPREDNISolone SOD SUCCI 125 MG/2 ML VIAL IV SCH (06:31)
[2024-06-23] MEDS: INSULIN LISPRO (HumaLOG) 100 UNIT/ML 10 mL VL SQ SCH (06:34)
[2024-06-23] MEDS: SYMBICORT 160-4.5 MCG INHALER INHALATION SCH (07:33)
[2024-06-23] MEDS ORDERED: NON FORMULARY DRUG (Tiotropium 18 Mcg/Puff 1 PUFF Inhaler) INHALATION SCH (08:00)
[2024-06-23] MEDS: GABAPENTIN 100 MG CAP PO SCH (08:36)
[2024-06-23] MEDS: METOPROLOL SUCCINATE (ER) 25 MG TAB.ER.24H PO SCH (08:36)
[2024-06-23] MEDS: FUROSEMIDE 20 MG TAB PO SCH (08:36)
[2024-06-23] MEDS: CLOPIDOGREL 75 MG TAB PO SCH (08:36)
[2024-06-23] MEDS: ASPIRIN 81 MG PO SCH (08:36)
[2024-06-23] MEDS: LORATADINE 10 MG TAB PO SCH (08:36)
[2024-06-23] MEDS: FOLIC ACID 1 MG TAB PO SCH (08:39)
[2024-06-23] MEDS: DAPAGLIFLOZIN PROPANEDIOL 10 MG TABLET PO SCH (08:39)
[2024-06-23] MEDS: ENOXAPARIN 40 MG/0.4 ML SYRINGE SQ SCH (08:39)
[2024-06-23 08:40] LABS: Basophils % (A) 0 %; Eosinophils % (A) 0 %; HCT 37.3 % (39.0-53.0); HGB 11.7 gm/dL (13.0-17.5); Hypochromasia Slight; Lymphocytes # (A) 0.7 k/uL (1.0-4.8); Lymphocytes % (A) 6 %; MCH 27.8 pg (25.0-35.0); MCHC 31.3 g/dL (31.0-37.0); MCV 88.7 fL (80.0-100.0); Mean Platelet Volume 7.1; Monocytes # (A) 0.5 k/uL (0-1.0); Monocytes % (A) 4 %; Neutrophils # (A) 11.3 k/uL (1.3-7.7); Neutrophils % (A) 90 %; Platelet Count 350 k/uL (150-450); RDW 15.9 % (11.5-15.5); WBC 12.5 k/uL (3.8-10.6)
[2024-06-23] MEDS: SPIRONOLACTONE 25 MG TAB PO SCH (08:40)
[2024-06-23] MEDS: SACUBITRIL/VALSARTAN 24 MG-26 MG TABLET PO SCH (08:40)
[2024-06-23 08:54] LABS: African American GFR (CKD) >90 (>60 ml/min/1.73 sqM); Anion Gap 8 mmol/L; Blood Urea Nitrogen 11 mg/dL (9-20); Calcium 9.3 mg/dL (8.4-10.2); Carbon Dioxide 29 mmol/L (22-30); Chloride 94 mmol/L (98-107); Glucose 159 mg/dL (74-99); Non-African American GFR(CKD) 90 (>60 ml/min/1.73 sqM); Potassium 4.8 mmol/L (3.5-5.1); Sodium 131 mmol/L (137-145)
[2024-06-23] MEDS ORDERED: methylPREDNISolone SOD SUCCI 125 MG/2 ML VIAL IV SCH (09:00)
[2024-06-23] MEDS ORDERED: METOPROLOL TARTRATE 25 MG TAB PO SCH (09:00)
[2024-06-23] MEDS: FERROUS SULFATE 325 MG TAB PO SCH (11:49)
--- NOTE | 2024-06-23 16:06 | P.PN ---
Subjective Progress Note Date: 06/23/24 Hospital Course: Patient is a 78-year-old male with past medical history significant for very severe COPD on 3 L at night, HFpEF, CAD with multiple stents, hypertension, non insulin-dependent diabetes mellitus, history of PE, hyperlipidemia presenting with shortness of breath. Today he was vacuuming at home without oxygen when he had increased work of breathing. He attempted nebulizer breathing treatment without relief so he called EMS. He was discharged on 06/16/2024 for the same symptoms. He utilizes albuterol nebulizers, Symbicort, Spiriva but states that they are not working well enough. He denies worsened cough or increased sputum production. He drinks 40-80oz fluid per day, mostly water. He states compliance with all of his medications. He reports lower extremity edema and dyspnea. His denies changes in appetite, fever/chills, nausea/vomiting, chest pain, abdominal pain. Initial vitals: BP 105/69, [place] 105 bpm, RR 24, 97.4 F, 100% on 3 L nasal cannula Initial labs: WBC 10.9, hemoglobin 11.1, platelets 339, sodium 129, potassium 5.4hemolyzed, chloride 96, BUN 13, creatinine 0.72, glucose 152, troponin x 1: 0.025, BNP 941 Initial EKG: Sinus tachycardia with ventricular rate 103 bpm, no ST segment changes, QTc 407 ms Initial chest x-ray: Chronic emphysematous change and mild cardiomegaly without acute pulmonary process 06/23/2024 Patient seen and examined at bedside. No acute events overnight. No new complaints. Labs show WBC 12.5, hemoglobin 11.7, MCV 88.7, platelet count 350,000, sodium 131, potassium 4.8, chloride 94, bicarb 29, BUN 11, creatinine 0.74, glucose 159, calcium 9.3, serum osmolality 284 Review of systems: Pertinent positives and negatives as discussed in HPI, a complete review of systems was performed and all other systems are negative. Pertinent imaging and labs reviewed. Physical Exam: Vital signs reviewed General: Nontoxic, no distress, appears stated age, on nasal cannula Derm: Warm, dry, intact, no cyanosis Head: Atraumatic, normocephalic, symmetric Eyes: EOMI, anicteric sclera, PERRL Ears: Normal appearing, no external lesions, hearing intact Nose: Normal appearing, no external lesions Mouth: No lip lesion, mucus membranes moist, no tonsilar hypertrophy or exudate Neck: Supple, without lesions, trachea midline Cardiovascular: S1-S2 regular, no murmur, 2+ bilateral lower extremities pitting edema to the distal thigh Lungs: Bibasilar expiratory wheezes, no rhonchi, no rales, no accessory muscle use Abdominal: Soft, non-tender to palpation, bowel sounds present, obese Extremities: Muscle strength 5/5 in all extremities, radial pulses 2+ bilateral Neuro: Alert, oriented x 4, gross neurological examination did not reveal any focal deficits. Cranial nerves II to XII grossly intact. Psych: Appropriate affect and mood Assessment and Plan: Patient is a 78-year-old male with past medical history significant for very severe COPD on 3 L mostly at night, HFpEF, CAD with multiple stents, hypertension, none insulin-dependent diabetes mellitus, history of PE, hyperlipidemia admitted for COPD exacerbation. Active #. Acute COPD exacerbation, type 3 #. Chronic hypoxic respiratory failure -Chest x-ray: Chronic emphysematous change and mild cardiomegaly without acute pulmonary process -3 L oxygen at home, currently at baseline -Continue DuoNeb every 4 hours and as needed -Continue Symbicort twice daily -Continue Solu-Medrol 60 mg IV every 12 hours -Pulmonary consulted #. Type II diabetes mellitus, uncontrolled #. Hyperglycemia #. Neuropathy -A1c 06/10/2024 was 7.1 -Glucose 152 -Accu-Cheks ACHS -Insulin sliding scale -Monitor for hypoglycemia -Continue gabapentin 200 mg 3 times daily -Consult social work for outpatient diabetic supplies/support as patient states he has not received any counseling #. Hypervolemic hyponatremia -Sodium 129, chloride 96 -Fluid restriction of 1500cc per day -Monitor BMP -Serum Osm 284 -Pending urine Osm and urine Na #. Multiple recent admissions for COPD -Obtain social work consult as patient may need more help at home -May benefit from palliative care consult in setting of end-stage COPD, discussed at length with patient about palliative care, patient will talk to his primary care with regards to that service. Chronic #. HFpEF, not in acute exacerbation #. Hyperlipidemia #. CAD #. Hypertension #. History of PE not on anticoagulation #. Normocytic anemia -Continue home folic acid, ferrous sulfate Neurontin, Plavix, montelukast, Lasix 20 mg, Neurontin, aspirin, Lipitor, and Symbicort inhaler -Initiated Aldactone 25 mg p.o. daily, metoprolol succinate 25 mg p.o. daily, Farxiga 10 mg p.o. daily DVT prophylaxis: Lovenox 40 mg subcutaneous daily GI prophylaxis: Protonix 40 mg p.o.daily Gloria Thapa MD PGY-1/[employer] Met[employer] Dictation was produced using [employer] dictation software. please excuse any grammatical, word or spelling errors. I have seen and evaluated the patient today. Discussed with the resident and agree with the residents finding and plan as documented in the resident's note. Changes highlighted in blue font. Objective - Vital Signs Vital signs: Vital Signs Temp 97.5 F L 06/22/24 20:21 Pulse 106 H 06/23/24 02:40 Resp 22 06/23/24 02:40 BP 118/57 06/23/24 02:40 Pulse Ox 98 06/23/24 02:40 FiO2 Intake & Output 06/22/24 06/22/24 06/23/24 06:59 18:59 06:59 Output Total 600 Balance -600 Weight 116.573 kg Output: Urine 600 Other: # Voids 1 - Labs CBC & Chem 7: 06/23/24 08:09 06/23/24 08:09 Labs: Abnormal Lab Results - Last 24 Hours (Table) 06/22/24 06/22/24 06/23/24 Range/Units 17:32 17:32 06:21 WBC 10.9 H (3.8-10.6) k/uL RBC 3.98 L (4.30-5.90) m/uL Hgb 11.1 L (13.0-17.5) gm/dL Hct 34.4 L (39.0-53.0) % RDW 16.0 H (11.5-15.5) % Neutrophils # 9.6 H (1.3-7.7) k/uL Lymphocytes # 0.7 L (1.0-4.8) k/uL Sodium 129 L (137-145) mmol/L Potassium 5.4 H (3.5-5.1) mmol/L Chloride 96 L (98-107) mmol/L Glucose 152 H (74-99) mg/dL POC Glucose (mg/dL) 180 H (70-110) mg/dL
[2024-06-23 17:02] LABS: Glucose,Whole Blood 194 mg/dL (70-110)
[2024-06-23] MEDS: ATORVASTATIN 20 MG TAB PO SCH (20:36)
[2024-06-23] MEDS: MONTELUKAST 10 MG TAB PO SCH (20:36)
[2024-06-24 06:24] LABS: Glucose,Whole Blood 165 mg/dL (70-110)
[2024-06-24 08:02] VITALS: RESP 18
[2024-06-24 08:42] LABS: Basophils % (A) 0 %; Eosinophils % (A) 0 %; HCT 37.6 % (39.0-53.0); HGB 11.6 gm/dL (13.0-17.5); Hypochromasia Slight; Lymphocytes # (A) 0.5 k/uL (1.0-4.8); Lymphocytes % (A) 4 %; MCH 27.3 pg (25.0-35.0); MCHC 30.8 g/dL (31.0-37.0); MCV 88.8 fL (80.0-100.0); Mean Platelet Volume 7.2; Monocytes # (A) 0.5 k/uL (0-1.0); Monocytes % (A) 4 %; Neutrophils # (A) 12.7 k/uL (1.3-7.7); Neutrophils % (A) 92 %; Platelet Count 337 k/uL (150-450); RBC 4.23 m/uL (4.30-5.90); RDW 15.7 % (11.5-15.5); WBC 13.8 k/uL (3.8-10.6)
[2024-06-24 08:47] VITALS: BP 119/72; PULSE 89; TEMP 97.8
[2024-06-24 09:04] LABS: African American GFR (CKD) >90 (>60 ml/min/1.73 sqM); Anion Gap 5 mmol/L; Blood Urea Nitrogen 15 mg/dL (9-20); Calcium 9.2 mg/dL (8.4-10.2); Carbon Dioxide 34 mmol/L (22-30); Chloride 92 mmol/L (98-107); Glucose 178 mg/dL (74-99); Non-African American GFR(CKD) 87 (>60 ml/min/1.73 sqM); Potassium 4.8 mmol/L (3.5-5.1); Sodium 131 mmol/L (137-145)
[2024-06-24 11:31] LABS: Glucose,Whole Blood 175 mg/dL (70-110)
--- NOTE | 2024-06-24 12:18 | P.DS ---
Providers Date of admission: 06/22/24 19:55 Expected date of discharge: 06/24/24 Attending physician: Caesar Linares MD Consults: 06/22/24 19:53 Consult Physician Routine Consulting Provider: Manoj Alberto Consult Reason/Comments: copd exacerbation Do you want consulting provider notified?: Yes Primary care physician: [facility] Course: Hospital Course: Patient is a 78-year-old male with past medical history significant for very severe COPD on 3 L at night, HFpEF, CAD with multiple stents, hypertension, non insulin-dependent diabetes mellitus, history of PE, hyperlipidemia presenting with shortness of breath. Today he was vacuuming at home without oxygen when he had increased work of breathing. He attempted nebulizer breathing treatment without relief so he called EMS. He was discharged on 06/16/2024 for the same symptoms. He utilizes albuterol nebulizers, Symbicort, Spiriva but states that they are not working well enough. He denies worsened cough or increased sputum production. He drinks 40-80oz fluid per day, mostly water. He states compliance with all of his medications. He reports lower extremity edema and dyspnea. His denies changes in appetite, fever/chills, nausea/vomiting, chest pain, abdominal pain. Initial vitals: BP 105/69, [place] 105 bpm, RR 24, 97.4 F, 100% on 3 L nasal cannula Initial labs: WBC 10.9, hemoglobin 11.1, platelets 339, sodium 129, potassium 5.4hemolyzed, chloride 96, BUN 13, creatinine 0.72, glucose 152, troponin x 1: 0.025, BNP 941 Initial EKG: Sinus tachycardia with ventricular rate 103 bpm, no ST segment changes, QTc 407 ms Initial chest x-ray: Chronic emphysematous change and mild cardiomegaly without acute pulmonary process Patient is admitted for acute COPD exacerbation with chronic hypoxic respiratory failure. Ordered Solu-Medrol IV, DuoNebs [id number] and every 4 hours, Symbicort, supportive oxygen as needed. Pulmonology consulted. Patient symptoms improved throughout patient's stay. No complications occurred throughout patient's hospital stay. Patient cleared for discharge today and advised to continue home medications, and newly prescribed Aldactone p.o. and prednisone p.o. Patient advised to follow-up with PCP on outpatient basis to discuss palliative options as patient has had multiple recent admissions for COPD exacerbation Final Diagnosis: #. Acute COPD exacerbation, type 3 #. Chronic hypoxic respiratory failure #. Type II diabetes mellitus #. Hypervolemic hyponatremia #. HFpEF, not in acute exacerbation #. Hyperlipidemia #. CAD #. Hypertension #. History of PE not on anticoagulation #. Normocytic anemia Physical examination: General: Nontoxic, no distress, appears stated age, on nasal cannula Derm: Warm, dry, intact, no cyanosis Head: Atraumatic, normocephalic, symmetric Eyes: EOMI, anicteric sclera, PERRL Ears: Normal appearing, no external lesions, hearing intact Nose: Normal appearing, no external lesions Mouth: No lip lesion, mucus membranes moist, no tonsilar hypertrophy or exudate Neck: Supple, without lesions, trachea midline Cardiovascular: S1-S2 regular, no murmur, 1+ bilateral lower extremities pitting edema to midcalf Lungs: Bibasilar expiratory wheezes, no rhonchi, no rales, no accessory muscle use Abdominal: Soft, non-tender to palpation, bowel sounds present, obese Extremities: Muscle strength 5/5 in all extremities, radial pulses 2+ bilateral Neuro: Alert, oriented x 4, gross neurological examination did not reveal any focal deficits. Cranial nerves II to XII grossly intact. Psych: Appropriate affect and mood A total of 36 minutes of time were spent preparing this complex discharge summary. Patient was discharged on 06/24/2024 at 829. I have seen and evaluated the patient today. Discussed with the resident and agree with the residents finding and plan as documented in the resident's note. Changes highlighted in blue font. Patient Condition at Discharge: Fair Plan - Discharge Summary Discharge Rx Participant: No New Discharge Prescriptions: New Spironolactone [Aldactone] 25 mg PO DAILY #90 tab predniSONE 50 mg PO DAILY #4 tab Continue Aspirin EC [Ecotrin Low Dose] 81 mg PO DAILY Budesonide/Formoterol Fumarate [Symbicort 160-4.5 Mcg Inhaler] 2 puff INHALATION RT-BID Ipratropium/Albuterol Sulfate [Combivent Respimat Inhaler] 1 puff INHALATION RT-QID Metoprolol Tartrate [Lopressor] 25 mg PO BID Clopidogrel Bisulfate [Plavix] 75 mg PO DAILY Tiotropium 18 Mcg/Puff [Spiriva] 2 puff INHALATION RT-DAILY Simvastatin [Zocor] 40 mg PO HS Albuterol Nebulized [Ventolin Nebulized] 2.5 mg INHALATION RT-QID Loratadine [Claritin] 10 mg PO DAILY Albuterol Inhaler [Ventolin Hfa Inhaler] 2 puff INHALATION RT-TID PRN PRN Reason: Shortness Of Breath Cholecalciferol [Vitamin D3 (25 Mcg = 1000 Iu)] 25 mcg PO BID Furosemide [Lasix] 20 mg PO DAILY Azithromycin [Zithromax] 500 mg PO MOWEFR Gabapentin [Neurontin] 200 mg PO TID #90 cap Ferrous Sulfate [Iron (65 MG Elemental)] 325 mg PO W/LUNCH Folic Acid 1 mg PO DAILY Vitamin B-12 50mcg 50 mcg PO DAILY Pantoprazole [Protonix] 40 mg PO AC-BRKFST #30 tab Montelukast [Singulair] 10 mg PO HS #30 tab Discontinued predniSONE See Taper PO DIRECTED #30 tab Discharge Medication List Aspirin EC [Ecotrin Low Dose] 81 mg PO DAILY 06/22/18 [History] Budesonide/Formoterol Fumarate [Symbicort 160-4.5 Mcg Inhaler] 2 puff INHALATION RT-BID 06/22/18 [History] Ipratropium/Albuterol Sulfate [Combivent Respimat Inhaler] 1 puff INHALATION RT- QID 06/22/18 [History] Metoprolol Tartrate [Lopressor] 25 mg PO BID 06/22/18 [History] Clopidogrel Bisulfate [Plavix] 75 mg PO DAILY 07/01/18 [History] Albuterol Inhaler [Ventolin Hfa Inhaler] 2 puff INHALATION RT-TID PRN 12/07/19 [History] Albuterol Nebulized [Ventolin Nebulized] 2.5 mg INHALATION RT-QID 12/07/19 [History] Loratadine [Claritin] 10 mg PO DAILY 12/07/19 [History] Simvastatin [Zocor] 40 mg PO HS 12/07/19 [History] Tiotropium 18 Mcg/Puff [Spiriva] 2 puff INHALATION RT-DAILY 12/07/19 [History] Cholecalciferol [Vitamin D3 (25 Mcg = 1000 Iu)] 25 mcg PO BID 03/17/24 [History] Ferrous Sulfate [Iron (65 MG Elemental)] 325 mg PO W/LUNCH 04/06/24 [History] Folic Acid 1 mg PO DAILY 04/06/24 [History] Vitamin B-12 50mcg 50 mcg PO DAILY 04/06/24 [History] Furosemide [Lasix] 20 mg PO DAILY 04/16/24 [History] Azithromycin [Zithromax] 500 mg PO MOWEFR 06/09/24 [History] Gabapentin [Neurontin] 200 mg PO TID #90 cap 06/11/24 [Rx] Montelukast [Singulair] 10 mg PO HS #30 tab 06/16/24 [Rx] Pantoprazole [Protonix] 40 mg PO AC-BRKFST #30 tab 06/16/24 [Rx] Spironolactone [Aldactone] 25 mg PO DAILY #90 tab 06/24/24 [Rx] predniSONE 50 mg PO DAILY #4 tab 06/24/24 [Rx] Follow up Appointment(s)/Referral(s): [facility],Clinic [REFERRING] - 06/30/24 1:00 pm Patient Instructions/Handouts: COPD (Chronic Obstructive Pulmonary Disease) (DC), Palliative Care (DC) Activity/Diet/Wound Care/Special Instructions: [facility] to follow [facility]. Please see PCP and also set up palliative care through PCP. Discharge Disposition: HOME SELF-CARE
--- NOTE | 2024-06-24 15:12 | P.PN ---
Subjective Progress Note Date: 06/24/24 Principal diagnosis: Acute exacerbation of COPD Patient is a 78-year-old male with past medical history significant for very severe oxygen dependent COPD. He has had frequent hospitalizations for COPD, and was just recently discharged on 06/16/2024 for the same. In fact, the patient has had five hospitalizations so far this year, including multiple ER visits. His FEV1 is 29% of predicted. He is oxygen dependent at baseline. Utilizes a combination of albuterol nebs, Symbicort inhaler, and Spiriva. Also, has past medical history significant for hypertension, hyperlipidemia, coronary artery disease with previous PCI/stenting. Workup in the emergency department including a chest x-ray which shows chronic emphysematous changes and mild cardiomegaly without acute cardiopulmonary process. CBC: WBC count 10.9, hemoglobin 11.1, hematocrit 34.4, platelets 339. CMP: Sodium 129, potassium 5.4, chloride 96, serum bicarb 25, BUN 13, creatinine 0.72, glucose 152. Troponin 0.025. NT proBNP 941. EKG: Sinus tachycardia, rate 103 bpm, diffuse ST/T wave changes. Patient currently being evaluated in the emergency department. He is resting comfortably on 2 L/min nasal cannula. States his breathing has progressively worsened over the last week since his last hospital discharge. He did have a fall while at home, walking from the garage. Denies head trauma or losing consciousness. He does normally ambulate with a walker. Endorses his chronic cough with occasional white sputum production. No sputum purulence. No increase in coughing frequency. No fevers or chills. No notable sick contacts since being discharged from the hospital. Denies any chest pain, heart palpitations, lightheadedness or syncopal events. Does have some lower extremity swelling. Most recent vital signs: Temperature 97.5 F, heart rate 106 bpm, blood pressure 118/57 mmHg, nontachypneic, SpO2 98% on 2 L/min nasal cannula. Seen today on 06/24/2024, patient is doing well, continues to do better compared to yesterday, as [id number] I cleared the patient for discharge when I saw him yesterday on consultation. Patient has no complaints today, and I will clear him for discharge. No cough no wheezing no shortness of breath no chest pain, patient is on appropriate medications for his underlying COPD. Objective - Vital Signs Vital signs: Vital Signs Temp 97.8 F 06/24/24 07:25 Pulse 89 06/24/24 07:40 Resp 18 06/24/24 07:55 BP 119/72 06/24/24 07:25 Pulse Ox 95 06/24/24 07:55 FiO2 Intake & Output 06/23/24 06/24/24 06/24/24 18:59 06:59 18:59 Intake Total 1182 0 Balance 1182 0 Weight 116.573 kg Intake: Oral 1182 0 Other: # Voids 0 2 - Exam GENERAL EXAM: Revealed a 78-year-old white male in no distress HEAD: Normocephalic and atraumatic EYES: Normal reaction of pupils, equal size. NOSE: Clear with pink turbinates. THROAT: No erythema or exudates. NECK: No masses, no JVD. CHEST: No chest wall deformity. LUNGS: Equal air entry with markedly diminished lung sounds bilaterally throughout CVS: S1 and S2 normal with no audible murmur, regular rhythm. No extra heart sounds ABDOMEN: No hepatosplenomegaly, active bowel sounds, no guarding or rigidity. SKIN: No rashes CENTRAL NERVOUS SYSTEM: Alert and oriented x 3 no gross focal deficit EXTREMITIES: Trace of bipedal edema no clubbing or cyanosis - Labs CBC & Chem 7: 06/24/24 08:17 06/24/24 08:17 Labs: Abnormal Lab Results - Last 24 Hours (Table) 06/23/24 06/23/24 06/23/24 Range/Units 08:38 08:38 17:00 WBC (3.8-10.6) k/uL RBC (4.30-5.90) m/uL Hgb (13.0-17.5) gm/dL Hct (39.0-53.0) % MCHC (31.0-37.0) g/dL RDW (11.5-15.5) % Neutrophils # (1.3-7.7) k/uL Lymphocytes # (1.0-4.8) k/uL Sodium (137-145) mmol/L Chloride (98-107) mmol/L Carbon Dioxide (22-30) mmol/L Glucose (74-99) mg/dL POC Glucose (mg/dL) 194 H (70-110) mg/dL Urine Osmolality 168 L (400-1100) mOsm/kg Ur Random Sodium 32 L (40-220) mmol/L 06/24/24 06/24/24 06/24/24 Range/Units 06:23 08:17 08:17 WBC 13.8 H (3.8-10.6) k/uL RBC 4.23 L (4.30-5.90) m/uL Hgb 11.6 L (13.0-17.5) gm/dL Hct 37.6 L (39.0-53.0) % MCHC 30.8 L (31.0-37.0) g/dL RDW 15.7 H (11.5-15.5) % Neutrophils # 12.7 H (1.3-7.7) k/uL Lymphocytes # 0.5 L (1.0-4.8) k/uL Sodium 131 L (137-145) mmol/L Chloride 92 L (98-107) mmol/L Carbon Dioxide 34 H (22-30) mmol/L Glucose 178 H (74-99) mg/dL POC Glucose (mg/dL) 165 H (70-110) mg/dL Urine Osmolality (400-1100) mOsm/kg Ur Random Sodium (40-220) mmol/L 06/24/24 Range/Units 11:30 WBC (3.8-10.6) k/uL RBC (4.30-5.90) m/uL Hgb (13.0-17.5) gm/dL Hct (39.0-53.0) % MCHC (31.0-37.0) g/dL RDW (11.5-15.5) % Neutrophils # (1.3-7.7) k/uL Lymphocytes # (1.0-4.8) k/uL Sodium (137-145) mmol/L Chloride (98-107) mmol/L Carbon Dioxide (22-30) mmol/L Glucose (74-99) mg/dL POC Glucose (mg/dL) 175 H (70-110) mg/dL Urine Osmolality (400-1100) mOsm/kg Ur Random Sodium (40-220) mmol/L Assessment and Plan Assessment: Impression: Acute COPD exacerbation Acute on chronic dyspnea, secondary to above Sputum culture positive for Stenotrophomonas maltophilia and 05/19/2024 Very severe chronic obstructive pulmonary disease, with an FEV1 29% of predicted, normally maintained on a combination of Symbicort, Spiriva, albuterol nebs [id number] Chronic hypoxemic respiratory failure, secondary to above, normally oxygen dependent on 2-3 L/min nasal cannula mostly at bedtime Normocytic, normochromic anemia, hemoglobin stable Recent mechanical fall Hyponatremia Former tobacco dependence Obesity, with a BMI of 41.5 kg/m History of hyperlipidemia History of hypertension History of CAD History of peripheral arterial disease Bilateral lower extremity edema Recommendation: Continue present bronchodilators, Patient to continue his oxygen at home Patient to resume home meds Prednisone to be tapered over 2 weeks from 40 mg down until he is off prednisone. Patient to follow-up on outpatient basis with Dr. Goddard. Time with Patient: Less than 30
== END 2024-06-24 12:14 | disposition home health service (06) | DRG 191 ==
LOC: EC 16:42 → 4SSUR 19:55
PROVIDERS: ADMIT Internal Medicine; ATTEND Internal Medicine
DX: J44.1 Chronic obstructive pulmonary disease with (acute) exacerbation (principal); E87.1 Hypo-osmolality and hyponatremia; I50.32 Chronic diastolic (congestive) heart failure; J96.11 Chronic respiratory failure with hypoxia; I11.0 Hypertensive heart disease with heart failure; E11.40 Type 2 diabetes mellitus with diabetic neuropathy, unspecified; D64.9 Anemia, unspecified; E11.51 Type 2 diabetes mellitus with diabetic peripheral angiopathy without gangrene; Z68.41 Body mass index [BMI] 40.0-44.9, adult; F32.A Depression, unspecified; F10.11 Alcohol abuse, in remission; E11.65 Type 2 diabetes mellitus with hyperglycemia; E66.9 Obesity, unspecified; E78.5 Hyperlipidemia, unspecified; I25.10 Atherosclerotic heart disease of native coronary artery without angina pectoris; F43.10 Post-traumatic stress disorder, unspecified; I25.2 Old myocardial infarction; K21.9 Gastro-esophageal reflux disease without esophagitis; F40.240 Claustrophobia; Z99.81 Dependence on supplemental oxygen; Z79.82 Long term (current) use of aspirin; Z79.51 Long term (current) use of inhaled steroids; Z79.02 Long term (current) use of antithrombotics/antiplatelets; Z79.899 Other long term (current) drug therapy; Z87.891 Personal history of nicotine dependence; Z95.5 Presence of coronary angioplasty implant and graft; Z86.711 Personal history of pulmonary embolism; Z88.1 Allergy status to other antibiotic agents; Z88.8 Allergy status to other drugs, medicaments and biological substances; W19.XXXA Unspecified fall, initial encounter; Y92.009 Unspecified place in unspecified non-institutional (private) residence as the place of occurrence of the external cause
CPT/HCPCS: 36415; 71046; 80048; 83880; 83930; 83935; 84300; 84484; 85025; 93005; 94640; 96374; 96375; 99285

== ENCOUNTER 2024-06-27 15:31 | Observation (INO) | payer OTHER, MEDICARE ==
--- NOTE | 2024-06-27 15:51 | ED ---
SOB HPI - General Source: patient <Brook Barth - Last Filed: 06/27/24 15:49> <Sarbjit Roberts - Last Filed: 06/27/24 18:52> - General Stated Complaint: DAVID Time Seen by Provider: 06/27/24 15:49 - History of Present Illness Initial Comments: 78-year-old male with history of COPD presenting for shortness of breath. He was recently admitted to the hospital for COPD exacerbation however he reports he has been having difficulty breathing since discharge. He is on 3 L of oxygen at home however reports he feels as though this is not enough. (Brook Barth) This is a 78-year-old male who presents to the emergency department the past medical history significant for COPD. Patient states he has been admitted recently for COPD exacerbation. Patient states he got up this morning and had significant difficulty breathing and he went over to [facility] they eventually discharged Home and continued to get worse so he decided come to the emergency department here. Patient denies any fever chills. Patient states he does have a slight cough. Patient denies any chest pain or palpitations. Patient denies any abdominal pain patient has nausea vomiting diarrhea. Patient states he is on 3 L of oxygen normally. (Sarbjit Roberts) - Related Data Home Medications Medication Instructions Recorded Confirmed Aspirin EC [Ecotrin Low Dose] 81 mg PO DAILY 06/22/18 06/22/24 Budesonide/Formoterol Fumarate 2 puff INHALATION RT-BID 06/22/18 06/22/24 [Symbicort 160-4.5 Mcg Inhaler] Ipratropium/Albuterol Sulfate 1 puff INHALATION RT-QID 06/22/18 06/22/24 [Combivent Respimat Inhaler] Metoprolol Tartrate [Lopressor] 25 mg PO BID 06/22/18 06/22/24 Clopidogrel Bisulfate [Plavix] 75 mg PO DAILY 07/01/18 06/22/24 Albuterol Inhaler [Ventolin Hfa 2 puff INHALATION RT-TID PRN 12/07/19 06/22/24 Inhaler] Albuterol Nebulized [Ventolin 2.5 mg INHALATION RT-QID 12/07/19 06/22/24 Nebulized] Loratadine [Claritin] 10 mg PO DAILY 12/07/19 06/22/24 Simvastatin [Zocor] 40 mg PO HS 12/07/19 06/22/24 Tiotropium 18 Mcg/Puff [Spiriva] 2 puff INHALATION RT-DAILY 12/07/19 06/22/24 Cholecalciferol [Vitamin D3 (25 25 mcg PO BID 03/17/24 06/22/24 Mcg = 1000 Iu)] Ferrous Sulfate [Iron (65 MG 325 mg PO W/LUNCH 04/06/24 06/22/24 Elemental)] Folic Acid 1 mg PO DAILY 04/06/24 06/22/24 Vitamin B-12 50mcg 50 mcg PO DAILY 04/06/24 06/22/24 Furosemide [Lasix] 20 mg PO DAILY 04/16/24 06/22/24 Azithromycin [Zithromax] 500 mg PO MOWEFR 06/09/24 06/22/24 Previous Rx's Medication Instructions Recorded Gabapentin [Neurontin] 200 mg PO TID #90 cap 06/11/24 Montelukast [Singulair] 10 mg PO HS #30 tab 06/16/24 Pantoprazole [Protonix] 40 mg PO AC-BRKFST #30 tab 06/16/24 Spironolactone [Aldactone] 25 mg PO DAILY #90 tab 06/24/24 predniSONE 50 mg PO DAILY #4 tab 06/24/24 Allergies Allergy/AdvReac Type Severity Reaction Status Date / Time fluticasone AdvReac Nausea Verified 06/27/24 16:37 [From [facility]] levofloxacin [From Levaquin] AdvReac TENDON PAIN Verified 06/27/24 16:37 salmeterol AdvReac Nausea Verified 06/27/24 16:37 [From [facility] In[facility]] Review of Systems ROS Other: All systems not noted in ROS Statement are negative. <Brook Barth - Last Filed: 06/27/24 15:49> ROS Other: All systems not noted in ROS Statement are negative. <Sarbjit Roberts - Last Filed: 06/27/24 18:52> ROS Statement: Those systems with pertinent positive or pertinent negative responses have been documented in the HPI. Past Medical History Past Medical History: Coronary Artery Disease (CAD), COPD, GERD/Reflux, Hyperlipidemia, Hypertension, Myocardial Infarction (NE), Pulmonary Embolus (PE), Renal Disease Additional Past Medical History / Comment(s): home O2 (3L [place] HS), bilateral PEs in 2003, history ETOH abuse - pt states he has never had withdrawal symptoms, chronic low back pain/sciatica/spurs/disc disease - much improved after back injections, past urinary retention, diverticulitis/benign colon polyps removed, nephrolithiasis - passed stones on his own, shingelles 16 years ago - R tamera alonzo. Last Myocardial Infarction Date:: 2010 History of Any Multi-Drug Resistant Organisms: None Reported Past Surgical History: Heart Catheterization With Stent Additional Past Surgical History / Comment(s): back injections for pain, piece of metal removed from right eye, EGD, colonoscopy Past Anesthesia/Blood Transfusion Reactions: No Reported Reaction Additional Past Anesthesia/Blood Transfusion Reaction / Comment(s): claustrophobia Date of Last Stent Placement:: 2010 Past Psychological History: Anxiety, Depression, PTSD Smoking Status: Former smoker Past Alcohol Use History: None Reported Past Drug Use History: None Reported - Past Family History Mother Family Medical History: Cancer Additional Family Medical History / Comment(s): from breast cancer at age 53. Father Family Medical History: Coronary Artery Disease (CAD), Myocardial Infarction (NE) Additional Family Medical History / Comment(s): 4 MIs/CABG. at age 72. <Brook Barth - Last Filed: 06/27/24 15:49> General Exam <Brook Barth - Last Filed: 06/27/24 15:49> <Sarbjit Roberts - Last Filed: 06/27/24 18:52> - General Exam Comments Initial Comments: Visual Physical Exam General: Well-appearing, nontoxic, no acute distress. Head: Normocephalic, atraumatic Eyes: PERRLA, EOMI ENT: Airway patent Chest: Nonlabored breathing Skin: No visual rash, normal skin tone Neuro: Alert and oriented 3 Musculoskeletal: No gross abnormalities (Brook Barth) GENERAL: Patient is well-developed and well-nourished. Patient is nontoxic and well- hydrated and is in mild distress. ENT: Neck is soft and supple. No significant lymphadenopathy is noted. Oropharynx is clear. Moist mucous membranes. Neck has full range of motion without eliciting any pain. EYES: The sclera were anicteric and conjunctiva were pink and moist. Extraocular movements were intact and pupils were equal round and reactive to light. Eyelids were unremarkable. PULMONARY: Expiratory wheezing diffusely CARDIOVASCULAR: There is a regular rate and rhythm without any murmurs gallops or rubs. ABDOMEN: Soft and nontender with normal bowel sounds. SKIN: Skin is clear with no lesions or rashes and otherwise unremarkable. NEUROLOGIC: Patient is alert and oriented x3. Cranial nerves II through XII are grossly intact. Motor and sensory are also intact. Normal speech, volume and content. Symmetrical smile. MUSCULOSKELETAL: Normal extremities with adequate strength and full range of motion. LYMPHATICS: No significant lymphadenopathy is noted PSYCHIATRIC: Normal psychiatric evaluation. (Sarbjit Roberts) Course Vital Signs 06/27/24 16:33 Temperature 97.8 F Pulse Rate 98 Respiratory 19 Rate Blood Pressure 106/59 O2 Sat by Pulse 96 Oximetry Medical Decision Making <Brook Barth - Last Filed: 06/27/24 15:49> - Lab Data Result diagrams: 06/27/24 16:30 06/27/24 16:30 <Sarbjit Roberts - Last Filed: 06/27/24 18:52> - Medical Decision Making I completed the quick note portion of this chart signed Brook Barth PA-C (Brook Barth) EKG is interpreted by myself. EKG shows sinus tachycardia at 103 bpm DE was under 42 QRS is 101 QT interval 332 QTc is 392. Patient's EKG shows no ST segment elevation. Was pt. sent in by a medical professional or institution ([facility], TAKE OFF WORKER, urgent care, hospital, or correction...) When possible be specific @ -No Did you speak to anyone other than the patient for history (EMS, parent, family, police, friend...)? What history was obtained from this source @ -No Did you review nursing and triage notes (agree or disagree)? Why? @ -I reviewed and agree with nursing and triage notes Were old charts reviewed (outside hosp., previous admission, EMS record, old EKG, old radiological studies, urgent care reports/EKG's, correction records)? Report findings @ -No old charts were reviewed Differential Diagnosis? @ -Differential Dyspnea: Coronary syndrome, arrhythmia, tamponade, asthma, COPD, pulmonary embolism, pneumonia, pneumothorax, pulmonary effusion, anaphylaxis, diabetic ketoacidosis, flailed chest, pulmonary contusion, diaphragmatic rupture, anemia, neuromuscular, this is not meant to be an all-inclusive list. EKG interpreted by me (3pts min.). @ -As above X-rays interpreted by me (1pt min.). @ -Chest x-ray shows no acute abnormality CT interpreted by me (1pt min.). @ -None done U/S interpreted by me (1pt. min.). @ -None done What testing was considered but not performed or refused? (CT, X-rays, U/S, labs)? Why? @ -None What meds were considered but not given or refused? Why? @ -None Did you discuss the management of the patient with other professionals (professionals i.e. , PA, TAKE OFF WORKER, lab, RT, psych nurse, clinical social work therapist, seat builder, teacher, operational intelligence officer, caseworker protective services)? Give summary @ -I spoke with Dr. Hyatt he agreed to admit the patient admit the patient wrote admitting orders Was smoking cessation discussed for >3mins.? @ -No Was critical care preformed (if so, how long)? @ -No Were there social determinants of health that impacted care today? How? (Homelessness, low income, unemployed, alcoholism, drug addiction, transportation, low edu. Level, literacy, decrease access to med. care, shelter, rehab)? @ -No Was there de-escalation of care discussed even if they declined (Discuss DNR or withdrawal of care, Hospice)? DNR status @ -No What co-morbidities impacted this encounter? (DM, HTN, Smoking, COPD, CAD, Cancer, CVA, ARF, Chemo, Hep., AIDS, mental health diagnosis, sleep apnea, morbid obesity)? @ -COPD Was patient admitted / discharged? Hospital course, mention meds given and route, prescriptions, significant lab abnormalities, going to OR and other pertinent info. @ -Patient was given 2 breathing treatments steroids and antibiotics while in the emergency department. Patient's lab work came back relatively normal x-ray showed no acute normality. I spoke with Dr. Hyatt he agreed to admit the patient admit the patient wrote admitting orders Undiagnosed new problem with uncertain prognosis? @ -No Drug Therapy requiring intensive monitoring for toxicity (Heparin, Nitro, Insulin, Cardizem)? @ -No Were any procedures done? @ -No Diagnosis/symptom? @ -COPD exacerbation Acute, or Chronic, or Acute on Chronic? @ -Acute Uncomplicated (without systemic symptoms) or Complicated (systemic symptoms)? @ -Complicated Side effects of treatment? @ -No Exacerbation, Progression, or Severe Exacerbation? @ -Exacerbation Poses a threat to life or bodily function? How? (Chest pain, USA, NE, pneumonia, PE, COPD, DKA, ARF, appy, cholecystitis, CVA, Diverticulitis, Homicidal, Suicidal, threat to staff... and all critical care pts) @ -Yes this could lead to hypoxia and endorgan dysfunction (Sarbjit Roberts) - Lab Data Lab Results 06/27/24 06/27/24 06/27/24 Range/Units 16:30 16:30 16:30 WBC 15.7 H (3.8-10.6) k/uL RBC 4.41 (4.30-5.90) m/uL Hgb 12.3 L (13.0-17.5) gm/dL Hct 38.5 L (39.0-53.0) % MCV 87.2 (80.0-100.0) fL MCH 27.8 (25.0-35.0) pg MCHC 31.9 (31.0-37.0) g/dL RDW 15.8 H (11.5-15.5) % Plt Count 330 (150-450) k/uL MPV 7.4 Neutrophils % 90 % Lymphocytes % 5 % Monocytes % 4 % Eosinophils % 0 % Basophils % 0 % Neutrophils # 14.2 H (1.3-7.7) k/uL Lymphocytes # 0.7 L (1.0-4.8) k/uL Monocytes # 0.6 (0-1.0) k/uL Eosinophils # 0.0 (0-0.7) k/uL Basophils # 0.0 (0-0.2) k/uL PT 10.3 (10.0-12.5) sec INR 0.9 (<1.2) APTT 17.9 L (22.0-30.0) sec Sodium 130 L (137-145) mmol/L Potassium 4.3 (3.5-5.1) mmol/L Chloride 88 L (98-107) mmol/L Carbon Dioxide 35 H (22-30) mmol/L Anion Gap 7 mmol/L BUN 19 (9-20) mg/dL Creatinine 0.84 (0.66-1.25) mg/dL Est GFR (CKD-EPI)AfAm >90 (>60 ml/min/1.73 sqM) Est GFR (CKD-EPI)NonAf 85 (>60 ml/min/1.73 sqM) Glucose 165 H (74-99) mg/dL Calcium 9.6 (8.4-10.2) mg/dL Magnesium 2.0 (1.6-2.3) mg/dL Total Bilirubin 0.9 (0.2-1.3) mg/dL AST 24 (17-59) U/L ALT 21 (4-49) U/L Alkaline Phosphatase 57 (38-126) U/L Troponin I (0.000-0.034) ng/mL Total Protein 7.0 (6.3-8.2) g/dL Albumin 4.3 (3.5-5.0) g/dL Influenza Type A (PCR) (Not Detectd) Influenza Type B (PCR) (Not Detectd) RSV (PCR) (Not Detectd) SARS-CoV-2 (PCR) (Not Detectd) 06/27/24 06/27/24 Range/Units 16:30 16:30 WBC (3.8-10.6) k/uL RBC (4.30-5.90) m/uL Hgb (13.0-17.5) gm/dL Hct (39.0-53.0) % MCV (80.0-100.0) fL MCH (25.0-35.0) pg MCHC (31.0-37.0) g/dL RDW (11.5-15.5) % Plt Count (150-450) k/uL MPV Neutrophils % % Lymphocytes % % Monocytes % % Eosinophils % % Basophils % % Neutrophils # (1.3-7.7) k/uL Lymphocytes # (1.0-4.8) k/uL Monocytes # (0-1.0) k/uL Eosinophils # (0-0.7) k/uL Basophils # (0-0.2) k/uL PT (10.0-12.5) sec INR (<1.2) APTT (22.0-30.0) sec Sodium (137-145) mmol/L Potassium (3.5-5.1) mmol/L Chloride (98-107) mmol/L Carbon Dioxide (22-30) mmol/L Anion Gap mmol/L BUN (9-20) mg/dL Creatinine (0.66-1.25) mg/dL Est GFR (CKD-EPI)AfAm (>60 ml/min/1.73 sqM) Est GFR (CKD-EPI)NonAf (>60 ml/min/1.73 sqM) Glucose (74-99) mg/dL Calcium (8.4-10.2) mg/dL Magnesium (1.6-2.3) mg/dL Total Bilirubin (0.2-1.3) mg/dL AST (17-59) U/L ALT (4-49) U/L Alkaline Phosphatase (38-126) U/L Troponin I 0.021 (0.000-0.034) ng/mL Total Protein (6.3-8.2) g/dL Albumin (3.5-5.0) g/dL Influenza Type A (PCR) Not Detected (Not Detectd) Influenza Type B (PCR) Not Detected (Not Detectd) RSV (PCR) Not Detected (Not Detectd) SARS-CoV-2 (PCR) Not Detected (Not Detectd) Disposition <Brook Barth - Last Filed: 06/27/24 15:49> Time of Disposition: 18:52 <Sarbjit Roberts - Last Filed: 06/27/24 18:52> Clinical Impression: COPD with acute exacerbation Disposition: ADMITTED IP TO THIS HOSP Referrals: Enrrique Reese DO [Primary Care Provider] - 1-2 days
[2024-06-27 16:43] LABS: Basophils % (A) 0 %; Eosinophils % (A) 0 %; HCT 38.5 % (39.0-53.0); HGB 12.3 gm/dL (13.0-17.5); Lymphocytes # (A) 0.7 k/uL (1.0-4.8); Lymphocytes % (A) 5 %; MCH 27.8 pg (25.0-35.0); MCHC 31.9 g/dL (31.0-37.0); MCV 87.2 fL (80.0-100.0); Mean Platelet Volume 7.4; Monocytes # (A) 0.6 k/uL (0-1.0); Monocytes % (A) 4 %; Neutrophils # (A) 14.2 k/uL (1.3-7.7); Neutrophils % (A) 90 %; Platelet Count 330 k/uL (150-450); RBC 4.41 m/uL (4.30-5.90); RDW 15.8 % (11.5-15.5); WBC 15.7 k/uL (3.8-10.6)
[2024-06-27 16:51] LABS: ALT 21 U/L (4-49); AST 24 U/L (17-59); African American GFR (CKD) >90 (>60 ml/min/1.73 sqM); Albumin 4.3 g/dL (3.5-5.0); Alkaline Phosphatase 57 U/L (38-126); Anion Gap 7 mmol/L; Blood Urea Nitrogen 19 mg/dL (9-20); Calcium 9.6 mg/dL (8.4-10.2); Carbon Dioxide 35 mmol/L (22-30); Chloride 88 mmol/L (98-107); Glucose 165 mg/dL (74-99); Non-African American GFR(CKD) 85 (>60 ml/min/1.73 sqM); Sodium 130 mmol/L (137-145); Total Bilirubin 0.9 mg/dL (0.2-1.3)
[2024-06-27 16:58] LABS: Potassium 4.3 mmol/L (3.5-5.1)
[2024-06-27 17:01] LABS: INR 0.9 (<1.2); Prothrombin Time 10.3 sec (10.0-12.5)
--- NOTE | 2024-06-27 17:07 | XR ---
EXAMINATION TYPE: XR chest 2V DATE OF EXAM: 06/27/2024 4:56 PM COMPARISON: Chest radiographs from 06/22/2024. CLINICAL INDICATION: Male, 78 years old with history of Shortness of breath; TECHNIQUE: XR chest 2V Frontal and lateral views of the chest. FINDINGS: Lungs/Pleura: There is flattening of the diaphragm with increased lucency of the lungs. No evidence o f pneumothorax, pleural effusion or focal consolidation. Pulmonary vascularity: Unremarkable. Heart/mediastinum: Cardiomediastinal silhouette is unremarkable. Musculoskeletal: No acute osseous pathology. IMPRESSION: 1. No acute cardiopulmonary disease process. 2. COPD changes. [facility], , 06/27/2024 5:05 PM
[2024-06-27 17:17] LABS: Influenza A Not Detected (Not Detectd); Influenza B Not Detected (Not Detectd); RSV Not Detected (Not Detectd)
[2024-06-27 17:35] LABS: Partial Thromboplastin Time 17.9 sec (22.0-30.0)
[2024-06-27] MEDS ORDERED: IPRATROPIUM-ALBUTEROL 3 ML NEB INHALATION PRN (18:52)
[2024-06-27] MEDS ORDERED: NALOXONE 0.4 MG/ML 1 ML VIAL IVP PRN (18:52)
[2024-06-27] MEDS ORDERED: DEXTROSE 50% SYRINGE 50 ML IVP PRN ×2 (19:37)
[2024-06-27] MEDS ORDERED: ALBUTEROL HFA INHALER INHALATION PRN (19:40)
[2024-06-27] MEDS ORDERED: ALBUTEROL NEBULIZED 2.5 MG/3 ML INHALATION SCH (20:00)
[2024-06-27] MEDS ORDERED: NON FORMULARY DRUG (Ipratropium/Albuterol Sulfate [Combivent Respimat Inhaler] 1 INHALER M INHALATION SCH (20:00)
[2024-06-27] MEDS: ALBUTEROL NEBULIZED 2.5 MG/3 ML INHALATION STA (20:48)
[2024-06-27] MEDS: IPRATROPIUM 0.5 MG/2.5 ML NEBU INHALATION STA (20:48)
[2024-06-27] MEDS: IPRATROPIUM-ALBUTEROL 3 ML NEB INHALATION SCH (20:50)
[2024-06-27] MEDS: SYMBICORT 160-4.5 MCG INHALER INHALATION SCH (20:50)
[2024-06-27 20:51] LABS: Glucose,Whole Blood 199 mg/dL (70-110)
[2024-06-27] MEDS: INSULIN LISPRO (HumaLOG) 100 UNIT/ML 10 mL VL SQ SCH (21:26)
[2024-06-27] MEDS: cefTRIAXone IN SWFI 1,000 MG/10 ML SYRINGE IVP STA ×2 (21:27→21:28)
[2024-06-27] MEDS: METOPROLOL TARTRATE 25 MG TAB PO SCH (21:28)
[2024-06-27] MEDS: AMOXIC-POT CLAV 875-125MG 1 EACH TAB PO SCH (21:28)
[2024-06-27] MEDS: ATORVASTATIN 20 MG TAB PO SCH (21:28)
[2024-06-27] MEDS: GABAPENTIN 100 MG CAP PO SCH (21:28)
[2024-06-27] MEDS: CHOLECALCIFEROL 25 MCG (1000 IU) TABLET PO SCH (21:28)
[2024-06-27] MEDS: MONTELUKAST 10 MG TAB PO SCH (21:28)
[2024-06-27] MEDS: methylPREDNISolone SOD SUCCI 125 MG/2 ML VIAL IV STA (21:29)
[2024-06-27 22:06] VITALS: BP 100/71; TEMP 98.8
[2024-06-27] MEDS ORDERED: FUROSEMIDE 10 MG/ML 4 ML VIAL IV STA (22:07)
[2024-06-27 23:13] VITALS: PULSE 111; RESP 28
[2024-06-28] MEDS ORDERED: methylPREDNISolone SOD SUCCI 125 MG/2 ML VIAL IV SCH
--- NOTE | 2024-06-28 02:33 | P.EN ---
patient left Against medical advice from the ED before my evaluation , I was not notified
[2024-06-28] MEDS ORDERED: PANTOPRAZOLE 40 MG TABLET PO SCH (07:30)
[2024-06-28] MEDS ORDERED: NON FORMULARY DRUG (Tiotropium 18 Mcg/Puff 1 PUFF Inhaler) INHALATION SCH (08:00)
[2024-06-28] MEDS ORDERED: SPIRONOLACTONE 25 MG TAB PO SCH (09:00)
[2024-06-28] MEDS ORDERED: CLOPIDOGREL 75 MG TAB PO SCH (09:00)
[2024-06-28] MEDS ORDERED: ASPIRIN 81 MG PO SCH (09:00)
[2024-06-28] MEDS ORDERED: FOLIC ACID 1 MG TAB PO SCH (09:00)
[2024-06-28] MEDS ORDERED: FUROSEMIDE 20 MG TAB PO SCH (09:00)
[2024-06-28] MEDS ORDERED: LORATADINE 10 MG TAB PO SCH (09:00)
[2024-06-28] MEDS ORDERED: ENOXAPARIN 40 MG/0.4 ML SYRINGE SQ SCH (09:00)
[2024-06-28] MEDS ORDERED: CYANOCOBALAMIN 500 MCG TAB PO SCH (09:00)
[2024-06-28] MEDS ORDERED: FERROUS SULFATE 325 MG TAB PO SCH (12:30)
== END 2024-06-27 23:23 | disposition left against medical advice (07) ==
LOC: EC 15:31 → 6NMEDSUR 18:53
PROVIDERS: ADMIT Student in an Organized Health Care Education/Training Program; ATTEND Student in an Organized Health Care Education/Training Program
DX: J44.1 Chronic obstructive pulmonary disease with (acute) exacerbation (principal); E78.5 Hyperlipidemia, unspecified; I10 Essential (primary) hypertension; I25.10 Atherosclerotic heart disease of native coronary artery without angina pectoris; I25.2 Old myocardial infarction; K21.9 Gastro-esophageal reflux disease without esophagitis; Z53.29 Procedure and treatment not carried out because of patient's decision for other reasons; Z79.02 Long term (current) use of antithrombotics/antiplatelets; Z79.51 Long term (current) use of inhaled steroids; Z79.82 Long term (current) use of aspirin; Z86.711 Personal history of pulmonary embolism; Z87.891 Personal history of nicotine dependence; Z79.899 Other long term (current) drug therapy
CPT/HCPCS: 96374; 96375; 99285; 36415; 94640 ×2; 93005; 80053; 83735; 84484; 85025; 85610; 85730; 87636; 71046; G0378; J0696; J2919

== ENCOUNTER 2024-07-10 16:19 | Inpatient (IN) | payer OTHER, MEDICARE ==
[2024-07-10 16:28] VITALS: RESP 18
--- NOTE | 2024-07-10 16:51 | ED ---
Weakness HPI - General Chief complaint: Extremity Injury, Lower Stated complaint: Abd Pain, SOB Time Seen by Provider: 07/10/24 16:25 Source: EMS, RN notes reviewed, old records reviewed Mode of arrival: EMS Limitations: no limitations - History of Present Illness Initial comments: This is a 78-year-old male presenting by EMS for weakness bilateral lower extremity weakness and pain severe shortness of breath especially with activity. Patient states he does not feel well and has not been feeling well since yesterday. MD Complaint: generalized weakness -: days(s) Location: generalized Severity: severe Severity scale (1-10): 8 Consistency: constant Improves with: none Worsens with: none Context: recent illness, history of similar Associated Symptoms: confusion, myalgias, shortness of breath - Related Data Home Medications Medication Instructions Recorded Confirmed Aspirin EC [Ecotrin Low Dose] 81 mg PO DAILY 06/22/18 06/27/24 Budesonide/Formoterol Fumarate 2 puff INHALATION RT-BID 06/22/18 06/27/24 [Symbicort 160-4.5 Mcg Inhaler] Ipratropium/Albuterol Sulfate 1 puff INHALATION RT-QID 06/22/18 06/27/24 [Combivent Respimat Inhaler] Metoprolol Tartrate [Lopressor] 25 mg PO BID 06/22/18 06/27/24 Clopidogrel Bisulfate [Plavix] 75 mg PO DAILY 07/01/18 06/27/24 Albuterol Inhaler [Ventolin Hfa 2 puff INHALATION RT-TID PRN 12/07/19 06/27/24 Inhaler] Albuterol Nebulized [Ventolin 2.5 mg INHALATION RT-QID 12/07/19 06/27/24 Nebulized] Loratadine [Claritin] 10 mg PO DAILY 12/07/19 06/27/24 Simvastatin [Zocor] 40 mg PO HS 12/07/19 06/27/24 Tiotropium 18 Mcg/Puff [Spiriva] 2 puff INHALATION RT-DAILY 12/07/19 06/27/24 Cholecalciferol [Vitamin D3 (25 25 mcg PO BID 03/17/24 06/27/24 Mcg = 1000 Iu)] Ferrous Sulfate [Iron (65 MG 325 mg PO W/LUNCH 04/06/24 06/27/24 Elemental)] Folic Acid 1 mg PO DAILY 04/06/24 06/27/24 Vitamin B-12 50mcg 50 mcg PO DAILY 04/06/24 06/27/24 Furosemide [Lasix] 20 mg PO DAILY 04/16/24 06/27/24 Azithromycin [Zithromax] 500 mg PO MOWEFR 06/09/24 06/27/24 Previous Rx's Medication Instructions Recorded Gabapentin [Neurontin] 200 mg PO TID #90 cap 06/11/24 Montelukast [Singulair] 10 mg PO HS #30 tab 06/16/24 Pantoprazole [Protonix] 40 mg PO AC-BRKFST #30 tab 06/16/24 Spironolactone [Aldactone] 25 mg PO DAILY #90 tab 06/24/24 predniSONE 50 mg PO DAILY #4 tab 06/24/24 Allergies Allergy/AdvReac Type Severity Reaction Status Date / Time fluticasone AdvReac Nausea Verified 07/10/24 16:28 [From [facility]] levofloxacin [From Levaquin] AdvReac TENDON PAIN Verified 07/10/24 16:28 salmeterol AdvReac Nausea Verified 07/10/24 16:28 [From [facility]] Review of Systems ROS Statement: Those systems with pertinent positive or pertinent negative responses have been documented in the HPI. ROS Other: All systems not noted in ROS Statement are negative. Past Medical History Past Medical History: Coronary Artery Disease (CAD), COPD, GERD/Reflux, Hyperlipidemia, Hypertension, Myocardial Infarction (CO), Pulmonary Embolus (PE), Renal Disease Additional Past Medical History / Comment(s): home O2 (3L [place] HS), bilateral PEs in 2003, history ETOH abuse - pt states he has never had withdrawal symptoms, chronic low back pain/sciatica/spurs/disc disease - much improved after back injections, past urinary retention, diverticulitis/benign colon polyps removed, nephrolithiasis - passed stones on his own, shingelles 16 years ago - R shoulder. Last Myocardial Infarction Date:: 2010 History of Any Multi-Drug Resistant Organisms: None Reported Past Surgical History: Heart Catheterization With Stent Additional Past Surgical History / Comment(s): back injections for pain, piece of metal removed from right eye, EGD, colonoscopy Past Anesthesia/Blood Transfusion Reactions: No Reported Reaction Additional Past Anesthesia/Blood Transfusion Reaction / Comment(s): claustrophobia Date of Last Stent Placement:: 2010 Past Psychological History: Anxiety, Depression, PTSD Smoking Status: Former smoker Past Alcohol Use History: None Reported Past Drug Use History: None Reported - Past Family History Mother Family Medical History: Cancer Additional Family Medical History / Comment(s): from breast cancer at age 53. Father Family Medical History: Coronary Artery Disease (CAD), Myocardial Infarction (CO) Additional Family Medical History / Comment(s): 4 MIs/CABG. at age 72. General Exam General appearance: alert, in no apparent distress, anxious Head exam: Present: atraumatic, normocephalic, normal inspection Eye exam: Present: normal appearance, PERRL, EOMI. Absent: scleral icterus, conjunctival injection, periorbital swelling ENT exam: Present: normal exam, mucous membranes moist Neck exam: Present: normal inspection. Absent: tenderness, meningismus, lymphadenopathy Respiratory exam: Present: normal lung sounds bilaterally. Absent: respiratory distress, wheezes, rales, rhonchi, stridor Cardiovascular Exam: Present: regular rate, normal rhythm, normal heart sounds. Absent: systolic murmur, diastolic murmur, rubs, gallop, clicks GI/Abdominal exam: Present: soft, normal bowel sounds. Absent: distended, tenderness, guarding, rebound, rigid Extremities exam: Present: normal inspection, full ROM, normal capillary refill. Absent: tenderness, pedal edema, joint swelling, calf tenderness Back exam: Present: normal inspection Neurological exam: Present: alert, oriented X3, CN II-XII intact Psychiatric exam: Present: normal affect, normal mood Skin exam: Present: warm, dry, intact, normal color. Absent: rash Course Vital Signs 07/10/24 16:25 Temperature 97.9 F Pulse Rate 96 Respiratory 18 Rate Blood Pressure 131/63 O2 Sat by Pulse 95 Oximetry - Reevaluation(s) Reevaluation #1: 07/10/24 17:16 Medical records reviewed Patient states he was just discharged from the hospital yesterday but according to our records he has not been here for about 2 weeks Reevaluation #2: 07/10/24 18:24 Patient's pain is controlled here in the ER Reevaluation #3: 07/10/24 18:24 Patient informed of results questions answered Reevaluation #4: Was pt. sent in by a medical professional or institution (, [facility], CONTRACT AGENT, urgent care, hospital, or penitentiary...) When possible be specific @ -no Did you speak to anyone other than the patient for history (EMS, parent, family, police, friend...)? What history was obtained from this source @ -no Did you review nursing and triage notes (agree or disagree)? Why? @ -agree Are old charts reviewed (outside hosp., previous admission, EMS record, old EKG, old radiological studies, urgent care reports/EKG's, penitentiary records)? Report findings @ -yes Differential Diagnosis (chest pain, altered mental status, abdominal pain women, abdominal pain men, vaginal bleeding, weakness, fever, dyspnea, syncope, headache, dizziness, GI bleed, back pain, seizure, CVA, palpatations, mental health, musculoskeletal)? @ -prior EKG interpreted by me (3pts min.). @ -yes X-rays interpreted by me (1pt min.). @ -yes negative for acute disease CT interpreted by me (1pt min.). @ -no U/S interpreted by me (1pt. min.). @ -no What testing was considered but not performed or refused? (CT, X-rays, U/S, labs)? Why? @ -none What meds were considered but not given or refused? Why? @ -none Did you discuss the management of the patient with other professionals (professionals i.e. , [facility], CONTRACT AGENT, lab, RT, psych nurse, social media campaign manager, oil burner journeyman, teacher, aoc director intelligence officer, case management director)? Give summary @ -no Was smoking cessation discussed for >3mins.? @ -no Was critical care preformed (if so, how long)? @ -no Were there social determinants of health that impacted care today? How? (Homelessness, low income, unemployed, alcoholism, drug addiction, transportati on, low edu. Level, literacy, decrease access to med. care, long-term, rehab)? @ -none Was there de-escalation of care discussed even if they declined (Discuss DNR or withdrawal of care, Hospice)? DNR status @ -no What co-morbidities impacted this encounter? (DM, HTN, Smoking, COPD, CAD, Cancer, CVA, ARF, Chemo, Hep., AIDS, mental health diagnosis, sleep apnea, morbid obesity)? @ -none Was patient admitted / discharged? Hospital course, mention meds given and route, prescriptions, significant lab abnormalities, going to OR and other pertinent info. @ - Undiagnosed new problem with uncertain prognosis? @ -no Drug Therapy requiring intensive monitoring for toxicity (Heparin, Nitro, Insulin, Cardizem)? @ -no Were any procedures done? @ -no Diagnosis/symptom? @ - Acute, or Chronic, or Acute on Chronic? @ -Acute Uncomplicated (without systemic symptoms) or Complicated (systemic symptoms)? @ -Complicated Side effects of treatment? @ -no Exacerbation, Progression, or Severe Exacerbation? @ -exacerbation Poses a threat to life or bodily function? How? (Chest pain, USA, CO, pneumonia, PE, COPD, DKA, ARF, appy, cholecystitis, CVA, Diverticulitis, Homicidal, Suicidal, threat to staff... and all critical care pts) @ -yes Reevaluation #5: Differential Dyspnea: Coronary syndrome, arrhythmia, tamponade, asthma, COPD, pulmonary embolism, pneumonia, pneumothorax, pulmonary effusion, anaphylaxis, diabetic ketoacidosis, flailed chest, pulmonary contusion, diaphragmatic rupture, anemia, neuromuscular, this is not meant to be an all-inclusive list. Differential Weakness: Hypoglycemia, shock, sepsis, hyponatremia, anemia, infection, CO, ETOH, adverse medicine reaction, overdose, stroke, this is not meant to be an all-inclusive list. - Consultations Consultation #1: Spoke with sound who agrees to admit this patient EKG Findings - EKG Comments: EKG Findings:: EKG sinus 94 DE 145 QRS 92 QTc 372 - EKG Results: EKG: interpreted by KIKID Medical Decision Making - Medical Decision Making 78 male to ER for evaluation of significant COPD exacerbation found to have elevated troponin chronically elevated but a little bit more than normal. Likely due to work of breathing. Patient is short of breath here in the ER especially with little activity. Patient will be admitted for COPD exacerbation weakness and debility, markedly increase in white blood cells will treat with antibiotics - Lab Data Result diagrams: 07/10/24 17:00 07/10/24 17:00 Lab Results 07/10/24 07/10/24 07/10/24 Range/Units 17:00 17:00 17:00 WBC 19.3 H (3.8-10.6) k/uL RBC 4.23 L (4.30-5.90) m/uL Hgb 11.8 L (13.0-17.5) gm/dL Hct 37.1 L (39.0-53.0) % MCV 87.8 (80.0-100.0) fL MCH 28.0 (25.0-35.0) pg MCHC 31.9 (31.0-37.0) g/dL RDW 15.9 H (11.5-15.5) % Plt Count 283 (150-450) k/uL MPV 7.1 Neutrophils % 89 % Lymphocytes % 5 % Monocytes % 5 % Eosinophils % 0 % Basophils % 0 % Neutrophils # 17.1 H (1.3-7.7) k/uL Lymphocytes # 1.0 (1.0-4.8) k/uL Monocytes # 1.0 (0-1.0) k/uL Eosinophils # 0.1 (0-0.7) k/uL Basophils # 0.0 (0-0.2) k/uL PT 10.0 (10.0-12.5) sec INR 0.9 (<1.2) APTT 18.4 L (22.0-30.0) sec Sodium 129 L (137-145) mmol/L Potassium 4.2 (3.5-5.1) mmol/L Chloride 89 L (98-107) mmol/L Carbon Dioxide 33 H (22-30) mmol/L Anion Gap 7 mmol/L BUN 14 (9-20) mg/dL Creatinine 0.95 (0.66-1.25) mg/dL Est GFR (CKD-EPI)AfAm >90 (>60 ml/min/1.73 sqM) Est GFR (CKD-EPI)NonAf 78 (>60 ml/min/1.73 sqM) Glucose 116 H (74-99) mg/dL Plasma Lactic Acid Sandor (0.7-2.0) mmol/L Calcium 9.2 (8.4-10.2) mg/dL Magnesium 2.1 (1.6-2.3) mg/dL Total Bilirubin 0.8 (0.2-1.3) mg/dL AST 23 (17-59) U/L ALT 25 (4-49) U/L Alkaline Phosphatase 62 (38-126) U/L Troponin I (0.000-0.034) ng/mL NT-Pro-B Natriuret Pep 959 pg/mL Total Protein 6.0 L (6.3-8.2) g/dL Albumin 3.6 (3.5-5.0) g/dL 07/10/24 07/10/24 Range/Units 17:00 17:00 WBC (3.8-10.6) k/uL RBC (4.30-5.90) m/uL Hgb (13.0-17.5) gm/dL Hct (39.0-53.0) % MCV (80.0-100.0) fL MCH (25.0-35.0) pg MCHC (31.0-37.0) g/dL RDW (11.5-15.5) % Plt Count (150-450) k/uL MPV Neutrophils % % Lymphocytes % % Monocytes % % Eosinophils % % Basophils % % Neutrophils # (1.3-7.7) k/uL Lymphocytes # (1.0-4.8) k/uL Monocytes # (0-1.0) k/uL Eosinophils # (0-0.7) k/uL Basophils # (0-0.2) k/uL PT (10.0-12.5) sec INR (<1.2) APTT (22.0-30.0) sec Sodium (137-145) mmol/L Potassium (3.5-5.1) mmol/L Chloride (98-107) mmol/L Carbon Dioxide (22-30) mmol/L Anion Gap mmol/L BUN (9-20) mg/dL Creatinine (0.66-1.25) mg/dL Est GFR (CKD-EPI)AfAm (>60 ml/min/1.73 sqM) Est GFR (CKD-EPI)NonAf (>60 ml/min/1.73 sqM) Glucose (74-99) mg/dL Plasma Lactic Acid Sandor 2.9 H* (0.7-2.0) mmol/L Calcium (8.4-10.2) mg/dL Magnesium (1.6-2.3) mg/dL Total Bilirubin (0.2-1.3) mg/dL AST (17-59) U/L ALT (4-49) U/L Alkaline Phosphatase (38-126) U/L Troponin I 0.070 H* (0.000-0.034) ng/mL NT-Pro-B Natriuret Pep pg/mL Total Protein (6.3-8.2) g/dL Albumin (3.5-5.0) g/dL - EKG Data -: EKG Interpreted by Me - Radiology Data Radiology results: report reviewed (Chest x-ray is negative for acute disease), image reviewed Disposition Clinical Impression: Weakness, COPD (chronic obstructive pulmonary disease), COPD with acute exacerbation, Elevated troponin, Unable to ambulate, Bilateral leg pain Disposition: ADMITTED IP TO THIS HOSP Condition: Fair Is patient prescribed a controlled substance at d/c from ED?: No Referrals: Enrrique Reese DO [Primary Care Provider] - 1-2 days Time of Disposition: 18:20
[2024-07-10 17:07] LABS: Basophils % (A) 0 %; Eosinophils # (A) 0.1 k/uL (0-0.7); Eosinophils % (A) 0 %; HCT 37.1 % (39.0-53.0); HGB 11.8 gm/dL (13.0-17.5); Lymphocytes % (A) 5 %; MCHC 31.9 g/dL (31.0-37.0); MCV 87.8 fL (80.0-100.0); Mean Platelet Volume 7.1; Monocytes % (A) 5 %; Neutrophils # (A) 17.1 k/uL (1.3-7.7); Neutrophils % (A) 89 %; Platelet Count 283 k/uL (150-450); RBC 4.23 m/uL (4.30-5.90); RDW 15.9 % (11.5-15.5); WBC 19.3 k/uL (3.8-10.6)
[2024-07-10 17:18] LABS: ALT 25 U/L (4-49); AST 23 U/L (17-59); African American GFR (CKD) >90 (>60 ml/min/1.73 sqM); Albumin 3.6 g/dL (3.5-5.0); Alkaline Phosphatase 62 U/L (38-126); Anion Gap 7 mmol/L; Blood Urea Nitrogen 14 mg/dL (9-20); Calcium 9.2 mg/dL (8.4-10.2); Carbon Dioxide 33 mmol/L (22-30); Chloride 89 mmol/L (98-107); Glucose 116 mg/dL (74-99); Magnesium 2.1 mg/dL (1.6-2.3); Non-African American GFR(CKD) 78 (>60 ml/min/1.73 sqM); Potassium 4.2 mmol/L (3.5-5.1); Sodium 129 mmol/L (137-145); Total Bilirubin 0.8 mg/dL (0.2-1.3)
[2024-07-10 17:22] LABS: INR 0.9 (<1.2)
[2024-07-10] MEDS: methylPREDNISolone SOD SUCCI 125 MG/2 ML VIAL IV STA (17:22)
[2024-07-10] MEDS: SODIUM CHLORIDE 0.9% 1,000 ML IV SCH ×2 (17:23→18:45)
[2024-07-10 17:25] LABS: Partial Thromboplastin Time 18.4 sec (22.0-30.0)
[2024-07-10 17:27] LABS: NT-Pro-B-Type Natriuretic Pept 959 pg/mL
[2024-07-10] MEDS: ALBUTEROL NEBULIZED 2.5 MG/3 ML INHALATION STA (17:43)
[2024-07-10] MEDS: IPRATROPIUM 0.5 MG/2.5 ML NEBU INHALATION STA (17:43)
[2024-07-10] MEDS: HYDROmorphone 0.5 MG/0.5 ML SYRINGE IVP STA (17:48)
--- NOTE | 2024-07-10 17:48 | XR ---
EXAMINATION TYPE: XR chest 2V DATE OF EXAM: 07/10/2024 5:40 PM COMPARISON: 06/27/24 CLINICAL INDICATION: Male, 78 years old with history of difficulty breathing: Shortness of breath TECHNIQUE: XR chest 2V views of the chest are obtained. FINDINGS: Scattered senescent parenchymal changes noted. Hyperinflation compatible with COPD. No evidence for infiltrate. No evidence for atelectasis. Heart size is stable. Mediastinal structures are stable and grossly unremarkable. No evidence for hilar prominence. Degenerative changes dorsal spine. IMPRESSION: 1. No evidence for acute pulmonary disease. [facility], , 07/10/2024 5:45 PM
[2024-07-10] MEDS ORDERED: ACETAMINOPHEN TAB 325 MG TAB PO PRN (18:20)
[2024-07-10] MEDS ORDERED: HYDROmorphone 0.5 MG/0.5 ML SYRINGE IVP PRN (18:20)
[2024-07-10] MEDS ORDERED: NALOXONE 0.4 MG/ML 1 ML VIAL IV PRN (18:20)
[2024-07-10] MEDS ORDERED: ONDANSETRON 4 MG/2 ML VIAL IVP PRN (18:20)
[2024-07-10] MEDS ORDERED: IPRATROPIUM-ALBUTEROL 3 ML NEB INHALATION STA (18:20)
[2024-07-10 18:23] VITALS: BP 106/61; PULSE 89
[2024-07-10] MEDS: cefTRIAXone IN SWFI 1,000 MG/10 ML SYRINGE IVP STA (18:39)
[2024-07-10 18:40] LABS: Appearance,Urine Clear (Clear); Bilirubin,Urine Negative (Negative); Blood,Urine Negative (Negative); Color,Urine Colorless; Glucose,Urine (UA) Negative (Negative); Ketones,Urine Negative (Negative); Leukocyte Esterase,Urine Negative (Negative); Nitrite,Urine Negative (Negative); PH, Urine 7.5 (5.0-8.0); Protein,Urine Negative (Negative); Specific Gravity,Urine 1.007 (1.001-1.035); Urobilinogen,Urine <2.0 mg/dL (<2.0)
[2024-07-10] MEDS: AZITHROMYCIN 500 MG in SODIUM CHLORIDE 0.9% 250 ML IVPB STA (18:40)
[2024-07-10 18:45] VITALS: TEMP 97.7
[2024-07-10 19:15] LABS: Influenza A Not Detected (Not Detectd); Influenza B Not Detected (Not Detectd); RSV Not Detected (Not Detectd)
[2024-07-11] MEDS ORDERED: methylPREDNISolone SOD SUCCI 125 MG/2 ML VIAL IV SCH
[2024-07-11] MEDS ORDERED: AZITHROMYCIN 500 MG in SODIUM CHLORIDE 0.9% 250 ML IVPB SCH (09:00)
== END 2024-07-10 20:36 | disposition left against medical advice (07) | DRG 192 ==
LOC: EC 16:19 → 3SCARD 18:21
PROVIDERS: ADMIT Internal Medicine; ATTEND Internal Medicine
DX: J44.1 Chronic obstructive pulmonary disease with (acute) exacerbation (principal); Z99.81 Dependence on supplemental oxygen; I25.10 Atherosclerotic heart disease of native coronary artery without angina pectoris; I25.2 Old myocardial infarction; R53.1 Weakness; R79.89 Other specified abnormal findings of blood chemistry; M79.10 Myalgia, unspecified site; R53.81 Other malaise; Z87.891 Personal history of nicotine dependence; Z95.5 Presence of coronary angioplasty implant and graft; Z86.711 Personal history of pulmonary embolism; Z86.0100 Personal history of colon polyps, unspecified; Z79.52 Long term (current) use of systemic steroids; Z79.02 Long term (current) use of antithrombotics/antiplatelets; Z79.899 Other long term (current) drug therapy; Z79.82 Long term (current) use of aspirin; Z79.51 Long term (current) use of inhaled steroids
CPT/HCPCS: 36415; 71046; 80053; 81003; 83605; 83735; 83880; 84484; 85025; 85610; 85730; 87636; 93005; 96361; 96365; 96366; 96375; 99285

== ENCOUNTER 2024-07-16 15:29 | Emergency (ER) | payer OTHER, MEDICARE ==
[2024-07-16 16:11] VITALS: TEMP 98.2
--- NOTE | 2024-07-16 16:20 | ED ---
General Adult HPI - General Source: patient, RN notes reviewed Mode of arrival: ambulatory Limitations: no limitations <Delano Turner - Last Filed: 07/16/24 16:18> - General Source: patient, RN notes reviewed <Brook Barth - Last Filed: 07/16/24 23:47> - General Chief complaint: Extremity Injury, Upper Stated complaint: L shoulder pain Time Seen by Provider: 07/16/24 15:46 - History of Present Illness Initial comments: Quick note: This is a 78-year-old male with history of CAD, AMI and COPD presenting with left arm pain starting last night. Patient denies recent trauma or known cause for pain. Endorses associated dyspnea attributed to COPD. Endorses home O2 use but did not bring with him today. Patient states pain worsens with movement. Denies chest pain, dizziness, sweating, pallor, lightheadedness. (Delano Turner) 78-year-old male with history of COPD on 3 L O2 at night, heart failure with preserved ejection ejection fraction, hypertension, rip-mgqiezf-looychlfx diabetes, pulmonary embolism, hyperlipidemia and CAD with stents presenting for left arm pain since last night. Pain is worse with movement. Denies trauma or injury. Also endorses worsening shortness of breath. Patient does have a history of COPD. Patient states he is on baby aspirin and Plavix. Denies chest pain, lightheadedness, abdominal pain. (Brook Barth) - Related Data Home Medications Medication Instructions Recorded Confirmed Aspirin EC [Ecotrin Low Dose] 81 mg PO DAILY 06/22/18 07/10/24 Budesonide/Formoterol Fumarate 2 puff INHALATION RT-BID 06/22/18 07/10/24 [Symbicort 160-4.5 Mcg Inhaler] Ipratropium/Albuterol Sulfate 1 puff INHALATION RT-QID 06/22/18 07/10/24 [Combivent Respimat Inhaler] Metoprolol Tartrate [Lopressor] 25 mg PO BID 06/22/18 07/10/24 Clopidogrel Bisulfate [Plavix] 75 mg PO DAILY 07/01/18 07/10/24 Albuterol Inhaler [Ventolin Hfa 2 puff INHALATION RT-TID PRN 12/07/19 07/10/24 Inhaler] Albuterol Nebulized [Ventolin 2.5 mg INHALATION RT-QID 12/07/19 07/10/24 Nebulized] Loratadine [Claritin] 10 mg PO DAILY 12/07/19 07/10/24 Simvastatin [Zocor] 40 mg PO HS 12/07/19 07/10/24 Tiotropium 18 Mcg/Puff [Spiriva] 2 puff INHALATION RT-DAILY 12/07/19 07/10/24 Cholecalciferol [Vitamin D3 (25 25 mcg PO BID 03/17/24 07/10/24 Mcg = 1000 Iu)] Ferrous Sulfate [Iron (65 MG 325 mg PO W/LUNCH 04/06/24 07/10/24 Elemental)] Folic Acid 1 mg PO DAILY 04/06/24 07/10/24 Vitamin B-12 50mcg 50 mcg PO DAILY 04/06/24 07/10/24 Furosemide [Lasix] 20 mg PO DAILY 04/16/24 07/10/24 Azithromycin [Zithromax] 500 mg PO MOWEFR 06/09/24 07/10/24 Previous Rx's Medication Instructions Recorded Gabapentin [Neurontin] 200 mg PO TID #90 cap 06/11/24 Montelukast [Singulair] 10 mg PO HS #30 tab 06/16/24 Pantoprazole [Protonix] 40 mg PO AC-BRKFST #30 tab 06/16/24 Spironolactone [Aldactone] 25 mg PO DAILY #90 tab 06/24/24 Allergies Allergy/AdvReac Type Severity Reaction Status Date / Time fluticasone AdvReac Nausea Verified 07/16/24 16:10 [From [facility]] levofloxacin [From Levaquin] AdvReac TENDON PAIN Verified 07/16/24 16:10 salmeterol AdvReac Nausea Verified 07/16/24 16:10 [From [facility]] Review of Systems ROS Other: All systems not noted in ROS Statement are negative. <Delano Turner - Last Filed: 07/16/24 16:18> ROS Other: All systems not noted in ROS Statement are negative. <Brook Barth - Last Filed: 07/16/24 23:47> ROS Statement: Those systems with pertinent positive or pertinent negative responses have been documented in the HPI. Past Medical History Past Medical History: Coronary Artery Disease (CAD), COPD, GERD/Reflux, Hyperlipidemia, Hypertension, Myocardial Infarction (CO), Pulmonary Embolus (PE), Renal Disease Additional Past Medical History / Comment(s): home O2 (3L [place] HS), bilateral PEs in 2003, history ETOH abuse - pt states he has never had withdrawal symptoms, chronic low back pain/sciatica/spurs/disc disease - much improved after back injections, past urinary retention, diverticulitis/benign colon polyps removed, nephrolithiasis - passed stones on his own, shingelles 16 years ago - R shoulder. Last Myocardial Infarction Date:: 2010 History of Any Multi-Drug Resistant Organisms: None Reported Past Surgical History: Heart Catheterization With Stent Additional Past Surgical History / Comment(s): back injections for pain, piece of metal removed from right eye, EGD, colonoscopy Past Anesthesia/Blood Transfusion Reactions: No Reported Reaction Additional Past Anesthesia/Blood Transfusion Reaction / Comment(s): claust rophobia Date of Last Stent Placement:: 2010 Past Psychological History: Anxiety, Depression, PTSD Smoking Status: Former smoker Past Alcohol Use History: None Reported Past Drug Use History: None Reported - Past Family History Mother Family Medical History: Cancer Additional Family Medical History / Comment(s): from breast cancer at age 53. Father Family Medical History: Coronary Artery Disease (CAD), Myocardial Infarction (CO) Additional Family Medical History / Comment(s): 4 MIs/CABG. at age 72. <YueDelano - Last Filed: 07/16/24 16:18> General Exam Limitations: no limitations <YueDelano - Last Filed: 07/16/24 16:18> General appearance: alert, in no apparent distress Head exam: Present: atraumatic, normocephalic, normal inspection Eye exam: Present: normal appearance, PERRL, EOMI. Absent: scleral icterus, conjunctival injection, periorbital swelling ENT exam: Present: normal exam, mucous membranes moist Respiratory exam: Present: normal lung sounds bilaterally, wheezes. Absent: respiratory distress, rales, rhonchi, stridor Cardiovascular Exam: Present: regular rate, normal rhythm, normal heart sounds. Absent: systolic murmur, diastolic murmur, rubs, gallop, clicks Neurological exam: Present: alert, oriented X3 Psychiatric exam: Present: normal affect, normal mood Skin exam: Present: warm, dry, intact, normal color. Absent: rash <Brook Barth - Last Filed: 07/16/24 23:47> - General Exam Comments Initial Comments: Visual Physical Exam Vital signs reviewed General: Patient appears fatigued. Nontoxic, no acute distress. Head: Normocephalic, atraumatic Eyes: PERRLA, EOMI ENT: Airway patent Chest: Nonlabored breathing Skin: No visual rash, normal skin tone Neuro: Alert and oriented 3 Musculoskeletal: No gross abnormalities (Delano Turner) Course Vital Signs 07/16/24 07/16/24 16:06 19:45 Temperature 98.2 F Pulse Rate 81 84 Respiratory 17 18 Rate Blood Pressure 97/59 109/60 O2 Sat by Pulse 97 95 Oximetry EKG Findings - EKG Results: EKG: interpreted by ERMD (EKG reveals normal sinus rhythm) <BarthBrook - Last Filed: 07/16/24 23:47> Medical Decision Making <Delano Turner - Last Filed: 07/16/24 16:18> - Lab Data Result diagrams: 07/16/24 16:37 07/16/24 16:37 <Brook Barth - Last Filed: 07/16/24 23:47> - Medical Decision Making I completed the quick note portion of this chart signed MIRIAN Fall (Delano Turner) Was pt. sent in by a medical professional or institution ([facility]burn, PHOTOGRAPHIC PRESS SCREWMAKER, urgent care, hospital, or intermediate...) When possible be specific @ -No Did you speak to anyone other than the patient for history (EMS, parent, family, police, friend...)? What history was obtained from this source @ -No Did you review nursing and triage notes (agree or disagree)? Why? @ -I reviewed and agree with nursing and triage notes Were old charts reviewed (outside hosp., previous admission, EMS record, old EKG, old radiological studies, urgent care reports/EKG's, intermediate records)? Report findings @ -No old charts were reviewed Differential Diagnosis (chest pain, altered mental status, abdominal pain women, abdominal pain men, vaginal bleeding, weakness, fever, dyspnea, syncope, headache, dizziness, GI bleed, back pain, seizure, CVA, palpatations, mental health, musculoskeletal)? @ -Differential Dyspnea: Coronary syndrome, arrhythmia, tamponade, asthma, COPD, pulmonary embolism, pneumonia, pneumothorax, pulmonary effusion, anaphylaxis, diabetic ketoacidosis, flailed chest, pulmonary contusion, diaphragmatic rupture, anemia, neuromuscular, this is not meant to be an all-inclusive list. EKG interpreted by me (3pts min.). @ -As above X-rays interpreted by me (1pt min.). @ -Chest x-ray reveals no acute process CT interpreted by me (1pt min.). @ -CT angio chest reveals no evidence of PE, severe atherosclerosis of coronary arteries U/S interpreted by me (1pt. min.). @ -None done What testing was considered but not performed or refused? (CT, X-rays, U/S, labs)? Why? @ -None What meds were considered but not given or refused? Why? @ -None Did you discuss the management of the patient with other professionals (professionals i.e. , PA, PHOTOGRAPHIC PRESS SCREWMAKER, lab, RT, psych nurse, social group worker, metal hanging supervisor, teacher, patient transport officer, high risk case manager)? Give summary @ -I spoke with Dr. Hyatt who accepts admission Was smoking cessation discussed for >3mins.? @ -No Was critical care preformed (if so, how long)? @ -No Were there social determinants of health that impacted care today? How? (Homelessness, low income, unemployed, alcoholism, drug addiction, transportation, low edu. Level, literacy, decrease access to med. care, shelter, rehab)? @ -No Was there de-escalation of care discussed even if they declined (Discuss DNR or withdrawal of care, Hospice)? DNR status @ -No What co-morbidities impacted this encounter? (DM, HTN, Smoking, COPD, CAD, Cancer, CVA, ARF, Chemo, Hep., AIDS, mental health diagnosis, sleep apnea, mo rbid obesity)? @ -COPD Was patient admitted / discharged? Hospital course, mention meds given and ro tanya, prescriptions, significant lab abnormalities, going to OR and other pertinent info. @ -Patient left AGAINST MEDICAL ADVICE. 78-year-old male with history of COPD on 3 L of oxygen at night, hypertension, heart failure with preserved ejection fraction, wug-oxvzxeg-ahsvclerf diabetes mellitus, pulmonary embolism, hyperlipidemia presenting for left shoulder pain x 1 day with associated increasing dyspnea. Lab work remarkable for white blood cell count 13.7 improved from previous value, hyponatremia 129, CO2 38, elevated troponin of 0.052 appears to be chronically elevated, D-dimer elevated at 2.95. Chest x-ray reveals no acute process. CT angio chest reveals no evidence of PE, severe at herosclerosis of coronary arteries. Viral swabs were negative. Discussed results with patient. I recommended admission at this time for COPD exacerbation and ACS rule out. Patient is initially agreeable to plan however after admission orders were placed I was notified by the nurse that patient left AGAINST MEDICAL ADVICE. Case was discussed with my ED attending Dr. Roberts. Undiagnosed new problem with uncertain prognosis? @ -No Drug Therapy requiring intensive monitoring for toxicity (Heparin, Nitro, Insulin, Cardizem)? @ -No Were any procedures done? @ -No Diagnosis/symptom? @ -COPD exacerbation Acute, or Chronic, or Acute on Chronic? @ -Acute on chronic Uncomplicated (without systemic symptoms) or Complicated (systemic symptoms)? @ -Complicated Side effects of treatment? @ -No Exacerbation, Progression, or Severe Exacerbation? @ -No Poses a threat to life or bodily function? How? (Chest pain, USA, CO, pneumonia, PE, COPD, DKA, ARF, appy, cholecystitis, CVA, Diverticulitis, Homicidal, Suicidal, threat to staff... and all critical care pts) @ -Possibly (Brook Barth) - Lab Data Lab Results 07/16/24 07/16/24 07/16/24 Range/Units 16:37 16:37 16:37 WBC 13.7 H (3.8-10.6) k/uL RBC 4.30 (4.30-5.90) m/uL Hgb 12.4 L (13.0-17.5) gm/dL Hct 36.9 L (39.0-53.0) % MCV 85.8 (80.0-100.0) fL MCH 28.8 (25.0-35.0) pg MCHC 33.6 (31.0-37.0) g/dL RDW 15.4 (11.5-15.5) % Plt Count 248 (150-450) k/uL MPV 6.8 Neutrophils % 83 % Lymphocytes % 9 % Monocytes % 6 % Eosinophils % 0 % Basophils % 0 % Neutrophils # 11.4 H (1.3-7.7) k/uL Lymphocytes # 1.2 (1.0-4.8) k/uL Monocytes # 0.9 (0-1.0) k/uL Eosinophils # 0.0 (0-0.7) k/uL Basophils # 0.0 (0-0.2) k/uL PT 10.0 (10.0-12.5) sec INR 0.9 (<1.2) APTT 19.4 L (22.0-30.0) sec D-Dimer (<0.60) mg/L FEU Sodium 129 L (137-145) mmol/L Potassium 3.8 (3.5-5.1) mmol/L Chloride 87 L (98-107) mmol/L Carbon Dioxide 38 H (22-30) mmol/L Anion Gap 4 mmol/L BUN 23 H (9-20) mg/dL Creatinine 0.90 (0.66-1.25) mg/dL Est GFR (CKD-EPI)AfAm >90 (>60 ml/min/1.73 sqM) Est GFR (CKD-EPI)NonAf 83 (>60 ml/min/1.73 sqM) Glucose 126 H (74-99) mg/dL Calcium 9.0 (8.4-10.2) mg/dL Magnesium 1.8 (1.6-2.3) mg/dL Total Bilirubin 0.9 (0.2-1.3) mg/dL AST 24 (17-59) U/L ALT 38 (4-49) U/L Alkaline Phosphatase 71 (38-126) U/L Troponin I (0.000-0.034) ng/mL Total Protein 6.3 (6.3-8.2) g/dL Albumin 3.9 (3.5-5.0) g/dL Influenza Type A (PCR) (Not Detectd) Influenza Type B (PCR) (Not Detectd) RSV (PCR) (Not Detectd) SARS-CoV-2 (PCR) (Not Detectd) 07/16/24 07/16/24 07/16/24 Range/Units 16:37 16:37 18:10 WBC (3.8-10.6) k/uL RBC (4.30-5.90) m/uL Hgb (13.0-17.5) gm/dL Hct (39.0-53.0) % MCV (80.0-100.0) fL MCH (25.0-35.0) pg MCHC (31.0-37.0) g/dL RDW (11.5-15.5) % Plt Count (150-450) k/uL MPV Neutrophils % % Lymphocytes % % Monocytes % % Eosinophils % % Basophils % % Neutrophils # (1.3-7.7) k/uL Lymphocytes # (1.0-4.8) k/uL Monocytes # (0-1.0) k/uL Eosinophils # (0-0.7) k/uL Basophils # (0-0.2) k/uL PT (10.0-12.5) sec INR (<1.2) APTT (22.0-30.0) sec D-Dimer 2.95 H (<0.60) mg/L FEU Sodium (137-145) mmol/L Potassium (3.5-5.1) mmol/L Chloride (98-107) mmol/L Carbon Dioxide (22-30) mmol/L Anion Gap mmol/L BUN (9-20) mg/dL Creatinine (0.66-1.25) mg/dL Est GFR (CKD-EPI)AfAm (>60 ml/min/1.73 sqM) Est GFR (CKD-EPI)NonAf (>60 ml/min/1.73 sqM) Glucose (74-99) mg/dL Calcium (8.4-10.2) mg/dL Magnesium (1.6-2.3) mg/dL Total Bilirubin (0.2-1.3) mg/dL AST (17-59) U/L ALT (4-49) U/L Alkaline Phosphatase (38-126) U/L Troponin I 0.052 H* (0.000-0.034) ng/mL Total Protein (6.3-8.2) g/dL Albumin (3.5-5.0) g/dL Influenza Type A (PCR) Not Detected (Not Detectd) Influenza Type B (PCR) Not Detected (Not Detectd) RSV (PCR) Not Detected (Not Detectd) SARS-CoV-2 (PCR) Not Detected (Not Detectd) Disposition <Delano Turner - Last Filed: 07/16/24 16:18> Time of Disposition: 20:37 <Brook Barth - Last Filed: 07/16/24 23:47> Clinical Impression: COPD exacerbation Disposition: LEFT AGAINST MEDICAL ADVICE Referrals: None,Stated [REFERRING] - 1-2 days
--- NOTE | 2024-07-16 16:55 | XR ---
EXAMINATION TYPE: XR chest 2V DATE OF EXAM: 07/16/2024 4:50 PM COMPARISON: 07/10/2024 CLINICAL INDICATION: Male, 78 years old with history of Chest Pain: Shortness of breath TECHNIQUE: XR chest 2V views of the chest are obtained. FINDINGS: Scattered senescent parenchymal changes noted. Hyperinflation compatible with COPD. No evidence for infiltrate. No evidence for atelectasis. Heart size is stable. Mediastinal structures are stable and grossly unremarkable. No evidence for hilar prominence. Degenerative changes dorsal spine. IMPRESSION: 1. No evidence for acute pulmonary disease. [facility], , 07/16/2024 4:52 PM
[2024-07-16 17:00] LABS: ALT 38 U/L (4-49); AST 24 U/L (17-59); African American GFR (CKD) >90 (>60 ml/min/1.73 sqM); Albumin 3.9 g/dL (3.5-5.0); Alkaline Phosphatase 71 U/L (38-126); Anion Gap 4 mmol/L; Blood Urea Nitrogen 23 mg/dL (9-20); Carbon Dioxide 38 mmol/L (22-30); Chloride 87 mmol/L (98-107); Glucose 126 mg/dL (74-99); Magnesium 1.8 mg/dL (1.6-2.3); Non-African American GFR(CKD) 83 (>60 ml/min/1.73 sqM); Potassium 3.8 mmol/L (3.5-5.1); Sodium 129 mmol/L (137-145); Total Bilirubin 0.9 mg/dL (0.2-1.3); Total Protein 6.3 g/dL (6.3-8.2)
[2024-07-16 17:06] LABS: INR 0.9 (<1.2)
[2024-07-16 17:12] LABS: Partial Thromboplastin Time 19.4 sec (22.0-30.0)
[2024-07-16 17:15] LABS: Basophils % (A) 0 %; Eosinophils % (A) 0 %; HCT 36.9 % (39.0-53.0); HGB 12.4 gm/dL (13.0-17.5); Lymphocytes # (A) 1.2 k/uL (1.0-4.8); Lymphocytes % (A) 9 %; MCH 28.8 pg (25.0-35.0); MCHC 33.6 g/dL (31.0-37.0); MCV 85.8 fL (80.0-100.0); Mean Platelet Volume 6.8; Monocytes # (A) 0.9 k/uL (0-1.0); Monocytes % (A) 6 %; Neutrophils # (A) 11.4 k/uL (1.3-7.7); Neutrophils % (A) 83 %; Platelet Count 248 k/uL (150-450); RDW 15.4 % (11.5-15.5); WBC 13.7 k/uL (3.8-10.6)
[2024-07-16] MEDS: ASPIRIN 81 MG PO STA (18:31)
[2024-07-16] MEDS: MORPHINE SULFATE 4 MG/ML SYRINGE IVP STA (18:40)
[2024-07-16 18:55] LABS: Influenza A Not Detected (Not Detectd); Influenza B Not Detected (Not Detectd); RSV Not Detected (Not Detectd)
--- NOTE | 2024-07-16 18:58 | XR ---
EXAMINATION TYPE: XR shoulder complete LT DATE OF EXAM: 07/16/2024 6:28 PM COMPARISON: None CLINICAL INDICATION: Male, 78 years old with history of left shoulder pain; PHH, pain TECHNIQUE: XR shoulder complete LT; examined in AP, internally rotated and scapular Y projections. FINDINGS: No evidence of acute osseous pathology, joint dislocation, or soft tissue swelling. The remaining po rtions of the visualized chest are unremarkable. Degeneration changes of the acromion, distal clavic le with osteophyte formation. There is osteophyte formation of the glenoid and humeral head. There is joint space narrowing of glenohumeral joint. IMPRESSION: No acute osseous pathology. [facility], , 07/16/2024 6:56 PM
--- NOTE | 2024-07-16 19:37 | CT ---
EXAMINATION TYPE: CT chest angio for PE DATE OF EXAM: 07/16/2024 7:27 PM COMPARISON: 04/30/2024. CLINICAL INDICATION: Male, 78 years old with history of shortness of breath, elevated D-dimer; Shortn ess of breath, elevated D-dimer. TECHNIQUE/CONTRAST: CTA scan of the thorax is performed with IV Contrast, patient injected with 100 ml mL of Isovue 370, MIP images are created and reviewed these are created on a separate workstation.. CT DLP: 669.9 mGycm, Automated exposure control for dose reduction was used. FINDINGS: Lungs/Pleura: No evidence of focal consolidation, pleural effusion or pneumothorax. Right lower lobe medial calcified granuloma. Mild centrilobular emphysema changes. Airway: Large airways are patent. Heart: Size within normal limits. Severe coronary artery calcifications present. Vasculature: There is no evidence for a filling defect within the pulmonary vasculature to suggest ac tanya pulmonary embolism. The pulmonary artery is of normal size. Mediastinum: No gross evidence of adenopathy. Partially calcified lymph nodes in the mediastinum on t he right Musculoskeletal: Moderate to severe disc degeneration changes are present throughout the thoracolumba r spine secondary to osteophyte formation and facet joint arthropathy. Soft Tissues/lymph nodes: Unremarkable. Lower neck: No significant findings. Upper Abdomen: Scattered calcified granulomas in the spleen. Simple appearing right renal cortical cy st. IMPRESSION: 1. No evidence of pulmonary embolism. 2. Severe atherosclerosis of the coronary arteries. 3. Moderate to severe disc degeneration changes throughout the spine. Follow up recommendations for incidental pulmonary nodules, if there are any, are per [employer] or [employer]. https://radiopaedia.org/articles/xyskerelgo-ncxptmo-addfvqnso-yjezwm-hyyrwrqwcopdpho-9?lang=us [facility], , 07/16/2024 7:35 PM
[2024-07-16 19:48] VITALS: BP 109/60; PULSE 84; RESP 18
[2024-07-16] MEDS ORDERED: ONDANSETRON 4 MG/2 ML VIAL IVP PRN (20:28)
[2024-07-16] MEDS ORDERED: HYDROmorphone 0.5 MG/0.5 ML SYRINGE IVP PRN (20:28)
[2024-07-16] MEDS ORDERED: MORPHINE SULFATE 4 MG/ML SYRINGE IV PRN (20:28)
[2024-07-16] MEDS ORDERED: NALOXONE 0.4 MG/ML 1 ML VIAL IV PRN (20:28)
[2024-07-16] MEDS ORDERED: ACETAMINOPHEN TAB 325 MG TAB PO PRN (20:28)
[2024-07-16] MEDS ORDERED: IPRATROPIUM-ALBUTEROL 3 ML NEB INHALATION STA (20:47)
[2024-07-16] MEDS ORDERED: IPRATROPIUM-ALBUTEROL 3 ML NEB INHALATION PRN (20:47)
[2024-07-16] MEDS ORDERED: predniSONE 20 MG TAB PO SCH (21:15)
[2024-07-17] MEDS ORDERED: PANTOPRAZOLE 40 MG TABLET PO SCH (07:30)
[2024-07-17] MEDS ORDERED: INSULIN LISPRO (HumaLOG) 100 UNIT/ML 10 mL VL SQ SCH (07:30)
[2024-07-17] MEDS ORDERED: SYMBICORT 160-4.5 MCG INHALER INHALATION SCH (08:00)
[2024-07-17] MEDS ORDERED: TIOTROPIUM 2.5 MCG INHALER INHALATION SCH (08:00)
[2024-07-17] MEDS ORDERED: IPRATROPIUM-ALBUTEROL 3 ML NEB INHALATION SCH (08:00)
[2024-07-17] MEDS ORDERED: ASPIRIN 81 MG PO SCH (09:00)
[2024-07-17] MEDS ORDERED: SPIRONOLACTONE 25 MG TAB PO SCH (09:00)
[2024-07-17] MEDS ORDERED: FUROSEMIDE 20 MG TAB PO SCH (09:00)
[2024-07-17] MEDS ORDERED: ATORVASTATIN 20 MG TAB PO SCH (21:00)
[2024-07-18] MEDS ORDERED: AZITHROMYCIN 500 MG TAB PO SCH (09:00)
== END 2024-07-16 22:11 | disposition left against medical advice (07) ==
LOC: SUPCPDRO 15:29 → EC 15:29
DX: J44.1 Chronic obstructive pulmonary disease with (acute) exacerbation (principal); Z87.891 Personal history of nicotine dependence; Z86.79 Personal history of other diseases of the circulatory system; Z86.73 Personal history of transient ischemic attack (TIA), and cerebral infarction without residual deficits; Z53.29 Procedure and treatment not carried out because of patient's decision for other reasons; Z11.52 Encounter for screening for COVID-19; Z88.1 Allergy status to other antibiotic agents; Z88.8 Allergy status to other drugs, medicaments and biological substances
CPT/HCPCS: 36415; 93005; 85379; 80053; 83735; 84484; 85025; 85610; 85730; 87636; 73030; 71046; 71275; 99284; 96374; J2270; Q9967

== ENCOUNTER 2024-07-17 10:32 | Inpatient (IN) | payer OTHER, MEDICARE ==
--- NOTE | 2024-07-17 11:04 | ED ---
SOB HPI - General Chief Complaint: Shortness of Breath Stated Complaint: DAVID Time Seen by Provider: 07/17/24 11:03 Source: patient, EMS, RN notes reviewed, old records reviewed Mode of arrival: EMS Limitations: no limitations - History of Present Illness Initial Comments: 78-year-old male presented to the ER via EMS for evaluation of shortness of breath. Patient has a past medical history significant of COPD on 3 L nasal cannula oxygen at night, heart failure, hypertension, [id number] diabetes, PE, hyperlipidemia and CAD with stents. Patient reports for the past 2 days he has been having a left shoulder pain. He denies any radiation of this pain. Denies any injuries or traumas. Patient also reports worsening of shortness of breath. He denies any current chest pain, lightheadedness, dizziness, nausea vomiting, abdominal pain. Patient admits to a recent fall but denies any head injury or loss of consciousness. He is unsure when he fell but states he has a skin tear on his right forearm from this. Tetanus is up-to-date. No other complaints. Patient was here yesterday for similar complaint plaint. Admission was offered patient left AMA.Patient given 125 mg Solu-Medrol by EMS prior to arrival. - Related Data Home Medications Medication Instructions Recorded Confirmed Aspirin EC [Ecotrin Low Dose] 81 mg PO DAILY 06/22/18 07/10/24 Budesonide/Formoterol Fumarate 2 puff INHALATION RT-BID 06/22/18 07/10/24 [Symbicort 160-4.5 Mcg Inhaler] Ipratropium/Albuterol Sulfate 1 puff INHALATION RT-QID 06/22/18 07/10/24 [Combivent Respimat Inhaler] Metoprolol Tartrate [Lopressor] 25 mg PO BID 06/22/18 07/10/24 Clopidogrel Bisulfate [Plavix] 75 mg PO DAILY 07/01/18 07/10/24 Albuterol Inhaler [Ventolin Hfa 2 puff INHALATION RT-TID PRN 12/07/19 07/10/24 Inhaler] Albuterol Nebulized [Ventolin 2.5 mg INHALATION RT-QID 12/07/19 07/10/24 Nebulized] Loratadine [Claritin] 10 mg PO DAILY 12/07/19 07/10/24 Simvastatin [Zocor] 40 mg PO HS 12/07/19 07/10/24 Tiotropium 18 Mcg/Puff [Spiriva] 2 puff INHALATION RT-DAILY 12/07/19 07/10/24 Cholecalciferol [Vitamin D3 (25 25 mcg PO BID 03/17/24 07/10/24 Mcg = 1000 Iu)] Ferrous Sulfate [Iron (65 MG 325 mg PO W/LUNCH 04/06/24 07/10/24 Elemental)] Folic Acid 1 mg PO DAILY 04/06/24 07/10/24 Vitamin B-12 50mcg 50 mcg PO DAILY 04/06/24 07/10/24 Furosemide [Lasix] 20 mg PO DAILY 04/16/24 07/10/24 Azithromycin [Zithromax] 500 mg PO MOWEFR 06/09/24 07/10/24 Previous Rx's Medication Instructions Recorded Gabapentin [Neurontin] 200 mg PO TID #90 cap 06/11/24 Montelukast [Singulair] 10 mg PO HS #30 tab 06/16/24 Pantoprazole [Protonix] 40 mg PO AC-BRKFST #30 tab 06/16/24 Spironolactone [Aldactone] 25 mg PO DAILY #90 tab 06/24/24 Allergies Allergy/AdvReac Type Severity Reaction Status Date / Time fluticasone AdvReac Nausea Verified 07/17/24 13:58 [From [facility] In[facility]] levofloxacin [From Levaquin] AdvReac TENDON PAIN Verified 07/17/24 13:58 salmeterol AdvReac Nausea Verified 07/17/24 13:58 [From [facility] In[facility]] Review of Systems ROS Statement: Those systems with pertinent positive or pertinent negative responses have been documented in the HPI. ROS Other: All systems not noted in ROS Statement are negative. Past Medical History Past Medical History: Coronary Artery Disease (CAD), COPD, GERD/Reflux, Hyperlipidemia, Hypertension, Myocardial Infarction ([place]), Pulmonary Embolus (PE ), Renal Disease Additional Past Medical History / Comment(s): home O2 (3L [place]), bilateral PEs in 2003, history ETOH abuse - pt states he has never had withdrawal symptoms, chronic low back pain/sciatica/spurs/disc disease - much improved after back injections, past urinary retention, diverticulitis/benign colon polyps removed, nephrolithiasis - passed stones on his own, shingelles 16 years ago - R shoulder. Last Myocardial Infarction Date:: 2010 History of Any Multi-Drug Resistant Organisms: None Reported Past Surgical History: Heart Catheterization With Stent Additional Past Surgical History / Comment(s): back injections for pain, piece of metal removed from right eye, EGD, colonoscopy Past Anesthesia/Blood Transfusion Reactions: No Reported Reaction Additional Past Anesthesia/Blood Transfusion Reaction / Comment(s): claustrophobia Date of Last Stent Placement:: 2010 Past Psychological History: Anxiety, Depression, PTSD Smoking Status: Former smoker Past Alcohol Use History: None Reported Past Drug Use History: None Reported - Past Family History Mother Family Medical History: Cancer Additional Family Medical History / Comment(s): from breast cancer at age 53. Father Family Medical History: Coronary Artery Disease (CAD), Myocardial Infarction ([place]) Additional Family Medical History / Comment(s): 4 MIs/CABG. at age 72. General Exam Limitations: no limitations General appearance: alert, other (Patient is talking in short sentences and having conversational dyspnea) Respiratory exam: Present: decreased breath sounds (Throughout all lung henry) Cardiovascular Exam: Present: normal rhythm, tachycardia, normal heart sounds Extremities exam: Present: normal inspection, full ROM, normal capillary refill. Absent: tenderness, pedal edema, joint swelling, calf tenderness Neurological exam: Present: alert, oriented X3, CN II-XII intact Skin exam: Present: warm, dry, intact, normal color, other (Skin tear right forearm). Absent: rash Course Vital Signs 07/17/24 07/17/24 07/17/24 10:33 11:30 12:26 Temperature 97.8 F Pulse Rate 120 H 121 H 121 H Respiratory 22 24 22 Rate Blood Pressure 99/70 121/64 O2 Sat by Pulse 96 97 Oximetry 07/17/24 07/17/24 12:33 12:38 Temperature Pulse Rate 115 H 118 H Respiratory 22 25 H Rate Blood Pressure 118/77 O2 Sat by Pulse 92 L Oximetry - Reevaluation(s) Reevaluation #1: 07/17/24 13:11 Case discussed with Ifeanyi Lucio NP, who accepts admission. Reevaluation #2: Sepsis criteria met at 11:30 Infection identified 11:43 Antibiotics ordered at 12: 15 Patient did not receive sepsis fluid bolus given history of congestive heart failure. Patient received 500 normal saline bolus. Patient was started on maintenance fluids, lactated Ringer's 75 mL/h. Medical Decision Making - Medical Decision Making Was pt. sent in by a medical professional or institution (ELVIN Wilburn, SENIOR SAS PROGRAMMER, urgent care, hospital, or correction...) When possible be specific @ -No Did you speak to anyone other than the patient for history (EMS, parent, family, police, friend...)? What history was obtained from this source @ -No Did you review nursing and triage notes (agree or disagree)? Why? @ -I reviewed and agree with nursing and triage notes Were old charts reviewed (outside hosp., previous admission, EMS record, old EKG, old radiological studies, urgent care reports/EKG's, correction records)? Report findings @ -Yes, reviewed ER visit from yesterday 07-16-2024. Patient seen here for similar complaint. Workup completed showing a leukocytosis of 13.7. Elevated D-dimer at 2.95 for which CTA was ordered and negative for PE. Troponin elevated at 0.052. Viral swabs negative. Chest x-ray negative. Patient was offered admission but left AGAINST MEDICAL ADVICE. Differential Diagnosis (chest pain, altered mental status, abdominal pain women, abdominal pain men, vaginal bleeding, weakness, fever, dyspnea, syncope, headache, dizziness, GI bleed, back pain, seizure, CVA, palpatations, mental health, musculoskeletal)? @ -Differential Dyspnea:Coronary syndrome, arrhythmia, tamponade, asthma, COPD, pulmonary embolism, pneumonia, pneumothorax, pulmonary effusion, anaphylaxis, diabetic ketoacidosis, flailed chest, pulmonary contusion, diaphragmatic rupture, anemia, neuromuscular, this is not meant to be an all-inclusive list. EKG interpreted by me (3pts min.). @ -As above X-rays interpreted by me (1pt min.). @ -CXR interpreted me showing left basilar infiltrate. CT interpreted by me (1pt min.). @ -None done U/S interpreted by me (1pt. min.). @ -None done What testing was considered but not performed or refused? (CT, X-rays, U/S, labs)? Why? @ -None What meds were considered but not given or refused? Why? @ -None Did you discuss the management of the patient with other professionals (professionals i.e. , PA, SENIOR SAS PROGRAMMER, lab, RT, psych nurse, social media senior associate, clinical resource coordinator, teacher, sergeant of officers, family service caseworker)? Give summary @ -Yes, case discussed with Ifeanyi maher, who accepts admission. Was smoking cessation discussed for >3mins.? @ -No Was critical care preformed (if so, how long)? @ -No Were there social determinants of health that impacted care today? How? (Homelessness, low income, unemployed, alcoholism, drug addiction, transportation, low edu. Level, literacy, decrease access to med. care, skilled nursing, rehab)? @ -No Was there de-escalation of care discussed even if they declined (Discuss DNR or withdrawal of care, Hospice)? DNR status @ -No What co-morbidities impacted this encounter? (DM, HTN, Smoking, COPD, CAD, Cancer, CVA, ARF, Chemo, Hep., AIDS, mental health diagnosis, sleep apnea, morbid obesity)? @ -COPD, heart failure, diabetes mellitus, CAD, GERD, history of [place] and PE, renal disease. Was patient admitted / discharged? Hospital course, mention meds given and route, prescriptions, significant lab abnormalities, going to OR and other pertinent info. @ -Admitted. 78-year-old male presented the ER via EMS for evaluation of dyspnea. Patient seen here yesterday for similar complaint. Admission was offe red but patient left AGAINST MEDICAL ADVICE. Upon arrival, history and physical exam completed. Patient is tachycardic at 120 bpm with oxygen saturations 96% on 4 L nasal cannula oxygen. Blood pressure 99/70. Patient with conversational dyspnea and talking in short phrases. Laboratory studies showed a leukocytosis of 13.8 with a left shift. Lactic 1.4. Troponin elevated at 0.054. EKG showing a sinus tachycardia. ST depression inferior leads. Chest x-ray concerning of a left basilar infiltrate. Patient met sepsis criteria at 11: 30 and infection identified 11: 45. Rocephin and azithromycin ordered at 12: 15. Blood cultures obtained. Patient is also influenza A positive for which Tamiflu was ordered. Patient did not receive IV fluid bolus given history of heart failure he did receive 500 mL normal saline bolus and started on maintenance fluids at LR 75ml/hr. Admission considered and accepted by [facility] physicians, for further evaluation and treatment of sepsis and pneumonia. Patient agreeable. Case discussed with ED attending, Dr. Jean. Undiagnosed new problem with uncertain prognosis? @ -No Drug Therapy requiring intensive monitoring for toxicity (Heparin, Nitro, Insulin, Cardizem)? @ -No Were any procedures done? @ -No Diagnosis/symptom? @ -Sepsis/pneumonia/elevated troponin/influenza A/acute viral sinusitis Acute, or Chronic, or Acute on Chronic? @ -Acute Uncomplicated (without systemic symptoms) or Complicated (systemic symptoms)? @ -Complicated Side effects of treatment? @ -No Exacerbation, Progression, or Severe Exacerbation? @ -No Poses a threat to life or bodily function? How? (Chest pain, [place], [place], pneumonia, PE, COPD, DKA, ARF, appy, cholecystitis, CVA, Diverticulitis, Homicidal, Suicidal, threat to staff... and all critical care pts) @ -Yes, sepsis can lead to endorgan function - Lab Data Result diagrams: 07/17/24 11:17 07/17/24 11:17 - EKG Data -: EKG Interpreted by Me EKG Comments: EKG taken at 10: 37 showing a sinus tachycardia mild ST depression in inferior leads. No T wave inversions. Ventricular rate 117, IN interval 164, QRS duration 90, QT/QTc 307/377 - Radiology Data Radiology results: report reviewed, image reviewed Disposition Clinical Impression: Sepsis, Pneumonia, Influenza A, Elevated troponin Disposition: ADMITTED IP TO THIS HOSP Condition: Stable Time of Disposition: 13:17
[2024-07-17 11:24] LABS: Basophils # (A) 0.1 k/uL (0-0.2); Basophils % (A) 0 %; Eosinophils % (A) 0 %; HGB 12.3 gm/dL (13.0-17.5); Lymphocytes % (A) 7 %; MCH 28.5 pg (25.0-35.0); MCHC 33.2 g/dL (31.0-37.0); MCV 85.8 fL (80.0-100.0); Mean Platelet Volume 6.6; Monocytes # (A) 0.9 k/uL (0-1.0); Monocytes % (A) 6 %; Neutrophils # (A) 11.6 k/uL (1.3-7.7); Neutrophils % (A) 84 %; Platelet Count 261 k/uL (150-450); RBC 4.32 m/uL (4.30-5.90); RDW 15.1 % (11.5-15.5); WBC 13.8 k/uL (3.8-10.6)
[2024-07-17 11:34] LABS: African American GFR (CKD) >90 (>60 ml/min/1.73 sqM); Anion Gap 2 mmol/L; Blood Urea Nitrogen 19 mg/dL (9-20); Calcium 8.8 mg/dL (8.4-10.2); Carbon Dioxide 38 mmol/L (22-30); Chloride 87 mmol/L (98-107); Glucose 118 mg/dL (74-99); Magnesium 1.8 mg/dL (1.6-2.3); Non-African American GFR(CKD) 89 (>60 ml/min/1.73 sqM); Potassium 4.3 mmol/L (3.5-5.1); Sodium 127 mmol/L (137-145)
[2024-07-17 11:35] LABS: ALT 32 U/L (4-49); AST 21 U/L (17-59); Albumin 3.6 g/dL (3.5-5.0); Alkaline Phosphatase 80 U/L (38-126); Total Bilirubin 1.5 mg/dL (0.2-1.3); Total Protein 5.9 g/dL (6.3-8.2)
[2024-07-17 11:43] LABS: NT-Pro-B-Type Natriuretic Pept 541 pg/mL
[2024-07-17 11:45] LABS: INR 0.9 (<1.2); Prothrombin Time 10.2 sec (10.0-12.5)
--- NOTE | 2024-07-17 11:46 | XR ---
EXAMINATION TYPE: XR chest 1V DATE OF EXAM: 07/17/2024 COMPARISON: Chest x-ray one day earlier. CLINICAL INDICATION: Male, 78 years old with history of difficulty breathing; TECHNIQUE: Single frontal view of the chest is obtained. FINDINGS: There is more prominent left basilar opacity. Right lung is clear. The cardiac silhouette size is stable linear within normal limits. The osseous structures are intact. IMPRESSION: Worsening left basilar acute infiltrate and/or atelectasis. [facility], , 07/17/2024 11:44 AM
[2024-07-17 11:48] LABS: Partial Thromboplastin Time 19.4 sec (22.0-30.0)
[2024-07-17 11:59] LABS: Influenza A Detected (Not Detectd); Influenza B Not Detected (Not Detectd); RSV Not Detected (Not Detectd)
[2024-07-17] MEDS: IPRATROPIUM-ALBUTEROL 3 ML NEB INHALATION STA (12:26)
[2024-07-17] MEDS ORDERED: NALOXONE 0.4 MG/ML 1 ML VIAL IV PRN (12:34)
[2024-07-17] MEDS: SODIUM CHLORIDE 0.9% 500 ML 500 ML IV ONE (12:52)
[2024-07-17] MEDS: ACETAMINOPHEN TAB 325 MG TAB PO STA (12:57)
[2024-07-17] MEDS: OSELTAMIVIR 75 MG CAP PO SCH (12:58)
[2024-07-17] MEDS: AZITHROMYCIN 500 MG TAB PO SCH (12:59)
[2024-07-17] MEDS: LACTATED RINGERS 1,000 ML IV SCH (13:01)
--- NOTE | 2024-07-17 14:36 | P.HPIM ---
History of Present Illness H&P Date: 07/17/24 78 year old M with PMH COPD on 3 L mostly at night, HFpEF, CAD with multiple stents, hypertension, None insulin-dependent diabetes mellitus, history of PE, hyperlipidemia presenting with worsening shortness of breath. Breathing progressively getting worse since previous discharge. Reports cough of white sputum. Denies fever or chills, LE edema, chest pain, palpitations, changes in urination or bowel habits. In the ED he underwent extensive evaluation. BP 99/70, HR 120, T 97.8F, RR 20, 96% on 4L NC. CBC, Coag panel, CMP significant for WBC 13.8, Hg 12.3, Hct 37, APTT 19.4, Na 127, Cl 87, bicarb 38, glu 118, T. Bili 1.5. Lactic acid 1.4. Mag 1.8. Trop 0.054. Flu +. EKG sinus tachycardia with ST depression. CXR L basilar infiltrate. Patient is admitted for further workup and management. General: non toxic, no distress, appears at stated age Derm: warm, dry Head: atraumatic, normocephalic, symmetric Mouth: no lip lesion, mucus membranes moist Cardiovascular: S1S2 tacy, no murmur Lungs: Expiratory wheezing bilaterally, no rales , no accessory muscle use Ext: no gross muscle atrophy, no edema, no contractures Neuro: no focal neuro deficits Psych: Alert and oriented. Based on my assessment of this patient, this patient meets a high complexity level of care. Sepsis and Acute on chronic hypoxic hypercarbic respiratory failure secondary to PNA + Flu: Tamiflu 75 mg PO BID. Rocephin 2g IV QD + Azithromycin 500 mg PO QD. Obtain BCx, Sputum Cx, Legionella Ag. Obtain pro-jodi. Symbicort 2 INH BID. DuoNeb QID scheduled and PRN SOB/wheezing. SoluMedrol 60 mg IV Q6H. Pulmonary consult. Troponin elevation likely Type II NSTEMI due to above: Trend Trop/EKG. Echo ordered. Telemetry monitoring. Hyponatremia: Chronically low. Trial of LR at 75 cc/hr. HFpEF: Not in acute exacerbation. CAD with multiple stents: ASA 81 mg PO QD. Plavix 75 mg PO QD. Metoprolol 25 mg PO BID. Simvastatin 40 mg PO QHS. Hypertension: Metoprolol as above. Aldactone 25 mg PO QD. Diabetes mellitus: ISS with Accuchecks ACHS along with hypoglycemic precautions. Hyperlipidemia: Simvastatin as above. CODE STATUS: FULL CODE. DVT Prophylaxis: Lovenox GI Prophylaxis: Protonix Designated medical POA if patient is not able to make medical decisions for themselves: I have reviewed the following sephora operations consultant notes: ED note. I have reviewed the results of the following tests: As above. I have ordered the following tests: As above. I have discussed the care of this patient with the following independent histor sudeep: I have independently interpreted the following test below: EKG I have discussed the management of this patient with the following physician: Past Medical History Past Medical History: Coronary Artery Disease (CAD), COPD, GERD/Reflux, Hyperlipidemia, Hypertension, Myocardial Infarction ([place]), Pulmonary Embolus (PE), Renal Disease Additional Past Medical History / Comment(s): home O2 (3L [place]), bilateral PEs in 2003, history ETOH abuse - pt states he has never had withdrawal symptoms, chronic low back pain/sciatica/spurs/disc disease - much improved after back injections, past urinary retention, diverticulitis/benign colon polyps removed, nephrolithiasis - passed stones on his own, shingelles 16 years ago - R shoulder . Last Myocardial Infarction Date:: 2010 History of Any Multi-Drug Resistant Organisms: None Reported Past Surgical History: Heart Catheterization With Stent Additional Past Surgical History / Comment(s): back injections for pain, piece of metal removed from right eye, EGD, colonoscopy Past Anesthesia/Blood Transfusion Reactions: No Reported Reaction Additional Past Anesthesia/Blood Transfusion Reaction / Comment(s): claustrophobia Date of Last Stent Placement:: 2010 Past Psychological History: Anxiety, Depression, PTSD Smoking Status: Former smoker Past Alcohol Use History: None Reported Past Drug Use History: None Reported - Past Family History Mother Family Medical History: Cancer Additional Family Medical History / Comment(s): from breast cancer at age 53. Father Family Medical History: Coronary Artery Disease (CAD), Myocardial Infarction ([place]) Additional Family Medical History / Comment(s): 4 MIs/CABG. at age 72. Medications and Allergies Home Medications Medication Instructions Recorded Confirmed Type Aspirin EC [Ecotrin Low Dose] 81 mg PO DAILY 06/22/18 07/10/24 History Budesonide/Formoterol Fumarate 2 puff INHALATION RT-BID 06/22/18 07/10/24 History [Symbicort 160-4.5 Mcg Inhaler] Ipratropium/Albuterol Sulfate 1 puff INHALATION RT-QID 06/22/18 07/10/24 History [Combivent Respimat Inhaler] Metoprolol Tartrate [Lopressor] 25 mg PO BID 06/22/18 07/10/24 History Clopidogrel Bisulfate [Plavix] 75 mg PO DAILY 07/01/18 07/10/24 History Albuterol Inhaler [Ventolin Hfa 2 puff INHALATION RT-TID PRN 12/07/19 07/10/24 History Inhaler] Albuterol Nebulized [Ventolin 2.5 mg INHALATION RT-QID 12/07/19 07/10/24 History Nebulized] Loratadine [Claritin] 10 mg PO DAILY 12/07/19 07/10/24 History Simvastatin [Zocor] 40 mg PO HS 12/07/19 07/10/24 History Tiotropium 18 Mcg/Puff [Spiriva] 2 puff INHALATION RT-DAILY 12/07/19 07/10/24 History Cholecalciferol [Vitamin D3 (25 25 mcg PO BID 03/17/24 07/10/24 History Mcg = 1000 Iu)] Ferrous Sulfate [Iron (65 MG 325 mg PO W/LUNCH 04/06/24 07/10/24 History Elemental)] Folic Acid 1 mg PO DAILY 04/06/24 07/10/24 History Vitamin B-12 50mcg 50 mcg PO DAILY 04/06/24 07/10/24 History Furosemide [Lasix] 20 mg PO DAILY 04/16/24 07/10/24 History Azithromycin [Zithromax] 500 mg PO MOWEFR 06/09/24 07/10/24 History Gabapentin [Neurontin] 200 mg PO TID #90 cap 06/11/24 07/10/24 Rx Montelukast [Singulair] 10 mg PO HS #30 tab 06/16/24 07/10/24 Rx Pantoprazole [Protonix] 40 mg PO AC-BRKFST #30 tab 06/16/24 07/10/24 Rx Spironolactone [Aldactone] 25 mg PO DAILY #90 tab 06/24/24 07/10/24 Rx Allergies Allergy/AdvReac Type Severity Reaction Status Date / Time fluticasone AdvReac Nausea Verified 07/17/24 13:58 [From Wix[facility] Inhub] levofloxacin [From Levaquin] AdvReac TENDON PAIN Verified 07/17/24 13:58 salmeterol AdvReac Nausea Verified 07/17/24 13:58 [facility] Physical Exam Vitals: Vital Signs Temp Pulse Resp BP Pulse Ox 07/17/24 12:38 118 H 25 H 118/77 92 L 07/17/24 12:33 115 H 22 07/17/24 12:26 121 H 22 07/17/24 11:30 121 H 24 121/64 97 07/17/24 10:33 97.8 F 120 H 22 99/70 96 Intake and Output 07/16/24 07/17/24 07/17/24 22:59 06:59 14:59 Other: Weight 116.12 kg Results CBC & Chem 7: 07/17/24 11:17 07/17/24 11:17 Labs: Abnormal Lab Results - Last 24 Hours (Table) 07/17/24 07/17/24 07/17/24 Range/Units 11:17 11:17 11:17 WBC 13.8 H (3.8-10.6) k/uL Hgb 12.3 L (13.0-17.5) gm/dL Hct 37.0 L (39.0-53.0) % Neutrophils # 11.6 H (1.3-7.7) k/uL APTT 19.4 L (22.0-30.0) sec Sodium 127 L (137-145) mmol/L Chloride 87 L (98-107) mmol/L Carbon Dioxide 38 H (22-30) mmol/L Glucose 118 H (74-99) mg/dL Total Bilirubin 1.5 H (0.2-1.3) mg/dL Troponin I (0.000-0.034) ng/mL Total Protein 5.9 L (6.3-8.2) g/dL Influenza Type A (PCR) (Not Detectd) 07/17/24 07/17/24 Range/Units 11:17 11:17 WBC (3.8-10.6) k/uL Hgb (13.0-17.5) gm/dL Hct (39.0-53.0) % Neutrophils # (1.3-7.7) k/uL APTT (22.0-30.0) sec Sodium (137-145) mmol/L Chloride (98-107) mmol/L Carbon Dioxide (22-30) mmol/L Glucose (74-99) mg/dL Total Bilirubin (0.2-1.3) mg/dL Troponin I 0.054 H* (0.000-0.034) ng/mL Total Protein (6.3-8.2) g/dL Influenza Type A (PCR) Detected A (Not Detectd)
[2024-07-17] MEDS: IPRATROPIUM-ALBUTEROL 3 ML NEB INHALATION SCH (15:01)
[2024-07-17] MEDS: methylPREDNISolone SOD SUCCI 125 MG/2 ML VIAL IV SCH (17:10)
[2024-07-17] MEDS: GABAPENTIN 100 MG CAP PO SCH (17:10)
[2024-07-17] MEDS: SYMBICORT 160-4.5 MCG INHALER INHALATION SCH (20:01)
[2024-07-17] MEDS: IPRATROPIUM-ALBUTEROL 3 ML NEB INHALATION PRN (21:06)
[2024-07-17] MEDS: METOPROLOL TARTRATE 25 MG TAB PO SCH (21:32)
[2024-07-17] MEDS: ATORVASTATIN 20 MG TAB PO SCH (21:32)
[2024-07-17] MEDS: MONTELUKAST 10 MG TAB PO SCH (21:32)
[2024-07-18] MEDS: PANTOPRAZOLE 40 MG TABLET PO SCH (06:52)
[2024-07-18 09:34] LABS: African American GFR (CKD) >90 (>60 ml/min/1.73 sqM); Anion Gap 7 mmol/L; Blood Urea Nitrogen 16 mg/dL (9-20); Carbon Dioxide 32 mmol/L (22-30); Chloride 88 mmol/L (98-107); Glucose 144 mg/dL (74-99); Non-African American GFR(CKD) >90 (>60 ml/min/1.73 sqM); Potassium 4.5 mmol/L (3.5-5.1); Sodium 127 mmol/L (137-145)
[2024-07-18] MEDS: LORATADINE 10 MG TAB PO SCH (09:35)
[2024-07-18] MEDS: FERROUS SULFATE 325 MG TAB PO SCH (09:35)
[2024-07-18] MEDS: CLOPIDOGREL 75 MG TAB PO SCH (09:35)
[2024-07-18] MEDS: SPIRONOLACTONE 25 MG TAB PO SCH (09:35)
[2024-07-18] MEDS: FUROSEMIDE 20 MG TAB PO SCH (09:35)
[2024-07-18] MEDS: ENOXAPARIN 40 MG/0.4 ML SYRINGE SQ SCH (09:36)
[2024-07-18] MEDS: ASPIRIN 81 MG PO SCH (09:36)
[2024-07-18] MEDS: methylPREDNISolone SOD SUCCI 125 MG/2 ML VIAL IV SCH (09:50)
[2024-07-18 10:05] LABS: Basophils % (A) 0 %; Eosinophils % (A) 0 %; HCT 36.1 % (39.0-53.0); HGB 11.8 gm/dL (13.0-17.5); Lymphocytes # (A) 0.4 k/uL (1.0-4.8); Lymphocytes % (A) 4 %; MCH 28.2 pg (25.0-35.0); MCHC 32.6 g/dL (31.0-37.0); MCV 86.6 fL (80.0-100.0); Mean Platelet Volume 6.9; Monocytes # (A) 0.3 k/uL (0-1.0); Monocytes % (A) 3 %; Neutrophils # (A) 9.1 k/uL (1.3-7.7); Neutrophils % (A) 92 %; Platelet Count 245 k/uL (150-450); RBC 4.17 m/uL (4.30-5.90); RDW 15.2 % (11.5-15.5); WBC 9.9 k/uL (3.8-10.6)
--- NOTE | 2024-07-18 14:26 | P.PN ---
Subjective Progress Note Date: 07/18/24 Hospital Course: A 78-year-old male with PMH of chronic hypoxic respiratory failure secondary to COPD on home oxygen 3 L at night, HTN, HLD, PAD, heart failure with preserved ejection fraction, CAD with multiple stents, type II DM not on insulin, history of PE, who presented to the ER with shortness of breath. Breathing progressively getting worse since previous discharge. Reports cough of white sputum. Denies fever or chills, LE edema, chest pain, palpitations, changes in urination or bowel habits. In the ED he underwent extensive evaluation. BP 99/70, HR 120, T 97.8F, RR 20, 96% on 4L NC. CBC, Coag panel, CMP significant for WBC 13.8, Hg 12.3, Hct 37, APTT 19.4, Na 127, Cl 87, bicarb 38, glu 118, T. Bili 1.5. Lactic acid 1.4. Mag 1.8. Trop 0.054. Flu +. EKG sinus tachycardia with ST depression. CXR L basilar infiltrate. Patient is admitted for further workup and management. Started on Tamiflu, Rocephin, azithromycin, sputum cultures ordered, Legionella antigen ordered. Procalcitonin -0.14, abx stopped, solumedrol switched to prednisone 30 mg PO daily Pertinent Imaging: No new imaging Subjective: Patient was seen and examined at bedside, complaining of ongoing shortness of breath, he also requested his diet to be changed to regular as he knows how to calculate his sodium. We extensively discussed the importance of diet compliance given his chronic medical conditions, I educated patient on risks of not following the diet, he excepted and still elected to go with regular diet Pertinent positives and negatives as discussed above, a complete review of systems was performed and all other systems are negative. Vitals Signs Reviewed. General: [nontoxic], [no distress], [appears at stated age] Derm: [warm], [dry] Head: [atraumatic], [normocephalic], [symmetric] Eyes: [EOMI], [no lid lag], [anicteric sclera] Mouth: [no lip lesion], [mucus membranes moist] Cardiovascular: [S1S2 reg], [no murmur] Lungs: [CTA bilateral], bilateral end expiratory wheezes] , [no accessory muscle use] Abdominal: [soft], [ nontender to palpation], [no guarding], [no appreciable organomegaly] Ext: [no gross muscle atrophy], [no edema], [no contractures] Neuro: [ CN II-XI grossly intact], [no focal neuro deficits] Psych: [Alert], [oriented], [appropriate affect] Data Reviewed Today: Pertinent Labs: WBC normal, hemoglobin 11.8, stable, normal platelet count, sodium 127, potassium 4.5, bicarb 32, creatinine 0.62, glucose 144 Assessment and Plan: Sepsis and Acute on chronic hypoxic hypercarbic respiratory failure secondary to influenza A -Continue with Tamiflu 75 mg PO BID. -Procalcitonin negative, discontinue Rocephin 2g IV QD + Azithromycin 500 mg PO QD -Follow-up BCx, Sputum Cx, Legionella Ag. -Symbicort 2 INH BID. DuoNeb QID scheduled and PRN SOB/wheezing. Steroids were adjusted by pulmonology, now on prednisone 30 daily -Pulmonary consult. -Patient states that he would like to be discharged to [facility], PT OT consult placed -overall prognosis is poor Troponin elevation likely Type II NSTEMI due to above: Trend Trop/EKG. Echo ordered. Telemetry monitoring. Hyponatremia: Chronically low. Stable, LR discontinued HFpEF: Not in acute exacerbation. CAD with multiple stents: ASA 81 mg PO QD. Plavix 75 mg PO QD. Metoprolol 25 mg PO BID. Simvastatin 40 mg PO QHS. Hypertension: Metoprolol as above. Aldactone 25 mg PO QD. Diabetes mellitus: ISS with Accuchecks ACHS along with hypoglycemic precautions. Hyperlipidemia: Simvastatin as above. DVT ppx: Lovenox Code status: Full code Anticipated discharge place: [facility] Anticipated discharge time: 24 to 48 hours Objective - Vital Signs Vital signs: Vital Signs Temp 97.7 F 07/18/24 07:59 Pulse 96 07/18/24 08:37 Resp 19 07/18/24 07:59 BP 114/65 07/18/24 07:59 Pulse Ox 100 07/18/24 08:21 FiO2 Intake & Output 07/17/24 07/18/24 07/18/24 18:59 06:59 18:59 Weight 116.12 kg 109.5 kg Other: Voiding Method Urinal # Voids 2 1 # Bowel Movements 1 - Labs CBC & Chem 7: 07/18/24 08:49 07/18/24 08:49 Labs: Abnormal Lab Results - Last 24 Hours (Table) 07/17/24 07/18/24 07/18/24 Range/Units 14:21 08:49 08:49 RBC 4.17 L (4.30-5.90) m/uL Hgb 11.8 L (13.0-17.5) gm/dL Hct 36.1 L (39.0-53.0) % Neutrophils # 9.1 H (1.3-7.7) k/uL Lymphocytes # 0.4 L (1.0-4.8) k/uL Sodium 127 L (137-145) mmol/L Chloride 88 L (98-107) mmol/L Carbon Dioxide 32 H (22-30) mmol/L Creatinine 0.62 L (0.66-1.25) mg/dL Glucose 144 H (74-99) mg/dL Troponin I 0.045 H* (0.000-0.034) ng/mL
--- NOTE | 2024-07-18 15:25 | P.CNPUL ---
History of Present Illness Consult date: 07/18/24 Requesting physician: Nuvia Allen Reason for consult: dyspnea, COPD Chief complaint: Shortness of breath, cough, congestion History of present illness: This is a 78-year-old patient with a known history of multiple admissions to the hospital. Since the first of the year he has been in the emergency room 12 times and has been admitted 8 of those times. He does have oxygen dependent chronic obstructive pulmonary disease, congestive heart failure, hypertension, diabetes mellitus, PE, hyperlipidemia, coronary disease with stent placement. He presented here to the emergency room again on July 17, 2024 with complaints of left shoulder pain and shortness of breath. Left basilar infiltrate and/or atelectasis. White count 9.9. Hemoglobin 11.8. Platelets 245. Sodium 127. Potassium 4.5. Bicarb 32. BUN 16. Creatinine 0.62. Glucose 144. Procalcitonin was negative at 0.14. Viral screen was positive for influenza A. Troponin 0.054, 0.045, 0.033. proBNP 541. He is seen today in consultation on the regular medical floor. He is sitting up in a chair at the bedside. He is complaining significantly about his diet restrictions. He is currently on a heart healthy diet. He is maintaining good O2 saturations in the high 90s on 3 L/min per nasal cannula. He is afebrile. Hemodynamically stable. Review of Systems REVIEW OF SYSTEMS: CONSTITUTIONAL: Denies any recent significant weight loss or weight gain. EYES: Denies change in vision. EARS, NOSE, MOUTH, THROAT: Denies headaches, denies sore throat. CARDIOVASCULAR: Denies chest pain, palpitations or syncopal episodes. RESPIRATORY: Positive for shortness of breath, cough, congestion no hemoptysis. GASTROINTESTINAL: Denies change in appetite, denies abdominal pain GENITOURINARY: Denies hematuria, denies infections. MUSKULOSKELETAL: Positive for left shoulder pain. Denies pain, denies swelling. INTEGUMENTARY: Denies rash, denies eczema. NEUROLOGICAL: Denies recent memory loss, no recent seizure activity. PSYCHIATRIC: Denies anxiety, denies depression. HEMATOLOGIC/LYMPHATIC: Denies anemia, denies enlarged lymph nodes. Past Medical History Past Medical History: Coronary Artery Disease (CAD), COPD, GERD/Reflux, Hyperlipidemia, Hypertension, Myocardial Infarction (SD), Pulmonary Embolus (PE), Renal Disease Additional Past Medical History / Comment(s): home O2 (3L NC HS), bilateral PEs in 2003, history ETOH abuse - pt states he has never had withdrawal symptoms, chronic low back pain/sciatica/spurs/disc disease - much improved after back injections, past urinary retention, diverticulitis/benign colon polyps removed, nephrolithiasis - passed stones on his own, shingelles 16 years ago - R shoulder. Last Myocardial Infarction Date:: 2010 History of Any Multi-Drug Resistant Organisms: None Reported Past Surgical History: Heart Catheterization With Stent Additional Past Surgical History / Comment(s): back injections for pain, piece of metal removed from right eye, EGD, colonoscopy Past Anesthesia/Blood Transfusion Reactions: No Reported Reaction Additional Past Anesthesia/Blood Transfusion Reaction / Comment(s): claustrophobia Date of Last Stent Placement:: 2010 Past Psychological History: Anxiety, Depression, PTSD Additional Psychological History / Comment(s): Pt states he lives alone, spouse and children are . Smoking Status: Former smoker Past Alcohol Use History: None Reported Additional Past Alcohol Use History / Comment(s): Pt started smoking in 1965 and quit in 2015. Past Drug Use History: None Reported - Past Family History Mother Family Medical History: Cancer Additional Family Medical History / Comment(s): from breast cancer at age 53. Father Family Medical History: Coronary Artery Disease (CAD), Myocardial Infarction (SD) Additional Family Medical History / Comment(s): 4 MIs/CABG. at age 72. Medications and Allergies Home Medications Medication Instructions Recorded Confirmed Type Aspirin EC [Ecotrin Low Dose] 81 mg PO DAILY 06/22/18 07/17/24 History Budesonide/Formoterol Fumarate 2 puff INHALATION RT-BID 06/22/18 07/17/24 History [Symbicort 160-4.5 Mcg Inhaler] Ipratropium/Albuterol Sulfate 1 puff INHALATION RT-QID 06/22/18 07/17/24 History [Combivent Respimat Inhaler] Metoprolol Tartrate [Lopressor] 25 mg PO BID 06/22/18 07/17/24 History Clopidogrel Bisulfate [Plavix] 75 mg PO DAILY 07/01/18 07/17/24 History Albuterol Inhaler [Ventolin Hfa 2 puff INHALATION RT-TID PRN 12/07/19 07/17/24 History Inhaler] Albuterol Nebulized [Ventolin 2.5 mg INHALATION RT-QID 12/07/19 07/17/24 History Nebulized] Loratadine [Claritin] 10 mg PO DAILY 12/07/19 07/17/24 History Simvastatin [Zocor] 40 mg PO HS 12/07/19 07/17/24 History Tiotropium 18 Mcg/Puff [Spiriva] 2 puff INHALATION RT-DAILY 12/07/19 07/17/24 History Cholecalciferol [Vitamin D3 (25 25 mcg PO BID 03/17/24 07/17/24 History Mcg = 1000 Iu)] Ferrous Sulfate [Iron (65 MG 325 mg PO W/LUNCH 04/06/24 07/17/24 History Elemental)] Folic Acid 1 mg PO DAILY 04/06/24 07/17/24 History Vitamin B-12 50mcg 50 mcg PO DAILY 04/06/24 07/17/24 History Furosemide [Lasix] 20 mg PO DAILY 04/16/24 07/17/24 History Azithromycin [Zithromax] 500 mg PO MOWEFR 06/09/24 07/17/24 History Gabapentin [Neurontin] 200 mg PO TID #90 cap 06/11/24 07/17/24 Rx Montelukast [Singulair] 10 mg PO HS #30 tab 06/16/24 07/17/24 Rx Pantoprazole [Protonix] 40 mg PO AC-BRKFST #30 tab 06/16/24 07/17/24 Rx Spironolactone [Aldactone] 25 mg PO DAILY #90 tab 06/24/24 07/17/24 Rx Allergies Allergy/AdvReac Type Severity Reaction Status Date / Time fluticasone AdvReac Nausea Verified 07/17/24 13:58 [From Wixela Inhub] levofloxacin [From Levaquin] AdvReac TENDON PAIN Verified 07/17/24 13:58 salmeterol AdvReac Nausea Verified 07/17/24 13:58 [From Wixela Inhub] Physical Exam Vitals: Vital Signs Temp Pulse Pulse Resp BP BP BP 07/18/24 14:19 97.8 F 83 18 124/62 07/18/24 08:37 96 07/18/24 08:21 100 07/18/24 07:59 97.7 F 93 19 114/65 07/18/24 01:46 97.6 F 74 17 134/69 07/17/24 21:19 98 07/17/24 21:09 95 07/17/24 20:30 98.7 F 93 20 113/70 07/17/24 19:10 101 H 20 127/67 07/17/24 16:00 98.2 F 100 20 114/90 Pulse Ox 07/18/24 14:19 97 07/18/24 08:37 07/18/24 08:21 100 07/18/24 07:59 99 07/18/24 01:46 95 07/17/24 21:19 07/17/24 21:09 07/17/24 20:30 95 07/17/24 19:10 07/17/24 16:00 91 L Intake and Output 07/18/24 07/18/24 07/18/24 06:59 14:59 22:59 Other: # Voids 2 1 # Bowel Movements 1 Weight 109.5 kg GENERAL EXAM: Alert, obese, disheveled 78-year-old male, on 3 L nasal cannula, up in a chair, comfortable in no apparent distress. HEAD: Normocephalic. EYES: Normal reaction of pupils, equal size. NOSE: Clear with pink turbinates. THROAT: No erythema or exudates. NECK: No masses, no JVD. CHEST: No chest wall deformity. LUNGS: Equal air entry with crackles in the left lung base. CVS: S1 and S2 normal with no audible murmur, regular rhythm. ABDOMEN: No hepatosplenomegaly, normal bowel sounds, no guarding or rigidity. SPINE: No scoliosis or deformity SKIN: No rashes CENTRAL NERVOUS SYSTEM: No focal deficits, tone is normal in all 4 extremities. EXTREMITIES: There is 1+ peripheral edema. No clubbing, no cyanosis. Peripheral pulses are intact. Results - Laboratory Findings CBC and BMP: 07/18/24 08:49 07/18/24 08:49 PT/INR, D-dimer PT 10.2 sec (10.0-12.5) 07/17/24 11:17 INR 0.9 (<1.2) 07/17/24 11:17 Abnormal lab findings: Abnormal Labs 07/17/24 07/17/2407/17/25 11:17 11:17 11:17 WBC 13.8 H RBC Hgb 12.3 L Hct 37.0 L Neutrophils # 11.6 H Lymphocytes # APTT 19.4 L Sodium 127 L Chloride 87 L Carbon Dioxide 38 H Creatinine Glucose 118 H Total Bilirubin 1.5 H Troponin I Total Protein 5.9 L Influenza Type A (PCR) 07/17/24 07/17/24 07/17/24 11:17 11:17 14:21 WBC RBC Hgb Hct Neutrophils # Lymphocytes # APTT Sodium Chloride Carbon Dioxide Creatinine Glucose Total Bilirubin Troponin I 0.054 H* 0.045 H* Total Protein Influenza Type A (PCR) Detected A 07/18/24 07/18/24 08:49 08:49 WBC RBC 4.17 L Hgb 11.8 L Hct 36.1 L Neutrophils # 9.1 H Lymphocytes # 0.4 L APTT Sodium 127 L Chloride 88 L Carbon Dioxide 32 H Creatinine 0.62 L Glucose 144 H Total Bilirubin Troponin I Total Protein Influenza Type A (PCR) - Diagnostic Findings Chest x-ray: image reviewed Assessment and Plan Assessment: Acute on chronic hypoxemic respiratory failure secondary to an acute exa cerbation of chronic obstructive pulmonary disease with left lower lobe atelectasis. Procalcitonin negative Acute exacerbation of chronic obstructive pulmonary disease located by influenza A infection Acute influenza A Former chronic tobacco dependence History of Stenotrophomonas maltophilia positive sputum in April 2024 Severe chronic obstructive pulmonary disease FEV1 value of 29% of predicted. On home O2. Normally maintained on Symbicort, Spiriva, albuterol and DuoNebs [id number] Hyponatremia Obesity with a BMI of 40.2 kg/m Hyperlipidemia Hypertension Coronary artery disease Peripheral arterial disease Chronic lower extremity edema bilaterally Plan: The patient was seen and evaluated Chest x-ray, labs and medications reviewed Procalcitonin negative Antibiotics discontinued Continued on Tamiflu Continued on DuoNeb and elations, Symbicort, Singulair Initiated on a prednisone taper Continued on oral diuretics Lovenox for DVT prophylaxis Social work consult due to multiple ER visits/hospital admissions We will continue to follow and make further recommendations based on his clinical status I have personally seen and examined the patient, performed the documentation and the assessment and plan as written. Number of minutes spent on the visit: 20 Dictation was produced using Jalbum dictation software. Please excuse any grammatical, word or spelling errors. Time with Patient: Greater than 30
--- NOTE | 2024-07-18 17:15 | CA ---
Transthoracic Echo Report Name: Tiburcio Francisco Age: 78 Gender: M : 1945 Exam Date: 07/18/2024 13:38 Exam Location: [place] [facility] Ht (in): 65 Wt (lb): 256 Ordering Physician: Christi Alberto MD Attending/Referring Phys: Bioinformatics Developer Dania Nuñez RDCS Procedure CPT: Indications: trop Cardiac Hx: Limited for LVEF and valves. last prior 04/11/24. Hx of stent Technical Quality: Technically difficult study Contrast 1: Definity Total Dose (mL): 3 Contrast 2: Total Dose (mL): MEASUREMENTS (Male / Female) Normal Values 2D ECHO LV Diastolic Volume MOD BP 146.2 cm??? 67 - 155 / 56 - 104 cm??? LV Systolic Volume MOD BP 81.1 cm??? 22 - 58 / 19 - 49 cm??? LV Ejection Fraction MOD BP 44.5 % >= 55 % LV Cardiac Index MOD BP 2363.6 cm???/min???m??? LV Diastolic Volume MOD 4C 128.4 cm??? LV Systolic Volume MOD 4C 73.1 cm??? LV Ejection Fraction MOD 4C 43.0 % LV Cardiac Index MOD 4C 2005.2 cm???/min???m??? LV Diastolic Length 4C 8.3 cm LV Systolic Length 4C 7.7 cm LV Diastolic Volume MOD 2C 161.2 cm??? LV Systolic Volume MOD 2C 77.4 cm??? LV Ejection Fraction MOD 2C 52.0 % LV Cardiac Index MOD 2C 3042.2 cm???/min???m??? LV Diastolic Length 2C 8.0 cm LV Systolic Length 2C 6.5 cm DOPPLER TR Peak Velocity 310.4 cm/s TR Peak Gradient 38.5 mmHg Right Atrial Pressure 5.0 mmHg Pulmonary Artery Systolic Pressu 43.5 mmHg Right Ventricular Systolic Press 43.5 mmHg FINDINGS Left Ventricle Left ventricular ejection fraction is estimated at 40-45 %. Moderately increased left ventricular systolic volume. Moderately decreased left ventricular ejection fraction. Global left ventricular hypokinesis. Right Ventricle Right ventricular dilatation. Reduced right ventricular global systolic function. Mild to moderate pulmonary hypertension. Right Atrium Left Atrium Mitral Valve Structurally normal mitral valve. No mitral stenosis, regurgitation or prolapse. Aortic Valve Aortic valve not well visualized. No aortic valve stenosis or regurgitation. Tricuspid Valve Structurally normal tricuspid valve. No tricuspid stenosis. Trace tricuspid regurgitation. Pulmonic Valve Pulmonic valve not well visualized. Pericardium No pericardial effusion. Aorta CONCLUSIONS Mild to moderate LV systolic dysfunction with an ejection fraction of 40 to 45% Mild to moderate pulmonary hypertension Previewed by: Dr. Zcaarias Camacho MD (Electronically Signed) Final Date: 18 July 2024 17:14
[2024-07-19 08:19] LABS: Basophils # (A) 0.03 X 10*3/uL (0.00-0.10); Basophils % (A) 0.2 %; Eosinophils # (A) 0 X 10*3/uL (0.04-0.35); Eosinophils % (A) 0 %; HCT 33.4 % (39.6-50.0); Lymphocytes # (A) 0.64 X 10*3/uL (0.90-5.00); Lymphocytes % (A) 4.9 %; MCH 28.4 pg (27.0-32.0); MCHC 32.9 g/dL (32.0-37.0); MCV 86.1 FL (80.0-97.0); Mean Platelet Volume 9.5 FL (9.5-12.2); Monocytes # (A) 0.73 X 10*3/uL (0.20-1.00); Monocytes % (A) 5.6 %; NRBC Per 100 WBC 0 X 10*3/uL (0.00-0.01); Neutrophils # (A) 11.41 X 10*3/uL (1.80-7.70); Neutrophils % (A) 87.4 %; Platelet Count 255 X 10*3/uL (140-440); RBC 3.88 X 10*6/uL (4.40-5.60); RDW 15.1 % (11.5-14.5); WBC 13.06 X 10*3/uL (4.50-10.00)
[2024-07-19 08:55] VITALS: BP 103/57; PULSE 77; RESP 18; TEMP 97.4
[2024-07-19 09:00] LABS: BUN/Creat Ratio 17.12 Ratio (12.00-20.00); Blood Urea Nitrogen 13.7 mg/dL (9.0-27.0); Glucose 144 mg/dL (70-110)
[2024-07-19 09:01] LABS: Calcium 8.7 mg/dL (8.7-10.3); Carbon Dioxide 25.5 mmol/L (21.6-31.8); Chloride 91 mmol/L (96-109); Sodium 131 mmol/L (135-145)
[2024-07-19] MEDS: predniSONE 10 MG TAB PO SCH (09:17)
--- NOTE | 2024-07-19 11:31 | P.DS ---
Providers Date of admission: 07/17/24 11:03 Attending physician: Jesse Lopez MD Consults: 07/17/24 14:35 Consult Physician Routine Consulting Provider: Manoj Alberto Consult Reason/Comments: COPD + Flu + PNA Do you want consulting provider notified?: Yes Primary care physician: Enrrique Reese Hospital Course: Discharge Diagnosis: SIRS positive on admission likely due to acute on chronic hypoxic respiratory failure secondary to COPD exacerbation Influenza A infection Troponin elevation likely type II NSTEMI due to above Hyponatremia, improved, chronic: HFpEF not in exacerbation CAD with multiple stents Hypertension Diabetes mellitus Hospital Course: A 78-year-old male with PMH of chronic hypoxic respiratory failure secondary to COPD on home oxygen 3 L at night, HTN, HLD, PAD, heart failure with preserved ejection fraction, CAD with multiple stents, type II DM not on insulin, history of PE, who presented to the ER with shortness of breath. Breathing progressively getting worse since previous discharge. Reports cough of white sputum. Denies fever or chills, LE edema, chest pain, palpitations, changes in urination or bowel habits. In the ED he underwent extensive evaluation. BP 99/70, HR 120, T 97.8F, RR 20, 96% on 4L NC. CBC, Coag panel, CMP significant for WBC 13.8, Hg 12.3, Hct 37, APTT 19.4, Na 127, Cl 87, bicarb 38, glu 118, T. Bili 1.5. Lactic acid 1.4. Mag 1.8. Trop 0.054. Flu +. EKG sinus tachycardia with ST depression. CXR L basilar infiltrate. Patient is admitted for further workup and management. Started on Tamiflu, Rocephin, azithromycin, sputum cultures ordered, Legionella antigen ordered. Procalcitonin -0.14, abx stopped, solumedrol switched to prednisone 30 mg PO daily Patient's oxygen requirements remained stable, he was actually satting quite well on room air and did well with physical therapy, was independent. He was deemed stable for discharge on 07/19, recommended to follow-up with primary care physician, pulmonology, request palliative care medicine referral. It was his 11th admission since 02/2024, he is at high risk for readmission, overall prognosis is guarded, it was discussed with patient. Of note, patient was irritable and verbally aggressive with medical staff including the writer technical publications. Before discharge he mentioned that he had 1 episode of loose bowel movement and thus does not feel ready to go home. Advised him to follow-up with primary care physician, lab work at discharge showed improved sodium and stable and normal kidney function, potassium level, stable hemoglobin, mild leukocytosis likely reactive from steroids, he was afebrile with rest of vital signs stable. No concerning physical exam findings. He will complete prednisone taper, oseltamavir as outpatient. Patient seen and examined at bedside Vital signs reviewed and stable. General: [nontoxic], [no distress], [appears at stated age], obese Derm: [warm], [dry], bruising Head: [atraumatic], [normocephalic], [symmetric] Eyes: [EOMI], [no lid lag], [anicteric sclera] Mouth: [no lip lesion], [mucus membranes moist] Cardiovascular: [S1S2 reg], [no murmur] Lungs: [CTA bilateral], bilateral end expiratory wheezes] , [no accessory muscle use] Abdominal: [soft], [ nontender to palpation], [no guarding], [no appreciable organomegaly] Ext: [no gross muscle atrophy], [no edema], [no contractures] Neuro: [ CN II-XI grossly intact], [no focal neuro deficits] Psych: [Alert], [oriented], irritable A total of [48 minutes of time were spent preparing this complex discharge summary. Patient was discharged on 07/19/2024 Patient Condition at Discharge: Stable Plan - Discharge Summary Discharge Rx Participant: Yes New Discharge Prescriptions: New predniSONE See Taper PO DAILY #18 tab Oseltamivir [Tamiflu] 75 mg PO Q12HR #5 cap Continue Aspirin EC [Ecotrin Low Dose] 81 mg PO DAILY Budesonide/Formoterol Fumarate [Symbicort 160-4.5 Mcg Inhaler] 2 puff INHALATION RT-BID Ipratropium/Albuterol Sulfate [Combivent Respimat Inhaler] 1 puff INHALATION RT-QID Metoprolol Tartrate [Lopressor] 25 mg PO BID Clopidogrel Bisulfate [Plavix] 75 mg PO DAILY Tiotropium 18 Mcg/Puff [Spiriva] 2 puff INHALATION RT-DAILY Simvastatin [Zocor] 40 mg PO HS Albuterol Nebulized [Ventolin Nebulized] 2.5 mg INHALATION RT-QID Loratadine [Claritin] 10 mg PO DAILY Albuterol Inhaler [Ventolin Hfa Inhaler] 2 puff INHALATION RT-TID PRN PRN Reason: Shortness Of Breath Cholecalciferol [Vitamin D3 (25 Mcg = 1000 Iu)] 25 mcg PO BID Furosemide [Lasix] 20 mg PO DAILY Azithromycin [Zithromax] 500 mg PO MOWEFR Gabapentin [Neurontin] 200 mg PO TID #90 cap Ferrous Sulfate [Iron (65 MG Elemental)] 325 mg PO W/LUNCH Folic Acid 1 mg PO DAILY Vitamin B-12 50mcg 50 mcg PO DAILY Pantoprazole [Protonix] 40 mg PO AC-BRKFST #30 tab Montelukast [Singulair] 10 mg PO HS #30 tab Spironolactone [Aldactone] 25 mg PO DAILY #90 tab Discharge Medication List Aspirin EC [Ecotrin Low Dose] 81 mg PO DAILY 06/22/18 [History] Budesonide/Formoterol Fumarate [Symbicort 160-4.5 Mcg Inhaler] 2 puff INHALATION RT-BID 06/22/18 [History] Ipratropium/Albuterol Sulfate [Combivent Respimat Inhaler] 1 puff INHALATION RT- QID 06/22/18 [History] Metoprolol Tartrate [Lopressor] 25 mg PO BID 06/22/18 [History] Clopidogrel Bisulfate [Plavix] 75 mg PO DAILY 07/01/18 [History] Albuterol Inhaler [Ventolin Hfa Inhaler] 2 puff INHALATION RT-TID PRN 12/07/19 [History] Albuterol Nebulized [Ventolin Nebulized] 2.5 mg INHALATION RT-QID 12/07/19 [History] Loratadine [Claritin] 10 mg PO DAILY 12/07/19 [History] Simvastatin [Zocor] 40 mg PO HS 12/07/19 [History] Tiotropium 18 Mcg/Puff [Spiriva] 2 puff INHALATION RT-DAILY 12/07/19 [History] Cholecalciferol [Vitamin D3 (25 Mcg = 1000 Iu)] 25 mcg PO BID 03/17/24 [History] Ferrous Sulfate [Iron (65 MG Elemental)] 325 mg PO W/LUNCH 04/06/24 [History] Folic Acid 1 mg PO DAILY 04/06/24 [History] Vitamin B-12 50mcg 50 mcg PO DAILY 04/06/24 [History] Furosemide [Lasix] 20 mg PO DAILY 04/16/24 [History] Azithromycin [Zithromax] 500 mg PO MOWEFR 06/09/24 [History] Gabapentin [Neurontin] 200 mg PO TID #90 cap 06/11/24 [Rx] Montelukast [Singulair] 10 mg PO HS #30 tab 06/16/24 [Rx] Pantoprazole [Protonix] 40 mg PO AC-BRKFST #30 tab 06/16/24 [Rx] Spironolactone [Aldactone] 25 mg PO DAILY #90 tab 06/24/24 [Rx] Oseltamivir [Tamiflu] 75 mg PO Q12HR #5 cap 07/19/24 [Rx] predniSONE See Taper PO DAILY #18 tab 07/19/24 [Rx] Follow up Appointment(s)/Referral(s): Enrrique Reese DO [Primary Care Provider] - 1-2 days Mindy Vargas MD [STAFF PHYSICIAN] - 1 Week Patient Instructions/Handouts: COPD (Chronic Obstructive Pulmonary Disease) (DC), Pulmonary Rehabilitation (DC) Activity/Diet/Wound Care/Special Instructions: Follow-up with your primary care physician, lung doctor, request pulmonary rehab, request palliative medicine rehab as we discussed Discharge Disposition: HOME SELF-CARE
--- NOTE | 2024-07-19 13:51 | P.PN ---
Subjective Progress Note Date: 07/19/24 Principal diagnosis: COPD exacerbation, influenza A. This is a 78-year-old patient with a known history of multiple admissions to the hospital. Since the first of the year he has been in the emergency room 12 times and has been admitted 8 of those times. He does have oxygen dependent chronic obstructive pulmonary disease, congestive heart failure, hypertension, diabetes mellitus, PE, hyperlipidemia, coronary disease with stent placement. He presented here to the emergency room again on July 17, 2024 with complaints of left shoulder pain and shortness of breath. Left basilar infiltrate and/or atelectasis. White count 9.9. Hemoglobin 11.8. Platelets 245. Sodium 127. Potassium 4.5. Bicarb 32. BUN 16. Creatinine 0.62. Glucose 144. Procalcitonin was negative at 0.14. Viral screen was positive for influenza A. Troponin 0.054, 0.045, 0.033. proBNP 541. He is seen today in consultation on the regular medical floor. He is sitting up in a chair at the bedside. He is complaining significantly about his diet restrictions. He is currently on a heart healthy diet. He is maintaining good O2 saturations in the high 90s on 3 L/min per nasal cannula. He is afebrile. Hemodynamically stable. Progress note dated July 19, 2024. 28-year-old male with a history of COPD and multiple admissions to the hospital for COPD exacerbation. He is seen today in room 456. He is sitting at the edge of the bed. No acute distress. He is on 3 L of oxygen. He is not receiving any IV fluids. His procalcitonin level was 0.14. He is on Tamiflu because he tested positive for influenza A. The patient is pretty much at baseline in my opinion. Current labs include a white count 13.0, hemoglobin 11, hematocrit 33.4, and a normal platelet count. Sodium 131, potassium 4, chloride 91, CO2 26, BUN 14, creatinine 0.8. Glucose is 144. Calcium is 8.7. Urine Legionella antigen was negative. Sputum and blood sampling is negative. Objective - Vital Signs Vital signs: Vital Signs Temp 97.4 F L 07/19/24 07:19 Pulse 77 07/19/24 07:19 Resp 18 07/19/24 07:19 BP 103/57 07/19/24 07:19 Pulse Ox 93 L 07/19/24 08:45 FiO2 Intake & Output 07/18/24 07/19/24 07/19/24 18:59 06:59 18:59 Weight 111.5 kg Other: Voiding Method Urinal # Voids 2 1 # Bowel Movements 1 - Exam No acute distress, oriented 3. Currently on 3 L. Sitting at the edge of the bed. No overt respiratory distress. HEENT examination is grossly unremarkable. Mucous membranes are moist. No oral lesions. Neck supple. Full range of motion. No adenopathy thyromegaly or neck vein distention. Cardiovascular examination reveals regular rhythm rate. S1-S2 normal. No S3 or S4. No discernible murmur noted. Lungs reveal mild expiratory rhonchi. Minimal wheezes. No crackles. Breath sounds equal bilaterally. Abdomen soft bowel sounds are heard. No masses or tenderness. Extremities are intact. No cyanosis clubbing or edema. Skin is without rash or lesion. Neurologic examination is brief but nonfocal. - Labs CBC & Chem 7: 07/19/24 04:02 07/19/24 04:02 Labs: Abnormal Lab Results - Last 24 Hours (Table) 07/19/24 07/19/24 Range/Units 04:02 04:02 WBC 13.06 H (4.50-10.00) X 10*3/uL RBC 3.88 L (4.40-5.60) X 10*6/uL Hgb 11.0 L (13.0-17.0) g/dL Hct 33.4 L (39.6-50.0) % RDW 15.1 H (11.5-14.5) % Immature Gran # 0.25 H (0.00-0.04) X 10*3/uL Neutrophils # 11.41 H (1.80-7.70) X 10*3/uL Lymphocytes # 0.64 L (0.90-5.00) X 10*3/uL Eosinophils # 0 L (0.04-0.35) X 10*3/uL Sodium 131 L (135-145) mmol/L Chloride 91 L (96-109) mmol/L Anion Gap 14.50 H (4.00-12.00) mmol/L Glucose 144 H (70-110) mg/dL Microbiology - Last 24 Hours (Table) 07/18/24 08:30 Gram Stain - Preliminary Sputum Sputum Culture - Preliminary 07/17/24 12:45 Blood Culture - Preliminary Blood Assessment and Plan Assessment: Acute on chronic hypoxemic respiratory failure secondary to an acute exacerbation of chronic obstructive pulmonary disease with left lower lobe atelectasis. Procalcitonin negative. Acute exacerbation of chronic obstructive pulmonary disease located by influenza A infection. Acute influenza A. Former chronic tobacco dependence. History of Stenotrophomonas maltophilia positive sputum in April 2024. Severe chronic obstructive pulmonary disease FEV1 value of 29% of predicted. On home O2. Normally maintained on Symbicort, Spiriva, albuterol and DuoNebs [id number]. Hyponatremia. Obesity with a BMI of 40.2 kg/m. Hyperlipidemia. Hypertension. Coronary artery disease. Peripheral arterial disease. Chronic lower extremity edema bilaterally. Plan: Plan dated July 19, 2024. The patient was admitted with a COPD exacerbation, likely triggered and exacerbated by influenza A. The patient is currently on Tamiflu. Procalcitonin level was normal. He is on 3 L, which is what he uses at home. The patient is not receiving any IV fluids. The entire time he has been here, he has been complaining about the food that he has been given to eat. The patient is stable for discharge from the pulmonary standpoint. No additional recommendations are made. Prognosis is guarded. He should follow-up with his family doctor. D ictation was produced using [employer]ation software. Please excuse any grammatical, word or spelling errors. Time with Patient: Less than 30
== END 2024-07-19 14:54 | disposition home or self-care (01) | DRG 871 ==
LOC: EC 10:32 → 3SCARD 11:03 → OBSVTOIN 11:03 → 3SCARD 16:28 → 4SSUR 18:13
PROVIDERS: ADMIT Internal Medicine; ATTEND Internal Medicine
DX: A41.89 Other specified sepsis (principal); I21.A1 Myocardial infarction type 2; J96.21 Acute and chronic respiratory failure with hypoxia; J96.22 Acute and chronic respiratory failure with hypercapnia; J10.00 Influenza due to other identified influenza virus with unspecified type of pneumonia; I11.0 Hypertensive heart disease with heart failure; I27.20 Pulmonary hypertension, unspecified; J44.1 Chronic obstructive pulmonary disease with (acute) exacerbation; E11.51 Type 2 diabetes mellitus with diabetic peripheral angiopathy without gangrene; E66.9 Obesity, unspecified; F32.A Depression, unspecified; I50.32 Chronic diastolic (congestive) heart failure; Z68.41 Body mass index [BMI] 40.0-44.9, adult; J44.0 Chronic obstructive pulmonary disease with (acute) lower respiratory infection; E87.1 Hypo-osmolality and hyponatremia; S51.811A Laceration without foreign body of right forearm, initial encounter; Z11.52 Encounter for screening for COVID-19; E78.5 Hyperlipidemia, unspecified; F40.240 Claustrophobia; F43.10 Post-traumatic stress disorder, unspecified; I25.10 Atherosclerotic heart disease of native coronary artery without angina pectoris; I25.2 Old myocardial infarction; W19.XXXA Unspecified fall, initial encounter; Z79.02 Long term (current) use of antithrombotics/antiplatelets; Z79.51 Long term (current) use of inhaled steroids; Z79.82 Long term (current) use of aspirin; Z79.84 Long term (current) use of oral hypoglycemic drugs; Z79.899 Other long term (current) drug therapy; Z86.0100 Personal history of colon polyps, unspecified; Z82.49 Family history of ischemic heart disease and other diseases of the circulatory system; Z86.711 Personal history of pulmonary embolism; Z87.891 Personal history of nicotine dependence; Z87.442 Personal history of urinary calculi; Z95.5 Presence of coronary angioplasty implant and graft; Z99.81 Dependence on supplemental oxygen; Z88.1 Allergy status to other antibiotic agents; Z88.8 Allergy status to other drugs, medicaments and biological substances; Y92.099 Unspecified place in other non-institutional residence as the place of occurrence of the external cause
CPT/HCPCS: 36415; 71045; 80048; 80053; 83605; 83735; 83880; 84145; 84484; 85025; 85610; 85730; 87040; 87070; 87205; 87449; 87636; 93005; 93308; 94640; 94760; 96361; 96365; 96366; 96375; 99285

== ENCOUNTER 2024-07-27 21:45 | Inpatient (IN) | payer OTHER, MEDICARE ==
--- NOTE | 2024-07-27 22:17 | ED ---
General Adult HPI - General Chief complaint: Extremity Problem,Nontraumatic Stated complaint: foot pain Time Seen by Provider: 07/27/24 21:54 Source: patient Mode of arrival: wheelchair - History of Present Illness Initial comments: Patient is a 78-year-old gentleman with a complicated past medical history including CHF, COPD, recent admission for COPD exacerbation, influenza A presenting for bilateral foot pain and numbness. Patient states that sensation of numbness began this morning at the bottom of his feet extending his ankles. It is equal on both sides. He denies any additional new numbness, focal weakness, vision changes, dizziness, slurred speech. Denies history of the same. Denies injury or back pain. Denies urinary incontinence. Denies fevers or chills. Chest pain, sputum production or hemoptysis. Endorses bilateral lower extremity swelling and states he always feels short of breath. - Related Data Home Medications Medication Instructions Recorded Confirmed Aspirin EC [Ecotrin Low Dose] 81 mg PO DAILY 06/22/18 07/17/24 Budesonide/Formoterol Fumarate 2 puff INHALATION RT-BID 06/22/18 07/17/24 [Symbicort 160-4.5 Mcg Inhaler] Ipratropium/Albuterol Sulfate 1 puff INHALATION RT-QID 06/22/18 07/17/24 [Combivent Respimat Inhaler] Metoprolol Tartrate [Lopressor] 25 mg PO BID 06/22/18 07/17/24 Clopidogrel Bisulfate [Plavix] 75 mg PO DAILY 07/01/18 07/17/24 Albuterol Inhaler [Ventolin Hfa 2 puff INHALATION RT-TID PRN 12/07/19 07/17/24 Inhaler] Albuterol Nebulized [Ventolin 2.5 mg INHALATION RT-QID 12/07/19 07/17/24 Nebulized] Loratadine [Claritin] 10 mg PO DAILY 12/07/19 07/17/24 Simvastatin [Zocor] 40 mg PO HS 12/07/19 07/17/24 Tiotropium 18 Mcg/Puff [Spiriva] 2 puff INHALATION RT-DAILY 12/07/19 07/17/24 Cholecalciferol [Vitamin D3 (25 25 mcg PO BID 03/17/24 07/17/24 Mcg = 1000 Iu)] Ferrous Sulfate [Iron (65 MG 325 mg PO W/LUNCH 04/06/24 07/17/24 Elemental)] Folic Acid 1 mg PO DAILY 04/06/24 07/17/24 Vitamin B-12 50mcg 50 mcg PO DAILY 04/06/24 07/17/24 Furosemide [Lasix] 20 mg PO DAILY 04/16/24 07/17/24 Azithromycin [Zithromax] 500 mg PO MOWEFR 06/09/24 07/17/24 Previous Rx's Medication Instructions Recorded Gabapentin [Neurontin] 200 mg PO TID #90 cap 06/11/24 Montelukast [Singulair] 10 mg PO HS #30 tab 06/16/24 Pantoprazole [Protonix] 40 mg PO AC-BRKFST #30 tab 06/16/24 Spironolactone [Aldactone] 25 mg PO DAILY #90 tab 06/24/24 Oseltamivir [Tamiflu] 75 mg PO Q12HR #5 cap 07/19/24 predniSONE See Taper PO DAILY #18 tab 07/19/24 Allergies Allergy/AdvReac Type Severity Reaction Status Date / Time fluticasone AdvReac Nausea Verified 07/27/24 21:49 [From [facility]] levofloxacin [From Levaquin] AdvReac TENDON PAIN Verified 07/27/24 21:49 salmeterol AdvReac Nausea Verified 07/27/24 21:49 [From [facility]] Review of Systems ROS Statement: Those systems with pertinent positive or pertinent negative responses have been documented in the HPI. ROS Other: All systems not noted in ROS Statement are negative. Past Medical History Past Medical History: Coronary Artery Disease (CAD), COPD, GERD/Reflux, Hyperlipidemia, Hypertension, Myocardial Infarction (UT), Pulmonary Embolus (PE), Renal Disease Additional Past Medical History / Comment(s): home O2 (3L [place] HS), bilateral PEs in 2003, history ETOH abuse - pt states he has never had withdrawal symptoms, chronic low back pain/sciatica/spurs/disc disease - much improved after back injections, past urinary retention, diverticulitis/benign colon polyps removed, nephrolithiasis - passed stones on his own, shingelles 16 years ago - R shoulder. Last Myocardial Infarction Date:: 2010 History of Any Multi-Drug Resistant Organisms: None Reported Past Surgical History: Heart Catheterization With Stent Additional Past Surgical History / Comment(s): back injections for pain, piece of metal removed from right eye, EGD, colonoscopy Past Anesthesia/Blood Transfusion Reactions: No Reported Reaction Additional Past Anesthesia/Blood Transfusion Reaction / Comment(s): claustrophobia Date of Last Stent Placement:: 2010 Past Psychological History: Anxiety, Depression, PTSD Smoking Status: Former smoker Past Alcohol Use History: None Reported Past Drug Use History: None Reported - Past Family History Mother Family Medical History: Cancer Additional Family Medical History / Comment(s): from breast cancer at age 53. Father Family Medical History: Coronary Artery Disease (CAD), Myocardial Infarction ([place]) Additional Family Medical History / Comment(s): 4 MIs/CABG. at age 72. General Exam - General Exam Comments Initial Comments: PE: CONSTITUTIONAL: No apparent distress, chronically ill-appearing nontoxic SKIN: Warm, dry, no jaundice, hives or petechiae, no rashes or pallor to his feet EYES: Pupils are equally round, extraocular movements intact without nystagmus, clear conjunctiva, non-icteric sclera HENT: Normocephalic, atraumatic, moist mucus membranes, oropharynx clear without exudates NECK: , Full range of motion, normal appearance PULMONARY: Decreased breath sounds in the bilateral lower lung henry with scant crackles in the apices, increased excursion, tachypnea, no stridor CARDIOVASCULAR: Tachycardia, regular rate, rhythm, normal S1 and S2. No appreciated murmurs, rubs or gallops. Strong radial pulses with intact distal perfusion. Strong 2+ DP pulses bilaterally bilateral 3+ lower extremity pitting edema up to the knees GASTROINTESTINAL: Soft, active bowel sounds throughout, non-tender, non- distended, no palpable masses, no rebound or guarding. No hepatosplenomegaly MUSCULOSKELETAL: Extremities have no gross deformity, bilateral lower extremities are atraumatic NEUROLOGIC:_a/o x 3, GCS 15, normal mentation and speech. Moves all extremities x 4 without motor or sensory deficit, 5 out of 5 strength in bilateral lower extremities with knee extension, plantarflexion, endorses decrease sensation to pinprick sensation at the distal plantar aspects of his toes and around the edges of his feet extending up to the ankles bilaterally, can sense some pinprick to the dorsal aspects of his feet, decree sensation is equal bilaterall y PSYCHIATRIC:_normal mood and affect, thought process is clear and linear Course Vital Signs 07/27/24 07/27/24 07/27/24 21:47 23:25 23:40 Temperature 97.5 F L Pulse Rate 115 H 92 98 Respiratory 26 H Rate Blood Pressure 165/86 O2 Sat by Pulse 93 L Oximetry 07/27/24 07/27/24 23:41 23:51 Temperature Pulse Rate 98 100 Respiratory Rate Blood Pressure O2 Sat by Pulse Oximetry EKG Findings - EKG Comments: EKG Findings:: Sinus tachycardia, rate 105 bpm HI interval 164 ms QT/QTc 322/3 2 3 ms, normal axis, PVC present, no ST elevations or depressions, no arrhythmiaCompared to prior EKG performed on 07/17/2024, no significant changes from prior Medical Decision Making - Medical Decision Making Was pt. sent in by a medical professional or institution (, PA, AIRCRAFT STRUCTURE MECHANIC, urgent care, hospital, or shelter...) When possible be specific @ -No Did you speak to anyone other than the patient for history (EMS, parent, family, police, friend...)? What history was obtained from this source @ -No Did you review nursing and triage notes (agree or disagree)? Why? @ -I reviewed nursing and triage notes-agree with triage note Were old charts reviewed (outside hosp., previous admission, EMS record, old EKG, old radiological studies, urgent care reports/EKG's, shelter records)? Report findings @ -Medical records reviewed reviewed [facility] admitOn 07/17/2024 discharge 07/19/2024, he had presented for shortness of breath and was treated for COPD exacerbation, influenza A, type II NSTEMI, hyponatremia,Reviewed echocardiogram performed during that admission, EF of 40 to 45% Differential Diagnosis (chest pain, altered mental status, abdominal pain women, abdominal pain men, vaginal bleeding, weakness, fever, dyspnea, syncope, headac he, dizziness, GI bleed, back pain, seizure, CVA, palpatations, mental health, musculoskeletal)? @Differential diagnosis remains broad however top considerations for neuropathy secondary to uncontrolled diabetes, nutritional deficiency, infection, fluid overload secondary to CHF exacerbation, additionally did consider intracranial pathology such as acute CVA however patient's description and exam are consistent with peripheral neuropathy and he has no other focal neurologic deficits, he also does not have any new back pain or back injuries to indicate final pathology EKG interpreted by me (3pts min.). @ -As above X-rays interpreted by me (1pt min.). @Personally viewed chest x-ray are stable from most recent admission on 07/17/2024, pleural effusion I agree with radiologist interpretation CT interpreted by me (1pt min.). @ -None done U/S interpreted by me (1pt. min.). @ -None done What testing was considered but not performed or refused? (CT, X-rays, U/S, labs)? Why? @ -None What meds were considered but not given or refused? Why? @ -None Did you discuss the management of the patient with other professionals (professionals i.e. , PA, AIRCRAFT STRUCTURE MECHANIC, lab, RT, psych nurse, social worker school, merchandise complaint adjuster, teacher, philanthropy officer, child welfare caseworker)? Give summary @ -No Was smoking cessation discussed for >3mins.? @ -No Was critical care preformed (if so, how long)? @ -No Were there social determinants of health that impacted care today? How? (Homelessness, low income, unemployed, alcoholism, drug addiction, transportation, low edu. Level, literacy, decrease access to med. care, senior care, rehab)? @ -No Was there de-escalation of care discussed even if they declined (Discuss DNR or withdrawal of care, Hospice)? @ What co-morbidities impacted this encounter? (DM, HTN, Smoking, COPD, CAD, Cancer, CVA, ARF, Chemo, Hep., AIDS, mental health diagnosis, sleep apnea, morbid obesity)? @COPD, CHF, DM Was patient admitted / discharged? Hospital course, mention meds given and route, prescriptions, significant lab abnormalities, going to OR and other pertinent info. @ -Admsision- 78-year-old gentleman presenting today for bilateral foot tingling and numbness, shortness of breath.On assessment patient tachycardic, tachypneic. He was offered to be moved into a bed so bipap could be applied but said he wou ld rather than do that. Exam significant for decreased breath sounds bilateral lower mid lung henry, crackles in apices, 3+ bilateral LE edema, decreased sensation to pinprick, bilateral distal plantar aspects of feet. Feet are severely edematous. Patient states he cannot walk secondary to this. I highly symptoms suspect secondary to severe edema. He has no focal neurodeficits I do not feel CT brain CTA/CVA workup is indicated at this point as signs, symptoms and exam are consistent with peripheral neuropathy. Discussed with patient plan for labs, pain control, anticipated admission as patient states that he cannot go home like this because he cannot walk. Labs are significant for an elevated BNP, 1350, mild hyponatremia sodium 126, elevated troponin 0.050 I suspect secondary to demand as patient has no signs of STEMI or NSTEMI on EKG and denies any chest pain, kidney function is within normal limits, chest x-ray shows trace left pleural effusion. Ordered 80 mg IV Lasix. WBC count elevated 19.8, however pt denies new infectious symptom and no gross new consolidation on CXR, so will hold off on antibiotics at this point. Plan for admission for CHF exacerbation. Case discussed with Dr. Carrasco, kindly accepts patient for admission. Undiagnosed new problem with uncertain prognosis? @ -No Drug Therapy requiring intensive monitoring for toxicity (Heparin, Nitro, Insul in, Cardizem)? @ -No Were any procedures done? @ -No Diagnosis/symptom? @Acute CHF exacerbation Acute, or Chronic, or Acute on Chronic? @acute Uncomplicated (without systemic symptoms) or Complicated (systemic symptoms)? complicated Side effects of treatment? @ -No Exacerbation, Progression, or Severe Exacerbation? @ -No Poses a threat to life or bodily function? How? (Chest pain, [place], [place], pneumonia, PE, COPD, DKA, ARF, appy, cholecystitis, CVA, Diverticulitis, Homicidal, Suicidal, threat to staff... and all critical care pts) Yes, could progress to fulminant respiratory failure, cardiogenic shock and if left untreated - Lab Data Result diagrams: 07/27/24 22:35 07/27/24 22:35 Lab Results 07/27/24 07/27/24 07/27/24 Range/Units 22:35 22:35 22:35 WBC 19.7 H (3.8-10.6) k/uL RBC 4.35 (4.30-5.90) m/uL Hgb 11.9 L (13.0-17.5) gm/dL Hct 36.6 L (39.0-53.0) % MCV 84.2 (80.0-100.0) fL MCH 27.4 (25.0-35.0) pg MCHC 32.6 (31.0-37.0) g/dL RDW 14.9 (11.5-15.5) % Plt Count 342 (150-450) k/uL MPV 7.0 Neutrophils % 91 % Lymphocytes % 4 % Monocytes % 4 % Eosinophils % 0 % Basophils % 0 % Neutrophils # 18.0 H (1.3-7.7) k/uL Lymphocytes # 0.7 L (1.0-4.8) k/uL Monocytes # 0.7 (0-1.0) k/uL Eosinophils # 0.0 (0-0.7) k/uL Basophils # 0.0 (0-0.2) k/uL PT 9.9 L (10.0-12.5) sec INR 0.9 (<1.2) APTT 19.2 L (22.0-30.0) sec Sodium 126 L (137-145) mmol/L Potassium 4.4 (3.5-5.1) mmol/L Chloride 82 L (98-107) mmol/L Carbon Dioxide 37 H (22-30) mmol/L Anion Gap 7 mmol/L BUN 21 H (9-20) mg/dL Creatinine 0.74 (0.66-1.25) mg/dL Est GFR (CKD-EPI)AfAm >90 (>60 ml/min/1.73 sqM) Est GFR (CKD-EPI)NonAf 90 (>60 ml/min/1.73 sqM) Glucose 127 H (74-99) mg/dL Calcium 9.2 (8.4-10.2) mg/dL Magnesium 2.2 (1.6-2.3) mg/dL Total Bilirubin 0.8 (0.2-1.3) mg/dL AST 23 (17-59) U/L ALT 26 (4-49) U/L Alkaline Phosphatase 87 (38-126) U/L Troponin I (0.000-0.034) ng/mL NT-Pro-B Natriuret Pep 1350 pg/mL Total Protein 6.5 (6.3-8.2) g/dL Albumin 3.7 (3.5-5.0) g/dL 07/27/24 Range/Units 22:35 WBC (3.8-10.6) k/uL RBC (4.30-5.90) m/uL Hgb (13.0-17.5) gm/dL Hct (39.0-53.0) % MCV (80.0-100.0) fL MCH (25.0-35.0) pg MCHC (31.0-37.0) g/dL RDW (11.5-15.5) % Plt Count (150-450) k/uL MPV Neutrophils % % Lymphocytes % % Monocytes % % Eosinophils % % Basophils % % Neutrophils # (1.3-7.7) k/uL Lymphocytes # (1.0-4.8) k/uL Monocytes # (0-1.0) k/uL Eosinophils # (0-0.7) k/uL Basophils # (0-0.2) k/uL PT (10.0-12.5) sec INR (<1.2) APTT (22.0-30.0) sec Sodium (137-145) mmol/L Potassium (3.5-5.1) mmol/L Chloride (98-107) mmol/L Carbon Dioxide (22-30) mmol/L Anion Gap mmol/L BUN (9-20) mg/dL Creatinine (0.66-1.25) mg/dL Est GFR (CKD-EPI)AfAm (>60 ml/min/1.73 sqM) Est GFR (CKD-EPI)NonAf (>60 ml/min/1.73 sqM) Glucose (74-99) mg/dL Calcium (8.4-10.2) mg/dL Magnesium (1.6-2.3) mg/dL Total Bilirubin (0.2-1.3) mg/dL AST (17-59) U/L ALT (4-49) U/L Alkaline Phosphatase (38-126) U/L Troponin I 0.050 H* (0.000-0.034) ng/mL NT-Pro-B Natriuret Pep pg/mL Total Protein (6.3-8.2) g/dL Albumin (3.5-5.0) g/dL Disposition Clinical Impression: Acute exacerbation of CHF (congestive heart failure) Disposition: ADMITTED IP TO THIS HOSP Condition: Stable Referrals: Enrrique Reese DO [Primary Care Provider] - 1-2 days
--- NOTE | 2024-07-27 22:48 | XR ---
EXAMINATION TYPE: XR chest 2V DATE OF EXAM: 07/27/2024 10:43 PM COMPARISON: Chest radiographs from 07/16/2024 CLINICAL INDICATION: Male, 78 years old with history of difficulty breathing; [facility] TECHNIQUE: XR chest 2V Frontal and lateral views of the chest. FINDINGS: Lungs/Pleura: Blunting of the left costophrenic angle. There is no evidence of right pleural effusio n, focal consolidation, or pneumothorax Pulmonary vascularity: Unremarkable. Heart/mediastinum: Cardiomediastinal silhouette is unremarkable. Musculoskeletal: No acute osseous pathology. Other findings: None IMPRESSION: 1. No acute cardiopulmonary disease process. 2. COPD changes. 3. Trace left pleural effusion. [facility], , 07/27/2024 10:45 PM
[2024-07-27 22:49] LABS: Basophils % (A) 0 %; Eosinophils % (A) 0 %; HCT 36.6 % (39.0-53.0); HGB 11.9 gm/dL (13.0-17.5); Lymphocytes # (A) 0.7 k/uL (1.0-4.8); Lymphocytes % (A) 4 %; MCH 27.4 pg (25.0-35.0); MCHC 32.6 g/dL (31.0-37.0); MCV 84.2 fL (80.0-100.0); Monocytes # (A) 0.7 k/uL (0-1.0); Monocytes % (A) 4 %; Neutrophils % (A) 91 %; Platelet Count 342 k/uL (150-450); RBC 4.35 m/uL (4.30-5.90); RDW 14.9 % (11.5-15.5); WBC 19.7 k/uL (3.8-10.6)
[2024-07-27] MEDS: methylPREDNISolone SOD SUCCI 125 MG/2 ML VIAL IV STA (22:49)
[2024-07-27] MEDS: ACETAMINOPHEN TAB 325 MG TAB PO STA (22:49)
[2024-07-27 22:51] LABS: ALT 26 U/L (4-49); AST 23 U/L (17-59); African American GFR (CKD) >90 (>60 ml/min/1.73 sqM); Albumin 3.7 g/dL (3.5-5.0); Alkaline Phosphatase 87 U/L (38-126); Anion Gap 7 mmol/L; Blood Urea Nitrogen 21 mg/dL (9-20); Calcium 9.2 mg/dL (8.4-10.2); Carbon Dioxide 37 mmol/L (22-30); Chloride 82 mmol/L (98-107); Glucose 127 mg/dL (74-99); Magnesium 2.2 mg/dL (1.6-2.3); Non-African American GFR(CKD) 90 (>60 ml/min/1.73 sqM); Potassium 4.4 mmol/L (3.5-5.1); Sodium 126 mmol/L (137-145); Total Bilirubin 0.8 mg/dL (0.2-1.3); Total Protein 6.5 g/dL (6.3-8.2)
[2024-07-27 22:59] LABS: INR 0.9 (<1.2); Prothrombin Time 9.9 sec (10.0-12.5)
[2024-07-27 23:00] LABS: NT-Pro-B-Type Natriuretic Pept 1350 pg/mL
[2024-07-27 23:10] LABS: Partial Thromboplastin Time 19.2 sec (22.0-30.0)
[2024-07-27] MEDS: IPRATROPIUM 0.5 MG/2.5 ML NEBU INHALATION STA ×2 (23:25→23:40)
[2024-07-27] MEDS: ALBUTEROL NEBULIZED 2.5 MG/3 ML INHALATION SCH (23:25)
[2024-07-27] MEDS: FUROSEMIDE 10 MG/ML 10 ML VIAL IV STA (23:57)
[2024-07-28 00:58] LABS: Glucose,Whole Blood 161 mg/dL (70-110)
--- NOTE | 2024-07-28 01:17 | P.HPIM ---
History of Present Illness H&P Date: 07/28/24 Chief Complaint: SOB Patient is a 78 year old M with PMH COPD (on 3L at night), HFpEF, CAD with multiple stents, hypertension, None insulin-dependent diabetes mellitus, history of PE, hyperlipidemia presenting with worsening shortness of breath and bilateral foot numbness. Patient states numbness began earlier this morning on bilateral plantar surface extending to the ankles. Patient was recently admitted for acute on chronic hypoxic respiratory failure secondary to influenza A. Patient states his shortness of breath has gotten worse. Dyspnea made worse on exertion. Patient admits to orthopnea. Endorses a cough however denies any sputum production. Patient notices legs have been swollen as well. Denies any fevers, chills, headache, chest pain, abdominal pain, nausea, vomiting, diarrhea, abdominal pain, urinary symptoms. EKG independently interpreted displaying sinus tachycardia, rate 105 bpm, QTc 383 ms CXR independently interpreted displaying trace left pleural effusion T 97.5 F, IA 158, RR 26, BP 165/86, O2 saturation 93% on room air Review of systems: Pertinent positives and negatives as discussed in HPI, a complete review of systems was performed and all other systems are negative. Physical examination: Vital signs reviewed General: In moderate distress, appears at stated age, obese Derm: no unusual rashes/lesions, warm Head: atraumatic, normocephalic, symmetric Eyes: EOMI, anicteric sclera, pupils equal round reactive to light ENT: Nose and ears atraumatic Neck: No cervical lymphadenopathy, trachea midline, supple Mouth: no lip lesion, mucus membranes moist Cardiovascular: S1S2 reg, no murmur, positive dorsalis pedis pulse bilateral, bilateral lower extremity 3+ pitting edema to knees Lungs: Diminished lung sounds bilaterally, bilateral inspiratory/expiratory wheezing, crackles Abdominal: soft, non-tender to palpation, no guarding Ext: muscle strength 5 out of 5 in all 4 extremities grossly, no gross muscle atrophy Neuro: CN II-XI grossly intact, no gross focal neuro deficits Psych: Alert, oriented to person, place, and time Assessment/Plan: Patient is a 78 year old M with PMH COPD (on 3L at night), HFpEF, CAD with multiple stents, hypertension, exp-fmtmsng-pojzroift diabetes mellitus, history of PE not anticoagulated, hyperlipidemia presenting with worsening shortness of breath. ED documentation reviewed. Discussed with the patient. The patient is admitted with an anticipated greater than 2 midnight stay for evaluation of acute on chronic hypoxic hypercapnic respiratory failure secondary to acute HFpEF exacerbation and acute COPD exacerbation. #. Acute HFpEF exacerbation #. Acute on chronic hypoxic hypercapnic respiratory failure #. Overlying acute COPD exacerbation (on 3 L home oxygen at night only) #. Type II NSTEMI #. Hypervolemic hyponatremia #. Metabolic alkalosis EKG independently interpreted displays CXR independently interpreted displaying Patient with inspiratory/expiratory wheezing, bilateral 2+ pitting edema Troponin 0.050, continue to trend proBNP 1350 WBC 19.7, patient afebrile, no signs of infection Daily weights, I's and O's Heart healthy diet with fluid restriction of 1.5 L Cardiac telemetry Lasix 40 mg PO q12hr Continue Lopressor 25 mg p.o. twice daily and Aldactone 25 mg p.o. daily Resume home breathing treatment of Spiriva, Symbicort, Singulair DuoNebs [id number] and as needed On 4 L nasal cannula, continue to wean down, keep O2 between 88-92% Prednisone 40 mg p.o. daily for 5 days Cepheid 4 Plex pending Cardiology consulted Pulmonology consulted #. Abk-efrwkjk-jiycjavih diabetes mellitus Humalog insulin SQ sliding scale Accu-Cheks ACHS Monitor for hypoglycemia #. Neuropathy Continue gabapentin 200 mg PO TID #. CAD Continue aspirin 81 mg p.o. daily Lipitor 20 mg p.o. at bedtime #. GERD Protonix 40 mg PO QD #. Normocytic anemia Likely from chronic disease No acute bleeding Continue ferrous sulfate 325 mg p.o. daily Folic acid 1 mg p.o. daily DVT prophylaxis: Heparin 5000 unit SQ every 8 hours CODE STATUS: Full code Anticipated discharge place: Pending clinical course Ross Kwan MD PGY-1 IM Dictation was produced using [employer] dictation software. please excuse any grammatical, word or spelling errors. I have seen and evaluated the patient today. I Discussed the case with the resident and agree with the resident's findings I edited the assessment and plan as necessary as documented in the resident's note. Past Medical History Past Medical History: Coronary Artery Disease (CAD), COPD, GERD/Reflux, Hyper lipidemia, Hypertension, Myocardial Infarction (CO), Pulmonary Embolus (PE), Renal Disease Additional Past Medical History / Comment(s): home O2 (3L [place] HS), bilateral PEs in 2003, history ETOH abuse - pt states he has never had withdrawal symptoms, chronic low back pain/sciatica/spurs/disc disease - much improved after back injections, past urinary retention, diverticulitis/benign colon polyps removed, nephrolithiasis - passed stones on his own, shingelles 16 years ago - R shoulder. Last Myocardial Infarction Date:: 2010 History of Any Multi-Drug Resistant Organisms: None Reported Past Surgical History: Heart Catheterization With Stent Additional Past Surgical History / Comment(s): back injections for pain, piece of metal removed from right eye, EGD, colonoscopy Past Anesthesia/Blood Transfusion Reactions: No Reported Reaction Additional Past Anesthesia/Blood Transfusion Reaction / Comment(s): claustrophobia Date of Last Stent Placement:: 2010 Past Psychological History: Anxiety, Depression, PTSD Smoking Status: Former smoker Past Alcohol Use History: None Reported Past Drug Use History: None Reported - Past Family History Mother Family Medical History: Cancer Additional Family Medical History / Comment(s): from breast cancer at age 53. Father Family Medical History: Coronary Artery Disease (CAD), Myocardial Infarction (CO) Additional Family Medical History / Comment(s): 4 MIs/CABG. at age 72. Medications and Allergies Home Medications Medication Instructions Recorded Confirmed Type Aspirin EC [Ecotrin Low Dose] 81 mg PO DAILY 06/22/18 07/17/24 History Budesonide/Formoterol Fumarate 2 puff INHALATION RT-BID 06/22/18 07/17/24 History [Symbicort 160-4.5 Mcg Inhaler] Ipratropium/Albuterol Sulfate 1 puff INHALATION RT-QID 06/22/18 07/17/24 History [Combivent Respimat Inhaler] Metoprolol Tartrate [Lopressor] 25 mg PO BID 06/22/18 07/17/24 History Clopidogrel Bisulfate [Plavix] 75 mg PO DAILY 07/01/18 07/17/24 History Albuterol Inhaler [Ventolin Hfa 2 puff INHALATION RT-TID PRN 12/07/19 07/17/24 History Inhaler] Albuterol Nebulized [Ventolin 2.5 mg INHALATION RT-QID 12/07/19 07/17/24 History Nebulized] Loratadine [Claritin] 10 mg PO DAILY 12/07/19 07/17/24 History Simvastatin [Zocor] 40 mg PO HS 12/07/19 07/17/24 History Tiotropium 18 Mcg/Puff [Spiriva] 2 puff INHALATION RT-DAILY 12/07/19 07/17/24 History Cholecalciferol [Vitamin D3 (25 25 mcg PO BID 03/17/24 07/17/24 History Mcg = 1000 Iu)] Ferrous Sulfate [Iron (65 MG 325 mg PO W/LUNCH 04/06/24 07/17/24 History Elemental)] Folic Acid 1 mg PO DAILY 04/06/24 07/17/24 History Vitamin B-12 50mcg 50 mcg PO DAILY 04/06/24 07/17/24 History Furosemide [Lasix] 20 mg PO DAILY 04/16/24 07/17/24 History Azithromycin [Zithromax] 500 mg PO MOWEFR 06/09/24 07/17/24 History Gabapentin [Neurontin] 200 mg PO TID #90 cap 06/11/24 07/17/24 Rx Montelukast [Singulair] 10 mg PO HS #30 tab 06/16/24 07/17/24 Rx Pantoprazole [Protonix] 40 mg PO AC-BRKFST #30 tab 06/16/24 07/17/24 Rx Spironolactone [Aldactone] 25 mg PO DAILY #90 tab 06/24/24 07/17/24 Rx Oseltamivir [Tamiflu] 75 mg PO Q12HR #5 cap 07/19/24 Rx predniSONE See Taper PO DAILY #18 tab 07/19/24 Rx Allergies Allergy/AdvReac Type Severity Reaction Status Date / Time fluticasone AdvReac Nausea Verified 07/27/24 21:49 [From Wixela Inhub] levofloxacin [From Levaquin] AdvReac TENDON PAIN Verified 07/27/24 21:49 salmeterol AdvReac Nausea Verified 07/27/24 21:49 [From Markxela Inhub] Physical Exam Vitals: Vital Signs Temp Pulse Resp BP Pulse Ox 07/27/24 23:51 100 07/27/24 23:41 98 07/27/24 23:40 98 07/27/24 23:25 92 07/27/24 21:47 97.5 F L 115 H 26 H 165/86 93 L Intake and Output 07/27/24 07/27/24 07/28/24 14:59 22:59 06:59 Other: Weight 90.718 kg Results CBC & Chem 7: 07/27/24 22:35 07/27/24 22:35 Labs: Abnormal Lab Results - Last 24 Hours (Table) 07/27/24 07/27/24 07/27/24 Range/Units 22:35 22:35 22:35 WBC 19.7 H (3.8-10.6) k/uL Hgb 11.9 L (13.0-17.5) gm/dL Hct 36.6 L (39.0-53.0) % Neutrophils # 18.0 H (1.3-7.7) k/uL Lymphocytes # 0.7 L (1.0-4.8) k/uL PT 9.9 L (10.0-12.5) sec APTT 19.2 L (22.0-30.0) sec Sodium 126 L (137-145) mmol/L Chloride 82 L (98-107) mmol/L Carbon Dioxide 37 H (22-30) mmol/L BUN 21 H (9-20) mg/dL Glucose 127 H (74-99) mg/dL Troponin I (0.000-0.034) ng/mL 07/27/24 Range/Units 22:35 WBC (3.8-10.6) k/uL Hgb (13.0-17.5) gm/dL Hct (39.0-53.0) % Neutrophils # (1.3-7.7) k/uL Lymphocytes # (1.0-4.8) k/uL PT (10.0-12.5) sec APTT (22.0-30.0) sec Sodium (137-145) mmol/L Chloride (98-107) mmol/L Carbon Dioxide (22-30) mmol/L BUN (9-20) mg/dL Glucose (74-99) mg/dL Troponin I 0.050 H* (0.000-0.034) ng/mL
[2024-07-28 01:43] LABS: Influenza A Detected (Not Detectd); Influenza B Not Detected (Not Detectd); RSV Not Detected (Not Detectd)
[2024-07-28 03:54] LABS: Basophils % (A) 0 %; Eosinophils % (A) 0 %; HCT 35.4 % (39.0-53.0); HGB 11.9 gm/dL (13.0-17.5); Lymphocytes # (A) 0.4 k/uL (1.0-4.8); Lymphocytes % (A) 3 %; MCH 28.2 pg (25.0-35.0); MCHC 33.5 g/dL (31.0-37.0); MCV 84.2 fL (80.0-100.0); Mean Platelet Volume 6.7; Monocytes # (A) 0.4 k/uL (0-1.0); Monocytes % (A) 3 %; Neutrophils # (A) 14.8 k/uL (1.3-7.7); Neutrophils % (A) 94 %; Platelet Count 353 k/uL (150-450); RBC 4.21 m/uL (4.30-5.90); RDW 14.9 % (11.5-15.5); WBC 15.8 k/uL (3.8-10.6)
[2024-07-28] MEDS ORDERED: IPRATROPIUM-ALBUTEROL 3 ML NEB INHALATION SCH (04:00)
[2024-07-28 04:04] LABS: ALT 27 U/L (4-49); AST 24 U/L (17-59); African American GFR (CKD) >90 (>60 ml/min/1.73 sqM); Albumin 3.8 g/dL (3.5-5.0); Alkaline Phosphatase 82 U/L (38-126); Anion Gap 9 mmol/L; Blood Urea Nitrogen 25 mg/dL (9-20); Calcium 9.1 mg/dL (8.4-10.2); Carbon Dioxide 35 mmol/L (22-30); Chloride 81 mmol/L (98-107); Glucose 171 mg/dL (74-99); Magnesium 2.1 mg/dL (1.6-2.3); Non-African American GFR(CKD) 88 (>60 ml/min/1.73 sqM); Potassium 4.1 mmol/L (3.5-5.1); Sodium 125 mmol/L (137-145); Total Bilirubin 0.9 mg/dL (0.2-1.3); Total Protein 6.4 g/dL (6.3-8.2)
[2024-07-28 07:43] LABS: Glucose,Whole Blood 173 mg/dL (70-110)
[2024-07-28] MEDS: SYMBICORT 160-4.5 MCG INHALER INHALATION SCH (07:49)
[2024-07-28] MEDS: TIOTROPIUM 2.5 MCG INHALER INHALATION SCH (07:50)
[2024-07-28] MEDS: IPRATROPIUM-ALBUTEROL 3 ML NEB INHALATION SCH (07:50)
[2024-07-28] MEDS: HEPARIN SODIUM,PORCINE 5,000 UNIT/ML 1 ML VIAL SQ SCH (08:07)
[2024-07-28] MEDS: INSULIN LISPRO (HumaLOG) 100 UNIT/ML 10 mL VL SQ SCH (08:07)
[2024-07-28] MEDS: PANTOPRAZOLE 40 MG TABLET PO SCH (08:07)
[2024-07-28] MEDS ORDERED: VITAMIN B12 50 MCG PO SCH (09:00)
[2024-07-28] MEDS: SPIRONOLACTONE 25 MG TAB PO SCH (09:18)
[2024-07-28] MEDS: predniSONE 20 MG TAB PO SCH (09:18)
[2024-07-28] MEDS: METOPROLOL TARTRATE 25 MG TAB PO SCH (09:18)
[2024-07-28] MEDS: FOLIC ACID 1 MG TAB PO SCH (09:18)
[2024-07-28] MEDS: GABAPENTIN 100 MG CAP PO SCH (09:18)
[2024-07-28] MEDS: ASPIRIN 81 MG PO SCH (09:18)
[2024-07-28] MEDS: LOSARTAN 25 MG TAB PO SCH (09:19)
[2024-07-28] MEDS: FUROSEMIDE 40 MG TAB PO SCH (09:19)
--- NOTE | 2024-07-28 10:53 | P.CRDCN ---
History of Present Illness History of present illness: HISTORY OF PRESENT ILLNESS: This is a 78-year-old male with a past medical history significant for coronary artery disease with previous stenting, pulmonary hypertension, hypertension hyp erlipidemia, and obesity. Patient follows in the office with Dr. Camacho. We have been asked to see the patient in consultation for CHF. Patient examined at the bedside. Patient presented to the ER with shortness of breath and fatigue. Patient was found to be positive for influenza. Patient denies chest pain or pressure. He currently denies shortness of breath. Bedside telemetry reveals atrial tachycardia. DIAGNOSTICS: - EKG reveals sinus tachycardia with nonspecific ST-T wave changes. - Chest xray negative for acute process. COPD changes. Trace left pleural effusion. - Laboratory data: WBC 15.8. Hemoglobin 11.9. Platelet count 353. Sodium 125. Potassium 4.1. BUN 25. Creatinine 0.77. Troponin 0.050. 0.049. 0.049. Positive for influenza A - Current home cardiac medication list includes simvastatin 40 mg daily, metoprolol tartrate 25 mg twice a day, Lasix 20 mg daily, Plavix 75 mg daily -Limited echo performed on 07/17/2024 revealed ejection fraction 40 to 45%, global hypokinesis, mild to moderate pulmonary hypertension - Cardiac catheterization history: February 2011 with stenting to the proximal RCA REVIEW OF SYSTEMS: At the time of my exam: CONSTITUTIONAL: Denies fever or chills. HEENT: Denies blurred vision, vision changes, or eye pain. Denies hemoptysis CARDIOVASCULAR: Denies chest pain. Denies orthopnea. Denies PND. Denies palpitations RESPIRATORY: Denies shortness of breath. GASTROINTESTINAL: Denies abdominal pain. Denies nausea or vomiting. HEMATOLOGIC: Denies bleeding disorders. GENITOURINARY: Denies any blood in urine. SKIN: Denies pruitis. Denies rash. PHYSICAL EXAM: VITAL SIGNS: Reviewed. GENERAL: Well-developed in no acute distress. HEENT: Head is normocephalic. Pupils are equal, round. Sclerae anicteric. Mucous membranes of the mouth are moist. Neck supple. No JVD or thyromegaly LUNGS: Respirations even and unlabored. Lungs essentially clear to auscultation bilaterally. HEART: Regular rate and rhythm. S1 and S2 heard. ABDOMEN: Soft. Nondistended. Nontender. EXTREMITIES: Normal range of motion. No clubbing or cyanosis. Peripheral pulses intact. No lower extremity edema NEUROLOGIC: Awake and alert. Oriented x 3. ASSESSMENT: Generalized weakness Acute influenza A Elevated troponins, flat, type II AL secondary to acute influenza A Acute on chronic heart failure with reduced EF Hyponatremia Coronary artery disease with previous stenting to the proximal RCA, 2010 Ischemic cardiomyopathy 40 to 45% Mild to moderate pulmonary hypertension Hypertension Hyperlipidemia Obesity: BMI 32.3 PLAN: No need to repeat echocardiogram as this was performed on 07/17/2024 Resume home cardiac medications as listed above Continue Lasix 40 mg twice a day Daily weights, accurate intake and output, and monitoring of kidney function Add losartan 12.5 mg daily Further recommendations pending patient course Nurse practitioner note has been reviewed by physician. Signing provider agrees with the documented findings, assessment, and plan of care documented by FINANCIAL PLANNING ANALYST as a scribe. Past Medical History Past Medical History: Coronary Artery Disease (CAD), COPD, GERD/Reflux, Hyperlipidemia, Hypertension, Myocardial Infarction (AL), Pulmonary Embolus (PE), Renal Disease Additional Past Medical History / Comment(s): home O2 (3L [place]), bilateral PEs in 2003, history ETOH abuse - pt states he has never had withdrawal symptoms, chronic low back pain/sciatica/spurs/disc disease - much improved after back injections, past urinary retention, diverticulitis/benign colon polyps removed, nephrolithiasis - passed stones on his own, shingelles 16 years ago - R shoulder. Last Myocardial Infarction Date:: 2010 History of Any Multi-Drug Resistant Organisms: None Reported Past Surgical History: Heart Catheterization With Stent Additional Past Surgical History / Comment(s): back injections for pain, piece of metal removed from right eye, EGD, colonoscopy Past Anesthesia/Blood Transfusion Reactions: No Reported Reaction Additional Past Anesthesia/Blood Transfusion Reaction / Comment(s): claustrophobia Date of Last Stent Placement:: 2010 Past Psychological History: Anxiety, Depression, PTSD Smoking Status: Former smoker Past Alcohol Use History: None Reported Past Drug Use History: None Reported - Past Family History Mother Family Medical History: Cancer Additional Family Medical History / Comment(s): from breast cancer at age 53. Father Family Medical History: Coronary Artery Disease (CAD), Myocardial Infarction (AL) Additional Family Medical History / Comment(s): 4 MIs/CABG. at age 72. Medications and Allergies Home Medications Medication Instructions Recorded Confirmed Type Aspirin EC [Ecotrin Low Dose] 81 mg PO DAILY 06/22/18 07/28/24 History Budesonide/Formoterol Fumarate 2 puff INHALATION RT-BID 06/22/18 07/28/24 History [Symbicort 160-4.5 Mcg Inhaler] Ipratropium/Albuterol Sulfate 1 puff INHALATION RT-QID 06/22/18 07/28/24 History [Combivent Respimat Inhaler] Metoprolol Tartrate [Lopressor] 25 mg PO BID 06/22/18 07/28/24 History Clopidogrel Bisulfate [Plavix] 75 mg PO DAILY 07/01/18 07/28/24 History Albuterol Inhaler [Ventolin Hfa 2 puff INHALATION RT-TID PRN 12/07/19 07/28/24 History Inhaler] Albuterol Nebulized [Ventolin 2.5 mg INHALATION RT-QID 12/07/19 07/28/24 History Nebulized] Loratadine [Claritin] 10 mg PO DAILY 12/07/19 07/28/24 History Simvastatin [Zocor] 40 mg PO HS 12/07/19 07/28/24 History Tiotropium 18 Mcg/Puff [Spiriva] 2 puff INHALATION RT-DAILY 12/07/19 07/28/24 History Cholecalciferol [Vitamin D3 (25 25 mcg PO BID 03/17/24 07/28/24 History Mcg = 1000 Iu)] Ferrous Sulfate [Iron (65 MG 325 mg PO W/LUNCH 04/06/24 07/28/24 History Elemental)] Folic Acid 1 mg PO DAILY 04/06/24 07/28/24 History Vitamin B-12 50mcg 50 mcg PO DAILY 04/06/24 07/28/24 History Furosemide [Lasix] 20 mg PO DAILY 04/16/24 07/28/24 History Azithromycin [Zithromax] 500 mg PO MOWEFR 06/09/24 07/28/24 History Gabapentin [Neurontin] 200 mg PO TID #90 cap 06/11/24 07/28/24 Rx Montelukast [Singulair] 10 mg PO HS #30 tab 06/16/24 07/28/24 Rx Pantoprazole [Protonix] 40 mg PO AC-BRKFST #30 tab 06/16/24 07/28/24 Rx Spironolactone [Aldactone] 25 mg PO DAILY #90 tab 06/24/24 07/28/24 Rx predniSONE See Taper PO DAILY #18 tab 07/19/24 07/28/24 Rx HYDROcodone/APAP 5-325MG [[place] 1 tab PO TID PRN 07/28/24 07/28/24 History 5-325] Meloxicam [Mobic] 7.5 mg PO DAILY 07/28/24 07/28/24 History Ondansetron Odt [Zofran Odt] 4 mg PO Q8HR PRN 07/28/24 07/28/24 History Allergies Allergy/AdvReac Type Severity Reaction Status Date / Time fluticasone AdvReac Nausea Verified 07/28/24 07:59 [From Wixela Inhub] levofloxacin [From Levaquin] AdvReac TENDON PAIN Verified 07/28/24 07:59 salmeterol AdvReac Nausea Verified 07/28/24 07:59 [From Wixela Inhub] Physical Exam Vitals: Vital Signs Temp Pulse Resp BP Pulse Ox 07/28/24 06:40 97.6 F 106 H 20 116/79 97 07/28/24 05:24 97.5 F L 106 H 20 157/71 97 07/28/24 03:19 108 H 20 111/91 99 07/27/24 23:51 100 07/27/24 23:41 98 07/27/24 23:40 98 07/27/24 23:25 92 07/27/24 21:47 97.5 F L 115 H 26 H 165/86 93 L Intake and Output 07/27/24 07/28/24 07/28/24 22:59 06:59 14:59 Intake Total 180 Balance 180 Intake: Oral 180 Other: Weight 90.718 kg Results 07/28/24 03:36 07/28/24 03:36 Cardiac Enzymes 07/27/24 07/27/24 07/28/24 Range/Units 22:35 22:35 00:30 AST 23 (17-59) U/L Troponin I 0.050 H* 0.049 H* (0.000-0.034) ng/mL 07/28/24 07/28/24 Range/Units 03:36 03:36 AST 24 (17-59) U/L Troponin I 0.049 H* (0.000-0.034) ng/mL Coagulation 07/27/24 Range/Units 22:35 PT 9.9 L (10.0-12.5) sec APTT 19.2 L (22.0-30.0) sec CBC 07/27/24 07/28/24 Range/Units 22:35 03:36 WBC 19.7 H 15.8 H (3.8-10.6) k/uL RBC 4.35 4.21 L (4.30-5.90) m/uL Hgb 11.9 L 11.9 L (13.0-17.5) gm/dL Hct 36.6 L 35.4 L (39.0-53.0) % Plt Count 342 353 (150-450) k/uL Comprehensive Metabolic Panel 07/27/24 07/28/24 Range/Units 22:35 03:36 Sodium 126 L 125 L (137-145) mmol/L Potassium 4.4 4.1 (3.5-5.1) mmol/L Chloride 82 L 81 L (98-107) mmol/L Carbon Dioxide 37 H 35 H (22-30) mmol/L BUN 21 H 25 H (9-20) mg/dL Creatinine 0.74 0.77 (0.66-1.25) mg/dL Glucose 127 H 171 H (74-99) mg/dL Calcium 9.2 9.1 (8.4-10.2) mg/dL AST 23 24 (17-59) U/L ALT 26 27 (4-49) U/L Alkaline Phosphatase 87 82 (38-126) U/L Total Protein 6.5 6.4 (6.3-8.2) g/dL Albumin 3.7 3.8 (3.5-5.0) g/dL Current Medications Generic Name Dose Route Start Last Admin Trade Name Freq PRN Reason Stop Dose Admin Albuterol/Ipratropium 3 ml 07/28/24 00:40 Ipratropium-Albuterol 3 Ml Neb INHALATION RT-QID PRN Shortness Of Breath Or Wheezing Albuterol/Ipratropium 3 ml 07/28/24 08:00 Ipratropium-Albuterol 3 Ml Neb INHALATION RT-QID CYNDI Aspirin 81 mg 07/28/24 09:00 Aspirin 81 Mg PO DAILY [facility] Atorvastatin Calcium 20 mg 07/28/24 21:00 Atorvastatin 20 Mg Tab PO HS [facility] Azithromycin 500 mg 07/29/24 09:00 Azithromycin 500 Mg Tab PO 08/01/24 08:59 [id number] [facility] Protocol Budesonide/Formoterol Fumarate 2 puff 07/28/24 08:00 Symbicort 160-4.5 Mcg Inhaler INHALATION RT-BID [facility] Ferrous Sulfate 325 mg 07/28/24 12:30 Ferrous Sulfate 325 Mg Tab PO W/LUNCH [facility] Folic Acid 1 mg 07/28/24 09:00 Folic Acid 1 Mg Tab PO DAILY [facility] Furosemide 40 mg 07/28/24 09:00 Furosemide 40 Mg Tab PO Q12HR [facility] Gabapentin 200 mg 07/28/24 09:00 Gabapentin 100 Mg Cap PO TID [facility] Heparin Sodium (Porcine) 5,000 unit 07/28/24 08:00 Heparin Sodium,Porcine 5,000 Unit/Ml 1 Ml Vial SQ Q8HR [facility] Insulin Human Lispro 0 unit 07/28/24 07:30 Insulin Lispro (Humalog) 100 Unit/Ml 10 Ml Vl SQ ACHS [facility] Protocol Metoprolol Tartrate 25 mg 07/28/24 09:00 Metoprolol Tartrate 25 Mg Tab PO BID [facility] Montelukast Sodium 10 mg 07/28/24 21:00 Montelukast 10 Mg Tab PO HS [facility] Pantoprazole Sodium 40 mg 07/28/24 07:30 Pantoprazole 40 Mg Tablet PO AC-BRKFST [facility] Prednisone 40 mg 07/28/24 09:00 Prednisone 20 Mg Tab PO DAILY [facility] Spironolactone 25 mg 07/28/24 09:00 Spironolactone 25 Mg Tab PO DAILY [facility] Tiotropium Avery 2 puff 07/28/24 08:00 Tiotropium 2.5 Mcg Inhaler INHALATION RT-DAILY [facility] Intake and Output 07/27/24 07/28/24 07/28/24 22:59 06:59 14:59 Intake Total 180 Balance 180 Intake: Oral 180 Other: Weight 90.718 kg 07/28/24 03:36 07/28/24 03:36
[2024-07-28 12:39] LABS: Glucose,Whole Blood 155 mg/dL (70-110)
[2024-07-28] MEDS: FERROUS SULFATE 325 MG TAB PO SCH (12:52)
[2024-07-28] MEDS: IPRATROPIUM-ALBUTEROL 3 ML NEB INHALATION PRN (17:18)
[2024-07-28 17:49] LABS: Glucose,Whole Blood 133 mg/dL (70-110)
[2024-07-28] MEDS: IBUPROFEN 600 MG TAB PO PRN (18:06)
[2024-07-28] MEDS: PSEUDOEPHEDRINE 30 MG TAB PO PRN (18:06)
[2024-07-28] MEDS: MONTELUKAST 10 MG TAB PO SCH (20:34)
[2024-07-28] MEDS: ATORVASTATIN 20 MG TAB PO SCH (20:34)
[2024-07-28] MEDS: ACETAMINOPHEN TAB 325 MG TAB PO PRN (20:35)
[2024-07-28 20:37] LABS: Glucose,Whole Blood 170 mg/dL (70-110)
--- NOTE | 2024-07-28 23:37 | P.CNPUL ---
History of Present Illness Consult date: 07/28/24 History of present illness: This is a 78-year-old male patient presented to the hospital because of pain lower extremity essentially exertion. He also has some chronic numbness along with the pain in his feet bilaterally. He has chronic lower extremity edema. He has noted multiple comorbidities. Specifically, the patient has previous history of COPD with an FEV1 of 29% of predicted. The patient was hospitalized on 07/18/2024 and seen by pulmonology for acute COPD exacerbation and influenza A infection. At that time, the patient was treated appropriately and he was discharged home. He had a similar hospitalization back in April 2024 and at that time the patient has stenotrophomonas in his lungs, treated appropriately. The patient has chronic hypoxic rosy failure maintained on oxygen 3 L of oxygen by nasal cannula. He has been maintained on a combination of Breyna and Spiriva on an outpatient basis. He has had multiple hospitalization for COPD extubation essentially related to various respiratory infections. He is also known to have peripheral vascular disease, hypertension, hyperlipidemia, coronary artery disease, obesity, and the patient is a former smoker. His previous echocardiogram from March 2024 has shown an ejection fraction of 55 to 60% along with mild dilatation of the RV. Previous arterial Dopplers of the lower extremity showed a normal ankle-brachial indices bilaterally. There is mild decrease in bilateral toe brachial intake suggested of mild distal lower extremity PAD. Previous CT angiogram of the lower extremity done on 02/26/2024 showed moderate atherosclerotic stenosis throughout the right lower extremity. More severe focal stenosis involving the mid right external iliac artery, proximal anterior tibial artery and there was satisfactory runoff via the posterior tibial artery. Neither the anterior tibial artery or the peroneal artery were seen beyond the distal leg level. Previous Doppler of the lower extremity from April 2024 showed no evidence of DVT. His current white cell count is at 15.8, hemoglobin is 11.9 and platelet count of 353. Sodium level is 125, bicarb 25, BUN 25 with a creatinine of 0.77. Chloride is at 81. Troponin is at 0.04. Normal LFTs. Chest x-ray was reviewed no chest x-ray from this current admission. Oxygenation remained stable and the patient is currently on 4 L of oxygen by nasal cannula with a pulse ox of 97%. Review of Systems CONSTITUTIONAL: Denies any recent significant weight loss or weight gain. EYES: Denies change in vision. EARS, NOSE, MOUTH, THROAT: Denies headaches, denies sore throat. CARDIOVASCULAR: Denies chest pain, palpitations or syncopal episodes. He has chronic claudication RESPIRATORY: Positive for shortness of breath, cough, congestion no hemoptysis. GASTROINTESTINAL: Denies change in appetite, denies abdominal pain GENITOURINARY: Denies hematuria, denies infections. MUSKULOSKELETAL: Positive for left shoulder pain. Denies pain, denies swelling. INTEGUMENTARY: Denies rash, denies eczema. NEUROLOGICAL: Denies recent memory loss, no recent seizure activity. PSYCHIATRIC: Denies anxiety, denies depression. HEMATOLOGIC/LYMPHATIC: Denies anemia, denies enlarged lymph nodes. Past Medical History Past Medical History: Coronary Artery Disease (CAD), COPD, GERD/Reflux, Hyperlipidemia, Hypertension, Myocardial Infarction (MT), Pulmonary Embolus (PE), Renal Disease Additional Past Medical History / Comment(s): home O2 (3L [place] HS), bilateral PEs in 2003, history ETOH abuse - pt states he has never had withdrawal symptoms, chronic low back pain/sciatica/spurs/disc disease - much improved after back injections, past urinary retention, diverticulitis/benign colon polyps removed, nephrolithiasis - passed stones on his own, shingelles 16 years ago - R shoulder. Last Myocardial Infarction Date:: 2010 History of Any Multi-Drug Resistant Organisms: None Reported Past Surgical History: Heart Catheterization With Stent Additional Past Surgical History / Comment(s): back injections for pain, piece of metal removed from right eye, EGD, colonoscopy Past Anesthesia/Blood Transfusion Reactions: No Reported Reaction Additional Past Anesthesia/Blood Transfusion Reaction / Comment(s): cla ustrophobia Date of Last Stent Placement:: 2010 Past Psychological History: Anxiety, Depression, PTSD Smoking Status: Former smoker Past Alcohol Use History: None Reported Past Drug Use History: None Reported - Past Family History Mother Family Medical History: Cancer Additional Family Medical History / Comment(s): from breast cancer at age 53. Father Family Medical History: Coronary Artery Disease (CAD), Myocardial Infarction (MT) Additional Family Medical History / Comment(s): 4 MIs/CABG. at age 72. Medications and Allergies Home Medications Medication Instructions Recorded Confirmed Type Aspirin EC [Ecotrin Low Dose] 81 mg PO DAILY 06/22/18 07/28/24 History Budesonide/Formoterol Fumarate 2 puff INHALATION RT-BID 06/22/18 07/28/24 History [Symbicort 160-4.5 Mcg Inhaler] Ipratropium/Albuterol Sulfate 1 puff INHALATION RT-QID 06/22/18 07/28/24 History [Combivent Respimat Inhaler] Metoprolol Tartrate [Lopressor] 25 mg PO BID 06/22/18 07/28/24 History Clopidogrel Bisulfate [Plavix] 75 mg PO DAILY 07/01/18 07/28/24 History Albuterol Inhaler [Ventolin Hfa 2 puff INHALATION RT-TID PRN 12/07/19 07/28/24 History Inhaler] Albuterol Nebulized [Ventolin 2.5 mg INHALATION RT-QID 12/07/19 07/28/24 History Nebulized] Loratadine [Claritin] 10 mg PO DAILY 12/07/19 07/28/24 History Simvastatin [Zocor] 40 mg PO HS 12/07/19 07/28/24 History Tiotropium 18 Mcg/Puff [Spiriva] 2 puff INHALATION RT-DAILY 12/07/19 07/28/24 History Cholecalciferol [Vitamin D3 (25 25 mcg PO BID 03/17/24 07/28/24 History Mcg = 1000 Iu)] Ferrous Sulfate [Iron (65 MG 325 mg PO W/LUNCH 04/06/24 07/28/24 History Elemental)] Folic Acid 1 mg PO DAILY 04/06/24 07/28/24 History Vitamin B-12 50mcg 50 mcg PO DAILY 04/06/24 07/28/24 History Furosemide [Lasix] 20 mg PO DAILY 04/16/24 07/28/24 History Azithromycin [Zithromax] 500 mg PO MOWEFR 06/09/24 07/28/24 History Gabapentin [Neurontin] 200 mg PO TID #90 cap 06/11/24 07/28/24 Rx Montelukast [Singulair] 10 mg PO HS #30 tab 06/16/24 07/28/24 Rx Pantoprazole [Protonix] 40 mg PO AC-BRKFST #30 tab 06/16/24 07/28/24 Rx Spironolactone [Aldactone] 25 mg PO DAILY #90 tab 06/24/24 07/28/24 Rx predniSONE See Taper PO DAILY #18 tab 07/19/24 07/28/24 Rx HYDROcodone/APAP 5-325MG [[place] 1 tab PO TID PRN 07/28/24 07/28/24 History 5-325] Meloxicam [Mobic] 7.5 mg PO DAILY 07/28/24 07/28/24 History Ondansetron Odt [Zofran Odt] 4 mg PO Q8HR PRN 07/28/24 07/28/24 History Allergies Allergy/AdvReac Type Severity Reaction Status Date / Time fluticasone AdvReac Nausea Verified 07/28/24 07:59 [From [facility]] levofloxacin [From Levaquin] AdvReac TENDON PAIN Verified 07/28/24 07:59 salmeterol AdvReac Nausea Verified 07/28/24 07:59 [From [facility]] Physical Exam Vitals: Vital Signs Temp Pulse Resp BP Pulse Ox 07/28/24 10:14 102 H 19 110/82 96 07/28/24 08:36 97.8 F 118 H 19 130/98 96 07/28/24 07:54 97 07/28/24 06:40 97.6 F 106 H 20 116/79 97 07/28/24 05:24 97.5 F L 106 H 20 157/71 97 07/28/24 03:19 108 H 20 111/91 99 07/27/24 23:51 100 07/27/24 23:41 98 07/27/24 23:40 98 07/27/24 23:25 92 07/27/24 21:47 97.5 F L 115 H 26 H 165/86 93 L Intake and Output 07/27/24 07/28/24 07/28/24 22:59 06:59 14:59 Intake Total 280 Output Total 325 Balance -45 Intake: Oral 280 Output: Urine 325 Other: Weight 90.718 kg GENERAL EXAM: Alert, obese, disheveled 78-year-old male, on 4 L of oxygen by nasal cannula., Comfortable. No significant respiratory distress HEAD: Normocephalic. EYES: Normal reaction of pupils, equal size. NOSE: Clear with pink turbinates. THROAT: No erythema or exudates. NECK: No masses, no JVD. CHEST: No chest wall deformity. LUNGS: Equal air entry with crackles in the left lung base. Breath sounds are diminished bilaterally CVS: S1 and S2 normal with no audible murmur, regular rhythm. ABDOMEN: No hepatosplenomegaly, normal bowel sounds, no guarding or rigidity. SPINE: No scoliosis or deformity SKIN: No rashes CENTRAL NERVOUS SYSTEM: No focal deficits, tone is normal in all 4 extremities. EXTREMITIES: There is 1+ peripheral edema. No clubbing, no cyanosis. Peripheral pulses are diminished in the lower extremity especially in the feet bilaterally. No signs of any acute vascular insufficiency or cyanosis. Results - Laboratory Findings CBC and BMP: 07/28/24 03:36 07/28/24 03:36 PT/INR, D-dimer PT 9.9 sec (10.0-12.5) L 07/27/24 22:35 INR 0.9 (<1.2) 07/27/24 22:35 Abnormal lab findings: Abnormal Labs 07/27/24 07/27/24 07/27/24 22:35 22:35 22:35 WBC 19.7 H RBC Hgb 11.9 L Hct 36.6 L Neutrophils # 18.0 H Lymphocytes # 0.7 L PT 9.9 L APTT 19.2 L Sodium 126 L Chloride 82 L Carbon Dioxide 37 H BUN 21 H Glucose 127 H POC Glucose (mg/dL) Troponin I Influenza Type A (PCR) 07/27/24 07/28/24 07/28/24 22:35 00:30 00:53 WBC RBC Hgb Hct Neutrophils # Lymphocytes # PT APTT Sodium Chloride Carbon Dioxide BUN Glucose POC Glucose (mg/dL) Troponin I 0.050 H* 0.049 H* Influenza Type A (PCR) Detected A 07/28/24 07/28/24 07/28/24 00:56 03:36 03:36 WBC 15.8 H RBC 4.21 L Hgb 11.9 L Hct 35.4 L Neutrophils # 14.8 H Lymphocytes # 0.4 L PT APTT Sodium Chloride Carbon Dioxide BUN Glucose POC Glucose (mg/dL) 161 H Troponin I 0.049 H* Influenza Type A (PCR) 07/28/24 07/28/24 03:36 07:42 WBC RBC Hgb Hct Neutrophils # Lymphocytes # PT APTT Sodium 125 L Chloride 81 L Carbon Dioxide 35 H BUN 25 H Glucose 171 H POC Glucose (mg/dL) 173 H Troponin I Influenza Type A (PCR) - Diagnostic Findings Chest x-ray: image reviewed Assessment and Plan Plan: Severe stable COPD with an FEV1 of 29% predicted, maintained on a combination of Breyna/Spiriva on outpatient basis in addition to albuterol updrafts on an insulin basis Chronic hypoxic respiratory failure, maintained on oxygen 3 L/min nasal cannula Chronic dyspnea, secondary to COPD Influenza A infection diagnosed on 07/22/2024, still positive viral screen Leg pain, likely secondary to PAD/claudication. Will benefit from a vascular surgical evaluation. Hypochloremic hyponatremia Abnormal troponin, nonspecific Previous history of sputum culture positive for Stenotrophomonas maltophilia and 05/19/2024 Chronic hypoxemic respiratory failure, secondary to above, normally oxygen dependent on 2-3 L/min nasal cannula mostly at bedtime Normocytic, normochromic anemia, hemoglobin slightly lower than baseline, no obvious acute blood loss Former tobacco dependence Obesity, with a BMI of of above 40 History of hyperlipidemia History of hypertension History of CAD, with previous stenting of the RCA, 2010 History of peripheral arterial disease Bilateral lower extremity edema Plan: Overall respiratory status is stable Recent influenza A infection, viral screen still positive Resume home respiratory medications as maintenance including combination of Symbicort and Spiriva Oxygen therapy and titrate oxygen flow to maintain saturation above 90% IV fluids and monitor electrolytes Cardiology consultation Will benefit from vascular consultation regarding his chronic leg pain and claudication Resume home medications Will follow
[2024-07-29 06:27] LABS: Glucose,Whole Blood 158 mg/dL (70-110)
[2024-07-29 06:42] LABS: Basophils % (A) 0 %; Eosinophils % (A) 0 %; HCT 34.1 % (39.0-53.0); HGB 11.1 gm/dL (13.0-17.5); Lymphocytes % (A) 8 %; MCH 28.1 pg (25.0-35.0); MCHC 32.6 g/dL (31.0-37.0); Mean Platelet Volume 7.5; Monocytes # (A) 0.9 k/uL (0-1.0); Monocytes % (A) 7 %; Neutrophils # (A) 10.7 k/uL (1.3-7.7); Neutrophils % (A) 84 %; Platelet Count 304 k/uL (150-450); RBC 3.97 m/uL (4.30-5.90); RDW 14.9 % (11.5-15.5); WBC 12.8 k/uL (3.8-10.6)
[2024-07-29 08:43] LABS: Blood Urea Nitrogen 26.9 mg/dL (9.0-27.0); Calcium 8.8 mg/dL (8.7-10.3); Carbon Dioxide 33.1 mmol/L (21.6-31.8); Chloride 87 mmol/L (96-109); Glucose 132 mg/dL (70-110); Potassium 4.2 mmol/L (3.5-5.5); Sodium 132 mmol/L (135-145)
--- NOTE | 2024-07-29 10:25 | P.PN ---
Subjective Progress Note Date: 07/29/24 HISTORY OF PRESENT ILLNESS: This is a 78-year-old male with a past medical history significant for coronary artery disease with previous stenting, pulmonary hypertension, hypertension hyperlipidemia, and obesity. Patient follows in the office with Dr. Camacho. We have been asked to see the patient in consultation for CHF. Patient examined at the bedside. Patient presented to the ER with shortness of breath and fatigue. Patient was found to be positive for influenza. Patient denies chest pain or pressure. He currently denies shortness of breath. Bedside telemetry reveals atrial tachycardia. DIAGNOSTICS: - EKG reveals sinus tachycardia with nonspecific ST-T wave changes. - Chest xray negative for acute process. COPD changes. Trace left pleural effusion. - Laboratory data: WBC 15.8. Hemoglobin 11.9. Platelet count 353. Sodium 125. Potassium 4.1. BUN 25. Creatinine 0.77. Troponin 0.050. 0.049. 0.049. Positive for influenza A - Current home cardiac medication list includes simvastatin 40 mg daily, metoprolol tartrate 25 mg twice a day, Lasix 20 mg daily, Plavix 75 mg daily -Limited echo performed on 07/17/2024 revealed ejection fraction 40 to 45%, global hypokinesis, mild to moderate pulmonary hypertension - Cardiac catheterization history: February 2011 with stenting to the proximal RCA 07/29 Patient seen and examined on the observation unit. Patient states he came into the hospital due to lower extremity pain. He states the pain in his legs are gone now. Patient has known PAD and is on appropriate medications. He denies having chest pain. He is being treated for severe COPD. Blood pressure 131/78, heart rate 61, pulse ox 98% on 4 L nasal cannula. Repeat blood work reveals WBC 12.8, hemoglobin 1.1, creatinine 1. PHYSICAL EXAM: VITAL SIGNS: Reviewed. GENERAL: Well-developed in no acute distress. HEENT: Head is normocephalic. Pupils are equal, round. Sclerae anicteric. Mucous membranes of the mouth are moist. Neck supple. No JVD or thyromegaly LUNGS: Respirations even and unlabored. Lungs essentially clear to auscultation bilaterally. HEART: Regular rate and rhythm. S1 and S2 heard. ABDOMEN: Soft. Nondistended. Nontender. EXTREMITIES: No clubbing or cyanosis. Peripheral pulses intact. No lower extremity edema NEUROLOGIC: Awake and alert. Oriented x 3. ASSESSMENT: Generalized weakness Acute influenza A Elevated troponins, flat, type II SD secondary to acute influenza A Acute on chronic heart failure with reduced EF Hyponatremia Coronary artery disease with previous stenting to the proximal RCA, 2010 Ischemic cardiomyopathy 40 to 45% Mild to moderate pulmonary hypertension Hypertension Hyperlipidemia Obesity: BMI 32.3 PLAN: No need to repeat echocardiogram as this was performed on 07/17/2024 Continue home cardiac medications as listed above Continue Lasix 40 mg twice a day Continue the addition of losartan 12.5 mg daily No further cardiac workup at this time Cardiology will sign off this case and follow on an as-needed basis. Please reconsult for any new concerns. Patient may follow-up in the office in [address] Camacho. Nurse practitioner note has been reviewed by physician. Signing provider agrees with the documented findings, assessment, and plan of care documented by [employer] as a scribe. Objective - Vital Signs Vital signs: Vital Signs Temp 97.6 F 07/29/24 07:52 Pulse 61 07/29/24 07:52 Resp 15 07/29/24 07:52 BP 131/78 07/29/24 07:52 Pulse Ox 98 07/29/24 07:52 FiO2 Intake & Output 07/28/24 07/29/24 07/29/24 18:59 06:59 18:59 Intake Total 280 Output Total 325 Balance -45 Weight 105.1 kg Intake: Oral 280 Output: Urine 325 Other: Voiding Method Toilet Urinal - Labs CBC & Chem 7: 07/29/24 05:09 07/29/24 05:09 Labs: Abnormal Lab Results - Last 24 Hours (Table) 07/28/24 07/28/24 07/28/24 Range/Units 12:37 17:47 20:35 WBC (3.8-10.6) k/uL RBC (4.30-5.90) m/uL Hgb (13.0-17.5) gm/dL Hct (39.0-53.0) % Neutrophils # (1.3-7.7) k/uL Sodium (135-145) mmol/L Chloride (96-109) mmol/L Carbon Dioxide (21.6-31.8) mmol/L BUN/Creatinine Ratio (12.00-20.00) Ratio Glucose (70-110) mg/dL POC Glucose (mg/dL) 155 H 133 H 170 H (70-110) mg/dL 07/29/24 07/29/24 07/29/24 Range/Units 05:09 05:09 06:25 WBC 12.8 H (3.8-10.6) k/uL RBC 3.97 L (4.30-5.90) m/uL Hgb 11.1 L (13.0-17.5) gm/dL Hct 34.1 L (39.0-53.0) % Neutrophils # 10.7 H (1.3-7.7) k/uL Sodium 132 L (135-145) mmol/L Chloride 87 L (96-109) mmol/L Carbon Dioxide 33.1 H (21.6-31.8) mmol/L BUN/Creatinine Ratio 26.90 H (12.00-20.00) Ratio Glucose 132 H (70-110) mg/dL POC Glucose (mg/dL) 158 H (70-110) mg/dL
[2024-07-29] MEDS: methylPREDNISolone SOD SUCCI 125 MG/2 ML VIAL IV SCH (10:31)
[2024-07-29] MEDS: AZITHROMYCIN 500 MG TAB PO SCH (10:31)
--- NOTE | 2024-07-29 11:37 | P.PN ---
Subjective Progress Note Date: 07/29/24 78 year old M with PMH COPD (on 3L at night), HFpEF entheses most recent echocardiogram on 04/11/2024 showed EF 55-60%), CAD with multiple stents, hypertension, None insulin-dependent diabetes mellitus, history of PE, hyperlipidemia presenting with worsening shortness of breath and bilateral foot numbness. Patient states numbness began earlier this morning on bilateral plantar surface extending to the ankles. Patient was recently admitted for acute on chronic hypoxic respiratory failure secondary to influenza A. Patient states his shortness of breath has gotten worse. Dyspnea made worse on exertion. Patient admits to orthopnea. Endorses a cough however denies any sputum production. Patient notices legs have been swollen as well. Denies any fevers, chills, headache, chest pain, abdominal pain, nausea, vomiting, diarrhea, abdominal pain, urinary symptoms. 07/29 - He is seen and examined at bedside this morning, now on the 6th floor. He was seen and evaluated cardiology as well as pulmonology. Per cardiology, no need to repeat echocardiogram as most recent was performed on 07/17/2024, will continue with home cardiac medications, continuing with Lasix 40 mg IV twice daily, add losartan 12.5 mg daily. Pulmonology added Solu-Medrol 60 mg IV every 6 hours. He has no acute complaints at this time, resting comfortably in bed. Continues utilize 4 L nasal cannula, while saturating in the high 90%. Continue to wean oxygen as possible while maintaining [id number]%. REVIEW OF SYSTEMS: Pertinent positives and negatives noted in HPI. Physical examination: Vital signs reviewed General: In moderate distress, appears at stated age, obese; currently on 4 L nasal cannula Derm: no unusual rashes/lesions, warm Head: atraumatic, normocephalic, symmetric Eyes: EOMI, anicteric sclera, pupils equal round reactive to light ENT: Nose and ears atraumatic Neck: No cervical lymphadenopathy, trachea midline, supple Mouth: no lip lesion, mucus membranes moist Cardiovascular: S1S2 reg, no murmur, positive dorsalis pedis pulse bilateral, bilateral lower extremity 2+ pitting edema to knees Lungs: Diminished lung sounds bilaterally, bilateral inspiratory/expiratory wheezing, crackles Abdominal: soft, non-tender to palpation, no guarding Ext: muscle strength 5 out of 5 in all 4 extremities grossly, no gross muscle atrophy Neuro: CN II-XI grossly intact, no gross focal neuro deficits Psych: Alert, oriented to person, place, and time Data Received Today: Labs: WBC 12.8, hemoglobin 11.1 hematocrit 34.1, platelet 304; sodium 132, chloride 87, bicarb 33.1, BUN 26.9, creatinine 1.0 Imagining: No new imaging today Assessment and plan 78 year old M with PMH COPD (on 3L at night), HFpEF (most recent echocardiogram in 04/11/2024 showed EF of 55-60%), CAD with multiple stents, hypertension, wss-[id number] diabetes mellitus, history of PE not anticoagulated, hyperlipidemia presenting with worsening shortness of breath. ED documentation reviewed. Discussed with the patient. The patient is admitted with an anticipated greater than 2 midnight stay for evaluation of acute on chronic hypoxic hypercapnic respiratory failure secondary to acute HFpEF exacerbation and acute COPD exacerbation. #Acute on chronic hypoxic hypercapnic respiratory failure, with viral panel positive for influenza A #Overlying acute COPD exacerbation (on 3 L home oxygen at night only) #Type II NSTEMI -Resume home breathing treatment of Spiriva, Symbicort, Singulair -DuoNebs [id number] and as needed -Continue Solu-Medrol 60 mg IV every 6 hours -On 4 L nasal cannula, continue to wean down, keep O2 between 88-92% -Cepheid 4 Plex influenza A positive -Azithromycin 500mg x 3 days for COPD prophylaxis -Pulmonology following #Acute HFpEF exacerbation (most recent echocardiogram on 04/11/2024 showed EF 55-60%), resolved #Hypervolemic hyponatremia, improving #Metabolic alkalosis, improving -Troponin trend: 0.050 -> 0.049 -> 0.049 -proBNP 1350 -WBC 12.8, patient afebrile, no signs of infection -Daily weights, I's and O's -Heart healthy diet with fluid restriction of 1.5 L -Cardiac telemetry -Continue with Lasix 40 mg PO q12hr, monitor electrolytes -Continue Lopressor 25 mg p.o. twice daily and Aldactone 25 mg p.o. daily -Cardiology following #Phd-gmxwhha-vpflzghdu diabetes mellitus -Humalog insulin SQ sliding scale -Accu-Cheks ACHS -Monitor for hypoglycemia #Neuropathy -Continue gabapentin 200 mg PO TID #CAD -Continue aspirin 81 mg p.o. daily -Lipitor 20 mg p.o. at bedtime #GERD -Protonix 40 mg PO QD #Normocytic anemia -Likely from chronic disease -No acute bleeding -Continue ferrous sulfate 325 mg p.o. daily -Folic acid 1 mg p.o. daily DVT prophylaxis: Heparin 5000 unit SQ every 8 hours Code status: Full code F: None E: Replete as needed N: Heart healthy diet with 1500 cc fluid restriction A: Wheelchair Anticipated discharge place: Pending clinical course Anticipated discharge time: Pending clinical course Dictation was produced using [employer] dictation software. please excuse any grammatical, word or spelling errors. En Costello MD PGY-1 IM I saw and evaluated the patient during the luu and critical portions of this encounter, and discussed the case in detail with the resident author of this note, I agree with the Assessment and Plan, and my changes, if any, are highlighted in blue. This patient is felt to be predominantly COPD exacerbation over heart failure with preserved ejection fraction. Agree with increasing steroid dosing per pulmonology. And transitioning to p.o. Lasix. Objective - Vital Signs Vital signs: Vital Signs Temp 98.3 F 07/29/24 02:10 Pulse 104 H 07/29/24 07:47 Resp 15 07/29/24 02:10 BP 119/68 07/29/24 02:10 Pulse Ox 98 07/29/24 02:10 FiO2 Intake & Output 07/28/24 07/29/24 07/29/24 18:59 06:59 18:59 Intake Total 280 Output Total 325 Balance -45 Weight 105.1 kg Intake: Oral 280 Output: Urine 325 Other: Voiding Method Toilet Urinal - Labs CBC & Chem 7: 07/29/24 05:09 07/29/24 05:09 Labs: Abnormal Lab Results - Last 24 Hours (Table) 07/28/24 07/28/24 07/28/24 Range/Units 12:37 17:47 20:35 WBC (3.8-10.6) k/uL RBC (4.30-5.90) m/uL Hgb (13.0-17.5) gm/dL Hct (39.0-53.0) % Neutrophils # (1.3-7.7) k/uL POC Glucose (mg/dL) 155 H 133 H 170 H (70-110) mg/dL 07/29/24 07/29/24 Range/Units 05:09 06:25 WBC 12.8 H (3.8-10.6) k/uL RBC 3.97 L (4.30-5.90) m/uL Hgb 11.1 L (13.0-17.5) gm/dL Hct 34.1 L (39.0-53.0) % Neutrophils # 10.7 H (1.3-7.7) k/uL POC Glucose (mg/dL) 158 H (70-110) mg/dL
[2024-07-29 12:11] LABS: Glucose,Whole Blood 153 mg/dL (70-110)
[2024-07-29 14:07] VITALS: BMI 37.3
[2024-07-29 17:27] LABS: Glucose,Whole Blood 233 mg/dL (70-110)
--- NOTE | 2024-07-29 17:43 | P.PN ---
Subjective Progress Note Date: 07/29/24 This is a 78-year-old male patient presented to the hospital because of pain lower extremity essentially exertion. He also has some chronic numbness along with the pain in his feet bilaterally. He has chronic lower extremity edema. He has noted multiple comorbidities. Specifically, the patient has previous history of COPD with an FEV1 of 29% of predicted. The patient was hospitalized on 07/18/2024 and seen by pulmonology for acute COPD exacerbation and influenza A infection. At that time, the patient was treated appropriately and he was discharged home. He had a similar hospitalization back in April 2024 and at that time the patient has stenotrophomonas in his lungs, treated appropriately. The patient has chronic hypoxic rosy failure maintained on oxygen 3 L of oxygen by nasal cannula. He has been maintained on a combination of Breyna and Spiriva on an outpatient basis. He has had multiple hospitalization for COPD extubation essentially related to various respiratory infections. He is also known to have peripheral vascular disease, hypertension, hyperlipidemia, coronary artery disease, obesity, and the patient is a former smoker. His previous echocardiogram from March 2024 has shown an ejection fraction of 55 to 60% along with mild dilatation of the RV. Previous arterial Dopplers of the lower extremity showed a normal ankle-brachial indices bilaterally. There is mild decrease in bilateral toe brachial intake suggested of mild distal lower extremity PAD. Previous CT angiogram of the lower extremity done on 02/26/2024 showed moderate atherosclerotic stenosis throughout the right lower extremity. More severe focal stenosis involving the mid right external iliac artery, proximal anterior tibial artery and there was satisfactory runoff via the posterior tibial artery. Neither the anterior tibial artery or the peroneal artery were seen beyond the distal leg level. Previous Doppler of the lower extremity from April 2024 showed no evidence of DVT. His current white cell count is at 15.8, hemoglobin is 11.9 and platelet count of 353. Sodium level is 125, bicarb 25, BUN 25 with a creatinine of 0.77. Chloride is at 81. Troponin is at 0.04. Normal LFTs. Chest x-ray was reviewed no chest x-ray from this current admission. Oxygenation remained stable and the patient is currently on 4 L of oxygen by nasal cannula with a pulse ox of 97%. On 07/29/2024, the patient is still having some shortness of breath. Limited cough and congestion and wheezing. Denies having any leg pain. Continues to have some edema in lower extremities bilaterally. He remains on DuoNeb updrafts. He is on Symbicort as maintenance. Remains on IV Solu-Medrol. He is also on Lasix 40 mg p.o. twice a day. Blood work from today shows a white cell count of 12 hemoglobin of 11 and a platelet count of 304. Electrolytes show a sodium level of 132, bicarb is 33, BUN 26 with a creatinine of 1.0. Calcium level is at 8.8. No other significant events overnight. Tolerating diet. No nausea or emesis. Remains on 40 of oxygen by nasal cannula with a pulse ox of 98%. Objective - Vital Signs Vital signs: Vital Signs Temp 97.6 F 07/29/24 07:52 Pulse 61 07/29/24 07:52 Resp 15 07/29/24 07:52 BP 131/78 07/29/24 07:52 Pulse Ox 98 07/29/24 07:52 FiO2 Intake & Output 07/28/24 07/29/24 07/29/24 18:59 06:59 18:59 Intake Total 280 Output Total 325 Balance -45 Weight 105.1 kg Intake: Oral 280 Output: Urine 325 Other: Voiding Method Toilet Urinal - Exam GENERAL EXAM: Alert, obese, disheveled 78-year-old male, on 4 L of oxygen by nasal cannula., Comfortable. No significant respiratory distress HEAD: Normocephalic. EYES: Normal reaction of pupils, equal size. NOSE: Clear with pink turbinates. THROAT: No erythema or exudates. NECK: No masses, no JVD. CHEST: No chest wall deformity. LUNGS: Equal air entry with crackles in the left lung base. Breath sounds are diminished bilaterally CVS: S1 and S2 normal with no audible murmur, regular rhythm. ABDOMEN: No hepatosplenomegaly, normal bowel sounds, no guarding or rigidity. SPINE: No scoliosis or deformity SKIN: No rashes CENTRAL NERVOUS SYSTEM: No focal deficits, tone is normal in all 4 extremities. EXTREMITIES: There is 1+ peripheral edema. No clubbing, no cyanosis. Peripheral pulses are diminished in the lower extremity especially in the feet bilaterally. No signs of any acute vascular insufficiency or cyanosis. - Labs CBC & Chem 7: 07/29/24 05:09 07/29/24 05:09 Labs: Abnormal Lab Results - Last 24 Hours (Table) 07/28/24 07/28/24 07/28/24 Range/Units 12:37 17:47 20:35 WBC (3.8-10.6) k/uL RBC (4.30-5.90) m/uL Hgb (13.0-17.5) gm/dL Hct (39.0-53.0) % Neutrophils # (1.3-7.7) k/uL Sodium (135-145) mmol/L Chloride (96-109) mmol/L Carbon Dioxide (21.6-31.8) mmol/L BUN/Creatinine Ratio (12.00-20.00) Ratio Glucose (70-110) mg/dL POC Glucose (mg/dL) 155 H 133 H 170 H (70-110) mg/dL 07/29/24 07/29/24 07/29/24 Range/Units 05:09 05:09 06:25 WBC 12.8 H (3.8-10.6) k/uL RBC 3.97 L (4.30-5.90) m/uL Hgb 11.1 L (13.0-17.5) gm/dL Hct 34.1 L (39.0-53.0) % Neutrophils # 10.7 H (1.3-7.7) k/uL Sodium 132 L (135-145) mmol/L Chloride 87 L (96-109) mmol/L Carbon Dioxide 33.1 H (21.6-31.8) mmol/L BUN/Creatinine Ratio 26.90 H (12.00-20.00) Ratio Glucose 132 H (70-110) mg/dL POC Glucose (mg/dL) 158 H (70-110) mg/dL Assessment and Plan Plan: Severe stable COPD with an FEV1 of 29% predicted, maintained on a combination of Breyna/Spiriva on outpatient basis in addition to albuterol updrafts Chronic hypoxic respiratory failure, maintained on oxygen 3 L/min nasal cannula Chronic dyspnea, secondary to COPD Influenza A infection diagnosed on 07/22/2024, still positive viral screen Leg pain, likely secondary to PAD/claudication. Will benefit from a vascular surgical evaluation. Hypochloremic hyponatremia Abnormal troponin, nonspecific Previous history of sputum culture positive for Stenotrophomonas maltophilia and 05/19/2024 Chronic hypoxemic respiratory failure, secondary to above, normally oxygen dependent on 2-3 L/min nasal cannula mostly at bedtime Normocytic, normochromic anemia, hemoglobin slightly lower than baseline, no obvious acute blood loss Former tobacco dependence Obesity, with a BMI of of above 40 History of hyperlipidemia History of hypertension History of CAD, with previous stenting of the RCA, 2010 History of peripheral arterial disease Bilateral lower extremity edema Plan: Overall respiratory status is stable. No new complaints and the patient is being treated with a combination of bronchodilators and steroids and diuretics and the patient is currently on Lasix 40 mg p.o. twice a day. No foot pain He has chronic claudication Recent influenza A infection, viral screen still positive Resume home respiratory medications as maintenance including combination of Symbicort and Spiriva Oxygen therapy and titrate oxygen flow to maintain saturation above 90% IV fluids and monitor electrolytes Cardiology consultation is appreciated Will benefit from vascular consultation regarding his chronic leg pain and claudication Resume home medications Will follow
[2024-07-29 19:56] LABS: Glucose,Whole Blood 264 mg/dL (70-110)
[2024-07-30 04:48] LABS: Basophils % (A) 0 %; Eosinophils % (A) 0 %; HCT 35.2 % (39.0-53.0); HGB 11.7 gm/dL (13.0-17.5); Lymphocytes # (A) 0.5 k/uL (1.0-4.8); Lymphocytes % (A) 4 %; MCH 28.5 pg (25.0-35.0); MCHC 33.2 g/dL (31.0-37.0); Mean Platelet Volume 7.4; Monocytes # (A) 0.3 k/uL (0-1.0); Monocytes % (A) 2 %; Neutrophils # (A) 12.9 k/uL (1.3-7.7); Neutrophils % (A) 93 %; Platelet Count 320 k/uL (150-450); RBC 4.09 m/uL (4.30-5.90); RDW 14.6 % (11.5-15.5); WBC 13.8 k/uL (3.8-10.6)
[2024-07-30 05:01] LABS: African American GFR (CKD) >90 (>60 ml/min/1.73 sqM); Anion Gap 9 mmol/L; Blood Urea Nitrogen 32 mg/dL (9-20); Calcium 9.1 mg/dL (8.4-10.2); Carbon Dioxide 33 mmol/L (22-30); Chloride 83 mmol/L (98-107); Glucose 168 mg/dL (74-99); Non-African American GFR(CKD) 84 (>60 ml/min/1.73 sqM); Potassium 4.3 mmol/L (3.5-5.1); Sodium 125 mmol/L (137-145)
[2024-07-30 06:07] LABS: Glucose,Whole Blood 171 mg/dL (70-110)
[2024-07-30 12:13] LABS: Glucose,Whole Blood 227 mg/dL (70-110)
--- NOTE | 2024-07-30 13:41 | P.PN ---
Subjective Progress Note Date: 07/30/24 78 year old M with PMH COPD (on 3L at night), HFpEF entheses most recent echocardiogram on 04/11/2024 showed EF 55-60%), CAD with multiple stents, hypertension, None insulin-dependent diabetes mellitus, history of PE, hyperlipidemia presenting with worsening shortness of breath and bilateral foot numbness. Patient states numbness began earlier this morning on bilateral plantar surface extending to the ankles. Patient was recently admitted for acute on chronic hypoxic respiratory failure secondary to influenza A. Patient states his shortness of breath has gotten worse. Dyspnea made worse on exertion. Patient admits to orthopnea. Endorses a cough however denies any sputum production. Patient notices legs have been swollen as well. Denies any fevers, chills, headache, chest pain, abdominal pain, nausea, vomiting, diarrhea, abdominal pain, urinary symptoms. 07/29 - He is seen and examined at bedside this morning, now on the 6th floor. He was seen and evaluated cardiology as well as pulmonology. Per cardiology, no need to repeat echocardiogram as most recent was performed on 07/17/2024, will continue with home cardiac medications, continuing with Lasix 40 mg IV twice daily, add losartan 12.5 mg daily. Pulmonology added Solu-Medrol 60 mg IV every 6 hours. He has no acute complaints at this time, resting comfortably in bed. Continues utilize 4 L nasal cannula, while saturating in the high 90%. Continue to wean oxygen as possible while maintaining [id number]%. 07/30 - He is seen and examined at bedside this morning. He had no acute events overnight and has no acute concerns this morning. Feels as though if he were to go home now, will be relying on others to help take care of him which is not something he wants. Says he feels [facility] and comfortable recovering here. REVIEW OF SYSTEMS: Pertinent positives and negatives noted in HPI. Physical examination: Vital signs reviewed General: In moderate distress, appears at stated age, obese; currently on 4 L nasal cannula Derm: no unusual rashes/lesions, warm Head: atraumatic, normocephalic, symmetric Eyes: EOMI, anicteric sclera, pupils equal round reactive to light ENT: Nose and ears atraumatic Neck: No cervical lymphadenopathy, trachea midline, supple Mouth: no lip lesion, mucus membranes moist Cardiovascular: S1S2 reg, no murmur, positive dorsalis pedis pulse bilateral, bilateral lower extremity 2+ pitting edema to knees Lungs: Diminished lung sounds bilaterally, bilateral inspiratory/expiratory whee zing, crackles Abdominal: soft, non-tender to palpation, no guarding Ext: muscle strength 5 out of 5 in all 4 extremities grossly, no gross muscle atrophy Neuro: CN II-XI grossly intact, no gross focal neuro deficits Psych: Alert, oriented to person, place, and time Data Received Today: Labs: WBC 12.8, hemoglobin 11.1 hematocrit 34.1, platelet 304; sodium 132, chloride 87, bicarb 33.1, BUN 26.9, creatinine 1.0 Imagining: No new imaging today Assessment and plan 78 year old M with PMH COPD (on 3L at night), HFpEF (most recent echocardiogram in 04/11/2024 showed EF of 55-60%), CAD with multiple stents, hypertension, [id number] diabetes mellitus, history of PE not anticoagulated, hyperlipidemia presenting with worsening shortness of breath. ED documentation reviewed. Discussed with the patient. The patient is admitted with an anticipated greater than 2 midnight stay for evaluation of acute on chronic hypoxic hypercapnic respiratory failure secondary to acute HFpEF exacerbation and acute COPD exacerbation. #Acute on chronic hypoxic hypercapnic respiratory failure, with viral panel positive for influenza A #Overlying acute COPD exacerbation (on 3 L home oxygen at night only) #Type II NSTEMI -Resume home breathing treatment of Spiriva, Symbicort, Singulair -DuoNebs [id number] and as needed -Continue Solu-Medrol 60 mg IV every 6 hours -On 4 L nasal cannula, continue to wean down, keep O2 between 88-92% -Azithromycin 500 mg x 3 days for COPD prophylaxis -Cepheid 4 Plex influenza A positive -Pulmonology following #Acute HFpEF exacerbation (most recent echocardiogram on 04/11/2024 showed EF 55-60%) #Hypervolemic hyponatremia, improving #Metabolic alkalosis, improving -Troponin trend: 0.050 -> 0.049 -> 0.049 -proBNP 1350 -WBC 12.8, patient afebrile, no signs of infection -Daily weights, I's and O's -Heart healthy diet with fluid restriction of 1.5 L -Cardiac telemetry -Continue with Lasix 40 mg PO q12hr, monitor electrolytes -Continue Lopressor 25 mg p.o. twice daily and Aldactone 25 mg p.o. daily -Cardiology following #Csg-tfocixh-fqdkrbbku diabetes mellitus -Humalog insulin SQ sliding scale -Accu-Cheks ACHS -Monitor for hypoglycemia #Neuropathy -Continue gabapentin 200 mg PO TID #CAD -Continue aspirin 81 mg p.o. daily -Lipitor 20 mg p.o. at bedtime #GERD -Protonix 40 mg PO QD #Normocytic anemia -Likely from chronic disease -No acute bleeding -Continue ferrous sulfate 325 mg p.o. daily -Folic acid 1 mg p.o. daily DVT prophylaxis: Heparin 5000 unit SQ every 8 hours Code status: Full code F: None E: Replete as needed N: Heart healthy diet with 1500 cc fluid restriction A: Wheelchair Anticipated discharge place: Pending clinical course Anticipated discharge time: Pending clinical course Dictation was produced using [employer] dictation software. please excuse any grammatical, word or spelling errors. En Costello MD PGY-1 IM I saw and evaluated the patient during the luu and critical portions of this encounter, and discussed the case in detail with the resident author of this note, I agree with the Assessment and Plan, and my changes, if any, are highlighted in blue. Objective - Vital Signs Vital signs: Vital Signs Temp 97.7 F 07/30/24 01:12 Pulse 85 07/30/24 01:12 Resp 15 07/30/24 01:12 BP 112/80 07/30/24 01:12 Pulse Ox 91 L 07/30/24 08:01 FiO2 Intake & Output 07/29/24 07/30/24 07/30/24 18:59 06:59 18:59 Weight 105.1 kg 70 kg Other: Voiding Method Toilet Urinal - Labs CBC & Chem 7: 07/30/24 04:15 07/30/24 04:15 Labs: Abnormal Lab Results - Last 24 Hours (Table) 07/29/24 07/29/24 07/29/24 Range/Units 05:09 12:10 17:26 WBC (3.8-10.6) k/uL RBC (4.30-5.90) m/uL Hgb (13.0-17.5) gm/dL Hct (39.0-53.0) % Neutrophils # (1.3-7.7) k/uL Lymphocytes # (1.0-4.8) k/uL Sodium 132 L (135-145) mmol/L Chloride 87 L (96-109) mmol/L Carbon Dioxide 33.1 H (21.6-31.8) mmol/L BUN (9-20) mg/dL BUN/Creatinine Ratio 26.90 H (12.00-20.00) Ratio Glucose 132 H (70-110) mg/dL POC Glucose (mg/dL) 153 H 233 H (70-110) mg/dL 07/29/24 07/30/24 07/30/24 Range/Units 19:55 04:15 04:15 WBC 13.8 H (3.8-10.6) k/uL RBC 4.09 L (4.30-5.90) m/uL Hgb 11.7 L (13.0-17.5) gm/dL Hct 35.2 L (39.0-53.0) % Neutrophils # 12.9 H (1.3-7.7) k/uL Lymphocytes # 0.5 L (1.0-4.8) k/uL Sodium 125 L (135-145) mmol/L Chloride 83 L (96-109) mmol/L Carbon Dioxide 33 H (21.6-31.8) mmol/L BUN 32 H (9-20) mg/dL BUN/Creatinine Ratio (12.00-20.00) Ratio Glucose 168 H (70-110) mg/dL POC Glucose (mg/dL) 264 H (70-110) mg/dL 07/30/24 Range/Units 06:06 WBC (3.8-10.6) k/uL RBC (4.30-5.90) m/uL Hgb (13.0-17.5) gm/dL Hct (39.0-53.0) % Neutrophils # (1.3-7.7) k/uL Lymphocytes # (1.0-4.8) k/uL Sodium (135-145) mmol/L Chloride (96-109) mmol/L Carbon Dioxide (21.6-31.8) mmol/L BUN (9-20) mg/dL BUN/Creatinine Ratio (12.00-20.00) Ratio Glucose (70-110) mg/dL POC Glucose (mg/dL) 171 H (70-110) mg/dL
[2024-07-30] MEDS ORDERED: LACTATED RINGERS 1,000 ML IV SCH ×2 (15:00)
--- NOTE | 2024-07-30 16:18 | P.PN ---
Subjective Progress Note Date: 07/30/24 This is a 78-year-old male patient presented to the hospital because of pain lower extremity essentially exertion. He also has some chronic numbness along with the pain in his feet bilaterally. He has chronic lower extremity edema. He has noted multiple comorbidities. Specifically, the patient has previous history of COPD with an FEV1 of 29% of predicted. The patient was hospitalized on 07/18/2024 and seen by pulmonology for acute COPD exacerbation and influenza A infection. At that time, the patient was treated appropriately and he was discharged home. He had a similar hospitalization back in April 2024 and at that time the patient has stenotrophomonas in his lungs, treated appropriately. The patient has chronic hypoxic rosy failure maintained on oxygen 3 L of oxygen by nasal cannula. He has been maintained on a combination of Breyna and Spiriva on an outpatient basis. He has had multiple hospitalization for COPD extubation essentially related to various respiratory infections. He is also known to have peripheral vascular disease, hypertension, hyperlipidemia, coronary artery disease, obesity, and the patient is a former smoker. His previous echocardiogram from March 2024 has shown an ejection fraction of 55 to 60% along with mild dilatation of the RV. Previous arterial Dopplers of the lower extremity showed a normal ankle-brachial indices bilaterally. There is mild decrease in bilateral toe brachial intake suggested of mild distal lower extremity PAD. Previous CT angiogram of the lower extremity done on 02/26/2024 showed moderate atherosclerotic stenosis throughout the right lower extremity. More severe focal stenosis involving the mid right external iliac artery, proximal anterior tibial artery and there was satisfactory runoff via the posterior tibial artery. Neither the anterior tibial artery or the peroneal artery were seen beyond the distal leg level. Previous Doppler of the lower extremity from April 2024 showed no evidence of DVT. His current white cell count is at 15.8, hemoglobin is 11.9 and platelet count of 353. Sodium level is 125, bicarb 25, BUN 25 with a creatinine of 0.77. Chloride is at 81. Troponin is at 0.04. Normal LFTs. Chest x-ray was reviewed no chest x-ray from this current admission. Oxygenation remained stable and the patient is currently on 4 L of oxygen by nasal cannula with a pulse ox of 97%. On 07/29/2024, the patient is still having some shortness of breath. Limited cough and congestion and wheezing. Denies having any leg pain. Continues to have some edema in lower extremities bilaterally. He remains on DuoNeb updrafts. He is on Symbicort as maintenance. Remains on IV Solu-Medrol. He is also on Lasix 40 mg p.o. twice a day. Blood work from today shows a white cell count of 12 hemoglobin of 11 and a platelet count of 304. Electrolytes show a sodium level of 132, bicarb is 33, BUN 26 with a creatinine of 1.0. Calcium level is at 8.8. No other significant events overnight. Tolerating diet. No nausea or emesis. Remains on 40 of oxygen by nasal cannula with a pulse ox of 98%. 07/30/2024, patient is being seen for a follow-up. Slightly improved compared to yesterday. Lower extremity edema still present. The patient is on Lasix 40 mg every 12 hours. Remains on bronchodilators. Remains on steroids. Continues to have a congested cough. Sodium levels at 125, potassium level is at 4.3, BUN 32 with a creatinine of 0.8. The white cell count is at 13.8 with a hemoglobin of 11.7. Objective - Vital Signs Vital signs: Vital Signs Temp 97.6 F 07/30/24 12:00 Pulse 80 07/30/24 15:28 Resp 17 07/30/24 12:00 BP 115/79 07/30/24 12:00 Pulse Ox 96 07/30/24 12:00 FiO2 Intake & Output 07/29/24 07/30/24 07/30/24 18:59 06:59 18:59 Intake Total 118 Balance 118 Weight 105.1 kg 70 kg Intake: Oral 118 Other: Voiding Method Toilet Toilet Urinal Urinal - Exam GENERAL EXAM: Alert, obese, disheveled 78-year-old male, on 4 L of oxygen by nasal cannula., Comfortable. No significant respiratory distress HEAD: Normocephalic. EYES: Normal reaction of pupils, equal size. NOSE: Clear with pink turbinates. THROAT: No erythema or exudates. NECK: No masses, no JVD. CHEST: No chest wall deformity. LUNGS: Equal air entry with crackles in the left lung base. Breath sounds are diminished bilaterally CVS: S1 and S2 normal with no audible murmur, regular rhythm. ABDOMEN: No hepatosplenomegaly, normal bowel sounds, no guarding or rigidity. SPINE: No scoliosis or deformity SKIN: No rashes CENTRAL NERVOUS SYSTEM: No focal deficits, tone is normal in all 4 extremities. EXTREMITIES: There is 1+ peripheral edema. No clubbing, no cyanosis. Peripheral pulses are diminished in the lower extremity especially in the feet bilaterally. No signs of any acute vascular insufficiency or cyanosis. - Labs CBC & Chem 7: 07/30/24 04:15 07/30/24 04:15 Labs: Abnormal Lab Results - Last 24 Hours (Table) 07/29/24 07/29/24 07/30/24 Range/Units 17:26 19:55 04:15 WBC 13.8 H (3.8-10.6) k/uL RBC 4.09 L (4.30-5.90) m/uL Hgb 11.7 L (13.0-17.5) gm/dL Hct 35.2 L (39.0-53.0) % Neutrophils # 12.9 H (1.3-7.7) k/uL Lymphocytes # 0.5 L (1.0-4.8) k/uL Sodium (137-145) mmol/L Chloride (98-107) mmol/L Carbon Dioxide (22-30) mmol/L BUN (9-20) mg/dL Glucose (74-99) mg/dL POC Glucose (mg/dL) 233 H 264 H (70-110) mg/dL 07/30/24 07/30/24 07/30/24 Range/Units 04:15 06:06 12:11 WBC (3.8-10.6) k/uL RBC (4.30-5.90) m/uL Hgb (13.0-17.5) gm/dL Hct (39.0-53.0) % Neutrophils # (1.3-7.7) k/uL Lymphocytes # (1.0-4.8) k/uL Sodium 125 L (137-145) mmol/L Chloride 83 L (98-107) mmol/L Carbon Dioxide 33 H (22-30) mmol/L BUN 32 H (9-20) mg/dL Glucose 168 H (74-99) mg/dL POC Glucose (mg/dL) 171 H 227 H (70-110) mg/dL Assessment and Plan Plan: Severe stable COPD with an FEV1 of 29% predicted, maintained on a combination of Breyna/Spiriva on outpatient basis in addition to albuterol [facility] Chronic hypoxic respiratory failure, maintained on oxygen 3 L/min nasal cannula Chronic dyspnea, secondary to COPD Influenza A infection diagnosed on 07/22/2024, still positive viral screen Leg pain, likely secondary to PAD/claudication. Will benefit from a vascular surgical evaluation. Hypochloremic hyponatremia Abnormal troponin, nonspecific Previous history of sputum culture positive for Stenotrophomonas maltophilia and 05/19/2024 Chronic hypoxemic respiratory failure, secondary to above, normally oxygen dependent on 2-3 L/min nasal cannula mostly at bedtime Normocytic, normochromic anemia, hemoglobin slightly lower than baseline, no obvious acute blood loss Former tobacco dependence Obesity, with a BMI of of above 40 History of hyperlipidemia History of hypertension History of CAD, with previous stenting of the RCA, 2010 History of peripheral arterial disease Bilateral lower extremity edema Plan: Overall respiratory status is stable. No new complaints and the patient is being treated with a combination of bronchodilators and steroids and diuretics and the patient is currently on Lasix 40 mg p.o. twice a day. Still bronchospastic and wheezy and the patient will be kept on IV Solu-Medrol now No foot pain He has chronic claudication Recent influenza A infection, viral screen still positive Resume home respiratory medications as maintenance including combination of Symbicort and Spiriva Oxygen therapy and titrate oxygen flow to maintain saturation above 90% IV fluids and monitor electrolytes Cardiology consultation is appreciated Will benefit from vascular consultation regarding his chronic leg pain and claudication Resume home medications Will follow
[2024-07-30 17:30] LABS: Glucose,Whole Blood 179 mg/dL (70-110)
[2024-07-30 21:30] LABS: Glucose,Whole Blood 250 mg/dL (70-110)
[2024-07-31 05:30] LABS: Glucose,Whole Blood 235 mg/dL (70-110)
[2024-07-31 06:42] LABS: Basophils # (A) 0.2 k/uL (0-0.2); Basophils % (A) 2 %; Eosinophils % (A) 0 %; HCT 35.5 % (39.0-53.0); HGB 11.5 gm/dL (13.0-17.5); Lymphocytes # (A) 0.5 k/uL (1.0-4.8); Lymphocytes % (A) 4 %; MCHC 32.4 g/dL (31.0-37.0); MCV 86.3 fL (80.0-100.0); Monocytes # (A) 0.4 k/uL (0-1.0); Monocytes % (A) 3 %; Neutrophils # (A) 12.9 k/uL (1.3-7.7); Neutrophils % (A) 91 %; Platelet Count 366 k/uL (150-450); RBC 4.11 m/uL (4.30-5.90); WBC 14.2 k/uL (3.8-10.6)
[2024-07-31 06:53] LABS: African American GFR (CKD) >90 (>60 ml/min/1.73 sqM); Anion Gap 8 mmol/L; Blood Urea Nitrogen 29 mg/dL (9-20); Calcium 8.7 mg/dL (8.4-10.2); Carbon Dioxide 35 mmol/L (22-30); Chloride 83 mmol/L (98-107); Glucose 167 mg/dL (74-99); Non-African American GFR(CKD) >90 (>60 ml/min/1.73 sqM); Sodium 126 mmol/L (137-145)
[2024-07-31 06:54] LABS: Potassium 4.3 mmol/L (3.5-5.1)
--- NOTE | 2024-07-31 11:56 | P.PN ---
Subjective Progress Note Date: 07/31/24 This is a 78-year-old male patient presented to the hospital because of pain lower extremity essentially exertion. He also has some chronic numbness along with the pain in his feet bilaterally. He has chronic lower extremity edema. He has noted multiple comorbidities. Specifically, the patient has previous history of COPD with an FEV1 of 29% of predicted. The patient was hospitalized on 07/18/2024 and seen by pulmonology for acute COPD exacerbation and influenza A infection. At that time, the patient was treated appropriately and he was discharged home. He had a similar hospitalization back in April 2024 and at that time the patient has stenotrophomonas in his lungs, treated appropriately. The patient has chronic hypoxic rosy failure maintained on oxygen 3 L of oxygen by nasal cannula. He has been maintained on a combination of Breyna and Spiriva on an outpatient basis. He has had multiple hospitalization for COPD extubation essentially related to various respiratory infections. He is also known to have peripheral vascular disease, hypertension, hyperlipidemia, coronary artery disease, obesity, and the patient is a former smoker. His previous echocardiogram from March 2024 has shown an ejection fraction of 55 to 60% along with mild dilatation of the RV. Previous arterial Dopplers of the lower extremity showed a normal ankle-brachial indices bilaterally. There is mild decrease in bilateral toe brachial intake suggested of mild distal lower extremity PAD. Previous CT angiogram of the lower extremity done on 02/26/2024 showed moderate atherosclerotic stenosis throughout the right lower extremity. More severe focal stenosis involving the mid right external iliac artery, proximal anterior tibial artery and there was satisfactory runoff via the posterior tibial artery. Neither the anterior tibial artery or the peroneal artery were seen beyond the distal leg level. Previous Doppler of the lower extremity from April 2024 showed no evidence of DVT. His current white cell count is at 15.8, hemoglobin is 11.9 and platelet count of 353. Sodium level is 125, bicarb 25, BUN 25 with a creatinine of 0.77. Chloride is at 81. Troponin is at 0.04. Normal LFTs. Chest x-ray was reviewed no chest x-ray from this current admission. Oxygenation remained stable and the patient is currently on 4 L of oxygen by nasal cannula with a pulse ox of 97%. On 07/29/2024, the patient is still having some shortness of breath. Limited cough and congestion and wheezing. Denies having any leg pain. Continues to have some edema in lower extremities bilaterally. He remains on DuoNeb updrafts. He is on Symbicort as maintenance. Remains on IV Solu-Medrol. He is also on Lasix 40 mg p.o. twice a day. Blood work from today shows a white cell count of 12 hemoglobin of 11 and a platelet count of 304. Electrolytes show a sodium level of 132, bicarb is 33, BUN 26 with a creatinine of 1.0. Calcium level is at 8.8. No other significant events overnight. Tolerating diet. No nausea or emesis. Remains on 40 of oxygen by nasal cannula with a pulse ox of 98%. 07/30/2024, patient is being seen for a follow-up. Slightly improved compared to yesterday. Lower extremity edema still present. The patient is on Lasix 40 mg every 12 hours. Remains on bronchodilators. Remains on steroids. Continues to have a congested cough. Sodium levels at 125, potassium level is at 4.3, BUN 32 with a creatinine of 0.8. The white cell count is at 13.8 with a hemoglobin of 11.7. 07/31/2024, patient is resting comfortably in bed. Less bronchospastic and wheezy compared to yesterday. Continues to have significant amount of edema lower extremities bilaterally. Remains on Lasix 40 mg IV every 12 hours. Producing urine output and the fluid balance is -1.1 L over the past 24 hours. No new complaints otherwise for now. White cell count of 14, hemoglobin 11.7 and plat elet count of 366. Sodium is at 126, BUN 29 with a creatinine of 0.6. Remains on bronchodilators. Remains on steroids. Remains on empiric antibiotic coverage with Zithromax. Remains on Aldactone. Remains on IV Lasix. Objective - Vital Signs Vital signs: Vital Signs Temp 97.6 F 07/31/24 07:43 Pulse 76 07/31/24 07:43 Resp 18 07/31/24 07:43 BP 153/88 07/31/24 08:35 Pulse Ox 97 07/31/24 08:48 FiO2 Intake & Output 07/30/24 07/31/24 07/31/24 18:59 06:59 18:59 Intake Total 118 Output Total 1250 Balance 118 -1250 Weight 102.6 kg Intake: Oral 118 Output: Urine 1250 Other: Voiding Method Toilet Toilet Urinal Urinal # Voids 3 - Exam GENERAL EXAM: Alert, obese, disheveled 78-year-old male, on 4 L of oxygen by nasal cannula., Comfortable. No significant respiratory distress HEAD: Normocephalic. EYES: Normal reaction of pupils, equal size. NOSE: Clear with pink turbinates. THROAT: No erythema or exudates. NECK: No masses, no JVD. CHEST: No chest wall deformity. LUNGS: Equal air entry with crackles in the left lung base. Breath sounds are diminished bilaterally CVS: S1 and S2 normal with no audible murmur, regular rhythm. ABDOMEN: No hepatosplenomegaly, normal bowel sounds, no guarding or rigidity. SPINE: No scoliosis or deformity SKIN: No rashes CENTRAL NERVOUS SYSTEM: No focal deficits, tone is normal in all 4 extremities. EXTREMITIES: There is 1+ peripheral edema. No clubbing, no cyanosis. Peripheral pulses are diminished in the lower extremity especially in the feet bilaterally. No signs of any acute vascular insufficiency or cyanosis. - Labs CBC & Chem 7: 07/31/24 06:16 07/31/24 06:16 Labs: Abnormal Lab Results - Last 24 Hours (Table) 07/30/24 07/30/24 07/30/24 Range/Units 12:11 17:29 21:28 WBC (3.8-10.6) k/uL RBC (4.30-5.90) m/uL Hgb (13.0-17.5) gm/dL Hct (39.0-53.0) % Neutrophils # (1.3-7.7) k/uL Lymphocytes # (1.0-4.8) k/uL Sodium (137-145) mmol/L Chloride (98-107) mmol/L Carbon Dioxide (22-30) mmol/L BUN (9-20) mg/dL Creatinine (0.66-1.25) mg/dL Glucose (74-99) mg/dL POC Glucose (mg/dL) 227 H 179 H 250 H (70-110) mg/dL 07/31/24 07/31/24 07/31/24 Range/Units 05:28 06:16 06:16 WBC 14.2 H (3.8-10.6) k/uL RBC 4.11 L (4.30-5.90) m/uL Hgb 11.5 L (13.0-17.5) gm/dL Hct 35.5 L (39.0-53.0) % Neutrophils # 12.9 H (1.3-7.7) k/uL Lymphocytes # 0.5 L (1.0-4.8) k/uL Sodium 126 L (137-145) mmol/L Chloride 83 L (98-107) mmol/L Carbon Dioxide 35 H (22-30) mmol/L BUN 29 H (9-20) mg/dL Creatinine 0.64 L (0.66-1.25) mg/dL Glucose 167 H (74-99) mg/dL POC Glucose (mg/dL) 235 H (70-110) mg/dL Assessment and Plan Plan: Severe stable COPD with an FEV1 of 29% predicted, maintained on a combination of Breyna/Spiriva on outpatient basis in addition to albuterol updrafts Chronic hypoxic respiratory failure, maintained on oxygen 3 L/min nasal cannula Chronic dyspnea, secondary to COPD Influenza A infection diagnosed on 07/22/2024, still positive viral screen Leg pain, likely secondary to PAD/claudication. Will benefit from a vascular surgical evaluation. Hypochloremic hyponatremia Abnormal troponin, nonspecific Previous history of sputum culture positive for Stenotrophomonas maltophilia and 05/19/2024 Chronic hypoxemic respiratory failure, secondary to above, normally oxygen dependent on 2-3 L/min nasal cannula mostly at bedtime Normocytic, normochromic anemia, hemoglobin slightly lower than baseline, no obvious acute blood loss Former tobacco dependence Obesity, with a BMI of of above 40 History of hyperlipidemia History of hypertension History of CAD, with previous stenting of the RCA, 2010 History of peripheral arterial disease Bilateral lower extremity edema Plan: Continue same treatment Overall respiratory status is stable. No new complaints and the patient is being treated with a combination of bronchodilators and steroids and diuretics and the patient is currently on Lasix 40 mg p.o. twice a day. Still bronchospastic and wheezy and the patient will be kept on IV Solu-Medrol now No foot pain He has chronic claudication Recent influenza A infection, viral screen still positive Resume home respiratory medications as maintenance including combination of Symbicort and Spiriva Oxygen therapy and titrate oxygen flow to maintain saturation above 90% IV fluids and monitor electrolytes Cardiology consultation is appreciated Will benefit from vascular consultation regarding his chronic leg pain and claudication Resume home medications Will follow
[2024-07-31 12:34] LABS: Glucose,Whole Blood 199 mg/dL (70-110)
--- NOTE | 2024-07-31 14:41 | P.PN ---
Subjective Progress Note Date: 07/31/24 78 year old M with PMH COPD (on 3L at night), HFpEF entheses most recent echocardiogram on 04/11/2024 showed EF 55-60%), CAD with multiple stents, hypertension, None insulin-dependent diabetes mellitus, history of PE, hyperlipidemia presenting with worsening shortness of breath and bilateral foot numbness. Patient states numbness began earlier this morning on bilateral plantar surface extending to the ankles. Patient was recently admitted for acute on chronic hypoxic respiratory failure secondary to influenza A. Patient states his shortness of breath has gotten worse. Dyspnea made worse on exertion. Patient admits to orthopnea. Endorses a cough however denies any sputum production. Patient notices legs have been swollen as well. Denies any fevers, chills, headache, chest pain, abdominal pain, nausea, vomiting, diarrhea, abdominal pain, urinary symptoms. 07/29 - He is seen and examined at bedside this morning, now on the 6th floor. He was seen and evaluated cardiology as well as pulmonology. Per cardiology, no need to repeat echocardiogram as most recent was performed on 07/17/2024, will continue with home cardiac medications, continuing with Lasix 40 mg IV twice daily, add losartan 12.5 mg daily. Pulmonology added Solu-Medrol 60 mg IV every 6 hours. He has no acute complaints at this time, resting comfortably in bed. Continues utilize 4 L nasal cannula, while saturating in the high 90%. Continue to wean oxygen as possible while maintaining [id number]%. 07/30 - He is seen and examined at bedside this morning. He had no acute events overnight and has no acute concerns this morning. Feels as though if he were to go home now, will be relying on others to help take care of him which is not something he wants. Says he feels safe while currently at the hospital [facility] and comfortable recovering here. 4/6 - Pt appears improved today. Reports breathing has improved. Less bronchospastic. REVIEW OF SYSTEMS: Pertinent positives and negatives noted in HPI. Physical examination: Vital signs reviewed General: In moderate distress, appears at stated age, obese; currently on 4 L nasal cannula Derm: no unusual rashes/lesions, warm Head: atraumatic, normocephalic, symmetric Eyes: EOMI, anicteric sclera, pupils equal round reactive to light ENT: Nose and ears atraumatic Neck: No cervical lymphadenopathy, trachea midline, supple Mouth: no lip lesion, mucus membranes moist Cardiovascular: S1S2 reg, no murmur, positive dorsalis pedis pulse bilateral, bilateral lower extremity 2+ pitting edema to knees Lungs: Diminished lung sounds bilaterally, bilateral inspiratory/expiratory wheezing, crackles Abdominal: soft, non-tender to palpation, no guarding Ext: muscle strength 5 out of 5 in all 4 extremities grossly, no gross muscle atrophy Neuro: CN II-XI grossly intact, no gross focal neuro deficits Psych: Alert, oriented to person, place, and time Data Received Today: Labs: WBC 12.8, hemoglobin 11.1 hematocrit 34.1, platelet 304; sodium 132, chloride 87, bicarb 33.1, BUN 26.9, creatinine 1.0 Imagining: No new imaging today Assessment and plan 78 year old M with PMH COPD (on 3L at night), HFpEF (most recent echocardiogram in 04/11/2024 showed EF of 55-60%), CAD with multiple stents, hypertension, jez-idekmic-ymydphcqx diabetes mellitus, history of PE not anticoagulated, hyperlipidemia presenting with worsening shortness of breath. ED documentation reviewed. Discussed with the patient. The patient is admitted with an anticipated greater than 2 midnight stay for evaluation of acute on chronic hypoxic hypercapnic respiratory failure secondary to acute HFpEF exacerbation and acute COPD exacerbation. #Acute on chronic hypoxic hypercapnic respiratory failure, with viral panel positive for influenza A #Overlying acute COPD exacerbation (on 3 L home oxygen at night only) #Type II NSTEMI -Resume home breathing treatment of Spiriva, Symbicort, Singulair -DuoNebs [id number] and as needed -Continue Solu-Medrol 60 mg IV every 6 hours -On 4 L nasal cannula, continue to wean down, keep O2 between 88-92% -Azithromycin 500 mg x 3 days for COPD prophylaxis (completed on 07/31) -Cepheid 4 Plex influenza A positive -Pulmonology following #Acute HFpEF exacerbation (most recent echocardiogram on 04/11/2024 showed EF 55-60%) #Hypervolemic hyponatremia, improving #Metabolic alkalosis, improving -Troponin trend: 0.050 -> 0.049 -> 0.049 -proBNP 1350 -WBC 12.8, patient afebrile, no signs of infection -Daily weights, I's and O's -Heart healthy diet with fluid restriction of 1.5 L -Cardiac telemetry -Continue with Lasix 40 mg PO q12hr, monitor electrolytes -Continue Lopressor 25 mg p.o. twice daily and Aldactone 25 mg p.o. daily -Cardiology following #Fqx-virqfjr-wqsjwndqz diabetes mellitus -Humalog insulin SQ sliding scale -Accu-Cheks ACHS -Monitor for hypoglycemia #Neuropathy -Continue gabapentin 200 mg PO TID #CAD -Continue aspirin 81 mg p.o. daily -Lipitor 20 mg p.o. at bedtime #GERD -Protonix 40 mg PO QD #Normocytic anemia -Likely from chronic disease -No acute bleeding -Continue ferrous sulfate 325 mg p.o. daily -Folic acid 1 mg p.o. daily DVT prophylaxis: Heparin 5000 unit SQ every 8 hours Code status: Full code F: None E: Replete as needed N: Heart healthy diet with 1500 cc fluid restriction A: Wheelchair Anticipated discharge place: Pending clinical course Anticipated discharge time: Pending clinical course Dictation was produced using [employer] dictation software. please excuse any grammatical, word or spelling errors. Objective - Vital Signs Vital signs: Vital Signs Temp 97.6 F 07/31/24 07:43 Pulse 76 07/31/24 07:43 Resp 18 07/31/24 07:43 BP 153/88 07/31/24 08:35 Pulse Ox 97 07/31/24 08:48 FiO2 Intake & Output 07/30/24 07/31/24 07/31/24 18:59 06:59 18:59 Intake Total 118 Output Total 1250 300 Balance 118 -1250 -300 Weight 102.6 kg Intake: Oral 118 Output: Urine 1250 300 Other: Voiding Method Toilet Toilet Toilet Urinal Urinal Urinal # Voids 3 # Bowel Movements 1 - Labs CBC & Chem 7: 07/31/24 06:16 07/31/24 06:16 Labs: Abnormal Lab Results - Last 24 Hours (Table) 07/30/24 07/30/24 07/31/24 Range/Units 17:29 21:28 05:28 WBC (3.8-10.6) k/uL RBC (4.30-5.90) m/uL Hgb (13.0-17.5) gm/dL Hct (39.0-53.0) % Neutrophils # (1.3-7.7) k/uL Lymphocytes # (1.0-4.8) k/uL Sodium (137-145) mmol/L Chloride (98-107) mmol/L Carbon Dioxide (22-30) mmol/L BUN (9-20) mg/dL Creatinine (0.66-1.25) mg/dL Glucose (74-99) mg/dL POC Glucose (mg/dL) 179 H 250 H 235 H (70-110) mg/dL 07/31/24 07/31/24 07/31/24 Range/Units 06:16 06:16 12:13 WBC 14.2 H (3.8-10.6) k/uL RBC 4.11 L (4.30-5.90) m/uL Hgb 11.5 L (13.0-17.5) gm/dL Hct 35.5 L (39.0-53.0) % Neutrophils # 12.9 H (1.3-7.7) k/uL Lymphocytes # 0.5 L (1.0-4.8) k/uL Sodium 126 L (137-145) mmol/L Chloride 83 L (98-107) mmol/L Carbon Dioxide 35 H (22-30) mmol/L BUN 29 H (9-20) mg/dL Creatinine 0.64 L (0.66-1.25) mg/dL Glucose 167 H (74-99) mg/dL POC Glucose (mg/dL) 199 H (70-110) mg/dL
[2024-07-31 17:17] LABS: Glucose,Whole Blood 171 mg/dL (70-110)
[2024-07-31 19:37] LABS: Glucose,Whole Blood 259 mg/dL (70-110)
[2024-08-01 05:31] LABS: Glucose,Whole Blood 179 mg/dL (70-110)
[2024-08-01] MEDS: predniSONE 20 MG TAB PO SCH (08:22)
[2024-08-01 08:23] LABS: HCT 35.3 % (39.6-50.0); HGB 11.7 g/dL (13.0-17.0); MCH 28.6 pg (27.0-32.0); MCHC 33.1 g/dL (32.0-37.0); MCV 86.3 FL (80.0-97.0); Mean Platelet Volume 9.9 FL (9.5-12.2); NRBC Per 100 WBC 0 X 10*3/uL (0.00-0.01); Platelet Count 385 X 10*3/uL (140-440); RBC 4.09 X 10*6/uL (4.40-5.60); RDW 14.2 % (11.5-14.5); WBC 18.25 X 10*3/uL (4.50-10.00)
[2024-08-01 08:24] LABS: Basophils # (A) 0.07 X 10*3/uL (0.00-0.10); Basophils % (A) 0.4 %; Eosinophils # (A) 0.02 X 10*3/uL (0.04-0.35); Eosinophils % (A) 0.1 %; Lymphocytes # (A) 0.77 X 10*3/uL (0.90-5.00); Lymphocytes % (A) 4.2 %; Monocytes # (A) 0.57 X 10*3/uL (0.20-1.00); Monocytes % (A) 3.1 %; Neutrophils # (A) 15.92 X 10*3/uL (1.80-7.70); Neutrophils % (A) 87.3 %
[2024-08-01 08:26] LABS: BUN/Creat Ratio 26.38 Ratio (12.00-20.00); Blood Urea Nitrogen 21.1 mg/dL (9.0-27.0); Calcium 8.9 mg/dL (8.7-10.3); Carbon Dioxide 36.9 mmol/L (21.6-31.8); Chloride 83 mmol/L (96-109); Glucose 181 mg/dL (70-110); Potassium 4.2 mmol/L (3.5-5.5); Sodium 130 mmol/L (135-145)
--- NOTE | 2024-08-01 11:25 | P.PN ---
Subjective Progress Note Date: 08/01/24 78 year old M with PMH COPD (on 3L at night), HFpEF entheses most recent echocardiogram on 04/11/2024 showed EF 55-60%), CAD with multiple stents, hypertension, None insulin-dependent diabetes mellitus, history of PE, hyperlipidemia presenting with worsening shortness of breath and bilateral foot numbness. Patient states numbness began earlier this morning on bilateral plantar surface extending to the ankles. Patient was recently admitted for acute on chronic hypoxic respiratory failure secondary to influenza A. Patient states his shortness of breath has gotten worse. Dyspnea made worse on exertion. Patient admits to orthopnea. Endorses a cough however denies any sputum production. Patient notices legs have been swollen as well. Denies any fevers, chills, headache, chest pain, abdominal pain, nausea, vomiting, diarrhea, abdominal pain, urinary symptoms. 07/29 - He is seen and examined at bedside this morning, now on the 6th floor. He was seen and evaluated cardiology as well as pulmonology. Per cardiology, no need to repeat echocardiogram as most recent was performed on 07/17/2024, will continue with home cardiac medications, continuing with Lasix 40 mg IV twice daily, add losartan 12.5 mg daily. Pulmonology added Solu-Medrol 60 mg IV every 6 hours. He has no acute complaints at this time, resting comfortably in bed. Continues utilize 4 L nasal cannula, while saturating in the high 90%. Continue to wean oxygen as possible while maintaining brbecufopon87%. 07/30 - He is seen and examined at bedside this morning. He had no acute events overnight and has no acute concerns this morning. Feels as though if he were to go home now, will be relying on others to help take care of him which is not something he wants. Says he feels safe while currently at the hospital [facility] and comfortable recovering here. 07/31 - Pt appears improved today. Reports breathing has improved. Less bronchospastic. 08/01 - He is seen and examined at bedside this morning. He has no new complaints and continues to state he is feeling better. However does not feel ready to go home and have to take care of himself. REVIEW OF SYSTEMS: Pertinent positives and negatives noted in HPI. Physical examination: Vital signs reviewed General: In moderate distress, appears at stated age, obese; currently on 4 L nasal cannula Derm: no unusual rashes/lesions, warm Head: atraumatic, normocephalic, symmetric Eyes: EOMI, anicteric sclera, pupils equal round reactive to light ENT: Nose and ears atraumatic Neck: No cervical lymphadenopathy, trachea midline, supple Mouth: no lip lesion, mucus membranes moist Cardiovascular: S1S2 reg, no murmur, positive dorsalis pedis pulse bilateral, bilateral lower extremity 2+ pitting edema to knees Lungs: Diminished lung sounds bilaterally, bilateral inspiratory/expiratory wheezing, crackles Abdominal: soft, non-tender to palpation, no guarding Ext: muscle strength 5 out of 5 in all 4 extremities grossly, no gross muscle atrophy Neuro: CN II-XI grossly intact, no gross focal neuro deficits Psych: Alert, oriented to person, place, and time Data Received Today: Labs: WBCs 18.25, hemoglobin 11.7 hematocrit 35.3, platelet 385; sodium 130, potassium 4.2, chloride 83, bicarb 26.9, BUN 21.1, creatinine 0.8 Imagining: No new imaging today Assessment and plan 78 year old M with PMH COPD (on 3L at night), HFpEF (most recent echocardiogram in 04/11/2024 showed EF of 55-60%), CAD with multiple stents, hypertension, ssu-bptbkcb-klgobnuvi diabetes mellitus, history of PE not anticoagulated, hyperlipidemia presenting with worsening shortness of breath. ED documentation reviewed. Discussed with the patient. The patient is admitted with an antici pated greater than 2 midnight stay for evaluation of acute on chronic hypoxic hypercapnic respiratory failure secondary to acute HFpEF exacerbation and acute COPD exacerbation. #Acute on chronic hypoxic hypercapnic respiratory failure, with viral panel positive for influenza A #Overlying acute COPD exacerbation (on 3 L home oxygen at night only) #Type II NSTEMI -Resume home breathing treatment of Spiriva, Symbicort, Singulair -DuoNebs qchrqz-dpq-ujaes and as needed -Continue Solu-Medrol 60 mg IV every 6 hours -On 4 L nasal cannula, continue to wean down, keep O2 between 88-92% -Azithromycin 500 mg x 3 days for COPD prophylaxis -Cepheid 4 Plex influenza A positive -Pulmonology following #Acute HFpEF exacerbation (most recent echocardiogram on 04/11/2024 showed EF 55-60%) #Hypervolemic hyponatremia, improving #Metabolic alkalosis, improving -Troponin trend: 0.050 -> 0.049 -> 0.049 -proBNP 1350 -WBC 12.8, patient afebrile, no signs of infection -Daily weights, I's and O's -Heart healthy diet with fluid restriction of 1.5 L -Cardiac telemetry -Continue with Lasix 40 mg PO q12hr, monitor electrolytes -Continue Lopressor 25 mg p.o. twice daily and Aldactone 25 mg p.o. daily -Cardiology following #Leukocytosis, likely reactive to steroid use -Per pulmonology has been continuing on Solu-Medrol 60 mg every 6 hours -Will continue to monitor CBC, likely reactive leukocytosis #Zsv-kctxchl-dtbygrgww diabetes mellitus -Humalog insulin SQ sliding scale -Accu-Cheks ACHS -Monitor for hypoglycemia #Neuropathy -Continue gabapentin 200 mg PO TID #CAD -Continue aspirin 81 mg p.o. daily -Lipitor 20 mg p.o. at bedtime #GERD -Protonix 40 mg PO QD #Normocytic anemia -Likely from chronic disease -No acute bleeding -Continue ferrous sulfate 325 mg p.o. daily -Folic acid 1 mg p.o. daily DVT prophylaxis: Heparin 5000 unit SQ every 8 hours Code status: Full code F: None E: Replete as needed N: Heart healthy diet with 1500 cc fluid restriction A: Wheelchair Anticipated discharge place: Pending clinical course Anticipated discharge time: Pending clinical course Dictation was produced using [email or web address] dictation software. please excuse any grammatical, word or spelling errors. En Costello MD PGY-1 IM I saw and evaluated the patient during the luu and critical portions of this encounter, and discussed the case in detail with the resident author of this note, I agree with the Assessment and Plan, and my changes, if any, are highlighted in blue. Objective - Vital Signs Vital signs: Vital Signs Temp 97.8 F 08/01/24 00:55 Pulse 65 08/01/24 00:55 Resp 20 08/01/24 00:55 BP 95/56 08/01/24 00:55 Pulse Ox 95 08/01/24 00:55 FiO2 Intake & Output 07/31/24 08/01/24 08/01/24 18:59 06:59 18:59 Intake Total 1080 740 Output Total 900 1300 Balance 180 -560 Weight 102.7 kg Intake: Oral 1080 740 Output: Urine 900 1300 Other: Voiding Method Toilet Urinal # Bowel Movements 1 - Labs CBC & Chem 7: 08/01/24 05:26 08/01/24 05:26 Labs: Abnormal Lab Results - Last 24 Hours (Table) 07/31/24 07/31/24 07/31/24 Range/Units 12:13 17:05 19:35 POC Glucose (mg/dL) 199 H 171 H 259 H (70-110) mg/dL 08/01/24 Range/Units 05:27 POC Glucose (mg/dL) 179 H (70-110) mg/dL
[2024-08-01 12:17] LABS: Glucose,Whole Blood 184 mg/dL (70-110)
--- NOTE | 2024-08-01 13:37 | P.PN ---
Subjective Progress Note Date: 08/01/24 This is a 78-year-old male patient presented to the hospital because of pain lower extremity essentially exertion. He also has some chronic numbness along with the pain in his feet bilaterally. He has chronic lower extremity edema. He has noted multiple comorbidities. Specifically, the patient has previous history of COPD with an FEV1 of 29% of predicted. The patient was hospitalized on 07/18/2024 and seen by pulmonology for acute COPD exacerbation and influenza A infection. At that time, the patient was treated appropriately and he was discharged home. He had a similar hospitalization back in April 2024 and at that time the patient has stenotrophomonas in his lungs, treated appropriately. The patient has chronic hypoxic rosy failure maintained on oxygen 3 L of oxygen by nasal cannula. He has been maintained on a combination of Breyna and Spiriva on an outpatient basis. He has had multiple hospitalization for COPD extubation essentially related to various respiratory infections. He is also known to have peripheral vascular disease, hypertension, hyperlipidemia, coronary artery disease, obesity, and the patient is a former smoker. His previous echocardiogram from March 2024 has shown an ejection fraction of 55 to 60% along with mild dilatation of the RV. Previous arterial Dopplers of the lower extremity showed a normal ankle-brachial indices bilaterally. There is mild decrease in bilateral toe brachial intake suggested of mild distal lower extremity PAD. Previous CT angiogram of the lower extremity done on 02/26/2024 showed moderate atherosclerotic stenosis throughout the right lower extremity. More severe focal stenosis involving the mid right external iliac artery, proximal anterior tibial artery and there was satisfactory runoff via the posterior tibial artery. Neither the anterior tibial artery or the peroneal artery were seen beyond the distal leg level. Previous Doppler of the lower extremity from April 2024 showed no evidence of DVT. His current white cell count is at 15.8, hemoglobin is 11.9 and platelet count of 353. Sodium level is 125, bicarb 25, BUN 25 with a creatinine of 0.77. Chloride is at 81. Troponin is at 0.04. Normal LFTs. Chest x-ray was reviewed no chest x-ray from this current admission. Oxygenation remained stable and the patient is currently on 4 L of oxygen by nasal cannula with a pulse ox of 97%. On 07/29/2024, the patient is still having some shortness of breath. Limited cough and congestion and wheezing. Denies having any leg pain. Continues to have some edema in lower extremities bilaterally. He remains on DuoNeb updrafts. He is on Symbicort as maintenance. Remains on IV Solu-Medrol. He is also on Lasix 40 mg p.o. twice a day. Blood work from today shows a white cell count of 12 hemoglobin of 11 and a platelet count of 304. Electrolytes show a sodium level of 132, bicarb is 33, BUN 26 with a creatinine of 1.0. Calcium level is at 8.8. No other significant events overnight. Tolerating diet. No nausea or emesis. Remains on 40 of oxygen by nasal cannula with a pulse ox of 98%. 07/30/2024, patient is being seen for a follow-up. Slightly improved compared to yesterday. Lower extremity edema still present. The patient is on Lasix 40 mg every 12 hours. Remains on bronchodilators. Remains on steroids. Continues to have a congested cough. Sodium levels at 125, potassium level is at 4.3, BUN 32 with a creatinine of 0.8. The white cell count is at 13.8 with a hemoglobin of 11.7. 07/31/2024, patient is resting comfortably in bed. Less bronchospastic and wheezy compared to yesterday. Continues to have significant amount of edema lower extremities bilaterally. Remains on Lasix 40 mg IV every 12 hours. Producing urine output and the fluid balance is -1.1 L over the past 24 hours. No new complaints otherwise for now. White cell count of 14, hemoglobin 11.7 and plate let count of 366. Sodium is at 126, BUN 29 with a creatinine of 0.6. Remains on bronchodilators. Remains on steroids. Remains on empiric antibiotic coverage with Zithromax. Remains on Aldactone. Remains on IV Lasix. The patient is seen today August 01, 2024 in follow-up on the regular medical floor. He is currently resting in bed. Awake and alert in no acute distress. Maintaining O2 saturations in the 90s on 4 L/min per nasal cannula. He is afebrile. Hemodynamically stable. White count 18.2. Hemoglobin 11.7. Platelets 385. Sodium 130. Potassium 4.2. Bicarb 37. BUN 21. Creatinine 0.8. Glucose 181. He is continued on DuoNeb inhalations, Symbicort, Spiriva, Singulair and a prednisone taper. He has been transition to oral diuretics. Currently in a -380 mL balance. Completed antibiotics. Objective - Vital Signs Vital signs: Vital Signs Temp 97.5 F L 08/01/24 07:20 Pulse 73 08/01/24 07:20 Resp 18 08/01/24 07:20 BP 114/72 08/01/24 07:20 Pulse Ox 93 L 08/01/24 07:20 FiO2 Intake & Output 07/31/24 08/01/24 08/01/24 18:59 06:59 18:59 Intake Total 1080 740 Output Total 900 1300 Balance 180 -560 Weight 102.7 kg Intake: Oral 1080 740 Output: Urine 900 1300 Other: Voiding Method Toilet Toilet Urinal Urinal # Bowel Movements 1 - Exam GENERAL EXAM: Alert, obese 79-year-old male patient, on 4 L nasal cannula, fairly comfortable in no apparent distress. HEAD: Normocephalic. EYES: Normal reaction of pupils, equal size. NOSE: Clear with pink turbinates. THROAT: No erythema or exudates. NECK: No masses, no JVD. CHEST: No chest wall deformity. LUNGS: Equal air entry with crackles in the bilateral bases, diminished. CVS: S1 and S2 normal with no audible murmur, regular rhythm. ABDOMEN: No hepatosplenomegaly, normal bowel sounds, no guarding or rigidity. SPINE: No scoliosis or deformity SKIN: No rashes CENTRAL NERVOUS SYSTEM: No focal deficits, tone is normal in all 4 extremities. EXTREMITIES: There is 1+ peripheral edema. No clubbing, no cyanosis. Peripheral pulses are intact. - Labs CBC & Chem 7: 08/01/24 05:26 08/01/24 05:26 Labs: Abnormal Lab Results - Last 24 Hours (Table) 07/31/24 07/31/24 08/01/24 Range/Units 17:05 19:35 05:26 WBC 18.25 H (4.50-10.00) X 10*3/uL RBC 4.09 L (4.40-5.60) X 10*6/uL Hgb 11.7 L (13.0-17.0) g/dL Hct 35.3 L (39.6-50.0) % Immature Gran # 0.90 H (0.00-0.04) X 10*3/uL Neutrophils # 15.92 H (1.80-7.70) X 10*3/uL Lymphocytes # 0.77 L (0.90-5.00) X 10*3/uL Eosinophils # 0.02 L (0.04-0.35) X 10*3/uL Sodium (135-145) mmol/L Chloride (96-109) mmol/L Carbon Dioxide (21.6-31.8) mmol/L BUN/Creatinine Ratio (12.00-20.00) Ratio Glucose (70-110) mg/dL POC Glucose (mg/dL) 171 H 259 H (70-110) mg/dL 08/01/24 08/01/24 08/01/24 Range/Units 05:26 05:27 12:15 WBC (4.50-10.00) X 10*3/uL RBC (4.40-5.60) X 10*6/uL Hgb (13.0-17.0) g/dL Hct (39.6-50.0) % Immature Gran # (0.00-0.04) X 10*3/uL Neutrophils # (1.80-7.70) X 10*3/uL Lymphocytes # (0.90-5.00) X 10*3/uL Eosinophils # (0.04-0.35) X 10*3/uL Sodium 130 L (135-145) mmol/L Chloride 83 L (96-109) mmol/L Carbon Dioxide 36.9 H (21.6-31.8) mmol/L BUN/Creatinine Ratio 26.38 H (12.00-20.00) Ratio Glucose 181 H (70-110) mg/dL POC Glucose (mg/dL) 179 H 184 H (70-110) mg/dL Assessment and Plan Assessment: Leg pain, likely secondary to PAD/claudication with bilateral lower extremity edema Severe stable COPD with an FEV1 of 29% predicted, maintained on a combination of Breyna/Spiriva on outpatient basis in addition to albuterol updrafts Chronic hypoxic respiratory failure, maintained on oxygen 3 L/min nasal cannula Chronic dyspnea, secondary to COPD Influenza A infection diagnosed on 07/22/2024, still positive on 07/28/2024 viral screen Hypochloremic hyponatremia Abnormal troponin, nonspecific Previous history of sputum culture positive for Stenotrophomonas maltophilia and 05/19/2024 Normocytic, normochromic anemia, hemoglobin slightly lower than baseline, no obvious acute blood loss Former tobacco dependence Obesity, with a BMI of of above 40 History of hyperlipidemia History of hypertension History of CAD, with previous stenting of the RCA, 2010 History of peripheral arterial disease Plan: The patient was seen and evaluated Labs and medications reviewed Remains on gabapentin for leg pain Continued on oral diuretics Continued on DuoNeb inhalations Continued on Symbicort, Spiriva Continued on Singulair Remains on a prednisone taper Heparin for DVT prophylaxis Patient has home oxygen and nebulizer This patient was seen independently by the pulmonary nurse practitioner addressing pulmonary issues I have personally seen and examined the patient, performed the documentation and the assessment and plan as written. Number of minutes spent on the visit: 24 Dictation was produced using [employer] dictation software. Please excuse any grammatical, word or spelling errors.
[2024-08-01 16:55] LABS: Glucose,Whole Blood 207 mg/dL (70-110)
[2024-08-01 18:57] LABS: Glucose,Whole Blood 217 mg/dL (70-110)
[2024-08-02 01:24] VITALS: TEMP 97.3
[2024-08-02 06:08] LABS: Basophils # (A) 0.07 10*3/uL (0.00-0.10); Basophils % (A) 0.4 %; HCT 36.5 % (39.6-50.0); HGB 12.6 g/dL (13.0-17.0); Lymphocytes # (A) 1.17 10*3/uL (0.90-5.00); Lymphocytes % (A) 6.2 %; MCHC 34.5 g/dL (32.0-37.0); MCV 84.1 fL (80.0-97.0); Mean Platelet Volume 9.6 fL (9.5-12.2); Monocytes # (A) 1.41 10*3/uL (0.20-1.00); Monocytes % (A) 7.4 %; Neutrophils # (A) 15.36 10*3/uL (1.80-7.70); Platelet Count 354 10*3/uL (140-440); RBC 4.34 10*6/uL (4.40-5.60); RDW 13.9 % (11.5-14.5); WBC 18.95 10*3/uL (4.50-10.00)
[2024-08-02 06:13] LABS: African American GFR (CKD) >90 (>60 ml/min/1.73 sqM); Blood Urea Nitrogen 31 mg/dL (9-20); Chloride 80 mmol/L (98-107); Glucose 125 mg/dL (74-99); Non-African American GFR(CKD) >90 (>60 ml/min/1.73 sqM); Potassium 3.9 mmol/L (3.5-5.1); Sodium 127 mmol/L (137-145)
[2024-08-02 06:19] LABS: Anion Gap 8 mmol/L
[2024-08-02 06:23] LABS: Carbon Dioxide 39 mmol/L (22-30)
--- NOTE | 2024-08-02 11:22 | P.DS ---
Providers Date of admission: 07/28/24 00:06 Attending physician: Kristopher Dale MD Consults: 07/28/24 00:05 Consult Physician Routine Consulting Provider: [facility] Consult Reason/Comments: CHF Do you want consulting provider notified?: Yes, Notify in am 07/28/24 01:17 Consult Physician Routine Consulting Provider: Mindy Vargas Consult Reason/Comments: COPD ex Do you want consulting provider notified?: Yes, Notify in am [facility] Course: Discharge diagnoses; #Acute on chronic hypoxic hypercapnic respiratory failure, with viral panel positive for influenza A #Overlying acute COPD exacerbation (on 3 L home oxygen at night only) #Type II NSTEMI #Acute HFpEF exacerbation (most recent echocardiogram on 04/11/2024 showed EF 5 5-60%) #Hypervolemic hyponatremia, improving #Metabolic alkalosis, improving #Leukocytosis, likely reactive to steroid use #[id number] diabetes mellitus #Neuropathy #CAD #GERD #Normocytic anemia Hospital course; 78 year old M with PMH COPD (on 3L at night), HFpEF entheses most recent echocardiogram on 04/11/2024 showed EF 55-60%), CAD with multiple stents, hypertension, None insulin-dependent diabetes mellitus, history of PE, hyperlipidemia presenting with worsening shortness of breath and bilateral foot numbness. Patient states numbness began earlier this morning on bilateral plantar surface extending to the ankles. Patient was recently admitted for acute on chronic hypoxic respiratory failure secondary to influenza A. Patient states his shortness of breath has gotten worse. Dyspnea made worse on exertion. Patient admits to orthopnea. Endorses a cough however denies any sputum production. Patient notices legs have been swollen as well. Throughout the duration of his stay he was receiving 40 mg of Lasix IV twice daily to assist with the HFpEF exacerbation as well as receiving Solu-Medrol 60 mg every 6 hours as per pulmonology recommendation. He was then utilizing his home oxygen of 4 L while on nasal cannula and continued to saturate 90%. He did express concern in the ability for him to take care of himself upon discharge which is part of the reason efforts were made to continue to take off more fluid with continued Lasix use. Lasix was transitioned to oral from IV, diuresis was continued. Continues to saturate in the high 90%'s while utilizing 4 L nasal cannula, which is what he will be using at home. Discussed, and he expressed understanding, and continuing regular follow-up appointments with his primary care physician as well as tenterer. He will be discharged with prednisone, to be tapered over 15 days starting with 40 mg for 5 days, 30 mg for 5 days, 20 mg for 5 days and then return to his normal home dose of 10 mg daily. He will be discharged with home care, with information given regarding palliative care. He verbalized agreement and understanding, and is excited to be discharge today. Physical examination: Vital signs reviewed General: In moderate distress, appears at stated age, obese; currently on 4 L nasal cannula Derm: no unusual rashes/lesions, warm Head: atraumatic, normocephalic, symmetric Eyes: EOMI, anicteric sclera, pupils equal round reactive to light ENT: Nose and ears atraumatic Neck: No cervical lymphadenopathy, trachea midline, supple Mouth: no lip lesion, mucus membranes moist Cardiovascular: S1S2 reg, no murmur, positive dorsalis pedis pulse bilateral, bilateral lower extremity 1+ pitting edema to knees Lungs: Diminished lung sounds bilaterally, bilateral inspiratory/expiratory wheezing, crackles Abdominal: soft, non-tender to palpation, no guarding Ext: muscle strength 5 out of 5 in all 4 extremities grossly, no gross muscle atrophy Neuro: CN II-XI grossly intact, no gross focal neuro deficits Psych: Alert, oriented to person, place, and time Dictation was produced using [employer] dictation software. please excuse any grammatical, word or spelling errors. En Costello MD PGY-1 IM I saw and evaluated the patient during the luu and critical portions of this encounter, and discussed the case in detail with the resident author of this note, I agree with the Assessment and Plan, and my changes, if any, are highlighted in blue. This patient is already being [facility] well [facility]. Patient Condition at Discharge: Stable Plan - Discharge Summary Discharge Rx Participant: Yes New Discharge Prescriptions: New Losartan [Cozaar] 12.5 mg PO DAILY #30 tab predniSONE See Taper PO DAILY #30 tab Continue Aspirin EC [Ecotrin Low Dose] 81 mg PO DAILY Budesonide/Formoterol Fumarate [Symbicort 160-4.5 Mcg Inhaler] 2 puff INHALATION RT-BID Ipratropium/Albuterol Sulfate [Combivent Respimat Inhaler] 1 puff INHALATION RT-QID Metoprolol Tartrate [Lopressor] 25 mg PO BID Clopidogrel Bisulfate [Plavix] 75 mg PO DAILY Tiotropium 18 Mcg/Puff [Spiriva] 2 puff INHALATION RT-DAILY Simvastatin [Zocor] 40 mg PO HS Albuterol Nebulized [Ventolin Nebulized] 2.5 mg INHALATION RT-QID Loratadine [Claritin] 10 mg PO DAILY Albuterol Inhaler [Ventolin Hfa Inhaler] 2 puff INHALATION RT-TID PRN PRN Reason: Shortness Of Breath Cholecalciferol [Vitamin D3 (25 Mcg = 1000 Iu)] 25 mcg PO BID Furosemide [Lasix] 20 mg PO DAILY Azithromycin [Zithromax] 500 mg PO MOWEFR Gabapentin [Neurontin] 200 mg PO TID #90 cap Ondansetron Odt [Zofran ODT] 4 mg PO Q8HR PRN PRN Reason: Nausea And Vomiting Ferrous Sulfate [Iron (65 MG Elemental)] 325 mg PO W/LUNCH Folic Acid 1 mg PO DAILY Vitamin B-12 50mcg 50 mcg PO DAILY Pantoprazole [Protonix] 40 mg PO AC-BRKFST #30 tab Montelukast [Singulair] 10 mg PO HS #30 tab Spironolactone [Aldactone] 25 mg PO DAILY #90 tab predniSONE See Taper PO DAILY #18 tab Meloxicam [Mobic] 7.5 mg PO DAILY HYDROcodone/APAP 5-325MG [[place] 5-325] 1 tab PO TID PRN PRN Reason: Pain Discharge Medication List Aspirin EC [Ecotrin Low Dose] 81 mg PO DAILY 06/22/18 [History] Budesonide/Formoterol Fumarate [Symbicort 160-4.5 Mcg Inhaler] 2 puff INHALATION RT-BID 06/22/18 [History] Ipratropium/Albuterol Sulfate [Combivent Respimat Inhaler] 1 puff INHALATION RT- QID 06/22/18 [History] Metoprolol Tartrate [Lopressor] 25 mg PO BID 06/22/18 [History] Clopidogrel Bisulfate [Plavix] 75 mg PO DAILY 07/01/18 [History] Albuterol Inhaler [Ventolin Hfa Inhaler] 2 puff INHALATION RT-TID PRN 12/07/19 [History] Albuterol Nebulized [Ventolin Nebulized] 2.5 mg INHALATION RT-QID 12/07/19 [History] Loratadine [Claritin] 10 mg PO DAILY 12/07/19 [History] Simvastatin [Zocor] 40 mg PO HS 12/07/19 [History] Tiotropium 18 Mcg/Puff [Spiriva] 2 puff INHALATION RT-DAILY 12/07/19 [History] Cholecalciferol [Vitamin D3 (25 Mcg = 1000 Iu)] 25 mcg PO BID 03/17/24 [History] Ferrous Sulfate [Iron (65 MG Elemental)] 325 mg PO W/LUNCH 04/06/24 [History] Folic Acid 1 mg PO DAILY 04/06/24 [History] Vitamin B-12 50mcg 50 mcg PO DAILY 04/06/24 [History] Furosemide [Lasix] 20 mg PO DAILY 04/16/24 [History] Azithromycin [Zithromax] 500 mg PO MOWEFR 06/09/24 [History] Gabapentin [Neurontin] 200 mg PO TID #90 cap 06/11/24 [Rx] Montelukast [Singulair] 10 mg PO HS #30 tab 06/16/24 [Rx] Pantoprazole [Protonix] 40 mg PO AC-BRKFST #30 tab 06/16/24 [Rx] Spironolactone [Aldactone] 25 mg PO DAILY #90 tab 06/24/24 [Rx] predniSONE See Taper PO DAILY #18 tab 07/19/24 [Rx] HYDROcodone/APAP 5-325MG [[place] 5-325] 1 tab PO TID PRN 07/28/24 [History] Meloxicam [Mobic] 7.5 mg PO DAILY 07/28/24 [History] Ondansetron Odt [Zofran ODT] 4 mg PO Q8HR PRN 07/28/24 [History] Losartan [Cozaar] 12.5 mg PO DAILY #30 tab 08/02/24 [Rx] predniSONE See Taper PO DAILY #30 tab 08/02/24 [Rx] Follow up Appointment(s)/Referral(s): Manoj Alberto MD [STAFF PHYSICIAN] - 1 Week [facility] [NON-STAFF] - As Needed Enrrique Reese DO [Primary Care Provider] - 1-2 days Activity/Diet/Wound Care/Special Instructions: [facility] PALLIATIVE CARE PHONE APPOINTMENT - DR DORAN P: [phone] 08.04.24 at 1:00PM PATIENT TO CALL FOR APPOINTMENT Please be sure to follow up with your primary care physician and your tenterer within 1 week of discharge! Please note the following changes to your prednisone dose: -Take a total of 40 mg for 5 days, followed by 5 days taking 30 mg, followed by 5 days taking 20 mg. After those 15 days in total resume your usual home dose of 10 mg prednisone daily. Discharge Disposition: HOME WITH HOME HEALTH SERVICES
[2024-08-02 11:42] VITALS: BP 116/62; PULSE 79; RESP 19
[2024-08-02 12:08] LABS: Glucose,Whole Blood 151 mg/dL (70-110)
--- NOTE | 2024-08-02 13:38 | P.PN ---
Subjective Progress Note Date: 08/02/24 This is a 78-year-old male patient presented to the hospital because of pain lower extremity essentially exertion. He also has some chronic numbness along with the pain in his feet bilaterally. He has chronic lower extremity edema. He has noted multiple comorbidities. Specifically, the patient has previous history of COPD with an FEV1 of 29% of predicted. The patient was hospitalized on 07/18/2024 and seen by pulmonology for acute COPD exacerbation and influenza A infection. At that time, the patient was treated appropriately and he was discharged home. He had a similar hospitalization back in April 2024 and at that time the patient has stenotrophomonas in his lungs, treated appropriately. The patient has chronic hypoxic rosy failure maintained on oxygen 3 L of oxygen by nasal cannula. He has been maintained on a combination of Breyna and Spiriva on an outpatient basis. He has had multiple hospitalization for COPD extubation essentially related to various respiratory infections. He is also known to have peripheral vascular disease, hypertension, hyperlipidemia, coronary artery disease, obesity, and the patient is a former smoker. His previous echocardiogram from March 2024 has shown an ejection fraction of 55 to 60% along with mild dilatation of the RV. Previous arterial Dopplers of the lower extremity showed a normal ankle-brachial indices bilaterally. There is mild decrease in bilateral toe brachial intake suggested of mild distal lower extremity PAD. Previous CT angiogram of the lower extremity done on 02/26/2024 showed moderate atherosclerotic stenosis throughout the right lower extremity. More severe focal stenosis involving the mid right external iliac artery, proximal anterior tibial artery and there was satisfactory runoff via the posterior tibial artery. Neither the anterior tibial artery or the peroneal artery were seen beyond the distal leg level. Previous Doppler of the lower extremity from April 2024 showed no evidence of DVT. His current white cell count is at 15.8, hemoglobin is 11.9 and platelet count of 353. Sodium level is 125, bicarb 25, BUN 25 with a creatinine of 0.77. Chloride is at 81. Troponin is at 0.04. Normal LFTs. Chest x-ray was reviewed no chest x-ray from this current admission. Oxygenation remained stable and the patient is currently on 4 L of oxygen by nasal cannula with a pulse ox of 97%. On 07/29/2024, the patient is still having some shortness of breath. Limited cough and congestion and wheezing. Denies having any leg pain. Continues to have some edema in lower extremities bilaterally. He remains on DuoNeb updrafts. He is on Symbicort as maintenance. Remains on IV Solu-Medrol. He is also on Lasix 40 mg p.o. twice a day. Blood work from today shows a white cell count of 12 hemoglobin of 11 and a platelet count of 304. Electrolytes show a sodium level of 132, bicarb is 33, BUN 26 with a creatinine of 1.0. Calcium level is at 8.8. No other significant events overnight. Tolerating diet. No nausea or emesis. Remains on 40 of oxygen by nasal cannula with a pulse ox of 98%. 07/30/2024, patient is being seen for a follow-up. Slightly improved compared to yesterday. Lower extremity edema still present. The patient is on Lasix 40 mg every 12 hours. Remains on bronchodilators. Remains on steroids. Continues to have a congested cough. Sodium levels at 125, potassium level is at 4.3, BUN 32 with a creatinine of 0.8. The white cell count is at 13.8 with a hemoglobin of 11.7. 07/31/2024, patient is resting comfortably in bed. Less bronchospastic and wheezy compared to yesterday. Continues to have significant amount of edema lower extremities bilaterally. Remains on Lasix 40 mg IV every 12 hours. Producing urine output and the fluid balance is -1.1 L over the past 24 hours. No new complaints otherwise for now. White cell count of 14, hemoglobin 11.7 and plate let count of 366. Sodium is at 126, BUN 29 with a creatinine of 0.6. Remains on bronchodilators. Remains on steroids. Remains on empiric antibiotic coverage with Zithromax. Remains on Aldactone. Remains on IV Lasix. The patient is seen today August 01, 2024 in follow-up on the regular medical floor. He is currently resting in bed. Awake and alert in no acute distress. Maintaining O2 saturations in the 90s on 4 L/min per nasal cannula. He is afebrile. Hemodynamically stable. White count 18.2. Hemoglobin 11.7. Platelets 385. Sodium 130. Potassium 4.2. Bicarb 37. BUN 21. Creatinine 0.8. Glucose 181. He is continued on DuoNeb inhalations, Symbicort, Spiriva, Singulair and a prednisone taper. He has been transition to oral diuretics. Currently in a -380 mL balance. Completed antibiotics. The patient is seen today August 02, 2024 in follow-up on the regular medical floor. He is sitting up in bed. Awake and alert in no acute distress. Denies any worsening shortness of breath, cough or congestion. Maintaining O2 saturations in the 90s on 4 L/min per nasal cannula. White count 18.9. Hemoglobin 12.6. Platelets 354. Sodium 127. Potassium 3.9. Bicarb 39. BUN 3 1. Creatinine 0.70. Glucose 125. He remains on DuoNeb inhalations, Symbicort, Singulair, Spiriva. Remains on prednisone taper. Heparin for DVT prophylaxis. Remains on oral diuretics. Objective - Vital Signs Vital signs: Vital Signs Temp 97.3 F L 08/02/24 07:30 Pulse 92 08/02/24 09:37 Resp 19 08/02/24 07:30 BP 116/62 08/02/24 07:30 Pulse Ox 80 L 08/02/24 12:26 FiO2 Intake & Output 08/01/24 08/02/24 08/02/24 18:59 06:59 18:59 Intake Total 840 350 Output Total 1125 550 Balance -285 -200 Weight 102.6 kg Intake: Oral 840 350 Output: Urine 1125 550 Other: Voiding Method Toilet Urinal Urinal Urinal - Exam GENERAL EXAM: Alert, obese 79-year-old male, on 4 L nasal cannula, comfortable in no apparent distress. HEAD: Normocephalic. EYES: Normal reaction of pupils, equal size. NOSE: Clear with pink turbinates. THROAT: No erythema or exudates. NECK: No masses, no JVD. CHEST: No chest wall deformity. LUNGS: Equal air entry with crackles in the bilateral bases, diminished. CVS: S1 and S2 normal with no audible murmur, regular rhythm. ABDOMEN: No hepatosplenomegaly, normal bowel sounds, no guarding or rigidity. SPINE: No scoliosis or deformity SKIN: No rashes CENTRAL NERVOUS SYSTEM: No focal deficits, tone is normal in all 4 extremities. EXTREMITIES: There is 1+ peripheral edema. No clubbing, no cyanosis. Peripheral pulses are intact. - Labs CBC & Chem 7: 08/02/24 05:27 08/02/24 05:27 Labs: Abnormal Lab Results - Last 24 Hours (Table) 08/01/24 08/01/24 08/02/24 Range/Units 16:53 18:55 05:27 WBC 18.95 H (4.50-10.00) 10*3/uL RBC 4.34 L (4.40-5.60) 10*6/uL Hgb 12.6 L (13.0-17.0) g/dL Hct 36.5 L (39.6-50.0) % Immature Gran # 0.94 H (0.00-0.04) 10*3/uL Neutrophils # 15.36 H (1.80-7.70) 10*3/uL Monocytes # 1.41 H (0.20-1.00) 10*3/uL Eosinophils # 0.00 L (0.04-0.35) 10*3/uL Sodium (137-145) mmol/L Chloride (98-107) mmol/L Carbon Dioxide (22-30) mmol/L BUN (9-20) mg/dL Glucose (74-99) mg/dL POC Glucose (mg/dL) 207 H 217 H (70-110) mg/dL 08/02/24 08/02/24 Range/Units 05:27 12:06 WBC (4.50-10.00) 10*3/uL RBC (4.40-5.60) 10*6/uL Hgb (13.0-17.0) g/dL Hct (39.6-50.0) % Immature Gran # (0.00-0.04) 10*3/uL Neutrophils # (1.80-7.70) 10*3/uL Monocytes # (0.20-1.00) 10*3/uL Eosinophils # (0.04-0.35) 10*3/uL Sodium 127 L (137-145) mmol/L Chloride 80 L (98-107) mmol/L Carbon Dioxide 39 H (22-30) mmol/L BUN 31 H (9-20) mg/dL Glucose 125 H (74-99) mg/dL POC Glucose (mg/dL) 151 H (70-110) mg/dL Assessment and Plan Assessment: Leg pain, likely secondary to PAD/claudication with bilateral lower extremity edema Severe stable COPD with an FEV1 of 29% predicted, maintained on a combination of Symbicort/Spiriva on outpatient basis in addition to albuterol [facility] Chronic hypoxic respiratory failure, maintained on oxygen 3 L/min nasal cannula Chronic dyspnea, secondary to COPD Influenza A infection diagnosed on 07/22/2024, still positive on 07/28/2024 viral screen Hypochloremic hyponatremia Abnormal troponin, nonspecific Previous history of sputum culture positive for Stenotrophomonas maltophilia and 05/19/2024 Normocytic, normochromic anemia, hemoglobin slightly lower than baseline, no obvious acute blood loss Former tobacco dependence Obesity, with a BMI of of above 40 History of hyperlipidemia History of hypertension History of CAD, with previous stenting of the RCA, 2010 History of peripheral arterial disease Plan: The patient was seen and evaluated Labs and medications reviewed Continued on DuoNeb inhalations Continued on Symbicort, Spiriva Continued on Singulair Remains on a prednisone taper Heparin for DVT prophylaxis Patient has home oxygen and nebulizer Cleared for discharge from the pulmonary standpoint Plan is to return home with [facility] home care services This patient was seen independently by the pulmonary nurse practitioner erick grider pulmonary issues I have personally seen and examined the patient, performed the documentation and the assessment and plan as written. Number of minutes spent on the visit: 23 Dictation was produced using [employer]™ dictation software. Please excuse any grammatical, word or spelling errors.
--- NOTE | 2024-08-03 12:31 | CDI ---
Documentation Clarification Form Date: 08/03/2024 12:15:03 PM From: Vanesa Huynh Phone: Admit Date: 07/28/2024 12:06:00 AM Patient Name: Tiburcio Francisco Visit Number: [id number] Discharge Date: 08/02/2024 01:14:00 PM ATTENTION: The Clinical Documentation Specialists (CDI) and [facility] Coding Staff appreciate your assistance in clarifying documentation. Please respond to the clarification below the line at the bottom and electronically sign. The CDI & [facility] Coding staff will review the response and follow-up if needed. Please note: Queries are made part of the Legal Health Record. If you have any questions, please contact the author of this message via ITS. Doctor/Provider: Kristopher Dale Conflicting documentation has been found in the medical record. As attending physician, please provide clarification. 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 Clinical Indicators: 4/3 h/p note -EKGindependently interpreted displayingsinus tachycardia, rate 105 bpm, QTc 383 ms CXRindependently interpreted displaying trace leftpleural effusion T 97. 5 F, AR 158, RR 26, BP 165/86, O2 saturation 93% on room air Pn on 07/29 -Severe stableCOPDwith an FEV1 of 29% predicted, maintained on a combination of Breyna/Spiriva on outpatient basis in addition to albuterol Conflicting documentation updrafts Chronic hypoxic respiratory failure, maintained on oxygen 3 L/min nasal cannula Chronicdyspnea, secondary toCOPD Pn 07/30 -07/30/2024, patient is being seen for afollow-up. Slightly improved compared to yesterday. Lower extremity edemastill present. The patient is on Lasix 40 mg every 12 hours. Remains on bronchodilators. Remains on steroids. Continues to have acongestedcough. Sodium levels at 125, potassium level is at 4. 3, BUN 32 with a creatinine of 0. 8. The white cell count is at 13. 8 with a hemoglobin of 11. 7. Pn on 08/01 - Acute on chronic hypoxic hypercapnic respiratory failure, withviralpanel positive forinfluenzaA Overlyingacute COPD exacerbation(on 3 L home oxygen at night only) DS on 08/02 - Patient statesnumbnessbegan earlier this morning on bilateral plantar surface extending to the ankles. Patient was recently admitted foracute on chronic hypoxic respiratory failuresecondary toinfluenzaA. Patient states his shortness of breathhas gotten worse. Dyspneamade worse on exertion. Patient admits toorthopnea. Endorses acoughhowever denies any sputum production. Patient notices legs have beenswollenas well. Throughout the duration of his stay he was receiving 40 mg of Lasix IV twice daily to assist with theHFpEF exacerbationas well as receiving Solu-Medrol 60 mg every 6 hours as per pulmonology recommendation. He was then utilizing his home oxygen of 4 L while on nasal cannula and continued to saturate 90% Treatment: DuoNebs [id number] and as needed On 4 L nasal cannula, continue to wean down, keep O2 between 88-92% Prednisone 40 mg p. o. daily for 5 days Cepheid 4 Plex pending Cardiology consulted Pulmonology consulted Please clarify which diagnosis is most appropriate: [ ] [Acute on chronic hypoxic hypercapnic respiratory failure] [ ] [Chronic hypoxic respiratory failure] [ ] Other (please specify) [ ] Unable to determine (Template Last Revised: June 2020) [ ] [Chronic hypoxic respiratory failure] MTDD
== END 2024-08-02 13:14 | disposition home health service (06) | DRG 280 ==
LOC: EC 21:45 → OBSVTOIN 07-28 00:06 → 3SCARD 07-28 00:06 → 6NMEDSUR 07-28 10:57
PROVIDERS: ADMIT Internal Medicine; ATTEND Internal Medicine
DX: I11.0 Hypertensive heart disease with heart failure (principal); I50.33 Acute on chronic diastolic (congestive) heart failure; I21.A1 Myocardial infarction type 2; E87.3 Alkalosis; E87.1 Hypo-osmolality and hyponatremia; J44.1 Chronic obstructive pulmonary disease with (acute) exacerbation; E11.40 Type 2 diabetes mellitus with diabetic neuropathy, unspecified; D64.9 Anemia, unspecified; I27.20 Pulmonary hypertension, unspecified; E66.9 Obesity, unspecified; J96.11 Chronic respiratory failure with hypoxia; E11.51 Type 2 diabetes mellitus with diabetic peripheral angiopathy without gangrene; J10.1 Influenza due to other identified influenza virus with other respiratory manifestations; I25.10 Atherosclerotic heart disease of native coronary artery without angina pectoris; K21.9 Gastro-esophageal reflux disease without esophagitis; I25.5 Ischemic cardiomyopathy; E78.5 Hyperlipidemia, unspecified; E87.8 Other disorders of electrolyte and fluid balance, not elsewhere classified; Z99.81 Dependence on supplemental oxygen; Z79.84 Long term (current) use of oral hypoglycemic drugs; Z86.711 Personal history of pulmonary embolism; I25.2 Old myocardial infarction; Z87.891 Personal history of nicotine dependence; Z95.5 Presence of coronary angioplasty implant and graft; Z79.82 Long term (current) use of aspirin; Z68.32 Body mass index [BMI] 32.0-32.9, adult; Z79.899 Other long term (current) drug therapy; Z88.8 Allergy status to other drugs, medicaments and biological substances; Z79.02 Long term (current) use of antithrombotics/antiplatelets; Z79.1 Long term (current) use of non-steroidal anti-inflammatories (NSAID); Z79.51 Long term (current) use of inhaled steroids
CPT/HCPCS: 36415; 71046; 80048; 80053; 83735; 83880; 84484; 85025; 85610; 85730; 87636; 93005; 94640; 94760; 96372; 96374; 96375; 99285

== ENCOUNTER 2024-08-03 00:13 | Inpatient (IN) | payer OTHER, MEDICARE ==
--- NOTE | 2024-08-03 00:26 | ED ---
Weakness HPI - General Stated complaint: weakness Time Seen by Provider: 08/03/24 00:17 Source: patient Mode of arrival: EMS Limitations: no limitations - History of Present Illness Initial comments: This patient is 79-year-old male with history of COPD who presents with complain t of generalized weakness. The patient states that he was at home, in bed and he tried to get up out of bed to use the bathroom. Patient states that his legs were too weak to support him and he slid to the ground. He denies a fall or having any pain or injury. The patient was not able to get up, therefore EMS was called and brought the patient in because he was too weak to assist in getting up. Patient denies any other complaints. MD Complaint: generalized weakness -: hour(s) Location: generalized Severity scale (1-10): 0 Consistency: constant Improves with: none Worsens with: none Context: history of similar Associated Symptoms: denies other symptoms - Related Data Home Medications Medication Instructions Recorded Confirmed Aspirin EC [Ecotrin Low Dose] 81 mg PO DAILY 06/22/18 08/03/24 Budesonide/Formoterol Fumarate 2 puff INHALATION RT-BID 06/22/18 08/03/24 [Symbicort 160-4.5 Mcg Inhaler] Ipratropium/Albuterol Sulfate 1 puff INHALATION RT-QID 06/22/18 08/03/24 [Combivent Respimat Inhaler] Metoprolol Tartrate [Lopressor] 25 mg PO BID 06/22/18 08/03/24 Clopidogrel Bisulfate [Plavix] 75 mg PO DAILY 07/01/18 08/03/24 Albuterol Inhaler [Ventolin Hfa 2 puff INHALATION RT-TID PRN 12/07/19 08/03/24 Inhaler] Albuterol Nebulized [Ventolin 2.5 mg INHALATION RT-QID 12/07/19 08/03/24 Nebulized] Loratadine [Claritin] 10 mg PO DAILY 12/07/19 08/03/24 Simvastatin [Zocor] 40 mg PO HS 12/07/19 08/03/24 Tiotropium 18 Mcg/Puff [Spiriva] 2 puff INHALATION RT-DAILY 12/07/19 08/03/24 Cholecalciferol [Vitamin D3 (25 25 mcg PO BID 03/17/24 08/03/24 Mcg = 1000 Iu)] Furosemide [Lasix] 40 mg PO DAILY 04/16/24 08/03/24 HYDROcodone/APAP 5-325MG [[place] 1 tab PO TID PRN 07/28/24 08/03/24 5-325] Meloxicam [Mobic] 7.5 mg PO DAILY 07/28/24 08/03/24 Ondansetron Odt [Zofran ODT] 4 mg PO Q8HR PRN 07/28/24 08/03/24 predniSONE See Taper PO DIRECTED 08/03/24 08/03/24 Previous Rx's Medication Instructions Recorded Spironolactone [Aldactone] 25 mg PO DAILY #90 tab 06/24/24 predniSONE See Taper PO DAILY #18 tab 07/19/24 Losartan [Cozaar] 12.5 mg PO DAILY #30 tab 08/02/24 Ferrous Sulfate [Iron (65 MG 325 mg PO W/LUNCH 14 Days #14 tab 08/04/24 Elemental)] Folic Acid 1 mg PO DAILY 14 Days #14 tab 08/04/24 Allergies Allergy/AdvReac Type Severity Reaction Status Date / Time fluticasone AdvReac Nausea Verified 08/03/24 00:25 [From [facility]] levofloxacin [From Levaquin] AdvReac TENDON PAIN Verified 08/03/24 00:25 salmeterol AdvReac Nausea Verified 08/03/24 00:25 [From [facility]ix[facility] In[facility]] Review of Systems ROS Statement: Those systems with pertinent positive or pertinent negative responses have been documented in the HPI. ROS Other: All systems not noted in ROS Statement are negative. Constitutional: Reports: weakness. Denies: fever, chills Respiratory: Reports: dyspnea (Chronic), wheezes (Chronic). Denies: cough Cardiovascular: Reports: edema (Chronic). Denies: chest pain, palpitations Gastrointestinal: Denies: abdominal pain, vomiting, diarrhea Genitourinary: Denies: dysuria, hematuria Musculoskeletal: Denies: back pain Skin: Denies: rash Neurological: Denies: headache, weakness, numbness Past Medical History Past Medical History: Coronary Artery Disease (CAD), COPD, GERD/Reflux, Hyperlipidemia, Hypertension, Myocardial Infarction (MS), Pulmonary Embolus (PE), Renal Disease Additional Past Medical History / Comment(s): home O2 (3L [place] HS), bilateral PEs in 2004, history ETOH abuse - pt states he has never had withdrawal symptoms, chronic low back pain/sciatica/spurs/disc disease - much improved after back injections, past urinary retention, diverticulitis/benign colon polyps removed, nephrolithiasis - passed stones on his own, shingelles 16 years ago - R shoulder. Last Myocardial Infarction Date:: 2010 History of Any Multi-Drug Resistant Organisms: None Reported Past Surgical History: Heart Catheterization With Stent Additional Past Surgical History / Comment(s): back injections for pain, piece of metal removed from right eye, EGD, colonoscopy Past Anesthesia/Blood Transfusion Reactions: No Reported Reaction Additional Past Anesthesia/Blood Transfusion Reaction / Comment(s): claustrophobia Date of Last Stent Placement:: 2010 Past Psychological History: Anxiety, Depression, PTSD Smoking Status: Former smoker Past Alcohol Use History: None Reported Past Drug Use History: None Reported - Past Family History Mother Family Medical History: Cancer Additional Family Medical History / Comment(s): from breast cancer at age 53. Father Family Medical History: Coronary Artery Disease (CAD), Myocardial Infarction (MS) Additional Family Medical History / Comment(s): 4 MIs/CABG. at age 72. General Exam General appearance: alert, in no apparent distress Head exam: Present: atraumatic, normocephalic Eye exam: Present: normal appearance. Absent: scleral icterus, conjunctival injection Neck exam: Present: normal inspection, full ROM. Absent: tenderness Respiratory exam: Present: wheezes, decreased breath sounds. Absent: rales, rhonchi, stridor, chest wall tenderness, accessory muscle use Cardiovascular Exam: Present: tachycardia (Rate approximately 104 at my exam), irregular rhythm, systolic murmur. Absent: diastolic murmur, rubs, gallop GI/Abdominal exam: Present: soft. Absent: distended, tenderness, guarding, rebound, rigid, mass Extremities exam: Present: normal capillary refill, pedal edema. Absent: calf tenderness Back exam: Present: normal inspection. Absent: CVA tenderness (R), CVA tenderness (L) Neurological exam: Present: alert, oriented X3, CN II-XII intact. Absent: motor sensory deficit Skin exam: Present: warm, dry, intact, normal color. Absent: rash Course Vital Signs 08/03/24 08/03/24 08/03/24 00:19 00:26 00:40 Temperature 97.5 F L Pulse Rate 100 104 H Respiratory 20 20 22 Rate Blood Pressure 97/78 68/45 O2 Sat by Pulse 90 L Oximetry 08/03/24 08/03/24 08/03/24 00:42 00:48 00:50 Temperature Pulse Rate 112 H 112 H 128 H Respiratory 22 Rate Blood Pressure 63/40 O2 Sat by Pulse Oximetry 08/03/24 08/03/24 08/03/24 01:01 01:12 01:28 Temperature Pulse Rate 117 H 93 111 H Respiratory 24 24 24 Rate Blood Pressure 80/58 74/44 O2 Sat by Pulse 100 Oximetry 08/03/24 08/03/24 08/03/24 02:07 02:38 03:35 Temperature 98.4 F Pulse Rate 109 H 101 H Respiratory 25 H 25 H Rate Blood Pressure 88/71 79/58 O2 Sat by Pulse 98 97 Oximetry 08/03/24 08/03/24 08/03/24 05:13 06:16 06:23 Temperature 94.6 F L 93.6 F L 94.3 F L Pulse Rate 99 97 96 Respiratory 25 H 24 Rate Blood Pressure 87/49 72/37 63/52 O2 Sat by Pulse 95 99 Oximetry 08/03/24 08/03/24 08/03/24 06:33 06:53 07:02 Temperature 97.3 F L Pulse Rate 98 98 Respiratory 24 Rate Blood Pressure 87/53 111/55 O2 Sat by Pulse Oximetry 08/03/24 08/03/24 08/03/24 07:28 07:37 08:57 Temperature 97.1 F L Pulse Rate 108 H 110 H 96 Respiratory 20 Rate Blood Pressure 123/66 O2 Sat by Pulse Oximetry 08/03/24 08/03/24 08/03/24 10:04 10:30 10:58 Temperature Pulse Rate 95 94 Respiratory 20 Rate Blood Pressure 133/74 133/74 120/76 O2 Sat by Pulse 95 100 Oximetry 08/03/24 08/03/24 08/03/24 11:00 11:30 12:00 Temperature Pulse Rate 107 H 106 H 103 H Respiratory Rate Blood Pressure 120/76 102/75 120/68 O2 Sat by Pulse 98 95 99 Oximetry 08/03/24 08/03/24 08/03/24 12:30 13:00 13:30 Temperature Pulse Rate 96 120 H 94 Respiratory Rate Blood Pressure 132/77 119/64 140/66 O2 Sat by Pulse 92 L 100 Oximetry 08/03/24 08/03/24 08/03/24 14:00 14:24 14:30 Temperature 97.7 F Pulse Rate 121 H 122 H Respiratory 20 Rate Blood Pressure 132/68 123/82 106/75 O2 Sat by Pulse 97 Oximetry 08/03/24 08/03/24 08/03/24 14:56 15:04 16:07 Temperature Pulse Rate 104 H 107 H 106 H Respiratory 20 Rate Blood Pressure 118/74 O2 Sat by Pulse 97 Oximetry 08/03/24 08/03/24 08/03/24 18:00 18:33 19:00 Temperature Pulse Rate 115 H 110 H 118 H Respiratory 18 18 18 Rate Blood Pressure 73/53 98/56 90/60 O2 Sat by Pulse 96 96 94 L Oximetry 08/03/24 08/03/24 08/03/24 20:00 21:00 22:00 Temperature Pulse Rate 106 H 100 96 Respiratory 18 18 18 Rate Blood Pressure 103/70 110/64 93/73 O2 Sat by Pulse 98 96 94 L Oximetry 08/03/24 08/04/24 08/04/24 23:00 00:30 01:33 Temperature Pulse Rate 90 100 98 Respiratory 18 18 18 Rate Blood Pressure 130/64 120/60 128/68 O2 Sat by Pulse 98 96 Oximetry 08/04/24 08/04/24 08/04/24 02:33 04:06 04:45 Temperature Pulse Rate 104 H 138 H 125 H Respiratory 18 30 H 30 H Rate Blood Pressure 110/70 118/83 99/65 O2 Sat by Pulse 94 L Oximetry EKG Findings - EKG Results: EKG: interpreted by ERMD, normal axis, normal QRS EKG shows: atrial fibrillation (With rate approximately 112 bpm) - Blocks, [place], Hypertrophy, ST Abn: Repolarization changes or abnormalities: nonspecific abnormality, ST segment, and/or T wave Procedures - Central Line Placement Right Femoral Consent Obtained: verbal consent Patient Placed on Monitor/Pulse Ox: Yes Prep: mask, gown, gloves Central Line Prep: Chlorhexidine scrub, sterile drapes applied Local Anesthesia Used: Lidocaine 1% Ultrasound Used for Placement: Yes Central Line Lumen Inserted: triple Bloods Obtained for Lab: Yes Central Line Position: good blood return, all ports aspirated, flushed, capped, sutured in place with 2-0 silk Dressing Applied: Tegaderm Patient Tolerated Procedure: well, no complications Complications: none - Sepsis Sepsis Focused Exam #1 Sepsis Focused Exam Date: 08/03/24 Sepsis Focused Exam Time: 07:00 Sepsis Focused Exam Complete: Yes Vital Signs & RN Notes Reviewed: Yes Capillary Refill: < 2 Seconds: Fingers Peripheral Pulses: Weak: Radial (R) Skin Color: Flushed Respiratory Exam: rhonchi Cardiovascular Exam: regular rate, irregular rhythm, normal heart sounds Medical Decision Making - Medical Decision Making The initial fluid bolus for sepsis is limited given that the patient has history of reduced ejection fraction and does have some evidence of volume overload on the physical exam. The patient had chest x-ray that I interpreted as unchanged from previous. No pneumothorax, no bony abnormality Patient had poor peripheral IV access, therefore discussed risks, benefits, noel cations of central line placement and the patient did consent. He initially requested IV access in the chest, I did attempt a right subclavian central line placement but the patient was not able to tolerate the position, lying flat on his back due to having back pain. I did switch to the right groin approach after making an initial attempt at cannulation of the right subclavian. Chest x-ray ordered, to ensure that there is no pneumothorax, but there was no air obtained on syringe. The right femoral line placement went without complication. Was pt. sent in by a medical professional or institution (, PA, HYDROGENATION STILL OPERATOR, urgent care, hospital, or skilled nursing...) When possible be specific @ -[No] Did you speak to anyone other than the patient for history (EMS, parent, family, police, friend...)? What history was obtained from this source @ -[No] Did you review nursing and triage notes (agree or disagree)? Why? @ -[I reviewed and agree with nursing and triage notes] Were old charts reviewed (outside hosp., previous admission, EMS record, old EKG, old radiological studies, urgent care reports/EKG's, skilled nursing records)? Report findings @ -[Yes, old charts were reviewed] Differential Diagnosis (chest pain, altered mental status, abdominal pain women, abdominal pain men, vaginal bleeding, weakness, fever, dyspnea, syncope, headache, dizziness, GI bleed, back pain, seizure, CVA, palpatations, mental health, musculoskeletal)? @ -[Differential Weakness: Hypoglycemia, shock, sepsis, hyponatremia, anemia, infection, MS, ETOH, adverse medicine reaction, overdose, stroke, this is not meant to be an all-inclusive list. EKG interpreted by me (3pts min.). @ -[I interpreted as above] X-rays interpreted by me (1pt min.). @ -[I interpreted as above CT interpreted by me (1pt min.). @ -[None done] U/S interpreted by me (1pt. min.). @ -[None done] What testing was considered but not performed or refused? (CT, X-rays, U/S, labs)? Why? @ -[None] What meds were considered but not given or refused? Why? @ -[None] Did you discuss the management of the patient with other professionals (professionals i.e. , PA, HYDROGENATION STILL OPERATOR, lab, RT, psych nurse, social research assistant, curriculum and assessment coordinator, teacher, supply requirements officer, returned case inspector)? Give summary @ -[Case discussed with admitting physician and also with tool crib supervisor service and treatment recommendations incorporated Was smoking cessation discussed for >3mins.? @ -[No] Was critical care preformed (if so, how long)? @ -[Yes, 40 minutes Were there social determinants of health that impacted care today? How? (Homelessness, low income, unemployed, alcoholism, drug addiction, transportation, low edu. Level, literacy, decrease access to med. care, mcc, rehab)? @ -[No] Was there de-escalation of care discussed even if they declined (Discuss DNR or withdrawal of care, Hospice)? DNR status @ -[No] What co-morbidities impacted this encounter? (DM, HTN, Smoking, COPD, CAD, Cancer, CVA, ARF, Chemo, Hep., AIDS, mental health diagnosis, sleep apnea, mo rbid obesity)? @ -[COPD, diabetes, hypertension, peripheral vascular disease, congestive heart failure with reduced ejection fraction Was patient admitted / discharged? Hospital course, mention meds given and route, prescriptions, significant lab abnormalities, going to OR and other pertinent info. @ -[Patient is 79-year-old man with history of COPD brought to have evaluation for weakness. The patient does appear to have sepsis with source being either COPD or possible pneumonia though the x-ray does not show definite infiltrate. The patient started on antibiotics. Fluid administration is slower than sepsis protocol given the underlying heart failure with reduced ejection fraction and t he exam with leg edema. The patient remaining hypotensive, central line started, see above Undiagnosed new problem with uncertain prognosis? @ -[No] Drug Therapy requiring intensive monitoring for toxicity (Heparin, Nitro, Insulin, Cardizem)? @ -Levophed Were any procedures done? @ -[Central line to the note Diagnosis/symptom? @ -[Acute exacerbation of COPD Sepsis Lactic acidosis Elevated troponin Hyponatremia Hyperglycemia Acute, or Chronic, or Acute on Chronic? @ -[Acute Uncomplicated (without systemic symptoms) or Complicated (systemic symptoms)? @ -[Complicated Side effects of treatment? @ -[No] Exacerbation, Progression, or Severe Exacerbation? @ -[No] Poses a threat to life or bodily function? How? (Chest pain, [place], MS, pneumonia, PE, COPD, DKA, ARF, appy, cholecystitis, CVA, Diverticulitis, Homicidal, Suicidal, threat to staff... and all critical care pts) @ -[Yes significant risk of worsening respiratory failure/congestive heart failure/ All treatments are based on ideal body weight as in ED triage - Lab Data Result diagrams: 08/03/24 06:15 08/03/24 06:15 Lab Results 08/03/24 08/03/24 08/03/24 Range/Units 00:55 00:55 00:55 WBC (4.50-10.00) 10*3/uL RBC (4.40-5.60) 10*6/uL Hgb (13.0-17.0) g/dL Hct (39.6-50.0) % MCV (80.0-97.0) fL MCH (27.0-32.0) pg MCHC (32.0-37.0) g/dL Plt Count (140-440) 10*3/uL MPV (9.5-12.2) fL Immature Gran % (Auto) % Neutrophils % (Manual) % Band Neuts % (Manual) % Lymphocytes % (Manual) % Monocytes % (Manual) % Metamyelocytes % % Immature Gran # (0.00-0.04) 10*3/uL Neutrophils # (Manual) (1.3-7.7) k/uL Lymphocytes # (Manual) (1.0-4.8) k/uL Monocytes # (Manual) (0-1.0) k/uL Metamyelocytes # (Man) (0) k/uL Nucleated RBCs (0-0) /100 WBC Manual Slide Review Poikilocytosis (manual PT (10.0-12.5) sec INR (<1.2) APTT (22.0-30.0) sec Sodium 128 L (137-145) mmol/L Potassium 3.7 (3.5-5.1) mmol/L Chloride 81 L (98-107) mmol/L Carbon Dioxide 33 H (22-30) mmol/L Anion Gap 14 mmol/L BUN 43 H (9-20) mg/dL Creatinine 1.49 H (0.66-1.25) mg/dL Est GFR (CKD-EPI)AfAm 52 (>60 ml/min/1.73 sqM) Est GFR (CKD-EPI)NonAf 45 (>60 ml/min/1.73 sqM) Glucose 167 H (74-99) mg/dL Lactic Ac Sepsis Rflx Plasma Lactic Acid Sandor 8.6 H* (0.7-2.0) mmol/L Calcium 9.3 (8.4-10.2) mg/dL Magnesium 2.1 (1.6-2.3) mg/dL Total Bilirubin 0.9 (0.2-1.3) mg/dL AST 27 (17-59) U/L ALT 34 (4-49) U/L Alkaline Phosphatase 82 (38-126) U/L Creatine Kinase (55-170) U/L Troponin I 0.157 H* (0.000-0.034) ng/mL NT-Pro-B Natriuret Pep 2430 pg/mL Total Protein 6.0 L (6.3-8.2) g/dL Albumin 3.6 (3.5-5.0) g/dL Urine Color Urine Appearance (Clear) Urine pH (5.0-8.0) Ur Specific [place] (1.001-1.035) Urine Protein (Negative) Urine Glucose (UA) (Negative) Urine Ketones (Negative) Urine Blood (Negative) Urine Nitrite (Negative) Urine Bilirubin (Negative) Urine Urobilinogen (<2.0) mg/dL Ur Leukocyte Esterase (Negative) 08/03/24 08/03/24 08/03/24 Range/Units 00:55 01:32 02:13 WBC 22.82 H (4.50-10.00) 10*3/uL RBC 4.07 L (4.40-5.60) 10*6/uL Hgb 11.9 L (13.0-17.0) g/dL Hct 34.0 L (39.6-50.0) % MCV 83.5 (80.0-97.0) fL MCH 29.2 (27.0-32.0) pg MCHC 35.0 (32.0-37.0) g/dL Plt Count 355 (140-440) 10*3/uL MPV 9.3 L (9.5-12.2) fL Immature Gran % (Auto) 6.0 % Neutrophils % (Manual) 88 % Band Neuts % (Manual) 2 % Lymphocytes % (Manual) 7 % Monocytes % (Manual) 3 % Metamyelocytes % 1 % Immature Gran # 1.37 H (0.00-0.04) 10*3/uL Neutrophils # (Manual) 20.53 H (1.3-7.7) k/uL Lymphocytes # (Manual) 1.60 (1.0-4.8) k/uL Monocytes # (Manual) 0.68 (0-1.0) k/uL Metamyelocytes # (Man) 0.23 H (0) k/uL Nucleated RBCs 0 (0-0) /100 WBC Manual Slide Review Performed Poikilocytosis (manual Present PT (10.0-12.5) sec INR (<1.2) APTT (22.0-30.0) sec Sodium (137-145) mmol/L Potassium (3.5-5.1) mmol/L Chloride (98-107) mmol/L Carbon Dioxide (22-30) mmol/L Anion Gap mmol/L BUN (9-20) mg/dL Creatinine (0.66-1.25) mg/dL Est GFR (CKD-EPI)AfAm (>60 ml/min/1.73 sqM) Est GFR (CKD-EPI)NonAf (>60 ml/min/1.73 sqM) Glucose (74-99) mg/dL Lactic Ac Sepsis Rflx Y Plasma Lactic Acid Sand[place] (0.7-2.0) mmol/L Calcium (8.4-10.2) mg/dL Magnesium (1.6-2.3) mg/dL Total Bilirubin (0.2-1.3) mg/dL AST (17-59) U/L ALT (4-49) U/L Alkaline Phosphatase (38-126) U/L Creatine Kinase 39 L (55-170) U/L Troponin I (0.000-0.034) ng/mL NT-Pro-B Natriuret Pep pg/mL Total Protein (6.3-8.2) g/dL Albumin (3.5-5.0) g/dL Urine Color Urine Appearance (Clear) Urine pH (5.0-8.0) Ur Specific [place] (1.001-1.035) Urine Protein (Negative) Urine Glucose (UA) (Negative) Urine Ketones (Negative) Urine Blood (Negative) Urine Nitrite (Negative) Urine Bilirubin (Negative) Urine Urobilinogen (<2.0) mg/dL Ur Leukocyte Esterase (Negative) 08/03/24 08/03/24 Range/Units 03:39 04:23 WBC (4.50-10.00) 10*3/uL RBC (4.40-5.60) 10*6/uL Hgb (13.0-17.0) g/dL Hct (39.6-50.0) % MCV (80.0-97.0) fL MCH (27.0-32.0) pg MCHC (32.0-37.0) g/dL Plt Count (140-440) 10*3/uL MPV (9.5-12.2) fL Immature Gran % (Auto) % Neutrophils % (Manual) % Band Neuts % (Manual) % Lymphocytes % (Manual) % Monocytes % (Manual) % Metamyelocytes % % Immature Gran # (0.00-0.04) 10*3/uL Neutrophils # (Manual) (1.3-7.7) k/uL Lymphocytes # (Manual) (1.0-4.8) k/uL Monocytes # (Manual) (0-1.0) k/uL Metamyelocytes # (Man) (0) k/uL Nucleated RBCs (0-0) /100 WBC Manual Slide Review Poikilocytosis (manual PT 10.4 (10.0-12.5) sec INR 0.9 (<1.2) APTT 18.5 L (22.0-30.0) sec Sodium (137-145) mmol/L Potassium (3.5-5.1) mmol/L Chloride (98-107) mmol/L Carbon Dioxide (22-30) mmol/L Anion Gap mmol/L BUN (9-20) mg/dL Creatinine (0.66-1.25) mg/dL Est GFR (CKD-EPI)AfAm (>60 ml/min/1.73 sqM) Est GFR (CKD-EPI)NonAf (>60 ml/min/1.73 sqM) Glucose (74-99) mg/dL Lactic Ac Sepsis Rflx Plasma Lactic Acid [place] (0.7-2.0) mmol/L Calcium (8.4-10.2) mg/dL Magnesium (1.6-2.3) mg/dL Total Bilirubin (0.2-1.3) mg/dL AST (17-59) U/L ALT (4-49) U/L Alkaline Phosphatase (38-126) U/L Creatine Kinase (55-170) U/L Troponin I (0.000-0.034) ng/mL NT-Pro-B Natriuret Pep pg/mL Total Protein (6.3-8.2) g/dL Albumin (3.5-5.0) g/dL Urine Color Light Yellow Urine Appearance Clear (Clear) Urine pH 7.0 (5.0-8.0) Ur Specific [place] 1.008 (1.001-1.035) Urine Protein Negative (Negative) Urine Glucose (UA) Negative (Negative) Urine Ketones Negative (Negative) Urine Blood Negative (Negative) Urine Nitrite Negative (Negative) Urine Bilirubin Negative (Negative) Urine Urobilinogen <2.0 (<2.0) mg/dL Ur Leukocyte Esterase Negative (Negative) Disposition Clinical Impression: COPD with acute exacerbation, Sepsis, Elevated troponin, Hyponatremia, Weakness Disposition: ADMITTED IP TO THIS HOSP Condition: Poor
[2024-08-03] MEDS: ALBUTEROL NEBULIZED 2.5 MG/3 ML INHALATION STA (00:42)
[2024-08-03 01:35] LABS: AST 27 U/L (17-59); African American GFR (CKD) 52 (>60 ml/min/1.73 sqM); Albumin 3.6 g/dL (3.5-5.0); Alkaline Phosphatase 82 U/L (38-126); Anion Gap 14 mmol/L; Blood Urea Nitrogen 43 mg/dL (9-20); Calcium 9.3 mg/dL (8.4-10.2); Carbon Dioxide 33 mmol/L (22-30); Chloride 81 mmol/L (98-107); Glucose 167 mg/dL (74-99); Magnesium 2.1 mg/dL (1.6-2.3); Non-African American GFR(CKD) 45 (>60 ml/min/1.73 sqM); Potassium 3.7 mmol/L (3.5-5.1); Sodium 128 mmol/L (137-145); Total Bilirubin 0.9 mg/dL (0.2-1.3)
[2024-08-03 01:41] LABS: ALT 34 U/L (4-49)
[2024-08-03 01:44] LABS: NT-Pro-B-Type Natriuretic Pept 2430 pg/mL
[2024-08-03 01:47] LABS: HGB 11.9 g/dL (13.0-17.0); MCH 29.2 pg (27.0-32.0); MCV 83.5 fL (80.0-97.0); Mean Platelet Volume 9.3 fL (9.5-12.2); Platelet Count 355 10*3/uL (140-440); RBC 4.07 10*6/uL (4.40-5.60); RDW 14.4 % (11.5-14.5); WBC 22.82 10*3/uL (4.50-10.00)
[2024-08-03] MEDS: SODIUM CHLORIDE 0.9% 500 ML 500 ML IV STA (01:47)
[2024-08-03] MEDS: SODIUM CHLORIDE 0.9% 1,000 ML IV STA (01:55)
--- NOTE | 2024-08-03 02:33 | XR ---
EXAM: XR Chest, 1 View CLINICAL HISTORY: ITS.REASON XR Reason: weakness TECHNIQUE: Frontal view of the chest. COMPARISON: CT dated 07/16/24, XR Chest dated 07/27/2024 FINDINGS: Lungs: Left basilar opacity similar to the priors. Correlates with prominent pericardial fat on the prior CT. Pleural space: Unremarkable. No pneumothorax. Heart: Unremarkable. No cardiomegaly. Mediastinum: Unremarkable. Normal mediastinal contour. Bones/joints: Unremarkable. No acute fracture. IMPRESSION: 1. No evidence of acute cardiopulmonary disease. 2. Left basilar opacity similar to the priors. Correlates with prominent pericardial fat on the prior CT.
[2024-08-03 03:00] LABS: Band Neutrophils % 2 %; Metamyelocytes # (M) 0.23 k/uL (0); Metamyelocytes % 1 %; Monocytes # (M) 0.68 k/uL (0-1.0); Neutrophils # (M) 20.53 k/uL (1.3-7.7); Neutrophils % (M) 88 %; Nucleated Red Blood Cells 0 /100 WBC (0-0); Total Cells Counted 200
[2024-08-03 03:01] LABS: Poikilocytosis (M) Present
[2024-08-03] MEDS: LIDOCAINE 2% URO-JET JELLY 5 ML KIT URETHRAL ONE (04:19)
[2024-08-03 04:56] LABS: Appearance,Urine Clear (Clear); Bilirubin,Urine Negative (Negative); Blood,Urine Negative (Negative); Color,Urine Light Yellow; Glucose,Urine (UA) Negative (Negative); Ketones,Urine Negative (Negative); Leukocyte Esterase,Urine Negative (Negative); Nitrite,Urine Negative (Negative); Protein,Urine Negative (Negative); Specific Gravity,Urine 1.008 (1.001-1.035); Urobilinogen,Urine <2.0 mg/dL (<2.0)
[2024-08-03 05:02] LABS: INR 0.9 (<1.2); Prothrombin Time 10.4 sec (10.0-12.5)
--- NOTE | 2024-08-03 05:10 | XR ---
EXAM: XR Chest, 1 View CLINICAL HISTORY: subclavian line attempted TECHNIQUE: Frontal view of the chest. COMPARISON: 07/17/24 FINDINGS: Lungs: Small amount of airspace opacities over left lower lung zone. Pleural space: No detectable pneumothorax.. Mediastinum: Unremarkable. Normal mediastinal contour. Bones/joints: No acute findings. IMPRESSION: Small amount of left basilar atelectasis and/or pneumonia versus aspiration. No detectable pneumothorax.
[2024-08-03] MEDS ORDERED: ALBUTEROL NEBULIZED 2.5 MG/3 ML INHALATION PRN (05:15)
[2024-08-03] MEDS: LACTATED RINGERS 500 ML IV ONE (05:38)
[2024-08-03] MEDS: SODIUM CHLORIDE 0.9% 1,000 ML IV ONE ×2 (05:39→09:01)
[2024-08-03] MEDS: LACTATED RINGERS 1,000 ML IV ONE (05:39)
[2024-08-03] MEDS: HYDROCORTISONE SUCCINATE 100 MG/2 ML VIAL IV STA (05:42)
[2024-08-03] MEDS ORDERED: HYDROmorphone 0.5 MG/0.5 ML SYRINGE IVP PRN (05:56)
[2024-08-03] MEDS ORDERED: VANCOMYCIN IV PER PHARMACY 1 EACH MISC MISCELLANE PRN (05:57)
[2024-08-03] MEDS ORDERED: RX INFO: IV CONTRAST WAS GIVEN 1 EACH MISC MISCELLANE PRN (05:59)
[2024-08-03 06:00] LABS: Partial Thromboplastin Time 18.5 sec (22.0-30.0)
--- NOTE | 2024-08-03 06:09 | P.HPIM ---
History of Present Illness H&P Date: 08/03/24 Chief Complaint: Weakness Patient is a 79 year old male with past medical history of COPD (on 4L at night), HFpEF, CAD with multiple stents, hypertension, None insulin-dependent diabetes mellitus, history of PE, hyperlipidemia presented to the ED with generalized weakness. Patient was admitted on 07/28/2024 with acute on chronic hypoxic and hypercapnic respiratory failure with viral panel positive for influenza A along with acute COPD exacerbation as well as acute HFpEF ex acerbation with the most recent echocardiogram done on 04/11/2024 showing EF 55 to 60%. He did express concern in the ability for him to take care of himself upon discharge which is part of the reason efforts were made to continue to take off more fluid with continued Lasix use. Continues to saturate in the high 90%'s while utilizing 4 L nasal cannula, which is what he would use at home. He was discharged home with home care on 08/02/24 on prednisone taper. After he went home the patient reports trying to get out of bed to use the bathroom which is when his leg started to feel too weak to support him. He then slid to the ground but denies having a fall. EMS was called as the patient was unable to get up, who brought the patient in because he was too weak. Patient doesn't remember if he took his medications after going home yesterday. Denies fever, chills, shortness of breath, cough, chest pain, palpitations, abdominal pain, nausea, vomiting, hematuria, dysuria, hematochezia, melena, headache, slurred speech, numbness, tingling, dizziness, lightheadedness, blurred vision, double vision. ED documentation reviewed. Patient had poor peripheral IV access, right femoral line was placed in the ED. In the ED patient was treated with 5 500 mL bolus as well as 1 L bolus of 0.9 normal saline along with nebulized albuterol and Rocephin. Vitals on admission T 97.5 F, TN 100 bpm, RR 20, BP 97/78, oxygen saturation 90% on 4 L oxygen via nasal cannula EKG independently interpreted as atrial fibrillation with rapid ventricular response, rate 112 bpm, QTc 439 ms Chest x-ray shows no evidence of acute cardiopulmonary disease, left basilar opacity, similar to priors which correlates with prominent pericardial fat on the prior CT Labs on admission show WBC 22.82, hemoglobin 11.9, sodium 128, potassium 3.7, chloride 81, bicarb 33, BUN 43, creatinine 1.49, lactic acid 8.6, magnesium 2.1, total bilirubin 0.9, CK 39, troponin I 0.157, NT proBNP 2430 UA is negative Review of systems: Pertinent positives and negatives as discussed in HPI, a complete review of systems was performed and all other systems are negative. Physical examination: Vital signs reviewed General: ill appearing, appears at stated age Head: atraumatic, normocephalic, symmetric Eyes: EOMI, anicteric sclera Mouth: no lip lesion, mucus membranes moist Cardiovascular: S1 S2 reg, no murmur Lungs: Diminished lung sounds bilaterally, bilateral inspiratory/expiratory wheezing, crackles Abdominal: soft, non-tender to palpation : central line in right groin Extremities: bilateral lower extremity 2+ pitting edema to knees Neuro: Confused, Gross neurological examination did not reveal any focal deficits. Psych: Cooperative Assessment/Plan: Patient is a 79 year old male with past medical history of COPD (on 4L at night), HFpEF, CAD with multiple stents, hypertension, None insulin-dependent diabetes mellitus, history of PE, hyperlipidemia presented to the ED with generalized weakness and shock. Active: #. Shock, hypovolemic vs septic #. Hypothermia #. Altered mental status #. Recent HfpEF and COPD exacerbation and Influenza A infection #. Lactic acidosis #. Type II NSTEMI, secondary to above BP 79/58, Lactic acid 8.6, NT pro BNP 2430 Chest Xray negative for acute process UA is negative Received 500 ml , 1L bolus of normal saline and 500 ml bolus of LR in the ED along with Rocephin Transfer to ICU for pressor support Continue supplemental oxygen, currently on 5 L of oxygen via nasal cannula Continue 0.9 normal saline 130 mL/h Start Vancomycin and Cefepime empirically for sepsis Resume home breathing treatment of Spiriva, Symbicort, Singulair Hold home Aldactone, Lasix, Losartan, Metoprolol Obtain blood culture, urinalysis Obtain CT abdomen pelvis and CT head Repeat lactic acid Daily weights, I's and O's Continue telemetry monitoring #. FABIENNE, prerenal creatinine 1.49, gfr 45 baseline creatinine 0.9 Continue 0.9 normal saline at 130 ml/hr Hold Gabapentin Monitor BMP #. Possible new onset Atrial fibrillation with rapid ventricular rate EKG independently interpreted as atrial fibrillation with rapid ventricular response, rate 112 bpm, QTc 439 ms Repeat EKG #. Leukocytosis, reactive likely due to recent steroid use WBC 22.82 Monitor CBC #. Hyponatremia, likely due poor solute intake Continue 0.9 normal saline at 130 ml/hr Monitor BMP Chronic: #. GERD #. Neuropathy #. CAD with multiple stents #. Normocytic anemia #. Non insulin dependent diabetes mellitus Continue insulin sliding scale and monitor for hypoglycemia, aspirin 80 mg p.o. daily, clopidogrel 75 mg PO daily, Lipitor 20 mg p.o. at bedtime, pantoprazole 40 mg p.o. daily, ferrous sulfate 325 mg p.o. daily, folic acid 1 mg p.o. daily F: 0.9 normal saline at 130 ml/hr E: Replete Na N: NPO DVT prophylaxis: Heparin 5000 U SQ Q8HR GI prophylaxis: Pantoprazole 40 mg PO daily The patient is admitted with an anticipated more than 2 midnight stay for evaluation of weakness CODE STATUS: FULL CODE Discussed with: Patient Anticipated discharge place: Home Past Medical History Past Medical History: Coronary Artery Disease (CAD), COPD, GERD/Reflux, Hyperlipidemia, Hypertension, Myocardial Infarction ([place]), Pulmonary Embolus ([place]), Renal Disease Additional Past Medical History / Comment(s): home O2 (3L [place]), bilateral PEs in 2003, history ETOH abuse - pt states he has never had withdrawal symptoms, chronic low back pain/sciatica/spurs/disc disease - much improved after back injections, past urinary retention, diverticulitis/benign colon polyps removed, nephrolithiasis - passed stones on his own, shingelles 16 years ago - R shoulder. Last Myocardial Infarction Date:: 2010 History of Any Multi-Drug Resistant Organisms: None Reported Past Surgical History: Heart Catheterization With Stent Additional Past Surgical History / Comment(s): back injections for pain, piece of metal removed from right eye, EGD, colonoscopy Past Anesthesia/Blood Transfusion Reactions: No Reported Reaction Additional Past Anesthesia/Blood Transfusion Reaction / Comment(s): claustrophobia Date of Last Stent Placement:: 2010 Past Psychological History: Anxiety, Depression, PTSD Smoking Status: Former smoker Past Alcohol Use History: None Reported Past Drug Use History: None Reported - Past Family History Mother Family Medical History: Cancer Additional Family Medical History / Comment(s): from breast cancer at age 53. Father Family Medical History: Coronary Artery Disease (CAD), Myocardial Infarction ([place]) Additional Family Medical History / Comment(s): 4 MIs/CABG. at age 72. Medications and Allergies Home Medications Medication Instructions Recorded Confirmed Type Aspirin EC [Ecotrin Low Dose] 81 mg PO DAILY 06/22/18 07/28/24 History Budesonide/Formoterol Fumarate 2 puff INHALATION RT-BID 06/22/18 07/28/24 History [Symbicort 160-4.5 Mcg Inhaler] Ipratropium/Albuterol Sulfate 1 puff INHALATION RT-QID 06/22/18 07/28/24 History [Combivent Respimat Inhaler] Metoprolol Tartrate [Lopressor] 25 mg PO BID 06/22/18 07/28/24 History Clopidogrel Bisulfate [Plavix] 75 mg PO DAILY 07/01/18 07/28/24 History Albuterol Inhaler [Ventolin Hfa 2 puff INHALATION RT-TID PRN 12/07/19 07/28/24 History Inhaler] Albuterol Nebulized [Ventolin 2.5 mg INHALATION RT-QID 12/07/19 07/28/24 History Nebulized] Loratadine [Claritin] 10 mg PO DAILY 12/07/19 07/28/24 History Simvastatin [Zocor] 40 mg PO HS 12/07/19 07/28/24 History Tiotropium 18 Mcg/Puff [Spiriva] 2 puff INHALATION RT-DAILY 12/07/19 07/28/24 History Cholecalciferol [Vitamin D3 (25 25 mcg PO BID 03/17/24 07/28/24 History Mcg = 1000 Iu)] Ferrous Sulfate [Iron (65 MG 325 mg PO W/LUNCH 04/06/24 07/28/24 History Elemental)] Folic Acid 1 mg PO DAILY 04/06/24 07/28/24 History Vitamin B-12 50mcg 50 mcg PO DAILY 04/06/24 07/28/24 History Furosemide [Lasix] 20 mg PO DAILY 04/16/24 07/28/24 History Azithromycin [Zithromax] 500 mg PO MOWEFR 06/09/24 07/28/24 History Gabapentin [Neurontin] 200 mg PO TID #90 cap 06/11/24 07/28/24 Rx Montelukast [Singulair] 10 mg PO HS #30 tab 06/16/24 07/28/24 Rx Pantoprazole [Protonix] 40 mg PO AC-BRKFST #30 tab 06/16/24 07/28/24 Rx Spironolactone [Aldactone] 25 mg PO DAILY #90 tab 06/24/24 07/28/24 Rx predniSONE See Taper PO DAILY #18 tab 07/19/24 07/28/24 Rx HYDROcodone/APAP 5-325MG [[place] 1 tab PO TID PRN 07/28/24 07/28/24 History 5-325] Meloxicam [Mobic] 7.5 mg PO DAILY 07/28/24 07/28/24 History Ondansetron Odt [Zofran ODT] 4 mg PO Q8HR PRN 07/28/24 07/28/24 History Losartan [Cozaar] 12.5 mg PO DAILY #30 tab 08/02/24 Rx predniSONE See Taper PO DAILY #30 tab 08/02/24 Rx Allergies Allergy/AdvReac Type Severity Reaction Status Date / Time fluticasone AdvReac Nausea Verified 08/03/24 00:25 [From Wixela Inhub] levofloxacin [From Levaquin] AdvReac TENDON PAIN Verified 08/03/24 00:25 salmeterol AdvReac Nausea Verified 08/03/24 00:25 [From Wixela Inhub] Physical Exam Vitals: Vital Signs Temp Pulse Resp BP Pulse Ox 08/03/24 03:35 101 H 25 H 79/58 97 08/03/24 02:38 98.4 F 08/03/24 02:07 109 H 25 H 88/71 98 08/03/24 01:28 111 H 24 74/44 100 08/03/24 01:12 93 24 08/03/24 01:01 117 H 24 80/58 08/03/24 00:50 128 H 22 63/40 08/03/24 00:48 112 H 08/03/24 00:42 112 H 08/03/24 00:40 104 H 22 68/45 08/03/24 00:26 20 08/03/24 00:19 97.5 F L 100 20 97/78 90 L Intake and Output 08/02/24 08/02/24 08/03/24 14:59 22:59 06:59 Other: Weight 89.811 kg Results CBC & Chem 7: 08/03/24 01:32 08/03/24 00:55 Labs: Abnormal Lab Results - Last 24 Hours (Table) 08/03/24 08/03/24 08/03/24 Range/Units 00:55 00:55 00:55 WBC (4.50-10.00) 10*3/uL RBC (4.40-5.60) 10*6/uL Hgb (13.0-17.0) g/dL Hct (39.6-50.0) % MPV (9.5-12.2) fL Immature Gran # (0.00-0.04) 10*3/uL Neutrophils # (Manual) (1.3-7.7) k/uL Metamyelocytes # (Man) (0) k/uL Sodium 128 L (137-145) mmol/L Chloride 81 L (98-107) mmol/L Carbon Dioxide 33 H (22-30) mmol/L BUN 43 H (9-20) mg/dL Creatinine 1.49 H (0.66-1.25) mg/dL Glucose 167 H (74-99) mg/dL Plasma Lactic Acid Sandor 8.6 H* (0.7-2.0) mmol/L Creatine Kinase (55-170) U/L Troponin I 0.157 H* (0.000-0.034) ng/mL Total Protein 6.0 L (6.3-8.2) g/dL 08/03/24 08/03/24 Range/Units 00:55 01:32 WBC 22.82 H (4.50-10.00) 10*3/uL RBC 4.07 L (4.40-5.60) 10*6/uL Hgb 11.9 L (13.0-17.0) g/dL Hct 34.0 L (39.6-50.0) % MPV 9.3 L (9.5-12.2) fL Immature Gran # 1.37 H (0.00-0.04) 10*3/uL Neutrophils # (Manual) 20.53 H (1.3-7.7) k/uL Metamyelocytes # (Man) 0.23 H (0) k/uL Sodium (137-145) mmol/L Chloride (98-107) mmol/L Carbon Dioxide (22-30) mmol/L BUN (9-20) mg/dL Creatinine (0.66-1.25) mg/dL Glucose (74-99) mg/dL Plasma Lactic Acid Sandor (0.7-2.0) mmol/L Creatine Kinase 39 L (55-170) U/L Troponin I (0.000-0.034) ng/mL Total Protein (6.3-8.2) g/dL
[2024-08-03] MEDS: NOREPINEPHRINE 4 MG in SODIUM CHLORIDE 0.9% 250 ML IV SCH (06:37)
[2024-08-03] MEDS: VANCOMYCIN 1,500 MG in SODIUM CHLORIDE 0.9% 500 ML 500 ML IVPB SCH (06:47)
[2024-08-03 06:51] LABS: African American GFR (CKD) 50 (>60 ml/min/1.73 sqM); Anion Gap 8 mmol/L; Blood Urea Nitrogen 43 mg/dL (9-20); Calcium 8.3 mg/dL (8.4-10.2); Carbon Dioxide 33 mmol/L (22-30); Chloride 84 mmol/L (98-107); Glucose 181 mg/dL (74-99); Non-African American GFR(CKD) 43 (>60 ml/min/1.73 sqM); Potassium 3.2 mmol/L (3.5-5.1); Sodium 125 mmol/L (137-145)
--- NOTE | 2024-08-03 07:00 | P.CNPUL ---
History of Present Illness Consult date: 08/03/24 Requesting physician: Kerwin Washington Reason for consult: other (ICU management) Chief complaint: Lower extremity weakness History of present illness: Patient is a 79-year-old male with past medical history significant for COPD, hypertension, hyperlipidemia, coronary artery disease with previous PCI/stenting, PAD, among other things. Patient was just recently discharged from the hospital yesterday. Chief complaint on the previous admission was bilateral foot pain and numbness. He has chronic bilateral lower extremity pitting edema. Also, noted to have peripheral arterial disease. Did have a CT of angio abdominal aorta with runoff May, showing extensive atherosclerotic disease involving the abdominal aorta and lower extremity vasculature with varying degrees of chronic narrowing, most pronounced in the right external iliac and right superficial femoral arteries with approximately 70% stenosis. We were seeing this patient for this patient for an exacerbation of his COPD. He was still testing positive for influenza A, originally diagnosed back on June,. He did complete a course of Tamiflu. Patient states when he was discharged home he was feeling well. He ate some food, and went to bed. When he tried to get up in the morning he had severe lower extremity weakness. Continues to have bilateral foot numbness. Denies any lower extremity pain. He did have to assist himself to the floor. Denies hitting his head or losing consciousness. He states that his COPD is fairly well-controlled at this time. He is known to have very severe COPD with an FEV1 29% of predicted. He is oxygen dependent at baseline. Denies any changes in his chronic shortness of breath. Denies any change in his chronic cough or purulent sputum production. Denies any fever/chills, chest pain, hemoptysis. Denies any nausea, vomiting, diarrhea. Workup in the emergency department including a chest x-ray which showing similar left lower basilar opacity, concerning for basilar atelectasis and/or pneumonia. CBC: WBC count 23, hemoglobin 11.9, platelets 355. Patient recently on high-dose IV steroids. CMP: Sodium 128, potassium 3.7, chloride 81, serum bicarb 33, BUN 43, creatinine up to 1.49, glucose 167. Troponin 0.157, NT proBNP 2430. Urinalysis unremarkable for infection. Lactic acid was elevated at 8.6 on arrival. Blood pressure was hypotensive on arrival, he is received a total of 1.5 L crystalloid fluid so far. ER physician did establish right femoral central line access. Currently being evaluated in the emergency department, trauma bay 1. He is awake and alert, not in any distress. Extensive bilateral lower extremity pitting edema noted. Recent echocardiogram showing a mild to moderate LV systolic dysfunction with an ejection fraction of 40 to 45% with mild to moderate pulm hypertension. Currently on 5 L/min nasal cannula. Blood pressure remains hypotensive, currently 63/52 mmHg. I recommended starting the patient on norepinephrine for blood pressure support. Previously tachycardic. Patient also hypothermic with a temperature of 93.6 F, and has a external warming blanket count. He does meet SIRS/sepsis criteria, and was started on empiric antibiotics in the form of cefepime and vancomycin in the ED. Currently awaiting bed in the intensive care unit. Review of Systems CONSTITUTIONAL: Denies any recent significant weight loss or weight gain. EYES: Denies change in vision. EARS, NOSE, MOUTH, THROAT: Denies headaches, denies sore throat. CARDIOVASCULAR: Denies chest pain, palpitations or syncopal episodes. RESPIRATORY: Denies any change in his chronic shortness of breath, chronic cough, apparent sputum production, or hemoptysis. GASTROINTESTINAL: Denies change in appetite, denies abdominal pain GENITOURINARY: Denies hematuria, denies infections. MUSKULOSKELETAL: Denies pain, denies swelling. Endorses bilateral lower extremity weakness and foot numbness. INTEGUMENTARY: Denies rash, denies eczema. NEUROLOGICAL: Denies recent memory loss, no recent seizure activity. PSYCHIATRIC: Denies anxiety, denies depression. HEMATOLOGIC/LYMPHATIC: Denies anemia, denies enlarged lymph nodes. Past Medical History Past Medical History: Coronary Artery Disease (CAD), COPD, GERD/Reflux, Hyperlipidemia, Hypertension, Myocardial Infarction ([place]), Pulmonary Embolus (PE), Renal Disease Additional Past Medical History / Comment(s): home O2 (3L [place]), bilateral PEs in 2003, history ETOH abuse - pt states he has never had withdrawal symptoms, chronic low back pain/sciatica/spurs/disc disease - much improved after back injections, past urinary retention, diverticulitis/benign colon polyps removed, nephrolithiasis - passed stones on his own, shingelles 16 years ago - R shoulder. Last Myocardial Infarction Date:: 2010 History of Any Multi-Drug Resistant Organisms: None Reported Past Surgical History: Heart Catheterization With Stent Additional Past Surgical History / Comment(s): back injections for pain, piece of metal removed from right eye, EGD, colonoscopy Past Anesthesia/Blood Transfusion Reactions: No Reported Reaction Additional Past Anesthesia/Blood Transfusion Reaction / Comment(s): claustrophobia Date of Last Stent Placement:: 2010 Past Psychological History: Anxiety, Depression, PTSD Smoking Status: Former smoker Past Alcohol Use History: None Reported Past Drug Use History: None Reported - Past Family History Mother Family Medical History: Cancer Additional Family Medical History / Comment(s): from breast cancer at age 53. Father Family Medical History: Coronary Artery Disease (CAD), Myocardial Infarction ([place]) Additional Family Medical History / Comment(s): 4 MIs/CABG. at age 72. Medications and Allergies Home Medications Medication Instructions Recorded Confirmed Type Aspirin EC [Ecotrin Low Dose] 81 mg PO DAILY 06/22/18 07/28/24 History Budesonide/Formoterol Fumarate 2 puff INHALATION RT-BID 06/22/18 07/28/24 History [Symbicort 160-4.5 Mcg Inhaler] Ipratropium/Albuterol Sulfate 1 puff INHALATION RT-QID 06/22/18 07/28/24 History [Combivent Respimat Inhaler] Metoprolol Tartrate [Lopressor] 25 mg PO BID 06/22/18 07/28/24 History Clopidogrel Bisulfate [Plavix] 75 mg PO DAILY 07/01/18 07/28/24 History Albuterol Inhaler [Ventolin Hfa 2 puff INHALATION RT-TID PRN 12/07/19 07/28/24 History Inhaler] Albuterol Nebulized [Ventolin 2.5 mg INHALATION RT-QID 12/07/19 07/28/24 History Nebulized] Loratadine [Claritin] 10 mg PO DAILY 12/07/19 07/28/24 History Simvastatin [Zocor] 40 mg PO HS 12/07/19 07/28/24 History Tiotropium 18 Mcg/Puff [Spiriva] 2 puff INHALATION RT-DAILY 12/07/19 07/28/24 History Cholecalciferol [Vitamin D3 (25 25 mcg PO BID 03/17/24 07/28/24 History Mcg = 1000 Iu)] Ferrous Sulfate [Iron (65 MG 325 mg PO W/LUNCH 04/06/24 07/28/24 History Elemental)] Folic Acid 1 mg PO DAILY 04/06/24 07/28/24 History Vitamin B-12 50mcg 50 mcg PO DAILY 04/06/24 07/28/24 History Furosemide [Lasix] 20 mg PO DAILY 04/16/24 07/28/24 History Azithromycin [Zithromax] 500 mg PO MOWEFR 06/09/24 07/28/24 History Gabapentin [Neurontin] 200 mg PO TID #90 cap 06/11/24 07/28/24 Rx Montelukast [Singulair] 10 mg PO HS #30 tab 06/16/24 07/28/24 Rx Pantoprazole [Protonix] 40 mg PO AC-BRKFST #30 tab 06/16/24 07/28/24 Rx Spironolactone [Aldactone] 25 mg PO DAILY #90 tab 06/24/24 07/28/24 Rx predniSONE See Taper PO DAILY #18 tab 07/19/24 07/28/24 Rx HYDROcodone/APAP 5-325MG [[place] 1 tab PO TID PRN 07/28/24 07/28/24 History 5-325] Meloxicam [Mobic] 7.5 mg PO DAILY 07/28/24 07/28/24 History Ondansetron Odt [Zofran ODT] 4 mg PO Q8HR PRN 07/28/24 07/28/24 History Losartan [Cozaar] 12.5 mg PO DAILY #30 tab 08/02/24 Rx predniSONE See Taper PO DAILY #30 tab 08/02/24 Rx Allergies Allergy/AdvReac Type Severity Reaction Status Date / Time fluticasone AdvReac Nausea Verified 08/03/24 00:25 [From Wixela Inhub] levofloxacin [From Levaquin] AdvReac TENDON PAIN Verified 08/03/24 00:25 salmeterol AdvReac Nausea Verified 08/03/24 00:25 [From Wixela Inhub] Physical Exam Vitals: Vital Signs Temp Pulse Resp BP Pulse Ox 08/03/24 06:23 94.3 F L 96 63/52 99 08/03/24 06:16 93.6 F L 97 24 72/37 08/03/24 05:13 94.6 F L 99 25 H 87/49 95 08/03/24 03:35 101 H 25 H 79/58 97 08/03/24 02:38 98.4 F 08/03/24 02:07 109 H 25 H 88/71 98 08/03/24 01:28 111 H 24 74/44 100 08/03/24 01:12 93 24 08/03/24 01:01 117 H 24 80/58 08/03/24 00:50 128 H 22 63/40 08/03/24 00:48 112 H 08/03/24 00:42 112 H 08/03/24 00:40 104 H 22 68/45 08/03/24 00:26 20 08/03/24 00:19 97.5 F L 100 20 97/78 90 L Intake and Output 08/02/24 08/02/24 08/03/24 14:59 22:59 06:59 Other: Weight 89.811 kg GENERAL EXAM: Alert, 79-year-old male, on 5 L/min nasal cannula, laying on his left side, comfortable in no apparent distress. HEAD: Normocephalic and atraumatic EYES: Normal reaction of pupils, equal size. NOSE: Clear with pink turbinates. THROAT: No erythema or exudates. NECK: No masses, no JVD. CHEST: No chest wall deformity. LUNGS: Equal air entry with expiratory crackles at the left lung base. No wheezing, rhonchi, focal dullness. No conversational dyspnea or accessory muscle use while at rest. CVS: S1 and S2 normal with no audible murmur, regular rhythm. No extra heart sounds ABDOMEN: No hepatosplenomegaly, active bowel sounds, no guarding or rigidity. SPINE: No scoliosis or deformity SKIN: No rashes CENTRAL NERVOUS SYSTEM: No focal deficits, tone is normal in all 4 extremities. EXTREMITIES: There is bilateral lower extremity 2-3+ pitting edema. No clubbing, or cyanosis. Peripheral pulses are diminished in the bilateral lower extremities. Extremities warm. Adequate cap refill. Results - Laboratory Findings CBC and BMP: 08/03/24 01:32 08/03/24 00:55 PT/INR, D-dimer PT 10.4 sec (10.0-12.5) 08/03/24 03:39 INR 0.9 (<1.2) 08/03/24 03:39 Abnormal lab findings: Abnormal Labs 08/03/24 08/03/24 08/03/24 00:55 00:55 00:55 WBC RBC Hgb Hct MPV Immature Gran # Neutrophils # (Manual) Metamyelocytes # (Man) APTT Sodium 128 L Chloride 81 L Carbon Dioxide 33 H BUN 43 H Creatinine 1.49 H Glucose 167 H Plasma Lactic Acid Sandor 8.6 H* Creatine Kinase Troponin I 0.157 H* Total Protein 6.0 L 08/03/24 08/03/24 08/03/24 00:55 01:32 03:39 WBC 22.82 H RBC 4.07 L Hgb 11.9 L Hct 34.0 L MPV 9.3 L Immature Gran # 1.37 H Neutrophils # (Manual) 20.53 H Metamyelocytes # (Man) 0.23 H APTT 18.5 L Sodium Chloride Carbon Dioxide BUN Creatinine Glucose Plasma Lactic Acid Sandor Creatine Kinase 39 L Troponin I Total Protein - Diagnostic Findings Chest x-ray: image reviewed Assessment and Plan Assessment: Acute on chronic hypoxic respiratory failure, currently on 5 L/min nasal cannula Chronic dyspnea, secondary to COPD Severe stable COPD with an FEV1 of 29% predicted, maintained on a combination of Bre[place]/Spiriva on outpatient basis in addition to albuterol updrafts on an in sulin basis Hypotension and shock, refractory to fluid resuscitation, going to be started on vasopressor support in the form of norepinephrine Lactic acidosis Hypothermia, external warming blanket in place SIRS/sepsis criteria met Acute kidney injury, possibly secondary to hypotension and ATN Leukocytosis, possibly reactive to steroids Influenza A infection, originally diagnosed on 07/22/2024, treated with a course of Tamiflu Hypochloremic hyponatremia Abnormal troponin, nonspecific Previous history of sputum culture positive for Stenotrophomonas maltophilia and 05/19/2024 Chronic hypoxemic respiratory failure, secondary to above, normally oxygen dependent on 2-3 L/min nasal cannula mostly at bedtime Normocytic, normochromic anemia, hemoglobin slightly lower than baseline, no obvious acute blood loss Former tobacco dependence Obesity, with a BMI of 34 kg/m History of hyperlipidemia History of hypertension History of CAD, with previous stenting of the RCA, 2010 History of peripheral arterial disease and intermittent claudication Chronic bilateral lower extremity edema Plan: Patient's medications, labs, chest x-ray reviewed Persistent left basilar opacity concerning for atelectasis versus pneumonia Meet SIRS/sepsis criteria, exact source is not entirely clear, started on empiric antibiotics in the form of cefepime and vancomycin while in the ED An additional 1 L fluid bolus ordered May use norepinephrine for blood pressure support to maintain a MAP of 65 mmHg or greater Central line access established in the ED Blood culture pending Check procalcitonin Trend lactic acid DVT prophylaxis: Subcutaneous heparin GI prophylaxis: Protonix Patient will be admitted to the intensive care unit once bed available I have personally seen and examined the patient, performed the documentation and the assessment and plan as written. Number of minutes spent on the visit:20 Time with Patient: Greater than 30
[2024-08-03 07:25] LABS: HCT 27.3 % (39.6-50.0); MCH 28.9 pg (27.0-32.0); MCHC 34.8 g/dL (32.0-37.0); Mean Platelet Volume 10.1 fL (9.5-12.2); Platelet Count 295 10*3/uL (140-440); RBC 3.29 10*6/uL (4.40-5.60); RDW 14.3 % (11.5-14.5); WBC 17.55 10*3/uL (4.50-10.00)
[2024-08-03] MEDS: ALBUTEROL NEBULIZED 2.5 MG/3 ML INHALATION SCH (07:25)
[2024-08-03] MEDS: SYMBICORT 160-4.5 MCG INHALER INHALATION SCH (07:25)
[2024-08-03] MEDS: IPRATROPIUM 0.5 MG/2.5 ML NEBU INHALATION SCH (07:26)
[2024-08-03 07:29] LABS: HGB 9.5 g/dL (13.0-17.0)
[2024-08-03] MEDS ORDERED: CEFEPIME 2 GM in SODIUM CHLORIDE 0.9% 50 ML IVPB SCH (08:00)
--- NOTE | 2024-08-03 08:30 | CT ---
EXAMINATION TYPE: CT brain w con DATE OF EXAM: 08/03/2024 8:25 AM COMPARISON: None. CLINICAL INDICATION: Male, 79 years old with history of altered mental status, AMS TECHNIQUE: CT of the brain is performed utilizing 3 mm thick sections through the posterior fossa and 3 mm thick sections through the remaining calvarium. Study is performed within 24 hours of arrival to the hospital. Contrast used:80 mL of Isovue 300 with IV Contrast, (none if empty) CT DLP: 3719.7 mGycm, Automated exposure control for dose reduction was used. FINDINGS: No abnormal hyperdensity is present to suggest an acute intracranial hemorrhage. No mass lesion is evident. No acute infarcts are evident. Periventricular white matter hypodensity is present, likely on the bas is of chronic white matter ischemic changes Ventricles and sulci are appropriate for the patient age. Paranasal sinuses and mastoid air cells within the [id number] are clear. IMPRESSION: 1. No acute intracranial process. Follow up MRI can be performed as clinically indicated. 2. Chronic appearing periventricular white matter ischemic changes [facility], , 08/03/2024 8:27 AM
--- NOTE | 2024-08-03 08:34 | CT ---
EXAMINATION TYPE: CT abdomen pelvis wo/w con DATE OF EXAM: 08/03/2024 8:25 AM COMPARISON: 05/29/2024 CLINICAL INDICATION: Male, 79 years old with history of abdominal pain, abd pain TECHNIQUE: Axial images were obtained from above the diaphragm to the pubic rami in the axial plane a t 5 mm thick sections. Reconstructed images are reviewed on the computer in the coronal plane. CONTRAST: 80 mL of Isovue 300. Study performed without Oral Contrast DLP: 2409.8 mGycm, Automated exposure control for dose reduction was used. FINDINGS: Limited CT sections are obtained the lung bases. The lung bases are clear. CT ABDOMEN: Liver: Normal Spleen: Calcified granuloma scattered within spleen Pancreas: Normal Adrenal glands: The adrenal glands are normal. Gallbladder: Normal Kidneys: No masses are evident. No hydronephrosis is present. No cysts are present. Delayed images were obtained through the kidneys, which remain unremarkable. Aorta: Vascular calcification is within the aorta. Inferior vena cava: Normal. CT PELVIS: Small periumbilical fat-containing hernia is present. No loops of bowel are involved Loops of bowel within the abdomen and pelvis are normal. Diverticulosis without acute diverticulitis within the sigmoid colon There are loops of bowel which are incompletely distended or lack oral co ntrast limiting their evaluation. Appendix: Normal as visualized. Urinary bladder: Decompressed with Villegas catheter Genitourinary structures: Prostate is normal Osseous structures: No suspicious lytic or sclerotic lesions. IMPRESSION: 1. Diverticulosis without acute diverticulitis. [facility], , 08/03/2024 8:32 AM
[2024-08-03] MEDS ORDERED: GABAPENTIN 100 MG CAP PO SCH (09:00)
[2024-08-03] MEDS ORDERED: METOPROLOL TARTRATE 25 MG TAB PO SCH (09:00)
[2024-08-03] MEDS: CEFEPIME 2 GM in SODIUM CHLORIDE 0.9% 100 ML IVPB SCH ×2 (09:01→18:15)
[2024-08-03] MEDS: PANTOPRAZOLE 40 MG TABLET PO SCH (09:02)
[2024-08-03] MEDS: ASPIRIN 81 MG PO SCH (09:02)
[2024-08-03] MEDS: FOLIC ACID 1 MG TAB PO SCH (09:02)
[2024-08-03] MEDS: HEPARIN SODIUM,PORCINE 5,000 UNIT/ML 1 ML VIAL SQ SCH (09:02)
[2024-08-03] MEDS: CLOPIDOGREL 75 MG TAB PO SCH (09:02)
[2024-08-03] MEDS: FERROUS SULFATE 325 MG TAB PO SCH (13:20)
[2024-08-03 14:27] VITALS: TEMP 97.7
[2024-08-03] MEDS: ATORVASTATIN 40 MG TAB PO SCH (21:08)
[2024-08-04 04:44] VITALS: RESP 30
--- NOTE | 2024-08-04 05:04 | P.DS ---
Providers Date of admission: 08/03/24 05:31 Expected date of discharge: 08/04/24 Attending physician: Dave Andre MD Consults: 08/03/24 05:10 Consult Physician Routine Consulting Provider: Manoj Alberto Consult Reason/Comments: cc Do you want consulting provider notified?: Already Contacted Primary care physician: [facility] Course: This patient has elected to leave against medical advice. In my opinion, the patient has capacity to leave AMA. The patient is clinically sober, free from distracting injury, appears to have intact insight and judgment and reason, and in my opinion has capacity to make decisions. I explained to the patient that his symptoms may represent and the patient verbalized understanding of my concerns. I had a discussion with the patient about their workup and results. The patient was explained about his diagnosis of Septic shock and acute hypoxic respiratory failure and that he needed to be on Norepinephrine. Patient also had a central line. Patient kept saying that "everyone is lying, nothing is wrong with him, and that he just wants to go home". Patient was verbally abusive to staff, name calling. Patient verbalizes disbelief of need for medical treatment, states staff are making up reasons to keep him in the hospital and patient called the police department. special skills officer present during this interaction with the usha peterson. Upon trying to convince the patient to get treatment , patient ripped off the leads and said " if I agree to any treatment I am not going wake up ". I explained the risks of leaving without further workup or treatment, which included reasonably foreseeable complications such as , serious injury, permanent disability. The patient is refusing any further care, and is leaving against medical advice. I am unable to convince the patient to stay. Patient was on Norepinephrine that had been discontinued for 15 minutes. Central line was pulled out and pressure applied at the site. I have asked the patient to return as soon as possible to complete their evaluation, and also explained that they were welcome to return to the ER for further evaluation whenever they choose. I have asked the patient to follow up with their primary doctor as soon as possible. I have answered all their questions. Patient did not sign AMA paperwork. Plan - Discharge Summary New Discharge Prescriptions: No Action Aspirin EC [Ecotrin Low Dose] 81 mg PO DAILY Budesonide/Formoterol Fumarate [Symbicort 160-4.5 Mcg Inhaler] 2 puff INHALATION RT-BID Ipratropium/Albuterol Sulfate [Combivent Respimat Inhaler] 1 puff INHALATION RT-QID Metoprolol Tartrate [Lopressor] 25 mg PO BID Clopidogrel Bisulfate [Plavix] 75 mg PO DAILY Tiotropium 18 Mcg/Puff [Spiriva] 2 puff INHALATION RT-DAILY Simvastatin [Zocor] 40 mg PO HS Albuterol Nebulized [Ventolin Nebulized] 2.5 mg INHALATION RT-QID Loratadine [Claritin] 10 mg PO DAILY Albuterol Inhaler [Ventolin Hfa Inhaler] 2 puff INHALATION RT-TID PRN PRN Reason: Shortness Of Breath Cholecalciferol [Vitamin D3 (25 Mcg = 1000 Iu)] 25 mcg PO BID Furosemide [Lasix] 40 mg PO DAILY Ondansetron Odt [Zofran ODT] 4 mg PO Q8HR PRN PRN Reason: Nausea And Vomiting Losartan [Cozaar] 12.5 mg PO DAILY #30 tab predniSONE See Taper PO DIRECTED Spironolactone [Aldactone] 25 mg PO DAILY #90 tab predniSONE See Taper PO DAILY #18 tab Meloxicam [Mobic] 7.5 mg PO DAILY HYDROcodone/APAP 5-325MG [[place] 5-325] 1 tab PO TID PRN PRN Reason: Pain Discharge Medication List Aspirin EC [Ecotrin Low Dose] 81 mg PO DAILY 06/22/18 [History] Budesonide/Formoterol Fumarate [Symbicort 160-4.5 Mcg Inhaler] 2 puff INHALATION RT-BID 06/22/18 [History] Ipratropium/Albuterol Sulfate [Combivent Respimat Inhaler] 1 puff INHALATION RT- QID 06/22/18 [History] Metoprolol Tartrate [Lopressor] 25 mg PO BID 06/22/18 [History] Clopidogrel Bisulfate [Plavix] 75 mg PO DAILY 07/01/18 [History] Albuterol Inhaler [Ventolin Hfa Inhaler] 2 puff INHALATION RT-TID PRN 12/07/19 [History] Albuterol Nebulized [Ventolin Nebulized] 2.5 mg INHALATION RT-QID 12/07/19 [History] Loratadine [Claritin] 10 mg PO DAILY 12/07/19 [History] Simvastatin [Zocor] 40 mg PO HS 12/07/19 [History] Tiotropium 18 Mcg/Puff [Spiriva] 2 puff INHALATION RT-DAILY 12/07/19 [History] Cholecalciferol [Vitamin D3 (25 Mcg = 1000 Iu)] 25 mcg PO BID 03/17/24 [History] Furosemide [Lasix] 40 mg PO DAILY 04/16/24 [History] Spironolactone [Aldactone] 25 mg PO DAILY #90 tab 06/24/24 [Rx] predniSONE See Taper PO DAILY #18 tab 07/19/24 [Rx] HYDROcodone/APAP 5-325MG [[place] 5-325] 1 tab PO TID PRN 07/28/24 [History] Meloxicam [Mobic] 7.5 mg PO DAILY 07/28/24 [History] Ondansetron Odt [Zofran ODT] 4 mg PO Q8HR PRN 07/28/24 [History] Losartan [Cozaar] 12.5 mg PO DAILY #30 tab 08/02/24 [Rx] predniSONE See Taper PO DIRECTED 08/03/24 [History] Follow up Appointment(s)/Referral(s): Enrrique Reese DO [Primary Care Provider] - 1-2 days
[2024-08-04 05:57] VITALS: BP 99/65; PULSE 125
== END 2024-08-04 07:30 | disposition left against medical advice (07) | DRG 871 ==
LOC: EC 00:13 → 2SICU 05:31
PROVIDERS: ADMIT Internal Medicine; ATTEND Internal Medicine
PROC: 3E033XZ Introduction of Vasopressor into Peripheral Vein, Percutaneous Approach (ICD-10-PCS; principal; 2024-08-03)
PROC: 06HY33Z Insertion of Infusion Device into Lower Vein, Percutaneous Approach (ICD-10-PCS; principal; 2024-08-03)
DX: A41.9 Sepsis, unspecified organism (principal); I21.A1 Myocardial infarction type 2; J96.21 Acute and chronic respiratory failure with hypoxia; N17.0 Acute kidney failure with tubular necrosis; R65.21 Severe sepsis with septic shock; J96.22 Acute and chronic respiratory failure with hypercapnia; I27.20 Pulmonary hypertension, unspecified; E11.51 Type 2 diabetes mellitus with diabetic peripheral angiopathy without gangrene; I11.0 Hypertensive heart disease with heart failure; J44.9 Chronic obstructive pulmonary disease, unspecified; E66.9 Obesity, unspecified; F32.A Depression, unspecified; D64.9 Anemia, unspecified; I50.32 Chronic diastolic (congestive) heart failure; E87.20 Acidosis, unspecified; E87.1 Hypo-osmolality and hyponatremia; I48.91 Unspecified atrial fibrillation; R68.0 Hypothermia, not associated with low environmental temperature; Z99.81 Dependence on supplemental oxygen; Z68.34 Body mass index [BMI] 34.0-34.9, adult; E78.5 Hyperlipidemia, unspecified; E87.8 Other disorders of electrolyte and fluid balance, not elsewhere classified; F40.240 Claustrophobia; F43.10 Post-traumatic stress disorder, unspecified; M54.30 Sciatica, unspecified side; F41.9 Anxiety disorder, unspecified; K21.9 Gastro-esophageal reflux disease without esophagitis; G89.29 Other chronic pain; N28.9 Disorder of kidney and ureter, unspecified; I25.10 Atherosclerotic heart disease of native coronary artery without angina pectoris; I25.2 Old myocardial infarction; Z87.891 Personal history of nicotine dependence; Z53.09 Procedure and treatment not carried out because of other contraindication; Z53.29 Procedure and treatment not carried out because of patient's decision for other reasons; Z86.19 Personal history of other infectious and parasitic diseases; Z79.02 Long term (current) use of antithrombotics/antiplatelets; Z79.1 Long term (current) use of non-steroidal anti-inflammatories (NSAID); Z79.51 Long term (current) use of inhaled steroids; Z79.82 Long term (current) use of aspirin; Z79.84 Long term (current) use of oral hypoglycemic drugs; Z79.899 Other long term (current) drug therapy; Z86.711 Personal history of pulmonary embolism; Z86.0100 Personal history of colon polyps, unspecified; Z87.442 Personal history of urinary calculi; Z95.5 Presence of coronary angioplasty implant and graft; Z88.1 Allergy status to other antibiotic agents; Z88.8 Allergy status to other drugs, medicaments and biological substances
CPT/HCPCS: 36415; 36556; 51702; 70460; 71045; 74178; 80048; 80053; 81003; 82550; 83605; 83735; 83880; 84145; 84484; 85025; 85027; 85610; 85730; 87040; 87070; 93005; 94640; 94642; 96361; 96365; 96366; 96367; 96368; 96372; 96375; 99291

== ENCOUNTER 2024-08-19 17:03 | Inpatient (IN) | payer OTHER, MEDICARE ==
--- NOTE | 2024-08-19 17:53 | ED ---
General Adult HPI - General Chief complaint: Weakness Stated complaint: Fever,L hip pain Time Seen by Provider: 08/19/24 17:23 Source: patient Mode of arrival: EMS Limitations: no limitations - History of Present Illness Initial comments: Dictation was produced using [employer] dictation software. please excuse any grammatical, word or spelling errors. Chief Complaint: 79-year-old male presents emergency department with with fever chills abdominal pain cough and left hip pain History of Present Illness: Patient 79-year-old male who called EMS come to the ER. Patient states that he is here today for cough, abdominal pain and left hip pain. States that he is suffering from a sore to his left hip. Patient is debilitated. States that he had total abdominal pain earlier that resolved. States that he has had for the last several days cough and shortness of breath. Denies any fevers but does complain of some subjective chills. The ROS documented in this emergency department record has been reviewed and confirmed by me. Those systems with pertinent positive or negative responses have been documented in the HPI. All other systems are other negative and/or noncontributory. - Related Data Home Medications Medication Instructions Recorded Confirmed Aspirin EC [Ecotrin Low Dose] 81 mg PO DAILY 06/22/18 08/03/24 Budesonide/Formoterol Fumarate 2 puff INHALATION RT-BID 06/22/18 08/03/24 [Symbicort 160-4.5 Mcg Inhaler] Ipratropium/Albuterol Sulfate 1 puff INHALATION RT-QID 06/22/18 08/03/24 [Combivent Respimat Inhaler] Metoprolol Tartrate [Lopressor] 25 mg PO BID 06/22/18 08/03/24 Clopidogrel Bisulfate [Plavix] 75 mg PO DAILY 07/01/18 08/03/24 Albuterol Inhaler [Ventolin Hfa 2 puff INHALATION RT-TID PRN 12/07/19 08/03/24 Inhaler] Albuterol Nebulized [Ventolin 2.5 mg INHALATION RT-QID 12/07/19 08/03/24 Nebulized] Loratadine [Claritin] 10 mg PO DAILY 12/07/19 08/03/24 Simvastatin [Zocor] 40 mg PO HS 12/07/19 08/03/24 Tiotropium 18 Mcg/Puff [Spiriva] 2 puff INHALATION RT-DAILY 12/07/19 08/03/24 Cholecalciferol [Vitamin D3 (25 25 mcg PO BID 03/17/24 08/03/24 Mcg = 1000 Iu)] Furosemide [Lasix] 40 mg PO DAILY 04/16/24 08/03/24 HYDROcodone/APAP 5-325MG [[place] 1 tab PO TID PRN 07/28/24 08/03/24 5-325] Meloxicam [Mobic] 7.5 mg PO DAILY 07/28/24 08/03/24 Ondansetron Odt [Zofran ODT] 4 mg PO Q8HR PRN 07/28/24 08/03/24 predniSONE See Taper PO DIRECTED 08/03/24 08/03/24 Previous Rx's Medication Instructions Recorded Spironolactone [Aldactone] 25 mg PO DAILY #90 tab 06/24/24 predniSONE See Taper PO DAILY #18 tab 07/19/24 Losartan [Cozaar] 12.5 mg PO DAILY #30 tab 08/02/24 Ferrous Sulfate [Iron (65 MG 325 mg PO W/LUNCH 14 Days #14 tab 08/04/24 Elemental)] Folic Acid 1 mg PO DAILY 14 Days #14 tab 08/04/24 Allergies Allergy/AdvReac Type Severity Reaction Status Date / Time fluticasone AdvReac Nausea Verified 08/03/24 00:25 [From Wix[facility] Inhub] levofloxacin [From Levaquin] AdvReac TENDON PAIN Verified 08/03/24 00:25 salmeterol AdvReac Nausea Verified 08/03/24 00:25 [From Wixela Inhub] Review of Systems ROS Statement: Those systems with pertinent positive or pertinent negative responses have been documented in the HPI. ROS Other: All systems not noted in ROS Statement are negative. Past Medical History Past Medical History: Coronary Artery Disease (CAD), COPD, GERD/Reflux, Hyperlipidemia, Hypertension, Myocardial Infarction (MA), Pulmonary Embolus (PE), Renal Disease Additional Past Medical History / Comment(s): home O2 (3L NC HS), bilateral PEs in 2003, history ETOH abuse - pt states he has never had withdrawal symptoms, chronic low back pain/sciatica/spurs/disc disease - much improved after back injections, past urinary retention, diverticulitis/benign colon polyps removed, nephrolithiasis - passed stones on his own, shingelles 16 years ago - R shoulder. Last Myocardial Infarction Date:: 2010 History of Any Multi-Drug Resistant Organisms: None Reported Past Surgical History: Heart Catheterization With Stent Additional Past Surgical History / Comment(s): back injections for pain, piece of metal removed from right eye, EGD, colonoscopy Past Anesthesia/Blood Transfusion Reactions: No Reported Reaction Additional Past Anesthesia/Blood Transfusion Reaction / Comment(s): claustrophobia Date of Last Stent Placement:: 2010 Past Psychological History: Anxiety, Depression, PTSD Smoking Status: Former smoker Past Alcohol Use History: None Reported Past Drug Use History: None Reported - Past Family History Mother Family Medical History: Cancer Additional Family Medical History / Comment(s): from breast cancer at age 53. Father Family Medical History: Coronary Artery Disease (CAD), Myocardial Infarction (MA) Additional Family Medical History / Comment(s): 4 MIs/CABG. at age 72. General Exam - General Exam Comments Initial Comments: PHYSICAL EXAM: General Impression: Alert and oriented x3, not in acute distress HEENT: Normocephalic atraumatic, extra-ocular movements intact, pupils equal and reactive to light bilaterally, mucous membranes moist. Cardiovascular: Heart regular rate and rhythm Chest: Able to complete full sentences, no retractions, no tachypnea Abdomen: abdomen soft, non-tender, non-distended, no organomegaly Musculoskeletal: Pulses present and equal in all extremities, no peripheral edema Motor: no focal deficits noted Neurological: CN II-XII grossly intact, no focal motor or sensory deficits noted Skin: I multiple sores, there is a decubitus ulcer to the left hip without exposed bone. Slight surrounding erythema no induration or drainage Psych: Normal affect and mood Limitations: no limitations Course Vital Signs 08/19/24 08/19/24 08/19/24 17:09 17:53 18:14 Temperature 97.1 F L Pulse Rate 75 65 86 Respiratory 20 16 22 Rate Blood Pressure 125/75 130/68 148/86 O2 Sat by Pulse 94 L 98 98 Oximetry 08/19/24 19:15 Temperature Pulse Rate 98 Respiratory 20 Rate Blood Pressure 107/58 O2 Sat by Pulse 96 Oximetry EKG Findings - EKG Comments: EKG Findings:: My EKG interpretation: Ventricular rate 102, sinus tachycardia,. 167, QRS 99, QTc 4 6. No IN prolongation, no QTC prolongation, no ST or T-wave changes noted. EKG compared to July 27, 2024 showing no changes. Overall, this EKG is unremarkable Medical Decision Making - Medical Decision Making Was pt. sent in by a medical professional or institution (, PA, ROUNDSMAN, urgent care, hospital, or penitentiary...) When possible be specific @ -No Did you speak to anyone other than the patient for history (EMS, parent, family, police, friend...)? What history was obtained from this source @ -No Did you review nursing and triage notes (agree or disagree)? Why? @ -I reviewed and agree with nursing and triage notes Were old charts reviewed (outside hosp., previous admission, EMS record, old EKG, old radiological studies, urgent care reports/EKG's, penitentiary records)? Report findings @ -No old charts were reviewed Differential Diagnosis (chest pain, altered mental status, abdominal pain women, abdominal pain men, vaginal bleeding, musculoskeletal, weakness, fever, dyspnea, syncope, headache, dizziness, GI bleed, back pain, seizure, CVA, palpatations, mental health)? @ -Differential Weakness: Hypoglycemia, shock, sepsis, hyponatremia, anemia, infection, MA, ETOH, adverse medicine reaction, overdose, stroke, this is not meant to be an all-inclusive list. EKG interpreted by me (3pts min.). @ -See above X-rays interpreted by me (1pt min.). @ -Hip and chest x-ray shows no acute processes CT interpreted by me (1pt min.). @ -None done U/S interpreted by me (1pt. min.). @ -None done What testing was considered but not performed or refused? (CT, X-rays, U/S, labs)? Why? @ -None What meds were considered but not given or refused? Why? @ -None Was smoking cessation discussed for >3mins.? @ -No Were there social determinants of health that impacted care today? How? (Homelessness, low income, unemployed, alcoholism, drug addiction, transportation, low edu. Level, literacy, decrease access to med. care, halfway, rehab)? @ -Lives alone, poor social situation Was there de-escalation of care discussed even if they declined (Discuss DNR or withdrawal of care, Hospice)? DNR status @ -No What co-morbidities impacted this encounter? (DM, HTN, Smoking, COPD, CAD, Cancer, CVA, ARF, Chemo, Hep., AIDS, mental health diagnosis, sleep apnea, morbid obesity)? @ -None Was patient admitted / discharged? Hospital course, mention meds given and route, prescriptions, significant lab abnormalities, going to OR and other per tinent info. @ -79-year-old male presents emergency department multiple complaints including fever, chills body aches, productive cough decubitus ulcer with left hip pain. Chart review was performed patient was recently admitted for sepsis. He left AMA despite requiring vasopressors. States that he was at home having trouble caring for himself. Vital signs are stable upon arrival. Laboratory evaluation obtained. Labs within acceptable limits. Patient at baseline is slightly hyponatremic. Imaging studies are negative. Patient states he lives at home having trouble caring for himself that any social support. Patient will be admitted with consultation to case management associate for grave disability. Did you discuss the management of the patient with other professionals (professionals i.e. , PA, ROUNDSMAN, lab, RT, psych nurse, psychosocial rehabilitation counselor, mirror painter, teacher, special technical operations officer, case management associate)? Give summary @ -Case discussed with hospitalist for admission Was critical care preformed (if so, how long)? @ -No Undiagnosed new problem with uncertain prognosis? @ -No Drug Therapy requiring intensive monitoring for toxicity (Heparin, Nitro, Insulin, Cardizem)? @ -No Were any procedures done? @ -No Diagnosis/symptom? Acute, or Chronic, or Acute on Chronic? Uncomplicated (without systemic symptoms) or Complicated (systemic symptoms)? @ -Gravely disabled Side effects of treatment? @ -No Exacerbation, Progression, or Severe Exacerbation? @ -No Poses a threat to life or bodily function? How? (Chest pain, [place], MA, pneumonia, PE, COPD, DKA, ARF, appy, cholecystitis, CVA, Diverticulitis, Homicidal, Suicidal, threat to staff... and all critical care pts) @ -yes - Lab Data Result diagrams: 08/19/24 17:49 08/19/24 17:49 Lab Results 08/19/24 08/19/24 Range/Units 17:49 17:49 WBC 10.67 H (4.50-10.00) 10*3/uL RBC 3.31 L (4.40-5.60) 10*6/uL Hgb 9.8 L (13.0-17.0) g/dL Hct 27.8 L (39.6-50.0) % MCV 84.0 (80.0-97.0) fL MCH 29.6 (27.0-32.0) pg MCHC 35.3 (32.0-37.0) g/dL Plt Count 248 (140-440) 10*3/uL MPV 9.5 (9.5-12.2) fL Immature Gran % (Auto) 1.8 % Neutrophils % 86.0 % Lymphocytes % 4.1 % Monocytes % 7.7 % Eosinophils % 0.2 % Basophils % 0.2 % Immature Gran # 0.19 H (0.00-0.04) 10*3/uL Neutrophils # 9.18 H (1.80-7.70) 10*3/uL Lymphocytes # 0.44 L (0.90-5.00) 10*3/uL Monocytes # 0.82 (0.20-1.00) 10*3/uL Eosinophils # 0.02 L (0.04-0.35) 10*3/uL Basophils # 0.02 (0.00-0.10) 10*3/uL Manual Slide Review Performed Immature Plt Fraction 1.9 (1.1-6.1) % Sodium 129 L (137-145) mmol/L Potassium 4.4 (3.5-5.1) mmol/L Chloride 92 L (98-107) mmol/L Carbon Dioxide 26 (22-30) mmol/L Anion Gap 11 mmol/L BUN 13 (9-20) mg/dL Creatinine 0.86 (0.66-1.25) mg/dL Est GFR (CKD-EPI)AfAm >90 (>60 ml/min/1.73 sqM) Est GFR (CKD-EPI)NonAf 84 (>60 ml/min/1.73 sqM) Glucose 140 H (74-99) mg/dL Calcium 8.9 (8.4-10.2) mg/dL Total Bilirubin 1.0 (0.2-1.3) mg/dL AST 34 (17-59) U/L ALT 22 (4-49) U/L Alkaline Phosphatase 87 (38-126) U/L Total Protein 5.7 L (6.3-8.2) g/dL Albumin 3.1 L (3.5-5.0) g/dL Lipase 44 (23-300) U/L Disposition Clinical Impression: Gravely disabled Disposition: ADMITTED IP TO THIS [facility] Condition: Fair Referrals: Enrrique Reese DO [Primary Care Provider] - 1-2 days Decision Time: 19:54
[2024-08-19 18:12] LABS: ALT 22 U/L (4-49); African American GFR (CKD) >90 (>60 ml/min/1.73 sqM); Albumin 3.1 g/dL (3.5-5.0); Anion Gap 11 mmol/L; Blood Urea Nitrogen 13 mg/dL (9-20); Calcium 8.9 mg/dL (8.4-10.2); Carbon Dioxide 26 mmol/L (22-30); Chloride 92 mmol/L (98-107); Glucose 140 mg/dL (74-99); Lipase 44 U/L (23-300); Non-African American GFR(CKD) 84 (>60 ml/min/1.73 sqM); Sodium 129 mmol/L (137-145); Total Protein 5.7 g/dL (6.3-8.2)
[2024-08-19 18:16] LABS: AST 34 U/L (17-59); Alkaline Phosphatase 87 U/L (38-126); Potassium 4.4 mmol/L (3.5-5.1)
[2024-08-19 18:17] LABS: Basophils # (A) 0.02 10*3/uL (0.00-0.10); Basophils % (A) 0.2 %; Eosinophils # (A) 0.02 10*3/uL (0.04-0.35); Eosinophils % (A) 0.2 %; HCT 27.8 % (39.6-50.0); HGB 9.8 g/dL (13.0-17.0); Immature Platelet Fraction 1.9 % (1.1-6.1); Lymphocytes # (A) 0.44 10*3/uL (0.90-5.00); Lymphocytes % (A) 4.1 %; MCH 29.6 pg (27.0-32.0); MCHC 35.3 g/dL (32.0-37.0); Mean Platelet Volume 9.5 fL (9.5-12.2); Monocytes # (A) 0.82 10*3/uL (0.20-1.00); Monocytes % (A) 7.7 %; Neutrophils # (A) 9.18 10*3/uL (1.80-7.70); RBC 3.31 10*6/uL (4.40-5.60); RDW 15.8 % (11.5-14.5); WBC 10.67 10*3/uL (4.50-10.00)
--- NOTE | 2024-08-19 18:21 | XR ---
EXAMINATION TYPE: XR chest 2V DATE OF EXAM: 08/19/2024 6:15 PM COMPARISON: 08/03/2024 CLINICAL INDICATION: Male, 79 years old with history of hip pain, cough: Shortness of breath TECHNIQUE: XR chest 2V views of the chest are obtained. FINDINGS: Scattered senescent parenchymal changes noted. Hyperinflation compatible with COPD. No evidence for infiltrate. No evidence for atelectasis. Heart size is stable. Mediastinal structures are stable and grossly unremarkable. No evidence for hilar prominence. Degenerative changes dorsal spine. IMPRESSION: 1. No evidence for acute pulmonary disease. [facility], , 08/19/2024 6:19 PM
--- NOTE | 2024-08-19 18:22 | XR ---
EXAMINATION TYPE: XR Hip Complete LT DATE OF EXAM: 08/19/2024 6:16 PM COMPARISON: 05/11/2024 CLINICAL INDICATION: Male, 79 years old with history of hip pain, cough, pain TECHNIQUE: XR Hip Complete LT XX views were obtained. FINDINGS: There is no acute fracture/dislocation evident. The joint space appears within normal limits. The o verlying soft tissue appears unremarkable. Vascular calcifications noted. IMPRESSION: No acute fracture or dislocation. [facility], , 08/19/2024 6:20 PM
[2024-08-19 18:57] LABS: Platelet Count 248 10*3/uL (140-440)
[2024-08-19] MEDS ORDERED: MORPHINE SULFATE 4 MG/ML SYRINGE IVP PRN (19:35)
[2024-08-19] MEDS ORDERED: NALOXONE 0.4 MG/ML 1 ML VIAL IV PRN (19:50)
[2024-08-19] MEDS: SODIUM CHLORIDE 0.9% 1,000 ML IV SCH (20:00)
[2024-08-19 21:07] LABS: Influenza A Not Detected (Not Detectd); Influenza B Not Detected (Not Detectd); RSV Not Detected (Not Detectd)
[2024-08-19] MEDS ORDERED: DEXTROSE 50% SYRINGE 50 ML IVP PRN ×2 (23:14)
--- NOTE | 2024-08-20 03:03 | P.HPIM ---
History of Present Illness H&P Date: 08/19/24 Patient is a 79-year-old male CAD status post stent, COPD on home O2 3 L nasal cannula, GERD, hyperlipidemia, hypertension, anxiety, depression here for evaluation of shortness of breath and not feeling well. Patient is known to have multiple visits to our ED, and was last seen 08/03 and left AMA the following day. On that admission, he was found to have sepsis with septic shock and acute hypoxic respiratory failure requiring vasopressors. Patient called EMS to seek care in the ED he reports that he has been experiencing shortness of breath and left hip pain since he left the hospital. He mentions that he has a sore on his left hip that has been there for a while. Since he left the hospital on 08/04, the patient reported that he was having trouble caring for himself and feels very weak to the point that he hasn't been able to move and just lying down at bed. Not been able to eat or drink a lot at home because of feeling weak. He denied chest pain, palpitations, abdominal pain, focal weakness, productive cough, extremity swelling or recent fall or trauma. On admission: Vitals: 97.1 Fahrenheit, VT 75, RR 20, BP 125/75, O2 saturation 94% on room air Labs: WBC 10.67, hemoglobin 9.8, sodium 129, potassium 4.4, bicarb 26, BUN 13, creatinine 0.86, glucose 140, calcium 8.9, AST 34, ALT 22, alk phos 87. Cepheid 4 Plex negative. Imaging: EKG showed sinus tachycardia with a rate of 102 bpm, occasional PAC, left axis deviation, no ST-T changes, inverted T waves in leads V4 to V6, lead II and lead I, QTc 406 MS. Hip x-ray showed no acute fracture or dislocation. Chest x-ray showed no acute evidence for cardiopulmonary disease. ED documentation reviewed. Review of systems: Pertinent positives and negatives as discussed in HPI, a complete review of systems was performed and all other systems are negative. Social history: Tobacco: Former smoker. He quit about 15 years ago Alcohol: occasional intake Recreational drugs: Denied recreational or illicit drug history Travel: No recent prolonged travel Physical examination: Vital signs reviewed General: non toxic, no distress, appears at stated age, on nasal cannula Derm: no unusual rashes/lesions, warm, left hip decubitus ulcer Head: atraumatic, normocephalic, symmetric Eyes: EOMI, anicteric sclera, pupils equal round reactive to light ENT: Nose and ears atraumatic Neck: No cervical lymphadenopathy, trachea midline, supple Mouth: no lip lesion, mucus membranes moist Cardiovascular: S1S2 reg, no murmur Lungs: diffuse rhonchi, no rales, no accessory muscle use Abdominal: soft, nondistended, nontender to palpation, no guarding Ext: muscle strength 5 out of 5 in all 4 extremities grossly, no gross muscle atrophy, no contractures, positive dorsalis pedis pulse bilateral, +2 bilateral saeed edema, Neuro: CN II-XI grossly intact, no gross focal neuro deficits Psych: Alert and oriented x 3, appropriate affect and mood Assessment/Plan: 79-year-old male with CAD status post stent, COPD on home oxygen, anxiety, depression and multiple ED visits here for evaluation of shortness of breath and generalized weakness and fatigue. Found to have hyponatremia on labs. Noted to have debility on assessment. The patient is admitted with an anticipated less than than 2 midnight stay for evaluation of hyponatremia and debility Active: #. Hypovolemic hyponatremia, due to poor solute intake #. Debility -Sodium 129 on admission. Patient reported poor oral intake at home -Patient is hemodynamically stable and asymptomatic at this time -Encourage oral intake -Recheck sodium in the morning -Consult PT OT -Consult Social work #. Chronic anemia -Hemoglobin 9.8 on admission -Continue home ferrous sulfate and vitaminc C tablets -Monitor hemoglobin #. Leukocytosis likely reactive -WBC 10.67 on admission -Patient afebrile on evaluation -Will monitor for now Chronic Conditions: #. CAD status post stent #. COPD on home O2 3 L #. GERD #. Hyperlipidemia #. Hypertension #. Anxiety #. Depression -Continue home albuterol, aspirin, Lipitor 40 mg, Plavix 75 mg, Symbicort inhaler, folic acid, furosemide, losartan 12.5 mg, Lopressor 25 mg, sp ironolactone 25 mg, Spiriva inhaler -Continue supplemental oxygen F: Oral intake E: Monitor electrolytes N: Heart healthy diet A: Ambulate as needed DVT ppx: Lovenox 40 mg subcu daily CODE STATUS: Full Discussed with: Patient Anticipated discharge place: Home Gloria Thapa MD PGY-1 Internal Medicine Dictation was produced using [employer] dictation software. please excuse any grammatical, word or spelling errors. I have seen and evaluated the patient today. Discussed with the resident and agree with the residents finding and plan as documented in the resident's note. Past Medical History Past Medical History: Coronary Artery Disease (CAD), COPD, GERD/Reflux, Hyperlipidemia, Hypertension, Myocardial Infarction (VT), Pulmonary Embolus (PE) , Renal Disease Additional Past Medical History / Comment(s): home O2 (3L [place] HS), bilateral PEs in 2003, history ETOH abuse - pt states he has never had withdrawal symptoms, c hronic low back pain/sciatica/spurs/disc disease - much improved after back injections, past urinary retention, diverticulitis/benign colon polyps removed, nephrolithiasis - passed stones on his own, shingelles 16 years ago - R shoulder. Last Myocardial Infarction Date:: 2010 History of Any Multi-Drug Resistant Organisms: None Reported Past Surgical History: Heart Catheterization With Stent Additional Past Surgical History / Comment(s): back injections for pain, piece of metal removed from right eye, EGD, colonoscopy Past Anesthesia/Blood Transfusion Reactions: No Reported Reaction Additional Past Anesthesia/Blood Transfusion Reaction / Comment(s): claustrophobia Date of Last Stent Placement:: 2010 Past Psychological History: Anxiety, Depression, PTSD Smoking Status: Former smoker Past Alcohol Use History: None Reported Past Drug Use History: None Reported - Past Family History Mother Family Medical History: Cancer Additional Family Medical History / Comment(s): from breast cancer at age 53. Father Family Medical History: Coronary Artery Disease (CAD), Myocardial Infarction (VT) Additional Family Medical History / Comment(s): 4 MIs/CABG. at age 72. Medications and Allergies Home Medications Medication Instructions Recorded Confirmed Type Aspirin EC [Ecotrin Low Dose] 81 mg PO DAILY 06/22/18 08/19/24 History Budesonide/Formoterol Fumarate 2 puff INHALATION RT-BID 06/22/18 08/19/24 History [Symbicort 160-4.5 Mcg Inhaler] Ipratropium/Albuterol Sulfate 1 puff INHALATION RT-QID 06/22/18 08/19/24 History [Combivent Respimat Inhaler] Metoprolol Tartrate [Lopressor] 25 mg PO BID 06/22/18 08/19/24 History Clopidogrel Bisulfate [Plavix] 75 mg PO DAILY 07/01/18 08/19/24 History Albuterol Inhaler [Ventolin Hfa 2 puff INHALATION RT-TID PRN 12/07/19 08/19/24 History Inhaler] Albuterol Nebulized [Ventolin 2.5 mg INHALATION RT-QID 12/07/19 08/19/24 History Nebulized] Loratadine [Claritin] 10 mg PO DAILY 12/07/19 08/19/24 History Simvastatin [Zocor] 40 mg PO HS 12/07/19 08/19/24 History Tiotropium 18 Mcg/Puff [Spiriva] 2 puff INHALATION RT-DAILY 12/07/19 08/19/24 History Cholecalciferol [Vitamin D3 (25 25 mcg PO BID 03/17/24 08/19/24 History Mcg = 1000 Iu)] Furosemide [Lasix] 40 mg PO DAILY 04/16/24 08/19/24 History Spironolactone [Aldactone] 25 mg PO DAILY #90 tab 06/24/24 08/19/24 Rx HYDROcodone/APAP 5-325MG [[place] 1 tab PO TID PRN 07/28/24 08/19/24 History 5-325] Meloxicam [Mobic] 7.5 mg PO DAILY 07/28/24 08/19/24 History Ondansetron Odt [Zofran ODT] 4 mg PO Q8HR PRN 07/28/24 08/19/24 History predniSONE See Taper PO DIRECTED 08/03/24 08/19/24 History Ferrous Sulfate [Iron (65 MG 325 mg PO W/LUNCH 14 Days #14 tab 08/04/24 08/19/24 Rx Elemental)] Folic Acid 1 mg PO DAILY 14 Days #14 tab 08/04/24 08/19/24 Rx Losartan [Cozaar] 12.5 mg PO DIRECTED 08/19/24 08/19/24 History Allergies Allergy/AdvReac Type Severity Reaction Status Date / Time fluticasone AdvReac Nausea Verified 08/19/24 19:55 [From Wixela Inhub] levofloxacin [From Levaquin] AdvReac TENDON PAIN Verified 08/19/24 19:55 salmeterol AdvReac Nausea Verified 08/19/24 19:55 [From Partha Medelub] Physical Exam Vitals: Vital Signs Temp Pulse Resp BP Pulse Ox 08/19/24 19:15 98 20 107/58 96 08/19/24 18:14 86 22 148/86 98 08/19/24 17:53 65 16 130/68 98 08/19/24 17:09 97.1 F L 75 20 125/75 94 L Intake and Output 08/19/24 08/19/24 08/19/24 06:59 14:59 22:59 Other: Weight 113.398 kg Results CBC & Chem 7: 08/20/24 03:29 08/20/24 03:29 Labs: Abnormal Lab Results - Last 24 Hours (Table) 08/19/24 08/19/24 Range/Units 17:49 17:49 WBC 10.67 H (4.50-10.00) 10*3/uL RBC 3.31 L (4.40-5.60) 10*6/uL Hgb 9.8 L (13.0-17.0) g/dL Hct 27.8 L (39.6-50.0) % Immature Gran # 0.19 H (0.00-0.04) 10*3/uL Neutrophils # 9.18 H (1.80-7.70) 10*3/uL Lymphocytes # 0.44 L (0.90-5.00) 10*3/uL Eosinophils # 0.02 L (0.04-0.35) 10*3/uL Sodium 129 L (137-145) mmol/L Chloride 92 L (98-107) mmol/L Glucose 140 H (74-99) mg/dL Total Protein 5.7 L (6.3-8.2) g/dL Albumin 3.1 L (3.5-5.0) g/dL
[2024-08-20] MEDS: HYDROcodone/APAP 5-325MG 1 EACH TAB PO PRN (03:40)
[2024-08-20 03:48] LABS: Basophils # (A) 0.01 10*3/uL (0.00-0.10); Basophils % (A) 0.1 %; Eosinophils # (A) 0.01 10*3/uL (0.04-0.35); Eosinophils % (A) 0.1 %; HCT 26.6 % (39.6-50.0); Lymphocytes # (A) 0.84 10*3/uL (0.90-5.00); Lymphocytes % (A) 10.1 %; MCH 29.5 pg (27.0-32.0); MCHC 33.8 g/dL (32.0-37.0); MCV 87.2 fL (80.0-97.0); Mean Platelet Volume 8.8 fL (9.5-12.2); Monocytes # (A) 0.87 10*3/uL (0.20-1.00); Monocytes % (A) 10.5 %; Neutrophils # (A) 6.37 10*3/uL (1.80-7.70); Neutrophils % (A) 76.9 %; Platelet Count 246 10*3/uL (140-440); RBC 3.05 10*6/uL (4.40-5.60); RDW 15.9 % (11.5-14.5); WBC 8.29 10*3/uL (4.50-10.00)
[2024-08-20 04:15] LABS: African American GFR (CKD) >90 (>60 ml/min/1.73 sqM); Anion Gap 7 mmol/L; Blood Urea Nitrogen 11 mg/dL (9-20); Calcium 8.8 mg/dL (8.4-10.2); Carbon Dioxide 30 mmol/L (22-30); Chloride 93 mmol/L (98-107); Glucose 107 mg/dL (74-99); Non-African American GFR(CKD) 85 (>60 ml/min/1.73 sqM); Potassium 3.9 mmol/L (3.5-5.1); Sodium 130 mmol/L (137-145)
[2024-08-20] MEDS: SYMBICORT 160-4.5 MCG INHALER INHALATION SCH (06:06)
[2024-08-20] MEDS: ALBUTEROL NEBULIZED 2.5 MG/3 ML INHALATION SCH (06:06)
[2024-08-20 07:35] LABS: Glucose,Whole Blood 97 mg/dL (70-110)
[2024-08-20] MEDS: INSULIN LISPRO (HumaLOG) 100 UNIT/ML 10 mL VL SQ SCH (07:55)
[2024-08-20] MEDS: ASCORBIC ACID 500 MG TAB PO SCH (08:29)
[2024-08-20] MEDS: LOSARTAN 25 MG TAB PO SCH (08:29)
[2024-08-20] MEDS: FOLIC ACID 1 MG TAB PO SCH (08:29)
[2024-08-20] MEDS: FERROUS SULFATE 325 MG TAB PO SCH (08:29)
[2024-08-20] MEDS: METOPROLOL TARTRATE 25 MG TAB PO SCH (08:29)
[2024-08-20] MEDS: CLOPIDOGREL 75 MG TAB PO SCH (08:29)
[2024-08-20] MEDS: FUROSEMIDE 40 MG TAB PO SCH (08:29)
[2024-08-20] MEDS: SPIRONOLACTONE 25 MG TAB PO SCH (08:29)
[2024-08-20] MEDS: ASPIRIN 81 MG PO SCH (08:29)
[2024-08-20 11:56] LABS: Glucose,Whole Blood 97 mg/dL (70-110)
[2024-08-20] MEDS: FUROSEMIDE 40 MG TAB PO STA (13:56)
--- NOTE | 2024-08-20 14:38 | P.PN ---
Subjective Progress Note Date: 08/20/24 Patient is a 79-year-old with CAD, COPD on home O2 at 3 L, GERD, HTN, HLD, and anxiety presenting with shortness of breath. In the ER found to have sodium of 129, hemoglobin of 9.8, and 4 Plex was negative. Admitted with hypovolemic hyponatremia, anemia, and leukocytosis. Patient seen and examined at bedside. No longer complaining of left hip pain. Now complaining of shortness of breath which is acute on chronic for patient. States he is unsure how long it has been going on but is unable to walk to and from the bathroom without becoming short of breath. States home never showed up after discharge last time to help. Very agitated and angry. Vital signs reviewed General: Nontoxic, no distress, appears at stated age Cardiovascular: S1S2 reg, no murmur Lungs: CTA bilateral, no rhonchi, no rales, no accessory muscle use Abdominal: Soft, nontender to palpation, no guarding Ext: No gross muscle atrophy, 3+ lower extremity edema, bilateral hand edema], no contractures Neuro: CN II-XI grossly intact, no focal neuro deficits Psych: Alert, oriented, appropriate affect Assessment/Plan: Hypervolemic hyponatremia Acute exacerbation of systolci CHF with EF 40-45% - Initially was going to start IV Lasix. However patient lost IV access and there is refusing restarting IV. Additional Lasix 40 mg p.o. x 1 with increasing oral Lasix to 60 twice daily. - Check BNP. - Chest x-ray without a view fluid overload. Left hip decubitus ulcer Generalized weakness Inability to care for self - Consult PT/OT - off loading Anemia - chronic but worsened was at ~12 - follow Hgb HTN HLD CAD -Aldactone, Lasix, Lopressor, Cozaar -1 slightly low blood pressure overnight. Will continue to monitor COPD without exacerbation Acute hypoxic respiratory failure on 3 L at baseline - Continue bronchodilators Imaging: Hip and chest x-ray no acute process Data Review: CBC and BMP reviewed hemoglobin 9, sodium 130 DVT prophylaxis: early ambulation Anticipated discharge date: in 1-[address]: home with home health This dictation was prepared using [employer] voice recognition software. Though every attempt is made to correct errors during dictation some may still exist Active Medications Generic Name Dose Route Start Last Admin Trade Name Freq PRN Reason Stop Dose Admin Hydrocodone Bitart/Acetaminophen 1 each 08/19/24 23:11 08/20/24 03:40 Hydrocodone/Apap 5-325mg 1 Each Tab PO 1 each TID PRN Administration Pain Albuterol Sulfate 2.5 mg 08/19/24 23:11 Albuterol Nebulized 2.5 Mg/3 Ml INHALATION RT-TID PRN Shortness Of Breath Albuterol Sulfate 2.5 mg 08/20/24 08:00 08/20/24 06:06 Albuterol Nebulized 2.5 Mg/3 Ml INHALATION Not Given RT-QID [facility] Ascorbic Acid 1,000 mg 08/20/24 12:30 08/20/24 08:29 Ascorbic Acid 500 Mg Tab PO 1,000 mg W/LUNCH CYNDI Administration Aspirin 81 mg 08/20/24 09:00 08/20/24 08:29 Aspirin 81 Mg PO 81 mg DAILY CYNDI Administration Atorvastatin Calcium 40 mg 08/20/24 21:00 Atorvastatin 40 Mg Tab PO HS [facility] Budesonide/Formoterol Fumarate 2 puff 08/20/24 08:00 08/20/24 06:06 Symbicort 160-4.5 Mcg Inhaler INHALATION Not Given RT-BID [facility] Clopidogrel Bisulfate 75 mg 08/20/24 09:00 08/20/24 08:29 Clopidogrel 75 Mg Tab PO 75 mg DAILY CYNDI Administration Dextrose/Water 25 ml 08/19/24 23:14 Dextrose 50% Syringe 50 Ml IVP PER PROTOCOL PRN Hypoglycemia Protocol Dextrose/Water 50 ml 08/19/24 23:14 Dextrose 50% Syringe 50 Ml IVP PER PROTOCOL PRN Hypoglycemia Protocol Ferrous Sulfate 325 mg 08/20/24 12:30 08/20/24 08:29 Ferrous Sulfate 325 Mg Tab PO 325 mg W/LUNCH CYNDI Administration Folic Acid 1 mg 08/20/24 09:00 08/20/24 08:29 Folic Acid 1 Mg Tab PO 1 mg DAILY CYNDI Administration Furosemide 40 mg 08/20/24 09:00 08/20/24 08:29 Furosemide 40 Mg Tab PO 40 mg DAILY CYNDI Administration Sodium Chloride 1,000 mls @ 20 mls/hr 08/19/24 20:00 08/19/24 20:00 Saline 0.9% IV Not Given .Q24H [facility] Insulin Human Lispro 0 unit 08/20/24 07:30 08/20/24 07:55 Insulin Lispro (Humalog) 100 Unit/Ml 10 Ml Vl SQ Not Given ACHS [facility] Protocol Losartan Potassium 12.5 mg 08/20/24 09:00 08/20/24 08:29 Losartan 25 Mg Tab PO 12.5 mg DAILY CYNDI Administration Metoprolol Tartrate 25 mg 08/20/24 09:00 08/20/24 08:29 Metoprolol Tartrate 25 Mg Tab PO 25 mg BID CYNDI Administration Morphine Sulfate 4 mg 08/19/24 19:35 Morphine Sulfate 4 Mg/Ml Syringe IVP ONCE PRN Pain Naloxone HCl 0.2 mg 08/19/24 19:50 Naloxone 0.4 Mg/Ml 1 Ml Vial IV Q2M PRN Opioid Reversal Spironolactone 25 mg 08/20/24 09:00 08/20/24 08:29 Spironolactone 25 Mg Tab PO 25 mg DAILY CYNDI Administration Tiotropium [place] 2 puff 08/20/24 08:00 Tiotropium 2.5 Mcg Inhaler INHALATION RT-DAILY [facility] Objective - Vital Signs Vital signs: Vital Signs Temp 98.2 F 08/20/24 07:50 Pulse 86 08/20/24 07:50 Resp 16 08/20/24 07:50 BP 106/58 08/20/24 07:50 Pulse Ox 96 08/20/24 07:50 FiO2 Intake & Output 08/19/24 08/20/24 08/20/24 18:59 06:59 18:59 Output Total 250 Balance -250 Weight 113.398 kg 113.398 kg Output: Urine 250 Other: Voiding Method Urinal - Labs CBC & Chem 7: 08/20/24 03:29 08/20/24 03:29 Labs: Abnormal Lab Results - Last 24 Hours (Table) 08/19/24 08/19/24 08/20/24 Range/Units 17:49 17:49 03:29 WBC 10.67 H (4.50-10.00) 10*3/uL RBC 3.31 L 3.05 L (4.40-5.60) 10*6/uL Hgb 9.8 L 9.0 L (13.0-17.0) g/dL Hct 27.8 L 26.6 L (39.6-50.0) % RDW 15.9 H (11.5-14.5) % MPV 8.8 L (9.5-12.2) fL Immature Gran # 0.19 H 0.19 H (0.00-0.04) 10*3/uL Neutrophils # 9.18 H (1.80-7.70) 10*3/uL Lymphocytes # 0.44 L 0.84 L (0.90-5.00) 10*3/uL Eosinophils # 0.02 L 0.01 L (0.04-0.35) 10*3/uL Sodium 129 L (137-145) mmol/L Chloride 92 L (98-107) mmol/L Glucose 140 H (74-99) mg/dL Total Protein 5.7 L (6.3-8.2) g/dL Albumin 3.1 L (3.5-5.0) g/dL 08/20/ Range/Units 03:29 WBC (4.50-10.00) 10*3/uL RBC (4.40-5.60) 10*6/uL Hgb (13.0-17.0) g/dL Hct (39.6-50.0) % RDW (11.5-14.5) % MPV (9.5-12.2) fL Immature Gran # (0.00-0.04) 10*3/uL Neutrophils # (1.80-7.70) 10*3/uL Lymphocytes # (0.90-5.00) 10*3/uL Eosinophils # (0.04-0.35) 10*3/uL Sodium 130 L (137-145) mmol/L Chloride 93 L (98-107) mmol/L Glucose 107 H (74-99) mg/dL Total Protein (6.3-8.2) g/dL Albumin (3.5-5.0) g/dL
[2024-08-20] MEDS: FUROSEMIDE 20 MG TAB PO SCH (17:00)
[2024-08-20 17:03] LABS: Glucose,Whole Blood 110 mg/dL (70-110)
[2024-08-20 20:23] LABS: Glucose,Whole Blood 131 mg/dL (70-110)
[2024-08-20] MEDS: ATORVASTATIN 40 MG TAB PO SCH (20:54)
[2024-08-21 06:35] LABS: HCT 29.4 % (39.6-50.0); HGB 9.9 g/dL (13.0-17.0); MCH 29.6 pg (27.0-32.0); MCHC 33.7 g/dL (32.0-37.0); MCV 87.8 fL (80.0-97.0); Mean Platelet Volume 8.9 fL (9.5-12.2); Platelet Count 278 10*3/uL (140-440); RBC 3.35 10*6/uL (4.40-5.60); RDW 15.8 % (11.5-14.5); WBC 7.97 10*3/uL (4.50-10.00)
[2024-08-21 06:53] LABS: African American GFR (CKD) 79 (>60 ml/min/1.73 sqM); Anion Gap 9 mmol/L; Blood Urea Nitrogen 11 mg/dL (9-20); Calcium 9.1 mg/dL (8.4-10.2); Carbon Dioxide 32 mmol/L (22-30); Chloride 90 mmol/L (98-107); Glucose 91 mg/dL (74-99); Magnesium 1.5 mg/dL (1.6-2.3); Non-African American GFR(CKD) 69 (>60 ml/min/1.73 sqM); Potassium 3.8 mmol/L (3.5-5.1); Sodium 131 mmol/L (137-145)
[2024-08-21 07:04] LABS: Glucose,Whole Blood 92 mg/dL (70-110)
[2024-08-21] MEDS: TIOTROPIUM 2.5 MCG INHALER INHALATION SCH (07:46)
[2024-08-21] MEDS: ALBUTEROL NEBULIZED 2.5 MG/3 ML INHALATION PRN (08:42)
[2024-08-21] MEDS: MAGNESIUM SULFATE-D5W PMX 1 GM in DEXTROSE/WATER 1 100ML.BAG IVPB SCH (08:42)
[2024-08-21] MEDS: MAGNESIUM OXIDE 400 MG TAB PO SCH (09:15)
[2024-08-21] MEDS: LIDOCAINE 4% PATCH TOPICAL SCH (11:44)
[2024-08-21 11:56] LABS: Glucose,Whole Blood 85 mg/dL (70-110)
[2024-08-21] MEDS: FUROSEMIDE 10 MG/ML 4 ML VIAL IV SCH (12:42)
[2024-08-21] MEDS: methylPREDNISolone SOD SUCCI 125 MG/2 ML VIAL IV SCH (12:42)
[2024-08-21 17:05] LABS: Glucose,Whole Blood 260 mg/dL (70-110)
--- NOTE | 2024-08-21 17:28 | P.PN ---
Subjective Progress Note Date: 08/21/24 Patient is a 79-year-old with CAD, COPD on home O2 at 3 L, GERD, HTN, HLD, and anxiety presenting with shortness of breath. In the ER found to have sodium of 129, hemoglobin of 9.8, and 4 Plex was negative. Admitted with hypovolemic hyponatremia, anemia, and leukocytosis. Patient seen and examined at bedside. No longer complaining of left hip pain. Now complaining of shortness of breath which is acute on chronic for patient. States he is unsure how long it has been going on but is unable to walk to and from the bathroom without becoming short of breath. States home never showed up after discharge last time to help. Very agitated and angry. Vital signs reviewed General: Nontoxic, no distress, appears at stated age Cardiovascular: S1S2 reg, no murmur Lungs: CTA bilateral, no rhonchi, no rales, no accessory muscle use Abdominal: Soft, nontender to palpation, no guarding Ext: No gross muscle atrophy, 3+ lower extremity edema, bilateral hand edema, no contractures Neuro: CN II-XI grossly intact, no focal neuro deficits Psych: Alert, oriented, appropriate affect Assessment/Plan: Hypervolemic hyponatremia Acute exacerbation of systolci CHF with EF 40-45% - DC oral Lasix, start Lasix 40 mg IV every 12 - Check BNP. - Chest x-ray without a view fluid overload. Left hip decubitus ulcer Generalized weakness Inability to care for self Left shoulder pain - Add lidocaine patch - Consult PT/OT - off loading Anemia - chronic but worsened was at ~12 - follow Hgb as outpatient HTN HLD CAD -Aldactone, Lasix, Lopressor, Cozaar -1 slightly low blood pressure overnight. Will continue to monitor COPD with exacerbation Acute hypoxic respiratory failure on 3 L at baseline - Continue bronchodilators sheduled and prn - Start Solu-Medrol 60 every 6. Imaging: none new Data Review: Labs reviewed CBC remarkable for hemoglobin of 9.9, BMP remarkable for sodium of 131 and magnesium at 1.5 DVT prophylaxis: early ambulation Anticipated discharge date: in 1-[address]: home with home health This dictation was prepared using [employer] voice recognition software. Though every attempt is made to correct errors during dictation some may still exist Objective - Vital Signs Vital signs: Vital Signs Temp 98.5 F 08/21/24 11:51 Pulse 80 08/21/24 16:19 Resp 16 08/21/24 11:51 BP 96/54 08/21/24 11:51 Pulse Ox 92 L 08/21/24 11:51 FiO2 Intake & Output 08/20/24 08/21/24 08/21/24 18:59 06:59 18:59 Intake Total 2360 1480 Output Total 250 1450 Balance 2110 -1450 1480 Intake: Oral 2360 1480 Output: Urine 250 1450 Other: Voiding Method Urinal Urinal Urinal # Voids 5 5 - Labs CBC & Chem 7: 08/21/24 06:22 08/21/24 06:22 Labs: Abnormal Lab Results - Last 24 Hours (Table) 08/20/24 08/21/24 08/21/24 Range/Units 20:21 06:22 06:22 RBC 3.35 L (4.40-5.60) 10*6/uL Hgb 9.9 L (13.0-17.0) g/dL Hct 29.4 L (39.6-50.0) % RDW 15.8 H (11.5-14.5) % MPV 8.9 L (9.5-12.2) fL Sodium 131 L (137-145) mmol/L Chloride 90 L (98-107) mmol/L Carbon Dioxide 32 H (22-30) mmol/L POC Glucose (mg/dL) 131 H (70-110) mg/dL Magnesium 1.5 L (1.6-2.3) mg/dL 08/21/24 08/21/24 Range/Units 11:35 17:05 RBC (4.40-5.60) 10*6/uL Hgb (13.0-17.0) g/dL Hct (39.6-50.0) % RDW (11.5-14.5) % MPV (9.5-12.2) fL Sodium (137-145) mmol/L Chloride (98-107) mmol/L Carbon Dioxide (22-30) mmol/L POC Glucose (mg/dL) 260 H (70-110) mg/dL Magnesium 1.5 L (1.6-2.3) mg/dL
[2024-08-21 20:23] LABS: Glucose,Whole Blood 261 mg/dL (70-110)
[2024-08-22 07:07] LABS: Glucose,Whole Blood 197 mg/dL (70-110)
[2024-08-22 12:16] LABS: Glucose,Whole Blood 128 mg/dL (70-110)
--- NOTE | 2024-08-22 13:24 | P.PN ---
Subjective Progress Note Date: 08/22/24 Subjective: Patient seen and examined at bedside. No acute events overnight. Respiratory function has improved. Pertinent positives and negatives as discussed above, a complete review of syst ems was performed and all other systems are negative. Vitals Signs Reviewed. General: Nontoxic, no distress, appears at stated age, chronically ill-appearing Derm: Warm, dry Head: Atraumatic, normocephalic, symmetric Eyes: EOMI, no lid lag, anicteric sclera Mouth: No lip lesion, mucus membranes moist Cardiovascular: S1S2 reg, no murmur Lungs: CTA bilateral, no rhonchi, no rales, no accessory muscle use, supplemental oxygen Abdominal: Soft, nontender to palpation, no guarding, no appreciable organomegaly Ext: No gross muscle atrophy, 2+ pitting edema, no contractures Neuro: CN II-XI grossly intact, no focal neuro deficits Psych: Alert, oriented, appropriate affect Data Reviewed Today: Pertinent Labs: Blood glucose range between 128-261 Imaging: No new imaging Assessment and Plan: Active: COPD with exacerbation Chronic hypoxic respiratory failure on 3 L - Switch Solu-Medrol IV to p.o. prednisone 40 daily - Continue albuterol 3 times daily as needed, 4 times daily scheduled, Symbicort twice daily, Spiriva daily Acute CHF exacerbation, EF 40 to 45% Hypervolemic hyponatremia - Continue IV Lasix for another day, switch to oral Lasix tomorrow - Continue to monitor electrolytes - Continue losartan 12.5 daily, Aldactone 25 daily, metoprolol 25 twice daily consider SGLT2 inhibitor at the time of discharge - Repeat BMP today Left hip decubitus ulcer Generalized weakness Inability to care for self Left shoulder pain - Add lidocaine patch - PT OT, social work - off loading - Wound care consulted Normocytic anemia - Stable - No active bleeding HTN HLD CAD - Continue cardiac meds including aspirin and statin, and Plavix DVT ppx: Lovenox Code status: Full code Anticipated discharge place: Pending clinical course Anticipated discharge time: Pending clinical course Objective - Vital Signs Vital signs: Vital Signs Temp 97.7 F 08/22/24 12:04 Pulse 53 L 08/22/24 12:04 Resp 22 08/22/24 12:04 BP 105/69 08/22/24 12:04 Pulse Ox 92 L 08/22/24 12:04 FiO2 Intake & Output 08/21/24 08/22/24 08/22/24 18:59 06:59 18:59 Intake Total 1960 Output Total 700 Balance 1959 - Intake: Oral 1959 Output: Urine 700 Other: Voiding Method Urinal Urinal Urinal # Voids 5 - Labs CBC & Chem 7: 08/21/24 06:22 08/21/24 06:22 Labs: Abnormal Lab Results - Last 24 Hours (Table) 08/21/24 08/21/24 08/22/24 Range/Units 17:05 20:21 07:05 POC Glucose (mg/dL) 260 H 261 H 197 H (70-110) mg/dL 08/22/24 Range/Units 12:14 POC Glucose (mg/dL) 128 H (70-110) mg/dL
[2024-08-22 16:55] LABS: Glucose,Whole Blood 164 mg/dL (70-110)
[2024-08-22 20:40] LABS: Glucose,Whole Blood 197 mg/dL (70-110)
[2024-08-23 01:38] VITALS: TEMP 97.7
[2024-08-23 07:56] LABS: Glucose,Whole Blood 197 mg/dL (70-110)
[2024-08-23 08:20] VITALS: BP 105/76; RESP 17
[2024-08-23] MEDS: ENOXAPARIN 40 MG/0.4 ML SYRINGE SQ SCH (08:56)
[2024-08-23] MEDS: predniSONE 20 MG TAB PO SCH (08:56)
[2024-08-23 09:51] LABS: Basophils # (A) 0.01 10*3/uL (0.00-0.10); Basophils % (A) 0.1 %; HCT 28.7 % (39.6-50.0); HGB 9.6 g/dL (13.0-17.0); Lymphocytes # (A) 0.52 10*3/uL (0.90-5.00); Lymphocytes % (A) 4.8 %; MCH 29.1 pg (27.0-32.0); MCHC 33.4 g/dL (32.0-37.0); Mean Platelet Volume 8.9 fL (9.5-12.2); Monocytes # (A) 0.53 10*3/uL (0.20-1.00); Monocytes % (A) 4.9 %; Neutrophils # (A) 9.53 10*3/uL (1.80-7.70); Neutrophils % (A) 88.8 %; Platelet Count 306 10*3/uL (140-440); RDW 15.7 % (11.5-14.5); WBC 10.74 10*3/uL (4.50-10.00)
[2024-08-23 10:06] LABS: African American GFR (CKD) >90 (>60 ml/min/1.73 sqM); Anion Gap 10 mmol/L; Blood Urea Nitrogen 19 mg/dL (9-20); Calcium 8.5 mg/dL (8.4-10.2); Carbon Dioxide 30 mmol/L (22-30); Chloride 89 mmol/L (98-107); Glucose 192 mg/dL (74-99); Magnesium 1.8 mg/dL (1.6-2.3); Non-African American GFR(CKD) 80 (>60 ml/min/1.73 sqM); Potassium 3.8 mmol/L (3.5-5.1); Sodium 129 mmol/L (137-145)
[2024-08-23 10:14] LABS: NT-Pro-B-Type Natriuretic Pept 787 pg/mL
[2024-08-23] MEDS ORDERED: ZINC OXIDE PASTE (Z-GUARD) 1 APPLIC TOPICAL PRN (10:42)
--- NOTE | 2024-08-23 10:45 | P.CONS ---
History of Present Illness - Reason for Consult Consult date: 08/23/24 wound care - History of Present Illness This is a 79-year-old patient being seen on [address] for a stage I pressure ulcer to the left hip. Patient states that his ulceration is not open. He is refusing any treatment at this time. Review Of Systems: Constitutional: No fever, no chills, no night sweats. No weight change. No w eakness, fatigue or lethargy. No daytime sleepiness. Integumentary:reports wounds, no lesions. No rash or pruritus. No unusual bruising. No change in hair or nails. Physical exam: General Appearance: Alert, cooperative, no distress, appears stated age. Skin: See HPI all other Skin color, texture, tugor normal, no rashes or lesions. Neurologic: Alert oriented x3 Assessment: 1. Stage I pressure ulcer left hip Plan: 1. Apply zinc barrier cream as needed. At this time patient is refusing any treatment stating that he is going home today. Thank you for the consultation any questions please contact the wound care center DNP note has been reviewed and discussed with Dr. Vergara and the impression and plan of care has been directed as dictated. Past Medical History Past Medical History: Coronary Artery Disease (CAD), COPD, GERD/Reflux, Hyperlipidemia, Hypertension, Myocardial Infarction (NM), Pulmonary Embolus (PE), Renal Disease Additional Past Medical History / Comment(s): home O2 (3L [place]), bilateral PEs in 2003, history ETOH abuse - pt states he has never had withdrawal symptoms, chronic low back pain/sciatica/spurs/disc disease - much improved after back injections, past urinary retention, diverticulitis/benign colon polyps removed, nephrolithiasis - passed stones on his own, shingelles 16 years ago - R shoulder. Last Myocardial Infarction Date:: 2010 History of Any Multi-Drug Resistant Organisms: None Reported Past Surgical History: Heart Catheterization With Stent Additional Past Surgical History / Comment(s): back injections for pain, piece of metal removed from right eye, EGD, colonoscopy Past Anesthesia/Blood Transfusion Reactions: No Reported Reaction Additional Past Anesthesia/Blood Transfusion Reaction / Comm: claustrophobia Date of Last Stent Placement:: 2010 Past Psychological History: Anxiety, Depression, PTSD Smoking Status: Former smoker Past Alcohol Use History: None Reported Past Drug Use History: None Reported - Past Family History Mother Family Medical History: Cancer Additional Family Medical History / Comment(s): from breast cancer at age 53. Father Family Medical History: Coronary Artery Disease (CAD), Myocardial Infarction (NM) Additional Family Medical History / Comment(s): 4 MIs/CABG. at age 72. Medications and Allergies Home Medications Medication Instructions Recorded Confirmed Type Aspirin EC [Ecotrin Low Dose] 81 mg PO DAILY 06/22/18 08/19/24 History Budesonide/Formoterol Fumarate 2 puff INHALATION RT-BID 06/22/18 08/19/24 History [Symbicort 160-4.5 Mcg Inhaler] Ipratropium/Albuterol Sulfate 1 puff INHALATION RT-QID 06/22/18 08/19/24 History [Combivent Respimat Inhaler] Metoprolol Tartrate [Lopressor] 25 mg PO BID 06/22/18 08/19/24 History Clopidogrel Bisulfate [Plavix] 75 mg PO DAILY 07/01/18 08/19/24 History Albuterol Inhaler [Ventolin Hfa 2 puff INHALATION RT-TID PRN 12/07/19 08/19/24 History Inhaler] Albuterol Nebulized [Ventolin 2.5 mg INHALATION RT-QID 12/07/19 08/19/24 History Nebulized] Loratadine [Claritin] 10 mg PO DAILY 12/07/19 08/19/24 History Simvastatin [Zocor] 40 mg PO HS 12/07/19 08/19/24 History Tiotropium 18 Mcg/Puff [Spiriva] 2 puff INHALATION RT-DAILY 12/07/19 08/19/24 History Cholecalciferol [Vitamin D3 (25 25 mcg PO BID 03/17/24 08/19/24 History Mcg = 1000 Iu)] Furosemide [Lasix] 40 mg PO DAILY 04/16/24 08/19/24 History Spironolactone [Aldactone] 25 mg PO DAILY #90 tab 06/24/24 08/19/24 Rx HYDROcodone/APAP 5-325MG [[place] 1 tab PO TID PRN 07/28/24 08/19/24 History 5-325] Meloxicam [Mobic] 7.5 mg PO DAILY 07/28/24 08/19/24 History Ondansetron Odt [Zofran ODT] 4 mg PO Q8HR PRN 07/28/24 08/19/24 History predniSONE See Taper PO DIRECTED 08/03/24 08/19/24 History Ferrous Sulfate [Iron (65 MG 325 mg PO W/LUNCH 14 Days #14 tab 08/04/24 08/19/24 Rx Elemental)] Folic Acid 1 mg PO DAILY 14 Days #14 tab 08/04/24 08/19/24 Rx Losartan [Cozaar] 12.5 mg PO DIRECTED 08/19/24 08/19/24 History Allergies Allergy/AdvReac Type Severity Reaction Status Date / Time fluticasone AdvReac Nausea Verified 08/19/24 19:55 [From [facility]] levofloxacin [From Levaquin] AdvReac TENDON PAIN Verified 08/19/24 19:55 salmeterol AdvReac Nausea Verified 08/19/24 19:55 [From [facility]] Physical Exam Vitals: Vital Signs Temp Pulse Pulse Resp BP Pulse Ox 08/23/24 08:00 97.7 F 82 17 105/76 99 08/23/24 07:52 99 08/23/24 01:37 97.7 F 60 20 93/48 91 L 08/22/24 19:20 97.9 F 89 22 93/52 94 L 08/22/24 18:55 80 08/22/24 18:44 80 08/22/24 12:04 97.7 F 53 L 22 105/69 92 L 08/22/24 11:45 74 08/22/24 11:36 70 08/22/24 10:50 126/77 Intake and Output 08/22/24 08/23/24 08/23/24 22:59 06:59 14:59 Other: Voiding Method Urinal # Voids 2 2 # Bowel Movements 1 1 Results CBC & Chem 7: 08/23/24 09:03 08/23/24 09:03 Labs: Abnormal Lab Results - Last 24 Hours (Table) 08/22/24 08/22/24 08/22/24 Range/Units 12:14 16:53 20:24 WBC (4.50-10.00) 10*3/uL RBC (4.40-5.60) 10*6/uL Hgb (13.0-17.0) g/dL Hct (39.6-50.0) % RDW (11.5-14.5) % MPV (9.5-12.2) fL Immature Gran # (0.00-0.04) 10*3/uL Neutrophils # (1.80-7.70) 10*3/uL Lymphocytes # (0.90-5.00) 10*3/uL Eosinophils # (0.04-0.35) 10*3/uL Sodium (137-145) mmol/L Chloride (98-107) mmol/L Glucose (74-99) mg/dL POC Glucose (mg/dL) 128 H 164 H 197 H (70-110) mg/dL 08/23/24 08/23/24 08/23/24 Range/Units 07:48 09:03 09:03 WBC 10.74 H (4.50-10.00) 10*3/uL RBC 3.30 L (4.40-5.60) 10*6/uL Hgb 9.6 L (13.0-17.0) g/dL Hct 28.7 L (39.6-50.0) % RDW 15.7 H (11.5-14.5) % MPV 8.9 L (9.5-12.2) fL Immature Gran # 0.15 H (0.00-0.04) 10*3/uL Neutrophils # 9.53 H (1.80-7.70) 10*3/uL Lymphocytes # 0.52 L (0.90-5.00) 10*3/uL Eosinophils # 0.00 L (0.04-0.35) 10*3/uL Sodium 129 L (137-145) mmol/L Chloride 89 L (98-107) mmol/L Glucose 192 H (74-99) mg/dL POC Glucose (mg/dL) 197 H (70-110) mg/dL Assessment and Plan (1) Pressure ulcer of left hip, stage 1 Current Visit: Yes Status: Acute Code(s): L89.221 - PRESSURE ULCER OF LEFT HIP, STAGE 1 SNOMED Code(s): 94631739816335
[2024-08-23 12:13] VITALS: PULSE 78
--- NOTE | 2024-08-23 12:16 | P.DS ---
Providers Date of admission: 08/19/24 19:50 Expected date of discharge: 08/23/24 Attending physician: Dave Andre MD Primary care physician: Enrrique Reese Hospital Course: Discharge Diagnosis: COPD with exacerbation Chronic hypoxic respiratory failure on 3 L Acute CHF exacerbation, EF 40 to 45% Hypervolemic hyponatremia Left hip decubitus ulcer Generalized weakness Debility Left shoulder pain Normocytic anemia HTN HLD CAD Hospital Course: 79-year-old male CAD status post stent, COPD on home O2 3 L nasal cannula, GERD, hyperlipidemia, hypertension, anxiety, depression here for evaluation of shortness of breath and not feeling well. Patient is known to have multiple visits to our ED, and was last seen 08/03 and left AMA the following day. On admission: Vitals: 97.1 Fahrenheit, SD 75, RR 20, BP 125/75, O2 saturation 94% on room air Labs: WBC 10.67, hemoglobin 9.8, sodium 129, potassium 4.4, bicarb 26, BUN 13, creatinine 0.86, glucose 140, calcium 8.9, AST 34, ALT 22, alk phos 87. Cepheid 4 Plex negative. Imaging: EKG showed sinus tachycardia with a rate of 102 bpm, occasional PAC, left axis deviation, no ST-T changes, inverted T waves in leads V4 to V6, lead II and lead I, QTc 406 MS. Hip x-ray showed no acute fracture or dislocation. Chest x-ray showed no acute evidence for cardiopulmonary disease. Patient was seen by physical therapy, recommending home care Did have COPD exacerbation as well as mild systolic CHF exacerbation. Patient was diuresed with IV Lasix, started on IV Solu-Medrol. Being discharged on oral Lasix as well as oral prednisone. He has been recommended to see palliative c are through his PCP. Patient is at high risk for readmission. Patient seen and examined at bedside. Vital signs reviewed and stable. General: Nontoxic, no distress, appears at stated age, chronically ill-appearing Derm: Warm, dry Head: Atraumatic, normocephalic, symmetric Eyes: EOMI, no lid lag, anicteric sclera Mouth: No lip lesion, mucus membranes moist Cardiovascular: S1S2 reg, no murmur Lungs: CTA bilateral, no rhonchi, no rales, no accessory muscle use, supplemental oxygen Abdominal: Soft, nontender to palpation, no guarding, no appreciable organomegaly Ext: No gross muscle atrophy, 2+ pitting edema, no contractures Neuro: CN II-XI grossly intact, no focal neuro deficits Psych: Alert, oriented, appropriate affect A total of 32 minutes of time were spent preparing this complex discharge summary. Patient was discharged on 08/23/2024 at 1124. Patient Condition at Discharge: Fair Plan - Discharge Summary Discharge Rx Participant: Yes New Discharge Prescriptions: New predniSONE [Deltasone] 40 mg PO DAILY #6 tab Ascorbic Acid [Vitamin C] 1,000 mg PO W/LUNCH #90 tab Continue Aspirin EC [Ecotrin Low Dose] 81 mg PO DAILY Budesonide/Formoterol Fumarate [Symbicort 160-4.5 Mcg Inhaler] 2 puff INHALATION RT-BID Ipratropium/Albuterol Sulfate [Combivent Respimat Inhaler] 1 puff INHALATION RT-QID Metoprolol Tartrate [Lopressor] 25 mg PO BID Clopidogrel Bisulfate [Plavix] 75 mg PO DAILY Tiotropium 18 Mcg/Puff [Spiriva] 2 puff INHALATION RT-DAILY Simvastatin [Zocor] 40 mg PO HS Albuterol Nebulized [Ventolin Nebulized] 2.5 mg INHALATION RT-QID Loratadine [Claritin] 10 mg PO DAILY Albuterol Inhaler [Ventolin Hfa Inhaler] 2 puff INHALATION RT-TID PRN PRN Reason: Shortness Of Breath Cholecalciferol [Vitamin D3 (25 Mcg = 1000 Iu)] 25 mcg PO BID Furosemide [Lasix] 40 mg PO DAILY Ondansetron Odt [Zofran ODT] 4 mg PO Q8HR PRN PRN Reason: Nausea And Vomiting predniSONE See Taper PO DIRECTED Folic Acid 1 mg PO DAILY 14 Days #14 tab Losartan [Cozaar] 12.5 mg PO DIRECTED Spironolactone [Aldactone] 25 mg PO DAILY #90 tab Meloxicam [Mobic] 7.5 mg PO DAILY HYDROcodone/APAP 5-325MG [[place] 5-325] 1 tab PO TID PRN PRN Reason: Pain Ferrous Sulfate [Iron (65 MG Elemental)] 325 mg PO W/LUNCH 14 Days #14 tab Discharge Medication List Aspirin EC [Ecotrin Low Dose] 81 mg PO DAILY 06/22/18 [History] Budesonide/Formoterol Fumarate [Symbicort 160-4.5 Mcg Inhaler] 2 puff INHALATION RT-BID 06/22/18 [History] Ipratropium/Albuterol Sulfate [Combivent Respimat Inhaler] 1 puff INHALATION RT- QID 06/22/18 [History] Metoprolol Tartrate [Lopressor] 25 mg PO BID 06/22/18 [History] Clopidogrel Bisulfate [Plavix] 75 mg PO DAILY 07/01/18 [History] Albuterol Inhaler [Ventolin Hfa Inhaler] 2 puff INHALATION RT-TID PRN 12/07/19 [History] Albuterol Nebulized [Ventolin Nebulized] 2.5 mg INHALATION RT-QID 12/07/19 [History] Loratadine [Claritin] 10 mg PO DAILY 12/07/19 [History] Simvastatin [Zocor] 40 mg PO HS 12/07/19 [History] Tiotropium 18 Mcg/Puff [Spiriva] 2 puff INHALATION RT-DAILY 12/07/19 [History] Cholecalciferol [Vitamin D3 (25 Mcg = 1000 Iu)] 25 mcg PO BID 03/17/24 [History] Furosemide [Lasix] 40 mg PO DAILY 04/16/24 [History] Spironolactone [Aldactone] 25 mg PO DAILY #90 tab 06/24/24 [Rx] HYDROcodone/APAP 5-325MG [[place] 5-325] 1 tab PO TID PRN 07/28/24 [History] Meloxicam [Mobic] 7.5 mg PO DAILY 07/28/24 [History] Ondansetron Odt [Zofran ODT] 4 mg PO Q8HR PRN 07/28/24 [History] predniSONE See Taper PO DIRECTED 08/03/24 [History] Ferrous Sulfate [Iron (65 MG Elemental)] 325 mg PO W/LUNCH 14 Days #14 tab 08/04/24 [Rx] Folic Acid 1 mg PO DAILY 14 Days #14 tab 08/04/24 [Rx] Losartan [Cozaar] 12.5 mg PO DIRECTED 08/19/24 [History] Ascorbic Acid [Vitamin C] 1,000 mg PO W/LUNCH #90 tab 08/23/24 [Rx] predniSONE [Deltasone] 40 mg PO DAILY #6 tab 08/23/24 [Rx] Follow up Appointment(s)/Referral(s): Enrrique Reese DO [Primary Care Provider] - 1-2 days (Please call office and make appointment) Patient Instructions/Handouts: Heart Failure (DC), COPD (Chronic Obstructive Pulmonary Disease) (DC) Activity/Diet/Wound Care/Special Instructions: Please see your PCP. You will need palliative care. Discharge Disposition: HOME WITH HOME HEALTH SERVICES
== END 2024-08-23 13:40 | disposition home health service (06) | DRG 291 ==
LOC: EC 17:03 → 5NMEDONC 19:50
PROVIDERS: ADMIT Internal Medicine; ATTEND Internal Medicine
DX: I11.0 Hypertensive heart disease with heart failure (principal); I50.23 Acute on chronic systolic (congestive) heart failure; J96.21 Acute and chronic respiratory failure with hypoxia; J44.1 Chronic obstructive pulmonary disease with (acute) exacerbation; E86.1 Hypovolemia; L89.221 Pressure ulcer of left hip, stage 1; Z99.81 Dependence on supplemental oxygen; F32.A Depression, unspecified; F10.11 Alcohol abuse, in remission; D64.9 Anemia, unspecified; E87.1 Hypo-osmolality and hyponatremia; I25.2 Old myocardial infarction; K21.9 Gastro-esophageal reflux disease without esophagitis; F43.10 Post-traumatic stress disorder, unspecified; F40.240 Claustrophobia; I25.10 Atherosclerotic heart disease of native coronary artery without angina pectoris; D72.829 Elevated white blood cell count, unspecified; G89.29 Other chronic pain; M25.512 Pain in left shoulder; R53.81 Other malaise; R26.2 Difficulty in walking, not elsewhere classified; R45.1 Restlessness and agitation; Z53.29 Procedure and treatment not carried out because of patient's decision for other reasons; E78.5 Hyperlipidemia, unspecified; Z79.02 Long term (current) use of antithrombotics/antiplatelets; Z79.1 Long term (current) use of non-steroidal anti-inflammatories (NSAID); Z79.51 Long term (current) use of inhaled steroids; Z79.82 Long term (current) use of aspirin; Z79.899 Other long term (current) drug therapy; Z86.0100 Personal history of colon polyps, unspecified; Z86.711 Personal history of pulmonary embolism; Z87.442 Personal history of urinary calculi; Z87.891 Personal history of nicotine dependence; Z95.5 Presence of coronary angioplasty implant and graft; Z11.52 Encounter for screening for COVID-19; Z86.69 Personal history of other diseases of the nervous system and sense organs; Z88.1 Allergy status to other antibiotic agents; Z88.8 Allergy status to other drugs, medicaments and biological substances
CPT/HCPCS: 36415; 71046; 73502; 80048; 80053; 83690; 83735; 83880; 85025; 85027; 87636; 93005; 94640; 94760; 99285

== ENCOUNTER 2024-08-24 19:15 | Inpatient (IN) | payer OTHER, MEDICARE ==
--- NOTE | 2024-08-24 20:16 | ED ---
Fall HPI - General Chief Complaint: Fall Stated Complaint: Back pain Time Seen by Provider: 08/24/24 19:30 Source: EMS Mode of arrival: EMS - History of Present Illness Initial Comments: 79-year-old male presenting for evaluation post fall. Patient states that yesterday he was turning around when he lost his balance and fell hitting his head. He has a hematoma to the right parietal region of the head. He denies any loss of consciousness. Patient is on warfarin. He comes in today because he is having headache around his hematoma and some lower back pain. He reports that he is having some numbness in his feet. No loss of bowel or bladder control or saddle paresthesia. Patient is hypoxic on room air today, he reports that he periodically wears oxygen at home but mainly at bedtime. He denies any nausea or vomiting. No chest pain or difficulty breathing. No abdominal pain. Denies dizziness. Denies vision or hearing changes. - Related Data Home Medications Medication Instructions Recorded Confirmed Aspirin EC [Ecotrin Low Dose] 81 mg PO DAILY 06/22/18 08/25/24 Budesonide/Formoterol Fumarate 2 puff INHALATION RT-BID 06/22/18 08/25/24 [Symbicort 160-4.5 Mcg Inhaler] Ipratropium/Albuterol Sulfate 1 puff INHALATION RT-QID 06/22/18 08/25/24 [Combivent Respimat Inhaler] Metoprolol Tartrate [Lopressor] 25 mg PO BID 06/22/18 08/25/24 Clopidogrel Bisulfate [Plavix] 75 mg PO DAILY 07/01/18 08/25/24 Albuterol Inhaler [Ventolin Hfa 2 puff INHALATION RT-TID PRN 12/07/19 08/25/24 Inhaler] Albuterol Nebulized [Ventolin 2.5 mg INHALATION RT-QID 12/07/19 08/25/24 Nebulized] Loratadine [Claritin] 10 mg PO DAILY 12/07/19 08/25/24 Simvastatin [Zocor] 40 mg PO HS 12/07/19 08/25/24 Tiotropium 18 Mcg/Puff [Spiriva] 2 puff INHALATION RT-DAILY 12/07/19 08/25/24 Cholecalciferol [Vitamin D3 (25 25 mcg PO BID 03/17/24 08/25/24 Mcg = 1000 Iu)] Furosemide [Lasix] 40 mg PO DAILY 04/16/24 08/25/24 HYDROcodone/APAP 5-325MG [Solomons 1 tab PO TID PRN 07/28/24 08/25/24 5-325] Meloxicam [Mobic] 7.5 mg PO DAILY 07/28/24 08/25/24 Ondansetron Odt [Zofran ODT] 4 mg PO Q8HR PRN 07/28/24 08/25/24 Previous Rx's Medication Instructions Recorded Spironolactone [Aldactone] 25 mg PO DAILY #90 tab 06/24/24 Ferrous Sulfate [Iron (65 MG 325 mg PO W/LUNCH 14 Days #14 tab 08/04/24 Elemental)] Folic Acid 1 mg PO DAILY 14 Days #14 tab 08/04/24 Ascorbic Acid [Vitamin C] 1,000 mg PO W/LUNCH #90 tab 08/23/24 predniSONE [Deltasone] 40 mg PO DAILY #6 tab 08/23/24 Allergies Allergy/AdvReac Type Severity Reaction Status Date / Time fluticasone AdvReac Nausea Verified 08/25/24 10:27 [From [facility]] levofloxacin [From Levaquin] AdvReac TENDON PAIN Verified 08/25/24 10:27 salmeterol AdvReac Nausea Verified 08/25/24 10:27 [From [facility]] Review of Systems ROS Statement: Those systems with pertinent positive or pertinent negative responses have been documented in the HPI. ROS Other: All systems not noted in ROS Statement are negative. Past Medical History Past Medical History: Coronary Artery Disease (CAD), COPD, GERD/Reflux, Hyperlipidemia, Hypertension, Myocardial Infarction (PA), Pulmonary Embolus (PE), Renal Disease Additional Past Medical History / Comment(s): home O2 (3L [place] HS), bilateral PEs in 2003, history ETOH abuse - pt states he has never had withdrawal symptoms, chronic low back pain/sciatica/spurs/disc disease - much improved after back injections, past urinary retention, diverticulitis/benign colon polyps removed, nephrolithiasis - passed stones on his own, shingelles 16 years ago - R shoulder. Last Myocardial Infarction Date:: 2010 History of Any Multi-Drug Resistant Organisms: None Reported Past Surgical History: Heart Catheterization With Stent Additional Past Surgical History / Comment(s): back injections for pain, piece of metal removed from right eye, EGD, colonoscopy Past Anesthesia/Blood Transfusion Reactions: No Reported Reaction Additional Past Anesthesia/Blood Transfusion Reaction / Comment(s): claustrophobia Date of Last Stent Placement:: 2010 Past Psychological History: Anxiety, Depression, PTSD Smoking Status: Former smoker Past Alcohol Use History: None Reported Past Drug Use History: None Reported - Past Family History Mother Family Medical History: Cancer Additional Family Medical History / Comment(s): from breast cancer at age 53. Father Family Medical History: Coronary Artery Disease (CAD), Myocardial Infarction (PA) Additional Family Medical History / Comment(s): 4 MIs/CABG. at age 72. General Exam Limitations: no limitations General appearance: alert, in no apparent distress Head exam: Present: normocephalic Expanded Head exam: Present: hematoma (Right parietal scalp) Eye exam: Present: normal appearance, PERRL, EOMI. Absent: periorbital swelling Neck exam: Present: normal inspection. Absent: meningismus Respiratory exam: Present: normal lung sounds bilaterally. Absent: respiratory distress, wheezes, rales, rhonchi, stridor Cardiovascular Exam: Present: regular rate, normal rhythm, normal heart sounds. Absent: systolic murmur, diastolic murmur, rubs, gallop, clicks Neurological exam: Present: alert, oriented X3 Expanded Eye Response: (4) open spontaneously Motor Response: (6) obeys commands Verbal Response: (5) oriented [place] Total: 15 Psychiatric exam: Present: normal affect, normal mood Course Vital Signs 08/24/24 08/24/24 08/25/24 19:21 21:04 02:00 Temperature 97.4 F L 98.3 F Pulse Rate 95 93 Pulse Rate [ 109 H Wholesale Representative ] Respiratory 18 16 13 Rate Blood Pressure 115/58 126/70 Blood Pressure 99/62 [Right Arm Left Lateral] O2 Sat by Pulse 88 L 99 99 Oximetry Medical Decision Making - Medical Decision Making Was pt. sent in by a medical professional or institution (, PA, POLICE SHIFT COMMANDER, urgent care, hospital, or half-way...) When possible be specific @ -No Did you speak to anyone other than the patient for history (EMS, parent, family, police, friend...)? What history was obtained from this source @ -No Did you review nursing and triage notes (agree or disagree)? Why? @ -I reviewed and agree with nursing and triage notes Were old charts reviewed (outside hosp., previous admission, EMS record, old EKG, old radiological studies, urgent care reports/EKG's, half-way records)? Report findings @ -Reviewed the patient's last admission Differential Diagnosis (chest pain, altered mental status, abdominal pain women, abdominal pain men, vaginal bleeding, weakness, fever, dyspnea, syncope, headache, dizziness, GI bleed, back pain, seizure, CVA, palpatations, mental health, musculoskeletal)? @ -Differential Musculoskeletal Muscular strain, contusion, ligament sprain, fracture, arthritis, septic arthritis, bursitis, cellulitis, muscle spasm, nerve compression, DVT, arterial occlusion, herpes zoster, electrolyte abnormality, tumor.... This is not meant to be in all inclusive list EKG interpreted by me (3pts min.). @ -As above X-rays interpreted by me (1pt min.). @ -Lumbar spine x-ray shows no acute fracture. Moderate multilevel disc degeneration Chest x-ray shows no acute cardiopulmonary disease/process CT interpreted by me (1pt min.). @ -CT shows no acute intracranial process. Right scalp subcutaneous edema. No evidence of fracture. No evidence of cervical spine fracture. Mild multilevel degenerative disc disease U/S interpreted by me (1pt. min.). @ -None done What testing was considered but not performed or refused? (CT, X-rays, U/S, labs)? Why? @ -None What meds were considered but not given or refused? Why? @ -None Did you discuss the management of the patient with other professionals (professionals i.e. , PA, POLICE SHIFT COMMANDER, lab, RT, psych nurse, social sciences chair, patient care specialist, teacher, community services officer, case manager specialist)? Give summary @ -Discussed this patient with Dr. Dale accepts admission Was smoking cessation discussed for >3mins.? @ -No Was critical care preformed (if so, how long)? @ -No Were there social determinants of health that impacted care today? How? (Homelessness, low income, unemployed, alcoholism, drug addiction, transportation, low edu. Level, literacy, decrease access to med. care, prison, rehab)? @ -No Was there de-escalation of care discussed even if they declined (Discuss DNR or withdrawal of care, Hospice)? DNR status @ -No What co-morbidities impacted this encounter? (DM, HTN, Smoking, COPD, CAD, Cancer, CVA, ARF, Chemo, Hep., AIDS, mental health diagnosis, sleep apnea, morbid obesity)? @ -None Was patient admitted / discharged? Hospital course, mention meds given and route, prescriptions, significant lab abnormalities, going to OR and other pertinent info. @ -79-year-old male presenting for evaluation after a fall at home yesterday. Code coag was called prior to my evaluation of the patient as he is on warfarin and did hit his head. I then performed the history and physical examination. Patient is complaining of back pain. He also states that his feet are numb. The patient does have an elevated lactic acid of 3.8 and elevated troponin of 0.110. These appear consistent with the patient's baseline. Troponin is improved from most recent of 0.186 on 08/03/2024. He is having no chest pain or difficulty breathing. Does not appear consistent with ACS. Negative for influenza, RSV, COVID. Chest x-ray shows no acute process. Lumbar spine shows no acute fracture. No acute fracture or acute intracranial process seen on CT of the brain, cervical spine, and facial bones. Patient states that he cannot walk and cannot go home as he cannot care for himself. He has been admitted here multiple occasions for similar. Patient will be admitted for possible rehab placement. He is agreeable with this plan. I discussed this case with my attending Dr. Geller Undiagnosed new problem with uncertain prognosis? @ -No Drug Therapy requiring intensive monitoring for toxicity (Heparin, Nitro, Insulin, Cardizem)? @ -No Were any procedures done? @ -No Diagnosis/symptom? @ -Gravely disabled Acute, or Chronic, or Acute on Chronic? @ -Acute on chronic Uncomplicated (without systemic symptoms) or Complicated (systemic symptoms)? @ -Complicated Side effects of treatment? @ -No Exacerbation, Progression, or Severe Exacerbation? @ -No Poses a threat to life or bodily function? How? (Chest pain, USA, PA, pneumonia, PE, COPD, DKA, ARF, appy, cholecystitis, CVA, Diverticulitis, Homicidal, Suicidal, threat to staff... and all critical care pts) @ -Yes - Lab Data Result diagrams: 08/25/24 06:39 08/24/24 20:25 Lab Results 08/24/24 08/24/24 08/24/24 Range/Units 20:25 20:25 20:25 WBC 10.15 H (4.50-10.00) 10*3/uL RBC 3.45 L (4.40-5.60) 10*6/uL Hgb 10.2 L (13.0-17.0) g/dL Hct 29.4 L (39.6-50.0) % MCV 85.2 (80.0-97.0) fL MCH 29.6 (27.0-32.0) pg MCHC 34.7 (32.0-37.0) g/dL Plt Count 280 (140-440) 10*3/uL MPV 8.9 L (9.5-12.2) fL Immature Gran % (Auto) 4.8 % Neutrophils % 79.2 % Lymphocytes % 7.9 % Monocytes % 7.8 % Eosinophils % 0.0 % Basophils % 0.3 % Immature Gran # 0.49 H (0.00-0.04) 10*3/uL Neutrophils # 8.04 H (1.80-7.70) 10*3/uL Lymphocytes # 0.80 L (0.90-5.00) 10*3/uL Monocytes # 0.79 (0.20-1.00) 10*3/uL Eosinophils # 0.00 L (0.04-0.35) 10*3/uL Basophils # 0.03 (0.00-0.10) 10*3/uL PT 10.5 (10.0-12.5) sec INR 0.9 (<1.2) APTT 18.3 L (22.0-30.0) sec Sodium 132 L (137-145) mmol/L Potassium 3.6 (3.5-5.1) mmol/L Chloride 92 L (98-107) mmol/L Carbon Dioxide 32 H (22-30) mmol/L Anion Gap 8 mmol/L BUN 25 H (9-20) mg/dL Creatinine 0.95 (0.66-1.25) mg/dL Est GFR (CKD-EPI)AfAm 89 (>60 ml/min/1.73 sqM) Est GFR (CKD-EPI)NonAf 77 (>60 ml/min/1.73 sqM) Glucose 172 H (74-99) mg/dL Lactic Ac Sepsis Rflx Plasma Lactic Acid Sandor (0.7-2.0) mmol/L Calcium 9.2 (8.4-10.2) mg/dL Magnesium 2.1 (1.6-2.3) mg/dL Total Bilirubin 0.8 (0.2-1.3) mg/dL AST 26 (17-59) U/L ALT 28 (4-49) U/L Alkaline Phosphatase 86 (38-126) U/L Troponin I (0.000-0.034) ng/mL Total Protein 5.6 L (6.3-8.2) g/dL Albumin 3.2 L (3.5-5.0) g/dL Influenza Type A (PCR) (Not Detectd) Influenza Type B (PCR) (Not Detectd) RSV (PCR) (Not Detectd) SARS-CoV-2 (PCR) (Not Detectd) 08/24/24 08/24/24 08/24/24 Range/Units 20:25 20:25 20:25 WBC (4.50-10.00) 10*3/uL RBC (4.40-5.60) 10*6/uL Hgb (13.0-17.0) g/dL Hct (39.6-50.0) % MCV (80.0-97.0) fL MCH (27.0-32.0) pg MCHC (32.0-37.0) g/dL Plt Count (140-440) 10*3/uL MPV (9.5-12.2) fL Immature Gran % (Auto) % Neutrophils % % Lymphocytes % % Monocytes % % Eosinophils % % Basophils % % Immature Gran # (0.00-0.04) 10*3/uL Neutrophils # (1.80-7.70) 10*3/uL Lymphocytes # (0.90-5.00) 10*3/uL Monocytes # (0.20-1.00) 10*3/uL Eosinophils # (0.04-0.35) 10*3/uL Basophils # (0.00-0.10) 10*3/uL PT (10.0-12.5) sec INR (<1.2) APTT (22.0-30.0) sec Sodium (137-145) mmol/L Potassium (3.5-5.1) mmol/L Chloride (98-107) mmol/L Carbon Dioxide (22-30) mmol/L Anion Gap mmol/L BUN (9-20) mg/dL Creatinine (0.66-1.25) mg/dL Est GFR (CKD-EPI)AfAm (>60 ml/min/1.73 sqM) Est GFR (CKD-EPI)NonAf (>60 ml/min/1.73 sqM) Glucose (74-99) mg/dL Lactic Ac Sepsis Rflx Plasma Lactic Acid Sandor 3.8 H* (0.7-2.0) mmol/L Calcium (8.4-10.2) mg/dL Magnesium (1.6-2.3) mg/dL Total Bilirubin (0.2-1.3) mg/dL AST (17-59) U/L ALT (4-49) U/L Alkaline Phosphatase (38-126) U/L Troponin I 0.110 H* (0.000-0.034) ng/mL Total Protein (6.3-8.2) g/dL Albumin (3.5-5.0) g/dL Influenza Type A (PCR) Not Detected (Not Detectd) Influenza Type B (PCR) Not Detected (Not Detectd) RSV (PCR) Not Detected (Not Detectd) SARS-CoV-2 (PCR) Not Detected (Not Detectd) 08/24/24 Range/Units 20:52 WBC (4.50-10.00) 10*3/uL RBC (4.40-5.60) 10*6/uL Hgb (13.0-17.0) g/dL Hct (39.6-50.0) % MCV (80.0-97.0) fL MCH (27.0-32.0) pg MCHC (32.0-37.0) g/dL Plt Count (140-440) 10*3/uL MPV (9.5-12.2) fL Immature Gran % (Auto) % Neutrophils % % Lymphocytes % % Monocytes % % Eosinophils % % Basophils % % Immature Gran # (0.00-0.04) 10*3/uL Neutrophils # (1.80-7.70) 10*3/uL Lymphocytes # (0.90-5.00) 10*3/uL Monocytes # (0.20-1.00) 10*3/uL Eosinophils # (0.04-0.35) 10*3/uL Basophils # (0.00-0.10) 10*3/uL PT (10.0-12.5) sec INR (<1.2) APTT (22.0-30.0) sec Sodium (137-145) mmol/L Potassium (3.5-5.1) mmol/L Chloride (98-107) mmol/L Carbon Dioxide (22-30) mmol/L Anion Gap mmol/L BUN (9-20) mg/dL Creatinine (0.66-1.25) mg/dL Est GFR (CKD-EPI)AfAm (>60 ml/min/1.73 sqM) Est GFR (CKD-EPI)NonAf (>60 ml/min/1.73 sqM) Glucose (74-99) mg/dL Lactic Ac Sepsis Rflx Y Plasma Lactic Acid Sandor (0.7-2.0) mmol/L Calcium (8.4-10.2) mg/dL Magnesium (1.6-2.3) mg/dL Total Bilirubin (0.2-1.3) mg/dL AST (17-59) U/L ALT (4-49) U/L Alkaline Phosphatase (38-126) U/L Troponin I (0.000-0.034) ng/mL Total Protein (6.3-8.2) g/dL Albumin (3.5-5.0) g/dL Influenza Type A (PCR) (Not Detectd) Influenza Type B (PCR) (Not Detectd) RSV (PCR) (Not Detectd) SARS-CoV-2 (PCR) (Not Detectd) Disposition Clinical Impression: Gravely disabled Disposition: ADMITTED IP TO THIS HOSP Condition: Fair Time of Disposition: 22:07
[2024-08-24 20:33] LABS: Basophils # (A) 0.03 10*3/uL (0.00-0.10); Basophils % (A) 0.3 %; HCT 29.4 % (39.6-50.0); HGB 10.2 g/dL (13.0-17.0); Lymphocytes % (A) 7.9 %; MCH 29.6 pg (27.0-32.0); MCHC 34.7 g/dL (32.0-37.0); MCV 85.2 fL (80.0-97.0); Mean Platelet Volume 8.9 fL (9.5-12.2); Monocytes # (A) 0.79 10*3/uL (0.20-1.00); Monocytes % (A) 7.8 %; Neutrophils # (A) 8.04 10*3/uL (1.80-7.70); Neutrophils % (A) 79.2 %; Platelet Count 280 10*3/uL (140-440); RBC 3.45 10*6/uL (4.40-5.60); RDW 15.8 % (11.5-14.5); WBC 10.15 10*3/uL (4.50-10.00)
--- NOTE | 2024-08-24 20:35 | CT ---
EXAMINATION TYPE: CT brain cspine wo con, CT facial bones wo con DATE OF EXAM: 08/24/2024 7:54 PM COMPARISON: 08/03/2024. CLINICAL INDICATION: Male, 79 years old with history of fall, back pain; Code Coag. Fall on thinners. No LOC., pain TECHNIQUE: Brain: Multiple axial CT images of the brain were obtained without IV contrast. Cspine: Axial CT images from the skull base to the inferior aspect of T2 we obtained without intraven ous contrast. Coronal and sagittal reformatted images were also reviewed. Facial: Axial imaging of the facial structures with sagittal and coronal reformats. CT DLP: Combined DLP of 1361.4 mGycm, Automated exposure control for dose reduction was used. FINDINGS: Brain: Extra-axial spaces: No abnormal extra-axial fluid collections. Ventricular system: Dilatation in proportion to cerebral atrophy. Cerebral parenchyma: Cerebral atrophy. No acute intraparenchymal hemorrhage or mass effect. The meyer -white junction is well differentiated. Scattered hypoattenuating areas are seen within the white mat ter. Cerebellum: Unremarkable. Mass effect: No evidence of midline shift. Intracranial vasculature: Atherosclerotic calcifications of the intracranial vessels. Soft tissues: Subcutis edema involving the right scalp Calvarium/osseous structures: No depressed skull fracture. Paranasal sinuses and mastoid air cells: Mild scattered mucosal thickening and or secretions. Visualized orbits: Orbital contents are intact. Cervical spine: Fracture: None. Osseous structures: Multilevel degenerative disc disease changes with endplate spurring and disc oste ophyte complex's. Vertebral alignment: Within normal limits. Spinal canal/Neural Foramina: No evidence of significant spinal canal narrowing. No evidence for sign ificant neural foraminal stenosis. Neck soft tissues: Prevertebral soft tissues are within normal limits. Other: The airway is patent. Centrilobular emphysema changes in lung apices. Facial:There is no evidence of fracture, subluxation, dislocation, or significant soft tissue swellin g. The orbital contents are unremarkable.The temporal-mandibular joints appear symmetric. The visuali zed portion of the paranasal sinuses appear clear. IMPRESSION: 1. No acute intracranial process. 2. Right scalp subcutaneous edema. No evidence or fracture. 3. No evidence of cervical spine fracture. 4. Mild multilevel degenerative disc disease. [facility], , 08/24/2024 8:33 PM
--- NOTE | 2024-08-24 20:43 | XR ---
EXAMINATION TYPE: XR chest 2V DATE OF EXAM: 08/24/2024 8:37 PM COMPARISON: Chest radiographs from 08/19/2024 CLINICAL INDICATION: Male, 79 years old with history of difficulty breathing; TECHNIQUE: XR chest 2V Frontal and lateral views of the chest. FINDINGS: Lungs/Pleura: There is no evidence of pleural effusion, focal consolidation, or pneumothorax. Pulmonary vascularity: Unremarkable. Heart/mediastinum: Cardiomediastinal silhouette is unremarkable. Musculoskeletal: No acute osseous pathology. Other findings: None IMPRESSION: No acute cardiopulmonary disease/process. [facility], , 08/24/2024 8:40 PM
[2024-08-24 20:45] LABS: ALT 28 U/L (4-49); AST 26 U/L (17-59); African American GFR (CKD) 89 (>60 ml/min/1.73 sqM); Albumin 3.2 g/dL (3.5-5.0); Alkaline Phosphatase 86 U/L (38-126); Anion Gap 8 mmol/L; Blood Urea Nitrogen 25 mg/dL (9-20); Calcium 9.2 mg/dL (8.4-10.2); Carbon Dioxide 32 mmol/L (22-30); Chloride 92 mmol/L (98-107); Glucose 172 mg/dL (74-99); Magnesium 2.1 mg/dL (1.6-2.3); Non-African American GFR(CKD) 77 (>60 ml/min/1.73 sqM); Potassium 3.6 mmol/L (3.5-5.1); Sodium 132 mmol/L (137-145); Total Bilirubin 0.8 mg/dL (0.2-1.3); Total Protein 5.6 g/dL (6.3-8.2)
[2024-08-24 20:53] LABS: INR 0.9 (<1.2); Prothrombin Time 10.5 sec (10.0-12.5)
[2024-08-24 20:55] LABS: Partial Thromboplastin Time 18.3 sec (22.0-30.0)
[2024-08-24] MEDS: HYDROcodone/APAP 10-325MG 1 EACH TAB PO ONE (21:06)
[2024-08-24 21:08] LABS: Influenza A Not Detected (Not Detectd); Influenza B Not Detected (Not Detectd); RSV Not Detected (Not Detectd)
--- NOTE | 2024-08-24 21:16 | XR ---
EXAMINATION TYPE: XR lumbar spine 2 or 3V DATE OF EXAM: 08/24/2024 8:42 PM COMPARISON: None CLINICAL INDICATION: Male, 79 years old with history of pain; PHH, pain TECHNIQUE: XR lumbar spine 2 or 3V - Frontal, lateral and coned in L5-S1 lateral views of the spine. FINDINGS: No evidence of any acute osseous pathology. No evidence of loss of vertebral body height i s seen. There is normal alignment of the lumbar vertebral bodies. Scattered disc space narrowing. Mul tilevel marginal osteophyte formation throughout the visualized spine. There is facet joint arthropat hy throughout the spine. Scattered at least mild neural foraminal stenosis. Moderate IMPRESSION: 1. No acute fracture. 2. Moderate multilevel disc degeneration. [facility], , 08/24/2024 9:14 PM
[2024-08-24] MEDS ORDERED: NALOXONE 0.4 MG/ML 1 ML VIAL IV PRN (22:05)
[2024-08-24] MEDS ORDERED: ACETAMINOPHEN TAB 325 MG TAB PO PRN (22:05)
--- NOTE | 2024-08-25 03:15 | P.HPIM ---
History of Present Illness H&P Date: 08/24/24 79-year-old male with COPD on 3 L of oxygen at night, systolic CHF with left ventricular ejection fraction of 40%, coronary artery disease with history of stents hypertension and diabetes mellitus Patient has multiple hospital admissions over the past couple months for different reasons usually due to COPD exacerbation or fluid overload. Patient was just discharged from the hospital yesterday where he was treated for COPD exacerbation Today he is coming in after sustaining a fall at home he reports that he was with his neighbor when suddenly passed out and fell to the ground hitting his head resulting in some bleeding he is not sure if he had some loss of consciousness he does not report any seizure-like activity but he seems to be confused about all the events. At time of my evaluation he was in bed shaking reporting that he feels very tired and weak, patient lives alone and requesting placement at rehab as he is unable to take care of himself anymore Otherwise he denies any coughing fevers chills denies any shortness of breath chest pain nausea vomiting abdominal pain changes in bowel or urinary habits review of systems Pertinent positives as noted in HPI. All other systems were reviewed and are negative on exam Constitutional: No acute distress, cooperative, patient is shaking in bed Eyes: Anicteric sclerae, moist conjunctiva, Pupils equal round reactive to light ENMT: Abrasion over the right side of the forehead with dried blood Oropharynx clear, no erythema, or exudates Neck: Supple, no masses, or JVD No carotid bruits No thyromegaly Lungs: Clear to auscultation Clear to percussion Normal respiratory effort, no accessory muscle use Cardiovascular: Heart regular in rate and rhythm, No murmurs, gallops, or rubs +1 left leg edema Abdominal: Soft Nontender, no guarding, rebound or rigidity Abdomen moving with respiration Normoactive bowel sounds Extremities: No digital cyanosis No clubbing Pedal pulses intact and symmetrical Radial pulses intact and symmetrical Patient has tenderness to palpation of the left leg Psychiatric: Alert and oriented to person, place and time Neuro Muscles Strength 4/5 in all 4 extremities Sensation to light touch grossly present throughout Cranial nerves II-XII grossly intact Past Medical History Past Medical History: Coronary Artery Disease (CAD), COPD, GERD/Reflux, Hyperlipidemia, Hypertension, Myocardial Infarction (PR), Pulmonary Embolus (PE), Renal Disease Additional Past Medical History / Comment(s): home O2 (3L [place] HS), bilateral PEs in 2003, history ETOH abuse - pt states he has never had withdrawal symptoms, chronic low back pain/sciatica/spurs/disc disease - much improved after back injections, past urinary retention, diverticulitis/benign colon polyps removed, nephrolithiasis - passed stones on his own, shingelles 16 years ago - R shoulder. Last Myocardial Infarction Date:: 2010 History of Any Multi-Drug Resistant Organisms: None Reported Past Surgical History: Heart Catheterization With Stent Additional Past Surgical History / Comment(s): back injections for pain, piece of metal removed from right eye, EGD, colonoscopy Past Anesthesia/Blood Transfusion Reactions: No Reported Reaction Additional Past Anesthesia/Blood Transfusion Reaction / Comment(s): claustrophobia Date of Last Stent Placement:: 2010 Past Psychological History: Anxiety, Depression, PTSD Additional Psychological History / Comment(s): Pt states he lives alone, spouse and children are . Smoking Status: Former smoker Past Alcohol Use History: None Reported Additional Past Alcohol Use History / Comment(s): Pt started smoking in 1965 and quit in 2015. Past Drug Use History: None Reported - Past Family History Mother Family Medical History: Cancer Additional Family Medical History / Comment(s): from breast cancer at age 53. Father Family Medical History: Coronary Artery Disease (CAD), Myocardial Infarction (PR) Additional Family Medical History / Comment(s): 4 MIs/CABG. at age 72. Medications and Allergies Home Medications Medication Instructions Recorded Confirmed Type Aspirin EC [Ecotrin Low Dose] 81 mg PO DAILY 06/22/18 08/19/24 History Budesonide/Formoterol Fumarate 2 puff INHALATION RT-BID 06/22/18 08/19/24 History [Symbicort 160-4.5 Mcg Inhaler] Ipratropium/Albuterol Sulfate 1 puff INHALATION RT-QID 06/22/18 08/19/24 History [Combivent Respimat Inhaler] Metoprolol Tartrate [Lopressor] 25 mg PO BID 06/22/18 08/19/24 History Clopidogrel Bisulfate [Plavix] 75 mg PO DAILY 07/01/18 08/19/24 History Albuterol Inhaler [Ventolin Hfa 2 puff INHALATION RT-TID PRN 12/07/19 08/19/24 History Inhaler] Albuterol Nebulized [Ventolin 2.5 mg INHALATION RT-QID 12/07/19 08/19/24 History Nebulized] Loratadine [Claritin] 10 mg PO DAILY 12/07/19 08/19/24 History Simvastatin [Zocor] 40 mg PO HS 12/07/19 08/19/24 History Tiotropium 18 Mcg/Puff [Spiriva] 2 puff INHALATION RT-DAILY 12/07/19 08/19/24 History Cholecalciferol [Vitamin D3 (25 25 mcg PO BID 03/17/24 08/19/24 History Mcg = 1000 Iu)] Furosemide [Lasix] 40 mg PO DAILY 04/16/24 08/19/24 History Spironolactone [Aldactone] 25 mg PO DAILY #90 tab 06/24/24 08/19/24 Rx HYDROcodone/APAP 5-325MG [[place] 1 tab PO TID PRN 07/28/24 08/19/24 History 5-325] Meloxicam [Mobic] 7.5 mg PO DAILY 07/28/24 08/19/24 History Ondansetron Odt [Zofran ODT] 4 mg PO Q8HR PRN 07/28/24 08/19/24 History predniSONE See Taper PO DIRECTED 08/03/24 08/19/24 History Ferrous Sulfate [Iron (65 MG 325 mg PO W/LUNCH 14 Days #14 tab 08/04/24 08/19/24 Rx Elemental)] Folic Acid 1 mg PO DAILY 14 Days #14 tab 08/04/24 08/19/24 Rx Losartan [Cozaar] 12.5 mg PO DIRECTED 08/19/24 08/19/24 History Ascorbic Acid [Vitamin C] 1,000 mg PO W/LUNCH #90 tab 08/23/24 Rx predniSONE [Deltasone] 40 mg PO DAILY #6 tab 08/23/24 Rx Allergies Allergy/AdvReac Type Severity Reaction Status Date / Time fluticasone AdvReac Nausea Verified 08/19/24 19:55 [From [facility]] levofloxacin [From Levaquin] AdvReac TENDON PAIN Verified 08/19/24 19:55 salmeterol AdvReac Nausea Verified 08/19/24 19:55 [From [facility]] Physical Exam Vitals: Vital Signs Temp Pulse Pulse Resp BP BP Pulse Ox 08/25/24 02:00 98.3 F 109 H 13 99/62 99 08/24/24 21:04 93 16 126/70 99 08/24/24 19:21 97.4 F L 95 18 115/58 88 L Intake and Output 08/24/24 08/24/24 08/25/24 14:59 22:59 06:59 Other: Voiding Method Urinal Weight 113.398 kg Results CBC & Chem 7: 08/24/24 20:25 08/24/24 20:25 Labs: Abnormal Lab Results - Last 24 Hours (Table) 08/24/24 08/24/24 08/24/24 Range/Units 20:25 20:25 20:25 WBC 10.15 H (4.50-10.00) 10*3/uL RBC 3.45 L (4.40-5.60) 10*6/uL Hgb 10.2 L (13.0-17.0) g/dL Hct 29.4 L (39.6-50.0) % MPV 8.9 L (9.5-12.2) fL Immature Gran # 0.49 H (0.00-0.04) 10*3/uL Neutrophils # 8.04 H (1.80-7.70) 10*3/uL Lymphocytes # 0.80 L (0.90-5.00) 10*3/uL Eosinophils # 0.00 L (0.04-0.35) 10*3/uL APTT 18.3 L (22.0-30.0) sec Sodium 132 L (137-145) mmol/L Chloride 92 L (98-107) mmol/L Carbon Dioxide 32 H (22-30) mmol/L BUN 25 H (9-20) mg/dL Glucose 172 H (74-99) mg/dL Plasma Lactic Acid Sandor (0.7-2.0) mmol/L Troponin I (0.000-0.034) ng/mL Total Protein 5.6 L (6.3-8.2) g/dL Albumin 3.2 L (3.5-5.0) g/dL 08/24/24 08/24/24 08/24/24 Range/Units 20:25 20:25 23:16 WBC (4.50-10.00) 10*3/uL RBC (4.40-5.60) 10*6/uL Hgb (13.0-17.0) g/dL Hct (39.6-50.0) % MPV (9.5-12.2) fL Immature Gran # (0.00-0.04) 10*3/uL Neutrophils # (1.80-7.70) 10*3/uL Lymphocytes # (0.90-5.00) 10*3/uL Eosinophils # (0.04-0.35) 10*3/uL APTT (22.0-30.0) sec Sodium (137-145) mmol/L Chloride (98-107) mmol/L Carbon Dioxide (22-30) mmol/L BUN (9-20) mg/dL Glucose (74-99) mg/dL Plasma Lactic Acid Sandor 3.8 H* 2.4 H* (0.7-2.0) mmol/L Troponin I 0.110 H* (0.000-0.034) ng/mL Total Protein (6.3-8.2) g/dL Albumin (3.5-5.0) g/dL Thrombosis Risk Factor Assmnt - Choose All That Apply Any of the Below Risk Factors Present?: Yes Each Factor Represents 1 point: Abnormal pulmonary function (COPD) Other Risk Factors: Yes Each Risk Factor Represents 3 Points: Age 75 years or older, History of DVT/PE Other congenital or acquired thrombophilia - If yes, enter type in comment: No Thrombosis Risk Factor Assessment Total Risk Factor Score: 7 Thrombosis Risk Factor Assessment Level: High Risk Assessment and Plan Assessment: 79-year-old male with complex past medical history coming to the hospital for evaluation after sustaining a fall and head injury I discussed case with ED doctor and accepted the admission for possible placement with anticipated length of stay less than 2 midnights Head injury secondary to fall at home Cardiac monitoring Fall precautions Chest x-ray no acute cardiopulmonary process CT of the head and neck showed no acute intracranial process, there is right scalp edema subcutaneous no evidence of fracture no evidence of cervical spine fracture however multilevel degenerative disc disease Lumbosacral spine x-ray no acute fractures again moderate multilevel disc deg enerative disease Pain control PT/OT evaluation loft worker apprentice consult for possible placement Local wound care to the scalp l abrasion Lactic acidosis resolved Continue with gentle IV fluid hydration Chronically elevated troponin Troponin level 0.110 which is flat compared to before Left leg edema and pain Rule out DVT Check D-dimer Check venous Doppler ultrasound of the left lower extremity Patient has history of venous thromboembolism in the past currently not on any blood thinners Chronic conditions Chronic hypoxic respiratory failure COPD on home oxygen compensated Continue home inhalers Diabetes mellitus Insulin sliding scale, A1c 7.1 Chronic anemia Denies any GI bleeding Continue to monitor Hemoglobin 10.2 Chronic systolic congestive heart failure compensated, left ventricular ejection fraction 40% Continue home medications DVT prophylaxis heparin subcu 3 times daily 5000 units GI prophylaxis Protonix 40 mg daily p.o. Renal function overall unremarkable with BUN of 25 creatinine 0.95 Acute respiratory viral panel negative for influenza, RSV, COVID
[2024-08-25] MEDS ORDERED: DEXTROSE 50% SYRINGE 50 ML IVP PRN ×2 (03:18)
[2024-08-25] MEDS ORDERED: HEPARIN SODIUM 1,000 UN/ML (10ML VL) IV PRN (04:54)
[2024-08-25] MEDS: HEPARIN SOD,PORK IN 0.45% NACL 25,000 UNIT in 0.45% NACL 1 250ML.BAG IV SCH (05:17)
[2024-08-25] MEDS: HEPARIN SODIUM 1,000 UN/ML (10ML VL) IV ONE (05:17)
[2024-08-25] MEDS: HYDROcodone/APAP 5-325MG 1 EACH TAB PO PRN (05:30)
[2024-08-25 06:16] LABS: Glucose,Whole Blood 126 mg/dL (70-110)
[2024-08-25] MEDS: INSULIN LISPRO (HumaLOG) 100 UNIT/ML 10 mL VL SQ SCH (06:25)
[2024-08-25] MEDS: PANTOPRAZOLE 40 MG TABLET PO SCH (06:50)
[2024-08-25 07:02] LABS: HCT 29.8 % (39.6-50.0); MCH 29.2 pg (27.0-32.0); MCHC 33.6 g/dL (32.0-37.0); MCV 87.1 fL (80.0-97.0); Mean Platelet Volume 8.8 fL (9.5-12.2); Platelet Count 290 10*3/uL (140-440); RBC 3.42 10*6/uL (4.40-5.60); RDW 15.7 % (11.5-14.5); WBC 10.24 10*3/uL (4.50-10.00)
[2024-08-25 07:15] LABS: Prothrombin Time 11.1 sec (10.0-12.5)
[2024-08-25 07:34] LABS: Partial Thromboplastin Time 176.2 sec (22.0-30.0)
[2024-08-25] MEDS ORDERED: HEPARIN SODIUM,PORCINE 5,000 UNIT/ML 1 ML VIAL SQ SCH (08:00)
[2024-08-25 08:12] LABS: Lymphocytes # (M) 1.64 k/uL (1.0-4.8); Monocytes # (M) 0.41 k/uL (0-1.0); Neutrophils # (M) 8.19 k/uL (1.3-7.7); Neutrophils % (M) 80 %; Nucleated Red Blood Cells 0 /100 WBC (0-0); Total Cells Counted 100
[2024-08-25] MEDS: SYMBICORT 160-4.5 MCG INHALER INHALATION SCH (08:25)
[2024-08-25] MEDS: TIOTROPIUM 2.5 MCG INHALER INHALATION SCH (08:25)
[2024-08-25] MEDS: ALBUTEROL NEBULIZED 2.5 MG/3 ML INHALATION SCH (08:25)
[2024-08-25] MEDS ORDERED: ASPIRIN 81 MG PO SCH (09:00)
[2024-08-25] MEDS: METOPROLOL TARTRATE 25 MG TAB PO SCH (09:20)
[2024-08-25] MEDS: LOSARTAN 25 MG TAB PO SCH ×2 (09:20→09:38)
[2024-08-25] MEDS: CLOPIDOGREL 75 MG TAB PO SCH (09:22)
[2024-08-25] MEDS: SPIRONOLACTONE 25 MG TAB PO SCH (09:22)
[2024-08-25] MEDS ORDERED: ALBUTEROL NEBULIZED 2.5 MG/3 ML INHALATION PRN (11:20)
[2024-08-25] MEDS: IPRATROPIUM-ALBUTEROL 3 ML NEB INHALATION SCH (11:26)
[2024-08-25 11:40] LABS: Glucose,Whole Blood 110 mg/dL (70-110)
--- NOTE | 2024-08-25 13:48 | P.PN ---
Subjective Progress Note Date: 08/25/24 Hospital Course: 79-year-old male with COPD on 3 L of oxygen at night, systolic CHF with left ventricular ejection fraction of 40%, coronary artery disease with history of stents hypertension and diabetes mellitus Patient has multiple hospital admissions over the past couple months for different reasons usually due to COPD exacerbation or fluid overload. Patient was just discharged from the hospital yesterday where he was treated for COPD exacerbation Today he is coming in after sustaining a fall at home he reports that he was with his neighbor when suddenly passed out and fell to the ground hitting his head resulting in some bleeding he is not sure if he had some loss of consciousness he does not report any seizure-like activity but he seems to be confused about all the events. At time of my evaluation he was in bed shaking reporting that he feels very tired and weak, patient lives alone and requesting placement at rehab as he is unable to take care of himself anymore Otherwise he denies any coughing fevers chills denies any shortness of breath chest pain nausea vomiting abdominal pain changes in bowel or urinary habits Pertinent positives and negatives as discussed above, a complete review of systems was performed and all other systems are negative. Subjective: Patient seen evaluated bedside. No events overnight. Vitals: Signs Reviewed Physical Exam: General: nontoxic, no distress, appears at stated age Derm: warm, dry, intact Head: Abrasion over the right side of the forehead with dried blood, normocephalic, symmetric Eyes: EOMI, anicteric sclera Mouth: no lip lesion, mucus membranes moist Cardiovascular: S1 S2 reg, no murmur, rubs, or gallops Lungs: CTA bilateral, no rhonchi, no rales, no accessory muscle use Abdominal: soft, non-tender to palpataion, no appreciable organomegaly Extremities: no gross muscle atrophy, 1+ left leg edema, no contractures, 4/5 strength in all extremities Neuro: Alert, Oriented, CNII-XII grossly intact, gait normal Psych: well appearing, appropriate affect Data Received Today: Pertinent Labs: Elevated D-dimer 5.15, APTT 176.2, CBC stable from yesterday displaying leukocytosis WBC 10.24, normocytic anemia at 10.0 Imaging: Venous Doppler ultrasound: Pending Assessment and Plan: Patient is a 79-year-old male with complex past medical history coming to the hospital for evaluation after sustaining a fall and head injury. #. Head injury secondary to fall at home #. Cardiac monitoring #. Fall precautions Chest x-ray no acute cardiopulmonary process CT of the head and neck showed no acute intracranial process, there is right scalp edema subcutaneous no evidence of fracture no evidence of cervical spine fracture however multilevel degenerative disc disease Lumbosacral spine x-ray no acute fractures again moderate multilevel disc degenerative disease Pain control Tylenol 650 mg p.o. Q's 6 hours as needed, [place] 5325 p.o. 3 times daily as needed Local wound care to the scalp for abrasion pattern layout worker consult for possible placement, patient has guardian PT/OT evaluation recommending subacute rehabilitation #. Chronically elevated troponin Troponin level 0.110 which is flat compared to before - No active chest pain #. Left leg edema and pain Rule out DVT Check D-dimer: Elevated at 5.15 Check venous Doppler ultrasound of the left lower extremity, patient having difficulty laying down due to shortness of breath Patient has history of venous thromboembolism in the past currently not on any blood thinners APTT elevated at 176.2, discontinue heparin drip until DVT is confirmed Chronic conditions: #. Chronic hypoxic respiratory failure #. COPD on home oxygen compensated: Continue home inhalers #. Diabetes mellitus: Insulin sliding scale, A1c 7.1 #. Chronic anemia: Denies any GI bleeding, continue to monitor, hemoglobin 10.2 #. Chronic systolic congestive heart failure compensated, left ventricular ejection fraction 40%: Continue home medications Resolved: Lactic acidosis DVT prophylaxis: Subcu heparin GI prophylaxis: Protonix 40 mg daily p.o. Anticipated discharge place: Pending clinical course Anticipated discharge time: Pending clinical course Ross Kwan MD PGY-1 IM Dictation was produced using [employer] dictation software. please excuse any grammatical, word or spelling errors. I have seen and evaluated the patient today. Discussed with the resident and agree with the residents finding and plan as documented in the resident's note. Changes highlighted in blue font. Objective - Vital Signs Vital signs: Vital Signs Temp 97.5 F L 08/25/24 06:20 Pulse 100 08/25/24 06:20 Resp 19 08/25/24 06:20 BP 112/70 08/25/24 06:20 Pulse Ox 95 08/25/24 06:20 FiO2 Intake & Output 08/24/24 08/25/24 08/25/24 18:59 06:59 18:59 Output Total 0 Balance 0 Weight 113.398 kg Output: Urine 0 Other: Voiding Method Urinal - Labs CBC & Chem 7: 08/25/24 06:39 08/24/24 20:25 Labs: Abnormal Lab Results - Last 24 Hours (Table) 08/24/24 08/24/24 08/24/24 Range/Units 20:25 20:25 20:25 WBC 10.15 H (4.50-10.00) 10*3/uL RBC 3.45 L (4.40-5.60) 10*6/uL Hgb 10.2 L (13.0-17.0) g/dL Hct 29.4 L (39.6-50.0) % RDW (11.5-14.5) % MPV 8.9 L (9.5-12.2) fL Immature Gran # 0.49 H (0.00-0.04) 10*3/uL Neutrophils # 8.04 H (1.80-7.70) 10*3/uL Lymphocytes # 0.80 L (0.90-5.00) 10*3/uL Eosinophils # 0.00 L (0.04-0.35) 10*3/uL APTT 18.3 L (22.0-30.0) sec D-Dimer (<0.60) mg/L FEU Sodium 132 L (137-145) mmol/L Chloride 92 L (98-107) mmol/L Carbon Dioxide 32 H (22-30) mmol/L BUN 25 H (9-20) mg/dL Glucose 172 H (74-99) mg/dL POC Glucose (mg/dL) (70-110) mg/dL Plasma Lactic Acid Sandor (0.7-2.0) mmol/L Troponin I (0.000-0.034) ng/mL Total Protein 5.6 L (6.3-8.2) g/dL Albumin 3.2 L (3.5-5.0) g/dL 08/24/24 08/24/24 08/24/24 Range/Units 20:25 20:25 23:16 WBC (4.50-10.00) 10*3/uL RBC (4.40-5.60) 10*6/uL Hgb (13.0-17.0) g/dL Hct (39.6-50.0) % RDW (11.5-14.5) % MPV (9.5-12.2) fL Immature Gran # (0.00-0.04) 10*3/uL Neutrophils # (1.80-7.70) 10*3/uL Lymphocytes # (0.90-5.00) 10*3/uL Eosinophils # (0.04-0.35) 10*3/uL APTT (22.0-30.0) sec D-Dimer (<0.60) mg/L FEU Sodium (137-145) mmol/L Chloride (98-107) mmol/L Carbon Dioxide (22-30) mmol/L BUN (9-20) mg/dL Glucose (74-99) mg/dL POC Glucose (mg/dL) (70-110) mg/dL Plasma Lactic Acid Sandor 3.8 H* 2.4 H* (0.7-2.0) mmol/L Troponin I 0.110 H* (0.000-0.034) ng/mL Total Protein (6.3-8.2) g/dL Albumin (3.5-5.0) g/dL 08/25/24 08/25/24 08/25/24 Range/Units 03:54 06:15 06:39 WBC 10.24 H (4.50-10.00) 10*3/uL RBC 3.42 L (4.40-5.60) 10*6/uL Hgb 10.0 L (13.0-17.0) g/dL Hct 29.8 L (39.6-50.0) % RDW 15.7 H (11.5-14.5) % MPV 8.8 L (9.5-12.2) fL Immature Gran # 0.63 H (0.00-0.04) 10*3/uL Neutrophils # (1.80-7.70) 10*3/uL Lymphocytes # (0.90-5.00) 10*3/uL Eosinophils # (0.04-0.35) 10*3/uL APTT (22.0-30.0) sec D-Dimer 5.15 H (<0.60) mg/L FEU Sodium (137-145) mmol/L Chloride (98-107) mmol/L Carbon Dioxide (22-30) mmol/L BUN (9-20) mg/dL Glucose (74-99) mg/dL POC Glucose (mg/dL) 126 H (70-110) mg/dL Plasma Lactic Acid Sandor (0.7-2.0) mmol/L Troponin I (0.000-0.034) ng/mL Total Protein (6.3-8.2) g/dL Albumin (3.5-5.0) g/dL
[2024-08-25] MEDS: FERROUS SULFATE 325 MG TAB PO SCH (14:16)
[2024-08-25] MEDS: ASCORBIC ACID 500 MG TAB PO SCH (14:16)
[2024-08-25 16:46] LABS: Glucose,Whole Blood 106 mg/dL (70-110)
[2024-08-25] MEDS: HEPARIN SODIUM,PORCINE 5,000 UNIT/ML 1 ML VIAL SQ SCH (17:42)
[2024-08-25] MEDS: ATORVASTATIN 20 MG TAB PO SCH (19:49)
[2024-08-25] MEDS: CHOLECALCIFEROL 25 MCG (1000 IU) TABLET PO SCH (19:49)
[2024-08-25 22:42] LABS: Glucose,Whole Blood 109 mg/dL (70-110)
[2024-08-26 05:06] LABS: African American GFR (CKD) >90 (>60 ml/min/1.73 sqM); Anion Gap 5 mmol/L; Blood Urea Nitrogen 16 mg/dL (9-20); Carbon Dioxide 35 mmol/L (22-30); Chloride 91 mmol/L (98-107); Glucose 84 mg/dL (74-99); Non-African American GFR(CKD) >90 (>60 ml/min/1.73 sqM); Potassium 3.8 mmol/L (3.5-5.1); Sodium 131 mmol/L (137-145)
[2024-08-26 06:11] LABS: Glucose,Whole Blood 86 mg/dL (70-110)
[2024-08-26] MEDS: FUROSEMIDE 40 MG TAB PO SCH (08:29)
[2024-08-26] MEDS: LORATADINE 10 MG TAB PO SCH (08:30)
[2024-08-26] MEDS: FOLIC ACID 1 MG TAB PO SCH (08:30)
[2024-08-26 10:17] LABS: HCT 29.6 % (39.6-50.0); HGB 9.2 g/dL (13.0-17.0); MCH 28.3 pg (27.0-32.0); MCHC 31.1 g/dL (32.0-37.0); MCV 91.1 FL (80.0-97.0); Mean Platelet Volume 9.2 FL (9.5-12.2); NRBC Per 100 WBC 0.04 X 10*3/uL (0.00-0.01); Platelet Count 305 X 10*3/uL (140-440); RBC 3.25 X 10*6/uL (4.40-5.60); RDW 15.8 % (11.5-14.5); WBC 8.69 X 10*3/uL (4.50-10.00)
[2024-08-26 10:53] LABS: Basophils # (M) 0 X 10*3/uL (0.00-0.10); Eosinophils # (M) 0.09 X 10*3/uL (0.04-0.35); Lymphocytes # (M) 0.35 X 10*3/uL (0.90-5.00); Metamyelocytes % 1 % (0-0); Monocytes # (M) 0.61 X 10*3/uL (0.20-1.00); Myelocytes % 3 % (0-0); Neutrophils # (M) 7.21 X 10*3/uL (1.80-7.70); Neutrophils % (M) 83 %; Nucleated Red Blood Cells 2 /100 WBCS; Promyelocytes # (M) 0.09 k/uL (0); Promyelocytes % 1 %
--- NOTE | 2024-08-26 11:45 | P.PN ---
Subjective Progress Note Date: 08/26/24 Hospital Course: 79-year-old male with COPD on 3 L of oxygen at night, systolic CHF with left ventricular ejection fraction of 40%, coronary artery disease with history of stents hypertension and diabetes mellitus. Patient has multiple hospital admissions over the past couple months for different reasons usually due to COPD exacerbation or fluid overload. Patient was just discharged from the hospital yesterday where he was treated for COPD exacerbation. Today he is coming in after sustaining a fall at home he reports that he was with his neighbor when suddenly passed out and fell to the ground hitting his head resulting in some bleeding he is not sure if he had some loss of consciousness he does not report any seizure-like activity but he seems to be confused about all the events. At time of my evaluation he was in bed shaking reporting that he feels very tired and weak, patient lives alone and requesting placement at rehab as he is unable to take care of himself anymore. Otherwise he denies any coughing fevers chills denies any shortness of breath chest pain nausea vomiting abdominal pain changes in bowel or urinary habits. Pertinent positives and negatives as discussed above, a complete review of systems was performed and all other systems are negative. Subjective: Patient seen evaluated bedside. No events overnight. States he has worsening shortness of breath and cough. Denies any sputum production. Vitals: Signs Reviewed Physical Exam: General: nontoxic, no distress, appears at stated age, 3 L nasal cannula, obese Derm: warm, dry, intact Head: Abrasion over the right side of the forehead with dried blood, normocepha lic, symmetric Eyes: EOMI, anicteric sclera Mouth: no lip lesion, mucus membranes moist Cardiovascular: S1 S2 reg, no murmur, rubs, or gallops Lungs: diffuse b/l expiratory wheezing/ronchi, no rales, no accessory muscle use Abdominal: soft, non-tender to palpataion, no appreciable organomegaly Extremities: no gross muscle atrophy, b/l 1+ leg edema, no contractures, 4/5 strength in all extremities Neuro: Alert, Oriented, CNII-XII grossly intact, gait normal Psych: well appearing, appropriate affect Data Received Today: Pertinent Labs: Sodium 132, bicarb 35, BUN 16, creatinine 0.69 Imaging: Venous Doppler ultrasound: Pending Assessment and Plan: Patient is a 79-year-old male with complex past medical history coming to the hospital for evaluation after sustaining a fall and head injury. #. Head injury secondary to fall at home Chest x-ray no acute cardiopulmonary process CT of the head and neck showed no acute intracranial process, there is right scalp edema subcutaneous no evidence of fracture no evidence of cervical spine fracture however multilevel degenerative disc disease Lumbosacral spine x-ray no acute fractures again moderate multilevel disc degenerative disease Pain control Tylenol 650 mg p.o. Q's 6 hours as needed, [place] 5325 p.o. 3 times daily as needed Local wound care to the scalp for abrasion Cardiac monitoring Fall precautions political worker consult for possible placement, patient has guardian, [facility], will contact me with update PT/OT evaluation recommending subacute rehabilitation #. Acute COPD exacerbation on 3L home oxygen DuoNebs around the clock and prn prednisone 40 mg PO daily on 3L nasal canula 02, keep b/w 88-92% resume home inhalers #. Left leg edema and pain Rule out DVT Check D-dimer: Elevated at 5.15 Check venous Doppler ultrasound of the left lower extremity, patient refusing/having difficulty laying down due to shortness of breath Patient has history of venous thromboembolism in the past currently not on any blood thinners APTT elevated at 176.2, discontinue heparin drip until DVT is confirmed #. Chronically elevated troponin Troponin level 0.110 which is flat compared to before No active chest pain Chronic conditions: #. Chronic hypoxic respiratory failure #. COPD on home oxygen compensated: Continue home inhalers #. Diabetes mellitus: Insulin sliding scale, A1c 7.1 #. Chronic anemia: Denies any GI bleeding, continue to monitor, hemoglobin 10.2 #. Chronic systolic congestive heart failure compensated, left ventricular ejection fraction 40%: Continue home medications Resolved: Lactic acidosis DVT prophylaxis: Subcu heparin GI prophylaxis: Protonix 40 mg daily p.o. Anticipated discharge place: sub acute rehab Anticipated discharge time: 24-48hrs Ross Kwan MD PGY-1 IM Dictation was produced using [employer] dictation software. please excuse any grammatical, word or spelling errors. Patient failed observation status, will be switched to inpatient for COPD exacerbation I have seen and evaluated the patient today. Discussed with the resident and agree with the residents finding and plan as documented in the resident's note. Changes highlighted in blue font. Objective - Vital Signs Vital signs: Vital Signs Temp 98.3 F 08/26/24 01:07 Pulse 79 08/26/24 01:07 Resp 18 08/26/24 01:07 BP 101/59 08/26/24 01:07 Pulse Ox 96 08/26/24 01:07 FiO2 Intake & Output 08/25/24 08/26/24 08/26/24 18:59 06:59 18:59 Intake Total 52.731 0 Output Total 200 300 Balance -147.269 -300 Weight 113.398 kg Intake: Intake, IV Titration 52.731 Amount Heparin Sod,Pork in 0.45% 52.731 NaCl 25,000 unit In 0.45 % NaCl 1 250ml.bag @ 18 UNITS/KG/HR 20.412 mls/hr IV .[id number] [facility] Rx#: [id number] Oral 0 Output: Urine 200 300 Other: Voiding Method Urinal # Voids 3 - Labs CBC & Chem 7: 08/26/24 03:46 08/26/24 03:46 Labs: Abnormal Lab Results - Last 24 Hours (Table) 08/25/24 08/25/24 08/26/24 Range/Units 06:39 06:39 03:46 Neutrophils # (Manual) 8.19 H (1.3-7.7) k/uL APTT 176.2 H* (22.0-30.0) sec Sodium 131 L (137-145) mmol/L Chloride 91 L (98-107) mmol/L Carbon Dioxide 35 H (22-30) mmol/L
[2024-08-26 11:59] LABS: Glucose,Whole Blood 76 mg/dL (70-110)
[2024-08-26] MEDS: LACTATED RINGERS 500 ML IV ONE (15:02)
[2024-08-26] MEDS: predniSONE 20 MG TAB PO SCH (15:03)
[2024-08-26] MEDS: LACTATED RINGERS 1,000 ML IV ONE (16:32)
[2024-08-26 17:04] LABS: Glucose,Whole Blood 155 mg/dL (70-110)
[2024-08-26 21:15] LABS: Glucose,Whole Blood 123 mg/dL (70-110)
[2024-08-27] MEDS ORDERED: ZINC OXIDE PASTE (Z-GUARD) 1 APPLIC TOPICAL PRN (03:08)
[2024-08-27 05:43] LABS: ALT 23 U/L (4-49); AST 23 U/L (17-59); African American GFR (CKD) >90 (>60 ml/min/1.73 sqM); Albumin 2.7 g/dL (3.5-5.0); Albumin/Globulin Ratio 1.2; Alkaline Phosphatase 82 U/L (38-126); Anion Gap 4 mmol/L; Blood Urea Nitrogen 12 mg/dL (9-20); Calcium 8.8 mg/dL (8.4-10.2); Carbon Dioxide 34 mmol/L (22-30); Chloride 90 mmol/L (98-107); Globulin 2.3 g/dL; Glucose 104 mg/dL (74-99); Magnesium 1.8 mg/dL (1.6-2.3); Non-African American GFR(CKD) >90 (>60 ml/min/1.73 sqM); Potassium 4.1 mmol/L (3.5-5.1); Sodium 128 mmol/L (137-145); Total Bilirubin 0.7 mg/dL (0.2-1.3)
[2024-08-27 06:10] LABS: HCT 27.5 % (39.6-50.0); HGB 9.1 g/dL (13.0-17.0); MCH 28.9 pg (27.0-32.0); MCHC 33.1 g/dL (32.0-37.0); MCV 87.3 fL (80.0-97.0); Mean Platelet Volume 9.3 fL (9.5-12.2); Platelet Count 289 10*3/uL (140-440); RBC 3.15 10*6/uL (4.40-5.60); RDW 15.6 % (11.5-14.5); WBC 8.81 10*3/uL (4.50-10.00)
[2024-08-27 06:11] LABS: Glucose,Whole Blood 116 mg/dL (70-110)
[2024-08-27 07:56] LABS: Lymphocytes # (M) 1.23 k/uL (1.0-4.8); Metamyelocytes # (M) 0.09 k/uL (0); Metamyelocytes % 1 %; Monocytes # (M) 0.09 k/uL (0-1.0); Myelocytes # (M) 0.09 k/uL (0); Myelocytes % 1 %; Neutrophils % (M) 84 %; Nucleated Red Blood Cells 0 /100 WBC (0-0); Total Cells Counted 200
[2024-08-27] MEDS: AZITHROMYCIN 500 MG in SODIUM CHLORIDE 0.9% 250 ML IVPB SCH (10:10)
[2024-08-27 11:21] LABS: Glucose,Whole Blood 132 mg/dL (70-110)
--- NOTE | 2024-08-27 11:35 | P.PN ---
Subjective Progress Note Date: 08/27/24 Hospital Course: 79-year-old male with COPD on 3 L of oxygen at night, systolic CHF with left ventricular ejection fraction of 40%, coronary artery disease with history of stents hypertension and diabetes mellitus. Patient has multiple hospital admissions over the past couple months for different reasons usually due to COPD exacerbation or fluid overload. Patient was just discharged from the hospital yesterday where he was treated for COPD exacerbation. Today he is coming in after sustaining a fall at home he reports that he was with his neighbor when suddenly passed out and fell to the ground hitting his head resulting in some bleeding he is not sure if he had some loss of consciousness he does not report any seizure-like activity but he seems to be confused about all the events. At time of my evaluation he was in bed shaking reporting that he feels very tired and weak, patient lives alone and requesting placement at rehab as he is unable to take care of himself anymore. Otherwise he denies any coughing fevers chills denies any shortness of breath chest pain nausea vomiting abdominal pain changes in bowel or urinary habits. Pertinent positives and negatives as discussed above, a complete review of systems was performed and all other systems are negative. Subjective: Patient seen evaluated bedside. No events overnight. States he has increased yellow sputum production from cough. Denies any chest pain. Vitals: Signs Reviewed Physical Exam: General: nontoxic, moderated distress, appears at stated age, 4 L nasal cannula, obese Derm: warm, dry, intact Head: Abrasion over the right side of the forehead with dried blood, norm ocephalic, symmetric Eyes: EOMI, anicteric sclera Mouth: no lip lesion, mucus membranes moist Cardiovascular: S1 S2 reg, no murmur, rubs, or gallops Lungs: distant lung sounds, diffuse b/l expiratory wheezing/ronchi, no rales, no accessory muscle use Abdominal: soft, non-tender to palpataion, no appreciable organomegaly Extremities: no gross muscle atrophy, b/l 1+ leg edema, no contractures, 4/5 strength in all extremities Neuro: Alert, Oriented, CNII-XII grossly intact, gait normal Psych: well appearing, appropriate affect Data Received Today: Pertinent Labs: Sodium 128, glucose 104, Hgb 9.1, MCV 87.3 Imaging: Venous Doppler ultrasound: Pending CXR pending Assessment and Plan: Patient is a 79-year-old male with complex past medical history coming to the [facility] for evaluation after sustaining a fall and head injury. #. Head injury secondary to syncope at home Chest x-ray no acute cardiopulmonary process CT of the head and neck showed no acute intracranial process, there is right scalp edema subcutaneous no evidence of fracture no evidence of cervical spine fracture however multilevel degenerative disc disease Lumbosacral spine x-ray no acute fractures again moderate multilevel disc degenerative disease Pain control Tylenol 650 mg p.o. Q's 6 hours as needed, [place] 5325 p.o. 3 times daily as needed Local wound care to the scalp and left first toe for abrasion Fall precautions childcare worker consult for possible placement, patient has guardian, case mgmt currently looking for placement at an [facility] PT/OT evaluation recommending subacute rehabilitation Orthostatic ordered Cardiac telemetry last night displaying A-fib with rate as high as 150 bpm, patient this morning was sinus arrhythmia at rate of 100 bpm Patient has history of paroxysmal A-fib not anticoagulated, based off telemetry telemetry last night may consider increasing metoprolol #. Acute COPD exacerbation on 3L home oxygen #. Chronic hypoxic respiratory failure DuoNebs around the clock and prn prednisone 40 mg PO daily Currently on 4 L nasal canula 02, attempt to wean down, keep b/w 88-92% Continue home Symbicort inhaler Home Spiriva on hold Azithromycin 500 mg IVPB daily for 3 days Will order and review repeat CXR due to new complaint of increased yellow sputum production Pulmonology consulted #. Left leg edema and pain Rule out DVT Check D-dimer: Elevated at 5.15 Check venous Doppler ultrasound of the left lower extremity, patient refusing/having difficulty laying down due to shortness of breath Patient has history of venous thromboembolism in the past currently not on any blood thinners APTT elevated at 176.2, discontinue heparin drip until DVT is confirmed #. Chronically elevated troponin Troponin level 0.110 which is flat compared to before No active chest pain Chronic conditions: #. Sur-zqvsorp-oybaoewlv diabetes mellitus: Insulin sliding scale, Accu-Cheks ACHS, monitor for hypoglycemia, A1c 7.1 #. Chronic anemia: Denies any GI bleeding, continue to monitor, hemoglobin 10.2, continue ferrous sulfate 325 mg PO QD #. Chronic systolic congestive heart failure compensated, left ventricular ejection fraction 40%: Metoprolol 25 mg PO BID, Lisinopril and aldactone on hold #. Paroxysmal atrial fibrillation not anticoagulated: Metoprolol tartrate 25 mg p.o. twice daily #. Chronic hyponatremia: Currently at baseline, will follow-up BMP Resolved: Lactic acidosis DVT prophylaxis: Subcu heparin GI prophylaxis: Protonix 40 mg daily p.o. Anticipated discharge place: sub acute rehab, pending acceptance from [facility] Anticipated discharge time: Pending clinical course Ross Kwan MD PGY-1 IM Dictation was produced using [employer] dictation software. please excuse any grammatical, word or spelling errors. I saw and evaluated the patient during the luu and critical portions of this encounter, and discussed the case in detail with the resident author of this note, I agree with the Assessment and Plan, and my changes, if any, are highlighted in blue. Objective - Vital Signs Vital signs: Vital Signs Temp 97.6 F 08/27/24 00:35 Pulse 89 08/27/24 00:35 Resp 17 08/27/24 00:35 BP 105/67 08/27/24 00:35 Pulse Ox 98 08/27/24 00:35 FiO2 Intake & Output 08/26/24 08/27/24 08/27/24 18:59 06:59 18:59 Intake Total 250 Output Total 250 Balance -250 250 Intake: Oral 250 Output: Urine 250 Other: Voiding Method Urinal Urinal # Voids 3 2 - Labs CBC & Chem 7: 08/27/24 04:32 08/27/24 04:32 Labs: Abnormal Lab Results - Last 24 Hours (Table) 08/26/24 08/26/24 08/26/24 Range/Units 03:46 03:46 17:03 RBC 3.25 L (4.40-5.60) X 10*6/uL Hgb 9.2 L (13.0-17.0) g/dL Hct 29.6 L (39.6-50.0) % MCHC 31.1 L (32.0-37.0) g/dL RDW 15.8 H (11.5-14.5) % MPV 9.2 L (9.5-12.2) FL Immature Gran # (0.00-0.04) 10*3/uL Lymphocytes # (Manual) 0.35 L (0.90-5.00) X 10*3/uL NRBC/100 WBC Diff 0.04 H (0.00-0.01) X 10*3/uL Sodium (137-145) mmol/L Chloride (98-107) mmol/L Carbon Dioxide (22-30) mmol/L Glucose (74-99) mg/dL POC Glucose (mg/dL) 155 H (70-110) mg/dL Hemoglobin A1c 6.3 H (<=6.0) % Total Protein (6.3-8.2) g/dL Albumin (3.5-5.0) g/dL 08/26/24 08/27/24 08/27/24 Range/Units 21:13 04:32 04:32 RBC 3.15 L (4.40-5.60) X 10*6/uL Hgb 9.1 L (13.0-17.0) g/dL Hct 27.5 L (39.6-50.0) % MCHC (32.0-37.0) g/dL RDW 15.6 H (11.5-14.5) % MPV 9.3 L (9.5-12.2) FL Immature Gran # 0.54 H (0.00-0.04) 10*3/uL Lymphocytes # (Manual) (0.90-5.00) X 10*3/uL NRBC/100 WBC Diff (0.00-0.01) X 10*3/uL Sodium 128 L (137-145) mmol/L Chloride 90 L (98-107) mmol/L Carbon Dioxide 34 H (22-30) mmol/L Glucose 104 H (74-99) mg/dL POC Glucose (mg/dL) 123 H (70-110) mg/dL Hemoglobin A1c (<=6.0) % Total Protein 5.0 L (6.3-8.2) g/dL Albumin 2.7 L (3.5-5.0) g/dL 08/27/24 Range/Units 06:09 RBC (4.40-5.60) X 10*6/uL Hgb (13.0-17.0) g/dL Hct (39.6-50.0) % MCHC (32.0-37.0) g/dL RDW (11.5-14.5) % MPV (9.5-12.2) FL Immature Gran # (0.00-0.04) 10*3/uL Lymphocytes # (Manual) (0.90-5.00) X 10*3/uL NRBC/100 WBC Diff (0.00-0.01) X 10*3/uL Sodium (137-145) mmol/L Chloride (98-107) mmol/L Carbon Dioxide (22-30) mmol/L Glucose (74-99) mg/dL POC Glucose (mg/dL) 116 H (70-110) mg/dL Hemoglobin A1c (<=6.0) % Total Protein (6.3-8.2) g/dL Albumin (3.5-5.0) g/dL
--- NOTE | 2024-08-27 12:08 | XR ---
EXAMINATION TYPE: XR chest 1V portable DATE OF EXAM: 08/27/2024 11:55 AM COMPARISON: Chest radiographs from 08/24/2024 TECHNIQUE: XR chest 1V portable Portable AP radiograph of the chest. CLINICAL INDICATION:Male, 79 years old with history of COPD ex, cough; FINDINGS: Lungs/Pleura: No pneumothorax. The right lung is clear. Small left pleural effusion. No focal consoli dation. Pulmonary vascularity: Unremarkable. Heart/mediastinum: Cardiomediastinal silhouette is enlarged and stable. Atherosclerotic calcificatio ns are seen in the aorta. Musculoskeletal: No acute osseous pathology. Dextrocurvature of the thoracic spine. IMPRESSION: Cardiomegaly with small left pleural effusion. [facility], , 08/27/2024 12:06 PM
--- NOTE | 2024-08-27 13:37 | P.CNPUL ---
History of Present Illness Consult date: 08/27/24 Requesting physician: Jesse Lopez Reason for consult: COPD Chief complaint: Fall with trauma to the head History of present illness: This is a 79-year-old male patient well-known to our service as he has had 17 admissions to the hospital since February 2024, not including multiple ER visit s. He has a history of oxygen dependent chronic obstructive pulmonary disease, pulmonary emboli, chronic back pain, coronary disease with previous stent placement, chronic tobacco dependence, hypertension, hyperlipidemia. He presented here to the emergency room on 08/24/2024 after sustaining a fall at home hitting his head. He developed a hematoma to the right parietal region. He had denied any loss of consciousness. He is anticoagulated with warfarin. He came in regarding continued headache. Cranial process. Right scalp subcutaneous and edema. No evidence of fracture. No cervical fracture. Chest x-ray reveals no acute pulmonary process. Lumbar spine x-ray revealed no acute fracture. Moderate multilevel disc degeneration white count 8.8. Hemoglobin 9.1. Platelets 289. Sodium 128. Potassium 4.1. Bicarb 34. BUN 12. Creatinine 0.68. Glucose 104. Viral screening for influenza A/B, RSV and COVID were negative. He is seen today in consultation on the regular medical floor. He is currently sitting up at the bedside. Awake and alert in no acute distress. He denies any worsening shortness of breath, cough or congestion. We mentioned he might need placement due to his frequent readmissions and ability to care for himself. He was extremely angry and adamant that he is going back home at discharge. Review of Systems REVIEW OF SYSTEMS: CONSTITUTIONAL: Positive for headache status post fall. Denies any recent significant weight loss or weight gain. EYES: Denies change in vision. EARS, NOSE, MOUTH, THROAT: Denies headaches, denies sore throat. CARDIOVASCULAR: Denies chest pain, palpitations or syncopal episodes. RESPIRATORY: Denies shortness of breath, cough, congestion or hemoptysis. GASTROINTESTINAL: Denies change in appetite, denies abdominal pain GENITOURINARY: Denies hematuria, denies infections. MUSKULOSKELETAL: Denies pain, denies swelling. INTEGUMENTARY: Denies rash, denies eczema. NEUROLOGICAL: Denies recent memory loss, no recent seizure activity. PSYCHIATRIC: Denies anxiety, denies depression. HEMATOLOGIC/LYMPHATIC: Denies anemia, denies enlarged lymph nodes. Past Medical History Past Medical History: Coronary Artery Disease (CAD), COPD, GERD/Reflux, Hyperlipidemia, Hypertension, Myocardial Infarction (IA), Pulmonary Embolus (PE), Renal Disease Additional Past Medical History / Comment(s): home O2 (3L [place] HS), bilateral PEs in 2003, history ETOH abuse - pt states he has never had withdrawal symptoms, chronic low back pain/sciatica/spurs/disc disease - much improved after back injections, past urinary retention, diverticulitis/benign colon polyps removed, nephrolithiasis - passed stones on his own, shingelles 16 years ago - R shoulder . Last Myocardial Infarction Date:: 2010 History of Any Multi-Drug Resistant Organisms: None Reported Past Surgical History: Heart Catheterization With Stent Additional Past Surgical History / Comment(s): back injections for pain, piece of metal removed from right eye, EGD, colonoscopy Past Anesthesia/Blood Transfusion Reactions: No Reported Reaction Additional Past Anesthesia/Blood Transfusion Reaction / Comment(s): claustrophobia Date of Last Stent Placement:: 2010 Past Psychological History: Anxiety, Depression, PTSD Smoking Status: Former smoker Past Alcohol Use History: None Reported Past Drug Use History: None Reported - Past Family History Mother Family Medical History: Cancer Additional Family Medical History / Comment(s): from breast cancer at age 53. Father Family Medical History: Coronary Artery Disease (CAD), Myocardial Infarction (IA) Additional Family Medical History / Comment(s): 4 MIs/CABG. at age 72. Medications and Allergies Home Medications Medication Instructions Recorded Confirmed Type Aspirin EC [Ecotrin Low Dose] 81 mg PO DAILY 06/22/18 08/25/24 History Budesonide/Formoterol Fumarate 2 puff INHALATION RT-BID 06/22/18 08/25/24 History [Symbicort 160-4.5 Mcg Inhaler] Ipratropium/Albuterol Sulfate 1 puff INHALATION RT-QID 06/22/18 08/25/24 History [Combivent Respimat Inhaler] Metoprolol Tartrate [Lopressor] 25 mg PO BID 06/22/18 08/25/24 History Clopidogrel Bisulfate [Plavix] 75 mg PO DAILY 07/01/18 08/25/24 History Albuterol Inhaler [Ventolin Hfa 2 puff INHALATION RT-TID PRN 12/07/19 08/25/24 History Inhaler] Albuterol Nebulized [Ventolin 2.5 mg INHALATION RT-QID 12/07/19 08/25/24 History Nebulized] Loratadine [Claritin] 10 mg PO DAILY 12/07/19 08/25/24 History Simvastatin [Zocor] 40 mg PO HS 12/07/19 08/25/24 History Tiotropium 18 Mcg/Puff [Spiriva] 2 puff INHALATION RT-DAILY 12/07/19 08/25/24 History Cholecalciferol [Vitamin D3 (25 25 mcg PO BID 03/17/24 08/25/24 History Mcg = 1000 Iu)] Furosemide [Lasix] 40 mg PO DAILY 04/16/24 08/25/24 History Spironolactone [Aldactone] 25 mg PO DAILY #90 tab 06/24/24 08/25/24 Rx HYDROcodone/APAP 5-325MG [Counce 1 tab PO TID PRN 07/28/24 08/25/24 History 5-325] Meloxicam [Mobic] 7.5 mg PO DAILY 07/28/24 08/25/24 History Ondansetron Odt [Zofran ODT] 4 mg PO Q8HR PRN 07/28/24 08/25/24 History Ferrous Sulfate [Iron (65 MG 325 mg PO W/LUNCH 14 Days #14 tab 08/04/24 08/25/24 Rx Elemental)] Folic Acid 1 mg PO DAILY 14 Days #14 tab 08/04/24 08/25/24 Rx Ascorbic Acid [Vitamin C] 1,000 mg PO W/LUNCH #90 tab 08/23/24 08/25/24 Rx predniSONE [Deltasone] 40 mg PO DAILY #6 tab 08/23/24 08/25/24 Rx Allergies Allergy/AdvReac Type Severity Reaction Status Date / Time fluticasone AdvReac Nausea Verified 08/25/24 10:27 [From [facility]] levofloxacin [From Levaquin] AdvReac TENDON PAIN Verified 08/25/24 10:27 salmeterol AdvReac Nausea Verified 08/25/24 10:27 [From [facility]] Physical Exam Vitals: Vital Signs Temp Pulse Pulse Pulse Resp BP Pulse Ox 08/27/24 08:38 108 H 08/27/24 08:27 60 08/27/24 07:39 97.8 F 66 20 97/54 97 08/27/24 00:35 97.6 F 89 17 105/67 98 08/26/24 20:00 101 H 18 08/26/24 19:10 98.6 F 101 H 18 98 08/26/24 14:09 97.8 F 76 18 68/42 Intake and Output 08/26/24 08/27/24 08/27/24 22:59 06:59 14:59 Intake Total 250 Balance 250 Intake: Oral 250 Other: Voiding Method Urinal Urinal # Voids 3 2 GENERAL EXAM: Alert, disheveled 79-year-old male on 4 L nasal cannula, comfortable in no apparent distress. HEAD: Normocephalic. Hematoma over right eye. EYES: Normal reaction of pupils, equal size. NOSE: Clear with pink turbinates. THROAT: No erythema or exudates. NECK: No masses, no JVD. CHEST: No chest wall deformity. LUNGS: Equal air entry with no crackles, wheeze, rhonchi or dullness. Diminishe d CVS: S1 and S2 normal with no audible murmur, regular rhythm. ABDOMEN: No hepatosplenomegaly, normal bowel sounds, no guarding or rigidity. SPINE: No scoliosis or deformity SKIN: Multiple areas of ecchymosis and bruising. No rashes CENTRAL NERVOUS SYSTEM: No focal deficits, tone is normal in all 4 extremities. EXTREMITIES: There is no peripheral edema. No clubbing, no cyanosis. Peripheral pulses are intact. Results - Laboratory Findings CBC and BMP: 08/27/24 04:32 08/27/24 04:32 PT/INR, D-dimer PT 11.1 sec (10.0-12.5) 08/25/24 06:39 INR 1.0 (<1.2) 08/25/24 06:39 D-Dimer 5.15 mg/L FEU (<0.60) H 08/25/24 03:54 Abnormal lab findings: Abnormal Labs 08/24/24 08/24/24 08/24/24 20:25 20:25 20:25 WBC 10.15 H RBC 3.45 L Hgb 10.2 L Hct 29.4 L MCHC RDW MPV 8.9 L Immature Gran # 0.49 H Neutrophils # 8.04 H Neutrophils # (Manual) Lymphocytes # 0.80 L Lymphocytes # (Manual) Eosinophils # 0.00 L Metamyelocytes # (Man) Myelocytes # (Manual) NRBC/100 WBC Diff APTT 18.3 L D-Dimer Sodium 132 L Chloride 92 L Carbon Dioxide 32 H BUN 25 H Glucose 172 H POC Glucose (mg/dL) Hemoglobin A1c Plasma Lactic Acid Sandor Troponin I Total Protein 5.6 L Albumin 3.2 L 08/24/24 08/24/24 08/24/24 20:25 20:25 23:16 WBC RBC Hgb Hct MCHC RDW MPV Immature Gran # Neutrophils # Neutrophils # (Manual) Lymphocytes # Lymphocytes # (Manual) Eosinophils # Metamyelocytes # (Man) Myelocytes # (Manual) NRBC/100 WBC Diff APTT D-Dimer Sodium Chloride Carbon Dioxide BUN Glucose POC Glucose (mg/dL) Hemoglobin A1c Plasma Lactic Acid Sandor 3.8 H* 2.4 H* Troponin I 0.110 H* Total Protein Albumin 08/25/24 08/25/24 08/25/24 03:54 06:15 06:39 WBC 10.24 H RBC 3.42 L Hgb 10.0 L Hct 29.8 L MCHC RDW 15.7 H MPV 8.8 L Immature Gran # 0.63 H Neutrophils # Neutrophils # (Manual) 8.19 H Lymphocytes # Lymphocytes # (Manual) Eosinophils # Metamyelocytes # (Man) Myelocytes # (Manual) NRBC/100 WBC Diff APTT D-Dimer 5.15 H Sodium Chloride Carbon Dioxide BUN Glucose POC Glucose (mg/dL) 126 H Hemoglobin A1c Plasma Lactic Acid Sandor Troponin I Total Protein Albumin 08/25/24 08/26/24 08/26/24 06:39 03:46 03:46 WBC RBC 3.25 L Hgb 9.2 L Hct 29.6 L MCHC 31.1 L RDW 15.8 H MPV 9.2 L Immature Gran # Neutrophils # Neutrophils # (Manual) Lymphocytes # Lymphocytes # (Manual) 0.35 L Eosinophils # Metamyelocytes # (Man) Myelocytes # (Manual) NRBC/100 WBC Diff 0.04 H APTT 176.2 H* D-Dimer Sodium Chloride Carbon Dioxide BUN Glucose POC Glucose (mg/dL) Hemoglobin A1c 6.3 H Plasma Lactic Acid Sandor Troponin I Total Protein Albumin 08/26/24 08/26/24 08/26/24 03:46 17:03 21:13 WBC RBC Hgb Hct MCHC RDW MPV Immature Gran # Neutrophils # Neutrophils # (Manual) Lymphocytes # Lymphocytes # (Manual) Eosinophils # Metamyelocytes # (Man) Myelocytes # (Manual) NRBC/100 WBC Diff APTT D-Dimer Sodium 131 L Chloride 91 L Carbon Dioxide 35 H BUN Glucose POC Glucose (mg/dL) 155 H 123 H Hemoglobin A1c Plasma Lactic Acid Sandor Troponin I Total Protein Albumin 08/27/24 08/27/24 08/27/24 04:32 04:32 06:09 WBC RBC 3.15 L Hgb 9.1 L Hct 27.5 L MCHC RDW 15.6 H MPV 9.3 L Immature Gran # 0.54 H Neutrophils # Neutrophils # (Manual) Lymphocytes # Lymphocytes # (Manual) Eosinophils # Metamyelocytes # (Man) 0.09 H Myelocytes # (Manual) 0.09 H NRBC/100 WBC Diff APTT D-Dimer Sodium 128 L Chloride 90 L Carbon Dioxide 34 H BUN Glucose 104 H POC Glucose (mg/dL) 116 H Hemoglobin A1c Plasma Lactic Acid Sandor Troponin I Total Protein 5.0 L Albumin 2.7 L 08/27/24 11:20 WBC RBC Hgb Hct MCHC RDW MPV Immature Gran # Neutrophils # Neutrophils # (Manual) Lymphocytes # Lymphocytes # (Manual) Eosinophils # Metamyelocytes # (Man) Myelocytes # (Manual) NRBC/100 WBC Diff APTT D-Dimer Sodium Chloride Carbon Dioxide BUN Glucose POC Glucose (mg/dL) 132 H Hemoglobin A1c Plasma Lactic Acid Sandor Troponin I Total Protein Albumin - Diagnostic Findings Chest x-ray: image reviewed Assessment and Plan Assessment: Headache status post fall with head injury with right sided hematoma over the right eye Chronic hypoxemic respiratory failure secondary to severe COPD History of chronic tobacco dependence Hyponatremia, chronic Anemia of chronic disease Hyperlipidemia Congestive heart failure, systolic, ejection fraction 40% Paroxysmal atrial fibrillation Hypertension Diabetes mellitus, type II Multiple, multiple admissions to the hospital Poor overall functional performance based on the above-mentioned multiple comor bidities Plan: The patient was seen and evaluated Chest x-ray, labs and medications reviewed Currently stable on 4 L nasal cannula Continue DuoNeb inhalations, Symbicort Continue a prednisone taper Heparin for DVT prophylaxis Protonix for GI prophylaxis Case management working on potential placement Patient today adamantly states he is only going back home We will continue to follow and make further recommendations based on his clinical status I have personally seen and examined the patient, performed the documentation and the assessment and plan as written. Number of minutes spent on the visit: 20 Dictation was produced using [employer] dictation software. Please excuse any grammatical, word or spelling errors. Time with Patient: Greater than 30
[2024-08-27 16:40] LABS: Glucose,Whole Blood 170 mg/dL (70-110)
[2024-08-27 20:00] LABS: Glucose,Whole Blood 183 mg/dL (70-110)
[2024-08-27] MEDS: MELATONIN 5 MG TABLET PO SCH (20:24)
[2024-08-28 06:18] LABS: Glucose,Whole Blood 107 mg/dL (70-110)
--- NOTE | 2024-08-28 09:01 | P.PN ---
Subjective Progress Note Date: 08/28/24 Hospital Course: 79-year-old male with COPD on 3 L of oxygen at night, systolic CHF with left ventricular ejection fraction of 40%, coronary artery disease with history of stents hypertension and diabetes mellitus. Patient has multiple hospital admissions over the past couple months for different reasons usually due to COPD exacerbation or fluid overload. Patient was just discharged from the hospital yesterday where he was treated for COPD exacerbation. Today he is coming in after sustaining a fall at home he reports that he was with his neighbor when suddenly passed out and fell to the ground hitting his head resulting in some bleeding he is not sure if he had some loss of consciousness he does not report any seizure-like activity but he seems to be confused about all the events. At time of my evaluation he was in bed shaking reporting that he feels very tired and weak, patient lives alone and requesting placement at rehab as he is unable to take care of himself anymore. Otherwise he denies any coughing fevers chills denies any shortness of breath chest pain nausea vomiting abdominal pain changes in bowel or urinary habits. Pertinent positives and negatives as discussed above, a complete review of systems was performed and all other systems are negative. Subjective: Patient seen evaluated bedside. No events overnight. Refused telemetry and AM meds. Pt is high risk for having secondary adrenal insufficiency, will obtain AM cortisol tomorrow (used in context of prednisone administration), and consider an ACTH stim test 24 hours after d/c of steroids - recommend doing this inpt prior to d/c due to poor outpt f/u and high liklihood of readmission. Pt continues to have acute hypoxemic respiratory failure and labile BPs, warranting escalation to inpatient admission. Vitals: Signs Reviewed Physical Exam: General: nontoxic, moderated distress, appears at stated age, 4 L nasal cannula, obese Derm: warm, dry, intact Head: Abrasion over the right side of the forehead with dried blood, normocephalic, symmetric Eyes: EOMI, anicteric sclera Mouth: no lip lesion, mucus membranes moist Cardiovascular: S1 S2 reg, no murmur, rubs, or gallops Lungs: distant lung sounds, diffuse b/l expiratory wheezing/ronchi, no rales, no accessory muscle use Abdominal: soft, non-tender to palpataion, no appreciable organomegaly Extremities: no gross muscle atrophy, b/l 1+ leg edema, no contractures, 4/5 strength in all extremities Neuro: Alert, Oriented, CNII-XII grossly intact, gait normal Psych: well appearing, appropriate affect Data Received Today: Assessment and Plan: Patient is a 79-year-old male with complex past medical history coming to the hospital for evaluation after sustaining a fall and head injury. #. Head injury secondary to syncope at home Chest x-ray no acute cardiopulmonary process CT of the head and neck showed no acute intracranial process, there is right scalp edema subcutaneous no evidence of fracture no evidence of cervical spine fracture however multilevel degenerative disc disease Lumbosacral spine x-ray no acute fractures again moderate multilevel disc degenerative disease Pain control Tylenol 650 mg p.o. Q's 6 hours as needed, [place] [id number] p.o. 3 times daily as needed Local wound care to the scalp and left first toe for abrasion Fall precautions service worker consult for possible placement, patient has guardian, case mgmt currently looking for placement at an [facility] PT/OT evaluation recommending subacute rehabilitation Orthostatics ordered Cardiac telemetry last night displaying A-fib with rate as high as 150 bpm, patient this morning was sinus arrhythmia at rate of 100 bpm Patient has history of paroxysmal A-fib not anticoagulated, based off telemetry telemetry last night may consider increasing metoprolol -AM cortisol ordered, consideration of ACTH stim test 24 hours after d/c of prednisone. #. Acute Hypoxemic Respiratory Failure 2/2 COPD exacerbation #. Chronic hypoxic respiratory failure on 3L home oxygen DuoNebs around the clock and prn prednisone 40 mg PO daily until back on 3L NC, still requiring 4L Currently on 4 L nasal canula 02, attempt to wean down, keep b/w 88-92% Continue home Symbicort inhaler Home Spiriva on hold Azithromycin 500 mg IVPB daily for 3 days CXR reviewed and personally interpreted, slighly worsening left pleural effusion, no consolidation Pulmonology consulted #. Left leg edema and pain Rule out DVT Check D-dimer: Elevated at 5.15 Check venous Doppler ultrasound of the left lower extremity, patient refusing/having difficulty laying down due to shortness of breath Patient has history of venous thromboembolism in the past currently not on any blood thinners APTT elevated at 176.2, discontinue heparin drip until DVT is confirmed #. Chronically elevated troponin Troponin level 0.110 which is flat compared to before No active chest pain Chronic conditions: #. [id number] diabetes mellitus: Insulin sliding scale, Accu-Cheks ACHS, monitor for hypoglycemia, A1c 7.1 #. Chronic anemia: Denies any GI bleeding, continue to monitor, hemoglobin 10.2, continue ferrous sulfate 325 mg PO QD #. Chronic systolic congestive heart failure compensated, left ventricular e jection fraction 40%: Metoprolol 25 mg PO BID, Lisinopril and aldactone on hold #. Paroxysmal atrial fibrillation not anticoagulated: Metoprolol tartrate 25 mg p.o. twice daily #. Chronic hyponatremia: Currently at baseline, will follow-up BMP Resolved: Lactic acidosis DVT prophylaxis: Subcu heparin GI prophylaxis: Protonix 40 mg daily p.o. Anticipated discharge place: sub acute rehab, pending acceptance from [facility] Anticipated discharge time: Pending clinical course Dictation was produced using Zoom dictation software. please excuse any grammatical, word or spelling errors. Objective - Vital Signs Vital signs: Vital Signs Temp 99.5 F 08/28/24 07:37 Pulse 91 08/28/24 07:37 Resp 20 08/28/24 07:37 BP 110/53 08/28/24 07:37 Pulse Ox 97 08/28/24 07:37 FiO2 Intake & Output 08/27/24 08/28/24 08/28/24 18:59 06:59 18:59 Intake Total 600 Output Total 230 1200 Balance -230 -600 Intake: Oral 600 Output: Urine 230 1200 Other: Voiding Method Urinal Urinal # Voids 3 - Labs CBC & Chem 7: 08/27/24 04:32 08/27/24 04:32 Labs: Abnormal Lab Results - Last 24 Hours (Table) 08/27/24 08/27/24 08/27/24 Range/Units 11:20 16:39 19:59 POC Glucose (mg/dL) 132 H 170 H 183 H (70-110) mg/dL
[2024-08-28 11:03] LABS: Glucose,Whole Blood 113 mg/dL (70-110)
[2024-08-28 12:08] LABS: ALT 20 U/L (4-49); AST 21 U/L (17-59); African American GFR (CKD) >90 (>60 ml/min/1.73 sqM); Albumin 2.8 g/dL (3.5-5.0); Albumin/Globulin Ratio 1.2; Alkaline Phosphatase 78 U/L (38-126); Anion Gap 4 mmol/L; Blood Urea Nitrogen 11 mg/dL (9-20); Calcium 8.5 mg/dL (8.4-10.2); Carbon Dioxide 32 mmol/L (22-30); Chloride 96 mmol/L (98-107); Globulin 2.3 g/dL; Glucose 105 mg/dL (74-99); Magnesium 1.9 mg/dL (1.6-2.3); Non-African American GFR(CKD) >90 (>60 ml/min/1.73 sqM); Potassium 3.7 mmol/L (3.5-5.1); Sodium 132 mmol/L (137-145); Total Bilirubin 0.7 mg/dL (0.2-1.3); Total Protein 5.1 g/dL (6.3-8.2)
[2024-08-28 12:11] LABS: HCT 28.1 % (39.6-50.0); HGB 9.5 g/dL (13.0-17.0); MCH 28.9 pg (27.0-32.0); MCHC 33.8 g/dL (32.0-37.0); MCV 85.4 fL (80.0-97.0); Platelet Count 280 10*3/uL (140-440); RBC 3.29 10*6/uL (4.40-5.60); RDW 15.5 % (11.5-14.5); WBC 11.84 10*3/uL (4.50-10.00)
[2024-08-28 13:07] LABS: Eosinophils # (M) 0.24 k/uL (0-0.7); Lymphocytes # (M) 2.01 k/uL (1.0-4.8); Metamyelocytes # (M) 0.24 k/uL (0); Metamyelocytes % 2 %; Monocytes # (M) 0.24 k/uL (0-1.0); Myelocytes # (M) 0.12 k/uL (0); Myelocytes % 1 %; Neutrophils # (M) 9.24 k/uL (1.3-7.7); Neutrophils % (M) 78 %; Nucleated Red Blood Cells 0 /100 WBC (0-0); Total Cells Counted 200
--- NOTE | 2024-08-28 13:28 | P.PN ---
Subjective Progress Note Date: 08/28/24 This is a 79-year-old male patient well-known to our service as he has had 17 admissions to the hospital since February 2024, not including multiple ER visits. He has a history of oxygen dependent chronic obstructive pulmonary disease, pulmonary emboli, chronic back pain, coronary disease with previous s tent placement, chronic tobacco dependence, hypertension, hyperlipidemia. He presented here to the emergency room on 08/24/2024 after sustaining a fall at home hitting his head. He developed a hematoma to the right parietal region. He had denied any loss of consciousness. He is anticoagulated with warfarin. He came in regarding continued headache. Cranial process. Right scalp subcutaneous and edema. No evidence of fracture. No cervical fracture. Chest x-ray reveals no acute pulmonary process. Lumbar spine x-ray revealed no acute fracture. Moderate multilevel disc degeneration white count 8.8. Hemoglobin 9.1. Platelets 289. Sodium 128. Potassium 4.1. Bicarb 34. BUN 12. Creat inine 0.68. Glucose 104. Viral screening for influenza A/B, RSV and COVID were negative. He is seen today in consultation on the regular medical floor. He is currently sitting up at the bedside. Awake and alert in no acute distress. He denies any worsening shortness of breath, cough or congestion. We mentioned he might need placement due to his frequent readmissions and ability to care for himself. He was extremely angry and adamant that he is going back home at discharge. The patient is seen today August 28, 2024 in follow-up on the regular medical floor. He is currently resting in bed. Awake and alert in no acute distress. Maintaining O2 saturations in the 90s on 4 L/min per nasal cannula. He has been afebrile. Hemodynamically stable. White count 11.8. Hemoglobin 9.5. Platel ets 280. Sodium 132. Potassium 3.7. Bicarb 32. BUN 11. Creatinine 0.65. Glucose 105. He remains on DuoNeb inhalations, Symbicort, prednisone taper. Empiric antibiotics in the form of azithromycin. Heparin for DVT prophylaxis. Objective - Vital Signs Vital signs: Vital Signs Temp 99.5 F 08/28/24 07:37 Pulse 91 08/28/24 09:10 Resp 20 08/28/24 09:10 BP 110/53 08/28/24 07:37 Pulse Ox 94 L 08/28/24 09:07 FiO2 Intake & Output 08/27/24 08/28/24 08/28/24 18:59 06:59 18:59 Intake Total 600 Output Total 230 1200 Balance -230 -600 Intake: Oral 600 Output: Urine 230 1200 Other: Voiding Method Urinal Urinal Urinal # Voids 3 - Exam GENERAL EXAM: Alert, 79-year-old male, on 4 L nasal cannula, comfortable in no apparent distress. HEAD: Normocephalic. Hematoma over right eye. EYES: Normal reaction of pupils, equal size. NOSE: Clear with pink turbinates. THROAT: No erythema or exudates. NECK: No masses, no JVD. CHEST: No chest wall deformity. LUNGS: Equal air entry with no crackles, wheeze, rhonchi or dullness. Diminished CVS: S1 and S2 normal with no audible murmur, regular rhythm. ABDOMEN: No hepatosplenomegaly, normal bowel sounds, no guarding or rigidity. SPINE: No scoliosis or deformity SKIN: Multiple areas of ecchymosis and bruising. No rashes CENTRAL NERVOUS SYSTEM: No focal deficits, tone is normal in all 4 extremities. EXTREMITIES: There is no peripheral edema. No clubbing, no cyanosis. Peripheral pulses are intact. - Labs CBC & Chem 7: 08/28/24 11:14 08/28/24 11:14 Labs: Abnormal Lab Results - Last 24 Hours (Table) 08/27/24 08/27/24 08/28/24 Range/Units 16:39 19:59 11:02 WBC (4.50-10.00) 10*3/uL RBC (4.40-5.60) 10*6/uL Hgb (13.0-17.0) g/dL Hct (39.6-50.0) % RDW (11.5-14.5) % MPV (9.5-12.2) fL Immature Gran # (0.00-0.04) 10*3/uL Neutrophils # (Manual) (1.3-7.7) k/uL Metamyelocytes # (Man) (0) k/uL Myelocytes # (Manual) (0) k/uL Sodium (137-145) mmol/L Chloride (98-107) mmol/L Carbon Dioxide (22-30) mmol/L Creatinine (0.66-1.25) mg/dL Glucose (74-99) mg/dL POC Glucose (mg/dL) 170 H 183 H 113 H (70-110) mg/dL Total Protein (6.3-8.2) g/dL Albumin (3.5-5.0) g/dL 08/28/24 08/28/24 Range/Units 11:14 11:14 WBC 11.84 H (4.50-10.00) 10*3/uL RBC 3.29 L (4.40-5.60) 10*6/uL Hgb 9.5 L (13.0-17.0) g/dL Hct 28.1 L (39.6-50.0) % RDW 15.5 H (11.5-14.5) % MPV 9.0 L (9.5-12.2) fL Immature Gran # 0.87 H (0.00-0.04) 10*3/uL Neutrophils # (Manual) 9.24 H (1.3-7.7) k/uL Metamyelocytes # (Man) 0.24 H (0) k/uL Myelocytes # (Manual) 0.12 H (0) k/uL Sodium 132 L (137-145) mmol/L Chloride 96 L (98-107) mmol/L Carbon Dioxide 32 H (22-30) mmol/L Creatinine 0.65 L (0.66-1.25) mg/dL Glucose 105 H (74-99) mg/dL POC Glucose (mg/dL) (70-110) mg/dL Total Protein 5.1 L (6.3-8.2) g/dL Albumin 2.8 L (3.5-5.0) g/dL Assessment and Plan Assessment: Headache status post fall with head injury with right sided hematoma over the right eye Chronic hypoxemic respiratory failure secondary to severe COPD History of chronic tobacco dependence Hyponatremia, chronic Anemia of chronic disease Hyperlipidemia Congestive heart failure, systolic, ejection fraction 40% Paroxysmal atrial fibrillation Hypertension Diabetes mellitus, type II Multiple, multiple admissions to the hospital Poor overall functional performance based on the above-mentioned multiple comorbidities Plan: The patient was seen and evaluated Labs and medications reviewed Currently stable on 4 L nasal cannula Continue DuoNeb inhalations, Symbicort Continue a prednisone taper Heparin for DVT prophylaxis Protonix for GI prophylaxis We will continue to follow I have personally seen and examined the patient, performed the documentation and the assessment and plan as written. Number of minutes spent on the visit: 10 Dictation was produced using G[employer] dictation software. Please excuse any grammatical, word or spelling errors.
[2024-08-28 16:45] LABS: Glucose,Whole Blood 255 mg/dL (70-110)
[2024-08-28 19:48] LABS: Glucose,Whole Blood 124 mg/dL (70-110)
[2024-08-29 06:16] LABS: Glucose,Whole Blood 130 mg/dL (70-110)
--- NOTE | 2024-08-29 10:04 | P.PN ---
Subjective Progress Note Date: 08/29/24 Hospital Course: 79-year-old male with COPD on 3 L of oxygen at night, systolic CHF with left ventricular ejection fraction of 40%, coronary artery disease with history of stents hypertension and diabetes mellitus. Patient has multiple hospital admissions over the past couple months for different reasons usually due to COPD exacerbation or fluid overload. Patient was just discharged from the hospital yesterday where he was treated for COPD exacerbation. Today he is coming in after sustaining a fall at home he reports that he was with his neighbor when suddenly passed out and fell to the ground hitting his head resulting in some bleeding he is not sure if he had some loss of consciousness he does not report any seizure-like activity but he seems to be confused about all the events. At time of my evaluation he was in bed shaking reporting that he feels very tired and weak, patient lives alone and requesting placement at rehab as he is unable to take care of himself anymore. Otherwise he denies any coughing fevers chills denies any shortness of breath chest pain nausea vomiting abdominal pain changes in bowel or urinary habits. Pertinent positives and negatives as discussed above, a complete review of systems was performed and all other systems are negative. Subjective: Patient seen evaluated bedside. No events overnight. Patient has current complaint of 5 out of 10 non-radiating chest pain. Vitals: Signs Reviewed Physical Exam: General: nontoxic, moderated distress, appears at stated age, 4 L nasal cannula, obese Derm: warm, dry, intact Head: Abrasion over the right side of the forehead with dried blood, normocephalic, symmetric Eyes: EOMI, anicteric sclera Mouth: no lip lesion, mucus membranes moist Cardiovascular: S1 S2 reg, no murmur, rubs, or gallops Lungs: distant lung sounds, diffuse b/l expiratory wheezing/ronchi, no rales, no accessory muscle use Abdominal: soft, non-tender to palpataion, no appreciable organomegaly Extremities: no gross muscle atrophy, b/l 1+ leg edema, no contractures, 4/5 strength in all extremities Neuro: Alert, Oriented, CNII-XII grossly intact, gait normal Psych: well appearing, appropriate affect Data Received Today: Assessment and Plan: Patient is a 79-year-old male with complex past medical history coming to the hospital for evaluation after sustaining a fall and head injury. #. Acute chest pain pt complaining of 5/10 non-radiating chest pain EKG ordered Troponin x 3 q 3 hours ordered Continue with home atorvastatin and Plavix Cardiac telemetry cardiology consult if trops are elevated and/or EKG positive for ST elevation Patient can be discharged if EKG and troponin's are negative #. Head injury secondary to syncope at home Chest x-ray no acute cardiopulmonary process CT of the head and neck showed no acute intracranial process, there is right scalp edema subcutaneous no evidence of fracture no evidence of cervical spine fracture however multilevel degenerative disc disease Lumbosacral spine x-ray no acute fractures again moderate multilevel disc degenerative disease Pain control Tylenol 650 mg p.o. Q's 6 hours as needed, [place] 5325 p.o. 3 times daily as needed Local wound care to the scalp and left first toe for abrasion Fall precautions iron worker foreman consult for possible placement, patient has guardian, case mgmt currently looking for placement at an [facility] PT/OT evaluation recommending subacute rehabilitation Orthostatics ordered Cardiac telemetry last night displaying A-fib with rate as high as 150 bpm, patient this morning was sinus arrhythmia at rate of 100 bpm Patient has history of paroxysmal A-fib not anticoagulated, based off telemetry telemetry last night may consider increasing metoprolol -AM cortisol ordered, consideration of ACTH stim test 24 hours after d/c of prednisone. #. Acute Hypoxemic Respiratory Failure 2/2 COPD exacerbation #. Chronic hypoxic respiratory failure on 3L home oxygen DuoNebs around the clock and prn prednisone 40 mg PO daily until back on 3L NC, still requiring 4L Currently on 4 L nasal canula 02, attempt to wean down, keep b/w 88-92% Continue home Symbicort inhaler Home Spiriva on hold Azithromycin 500 mg IVPB daily for 3 days CXR reviewed and personally interpreted, slighly worsening left pleural effusion, no consolidation Pulmonology consulted #. Left leg edema and pain Rule out DVT Check D-dimer: Elevated at 5.15 Check venous Doppler ultrasound of the left lower extremity, patient refusing/having difficulty laying down due to shortness of breath Patient has history of venous thromboembolism in the past currently not on any blood thinners APTT elevated at 176.2, discontinue heparin drip until DVT is confirmed #. Chronically elevated troponin Troponin level 0.110 which is flat compared to before No active chest pain Chronic conditions: #. Ppw-hciqaja-akddghedw diabetes mellitus: Insulin sliding scale, Accu-Cheks ACHS, monitor for hypoglycemia, A1c 7.1 #. Chronic anemia: Denies any GI bleeding, continue to monitor, hemoglobin 10.2, continue ferrous sulfate 325 mg PO QD #. Chronic systolic congestive heart failure compensated, left ventricular ejection fraction 40%: Metoprolol 25 mg PO BID, Lisinopril and aldactone on hold #. Paroxysmal atrial fibrillation not anticoagulated: Metoprolol tartrate 25 mg p.o. twice daily #. Chronic hyponatremia: Currently at baseline, will follow-up BMP Resolved: Lactic acidosis DVT prophylaxis: Subcu heparin GI prophylaxis: Protonix 40 mg daily p.o. Anticipated discharge place: sub acute rehab, pending [facility] Anticipated discharge time: Pending clinical course I saw and evaluated the patient during the luu and critical portions of this encounter, and discussed the case in detail with the resident author of this note, I agree with the Assessment and Plan, and my changes, if any, are highlighted in blue. Objective - Vital Signs Vital signs: Vital Signs Temp 96.4 F L 08/29/24 01:42 Pulse 95 08/29/24 01:42 Resp 19 08/29/24 01:42 BP 128/66 08/29/24 01:42 Pulse Ox 98 08/29/24 01:42 FiO2 Intake & Output 08/28/24 08/28/24 08/29/24 06:59 18:59 06:59 Intake Total 600 480 Output Total 3706 987 0323 Balance -600 -700 -1120 Intake: Oral 600 480 Output: Urine 7251 287 9742 Other: Voiding Method Urinal Urinal Urinal - Labs CBC & Chem 7: 08/28/24 11:14 08/28/24 11:14 Labs: Abnormal Lab Results - Last 24 Hours (Table) 08/28/24 08/28/24 08/28/24 Range/Units 11:02 11:14 11:14 WBC 11.84 H (4.50-10.00) 10*3/uL RBC 3.29 L (4.40-5.60) 10*6/uL Hgb 9.5 L (13.0-17.0) g/dL Hct 28.1 L (39.6-50.0) % RDW 15.5 H (11.5-14.5) % MPV 9.0 L (9.5-12.2) fL Immature Gran # 0.87 H (0.00-0.04) 10*3/uL Neutrophils # (Manual) 9.24 H (1.3-7.7) k/uL Metamyelocytes # (Man) 0.24 H (0) k/uL Myelocytes # (Manual) 0.12 H (0) k/uL Sodium 132 L (137-145) mmol/L Chloride 96 L (98-107) mmol/L Carbon Dioxide 32 H (22-30) mmol/L Creatinine 0.65 L (0.66-1.25) mg/dL Glucose 105 H (74-99) mg/dL POC Glucose (mg/dL) 113 H (70-110) mg/dL Total Protein 5.1 L (6.3-8.2) g/dL Albumin 2.8 L (3.5-5.0) g/dL 08/28/24 08/28/24 08/29/24 Range/Units 16:43 19:47 06:15 WBC (4.50-10.00) 10*3/uL RBC (4.40-5.60) 10*6/uL Hgb (13.0-17.0) g/dL Hct (39.6-50.0) % RDW (11.5-14.5) % MPV (9.5-12.2) fL Immature Gran # (0.00-0.04) 10*3/uL Neutrophils # (Manual) (1.3-7.7) k/uL Metamyelocytes # (Man) (0) k/uL Myelocytes # (Manual) (0) k/uL Sodium (137-145) mmol/L Chloride (98-107) mmol/L Carbon Dioxide (22-30) mmol/L Creatinine (0.66-1.25) mg/dL Glucose (74-99) mg/dL POC Glucose (mg/dL) 255 H 124 H 130 H (70-110) mg/dL Total Protein (6.3-8.2) g/dL Albumin (3.5-5.0) g/dL
[2024-08-29 11:13] LABS: HCT 27.4 % (39.6-50.0); HGB 9.2 g/dL (13.0-17.0); MCH 29.6 pg (27.0-32.0); MCHC 33.6 g/dL (32.0-37.0); MCV 88.1 fL (80.0-97.0); Mean Platelet Volume 8.8 fL (9.5-12.2); Platelet Count 301 10*3/uL (140-440); RBC 3.11 10*6/uL (4.40-5.60); RDW 15.4 % (11.5-14.5); WBC 11.91 10*3/uL (4.50-10.00)
[2024-08-29 11:45] LABS: African American GFR (CKD) >90 (>60 ml/min/1.73 sqM); Anion Gap 5 mmol/L; Blood Urea Nitrogen 11 mg/dL (9-20); Calcium 8.8 mg/dL (8.4-10.2); Carbon Dioxide 34 mmol/L (22-30); Chloride 93 mmol/L (98-107); Glucose 106 mg/dL (74-99); Magnesium 1.7 mg/dL (1.6-2.3); Non-African American GFR(CKD) >90 (>60 ml/min/1.73 sqM); Potassium 3.8 mmol/L (3.5-5.1); Sodium 132 mmol/L (137-145)
[2024-08-29 11:47] LABS: Glucose,Whole Blood 121 mg/dL (70-110)
[2024-08-29 11:57] LABS: Band Neutrophils % 1 %; Eosinophils # (M) 0.12 k/uL (0-0.7); Lymphocytes # (M) 1.43 k/uL (1.0-4.8); Metamyelocytes # (M) 0.24 k/uL (0); Metamyelocytes % 2 %; Myelocytes # (M) 0.24 k/uL (0); Myelocytes % 2 %; Neutrophils # (M) 9.64 k/uL (1.3-7.7); Neutrophils % (M) 80 %; Nucleated Red Blood Cells 0 /100 WBC (0-0); Total Cells Counted 200
[2024-08-29 11:58] LABS: Anisocytosis (M) Present
[2024-08-29 12:00] LABS: Stomatocytes Present
--- NOTE | 2024-08-29 14:35 | P.PN ---
Subjective Progress Note Date: 08/29/24 This is a 79-year-old male patient well-known to our service as he has had 17 admissions to the hospital since February 2024, not including multiple ER visits. He has a history of oxygen dependent chronic obstructive pulmonary disease, pulmonary emboli, chronic back pain, coronary disease with previous s tent placement, chronic tobacco dependence, hypertension, hyperlipidemia. He presented here to the emergency room on 08/24/2024 after sustaining a fall at home hitting his head. He developed a hematoma to the right parietal region. He had denied any loss of consciousness. He is anticoagulated with warfarin. He came in regarding continued headache. Cranial process. Right scalp subcutaneous and edema. No evidence of fracture. No cervical fracture. Chest x-ray reveals no acute pulmonary process. Lumbar spine x-ray revealed no acute fracture. Moderate multilevel disc degeneration white count 8.8. Hemoglobin 9.1. Platelets 289. Sodium 128. Potassium 4.1. Bicarb 34. BUN 12. Creat inine 0.68. Glucose 104. Viral screening for influenza A/B, RSV and COVID were negative. He is seen today in consultation on the regular medical floor. He is currently sitting up at the bedside. Awake and alert in no acute distress. He denies any worsening shortness of breath, cough or congestion. We mentioned he might need placement due to his frequent readmissions and ability to care for himself. He was extremely angry and adamant that he is going back home at discharge. The patient is seen today August 28, 2024 in follow-up on the regular medical floor. He is currently resting in bed. Awake and alert in no acute distress. Maintaining O2 saturations in the 90s on 4 L/min per nasal cannula. He has been afebrile. Hemodynamically stable. White count 11.8. Hemoglobin 9.5. Platel ets 280. Sodium 132. Potassium 3.7. Bicarb 32. BUN 11. Creatinine 0.65. Glucose 105. He remains on DuoNeb inhalations, Symbicort, prednisone taper. Empiric antibiotics in the form of azithromycin. Heparin for DVT prophylaxis. The patient is seen today August 29, 2024 in follow-up on the regular medical floor. He is currently awake and alert in no acute distress. Resting comfortably in bed. Denies any worsening shortness of breath, cough or congestion. Maintaining O2 saturations in the 90s on 4 L/min per nasal cannula. Denies any headache. He remains on DuoNeb inhalations, Symbicort, prednisone taper. Heparin for DVT prophylaxis. White count 11.9. Hemoglobin 9.2. Platelets 301. Sodium 132. Potassium 3.8. Bicarb 34. BUN 11. Creatinine 0.68. Glucose 106. Troponin 0.051. EKG reveals sinus mechanism. No significant ST or T wave abnormalities. Objective - Vital Signs Vital signs: Vital Signs Temp 98.6 F 08/29/24 06:48 Pulse 101 H 08/29/24 09:24 Resp 17 08/29/24 09:24 BP 98/54 08/29/24 06:48 Pulse Ox 100 08/29/24 06:48 FiO2 Intake & Output 08/28/24 08/29/24 08/29/24 18:59 06:59 18:59 Intake Total 480 Output Total 700 1600 Balance -700 -1120 Intake: Oral 480 Output: Urine 700 1600 Other: Voiding Method Urinal Urinal # Voids 1 # Bowel Movements 1 - Exam GENERAL EXAM: Alert, 79-year-old male, resting in bed, on 4 L nasal cannula, comfortable in no apparent distress. HEAD: Normocephalic. Hematoma over right eye. EYES: Normal reaction of pupils, equal size. NOSE: Clear with pink turbinates. THROAT: No erythema or exudates. NECK: No masses, no JVD. CHEST: No chest wall deformity. LUNGS: Equal air entry with no crackles, wheeze, rhonchi or dullness. Diminished CVS: S1 and S2 normal with no audible murmur, regular rhythm. ABDOMEN: No hepatosplenomegaly, normal bowel sounds, no guarding or rigidity. SPINE: No scoliosis or deformity SKIN: Multiple areas of ecchymosis and bruising. No rashes CENTRAL NERVOUS SYSTEM: No focal deficits, tone is normal in all 4 extremities. EXTREMITIES: There is no peripheral edema. No clubbing, no cyanosis. Peripheral pulses are intact. - Labs CBC & Chem 7: 08/29/24 10:49 08/29/24 10:49 Labs: Abnormal Lab Results - Last 24 Hours (Table) 08/26/24 08/28/24 08/28/24 Range/Units 03:46 16:43 19:47 WBC (4.50-10.00) 10*3/uL RBC (4.40-5.60) 10*6/uL Hgb (13.0-17.0) g/dL Hct (39.6-50.0) % RDW (11.5-14.5) % MPV (9.5-12.2) fL Immature Gran # (0.00-0.04) 10*3/uL Neutrophils # (Manual) (1.3-7.7) k/uL Metamyelocytes # (Man) (0) k/uL Myelocytes # (Manual) (0) k/uL Promyelocytes # (Man) 0.09 H (0) k/uL Sodium (137-145) mmol/L Chloride (98-107) mmol/L Carbon Dioxide (22-30) mmol/L Glucose (74-99) mg/dL POC Glucose (mg/dL) 255 H 124 H (70-110) mg/dL Troponin I (0.000-0.034) ng/mL 08/29/24 08/29/24 08/29/24 Range/Units 06:15 10:49 10:49 WBC 11.91 H (4.50-10.00) 10*3/uL RBC 3.11 L (4.40-5.60) 10*6/uL Hgb 9.2 L (13.0-17.0) g/dL Hct 27.4 L (39.6-50.0) % RDW 15.4 H (11.5-14.5) % MPV 8.8 L (9.5-12.2) fL Immature Gran # 1.33 H (0.00-0.04) 10*3/uL Neutrophils # (Manual) 9.64 H (1.3-7.7) k/uL Metamyelocytes # (Man) 0.24 H (0) k/uL Myelocytes # (Manual) 0.24 H (0) k/uL Promyelocytes # (Man) (0) k/uL Sodium 132 L (137-145) mmol/L Chloride 93 L (98-107) mmol/L Carbon Dioxide 34 H (22-30) mmol/L Glucose 106 H (74-99) mg/dL POC Glucose (mg/dL) 130 H (70-110) mg/dL Troponin I (0.000-0.034) ng/mL 08/29/24 08/29/24 Range/Units 10:49 11:45 WBC (4.50-10.00) 10*3/uL RBC (4.40-5.60) 10*6/uL Hgb (13.0-17.0) g/dL Hct (39.6-50.0) % RDW (11.5-14.5) % MPV (9.5-12.2) fL Immature Gran # (0.00-0.04) 10*3/uL Neutrophils # (Manual) (1.3-7.7) k/uL Metamyelocytes # (Man) (0) k/uL Myelocytes # (Manual) (0) k/uL Promyelocytes # (Man) (0) k/uL Sodium (137-145) mmol/L Chloride (98-107) mmol/L Carbon Dioxide (22-30) mmol/L Glucose (74-99) mg/dL POC Glucose (mg/dL) 121 H (70-110) mg/dL Troponin I 0.051 H* (0.000-0.034) ng/mL Assessment and Plan Assessment: Headache status post fall with head injury with right sided hematoma over the right eye Chronic hypoxemic respiratory failure secondary to severe COPD History of chronic tobacco dependence Hyponatremia, chronic Anemia of chronic disease Hyperlipidemia Congestive heart failure, systolic, ejection fraction 40% Paroxysmal atrial fibrillation Hypertension Diabetes mellitus, type II Multiple, multiple admissions to the hospital Poor overall functional performance based on the above-mentioned multiple comorbidities Plan: The patient was seen and evaluated Labs and medications reviewed Currently stable on 4 L nasal cannula Continue DuoNeb inhalations, Symbicort Continue a prednisone taper Heparin for DVT prophylaxis Protonix for GI prophylaxis Legal guardianship obtained Case management working on placement I have personally seen and examined the patient, performed the documentation and the assessment and plan as written. Number of minutes spent on the visit: 10 Dictation was produced using [employer] dictation software. Please excuse any grammatical, word or spelling errors.
[2024-08-29 16:50] LABS: Glucose,Whole Blood 170 mg/dL (70-110)
[2024-08-29] MEDS ORDERED: Magnesium Replacement Protocol 1 EACH MISC MISCELLANE PRN (18:36)
[2024-08-29] MEDS ORDERED: HEPARIN SODIUM 1,000 UN/ML (10ML VL) IV PRN (18:42)
[2024-08-29] MEDS: NITROGLYCERIN SL TABS 0.4 MG TAB SUBLINGUAL PRN (18:44)
[2024-08-29] MEDS: ASPIRIN 81 MG PO SCH (19:17)
[2024-08-29 20:01] LABS: INR 0.9 (<1.2); Partial Thromboplastin Time 23.5 sec (22.0-30.0); Prothrombin Time 10.1 sec (10.0-12.5)
[2024-08-29] MEDS: NITROGLYCERIN OINT 1 INCH/GM PACKET TOPICAL SCH (20:17)
[2024-08-29] MEDS: HEPARIN SODIUM 1,000 UN/ML (10ML VL) IV ONE (20:18)
[2024-08-29] MEDS: MAGNESIUM SULFATE-D5W PMX 1 GM in DEXTROSE/WATER 1 100ML.BAG IVPB ONE (20:18)
[2024-08-29] MEDS: HEPARIN SOD,PORK IN 0.45% NACL 25,000 UNIT in 0.45% NACL 1 250ML.BAG IV SCH (20:18)
[2024-08-29 20:20] LABS: Glucose,Whole Blood 117 mg/dL (70-110)
[2024-08-29] MEDS ORDERED: MORPHINE SULFATE 4 MG/ML SYRINGE IVP PRN (22:34)
[2024-08-30 07:20] LABS: African American GFR (CKD) >90 (>60 ml/min/1.73 sqM); Anion Gap 2 mmol/L; Blood Urea Nitrogen 11 mg/dL (9-20); Calcium 8.3 mg/dL (8.4-10.2); Carbon Dioxide 32 mmol/L (22-30); Chloride 95 mmol/L (98-107); Glucose 105 mg/dL (74-99); Magnesium 1.8 mg/dL (1.6-2.3); Non-African American GFR(CKD) >90 (>60 ml/min/1.73 sqM); Potassium 3.9 mmol/L (3.5-5.1); Sodium 129 mmol/L (137-145)
[2024-08-30 07:27] LABS: HCT 28.1 % (39.6-50.0); HGB 9.2 g/dL (13.0-17.0); MCH 28.9 pg (27.0-32.0); MCHC 32.7 g/dL (32.0-37.0); MCV 88.4 fL (80.0-97.0); Mean Platelet Volume 9.4 fL (9.5-12.2); Platelet Count 325 10*3/uL (140-440); RBC 3.18 10*6/uL (4.40-5.60); RDW 15.2 % (11.5-14.5)
[2024-08-30 07:38] LABS: INR 0.9 (<1.2); Partial Thromboplastin Time 30.5 sec (22.0-30.0); Prothrombin Time 10.5 sec (10.0-12.5)
[2024-08-30 08:07] LABS: Anisocytosis (M) Present; Lymphocytes # (M) 1.92 k/uL (1.0-4.8); Monocytes # (M) 1.33 k/uL (0-1.0); Myelocytes # (M) 0.44 k/uL (0); Myelocytes % 3 %; Neutrophils # (M) 11.25 k/uL (1.3-7.7); Neutrophils % (M) 76 %; Nucleated Red Blood Cells 0 /100 WBC (0-0); Poikilocytosis (M) Present; Total Cells Counted 200
[2024-08-30] MEDS: METOPROLOL TARTRATE 25 MG TAB PO STA (11:37)
[2024-08-30 11:57] LABS: Glucose,Whole Blood 153 mg/dL (70-110)
--- NOTE | 2024-08-30 12:06 | P.CRDCN ---
History of Present Illness Consult date: 08/30/24 Consult reason: chest pain History of present illness: This is 79-year-old male patient of Dr. Genet Rocha with past medical history of coronary artery disease status post angioplasty of the right coronary artery, hypertension, dyslipidemia, COPD, diabetes mellitus type 2, hypertension, hyperlipidemia, chronic systolic heart failure with known EF 40%, paroxysmal atrial fibrillation. We have been asked to evaluate the patient for chest pain. Patient has had 17 hospitalizations since February 2024. He was last seen by cardiology on a hospitalization in July of this year at which time he presented with generalized weakness found to have influenza A and elevated troponins that were flat pattern and diagnosed with type II NE secondary to influenza along with acute on chronic heart failure with reduced EF. Patient presented to the hospital on 08/24 with complaints of generalized weakness and had multiple falls at home. Patient has a hematoma on the right scalp, and apparently found to be in atrial fibrillation. Patient states he has right sided chest pain. Patient has been started on heparin drip and waiting for CTA of the chest to rule out PE. Blood pressure 147/82, heart rate 88, pulse ox 100% on 3 L nasal cannula. Patient was last seen in the office with Dr. Camacho in in July 2023. -EKG: #1 atrial fibrillation 115 bpm, other EKGs reviewed with sinus rhythm and PACs, atrial bigeminy -Chest x-ray: Cardiomegaly with small left pleural effusion. -Laboratory studies: WBC 14.8, hemoglobin 9.2. Sodium 129, BUN 11, creatinine 0.65. Troponin 0.035, 0.045, 0.043. proBNP 1740. Procalcitonin less than 0.2. proBNP 787 -Home cardiac medications: Aspirin 81 mg daily, Lasix 40 mg daily, metoprolol tartrate 25 mg twice daily, simvastatin 40 mg at bedtime, spironolactone 25 mg daily -Echocardiogram performed 07/17/2024 revealed EF 40 to 45% with mild to moderate pulmonary hypertension. - Lexiscan Cardiolite stress test performed in the office on 08/17/2023 revealed inconclusive EKG part of the stress test due to baseline EKG abnormalities. Normal myocardial perfusion and function. Review Of Systems: At the time of my exam: CONSTITUTIONAL: Denies fever or chills. Reports weakness HEENT: Denies blurred vision, vision changes, or eye pain. Denies hemoptysis CARDIOVASCULAR: Denies chest pain. Denies orthopnea. Denies PND. Denies palpitations RESPIRATORY: Denies shortness of breath. GASTROINTESTINAL: Denies abdominal pain. Denies nausea or vomiting. HEMATOLOGIC: Denies bleeding disorders. GENITOURINARY: Denies any blood in urine. SKIN: Denies puritis. Denies rash. Physical examination: Gen: This is 79-year-old morbidly obese male in no acute distress VS: reviewed HEENT: Head is atraumatic, normocephalic. Pupils equal, round. Sclerae is anicteric. NECK: Supple. No JVD. LUNGS: Clear to auscultation. No wheezes or rhonchi. No intercostal retractions. HEART: Regular rate and rhythm. No murmur. ABDOMEN: Soft No tenderness. EXTREMITIES: No pedal edema. No calf tenderness. NEUROLOGICAL: Patient is awake, alert and oriented x3. Assessment: Atypical chest pain, acute coronary syndrome ruled out Flat troponin pattern not indicative of acute coronary syndrome, type II NE from A-fib with RVR and COPD exacerbation Head injury secondary to fall at home Multiple falls COPD exacerbation Chronic hypoxic respiratory failure on home O2 at 3 L nasal cannula Chronic systolic heart failure with EF 40% Paroxysmal atrial fibrillation not on anticoagulation this is most likely due to multiple falls Coronary artery disease status post angioplasty of the right coronary artery Hypertension Dyslipidemia Chronic anemia Hyponatremia Morbid obesity with BMI of 40 Elevated D-dimer, patient is waiting for CTA chest Plan: Continue current cardiac medications No plan for any cardiac procedures at this time No need to repeat echocardiogram Patient will need to be considered for anticoagulation once medically cleared Further recommendations to follow based upon clinical course Thank you kindly for this consultation. Nurse practitioner note has been reviewed, I agree with documented findings and plan of care. Patient was seen and examined. Past Medical History Past Medical History: Coronary Artery Disease (CAD), COPD, GERD/Reflux, Hyperlipidemia, Hypertension, Myocardial Infarction (NE), Pulmonary Embolus (PE), Renal Disease Additional Past Medical History / Comment(s): home O2 (3L [place] HS), bilateral PEs in 2003, history ETOH abuse - pt states he has never had withdrawal symptoms, chronic low back pain/sciatica/spurs/disc disease - much improved after back injections, past urinary retention, diverticulitis/benign colon polyps removed, nephrolithiasis - passed stones on his own, shingelles 16 years ago - R shoulder. Last Myocardial Infarction Date:: 2010 History of Any Multi-Drug Resistant Organisms: None Reported Past Surgical History: Heart Catheterization With Stent Additional Past Surgical History / Comment(s): back injections for pain, piece of metal removed from right eye, EGD, colonoscopy Past Anesthesia/Blood Transfusion Reactions: No Reported Reaction Additional Past Anesthesia/Blood Transfusion Reaction / Comment(s): claustrophobia Date of Last Stent Placement:: 2010 Past Psychological History: Anxiety, Depression, PTSD Smoking Status: Former smoker Past Alcohol Use History: None Reported Past Drug Use History: None Reported - Past Family History Mother Family Medical History: Cancer Additional Family Medical History / Comment(s): from breast cancer at age 53. Father Family Medical History: Coronary Artery Disease (CAD), Myocardial Infarction (NE) Additional Family Medical History / Comment(s): 4 MIs/CABG. at age 72. Medications and Allergies Home Medications Medication Instructions Recorded Confirmed Type Aspirin EC [Ecotrin Low Dose] 81 mg PO DAILY 06/22/18 08/25/24 History Budesonide/Formoterol Fumarate 2 puff INHALATION RT-BID 06/22/18 08/25/24 History [Symbicort 160-4.5 Mcg Inhaler] Ipratropium/Albuterol Sulfate 1 puff INHALATION RT-QID 06/22/18 08/25/24 History [Combivent Respimat Inhaler] Metoprolol Tartrate [Lopressor] 25 mg PO BID 06/22/18 08/25/24 History Clopidogrel Bisulfate [Plavix] 75 mg PO DAILY 07/01/18 08/25/24 History Albuterol Inhaler [Ventolin Hfa 2 puff INHALATION RT-TID PRN 12/07/19 08/25/24 History Inhaler] Albuterol Nebulized [Ventolin 2.5 mg INHALATION RT-QID 12/07/19 08/25/24 History Nebulized] Loratadine [Claritin] 10 mg PO DAILY 12/07/19 08/25/24 History Simvastatin [Zocor] 40 mg PO HS 12/07/19 08/25/24 History Tiotropium 18 Mcg/Puff [Spiriva] 2 puff INHALATION RT-DAILY 12/07/19 08/25/24 History Cholecalciferol [Vitamin D3 (25 25 mcg PO BID 03/17/24 08/25/24 History Mcg = 1000 Iu)] Furosemide [Lasix] 40 mg PO DAILY 04/16/24 08/25/24 History Spironolactone [Aldactone] 25 mg PO DAILY #90 tab 06/24/24 08/25/24 Rx HYDROcodone/APAP 5-325MG [[place] 1 tab PO TID PRN 07/28/24 08/25/24 History 5-325] Meloxicam [Mobic] 7.5 mg PO DAILY 07/28/24 08/25/24 History Ondansetron Odt [Zofran ODT] 4 mg PO Q8HR PRN 07/28/24 08/25/24 History Ferrous Sulfate [Iron (65 MG 325 mg PO W/LUNCH 14 Days #14 tab 08/04/24 08/25/24 Rx Elemental)] Folic Acid 1 mg PO DAILY 14 Days #14 tab 08/04/24 08/25/24 Rx Ascorbic Acid [Vitamin C] 1,000 mg PO W/LUNCH #90 tab 08/23/24 08/25/24 Rx predniSONE [Deltasone] 40 mg PO DAILY #6 tab 08/23/24 08/25/24 Rx Allergies Allergy/AdvReac Type Severity Reaction Status Date / Time fluticasone AdvReac Nausea Verified 08/25/24 10:27 [From [facility]] levofloxacin [From Levaquin] AdvReac TENDON PAIN Verified 08/25/24 10:27 salmeterol AdvReac Nausea Verified 08/25/24 10:27 [From [facility]] Physical Exam Vitals: Vital Signs Temp Pulse Pulse Resp BP Pulse Ox 08/30/24 03:13 81 18 08/29/24 23:10 69 22 08/29/24 20:30 101 H 109 H 08/29/24 19:45 98.1 F 109 H 20 121/63 93 L 08/29/24 18:17 105 H 22 133/75 08/29/24 14:50 97.6 F 83 17 94/60 98 Intake and Output 08/29/24 08/30/24 08/30/24 22:59 06:59 14:59 Intake Total 1040 68.833 Output Total 300 Balance 1040 -231.167 Intake: Intake, IV Titration 68.833 Amount Heparin Sod,Pork in 0.45% 68.833 NaCl 25,000 unit In 0.45 % NaCl 1 250ml.bag @ 8. 8185 UNITS/KG/HR 10 mls/ hr IV .Q24H [facility] Rx#: [id number] Oral 1040 Output: Urine 300 Other: Voiding Method Urinal # Voids 4 # Bowel Movements 1 Results 08/30/24 06:17 08/30/24 06:17 Cardiac Enzymes 08/29/24 08/29/24 08/29/24 Range/Units 10:49 14:08 17:07 Troponin I 0.051 H* 0.038 H* 0.031 (0.000-0.034) ng/mL 08/29/24 08/30/24 Range/Units 19:14 06:17 Troponin I 0.035 H* 0.045 H* (0.000-0.034) ng/mL Coagulation 08/29/24 08/30/24 Range/Units 19:14 06:17 PT 10.1 10.5 (10.0-12.5) sec APTT 23.5 30.5 H (22.0-30.0) sec CBC 08/29/24 08/30/24 Range/Units 10:49 06:17 WBC 11.91 H 14.80 H (4.50-10.00) 10*3/uL RBC 3.11 L 3.18 L (4.40-5.60) 10*6/uL Hgb 9.2 L 9.2 L (13.0-17.0) g/dL Hct 27.4 L 28.1 L (39.6-50.0) % Plt Count 301 325 (140-440) 10*3/uL Comprehensive Metabolic Panel 08/29/24 08/30/24 Range/Units 10:49 06:17 Sodium 132 L 129 L (137-145) mmol/L Potassium 3.8 3.9 (3.5-5.1) mmol/L Chloride 93 L 95 L (98-107) mmol/L Carbon Dioxide 34 H 32 H (22-30) mmol/L BUN 11 11 (9-20) mg/dL Creatinine 0.68 0.65 L (0.66-1.25) mg/dL Glucose 106 H 105 H (74-99) mg/dL Calcium 8.8 8.3 L (8.4-10.2) mg/dL Current Medications Generic Name Dose Route Start Last Admin Trade Name Peterq PRN Reason Stop Dose Admin Acetaminophen 650 mg 08/24/24 22:05 Acetaminophen Tab 325 Mg Tab PO Q6HR PRN Mild Pain or Fever > 100.5 Hydrocodone Bitart/Acetaminophen 1 each 08/25/24 03:15 08/29/24 17:39 Hydrocodone/Apap 5-325mg 1 Each Tab PO 1 each TID PRN Administration Pain Albuterol Sulfate 2.5 mg 08/25/24 11:20 Albuterol Nebulized 2.5 Mg/3 Ml INHALATION RT-TID PRN Shortness Of Breath Albuterol/Ipratropium 3 ml 08/25/24 12:00 08/30/24 09:55 Ipratropium-Albuterol 3 Ml Neb INHALATION Not Given RT-QID [facility] Albuterol/Ipratropium 3 ml 08/26/24 08:50 Ipratropium-Albuterol 3 Ml Neb INHALATION RT-Q2H PRN Shortness Of Breath Or Wheezing Ascorbic Acid 1,000 mg 08/25/24 12:30 08/29/24 12:00 Ascorbic Acid 500 Mg Tab PO 1,000 mg W/LUNCH [facility] Administration Aspirin 81 mg 08/29/24 19:15 08/30/24 09:29 Aspirin 81 Mg PO 81 mg DAILY [facility] Administration Atorvastatin Calcium 20 mg 08/25/24 21:00 08/29/24 20:17 Atorvastatin 20 Mg Tab PO 20 mg HS [facility] Administration Budesonide/Formoterol Fumarate 2 puff 08/25/24 08:00 08/30/24 09:55 Symbicort 160-4.5 Mcg Inhaler INHALATION Not Given RT-BID [facility] Cholecalciferol 25 mcg 08/25/24 21:00 08/30/24 09:29 Cholecalciferol 25 Mcg (1000 Iu) Tablet PO 25 mcg BID [facility] Administration Clopidogrel Bisulfate 75 mg 08/25/24 09:00 08/30/24 09:29 Clopidogrel 75 Mg Tab PO 75 mg DAILY [facility] Administration Dextrose/Water 50 ml 08/25/24 03:18 Dextrose 50% Syringe 50 Ml IVP PER PROTOCOL PRN Hypoglycemia Protocol Dextrose/Water 25 ml 08/25/24 03:18 Dextrose 50% Syringe 50 Ml IVP PER PROTOCOL PRN Hypoglycemia Protocol Ferrous Sulfate 325 mg 08/25/24 12:30 08/29/24 12:00 Ferrous Sulfate 325 Mg Tab PO 325 mg W/LUNCH [facility] Administration Folic Acid 1 mg 08/26/24 09:00 08/30/24 09:29 Folic Acid 1 Mg Tab PO 1 mg DAILY [facility] Administration Heparin Sodium (Porcine) 0 unit 08/29/24 18:42 Heparin Sodium 1,000 Un/Ml (10ml Vl) IV PER PROTOCOL PRN Low PTT Protocol Heparin Sodium/Sodium Chloride 250 mls @ 10 mls/hr 08/29/24 18:45 08/30/24 03:11 25,000 unit/ Sodium Chloride IV 0 units/kg/hr .Q24H [facility] 0 mls/hr Titration Protocol 8.8185 UNITS/KG/HR Insulin Human Lispro 0 unit 08/25/24 07:30 08/30/24 06:38 Insulin Lispro (Humalog) 100 Unit/Ml 10 Ml Vl SQ Not Given ACHS [facility] Protocol Loratadine 10 mg 08/26/24 09:00 08/30/24 09:29 Loratadine 10 Mg Tab PO 10 mg DAILY [facility] Administration Melatonin 5 mg 08/27/24 21:00 08/29/24 20:17 Melatonin 5 Mg Tablet PO 5 mg HS [facility] Administration Metoprolol Tartrate 25 mg 08/25/24 09:00 08/30/24 09:29 Metoprolol Tartrate 25 Mg Tab PO 25 mg BID [facility] Administration Miscellaneous Information 1 each 08/29/24 18:36 Magnesium Replacement Protocol 1 Each Misc MISCELLANE DAILY PRN Per Protocol Protocol Morphine Sulfate 4 mg 08/29/24 22:34 Morphine Sulfate 4 Mg/Ml Syringe IVP Q4HR PRN Pain Naloxone HCl 0.2 mg 08/24/24 22:05 Naloxone 0.4 Mg/Ml 1 Ml Vial IV Q2M PRN Opioid Reversal Nitroglycerin 0.5 inch 08/29/24 18:45 08/30/24 06:38 Nitroglycerin Oint 1 Inch/Gm Packet TOPICAL Not Given Q6HR [facility] Nitroglycerin 0.4 mg 08/29/24 18:32 08/29/24 19:17 Nitroglycerin Sl Tabs 0.4 Mg Tab SUBLINGUAL 0.4 mg Q5M PRN Administration Chest Pain Pantoprazole Sodium 40 mg 08/25/24 07:30 08/30/24 06:38 Pantoprazole 40 Mg Tablet PO Not Given AC-BID [facility] Petrolatum 1 applic 08/27/24 03:08 Zinc Oxide Paste (Z-Guard) 1 Applic TOPICAL BID PRN Skin Irritation Protocol Prednisone 40 mg 08/26/24 10:15 08/30/24 09:29 Prednisone 20 Mg Tab PO 40 mg DAILY [facility] Administration Intake and Output 08/29/24 08/30/24 08/30/24 22:59 06:59 14:59 Intake Total 1040 68.833 Output Total 300 Balance 1040 -231.167 Intake: Intake, IV Titration 68.833 Amount Heparin Sod,Pork in 0.45% 68.833 NaCl 25,000 unit In 0.45 % NaCl 1 250ml.bag @ 8. 8185 UNITS/KG/HR 10 mls/ hr IV .Q24H [facility] Rx#: [id number] Oral 1040 Output: Urine 300 Other: Voiding Method Urinal # Voids 4 # Bowel Movements 1 08/30/24 06:17 08/30/24 06:17
--- NOTE | 2024-08-30 12:09 | P.PN ---
Subjective Progress Note Date: 08/30/24 Principal diagnosis: Fall. This is a 79-year-old male patient well-known to our service as he has had 17 admissions to the hospital since February 2024, not including multiple ER visits. He has a history of oxygen dependent chronic obstructive pulmonary disease, pulmonary emboli, chronic back pain, coronary disease with previous stent placement, chronic tobacco dependence, hypertension, hyperlipidemia. He presented here to the emergency room on 08/24/2024 after sustaining a fall at home hitting his head. He developed a hematoma to the right parietal region. He had denied any loss of consciousness. He is anticoagulated with warfarin. He came in regarding continued headache. Cranial process. Right scalp subcutaneous and edema. No evidence of fracture. No cervical fracture. Chest x-ray reveals no acute pulmonary process. Lumbar spine x-ray revealed no acute fracture. Moderate multilevel disc degeneration white count 8.8. Hemoglobin 9.1. Platelets 289. Sodium 128. Potassium 4.1. Bicarb 34. BUN 12. Creatinine 0.68. Glucose 104. Viral screening for influenza A/B, RSV and COVID were negative. He is seen today in consultation on the regular medical floor. He is currently sitting up at the bedside. Awake and alert in no acute distress. He denies any worsening shortness of breath, cough or congestion. We mentioned he might need placement due to his frequent readmissions and ability to care for himself. He was extremely angry and adamant that he is going back home at discharge. The patient is seen today August 28, 2024 in follow-up on the regular medical floor. He is currently resting in bed. Awake and alert in no acute distress. Maint aining O2 saturations in the 90s on 4 L/min per nasal cannula. He has been afebrile. Hemodynamically stable. White count 11.8. Hemoglobin 9.5. Platelets 280. Sodium 132. Potassium 3.7. Bicarb 32. BUN 11. Creatinine 0.65. Glucose 105. He remains on DuoNeb inhalations, Symbicort, prednisone taper. Empiric antibiotics in the form of azithromycin. Heparin for DVT prophylaxis. The patient is seen today August 29, 2024 in follow-up on the regular medical floor. He is currently awake and alert in no acute distress. Resting comfortably in bed. Denies any worsening shortness of breath, cough or congestion. Maintaining O2 saturations in the 90s on 4 L/min per nasal cannula. Denies any headache. He remains on DuoNeb inhalations, Symbicort, prednisone taper. Heparin for DVT prophylaxis. White count 11.9. Hemoglobin 9.2. Platelets 301. Sodium 132. Potassium 3.8. Bicarb 34. BUN 11. Creatinine 0.68. Glucose 106. Troponin 0.051. EKG reveals sinus mechanism. No significant ST or T wave abnormalities. Progress note dated August 30, 2024. 79-year-old male seen today in room 385. The patient is awake and alert. He is in no acute distress. He is sitting at the side of the bed. Patient is currently on 3 L of oxygen. There is no wheezing or coughing. No use of accessory muscles. No conversational dyspnea. The patient is being evaluated for possible discharge, to a penitentiary, up in [place], [place]. Current labs include a white count of 14.8, hemoglobin 9.2, hematocrit 28.1, and a platelet count of 3 25,000. Sodium 129, potassium 3.9, chlorides 95, CO2 32, BUN 11, creatinine 0.65. Glucose is 153. Calcium is 8.3. Troponins were 0.035, 0.045, 0.043. N-terminal proBNP was 1740. Procalcitonin level was normal. Objective - Vital Signs Vital signs: Vital Signs Temp 98.1 F 08/29/24 19:45 Pulse 101 H 08/30/24 08:30 Resp 18 08/30/24 08:30 BP 147/82 08/30/24 08:30 Pulse Ox 100 08/30/24 08:30 FiO2 Intake & Output 08/29/24 08/30/24 08/30/24 18:59 06:59 18:59 Intake Total 800 308.833 0 Output Total 300 Balance 800 8.833 0 Intake: Intake, IV Titration 68.833 0 Amount Heparin Sod,Pork in 0.45% 68.833 0 NaCl 25,000 unit In 0.45 % NaCl 1 250ml.bag @ 8. 8185 UNITS/KG/HR 10 mls/ hr IV .Q24H CYNDI Rx#: [id number] Oral 800 240 Output: Urine 300 Other: Voiding Method Urinal Urinal # Voids 4 # Bowel Movements 1 - Exam No acute distress, oriented 3. HEENT examination is grossly unremarkable. Mucous membranes are moist. No oral lesions. Hematoma over right eye. Neck supple. Full range of motion. No adenopathy thyromegaly or neck vein distention. Cardiovascular examination reveals regular rhythm rate. S1-S2 normal. No S3 or S4. No discernible murmur noted. Lungs reveal clear breath sounds. Breath sounds are equal bilaterally. No adventitious lung sounds including wheezes rhonchi or crackles. Abdomen soft bowel sounds are heard. No masses or tenderness. Extremities are intact. No cyanosis clubbing or edema. Skin reveals multiple areas of ecchymoses and bruising. Neurologic examination is brief but nonfocal. - Labs CBC & Chem 7: 08/30/24 06:17 08/30/24 06:17 Labs: Abnormal Lab Results - Last 24 Hours (Table) 08/29/24 08/29/24 08/29/24 Range/Units 14:08 16:36 19:14 WBC (4.50-10.00) 10*3/uL RBC (4.40-5.60) 10*6/uL Hgb (13.0-17.0) g/dL Hct (39.6-50.0) % MPV (9.5-12.2) fL Immature Gran # (0.00-0.04) 10*3/uL Neutrophils # (Manual) (1.3-7.7) k/uL Monocytes # (Manual) (0-1.0) k/uL Myelocytes # (Manual) (0) k/uL APTT (22.0-30.0) sec Sodium (137-145) mmol/L Chloride (98-107) mmol/L Carbon Dioxide (22-30) mmol/L Creatinine (0.66-1.25) mg/dL Glucose (74-99) mg/dL POC Glucose (mg/dL) 170 H (70-110) mg/dL Calcium (8.4-10.2) mg/dL Troponin I 0.038 H* 0.035 H* (0.000-0.034) ng/mL 08/29/24 08/30/24 08/30/24 Range/Units 20:18 06:17 06:17 WBC (4.50-10.00) 10*3/uL RBC (4.40-5.60) 10*6/uL Hgb (13.0-17.0) g/dL Hct (39.6-50.0) % MPV (9.5-12.2) fL Immature Gran # (0.00-0.04) 10*3/uL Neutrophils # (Manual) (1.3-7.7) k/uL Monocytes # (Manual) (0-1.0) k/uL Myelocytes # (Manual) (0) k/uL APTT 30.5 H (22.0-30.0) sec Sodium 129 L (137-145) mmol/L Chloride 95 L (98-107) mmol/L Carbon Dioxide 32 H (22-30) mmol/L Creatinine 0.65 L (0.66-1.25) mg/dL Glucose 105 H (74-99) mg/dL POC Glucose (mg/dL) 117 H (70-110) mg/dL Calcium 8.3 L (8.4-10.2) mg/dL Troponin I (0.000-0.034) ng/mL 08/30/24 08/30/24 08/30/24 Range/Units 06:17 06:17 09:25 WBC 14.80 H (4.50-10.00) 10*3/uL RBC 3.18 L (4.40-5.60) 10*6/uL Hgb 9.2 L (13.0-17.0) g/dL Hct 28.1 L (39.6-50.0) % MPV 9.4 L (9.5-12.2) fL Immature Gran # 1.36 H (0.00-0.04) 10*3/uL Neutrophils # (Manual) 11.25 H (1.3-7.7) k/uL Monocytes # (Manual) 1.33 H (0-1.0) k/uL Myelocytes # (Manual) 0.44 H (0) k/uL APTT (22.0-30.0) sec Sodium (137-145) mmol/L Chloride (98-107) mmol/L Carbon Dioxide (22-30) mmol/L Creatinine (0.66-1.25) mg/dL Glucose (74-99) mg/dL POC Glucose (mg/dL) (70-110) mg/dL Calcium (8.4-10.2) mg/dL Troponin I 0.045 H* 0.043 H* (0.000-0.034) ng/mL 08/30/24 Range/Units 11:54 WBC (4.50-10.00) 10*3/uL RBC (4.40-5.60) 10*6/uL Hgb (13.0-17.0) g/dL Hct (39.6-50.0) % MPV (9.5-12.2) fL Immature Gran # (0.00-0.04) 10*3/uL Neutrophils # (Manual) (1.3-7.7) k/uL Monocytes # (Manual) (0-1.0) k/uL Myelocytes # (Manual) (0) k/uL APTT (22.0-30.0) sec Sodium (137-145) mmol/L Chloride (98-107) mmol/L Carbon Dioxide (22-30) mmol/L Creatinine (0.66-1.25) mg/dL Glucose (74-99) mg/dL POC Glucose (mg/dL) 153 H (70-110) mg/dL Calcium (8.4-10.2) mg/dL Troponin I (0.000-0.034) ng/mL Assessment and Plan Assessment: Headache, S/P fall with head injury and hematoma over the right eye. Chronic hypoxemic respiratory failure secondary to severe COPD. History of chronic tobacco dependence. Hyponatremia, chronic. Anemia of chronic disease. Hyperlipidemia. Congestive heart failure, systolic, ejection fraction 40%. Paroxysmal atrial fibrillation. Hypertension. Diabetes mellitus, type II. Multiple, multiple admissions to the hospital. Poor overall functional performance based on the above-mentioned multiple comorbidities. Plan: Plan dated August 30, 2024. The patient is seen today in room 385. He remains relatively stable. He is on 3 L of oxygen. He is not receiving any IV fluids. From the pulmonary standpoint, the patient is stable for discharge. He is being evaluated for possible discharge to a penitentiary up in [place]. All labs, x-rays, and m edications are reviewed. We will continue to follow the patient, make recommendations along the way. The patient's overall prognosis remains guarded. His COPD, which is severe, is currently stable. Dictation was produced using Dragon dictation software. Please excuse any grammatical, word or spelling errors. Time with Patient: Less than 30
[2024-08-30 17:09] LABS: Glucose,Whole Blood 243 mg/dL (70-110)
[2024-08-30 20:16] LABS: Glucose,Whole Blood 376 mg/dL (70-110)
[2024-08-30] MEDS: METOPROLOL TARTRATE 50 MG TAB PO SCH (20:22)
[2024-08-30 21:04] LABS: Chol/HDL Ratio 1.68 Ratio; LDL Cholesterol,Calculated 24.2 mg/dL (0.0-131.0)
--- NOTE | 2024-08-30 22:13 | P.PN ---
Subjective Progress Note Date: 08/30/24 79-year-old male with COPD on 3 L of oxygen at night, systolic CHF with left ventricular ejection fraction of 40%, coronary artery disease with history of stents hypertension and diabetes mellitus. Patient has multiple hospital admissions over the past couple months for different reasons usually due to COPD exacerbation or fluid overload. Patient was just discharged from the hospital yesterday where he was treated for COPD exacerbation. Today he is coming in after sustaining a fall at home he reports that he was with his neighbor when suddenly passed out and fell to the ground hitting his head resulting in some bleeding he is not sure if he had some loss of consciousness he does not report any seizure-like activity but he seems to be confused about all the events. At time of my evaluation he was in bed shaking reporting that he feels very tired and weak, patient lives alone and requesting placement at rehab as he is unable to take care of himself anymore. Otherwise he denies any coughing fevers chills denies any shortness of breath chest pain nausea vomiting abdominal pain changes in bowel or urinary habits. Pertinent positives and negatives as discussed above, a complete review of sys tems was performed and all other systems are negative. 08/30/2024 Patient is sitting in the side of the bed. Awake alert and oriented. Currently requiring 3 L oxygen via nasal cannula. Shortness of breath with minimal exertion are stable at rest. No complaints of chest pain. No leg swelling bila terally. Patient is being continued on heparin drip for possible lower extremity DVT due to swelling noted on admission. Patient refused to get duplex scan or CTA. Laboratory data show WBC 14.8 hemoglobin 9.2 and platelets 325 neutrophils 11.2 Sodium 129 potassium 3.9 chloride 95 bicarb is 32 BUN 11 creatinine 0.65 blood sugar 105 troponin 0.045 and 0.043 LDL 24.2, CBG 243 Patient is on prednisone 40 mg daily and DuoNebs and Symbicort. Pulmonary and cardiology is following. Vitals: Signs Reviewed Physical Exam: General: nontoxic, moderated distress, appears at stated age, 4 L nasal cannula, obese Derm: warm, dry, intact Head: Abrasion over the right side of the forehead with dried blood, normocephalic, symmetric Eyes: EOMI, anicteric sclera Mouth: no lip lesion, mucus membranes moist Cardiovascular: S1 S2 reg, no murmur, rubs, or gallops Lungs: distant lung sounds, bilateral expiratory wheezing and scattered rhonchi. No accessory muscle use Abdominal: soft, non-tender to palpataion, no appreciable organomegaly Extremities: no gross muscle atrophy, b/l 1+ leg edema, no contractures, 4/5 strength in all extremities Neuro: Alert, Oriented, CNII-XII grossly intact, gait normal Psych: well appearing, appropriate affect Data Received Today: Assessment and Plan: Patient is a 79-year-old male with complex past medical history coming to the hospital for evaluation after sustaining a fall and head injury. #. Acute chest pain Possible type II RI due to A-fib with RVR and COPD pt was complaining of 5/10 non-radiating chest pain EKG showed sinus rhythm with PACs and atrial bigeminy. No ST-T wave changes. Troponin 0.045 and 0.043 Continue with home atorvastatin and Plavix Cardiac telemetry Cardiology is on board. No intervention recommended at this time. #. Head injury secondary to syncope at home Chest x-ray no acute cardiopulmonary process CT of the head and neck showed no acute intracranial process, there is right scalp edema subcutaneous no evidence of fracture no evidence of cervical spine fracture however multilevel degenerative disc disease Lumbosacral spine x-ray no acute fractures again moderate multilevel disc degenerative disease Pain control Tylenol 650 mg p.o. Q's 6 hours as needed, Ramona [id number] p.o. 3 times daily as needed Local wound care to the scalp and left first toe for abrasion Fall precautions barn worker consult for possible placement, patient has guardian, case mgmt currently looking for placement at an [facility] PT/OT evaluation recommending subacute rehabilitation Orthostatics ordered Cardiac telemetry last night displaying A-fib with rate as high as 150 bpm, patient this morning was sinus arrhythmia at rate of 100 bpm Patient has history of paroxysmal A-fib not anticoagulated due to falls -AM cortisol ordered, consideration of ACTH stim test 24 hours after d/c of prednisone. #. Acute Hypoxemic Respiratory Failure 2/2 COPD exacerbation #. Chronic hypoxic respiratory failure on 3L home oxygen DuoNebs around the clock and prn prednisone 40 mg PO daily until back on 3L NC. Currently on 3 L nasal canula 02, attempt to wean down, keep b/w 88-92% Continue home Symbicort inhaler Home Spiriva on hold Azithromycin 500 mg IVPB daily for 3 days completed. CXR reviewed and personally interpreted, slighly worsening left pleural effusion, no consolidation Pulmonology is on board. #. Left leg edema and pain. Improved now Rule out DVT Check D-dimer: Elevated at 5.15 Check venous Doppler ultrasound of the left lower extremity, patient refusing/having difficulty laying down due to shortness of breath Patient has history of venous thromboembolism in the past currently not on any blood thinners Leg swelling is improved now. Heparin drip has been discontinued. #. Chronically elevated troponin Troponin level 0.110 which is flat compared to before No active chest pain Chronic conditions: #. Pwn-ungyqio-zkmwwbadn diabetes mellitus: Insulin sliding scale, Accu-Cheks ACHS, monitor for hypoglycemia, A1c 7.1 #. Chronic anemia: Denies any GI bleeding, continue to monitor, hemoglobin 10.2, continue ferrous sulfate 325 mg PO QD #. Chronic systolic congestive heart failure compensated, left ventricular ejection fraction 40%: Metoprolol 25 mg PO BID, Lisinopril and aldactone on hold #. Paroxysmal atrial fibrillation not anticoagulated: Metoprolol tartrate 25 mg p.o. twice daily #. Chronic hyponatremia: Currently at baseline, will follow-up BMP Resolved: Lactic acidosis DVT prophylaxis: Subcu heparin GI prophylaxis: Protonix 40 mg daily p.o. Anticipated discharge place: sub acute rehab, pending acceptance from [facility] Anticipated discharge time: Pending clinical course Objective - Vital Signs Vital signs: Vital Signs Temp 98.1 F 08/29/24 19:45 Pulse 76 08/30/24 13:27 Resp 16 08/30/24 12:00 BP 136/78 08/30/24 12:00 Pulse Ox 100 08/30/24 12:00 FiO2 Intake & Output 08/29/24 08/30/24 08/30/24 18:59 06:59 18:59 Intake Total 800 308.833 0 Output Total 300 Balance 800 8.833 0 Intake: Intake, IV Titration 68.833 0 Amount Heparin Sod,Pork in 0.45% 68.833 0 NaCl 25,000 unit In 0.45 % NaCl 1 250ml.bag @ 8. 8185 UNITS/KG/HR 10 mls/ hr IV .Q24H CYNDI Rx#: [id number] Oral 800 240 Output: Urine 300 Other: Voiding Method Urinal Urinal # Voids 4 # Bowel Movements 1 - Labs CBC & Chem 7: 08/30/24 06:17 08/30/24 06:17 Labs: Abnormal Lab Results - Last 24 Hours (Table) 08/29/24 08/29/24 08/29/24 Range/Units 14:08 16:36 19:14 WBC (4.50-10.00) 10*3/uL RBC (4.40-5.60) 10*6/uL Hgb (13.0-17.0) g/dL Hct (39.6-50.0) % MPV (9.5-12.2) fL Immature Gran # (0.00-0.04) 10*3/uL Neutrophils # (Manual) (1.3-7.7) k/uL Monocytes # (Manual) (0-1.0) k/uL Myelocytes # (Manual) (0) k/uL APTT (22.0-30.0) sec Sodium (137-145) mmol/L Chloride (98-107) mmol/L Carbon Dioxide (22-30) mmol/L Creatinine (0.66-1.25) mg/dL Glucose (74-99) mg/dL POC Glucose (mg/dL) 170 H (70-110) mg/dL Calcium (8.4-10.2) mg/dL Troponin I 0.038 H* 0.035 H* (0.000-0.034) ng/mL 08/29/24 08/30/24 08/30/24 Range/Units 20:18 06:17 06:17 WBC (4.50-10.00) 10*3/uL RBC (4.40-5.60) 10*6/uL Hgb (13.0-17.0) g/dL Hct (39.6-50.0) % MPV (9.5-12.2) fL Immature Gran # (0.00-0.04) 10*3/uL Neutrophils # (Manual) (1.3-7.7) k/uL Monocytes # (Manual) (0-1.0) k/uL Myelocytes # (Manual) (0) k/uL APTT 30.5 H (22.0-30.0) sec Sodium 129 L (137-145) mmol/L Chloride 95 L (98-107) mmol/L Carbon Dioxide 32 H (22-30) mmol/L Creatinine 0.65 L (0.66-1.25) mg/dL Glucose 105 H (74-99) mg/dL POC Glucose (mg/dL) 117 H (70-110) mg/dL Calcium 8.3 L (8.4-10.2) mg/dL Troponin I (0.000-0.034) ng/mL 08/30/24 08/30/24 08/30/24 Range/Units 06:17 06:17 09:25 WBC 14.80 H (4.50-10.00) 10*3/uL RBC 3.18 L (4.40-5.60) 10*6/uL Hgb 9.2 L (13.0-17.0) g/dL Hct 28.1 L (39.6-50.0) % MPV 9.4 L (9.5-12.2) fL Immature Gran # 1.36 H (0.00-0.04) 10*3/uL Neutrophils # (Manual) 11.25 H (1.3-7.7) k/uL Monocytes # (Manual) 1.33 H (0-1.0) k/uL Myelocytes # (Manual) 0.44 H (0) k/uL APTT (22.0-30.0) sec Sodium (137-145) mmol/L Chloride (98-107) mmol/L Carbon Dioxide (22-30) mmol/L Creatinine (0.66-1.25) mg/dL Glucose (74-99) mg/dL POC Glucose (mg/dL) (70-110) mg/dL Calcium (8.4-10.2) mg/dL Troponin I 0.045 H* 0.043 H* (0.000-0.034) ng/mL 08/30/24 Range/Units 11:54 WBC (4.50-10.00) 10*3/uL RBC (4.40-5.60) 10*6/uL Hgb (13.0-17.0) g/dL Hct (39.6-50.0) % MPV (9.5-12.2) fL Immature Gran # (0.00-0.04) 10*3/uL Neutrophils # (Manual) (1.3-7.7) k/uL Monocytes # (Manual) (0-1.0) k/uL Myelocytes # (Manual) (0) k/uL APTT (22.0-30.0) sec Sodium (137-145) mmol/L Chloride (98-107) mmol/L Carbon Dioxide (22-30) mmol/L Creatinine (0.66-1.25) mg/dL Glucose (74-99) mg/dL POC Glucose (mg/dL) 153 H (70-110) mg/dL Calcium (8.4-10.2) mg/dL Troponin I (0.000-0.034) ng/mL Assessment and Plan Time with Patient: Greater than 30
[2024-08-30] MEDS: HEPARIN SODIUM,PORCINE 5,000 UNIT/ML 1 ML VIAL SQ SCH (23:49)
[2024-08-31] MEDS: IPRATROPIUM-ALBUTEROL 3 ML NEB INHALATION PRN (00:53)
[2024-08-31 05:56] LABS: Glucose,Whole Blood 105 mg/dL (70-110)
--- NOTE | 2024-08-31 06:10 | XR ---
EXAM: XR Chest, 1 View CLINICAL HISTORY: ITS.REASON XR Reason: increased work of breathing TECHNIQUE: Frontal view of the chest. COMPARISON: X-ray dated 08/27/2024. FINDINGS: Lungs: Opacification of the left costophrenic angle. Pleural space: Small left-sided pleural effusion. No pneumothorax. Heart: Mild enlargement of the cardiac silhouette. Mediastinum: Unremarkable. Normal mediastinal contour. Bones/joints: Degenerative changes are seen within the spine and shoulders. No acute fracture. Vasculature: Calcifications overlie the aorta. IMPRESSION: Small left-sided pleural effusion with adjacent atelectasis and/or pneumonia not excluded.
[2024-08-31 07:59] LABS: African American GFR (CKD) >90 (>60 ml/min/1.73 sqM); Anion Gap 7 mmol/L; Blood Urea Nitrogen 11 mg/dL (9-20); Calcium 8.4 mg/dL (8.4-10.2); Carbon Dioxide 27 mmol/L (22-30); Chloride 94 mmol/L (98-107); Glucose 90 mg/dL (74-99); Non-African American GFR(CKD) >90 (>60 ml/min/1.73 sqM); Sodium 128 mmol/L (137-145)
[2024-08-31 08:52] LABS: HCT 28.5 % (39.6-50.0); HGB 9.5 g/dL (13.0-17.0); MCH 29.1 pg (27.0-32.0); MCHC 33.3 g/dL (32.0-37.0); MCV 87.2 fL (80.0-97.0); Mean Platelet Volume 9.3 fL (9.5-12.2); Platelet Count 317 10*3/uL (140-440); RBC 3.27 10*6/uL (4.40-5.60); RDW 15.4 % (11.5-14.5); WBC 17.88 10*3/uL (4.50-10.00)
[2024-08-31 11:49] VITALS: BMI 40.3
--- NOTE | 2024-08-31 12:00 | P.PN ---
Subjective Progress Note Date: 08/31/24 Consult reason: chest pain History of present illness: This is 79-year-old male patient of Dr. Genet Camacho with past medical history of coronary artery disease status post angioplasty of the right coronary artery, hypertension, dyslipidemia, COPD, diabetes mellitus type 2, hypertension, hyperlipidemia, chronic systolic heart failure with known EF 40%, paroxysmal atrial fibrillation. We have been asked to evaluate the patient for chest pain. Patient has had 17 hospitalizations since February 2024. He was last seen by cardiology on a hospitalization in July of this year at which time he presented with generalized weakness found to have influenza A and elevated troponins that were flat pattern and diagnosed with type II ND secondary to influenza along with acute on chronic heart failure with reduced EF. Patient presented to the hospital on 08/24 with complaints of generalized weakness and had multiple falls at home. Patient has a hematoma on the right scalp, and apparently found to be in atrial fibrillation. Patient states he has right sided chest pain. Patient has been started on heparin drip and waiting for CTA of the chest to rule out PE. Blood pressure 147/82, heart rate 88, pulse ox 100% on 3 L nasal cannula. Patient was last seen in the office with Dr. Camacho in in July 2023. -EKG: #1 atrial fibrillation 115 bpm, other EKGs reviewed with sinus rhythm and PACs, atrial bigeminy -Chest x-ray: Cardiomegaly with small left pleural effusion. -Laboratory studies: WBC 14.8, hemoglobin 9.2. Sodium 129, BUN 11, creatinine 0.65. Troponin 0.035, 0.045, 0.043. proBNP 1740. Procalcitonin less than 0.2. proBNP 787 -Home cardiac medications: Aspirin 81 mg daily, Lasix 40 mg daily, metoprolol tartrate 25 mg twice daily, simvastatin 40 mg at bedtime, spironolactone 25 mg daily -Echocardiogram performed 07/17/2024 revealed EF 40 to 45% with mild to moderate pulmonary hypertension. - Lexiscan Cardiolite stress test performed in the office on 08/17/2023 revealed inconclusive EKG part of the stress test due to baseline EKG abnormalities. Normal myocardial perfusion and function. 08/31 Patient had reported episode of chest pain last night but he refused EKG, telemetry. Patient is refusing some of his medications. Troponin continues in a flat pattern at 0.045. Other lab work reveals WBC 17.8, hemoglobin 9.5, sodium 128, BUN 11 creatinine 0.57. Physical examination: Gen: This is 79-year-old morbidly obese male in no acute distress VS: reviewed HEENT: Head is atraumatic, normocephalic. Pupils equal, round. Sclerae is a nicteric. NECK: Supple. No JVD. LUNGS: Clear to auscultation. No wheezes or rhonchi. No intercostal retractions. HEART: Regular rate and rhythm. No murmur. ABDOMEN: Soft No tenderness. EXTREMITIES: No pedal edema. No calf tenderness. NEUROLOGICAL: Patient is awake, alert and oriented x3. Assessment: Atypical chest pain, acute coronary syndrome ruled out Flat troponin pattern not indicative of acute coronary syndrome, type II ND from A-fib with RVR and COPD exacerbation Head injury secondary to fall at home Multiple falls COPD exacerbation Chronic hypoxic respiratory failure on home O2 at 3 L nasal cannula Chronic systolic heart failure with EF 40% Paroxysmal atrial fibrillation not on anticoagulation this is most likely due to multiple falls Coronary artery disease status post angioplasty of the right coronary artery Hypertension Dyslipidemia Chronic anemia Hyponatremia Morbid obesity with BMI of 40 Elevated D-dimer, patient is waiting for CTA chest--patient refused Plan: Continue current cardiac medications No plan for any cardiac procedures at this time No need to repeat echocardiogram Patient will need to be considered for anticoagulation by medicine Cardiology will sign off this case and follow on an as-needed basis. Please reconsult for any new concerns. Patient may follow-up in the office in one to 2 weeks. Nurse practitioner note has been reviewed, I agree with documented findings and plan of care. Patient was seen and examined. Objective - Vital Signs Vital signs: Vital Signs Temp 98.1 F 08/29/24 19:45 Pulse 101 H 08/31/24 10:00 Resp 16 08/31/24 10:00 BP 109/67 08/31/24 10:00 Pulse Ox 97 08/31/24 10:00 FiO2 Intake & Output 08/30/24 08/31/24 08/31/24 18:59 06:59 18:59 Intake Total 600 Output Total 250 300 Balance 350 -300 Weight 113.398 kg Intake: Intake, IV Titration 0 Amount Heparin Sod,Pork in 0.45% 0 NaCl 25,000 unit In 0.45 % NaCl 1 250ml.bag @ 8. 8185 UNITS/KG/HR 10 mls/ hr IV .Q24H [facility] Rx#: [id number] Oral 600 Output: Urine 250 300 Other: Voiding Method Urinal Urinal - Labs CBC & Chem 7: 08/31/24 06:22 08/31/24 06:22 Labs: Abnormal Lab Results - Last 24 Hours (Table) 08/30/24 08/30/24 08/30/24 Range/Units 06:17 16:55 20:14 WBC (4.50-10.00) 10*3/uL RBC (4.40-5.60) 10*6/uL Hgb (13.0-17.0) g/dL Hct (39.6-50.0) % MPV (9.5-12.2) fL Immature Gran # (0.00-0.04) 10*3/uL Sodium (137-145) mmol/L Chloride (98-107) mmol/L Creatinine (0.66-1.25) mg/dL POC Glucose (mg/dL) 243 H 376 H (70-110) mg/dL Troponin I (0.000-0.034) ng/mL HDL Cholesterol 70.40 H (40.00-60.00) mg/dL 08/31/24 08/31/24 08/31/24 Range/Units 06:22 06:22 06:22 WBC 17.88 H (4.50-10.00) 10*3/uL RBC 3.27 L (4.40-5.60) 10*6/uL Hgb 9.5 L (13.0-17.0) g/dL Hct 28.5 L (39.6-50.0) % MPV 9.3 L (9.5-12.2) fL Immature Gran # 1.49 H (0.00-0.04) 10*3/uL Sodium 128 L (137-145) mmol/L Chloride 94 L (98-107) mmol/L Creatinine 0.57 L (0.66-1.25) mg/dL POC Glucose (mg/dL) (70-110) mg/dL Troponin I 0.045 H* (0.000-0.034) ng/mL HDL Cholesterol (40.00-60.00) mg/dL
[2024-08-31 12:10] LABS: Glucose,Whole Blood 130 mg/dL (70-110)
--- NOTE | 2024-08-31 12:21 | P.PN ---
Subjective Progress Note Date: 08/31/24 Principal diagnosis: Fall. This is a 79-year-old male patient well-known to our service as he has had 17 admissions to the hospital since February 2024, not including multiple ER visits. He has a history of oxygen dependent chronic obstructive pulmonary disease, pulmonary emboli, chronic back pain, coronary disease with previous stent placement, chronic tobacco dependence, hypertension, hyperlipidemia. He presented here to the emergency room on 08/24/2024 after sustaining a fall at home hitting his head. He developed a hematoma to the right parietal region. He had denied any loss of consciousness. He is anticoagulated with warfarin. He came in regarding continued headache. Cranial process. Right scalp subcutaneous and edema. No evidence of fracture. No cervical fracture. Chest x-ray reveals no acute pulmonary process. Lumbar spine x-ray revealed no acute fracture. Moderate multilevel disc degeneration white count 8.8. Hemoglobin 9.1. Platelets 289. Sodium 128. Potassium 4.1. Bicarb 34. BUN 12. Creatinine 0.68. Glucose 104. Viral screening for influenza A/B, RSV and COVID were negative. He is seen today in consultation on the regular medical floor. He is currently sitting up at the bedside. Awake and alert in no acute distress. He denies any worsening shortness of breath, cough or congestion. We mentioned he might need placement due to his frequent readmissions and ability to care for himself. He was extremely angry and adamant that he is going back home at discharge. The patient is seen today August 28, 2024 in follow-up on the regular medical floor. He is currently resting in bed. Awake and alert in no acute distress. Maint aining O2 saturations in the 90s on 4 L/min per nasal cannula. He has been afebrile. Hemodynamically stable. White count 11.8. Hemoglobin 9.5. Platelets 280. Sodium 132. Potassium 3.7. Bicarb 32. BUN 11. Creatinine 0.65. Glucose 105. He remains on DuoNeb inhalations, Symbicort, prednisone taper. Empiric antibiotics in the form of azithromycin. Heparin for DVT prophylaxis. The patient is seen today August 29, 2024 in follow-up on the regular medical floor. He is currently awake and alert in no acute distress. Resting comfortably in bed. Denies any worsening shortness of breath, cough or congestion. Maintaining O2 saturations in the 90s on 4 L/min per nasal cannula. Denies any headache. He remains on DuoNeb inhalations, Symbicort, prednisone taper. Heparin for DVT prophylaxis. White count 11.9. Hemoglobin 9.2. Platelets 301. Sodium 132. Potassium 3.8. Bicarb 34. BUN 11. Creatinine 0.68. Glucose 106. Troponin 0.051. EKG reveals sinus mechanism. No significant ST or T wave abnormalities. Progress note dated August 30, 2024. 79-year-old male seen today in room 385. The patient is awake and alert. He is in no acute distress. He is sitting at the side of the bed. Patient is currently on 3 L of oxygen. There is no wheezing or coughing. No use of accessory muscles. No conversational dyspnea. The patient is being evaluated for possible discharge, to a residential, up in [place], [place]. Current labs include a white count of 14.8, hemoglobin 9.2, hematocrit 28.1, and a platelet count of 3 25,000. Sodium 129, potassium 3.9, chlorides 95, CO2 32, BUN 11, creatinine 0.65. Glucose is 153. Calcium is 8.3. Troponins were 0.035, 0.045, 0.043. N-terminal proBNP was 1740. Procalcitonin level was normal. Progress note dated August 31, 2024. 79-year-old male again seen in room 385. He continues on 3 L of oxygen. No IV fluids. The patient was very disrespectful to one of the nurses on the floor. The patient is currently being evaluated for possible transfer to local residential, in [place]. The patient was laying in bed. His condition is unchanged. White count 17.9, hemoglobin 9.5, hematocrit 28.5, platelet count 317,000. Sodium 128, potassium 4, chloride 94, CO2 27, BUN 11, creatinine 0.57. Glucose is 130. Calcium was 8.4. Objective - Vital Signs Vital signs: Vital Signs Temp 98.1 F 08/29/24 19:45 Pulse 101 H 08/31/24 10:00 Resp 16 08/31/24 10:00 BP 109/67 08/31/24 10:00 Pulse Ox 97 08/31/24 10:00 FiO2 Intake & Output 08/30/24 08/31/2408/31/25 18:59 06:59 18:59 Intake Total 600 Output Total 250 300 Balance 350 -300 Weight 113.398 kg Intake: Intake, IV Titration 0 Amount Heparin Sod,Pork in 0.45% 0 NaCl 25,000 unit In 0.45 % NaCl 1 250ml.bag @ 8. 8185 UNITS/KG/HR 10 mls/ hr IV .Q24H [facility] Rx#: [id number] Oral 600 Output: Urine 250 300 Other: Voiding Method Urinal Urinal - Exam No acute distress, oriented 3. Currently on 3 L. HEENT examination is grossly unremarkable. Mucous membranes are moist. No oral lesions. Hematoma over right eye. Neck supple. Full range of motion. No adenopathy thyromegaly or neck vein distention. Cardiovascular examination reveals regular rhythm rate. S1-S2 normal. No S3 or S4. No discernible murmur noted. Lungs reveal clear breath sounds. Breath sounds are equal bilaterally. No adventitious lung sounds including wheezes rhonchi or crackles. Abdomen soft bowel sounds are heard. No masses or tenderness. Extremities are intact. No cyanosis clubbing or edema. Skin reveals multiple areas of ecchymoses and bruising. Neurologic examination is brief but nonfocal. - Labs CBC & Chem 7: 08/31/24 06:22 08/31/24 06:22 Labs: Abnormal Lab Results - Last 24 Hours (Table) 08/30/24 08/30/24 08/30/24 Range/Units 06:17 16:55 20:14 WBC (4.50-10.00) 10*3/uL RBC (4.40-5.60) 10*6/uL Hgb (13.0-17.0) g/dL Hct (39.6-50.0) % MPV (9.5-12.2) fL Immature Gran # (0.00-0.04) 10*3/uL Sodium (137-145) mmol/L Chloride (98-107) mmol/L Creatinine (0.66-1.25) mg/dL POC Glucose (mg/dL) 243 H 376 H (70-110) mg/dL Troponin I (0.000-0.034) ng/mL HDL Cholesterol 70.40 H (40.00-60.00) mg/dL 08/31/24 08/31/2408/31/25 Range/Units 06:22 06:22 06:22 WBC 17.88 H (4.50-10.00) 10*3/uL RBC 3.27 L (4.40-5.60) 10*6/uL Hgb 9.5 L (13.0-17.0) g/dL Hct 28.5 L (39.6-50.0) % MPV 9.3 L (9.5-12.2) fL Immature Gran # 1.49 H (0.00-0.04) 10*3/uL Sodium 128 L (137-145) mmol/L Chloride 94 L (98-107) mmol/L Creatinine 0.57 L (0.66-1.25) mg/dL POC Glucose (mg/dL) (70-110) mg/dL Troponin I 0.045 H* (0.000-0.034) ng/mL HDL Cholesterol (40.00-60.00) mg/dL 08/31/24 Range/Units 11:56 WBC (4.50-10.00) 10*3/uL RBC (4.40-5.60) 10*6/uL Hgb (13.0-17.0) g/dL Hct (39.6-50.0) % MPV (9.5-12.2) fL Immature Gran # (0.00-0.04) 10*3/uL Sodium (137-145) mmol/L Chloride (98-107) mmol/L Creatinine (0.66-1.25) mg/dL POC Glucose (mg/dL) 130 H (70-110) mg/dL Troponin I (0.000-0.034) ng/mL HDL Cholesterol (40.00-60.00) mg/dL Assessment and Plan Assessment: Headache, S/P fall with head injury and hematoma over the right eye. Chronic hypoxemic respiratory failure secondary to severe COPD. History of chronic tobacco dependence. Hyponatremia, chronic. Anemia of chronic disease. Hyperlipidemia. Congestive heart failure, systolic, ejection fraction 40%. Paroxysmal atrial fibrillation. Hypertension. Diabetes mellitus, type II. Multiple, multiple admissions to the hospital. Poor overall functional performance based on the above-mentioned multiple c omorbidities. Plan: Plan dated August 30, 2024. The patient is seen today in room 385. He remains relatively stable. He is on 3 L of oxygen. He is not receiving any IV fluids. From the pulmonary standpoint, the patient is stable for discharge. He is being evaluated for possible discharge to a residential up in [place]. All labs, x-rays, and medications are reviewed. We will continue to follow the patient, make recommendations along the way. The patient's overall prognosis remains guarded. His COPD, which is severe, is currently stable. Dictation was produced using [employer] software. Please excuse any grammatical, word or spelling errors. Plan dated August 31, 2024. The patient is seen today in room 385. The patient is stable for discharge from the hospital. He came into the hospital with a fall. His COPD was not particularly active. Labs, x-rays, and medications are reviewed. The patient is currently being evaluated for discharge to a residential in [place], [place]. We will continue follow-up. Prognosis is guarded. Dictation was produced using [employer] software. Please excuse any grammatical, word or spelling errors. Time with Patient: Less than 30
[2024-08-31 13:46] LABS: Band Neutrophils % 1 %; Lymphocytes # (M) 1.97 k/uL (1.0-4.8); Nucleated Red Blood Cells 0 /100 WBC (0-0)
[2024-08-31 13:52] LABS: Eosinophils # (M) 0.18 k/uL (0-0.7); Monocytes # (M) 2.68 k/uL (0-1.0); Myelocytes # (M) 0.18 k/uL (0); Myelocytes % 1 %; Neutrophils # (M) 13.23 k/uL (1.3-7.7); Neutrophils % (M) 73 %; RBC Morphology Normal; Total Cells Counted 200
[2024-08-31 17:17] LABS: Glucose,Whole Blood 152 mg/dL (70-110)
[2024-08-31] MEDS: ATORVASTATIN 40 MG TAB PO SCH (20:24)
[2024-08-31 21:15] LABS: Glucose,Whole Blood 150 mg/dL (70-110)
[2024-09-01 06:59] VITALS: RESP 18
[2024-09-01 07:15] LABS: Glucose,Whole Blood 103 mg/dL (70-110)
[2024-09-01 10:31] LABS: HCT 30.7 % (39.6-50.0); HGB 9.8 g/dL (13.0-17.0); MCH 28.8 pg (27.0-32.0); MCHC 31.9 g/dL (32.0-37.0); MCV 90.3 FL (80.0-97.0); Mean Platelet Volume 9.6 FL (9.5-12.2); NRBC Per 100 WBC 0.06 X 10*3/uL (0.00-0.01); Platelet Count 388 X 10*3/uL (140-440); RDW 15.7 % (11.5-14.5); WBC 20.34 X 10*3/uL (4.50-10.00)
[2024-09-01 10:42] LABS: Blood Urea Nitrogen 10.2 mg/dL (9.0-27.0); Calcium 8.3 mg/dL (8.7-10.3); Carbon Dioxide 25.9 mmol/L (21.6-31.8); Chloride 93 mmol/L (96-109); Glucose 91 mg/dL (70-110); Potassium 4.3 mmol/L (3.5-5.5); Sodium 132 mmol/L (135-145)
[2024-09-01 11:59] LABS: Basophils # (A) 0.07 X 10*3/uL (0.00-0.10); Basophils % (A) 0.3 %; Eosinophils # (A) 0.02 X 10*3/uL (0.04-0.35); Eosinophils % (A) 0.1 %; Lymphocytes # (A) 1.32 X 10*3/uL (0.90-5.00); Lymphocytes % (A) 6.5 %; Monocytes % (A) 7.9 %; Neutrophils # (A) 16.47 X 10*3/uL (1.80-7.70)
[2024-09-01 12:15] LABS: Glucose,Whole Blood 136 mg/dL (70-110)
[2024-09-01 12:38] VITALS: BP 88/64; TEMP 97.9
--- NOTE | 2024-09-01 13:36 | P.PN ---
Subjective Progress Note Date: 08/31/24 79-year-old male with COPD on 3 L of oxygen at night, systolic CHF with left ventricular ejection fraction of 40%, coronary artery disease with history of stents hypertension and diabetes mellitus. Patient has multiple hospital admissions over the past couple months for different reasons usually due to COPD exacerbation or fluid overload. Patient was just discharged from the hospital yesterday where he was treated for COPD exacerbation. Today he is coming in after sustaining a fall at home he reports that he was with his neighbor when suddenly passed out and fell to the ground hitting his head resulting in some bleeding he is not sure if he had some loss of consciousness he does not report any seizure-like activity but he seems to be confused about all the events. At time of my evaluation he was in bed shaking reporting that he feels very tired and weak, patient lives alone and requesting placement at rehab as he is unable to take care of himself anymore. Otherwise he denies any coughing fevers chills denies any shortness of breath chest pain nausea vomiting abdominal pain changes in bowel or urinary habits. Pertinent positives and negatives as discussed above, a complete review of sys tems was performed and all other systems are negative. 08/30/2024 Patient is sitting in the side of the bed. Awake alert and oriented. Currently requiring 3 L oxygen via nasal cannula. Shortness of breath with minimal exertion are stable at rest. No complaints of chest pain. No leg swelling bila terally. Patient is being continued on heparin drip for possible lower extremity DVT due to swelling noted on admission. Patient refused to get duplex scan or CTA. Laboratory data show WBC 14.8 hemoglobin 9.2 and platelets 325 neutrophils 11.2 Sodium 129 potassium 3.9 chloride 95 bicarb is 32 BUN 11 creatinine 0.65 blood sugar 105 troponin 0.045 and 0.043 LDL 24.2, CBG 243 Patient is on prednisone 40 mg daily and DuoNebs and Symbicort. Pulmonary and cardiology is following. 08/31/2024 Patient is lying in the bed. Awake alert and oriented. No complaints of chest pain. Still having shortness of breath and expiratory wheezing on exam. Denied any nausea or vomiting. Able to tolerate oral diet. Patient has been aggressive and rude to the staff at times. Patient is also refusing medications and refused to get duplex scan and CT angiogram of the chest rule out DVT. Anticoagulation is on hold due to history of falls. Laboratory data showed WBC 17.8 hemoglobin 9.5 and platelets 317 sodium 128 potassium 4.0 chloride 94 bicarb is 27 BUN 11 creatinine 0.57 and troponin 0.045 Cardiology and pulmonary is on board. Vitals: Signs Reviewed Physical Exam: General: nontoxic, no distress, appears at stated age, 3 L nasal cannula, obese Derm: warm, dry, intact Head: Abrasion over the right side of the forehead with dried blood, normocephalic, symmetric Eyes: EOMI, anicteric sclera Mouth: no lip lesion, mucus membranes moist Cardiovascular: S1 S2 reg, no murmur, rubs, or gallops Lungs: distant lung sounds, bilateral expiratory wheezing and scattered rhonchi. No accessory muscle use Abdominal: soft, non-tender to palpataion, no appreciable organomegaly Extremities: no gross muscle atrophy, b/l 1+ leg edema, no contractures, 4/5 strength in all extremities Neuro: Alert, Oriented, CNII-XII grossly intact, gait normal Psych: well appearing, appropriate affect Assessment and Plan: Patient is a 79-year-old male with complex past medical history coming to the hospital for evaluation after sustaining a fall and head injury. #. Acute chest pain Possible type II RI due to A-fib with RVR and COPD pt was complaining of 5/10 non-radiating chest pain EKG showed sinus rhythm with PACs and atrial bigeminy. No ST-T wave changes. Troponin 0.045 and 0.043 Continue with home atorvastatin and Plavix Cardiac telemetry Cardiology is on board. No intervention recommended at this time. #. Head injury secondary to syncope at home Chest x-ray no acute cardiopulmonary process CT of the head and neck showed no acute intracranial process, there is right scalp edema subcutaneous no evidence of fracture no evidence of cervical spine fracture however multilevel degenerative disc disease Lumbosacral spine x-ray no acute fractures again moderate multilevel disc degenerative disease Pain control Tylenol 650 mg p.o. Q's 6 hours as needed, Dexter 5325 p.o. 3 times daily as needed Local wound care to the scalp and left first toe for abrasion Fall precautions property worker consult for possible placement, patient has guardian, case mgmt currently looking for placement at an [facility] PT/OT evaluation recommending subacute rehabilitation Orthostatics ordered Cardiac telemetry last night displaying A-fib with rate as high as 150 bpm, patient this morning was sinus arrhythmia at rate of 100 bpm Patient has history of paroxysmal A-fib not anticoagulated due to falls -AM cortisol level 4 #. Acute Hypoxemic Respiratory Failure 2/2 COPD exacerbation #. Chronic hypoxic respiratory failure on 3L home oxygen DuoNebs around the clock and prn prednisone 40 mg PO daily until back on 3L NC. Currently on 3 L nasal canula 02, attempt to wean down, keep b/w 88-92% Continue home Symbicort inhaler Home Spiriva on hold Azithromycin 500 mg IVPB daily for 3 days completed. CXR reviewed and personally interpreted, slighly worsening left pleural effusion, no consolidation Pulmonology is on board. #. Left leg edema and pain. Improved now Rule out DVT Check D-dimer: Elevated at 5.15 Check venous Doppler ultrasound of the left lower extremity, patient refusing/having difficulty laying down due to shortness of breath Patient has history of venous thromboembolism in the past currently not on any blood thinners Leg swelling is improved now. Heparin drip has been discontinued. #. Chronically elevated troponin Troponin level 0.110 which is flat compared to before No active chest pain Chronic conditions: #. [id number] diabetes mellitus: Insulin sliding scale, Accu-Cheks ACHS, monitor for hypoglycemia, A1c 7.1 #. Chronic anemia: Denies any GI bleeding, continue to monitor, hemoglobin 10.2, continue ferrous sulfate 325 mg PO QD #. Chronic systolic congestive heart failure compensated, left ventricular ejection fraction 40%: Metoprolol 25 mg PO BID, Lisinopril and aldactone on hold #. Paroxysmal atrial fibrillation not anticoagulated: Metoprolol tartrate 25 mg p.o. twice daily #. Chronic hyponatremia: Currently at baseline, will follow-up BMP Resolved: Lactic acidosis DVT prophylaxis: Subcu heparin GI prophylaxis: Protonix 40 mg daily p.o. Anticipated discharge place: sub acute rehab, pending acceptance from [facility] Anticipated discharge time: Pending clinical course Objective - Vital Signs Vital signs: Vital Signs Temp 98.1 F 08/29/24 19:45 Pulse 80 08/31/24 16:40 Resp 20 08/31/24 16:40 BP 96/50 08/31/24 16:40 Pulse Ox 95 08/31/24 16:40 FiO2 Intake & Output 08/31/24 08/31/24 09/01/24 06:59 18:59 06:59 Intake Total 480 Output Total 300 250 Balance -300 230 Weight 113.398 kg Intake: Oral 480 Output: Urine 300 250 Other: Voiding Method Urinal - Labs CBC & Chem 7: 09/01/24 05:31 09/01/24 05:31 Labs: Abnormal Lab Results - Last 24 Hours (Table) 08/30/24 08/30/24 08/31/24 Range/Units 06:17 20:14 06:22 WBC 17.88 H (4.50-10.00) 10*3/uL RBC 3.27 L (4.40-5.60) 10*6/uL Hgb 9.5 L (13.0-17.0) g/dL Hct 28.5 L (39.6-50.0) % MPV 9.3 L (9.5-12.2) fL Immature Gran # 1.49 H (0.00-0.04) 10*3/uL Neutrophils # (Manual) 13.23 H (1.3-7.7) k/uL Monocytes # (Manual) 2.68 H (0-1.0) k/uL Myelocytes # (Manual) 0.18 H (0) k/uL Sodium (137-145) mmol/L Chloride (98-107) mmol/L Creatinine (0.66-1.25) mg/dL POC Glucose (mg/dL) 376 H (70-110) mg/dL Troponin I (0.000-0.034) ng/mL HDL Cholesterol 70.40 H (40.00-60.00) mg/dL 08/31/24 08/31/24 08/31/24 Range/Units 06:22 06:22 11:56 WBC (4.50-10.00) 10*3/uL RBC (4.40-5.60) 10*6/uL Hgb (13.0-17.0) g/dL Hct (39.6-50.0) % MPV (9.5-12.2) fL Immature Gran # (0.00-0.04) 10*3/uL Neutrophils # (Manual) (1.3-7.7) k/uL Monocytes # (Manual) (0-1.0) k/uL Myelocytes # (Manual) (0) k/uL Sodium 128 L (137-145) mmol/L Chloride 94 L (98-107) mmol/L Creatinine 0.57 L (0.66-1.25) mg/dL POC Glucose (mg/dL) 130 H (70-110) mg/dL Troponin I 0.045 H* (0.000-0.034) ng/mL HDL Cholesterol (40.00-60.00) mg/dL 08/31/24 Range/Units 17:06 WBC (4.50-10.00) 10*3/uL RBC (4.40-5.60) 10*6/uL Hgb (13.0-17.0) g/dL Hct (39.6-50.0) % MPV (9.5-12.2) fL Immature Gran # (0.00-0.04) 10*3/uL Neutrophils # (Manual) (1.3-7.7) k/uL Monocytes # (Manual) (0-1.0) k/uL Myelocytes # (Manual) (0) k/uL Sodium (137-145) mmol/L Chloride (98-107) mmol/L Creatinine (0.66-1.25) mg/dL POC Glucose (mg/dL) 152 H (70-110) mg/dL Troponin I (0.000-0.034) ng/mL HDL Cholesterol (40.00-60.00) mg/dL
[2024-09-01] MEDS ORDERED: SENNOSIDES 8.6 MG TAB PO PRN (13:38)
--- NOTE | 2024-09-01 13:39 | P.PN ---
Subjective Progress Note Date: 09/01/24 79-year-old male with COPD on 3 L of oxygen at night, systolic CHF with left ventricular ejection fraction of 40%, coronary artery disease with history of stents hypertension and diabetes mellitus. Patient has multiple hospital admissions over the past couple months for different reasons usually due to COPD exacerbation or fluid overload. Patient was just discharged from the hospital yesterday where he was treated for COPD exacerbation. Today he is coming in after sustaining a fall at home he reports that he was with his neighbor when suddenly passed out and fell to the ground hitting his head resulting in some bleeding he is not sure if he had some loss of consciousness he does not report any seizure-like activity but he seems to be confused about all the events. At time of my evaluation he was in bed shaking reporting that he feels very tired and weak, patient lives alone and requesting placement at rehab as he is unable to take care of himself anymore. Otherwise he denies any coughing fevers chills denies any shortness of breath chest pain nausea vomiting abdominal pain changes in bowel or urinary habits. Pertinent positives and negatives as discussed above, a complete review of sys tems was performed and all other systems are negative. 08/30/2024 Patient is sitting in the side of the bed. Awake alert and oriented. Currently requiring 3 L oxygen via nasal cannula. Shortness of breath with minimal exertion are stable at rest. No complaints of chest pain. No leg swelling bila terally. Patient is being continued on heparin drip for possible lower extremity DVT due to swelling noted on admission. Patient refused to get duplex scan or CTA. Laboratory data show WBC 14.8 hemoglobin 9.2 and platelets 325 neutrophils 11.2 Sodium 129 potassium 3.9 chloride 95 bicarb is 32 BUN 11 creatinine 0.65 blood sugar 105 troponin 0.045 and 0.043 LDL 24.2, CBG 243 Patient is on prednisone 40 mg daily and DuoNebs and Symbicort. Pulmonary and cardiology is following. 08/31/2024 Patient is lying in the bed. Awake alert and oriented. No complaints of chest pain. Still having shortness of breath and expiratory wheezing on exam. Denied any nausea or vomiting. Able to tolerate oral diet. Patient has been aggressive and rude to the staff at times. Patient is also refusing medications and refused to get duplex scan and CT angiogram of the chest rule out DVT. Anticoagulation is on hold due to history of falls. Laboratory data showed WBC 17.8 hemoglobin 9.5 and platelets 317 sodium 128 potassium 4.0 chloride 94 bicarb is 27 BUN 11 creatinine 0.57 and troponin 0.045 Cardiology and pulmonary is on board. 09/01/2024 Patient is transferred to [facility] unit. Patient is sitting on the side of the bed. Awake alert and oriented. No complaints of chest pain. Shortness of breath at baseline. Expiratory wheezing on exam. Continued on prednisone 40 mg daily. Requiring 3 L oxygen via nasal cannula. Tolerating oral diet. Denied any worsening cough or sputum production. Patient has been afebrile overnight. Laboratory data showed WBC went up to 20.3 hemoglobin 9.8 and platelets 388 sodium 132 potassium 4.3 chloride 93 bicarb is 24.9 and BUN 10.8 and creatinine 0.6 and blood sugar 8.3. Will follow WBC count and monitor for infection. Vitals: Signs Reviewed Physical Exam: General: nontoxic, no distress, appears at stated age, 3 L nasal cannula, obese Derm: warm, dry, intact Head: Abrasion over the right side of the forehead with dried blood, normocephalic, symmetric Eyes: EOMI, anicteric sclera Mouth: no lip lesion, mucus membranes moist Cardiovascular: S1 S2 reg, no murmur, rubs, or gallops Lungs: distant lung sounds, bilateral expiratory wheezing and scattered rhonchi. No accessory muscle use Abdominal: soft, non-tender to palpataion, no appreciable organomegaly Extremities: no gross muscle atrophy, b/l 1+ leg edema, no contractures, 4/5 strength in all extremities Neuro: Alert, Oriented, CNII-XII grossly intact, gait normal Psych: well appearing, appropriate affect Assessment and Plan: Patient is a 79-year-old male with complex past medical history coming to the hospital for evaluation after sustaining a fall and head injury. #. Acute chest pain Possible type II ID due to A-fib with RVR and COPD pt was complaining of 5/10 non-radiating chest pain EKG showed sinus rhythm with PACs and atrial bigeminy. No ST-T wave changes. Troponin 0.045 and 0.043 Continue with home atorvastatin and Plavix Cardiac telemetry Cardiology is on board. No intervention recommended at this time. #. Head injury secondary to syncope at home Chest x-ray no acute cardiopulmonary process CT of the head and neck showed no acute intracranial process, there is right scalp edema subcutaneous no evidence of fracture no evidence of cervical spine fracture however multilevel degenerative disc disease Lumbosacral spine x-ray no acute fractures again moderate multilevel disc degenerative disease Pain control Tylenol 650 mg p.o. Q's 6 hours as needed, [place] 5325 p.o. 3 times daily as needed Local wound care to the scalp and left first toe for abrasion Fall precautions caisson worker consult for possible placement, patient has guardian, case mgmt currently looking for placement at an [facility] PT/OT evaluation recommending subacute rehabilitation Orthostatics ordered Cardiac telemetry last night displaying A-fib with rate as high as 150 bpm, patient this morning was sinus arrhythmia at rate of 100 bpm Patient has history of paroxysmal A-fib not anticoagulated due to falls -AM cortisol level 4 #. Acute Hypoxemic Respiratory Failure 2/2 COPD exacerbation #. Chronic hypoxic respiratory failure on 3L home oxygen DuoNebs around the clock and prn prednisone 40 mg PO daily until back on 3L NC. Currently on 3 L nasal canula 02, attempt to wean down, keep b/w 88-92% Continue home Symbicort inhaler Home Spiriva on hold Azithromycin 500 mg IVPB daily for 3 days completed. CXR reviewed and personally interpreted, slighly worsening left pleural effusion, no consolidation Pulmonology is on board. #. Left leg edema and pain. Improved now Rule out DVT Check D-dimer: Elevated at 5.15 Check venous Doppler ultrasound of the left lower extremity, patient refusing/having difficulty laying down due to shortness of breath Patient has history of venous thromboembolism in the past currently not on any blood thinners Leg swelling is improved now. Heparin drip has been discontinued. #. Chronically elevated troponin Troponin level 0.110 which is flat compared to before No active chest pain Chronic conditions: #. [id number] diabetes mellitus: Insulin sliding scale, Accu-Cheks ACHS, monitor for hypoglycemia, A1c 7.1 #. Chronic anemia: Denies any GI bleeding, continue to monitor, hemoglobin 10.2, continue ferrous sulfate 325 mg PO QD #. Chronic systolic congestive heart failure compensated, left ventricular ejection fraction 40%: Metoprolol 25 mg PO BID, Lisinopril and aldactone on hold #. Paroxysmal atrial fibrillation not anticoagulated: Metoprolol tartrate 25 mg p.o. twice daily #. Chronic hyponatremia: Currently at baseline, will follow-up BMP Resolved: Lactic acidosis DVT prophylaxis: Subcu heparin GI prophylaxis: Protonix 40 mg daily p.o. Anticipated discharge place: sub acute rehab, pending acceptance from [facility] Anticipated discharge time: Pending clinical course Objective - Vital Signs Vital signs: Vital Signs Temp 97.9 F 09/01/24 12:08 Pulse 45 L 09/01/24 12:38 Resp 18 09/01/24 12:38 BP 88/64 09/01/24 12:38 Pulse Ox 95 09/01/24 12:38 FiO2 Intake & Output 08/31/24 09/01/24 09/01/24 18:59 06:59 18:59 Intake Total 480 240 Output Total 250 275 Balance 230 -35 Weight 113.398 kg Intake: Oral 480 240 Output: Urine 250 275 - Labs CBC & Chem 7: 09/01/24 05:31 09/01/24 05:31 Labs: Abnormal Lab Results - Last 24 Hours (Table) 08/31/24 08/31/24 08/31/24 Range/Units 06:22 17:06 21:14 WBC (4.50-10.00) X 10*3/uL RBC (4.40-5.60) X 10*6/uL Hgb (13.0-17.0) g/dL Hct (39.6-50.0) % MCHC (32.0-37.0) g/dL RDW (11.5-14.5) % Immature Gran # (0.00-0.04) X 10*3/uL Neutrophils # (1.80-7.70) X 10*3/uL Neutrophils # (Manual) 13.23 H (1.3-7.7) k/uL Monocytes # (0.20-1.00) X 10*3/uL Monocytes # (Manual) 2.68 H (0-1.0) k/uL Eosinophils # (0.04-0.35) X 10*3/uL Myelocytes # (Manual) 0.18 H (0) k/uL NRBC/100 WBC Diff (0.00-0.01) X 10*3/uL Sodium (135-145) mmol/L Chloride (96-109) mmol/L Anion Gap (4.00-12.00) mmol/L POC Glucose (mg/dL) 152 H 150 H (70-110) mg/dL Calcium (8.7-10.3) mg/dL 09/01/24 09/01/24 09/01/24 Range/Units 05:31 05: 12:13 WBC 20.34 H (4.50-10.00) X 10*3/uL RBC 3.40 L (4.40-5.60) X 10*6/uL Hgb 9.8 L (13.0-17.0) g/dL Hct 30.7 L (39.6-50.0) % MCHC 31.9 L (32.0-37.0) g/dL RDW 15.7 H (11.5-14.5) % Immature Gran # 0.86 H (0.00-0.04) X 10*3/uL Neutrophils # 16.47 H (1.80-7.70) X 10*3/uL Neutrophils # (Manual) (1.3-7.7) k/uL Monocytes # 1.60 H (0.20-1.00) X 10*3/uL Monocytes # (Manual) (0-1.0) k/uL Eosinophils # 0.02 L (0.04-0.35) X 10*3/uL Myelocytes # (Manual) (0) k/uL NRBC/100 WBC Diff 0.06 H (0.00-0.01) X 10*3/uL Sodium 132 L (135-145) mmol/L Chloride 93 L (96-109) mmol/L Anion Gap 13.10 H (4.00-12.00) mmol/L POC Glucose (mg/dL) 136 H (70-110) mg/dL Calcium 8.3 L (8.7-10.3) mg/dL
--- NOTE | 2024-09-01 13:54 | P.PN ---
Subjective Progress Note Date: 09/01/24 This is a 79-year-old male patient well-known to our service as he has had 17 admissions to the hospital since February 2024, not including multiple ER visits. He has a history of oxygen dependent chronic obstructive pulmonary disease, pulmonary emboli, chronic back pain, coronary disease with previous s tent placement, chronic tobacco dependence, hypertension, hyperlipidemia. He presented here to the emergency room on 08/24/2024 after sustaining a fall at home hitting his head. He developed a hematoma to the right parietal region. He had denied any loss of consciousness. He is anticoagulated with warfarin. He came in regarding continued headache. Cranial process. Right scalp subcutaneous and edema. No evidence of fracture. No cervical fracture. Chest x-ray reveals no acute pulmonary process. Lumbar spine x-ray revealed no acute fracture. Moderate multilevel disc degeneration white count 8.8. Hemoglobin 9.1. Platelets 289. Sodium 128. Potassium 4.1. Bicarb 34. BUN 12. Creat inine 0.68. Glucose 104. Viral screening for influenza A/B, RSV and COVID were negative. He is seen today in consultation on the regular medical floor. He is currently sitting up at the bedside. Awake and alert in no acute distress. He denies any worsening shortness of breath, cough or congestion. We mentioned he might need placement due to his frequent readmissions and ability to care for himself. He was extremely angry and adamant that he is going back home at discharge. The patient is seen today August 28, 2024 in follow-up on the regular medical floor. He is currently resting in bed. Awake and alert in no acute distress. Maintaining O2 saturations in the 90s on 4 L/min per nasal cannula. He has been afebrile. Hemodynamically stable. White count 11.8. Hemoglobin 9.5. Platel ets 280. Sodium 132. Potassium 3.7. Bicarb 32. BUN 11. Creatinine 0.65. Glucose 105. He remains on DuoNeb inhalations, Symbicort, prednisone taper. Empiric antibiotics in the form of azithromycin. Heparin for DVT prophylaxis. The patient is seen today August 29, 2024 in follow-up on the regular medical floor. He is currently awake and alert in no acute distress. Resting comfortably in bed. Denies any worsening shortness of breath, cough or congestion. Maintaining O2 saturations in the 90s on 4 L/min per nasal cannula. Denies any headache. He remains on DuoNeb inhalations, Symbicort, prednisone taper. Heparin for DVT prophylaxis. White count 11.9. Hemoglobin 9.2. Platelets 301. Sodium 132. Potassium 3.8. Bicarb 34. BUN 11. Creatinine 0.68. Glucose 106. Troponin 0.051. EKG reveals sinus mechanism. No significant ST or T wave abnormalities. Progress note dated August 30, 2024. 79-year-old male seen today in room 385. The patient is awake and alert. He is in no acute distress. He is sitting at the side of the bed. Patient is currently on 3 L of oxygen. There is no wheezing or coughing. No use of accessory muscles. No conversational dyspnea. The patient is being evaluated for possible discharge, to a penitentiary, up in [place], [place]. Current labs include a white count of 14.8, hemoglobin 9.2, hematocrit 28.1, and a platelet count of 3 25,000. Sodium 129, potassium 3.9, chlorides 95, CO2 32, BUN 11, creatinine 0.65. Glucose is 153. Calcium is 8.3. Troponins were 0.035, 0.045, 0.043. N-terminal proBNP was 1740. Procalcitonin level was normal. Progress note dated August 31, 2024. 79-year-old male again seen in room 385. He continues on 3 L of oxygen. No IV fluids. The patient was very disrespectful to one of the nurses on the floor. The patient is currently being evaluated for possible transfer to local penitentiary, in [place]. The patient was laying in bed. His condition is unchanged. White count 17.9, hemoglobin 9.5, hematocrit 28.5, platelet count 317,000. Sodium 128, potassium 4, chloride 94, CO2 27, BUN 11, creatinine 0.57. Glucose is 130. Calcium was 8.4. The patient is seen today September 01, 2024 in follow-up on the regular medical floor. He is currently resting in bed. Awake and alert in no acute distress. Maintaining good O2 saturations in the mid 90s on 3 L/min per nasal cannula. He has been afebrile. Currently refusing his morning medications from the nursing staff spite encouragement and rationale why he should take his medications. White count 20.3. Hemoglobin 9.8. Platelets 388. Sodium 132. Potassium 4.3. Bicarb 26. BUN 10. Creatinine 0.6. Glucose 91. He is continued on DuoNeb and elations, Symbicort, prednisone taper. Heparin for DVT prophylaxis. Protonix for GI prophylaxis. Objective - Vital Signs Vital signs: Vital Signs Temp 97.9 F 09/01/24 12:08 Pulse 45 L 09/01/24 12:38 Resp 18 09/01/24 12:38 BP 88/64 09/01/24 12:38 Pulse Ox 95 09/01/24 12:38 FiO2 Intake & Output 08/31/24 09/01/24 09/01/24 18:59 06:59 18:59 Intake Total 480 240 Output Total 250 275 Balance 230 -35 Weight 113.398 kg Intake: Oral 480 240 Output: Urine 250 275 - Exam GENERAL EXAM: Alert, 79-year-old male, resting in bed, on 3 L nasal cannula, in no apparent distress. HEAD: Normocephalic. Hematoma over right eye. EYES: Normal reaction of pupils, equal size. NOSE: Clear with pink turbinates. THROAT: No erythema or exudates. NECK: No masses, no JVD. CHEST: No chest wall deformity. LUNGS: Equal air entry with no crackles, wheeze, rhonchi or dullness. Diminished CVS: S1 and S2 normal with no audible murmur, regular rhythm. ABDOMEN: No hepatosplenomegaly, normal bowel sounds, no guarding or rigidity. SPINE: No scoliosis or deformity SKIN: Multiple areas of ecchymosis and bruising. No rashes CENTRAL NERVOUS SYSTEM: No focal deficits, tone is normal in all 4 extremities. EXTREMITIES: There is no peripheral edema. No clubbing, no cyanosis. Peripheral pulses are intact. - Labs CBC & Chem 7: 09/01/24 05:31 09/01/24 05:31 Labs: Abnormal Lab Results - Last 24 Hours (Table) 08/31/24 08/31/24 08/31/24 Range/Units 06:22 17:06 21:14 WBC (4.50-10.00) X 10*3/uL RBC (4.40-5.60) X 10*6/uL Hgb (13.0-17.0) g/dL Hct (39.6-50.0) % MCHC (32.0-37.0) g/dL RDW (11.5-14.5) % Immature Gran # (0.00-0.04) X 10*3/uL Neutrophils # (1.80-7.70) X 10*3/uL Neutrophils # (Manual) 13.23 H (1.3-7.7) k/uL Monocytes # (0.20-1.00) X 10*3/uL Monocytes # (Manual) 2.68 H (0-1.0) k/uL Eosinophils # (0.04-0.35) X 10*3/uL Myelocytes # (Manual) 0.18 H (0) k/uL NRBC/100 WBC Diff (0.00-0.01) X 10*3/uL Sodium (135-145) mmol/L Chloride (96-109) mmol/L Anion Gap (4.00-12.00) mmol/L POC Glucose (mg/dL) 152 H 150 H (70-110) mg/dL Calcium (8.7-10.3) mg/dL 09/01/24 09/01/24 09/01/24 Range/Units 05:31 05:31 12:13 WBC 20.34 H (4.50-10.00) X 10*3/uL RBC 3.40 L (4.40-5.60) X 10*6/uL Hgb 9.8 L (13.0-17.0) g/dL Hct 30.7 L (39.6-50.0) % MCHC 31.9 L (32.0-37.0) g/dL RDW 15.7 H (11.5-14.5) % Immature Gran # 0.86 H (0.00-0.04) X 10*3/uL Neutrophils # 16.47 H (1.80-7.70) X 10*3/uL Neutrophils # (Manual) (1.3-7.7) k/uL Monocytes # 1.60 H (0.20-1.00) X 10*3/uL Monocytes # (Manual) (0-1.0) k/uL Eosinophils # 0.02 L (0.04-0.35) X 10*3/uL Myelocytes # (Manual) (0) k/uL NRBC/100 WBC Diff 0.06 H (0.00-0.01) X 10*3/uL Sodium 132 L (135-145) mmol/L Chloride 93 L (96-109) mmol/L Anion Gap 13.10 H (4.00-12.00) mmol/L POC Glucose (mg/dL) 136 H (70-110) mg/dL Calcium 8.3 L (8.7-10.3) mg/dL Assessment and Plan Assessment: Headache status post fall with head injury with right sided hematoma over the right eye Chronic hypoxemic respiratory failure secondary to severe COPD History of chronic tobacco dependence Hyponatremia, chronic Anemia of chronic disease Hyperlipidemia Congestive heart failure, systolic, ejection fraction 40% Paroxysmal atrial fibrillation Hypertension Diabetes mellitus, type II Multiple, multiple admissions to the hospital Poor overall functional performance based on the above-mentioned multiple comorbidities Plan: The patient was seen and evaluated Labs and medications reviewed Currently stable on 3 L nasal cannula Continue DuoNeb inhalations, Symbicort Continue a prednisone taper Heparin for DVT prophylaxis Protonix for GI prophylaxis Needs increased encouragement to take his scheduled medications Legal guardianship obtained Case management continues to work on placement I have personally seen and examined the patient, performed the documentation and the assessment and plan as written. Number of minutes spent on the visit: 10 Dictation was produced using [employer] dictation software. Please excuse any grammatical, word or spelling errors.
--- NOTE | 2024-09-01 14:04 | P.DS ---
Providers Date of admission: 08/24/24 22:06 Expected date of discharge: 09/01/24 Attending physician: Abby Ortiz Consults: 08/27/24 09:30 Consult Physician Routine Consulting Provider: Manoj Alberto Consult Reason/Comments: COPD ex Do you want consulting provider notified?: Yes 08/29/24 18:32 Consult Physician Routine Consulting Provider: Jairo Kamara Consult Reason/Comments: Chest Pain Do you want consulting provider notified?: Yes [facility]: Discharge diagnosis #. Acute chest pain Possible type II AK due to A-fib with RVR and COPD #. Head injury secondary to syncope at home #. Acute Hypoxemic Respiratory Failure 2/2 COPD exacerbation #. Chronic hypoxic respiratory failure on 3L home oxygen # Possible left lower lobe atelectasis versus pneumonia #. Left leg edema and pain. Improved now Rule out DVT. Patient refused duplex scan as well as CTA. Otherwise leg swelling improved and heparin drip has been discontinued. D-dimer elevated at 5.15 #. Chronically elevated troponin Troponin level 0.110 which is flat compared to before No active chest pain Chronic conditions: #. Zrn-[id number]-yrealkkir diabetes mellitus: Insulin sliding scale, Accu-Cheks ACHS, monitor for hypoglycemia, A1c 7.1 #. Chronic anemia: Denies any GI bleeding, continue to monitor, hemoglobin 10.2, continue ferrous sulfate 325 mg PO QD #. Chronic systolic congestive heart failure compensated, left ventricular ejection fraction 40%: Metoprolol 25 mg PO BID and Lasix 40 mg daily with holding parameters SBP less than 110 mmHg #. Paroxysmal atrial fibrillation not anticoagulated: Metoprolol tartrate 25 mg p.o. twice daily. Not on anticoagulation due to falls and off balance. #. Chronic hyponatremia: Currently at baseline. Resolved: Lactic acidosis DVT prophylaxis: Subcu heparin GI prophylaxis: Protonix 40 mg daily p.o. Hospital course 79-year-old male with COPD on 3 L of oxygen at night, systolic CHF with left ventricular ejection fraction of 40%, coronary artery disease with history of stents hypertension and diabetes mellitus. Patient has multiple hospital admissions over the past couple months for different reasons usually due to COPD exacerbation or fluid overload. Patient was just discharged from the hospital yesterday where he was treated for COPD exacerbation. Today he is coming in after sustaining a fall at home he reports that he was with his neighbor when suddenly passed out and fell to the ground hitting his head resulting in some bleeding he is not sure if he had some loss of consciousness he does not report any seizure-like activity but he seems to be confused about all the events. At time of my evaluation he was in bed shaking reporting that he feels very tired and weak, patient lives alone and requesting placement at rehab as he is unable to take care of himself anymore. Otherwise he denies any coughing fevers chills denies any shortness of breath chest pain nausea vomiting abdominal pain changes in bowel or urinary habits. Pertinent positives and negatives as discussed above, a complete review of systems was performed and all other systems are negative. 08/30/2024 Patient is sitting in the side of the bed. Awake alert and oriented. Currently requiring 3 L oxygen via nasal cannula. Shortness of breath with minimal exertion are stable at rest. No complaints of chest pain. No leg swelling bilaterally. Patient is being continued on heparin drip for possible lower extremity DVT due to swelling noted on admission. Patient refused to get duplex scan or CTA. Laboratory data show WBC 14.8 hemoglobin 9.2 and platelets 325 neutrophils 11.2 Sodium 129 potassium 3.9 chloride 95 bicarb is 32 BUN 11 creatinine 0.65 blood sugar 105 troponin 0.045 and 0.043 LDL 24.2, CBG 243 Patient is on prednisone 40 mg daily and DuoNebs and Symbicort. Pulmonary and cardiology is following. 08/31/2024 Patient is lying in the bed. Awake alert and oriented. No complaints of chest pain. Still having shortness of breath and expiratory wheezing on exam. Denied any nausea or vomiting. Able to tolerate oral diet. Patient has been aggressive and rude to the staff at times. Patient is also refusing medications and refused to get duplex scan and CT angiogram of the chest rule out DVT. Anticoagulation is on hold due to history of falls. Laboratory data showed WBC 17.8 hemoglobin 9.5 and platelets 317 sodium 128 potassium 4.0 chloride 94 bicarb is 27 BUN 11 creatinine 0.57 and troponin 0.045 Cardiology and pulmonary is on board. 09/01/2024 Patient is transferred to [facility] unit. Patient is sitting on the side of the bed. Awake alert and oriented. No complaints of chest pain. Shortness of breath at baseline. Expiratory wheezing on exam. Continued on prednisone 40 mg daily. Requiring 3 L oxygen via nasal cannula. Tolerating oral diet. Denied any worsening cough or sputum production. Patient has been afebrile overnight. Laboratory data showed WBC went up to 20.3 hemoglobin 9.8 and platelets 388 sodium 132 potassium 4.3 chloride 93 bicarb is 24.9 and BUN 10.8 and creatinine 0.6 and blood sugar 8.3. Will follow WBC count and monitor for infection. Physical Exam: General: nontoxic, no distress, appears at stated age, 3 L nasal cannula, obese Derm: warm, dry, intact Head: Abrasion over the right side of the forehead with dried blood, normocephalic, symmetric Eyes: EOMI, anicteric sclera Mouth: no lip lesion, mucus membranes moist Cardiovascular: S1 S2 reg, no murmur, rubs, or gallops Lungs: distant lung sounds, bilateral expiratory wheezing with scattered rhonchi. No crackles... No accessory muscle use Abdominal: soft, non-tender to palpataion, no appreciable organomegaly Extremities: no gross muscle atrophy, b/l 1+ leg edema, no contractures, 4/5 strength in all extremities Neuro: Alert, Oriented, CNII-XII grossly intact, gait normal Psych: well appearing, appropriate affect Patient is being discharged to F. Vital Signs - 24 hr 08/31/24 08/31/24 08/31/24 16:40 20:29 20:30 Temperature Pulse Rate Pulse Rate [ 102 H Dorsalis Pedis] Pulse Rate [ 80 72 Pulse Oximetery ] Respiratory 20 28 H 28 H Rate Blood Pressure [Left Arm] Blood Pressure 96/50 [Right Arm] O2 Sat by Pulse 95 82 L 94 L Oximetry 08/31/24 09/01/24 09/01/24 22:26 00:00 00:28 Temperature 98.4 F 97.9 F Pulse Rate Pulse Rate [ 82 Dorsalis Pedis] Pulse Rate [ 121 H 68 Pulse Oximetery ] Respiratory 16 20 Rate Blood Pressure [Left Arm] Blood Pressure 103/46 92/52 [Right Arm] O2 Sat by Pulse 97 98 96 Oximetry 09/01/24 09/01/24 09/01/24 06:01 06:09 06:57 Temperature 97.5 F L Pulse Rate 88 90 Pulse Rate [ Dorsalis Pedis] Pulse Rate [ 67 Pulse Oximetery ] Respiratory 18 Rate Blood Pressure [Left Arm] Blood Pressure 91/50 [Right Arm] O2 Sat by Pulse 93 L Oximetry 09/01/24 09/01/24 12:08 12:38 Temperature 97.9 F Pulse Rate Pulse Rate [ Dorsalis Pedis] Pulse Rate [ 47 L 45 L Pulse Oximetery ] Respiratory 18 18 Rate Blood Pressure 79/46 [Left Arm] Blood Pressure 88/64 [Right Arm] O2 Sat by Pulse 97 95 Oximetry Total time taken greater than 35 minutes including 18 minutes for counseling and coordination of care. Patient Condition at Discharge: Fair Plan - Discharge Summary Discharge Rx Participant: No New Discharge Prescriptions: New Sennosides [Senokot] 8.6 mg PO DAILY PRN tab PRN Reason: Constipation predniSONE See Taper PO DIRECTED #30 tab cefuroxime axetiL [Ceftin] 500 mg PO BID 5 Days #10 tab Continue Aspirin EC [Ecotrin Low Dose] 81 mg PO DAILY Budesonide/Formoterol Fumarate [Symbicort 160-4.5 Mcg Inhaler] 2 puff INHALATION RT-BID Ipratropium/Albuterol Sulfate [Combivent Respimat Inhaler] 1 puff INHALATION RT-QID Metoprolol Tartrate [Lopressor] 25 mg PO BID Clopidogrel Bisulfate [Plavix] 75 mg PO DAILY Tiotropium 18 Mcg/Puff [Spiriva] 2 puff INHALATION RT-DAILY Simvastatin [Zocor] 40 mg PO HS Albuterol Nebulized [Ventolin Nebulized] 2.5 mg INHALATION RT-QID Loratadine [Claritin] 10 mg PO DAILY Albuterol Inhaler [Ventolin Hfa Inhaler] 2 puff INHALATION RT-TID PRN PRN Reason: Shortness Of Breath Cholecalciferol [Vitamin D3 (25 Mcg = 1000 Iu)] 25 mcg PO BID Ondansetron Odt [Zofran ODT] 4 mg PO Q8HR PRN PRN Reason: Nausea And Vomiting Folic Acid 1 mg PO DAILY 14 Days #14 tab Meloxicam [Mobic] 7.5 mg PO DAILY HYDROcodone/APAP 5-325MG [Garita 5-325] 1 tab PO TID PRN PRN Reason: Pain Ferrous Sulfate [Iron (65 MG Elemental)] 325 mg PO W/LUNCH 14 Days #14 tab Ascorbic Acid [Vitamin C] 1,000 mg PO W/LUNCH #90 tab Furosemide [Lasix] 40 mg PO DAILY #0 Discontinued predniSONE [Deltasone] 40 mg PO DAILY #6 tab Spironolactone [Aldactone] 25 mg PO DAILY #90 tab Discharge Medication List Aspirin EC [Ecotrin Low Dose] 81 mg PO DAILY 06/22/18 [History] Budesonide/Formoterol Fumarate [Symbicort 160-4.5 Mcg Inhaler] 2 puff INHALATION RT-BID 06/22/18 [History] Ipratropium/Albuterol Sulfate [Combivent Respimat Inhaler] 1 puff INHALATION RT- QID 06/22/18 [History] Metoprolol Tartrate [Lopressor] 25 mg PO BID 06/22/18 [History] Clopidogrel Bisulfate [Plavix] 75 mg PO DAILY 07/01/18 [History] Albuterol Inhaler [Ventolin Hfa Inhaler] 2 puff INHALATION RT-TID PRN 12/07/19 [History] Albuterol Nebulized [Ventolin Nebulized] 2.5 mg INHALATION RT-QID 12/07/19 [History] Loratadine [Claritin] 10 mg PO DAILY 12/07/19 [History] Simvastatin [Zocor] 40 mg PO HS 12/07/19 [History] Tiotropium 18 Mcg/Puff [Spiriva] 2 puff INHALATION RT-DAILY 12/07/19 [History] Cholecalciferol [Vitamin D3 (25 Mcg = 1000 Iu)] 25 mcg PO BID 03/17/24 [History] HYDROcodone/APAP 5-325MG [Garita 5-325] 1 tab PO TID PRN 07/28/24 [History] Meloxicam [Mobic] 7.5 mg PO DAILY 07/28/24 [History] Ondansetron Odt [Zofran ODT] 4 mg PO Q8HR PRN 07/28/24 [History] Ferrous Sulfate [Iron (65 MG Elemental)] 325 mg PO W/LUNCH 14 Days #14 tab 08/04/24 [Rx] Folic Acid 1 mg PO DAILY 14 Days #14 tab 08/04/24 [Rx] Ascorbic Acid [Vitamin C] 1,000 mg PO W/LUNCH #90 tab 08/23/24 [Rx] Furosemide [Lasix] 40 mg PO DAILY #0 09/01/24 [Rx] Sennosides [Senokot] 8.6 mg PO DAILY PRN tab 09/01/24 [Rx] cefuroxime axetiL [Ceftin] 500 mg PO BID 5 Days #10 tab 09/01/24 [Rx] predniSONE See Taper PO DIRECTED #30 tab 09/01/24 [Rx] Follow up Appointment(s)/Referral(s): Enrrique Resee DO [Primary Care Provider] - 1-2 days Discharge Disposition: TRANSFER TO SNF/ECF
[2024-09-01 16:29] VITALS: PULSE 90
== END 2024-09-01 16:39 | DRG 280 ==
LOC: EC 19:15 → EEVIPCON 22:06 → 6NMEDSUR 22:06 → OBSVTOIN 22:06 → 6NMEDSUR 08-25 00:33 → 4SSUR 08-25 02:37 → 6NMEDSUR 08-25 03:03 → 4SSUR 08-25 04:23 → 6NMEDSUR 08-25 05:51 → 4SSUR 08-25 05:58 → 3SCARD 08-29 19:50 → 5NMEDONC 08-31 19:11
PROVIDERS: ADMIT Internal Medicine; ATTEND Internal Medicine
PROC: 05HB33Z Insertion of Infusion Device into Right Basilic Vein, Percutaneous Approach (ICD-10-PCS; principal; 2024-08-30 07:30)
DX: I48.0 Paroxysmal atrial fibrillation (principal); J96.21 Acute and chronic respiratory failure with hypoxia; I21.A1 Myocardial infarction type 2; E87.20 Acidosis, unspecified; J44.1 Chronic obstructive pulmonary disease with (acute) exacerbation; E87.1 Hypo-osmolality and hyponatremia; D63.8 Anemia in other chronic diseases classified elsewhere; Z68.41 Body mass index [BMI] 40.0-44.9, adult; I11.0 Hypertensive heart disease with heart failure; E11.9 Type 2 diabetes mellitus without complications; I27.20 Pulmonary hypertension, unspecified; F32.A Depression, unspecified; F10.10 Alcohol abuse, uncomplicated; I50.22 Chronic systolic (congestive) heart failure; E66.01 Morbid (severe) obesity due to excess calories; F10.11 Alcohol abuse, in remission; Z99.81 Dependence on supplemental oxygen; I25.10 Atherosclerotic heart disease of native coronary artery without angina pectoris; I25.2 Old myocardial infarction; M51.370 Other intervertebral disc degeneration, lumbosacral region with discogenic back pain only; R29.6 Repeated falls; S00.83XA Contusion of other part of head, initial encounter; W01.0XXA Fall on same level from slipping, tripping and stumbling without subsequent striking against object, initial encounter; G89.29 Other chronic pain; Y92.009 Unspecified place in unspecified non-institutional (private) residence as the place of occurrence of the external cause; K21.9 Gastro-esophageal reflux disease without esophagitis; E78.5 Hyperlipidemia, unspecified; F40.240 Claustrophobia; R55 Syncope and collapse; R53.81 Other malaise; F43.10 Post-traumatic stress disorder, unspecified; M54.40 Lumbago with sciatica, unspecified side; Z79.01 Long term (current) use of anticoagulants; Z79.02 Long term (current) use of antithrombotics/antiplatelets; Z79.1 Long term (current) use of non-steroidal anti-inflammatories (NSAID); Z91.81 History of falling; Z79.51 Long term (current) use of inhaled steroids; Z79.82 Long term (current) use of aspirin; Z79.84 Long term (current) use of oral hypoglycemic drugs; Z79.899 Other long term (current) drug therapy; Z86.0100 Personal history of colon polyps, unspecified; Z86.711 Personal history of pulmonary embolism; Z86.718 Personal history of other venous thrombosis and embolism; Z87.442 Personal history of urinary calculi; Z87.891 Personal history of nicotine dependence; Z95.5 Presence of coronary angioplasty implant and graft; Z60.2 Problems related to living alone; Z86.19 Personal history of other infectious and parasitic diseases; Z53.29 Procedure and treatment not carried out because of patient's decision for other reasons; Z28.82 Immunization not carried out because of caregiver refusal; Z71.3 Dietary counseling and surveillance; Z88.1 Allergy status to other antibiotic agents; Z88.8 Allergy status to other drugs, medicaments and biological substances
CPT/HCPCS: 36410; 36415; 70450; 70486; 71045; 71046; 72100; 72125; 76937; 80048; 80053; 80061; 82533; 83036; 83605; 83735; 83880; 84145; 84484; 85025; 85379; 85610; 85730; 87636; 93005; 94640; 94760; 96365; 99285